=== PATIENT | female | born 1935 | race Caucasian/White ===

== ENCOUNTER → 2016-11-10 | Outpatient (CLI) | payer OTHER ==
[~2016-11-10] MED LIST: ASPEC81 PO; CALC1TAB10 PO; CHOL1TAB4 PO; FSM70 PO; GLUC750T18 PO; LISI-461 PO
[2016-11-10 17:25] LABS: BASO % 0.3 %; BASO ABS # 0.02 K/uL (0-0.2); COMPLETE YES; EOS % 0.8 %; HEMATOCRIT 41.1 % (37-47); IG% 0.3 %; LYMPH % 28.1 %; LYMPH ABS # 1.86 K/uL (1.2-3.4); MEAN CELL VOLUME 97.9 fL (80-100); MEAN CORPUSCULAR HEMOGLOBIN 31.9 pg (25-34); MEAN CORPUSCULAR HGB CONC 32.6 g/dl (32-36); MEAN PLATELET VOLUME 11.1 fL (7.4-10.4); MONO % 7.3 %; NEUT % 63.2 %; PLATELET COUNT 179 K/uL (130-400); WHITE BLOOD COUNT 6.61 K/uL (4.8-10.8)
[2016-11-10 17:37] LABS: ALT/SGPT 18 U/L (12-78); BLOOD UREA NITROGEN 28 mg/dl (7-18); BUN/CREATININE RATIO 25.4 (10-20); CALCIUM 9.2 mg/dl (8.5-10.1); CARBON DIOXIDE 27 mmol/L (21-32); CHLORIDE 101 mmol/L (98-107); GLUCOSE 88 mg/dl (70-99); POTASSIUM 4.3 mmol/L (3.5-5.1); SODIUM 139 mmol/L (136-145)
[2016-11-10 17:47] LABS: ALB/GLOB RATIO 0.8 (0.9-2); ALKALINE PHOSPHATASE 56 U/L (45-117); AST/SGOT 19 U/L (15-37); THYROID STIMULATING HORMONE 0.775 uIu/ml (0.300-4.500)
[2016-11-11 06:11] LABS: ESTIMATED AVERAGE GLUCOSE 108 mg/dl; HA1C FLAG Normal (Normal)
--- NOTE | 2016-11-16 08:53 | CODING QUERY MEDICAL NECESSITY ---
SUPPORTING DIAGNOSIS NEEDED A supporting diagnosis is required for the test/procedure performed on this patient in order for us to be reimbursed by the patient's insurance. Please provide a supporting diagnosis for the following test/procedure listed below next to the test name along with your signature. *If there is no additional diagnosis for this patient that would support the following test/procedure please document that below next to the test/procedure. Test(s)/Procedure(s) that require a supporting diagnosis: * GLYCATED HEMOGLOBIN DIAGNOSIS: * DOS: 11/10/16 Provider Signature: Date: Thank you Eugenia Gleason Health Information Management Once completed, please kindly fax back to [phone] For questions please call [phone]
== END | disposition home or self-care (01) ==
LOC: C.LABBFT 12:11
PROVIDERS: ATTEND Internal Medicine
DX: M17.11 Unilateral primary osteoarthritis, right knee (principal); R73.01 Impaired fasting glucose

== ENCOUNTER → 2017-07-20 | Outpatient (CLI) | payer OTHER ==
[2017-07-20 16:49] LABS: BASO % 0.7 %; BASO ABS # 0.06 K/uL (0-0.2); COMPLETE YES; EOS % 1.2 %; HEMATOCRIT 38.5 % (37-47); IG% 0.4 %; LYMPH % 23.8 %; LYMPH ABS # 2.19 K/uL (1.2-3.4); MEAN CELL VOLUME 97.7 fL (80-100); MEAN CORPUSCULAR HGB CONC 33.8 g/dl (32-36); MONO % 6.6 %; NEUT % 67.3 %; PLATELET COUNT 258 K/uL (130-400); RED BLOOD COUNT 3.94 M/uL (4.2-5.4); WHITE BLOOD COUNT 9.19 K/uL (4.8-10.8)
[2017-07-20 17:09] LABS: ALT/SGPT 18 U/L (12-78); AST/SGOT 15 U/L (15-37); BLOOD UREA NITROGEN 52 mg/dl (7-18); BUN/CREATININE RATIO 26.9 (10-20); CALCIUM 8.6 mg/dl (8.5-10.1); CARBON DIOXIDE 26 mmol/L (21-32); CHLORIDE 102 mmol/L (98-107); CREATININE 1.93 mg/dl (0.60-1.20); GLUCOSE 98 mg/dl (70-99); POTASSIUM 4.3 mmol/L (3.5-5.1); SODIUM 137 mmol/L (136-145)
[2017-07-20 17:19] LABS: ALB/GLOB RATIO 0.9 (0.9-2); ALKALINE PHOSPHATASE 68 U/L (45-117); CHOLESTEROL 200 mg/dl (0-200); CHOLESTEROL/HDL RATIO 2.6; HDL CHOLESTEROL 78 mg/dl; LDL CHOLESTEROL CALCULATED 94 mg/dl; THYROID STIMULATING HORMONE 0.747 uIu/ml (0.300-4.500); TRIGLYCERIDES 140 mg/dl (0-150); VERY LOW DENSITY LIPOPROT CALC 28 mg/dl
== END | disposition home or self-care (01) ==
LOC: C.LABBC 15:32
PROVIDERS: ATTEND Physician Assistant Medical
DX: Z00.00 Encounter for general adult medical examination without abnormal findings (principal); I10 Essential (primary) hypertension; M81.0 Age-related osteoporosis without current pathological fracture; R73.01 Impaired fasting glucose

== ENCOUNTER → 2017-08-10 | Outpatient (CLI) | payer OTHER ==
--- NOTE | 2017-08-10 14:26 | ECHOCARDIOGRAM REPORT ---
*NOTICE TO RECEIVING LIBERTARIAN AGENCY This information is strictly Confidential and protected under [place] law. [place] law prohibits you from making any further disclosure of this information unless further disclosure is expressly permitted by the written consent of the person to whom it pertains or is authorized by law. A general authorization for the release of medical or other information is not sufficient for this purpose. Hospital accepts no responsibility if the information is made available to any other person, INCLUDING THE PATIENT. Interpretation Summary * Name: DMITRY RODRIGUEZ Study Date: 08/10/2017 12:09 PM BP: 176/80 mmHg * Patient Location: [facility], [place] HR: 56 * : 1935 (M/d/yyyy) Gender: Female Height: 62 in * Age: 82 yrs Ethnicity: [place] Weight: 180 lb * Ordering Physician: Pooja Ballard * Referring Physician: Pooja Ballard * Performed By: Gideon Vasquez RCS * * Reason For Study: Chest Pain * BSA: 1.8 m2 * -- Conclusions -- * 1. Normal LV size. Borderline concentric LVH. * 2. Normal LV systolic function. LVEF 60-65%. No regional wall motion abnormalities. * 3. Normal RV size and function. * 4. No significant valvular pathology. * 5. Grade I diastolic dysfunction. * 6. Moderate left atrial dilation. * 7. Normal estimated RA and PA pressures. * 8. No prior studies for comparison. Procedure Details * A complete two-dimensional transthoracic echocardiogram was performed (2D, M-mode, Doppler and color flow Doppler). Left Ventricle * The left ventricle is grossly normal size. * There is borderline concentric left ventricular hypertrophy. * Ejection Fraction = 60-65%. * No regional wall motion abnormalities noted. Right Ventricle * The right ventricle is grossly normal size. * The right ventricular systolic function is normal as assessed by tricuspid annular plane systolic excursion (TAPSE) (normal >1.5 cm). Atria * The left atrium is moderately dilated. * Right atrial size is normal. * No ASD detected; PFO is not assessed. Mitral Valve * The mitral valve is grossly normal. * There is no mitral valve stenosis. * There is trace mitral regurgitation. Tricuspid Valve * The tricuspid valve is not well visualized, but is grossly normal. * There is trace tricuspid regurgitation. Aortic Valve * The aortic valve opens well. * The aortic valve is trileaflet. * No hemodynamically significant valvular aortic stenosis. * There is no significant aortic regurgitation. Pulmonic Valve * The pulmonary valve is inadequately visualized, but the Doppler data is adequate for interpretation. * Pulmonic stenosis is absent. * There is no significant pulmonary regurgitation. Great Vessels * The aortic root and proximal ascending aorta are normal sized. Pericardium/Pleural * There is no pericardial effusion. Great Vessels * Normal inferior vena cava size and collapsability with sniff indicates a normal right atrial pressure of 3 mmHg * There is no evidence of pulmonary hypertension. The PA systolic pressure is less than 36 mmHg. Left Ventricular Diastolic Function * Grade I diastolic dysfunction, (abnormal relaxation pattern). MMode 2D Measurements and Calculations IVSd 1.1 cm IVSs 1.3 cm LVIDd 4.2 cm LVIDs 2.7 cm LVPWd 1.0 cm LVPWs 1.3 cm IVS/LVPW 1.0 FS 35.5 % EDV(Teich) 77.1 ml ESV(Teich) 26.7 ml EF(Teich) 65.3 % EDV(cubed) 72.3 ml ESV(cubed) 19.4 ml EF(cubed) 73.1 % % IVS thick 24.0 % % LVPW thick 24.3 % LV mass(C)d 147.4 grams LV mass(C)dI 80.7 grams/m\S\2 LV mass(C)s 110.0 grams LV mass(C)sI 60.2 grams/m\S\2 SV(Teich) 50.4 ml SI(Teich) 27.6 ml/m\S\2 SV(cubed) 52.9 ml SI(cubed) 28.9 ml/m\S\2 Ao root diam 3.6 cm Ao root area 10.2 cm\S\2 ACS 1.8 cm LA dimension 3.2 cm asc Aorta Diam 3.1 cm LA/Ao 0.88 EDV(MOD-sp4) 79.0 ml ESV(MOD-sp4) 33.0 ml EF(MOD-sp4) 58.2 % EDV(MOD-sp2) 86.0 ml ESV(MOD-sp2) 67.0 ml EF(MOD-sp2) 22.1 % SV(MOD-sp4) 46.0 ml SI(MOD-sp4) 25.2 ml/m\S\2 SV(MOD-sp2) 19.0 ml SI(MOD-sp2) 10.4 ml/m\S\2 Doppler Measurements and Calculations MV E max anastasiia 50.0 cm/sec MV A max anastasiia 85.4 cm/sec MV E/A 0.59 MV P1/2t max anastasiia 56.5 cm/sec MV P1/2t 99.1 msec MVA(P1/2t) 2.2 cm\S\2 MV dec slope 166.9 cm/sec\S\2 MV dec time 0.37 sec Ao V2 max 127.1 cm/sec Ao max PG 6.5 mmHg Ao max PG (full) 4.2 mmHg LV V1 max PG 2.3 mmHg LV V1 max 75.1 cm/sec PA V2 max 94.0 cm/sec PA max PG 3.5 mmHg TR max anastasiia 230.4 cm/sec
== END | disposition home or self-care (01) ==
LOC: C.CPL 12:05
PROVIDERS: ATTEND Physician Assistant Medical
DX: R07.9 Chest pain, unspecified (principal)

== ENCOUNTER → 2018-01-20 | Outpatient (CLI) | payer OTHER ==
[2018-01-20 16:38] LABS: BASO % 0.5 %; BASO ABS # 0.04 K/uL (0-0.2); EOS % 1.4 %; EOS ABS # 0.12 K/uL (0-0.5); HEMATOCRIT 40.1 % (37-47); IG# 0.05 K/uL (0.00-0.02); LYMPH % 24.5 %; LYMPH ABS # 2.06 K/uL (1.2-3.4); MEAN CORPUSCULAR HEMOGLOBIN 32.7 pg (25-34); MEAN CORPUSCULAR HGB CONC 32.4 g/dl (32-36); MEAN PLATELET VOLUME 10.2 fL (7.4-10.4); MONO % 7.6 %; MONO ABS # 0.64 K/uL (0.11-0.59); NEUT % 65.4 %; PLATELET COUNT 229 K/uL (130-400); RED CELL DISTRIBUTION WIDTH CV 12.8 % (11.5-14.5); RED CELL DISTRIBUTION WIDTH SD 46.3 fL (36.4-46.3); WHITE BLOOD COUNT 8.41 K/uL (4.8-10.8)
[2018-01-20 16:48] LABS: ALBUMIN 3.4 gm/dl (3.4-5.0); ALT/SGPT 18 U/L (12-78); AST/SGOT 21 U/L (15-37); BLOOD UREA NITROGEN 41 mg/dl (7-18); CALCIUM 8.7 mg/dl (8.5-10.1); CARBON DIOXIDE 30 mmol/L (21-32); GLUCOSE 97 mg/dl (70-99); POTASSIUM 4.9 mmol/L (3.5-5.1); SODIUM 139 mmol/L (136-145)
[2018-01-20 16:51] LABS: ALKALINE PHOSPHATASE 49 U/L (45-117); TOTAL PROTEIN 7.4 gm/dl (6.4-8.2)
[2018-01-21 07:33] LABS: HEMOGLOBIN A1C 5.5 % (4.5-5.6)
== END | disposition home or self-care (01) ==
LOC: C.LABBFT 11:32
PROVIDERS: ATTEND Internal Medicine
DX: I10 Essential (primary) hypertension (principal); M81.0 Age-related osteoporosis without current pathological fracture; R73.01 Impaired fasting glucose

== ENCOUNTER → 2018-01-25 | Outpatient (CLI) | payer OTHER ==
--- NOTE | 2018-01-25 13:01 | DIAGNOSTIC IMAGING REPORT ---
CHEST 2 VIEWS ROUTINE CLINICAL HISTORY: R06.09 Dyspnea on [id number] Fatigue, unspecified [id number] COMPARISON STUDY: 05/15/2014 FINDINGS: Mild stable cardiomegaly. Mild emphysematous change. Diaphragms smooth. There are no focal infiltrates. IMPRESSION: Mild emphysematous change. No acute process. The above report was generated using voice recognition software. It may contain grammatical, syntax or spelling errors. Electronically signed by: Petar Berry M.D. 01/25/2018 1:00 PM Dictated Date/Time: 01/25/2018 12:59 PM
== END | disposition home or self-care (01) ==
LOC: C.RADBC 12:32
PROVIDERS: ATTEND Internal Medicine
DX: R06.09 Other forms of dyspnea (principal); R53.83 Other fatigue

== ENCOUNTER → 2018-02-15 | Outpatient (CLI) | payer OTHER ==
[~2018-02-15] MED LIST changes: +ATROPINE SULFATE 0.1 MG/ML 10 ML SYR ONE; +DOBUTamine HCL 12.5 MG/ML 20 ML VIAL ONE; +METOPROLOL TARTRATE 1 MG/ML VIAL ONE
--- NOTE | 2018-02-15 13:42 | DOBUTAMINE ECHO ---
*NOTICE TO RECEIVING CONSTITUTION PARTY AGENCY This information is strictly Confidential and protected under [place] law. [place] law prohibits you from making any further disclosure of this information unless further disclosure is expressly permitted by the written consent of the person to whom it pertains or is authorized by law. A general authorization for the release of medical or other information is not sufficient for this purpose. Hospital accepts no responsibility if the information is made available to any other person, INCLUDING THE PATIENT. Interpretation Summary * Name: DMITRY RODRIGUEZ Study Date: 02/15/2018 09:07 AM BP: 147/77 mmHg * Patient Location: [facility] HR: 57 * : 1935 (M/d/yyyy) Gender: Female Height: 62 in * Age: 82 yrs Ethnicity: [place] Weight: 198 lb * Ordering Physician: Best Sow * Referring Physician: Best Sow * Performed By: Coleen Vasquez RCS * * Reason For Study: Dyspnea on Exertion, Fatigue * BSA: 1.9 m2 * -- Conclusions -- * Left ventricular systolic function is normal. * Normal dobutamine echocardiogram without evidence of inducible ischemia. Procedure Details * DOBUTAMINE ECHO, CPT#21039 Left Ventricular Findings with Stress * Normal dobutamine echocardiogram without evidence of inducible ischemia. Left Ventricle * The left ventricle is grossly normal size. * Left ventricular systolic function is normal. * The left ventricular wall motion is normal at rest. Mitral Valve * The mitral valve is grossly normal. Stress Parameters * Normal baseline electrocardiogram. * Stress ECG: No ST changes. No arrhythmias. * The stress portion of this study was personally supervised by the undersigned interpreting physician. * Rest heart rate was '57' BPM. * Rest blood pressure was '147/77' * Maximum heart rate achieved was 121 bpm. * Maximum heart rate was 88 % of maximum age-predicted heart rate. * Maximum blood pressure was '159/61' * Maximum Dobutamine infusion rate was '50' mcg/kg/min. * A total of .5 mg of intravenous Atropine was used to supplement Dobutamine for heart rate response. * Dobutamine infusion was terminated due to achieving target heart rate * A total of 5 mg of IV Metoprolol was administered to reverse Dobutamine-induced tachycardia. * The patient did not exhibit any symptoms during drug infusion. * Normal blood pressure response to exercise. Left Ventricular Findings with Stress * Limited study to evaluate for inducible ischemia Baseline EKG was normal sinus There were no significant ST or T-wave changes with dobutamine infusion Baseline echocardiogram demonstrated preserved LV systolic function with normal wall motion At peak dobutamine infusion there was normal augmentation of all segments without development of wall motion abnormality There were no symptoms reported during the test
== END | disposition home or self-care (01) ==
LOC: C.CPL 09:13
PROVIDERS: ATTEND Internal Medicine
DX: R06.09 Other forms of dyspnea (principal); R53.83 Other fatigue

== ENCOUNTER → 2018-04-18 | Outpatient (CLI) | payer OTHER ==
[~2018-04-18] MED LIST changes: -ATROPINE SULFATE 0.1 MG/ML 10 ML SYR ONE; -DOBUTamine HCL 12.5 MG/ML 20 ML VIAL ONE; -METOPROLOL TARTRATE 1 MG/ML VIAL ONE
--- NOTE | 2018-04-18 11:13 | DIAGNOSTIC IMAGING REPORT ---
SINUSES MIN 3 VIEWS ROUTINE CLINICAL HISTORY: R05 Cough COMPARISON STUDY: None. FINDINGS: The paranasal sinuses and mastoid air cells are clear. No fluid levels within the paranasal sinuses. The nasal septum is essentially midline. The orbital floors are intact. IMPRESSION: The paranasal sinuses and mastoid air cells are clear. Electronically signed by: Elmer Arizmendi M.D. 04/18/2018 11:12 AM Dictated Date/Time: 04/18/2018 11:06 AM
== END | disposition home or self-care (01) ==
LOC: C.RAD1850 10:33
PROVIDERS: ATTEND Physician Assistant
DX: R05 Cough (principal)

== ENCOUNTER 2020-03-20 11:22 | Observation (INO) ==
[2020-03-20 12:31] LABS: Basophils # (auto) 0.03 K/uL (0-0.2); Basophils % (auto) 0.3 %; Eosinophils # (auto) 0.02 K/uL (0-0.5); Eosinophils % (auto) 0.2 %; Hematocrit (blood only) 40.9 % (37-47); Hemoglobin 13.3 g/dL (12.0-16.0); Immature Granulocytes # (auto) 0.07 K/uL (0.00-0.02); Immature Granulocytes % (auto) 0.6 %; Lymphocytes # (auto) 0.89 K/uL (1.2-3.4); Lymphocytes % (auto) 8.2 %; Mean Corpuscular Hemoglobin 31.5 pg (25-34); Mean Corpuscular Hgb Conc 32.5 g/dL (32-36); Mean Corpuscular Volume 96.9 fL (80-100); Mean Platelet Volume 9.7 fL (7.4-10.4); Monocytes # (auto) 0.54 K/uL (0.11-0.59); Neutrophils # (auto) 9.24 K/uL (1.4-6.5); Neutrophils % (auto) 85.7 %; Platelet Count 259 K/uL (130-400); RDW Coefficient of Variation 12.7 % (11.5-14.5); Red Blood Count 4.22 M/uL (4.2-5.4); White Blood Count 10.79 K/uL (4.8-10.8)
[2020-03-20 12:49] LABS: Albumin Level 3.5 gm/dl (3.4-5.0); BUN Creatinine Ratio 23.4 (10-20); Calcium 9.2 mg/dl (8.5-10.1); Creatinine Clr Calc Pharmacy 27.1 ml/min; Est GFR (African American) 29.2; Est GFR (Non-African American) 25.2; Potassium 4.4 mmol/L (3.5-5.1)
[2020-03-20 12:52] LABS: Albumin Globulin Ratio 0.8 (0.9-2); Bilirubin,Total 0.5 mg/dl (0.2-1); Globulin 4.2 gm/dl (2.5-4.0); Total Protein 7.7 gm/dl (6.4-8.2)
[2020-03-20] MEDS ORDERED: ONDANSETRON INJ 2 MG/ML 2 ML VIAL IV STA (12:54)
[2020-03-20] MEDS ORDERED: SODIUM CHLORIDE 0.9% 1000ML 250 ML IV ONE (12:54)
[2020-03-20] MEDS ORDERED: SODIUM CHLORIDE 0.9% 1000ML 1,000 ML IV SCH (13:00)
--- NOTE | 2020-03-20 14:07 | Emergency Department Note ---
History of Present Illness General Chief complaint: GI Assessment Stated complaint: abd pain Source: patient, family and RN notes reviewed Mode of arrival: ambulatory Limitations: no limitations History of Present Illness Provider complaint: Vomiting, diarrhea Maximum Pain Intensity: 4 This patient is an 84-year-old female who presents emergency department with complaints of vomiting and diarrhea that began this morning. Patient states she was in her usual state of health this morning upon awakening. She made breakfast and ate it without difficulty. Shortly thereafter she became dizzy and nauseated. She vomited 4-5 times at the breakfast table and lost control of her bowels. Patient denies any blood in either the emesis or stool. Patient denies any significant fevers, chills, chest pain or shortness of breath. She states she has had several syncopal episodes in the past, but nothing clearly similar to this. She has no known sick contacts and lives at home with her family. Home Medications Home Medications Medication Instructions Recorded Confirmed Type aspirin 81 mg tablet,delayed 81 mg PO DAILY tab 07/10/19 03/20/20 History release albuterol sulfate 90 mcg/actuation 2 puffs INHALATION Q4H PRN #1 gm 10/02/19 03/20/20 History aerosol inhaler antiarthritic combination no.2 900 900 mg PO BID tab 10/02/19 03/20/20 History mg tablet calcium carbonate-vitamin D3 1,000 1 tab PO BID tab 10/02/19 03/20/20 History mg (2,500 mg)-800 unit tablet cholecalciferol (vitamin D3) 125 125 mcg PO DAILY tab 10/02/19 03/20/20 History mcg (5,000 unit) tablet clotrimazole-betamethasone 1 1 appln TOPICAL BID #60 gm 10/02/19 03/20/20 History %-0.05 % topical cream echinacea purpurea aerial 350 mg 350 mg PO DAILY cap 10/02/19 03/20/20 History capsule lactobacillus combination no.4 3 3,000 mmu cells PO DAILY 10/02/19 03/20/20 History billion cell capsule lutein 10 mg tablet 10 mg PO DAILY tab 10/02/19 03/20/20 History sodium chloride 0.65 % nasal spray 2 sprays INTRANASAL BID #1 ml 10/02/19 03/20/20 History aerosol fluticasone propionate 50 1 - 2 sprays INTRANASAL DAILY 01/10/20 03/20/20 Rx mcg/actuation nasal #18.2 ml spray,suspension lisinopril 20 1 tab PO DAILY #90 tab 02/12/20 03/20/20 Rx mg-hydrochlorothiazide 12.5 mg tablet metoprolol tartrate 25 mg tablet 12.5 mg PO BID #90 tab 03/03/20 03/20/20 Rx umeclidinium 62.5 mcg-vilanterol 1 puffs INHALATION DAILY #60 ea 03/17/20 03/20/20 Rx 25 mcg/actuation powdr for inhalation amoxicillin 500 mg PO TID #8 tab 03/21/20 Rx diclofenac sodium [Voltaren] 2 gm TOP QID #300 gm 03/22/20 Rx gabapentin 100 mg PO HS #30 cap 03/22/20 Rx Allergies Allergy/AdvReac Type Severity Reaction Status Date / Time latex Allergy Intermediate SEVERE Verified 03/20/20 12:21 ITCHING cephalexin Allergy Mild RASH Verified 03/20/20 12:21 Past Med/Surg History Medical History Arthritis, multiple joint involvement (Chronic) Balance problems (Chronic) Bradycardia (Chronic) CKD (chronic kidney disease), stage III (Chronic) COPD (chronic obstructive pulmonary disease) (Chronic) Dyspnea on exertion (Chronic) HTN (hypertension) (Chronic) Hypercholesterolemia (Chronic) Impaired fasting glucose (Chronic) Nocturia (Chronic) Osteoporosis (Chronic) Secondary hypothyroidism (Chronic) Syncope (Inactive) Syncope and collapse (Inactive 05/15/14) Surgical History H/O: hysterectomy (Resolved) History of breast biopsy History of bunionectomy History of carpal tunnel surgery History of inguinal hernia repair History of myringotomy History of rotator cuff surgery Jul 2011--Dr. Whitten Hx of adenoidectomy (Resolved) Hx of tonsillectomy (Resolved) S/P appendectomy (Resolved) S/P cholecystectomy (Resolved) Family History Mother Alzheimer disease Family/Other No problems noted. 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 and A total of 10 systems reviewed and were otherwise negative Physical Exam Vital Signs Vital Signs - 24 hr 03/20/20 11:35 03/20/20 12:31 03/20/20 14:00 Temperature 36.9 C Temperature Source Oral Pulse Rate 55 L Pulse Rate [Apical] 57 L 59 L Pulse Rhythm Regular Pulse Rhythm [Apical] Regular Regular Pulse Strength Normal Respiratory Rate 24 20 18 Respiratory Effort / Characteristics Non-Labored Spontaneous Non-Labored Spontaneous Non-Labored Spontaneous Respiratory Depth Normal Normal Respiratory Pattern Regular Regular Regular Blood Pressure 166/71 H Blood Pressure [Right Arm] 175/79 H 176/70 H Blood Pressure Mean 102 Blood Pressure Mean [Right Arm] 111 105 Pulse Oximetry 97 98 97 Oxygen Delivery Method Room Air Room Air Room Air Sepsis Recent Fever Within 48 Hours No Sepsis New/Unexplained Change in Mental Status No Sepsis Action Taken by Nursing No Action Required Vital signs reviewed. General: Elderly, generally well-appearing 84-year-old female, in no significant distress. HEENT: No scleral icterus, PERRLA, neck supple. Atraumatic. Cardiovascular: Regular rate and rhythm, no extra sounds. Pulmonary: Clear to auscultation bilaterally, normal work of breathing. Abdomen: Soft, obese, nontender, nondistended, positive bowel sounds. Musculoskeletal: Atraumatic, no peripheral edema. Neurologic: Patient awake alert and oriented x 3 Skin: Warm, dry, no rash Course Administered Medications Discontinued Medications Amoxicillin (Amoxil) 500 mg PO NOW STA Stop: 03/20/20 15:43 Last Admin: 03/20/20 16:07 Dose: 500 mg Documented by: [id number] Amoxicillin (Amoxil) 500 mg PO TID GARO Stop: 03/25/20 20:59 Last Admin: 03/21/20 09:30 Dose: 500 mg Documented by: [id number] Admin: 03/20/20 21:49 Dose: 500 mg Documented by: [id number] Amoxicillin (Amoxil) 500 mg PO BID [facility]; Protocol Stop: 03/25/20 20:59 Last Admin: 03/22/20 07:56 Dose: 500 mg Documented by: [id number] Admin: 03/21/20 21:31 Dose: 500 mg Documented by: [id number] Aspirin (Ecotrin Ectab) 81 mg PO DAILY [facility] Stop: 04/20/20 08:59 Last Admin: 03/22/20 07:54 Dose: 81 mg Documented by: [id number] Admin: 03/21/20 09:30 Dose: 81 mg Documented by: [id number] Betamethasone/Clotrimazole (Lotrisone 1/0.5%) 1 appln EXT BID [facility] Stop: 04/19/20 20:59 Last Admin: 03/22/20 07:57 Dose: 1 appln Documented by: [id number] Admin: 03/21/20 21:33 Dose: 1 appln Documented by: [id number] Admin: 03/21/20 09:26 Dose: Not Given Documented by: [id number] Admin: 03/20/20 21:51 Dose: 1 appln Documented by: [id number] Diclofenac Sodium (Voltaren 1% Top) 2 gm EXT QID [facility] Stop: 04/19/20 20:59 Last Admin: 03/22/20 07:58 Dose: 2 gm Documented by: [id number] Admin: 03/21/20 21:33 Dose: 2 gm Documented by: [id number] Admin: 03/21/20 17:41 Dose: Not Given Documented by: [id number] Admin: 03/21/20 13:56 Dose: 2 gm Documented by: [id number] Admin: 03/21/20 09:28 Dose: 2 gm Documented by: [id number] Admin: 03/20/20 21:51 Dose: 2 gm Documented by: [id number] Famotidine (Pepcid 20mg Iv Push) 20 mg IV ONE STA Stop: 03/20/20 15:43 Last Admin: 03/20/20 16:07 Dose: 20 mg Documented by: [id number] Fluticasone Propionate (Flonase) 1 sprays NA DAILY [facility] Stop: 04/20/20 08:59 Last Admin: 03/22/20 07:57 Dose: 1 sprays Documented by: [id number] Admin: 03/21/20 09:24 Dose: 1 sprays Documented by: [id number] Lisinopril/HCTZ (Prinzide 20/12.5mg) 1 tab PO DAILY GARO Stop: 04/20/20 08:59 Last Admin: 03/22/20 07:54 Dose: 1 tab Documented by: [id number] Admin: 03/21/20 09:30 Dose: 1 tab Documented by: [id number] Sodium Chloride (Nss 1000ml) 250 mls @ 999 mls/hr IV .Q16M ONE Stop: 03/20/20 13:09 Last Infusion: 03/20/20 13:35 Dose: 0 mls/hr Documented by: [id number] Admin: 03/20/20 13:15 Dose: 999 mls/hr Documented by: [id number] Sodium Chloride (Nss 1000ml) 1,000 mls @ 125 mls/hr IV .Q8H GARO Stop: 04/19/20 12:59 Last Infusion: 03/20/20 21:02 Dose: 0 mls/hr Documented by: [id number] Admin: 03/20/20 13:15 Dose: 125 mls/hr Documented by: [id number] Lorazepam (Ativan) 0.5 mg in 1 mls @ 1 mls/min IV NOW STA Stop: 03/20/20 15:43 Last Admin: 03/20/20 16:07 Dose: 1 mls/min Documented by: [id number] Sodium Chloride (Nss 1000ml) 1,000 mls @ 80 mls/hr IV .[id number] GARO Stop: 04/19/20 20:39 Last Infusion: 03/21/20 13:20 Dose: 0 mls/hr Documented by: [id number] Infusion: 03/21/20 13:20 Dose: 0 mls/hr Documented by: [id number] Admin: 03/21/20 10:41 Dose: 80 mls/hr Documented by: [id number] Infusion: 03/21/20 10:18 Dose: 80 mls/hr Documented by: [id number] Admin: 03/20/20 21:48 Dose: 80 mls/hr Documented by: [id number] Lactobacillus Acidophilus (Floranex) 4 tab PO DAILY GARO Stop: 04/20/20 08:59 Last Admin: 03/22/20 07:54 Dose: 4 tab Documented by: [id number] Admin: 03/21/20 09:30 Dose: 4 tab Documented by: [id number] Lidocaine (Lidoderm 5%) 1 patch TD QAM GARO Stop: 04/21/20 10:14 Last Admin: 03/22/20 11:51 Dose: 1 patch Documented by: [id number] Metoprolol Tartrate (Lopressor) 12.5 mg PO BID GARO Stop: 04/19/20 20:59 Last Admin: 03/22/20 07:56 Dose: Not Given Documented by: [id number] Admin: 03/21/20 21:36 Dose: 12.5 mg Documented by: [id number] Admin: 03/21/20 09:30 Dose: 12.5 mg Documented by: [id number] Admin: 03/20/20 21:52 Dose: 12.5 mg Documented by: [id number] Multivitamins/Minerals (Caltrate Plus) 1 tab PO BID GARO Stop: 04/19/20 20:59 Last Admin: 03/22/20 07:56 Dose: 1 tab Documented by: [id number] Admin: 03/21/20 21:32 Dose: 1 tab Documented by: [id number] Admin: 03/21/20 09:30 Dose: 1 tab Documented by: [id number] Admin: 03/20/20 21:48 Dose: 1 tab Documented by: [id number] Ondansetron HCl (Zofran) 4 mg IV NOW STA Stop: 03/20/20 12:55 Last Admin: 03/20/20 13:15 Dose: Not Given Documented by: [id number] Sodium Chloride (Simpson Nasal) 2 sprays NA BID GARO Stop: 04/19/20 20:59 Last Admin: 03/22/20 07:57 Dose: 2 sprays Documented by: [id number] Admin: 03/21/20 21:32 Dose: 2 sprays Documented by: [id number] Admin: 03/21/20 09:27 Dose: 2 sprays Documented by: [id number] Admin: 03/20/20 21:50 Dose: 2 sprays Documented by: [id number] Umeclidinium/Vilanterol (Anoro Ellipta 62.5/25 Mcg Inh) 1 puffs INH DAILY GARO Stop: 04/20/20 08:59 Last Admin: 03/22/20 07:56 Dose: 1 puffs Documented by: [id number] Admin: 03/21/20 09:23 Dose: 1 puffs Documented by: [id number] Vitamin D (Vitamin D3) 5,000 units PO DAILY GARO Stop: 04/20/20 08:59 Last Admin: 03/22/20 07:54 Dose: 5,000 units Documented by: [id number] Admin: 03/21/20 09:30 Dose: 5,000 units Documented by: [id number] Medical Decision Making Differential Diagnosis Differential diagnosis: Etiologies such as gastroenteritis, food borne illness, infections, appendicitis, diverticulitis, inflammatory bowel disease, obstruction, GI bleed, biliary pathology, cardiac process, intracranial process, as well as others were entertained. Medical Records Attestation: I reviewed the patient's medical records. Home Medications Current Medication List: was personally reviewed by me Laboratory Data Attestation: I reviewed the patient's lab results. Result diagrams: 03/20/20 12:13 03/21/20 10:31 Lab Results 03/20/20 03/20/20 03/20/20 Range/Units 12:13 12:13 12:13 WBC 10.79 (4.8-10.8) K/uL RBC 4.22 (4.2-5.4) M/uL Hgb 13.3 (12.0-16.0) g/dL Hct 40.9 (37-47) % MCV 96.9 (80-100) fL MCH 31.5 (25-34) pg MCHC 32.5 (32-36) g/dL RDW Std Deviation 45.0 (36.4-46.3) fL RDW Coeff of Stiven 12.7 (11.5-14.5) % Plt Count 259 (130-400) K/uL MPV 9.7 (7.4-10.4) fL Immature Gran % (Auto) 0.6 % Neut % (Auto) 85.7 % Lymph % (Auto) 8.2 % [place] % (Auto) 5.0 % Eos % (Auto) 0.2 % Baso % (Auto) 0.3 % Neut # (Auto) 9.24 H (1.4-6.5) K/uL Lymph # (Auto) 0.89 L (1.2-3.4) K/uL [place] # (Auto) 0.54 (0.11-0.59) K/uL Eos # (Auto) 0.02 (0-0.5) K/uL Baso # (Auto) 0.03 (0-0.2) K/uL Immature Gran # (Auto) 0.07 H (0.00-0.02) K/uL Sodium 134 L (136-145) mmol/L Potassium 4.4 (3.5-5.1) mmol/L Chloride 101 (98-107) mmol/L Carbon Dioxide 25 (21-32) mmol/L Anion Gap 8.0 (3-11) BUN 42 H (7-18) mg/dl Creatinine 1.80 H (0.6-1.2) mg/dl Est Cr Clr Drug Dosing 27.1 ml/min Est GFR ( Amer) 29.2 Est GFR (Non-Af Amer) 25.2 BUN/Creatinine Ratio 23.4 H (10-20) Glucose 143 H (70-99) mg/dl Calcium 9.2 (8.5-10.1) mg/dl Total Bilirubin 0.5 (0.2-1) mg/dl AST 18 (15-37) U/L ALT 19 (12-78) U/L Alkaline Phosphatase 63 (45-117) U/L Troponin I < 0.015 (0-0.045) ng/ml Total Protein 7.7 (6.4-8.2) gm/dl Albumin 3.5 (3.4-5.0) gm/dl Globulin 4.2 H (2.5-4.0) gm/dl Albumin/Globulin Ratio 0.8 L (0.9-2) Lipase 203 (73-393) U/L Urine Color Urine Appearance (Clear) Urine pH (4.5-7.5) Ur Specific [place] (1.000-1.030) Urine Protein (Negative) Urine Glucose (UA) (Negative) Urine Ketones (Negative) Urine Blood (Negative) Urine Nitrite (Negative) Urine Bilirubin (Negative) Urine Urobilinogen (Negative) Ur Leukocyte Esterase (Negative) Urine WBC (Auto) (0-5) /hpf Urine RBC (Auto) (0-4) /hpf U Hyaline Cast (Auto) (0-5) /lpf U Epithel Cells (Auto) (0-5) /lpf Urine Bacteria (Auto) (Negative) 03/20/20 Range/Units 14:45 WBC (4.8-10.8) K/uL RBC (4.2-5.4) M/uL Hgb (12.0-16.0) g/dL Hct (37-47) % MCV (80-100) fL MCH (25-34) pg MCHC (32-36) g/dL RDW Std Deviation (36.4-46.3) fL RDW Coeff of Stiven (11.5-14.5) % Plt Count (130-400) K/uL MPV (7.4-10.4) fL Immature Gran % (Auto) % Neut % (Auto) % Lymph % (Auto) % [place] % (Auto) % Eos % (Auto) % Baso % (Auto) % Neut # (Auto) (1.4-6.5) K/uL Lymph # (Auto) (1.2-3.4) K/uL [place] # (Auto) (0.11-0.59) K/uL Eos # (Auto) (0-0.5) K/uL Baso # (Auto) (0-0.2) K/uL Immature Gran # (Auto) (0.00-0.02) K/uL Sodium (136-145) mmol/L Potassium (3.5-5.1) mmol/L Chloride (98-107) mmol/L Carbon Dioxide (21-32) mmol/L Anion Gap (3-11) BUN (7-18) mg/dl Creatinine (0.6-1.2) mg/dl Est Cr Clr Drug Dosing ml/min Est GFR ( Amer) Est GFR (Non-Af Amer) BUN/Creatinine Ratio (10-20) Glucose (70-99) mg/dl Calcium (8.5-10.1) mg/dl Total Bilirubin (0.2-1) mg/dl AST (15-37) U/L ALT (12-78) U/L Alkaline Phosphatase (45-117) U/L Troponin I (0-0.045) ng/ml Total Protein (6.4-8.2) gm/dl Albumin (3.4-5.0) gm/dl Globulin (2.5-4.0) gm/dl Albumin/Globulin Ratio (0.9-2) Lipase (73-393) U/L Urine Color Yellow Urine Appearance Cloudy A (Clear) Urine pH 7.5 (4.5-7.5) Ur Specific [place] 1.013 (1.000-1.030) Urine Protein Negative (Negative) Urine Glucose (UA) Negative (Negative) Urine Ketones Negative (Negative) Urine Blood Negative (Negative) Urine Nitrite Positive A (Negative) Urine Bilirubin Negative (Negative) Urine Urobilinogen Negative (Negative) Ur Leukocyte Esterase 2+ H (Negative) Urine WBC (Auto) >30 H (0-5) /hpf Urine RBC (Auto) 0-4 (0-4) /hpf U Hyaline Cast (Auto) 1-5 (0-5) /lpf U Epithel Cells (Auto) 0-5 (0-5) /lpf Urine Bacteria (Auto) 3+ H (Negative) ECG Data Attestation: I personally reviewed and interpreted this ECG as follows: Indication: + chest pain and + vomiting Rate (beats per minute): 61 Rhythm: + normal sinus ECG Intervals/blocks: + Normal QT-c ECG ST segments: + Normal ST segments ECG Findings: + Q waves (Anterior); no PACs and no PVCs Blood Pressure Blood Pressure Findings: Elevated blood pressure Blood Pressure Disposition: did not require urgent referral MDM Narrative This patient was evaluated and appeared to be in no significant distress. IV ac cess was obtained and laboratory work was drawn. An order for cardiac monitoring was placed and the patient was found to be in a normal sinus rhythm. Patient was hydrated with normal saline solution and given IV Zofran for nausea. Patient's laboratory work is fairly reassuring with the exception of a mild creatinine elevation at 1.8. Troponin is normal. WBC is within normal limits. Urinalysis is concerning for infection. Patient has a documented allergy to Keflex. She was medicated with p.o. amoxicillin as she has grown a pansensitive E. coli from the urine in the past. Patient did express some substernal chest discomfort and was medicated with IV Pepcid as this is likely gastrointestinal from her recent vomiting episode. Patient was also given IV Ativan for her complaints of lower extremity cramping. After discussing the findings with the patient and her family member at the bedside, preparations for discharge were made. A short while later family called me back to the room and expressed their concern for the safety of the patient and how they would like to have her marianna tored.Consultation with case management as well as the hospitalist service was made. Patient seems happy with the plan and agrees. Impression & Plan Vomiting and diarrhea, UTI (urinary tract infection), Muscle cramps at night Discharge Plan Visit Data *Final* Discharge Date/Time: 03/20/20 19:56 Chief Complaint: GI Assessment Stated Complaint: abd pain ED Provider: Luly Elam Discharge Problem: Vomiting and diarrhea, UTI (urinary tract infection), Muscle cramps at night Patient Disposition: Home - Self-Care Condition: Good Discharge Instructions Interventions: ED Discharge Assessment Last Done: 03/20/20 19:56 Discharge Problem: UTI (urinary tract infection) Qualifiers: Urinary tract infection type: acute cystitis Hematuria presence: without hematuria Qualified Code(s): N30.00 - Acute cystitis without hematuria
[2020-03-20 15:04] LABS: Appearance Urine Cloudy (Clear); Bacteria Urine Automated 3+ (Negative); Bilirubin Urine Negative (Negative); Blood Urine Negative (Negative); Color Urine Yellow; Epithelial Cell Urine Auto 0-5 /lpf (0-5); Glucose Urine UA Negative (Negative); Ketones Urine Negative (Negative); Leukocyte Esterase Urine 2+ (Negative); Nitrite Urine Positive (Negative); Protein Urine Negative (Negative); RBC Urine Automated 0-4 /hpf (0-4); Specific Gravity Urine 1.013 (1.000-1.030); Urobilinogen Urine Negative (Negative); WBC Urine Automated >30 /hpf (0-5); pH Urine 7.5 (4.5-7.5)
[2020-03-20] MEDS ORDERED: LORazepam 0.5 MG/1 ML VIAL IV STA (15:42)
[2020-03-20] MEDS ORDERED: FAMOTIDINE 20MG/5ML IV PUSH IV STA (15:42)
[2020-03-20] MEDS ORDERED: AMOXICILLIN 500 MG CAP PO STA (15:42)
--- NOTE | 2020-03-20 19:08 | History & Physical Report ---
Date of Service March 20, 2020 Assessment & Plan (1) ARF (acute renal failure): Baseline cr 1.4-1.5 Cr on admission 1.8 Monitor with IVF (2) UTI (urinary tract infection): Noted on UA Cx pending started on amoxicillin, will continue PO WBC WNL, afebrile (3) Lower extremity pain: Noted for R LE TTP LE US pending TSH pending Mg, Phos pending K WNL Resolved in ED with ativan, hesitant to start this medication without further workup Appt with PCP for this on 03/21 at 10:30a (4) Hypercholesterolemia: Denies medication for this (5) HTN (hypertension): continue home meds Missed AM meds Monitor with HS metoprolol dosing (6) Impaired fasting glucose: Noted, monitor (7) Secondary hypothyroidism: Denies medication for this TSH pending (8) CKD (chronic kidney disease), stage III: Baseline cr 1.4-1.5 (9) COPD (chronic obstructive pulmonary disease): continue home meds (10) Hyperkalemia: States was told this recently K WNL on admission (11) DVT prophylaxis: SCDs History of Present Illness Primary Care Provider: Best Sow MD 84 y/o F c/o n/v/d. Pt state she woke this AM and took a shower. She had no issues with this other than R LE cramping that has been ongoing the last 2 weeks. She made breakfast and while she was eating, she had sudden onset of near syncope. She started having "severe" vomiting 5-6x and an episode of stool incontinence towards the end of this. She felt generally unwell after this and called 911. Pt denies fever, SOB, chest pain. She has had near syncope in the past, but never with v/d like this. No further bowel movements since the incontinence episode. Pt was given abx and IVF in the ED. She states she feels a tightness in her upper abd, more of a cramping, but feels much better at this time. Pt generally lives with her daughter, however she is on vacation to the [place] currently. Pt is not comfortable returning home alone at this time and would like to be monitored overnight. Pt has as an appt with PCP tomorrow for R LE cramping. This has been ongoing for the last 2 weeks. She cannot sleep due to it. No redness or swelling. No new medications, although she was told recently her K was elevated. She was seen by pulm earlier this week and referred to PCP for this issue. Pt was given ativan in the ED and states she felt her LE cramping relax. It was the first relief she has had for this since it started. Allergies Allergy/AdvReac Type Severity Reaction Status Date / Time latex Allergy Intermediate SEVERE Verified 03/20/20 12:21 ITCHING cephalexin Allergy Mild RASH Verified 03/20/20 12:21 Home Medications Home Medications Medication Instructions Recorded Confirmed Type aspirin 81 mg tablet,delayed 81 mg PO DAILY tab 07/10/19 03/20/20 History release albuterol sulfate 90 mcg/actuation 2 puffs INHALATION Q4H PRN #1 gm 10/02/19 03/20/20 History aerosol inhaler antiarthritic combination no.2 900 900 mg PO BID tab 10/02/19 03/20/20 History mg tablet calcium carbonate-vitamin D3 1,000 1 tab PO BID tab 10/02/19 03/20/20 History mg (2,500 mg)-800 unit tablet cholecalciferol (vitamin D3) 125 125 mcg PO DAILY tab 10/02/19 03/20/20 History mcg (5,000 unit) tablet clotrimazole-betamethasone 1 1 appln TOPICAL BID #60 gm 10/02/19 03/20/20 History %-0.05 % topical cream echinacea purpurea aerial 350 mg 350 mg PO DAILY cap 10/02/19 03/20/20 History capsule lactobacillus combination no.4 3 3,000 mmu cells PO DAILY 10/02/19 03/20/20 History billion cell capsule lutein 10 mg tablet 10 mg PO DAILY tab 10/02/19 03/20/20 History sodium chloride 0.65 % nasal spray 2 sprays INTRANASAL BID #1 ml 10/02/19 03/20/20 History aerosol diclofenac sodium 1 % topical gel 2 gm TOP QID #300 gm 12/31/19 03/20/20 Rx fluticasone propionate 50 1 - 2 sprays INTRANASAL DAILY 01/10/20 03/20/20 Rx mcg/actuation nasal #18.2 ml spray,suspension lisinopril 20 1 tab PO DAILY #90 tab 02/12/20 03/20/20 Rx mg-hydrochlorothiazide 12.5 mg tablet metoprolol tartrate 25 mg tablet 12.5 mg PO BID #90 tab 03/03/20 03/20/20 Rx umeclidinium 62.5 mcg-vilanterol 1 puffs INHALATION DAILY #60 ea 03/17/20 03/20/20 Rx 25 mcg/actuation powdr for inhalation amoxicillin 500 mg PO BID 7 Days #14 cap 03/20/20 Rx lorazepam [Ativan] 0.5 mg PO TID PRN #20 tab 03/20/20 Rx ondansetron 4 mg PO Q6H PRN #14 tab 03/20/20 Rx Past Med/Surg History Medical History Arthritis, multiple joint involvement (Chronic) Balance problems (Chronic) Bradycardia (Chronic) CKD (chronic kidney disease), stage III (Chronic) COPD (chronic obstructive pulmonary disease) (Chronic) Dyspnea on exertion (Chronic) HTN (hypertension) (Chronic) Hypercholesterolemia (Chronic) Impaired fasting glucose (Chronic) Nocturia (Chronic) Osteoporosis (Chronic) Secondary hypothyroidism (Chronic) Syncope (Inactive) Syncope and collapse (Inactive 05/15/14) Surgical History H/O: hysterectomy (Resolved) History of breast biopsy History of bunionectomy History of carpal tunnel surgery History of inguinal hernia repair History of myringotomy History of rotator cuff surgery Jul 2011--Dr. Whitten Hx of adenoidectomy (Resolved) Hx of tonsillectomy (Resolved) S/P appendectomy (Resolved) S/P cholecystectomy (Resolved) Family History Mother Alzheimer disease Family/Other No problems noted. 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 Smoking Status: Former smoker Tobacco Type: cigarettes ; Smoking End Date: 1995 ; Hx Alcohol Use: Yes Alcohol Intake Frequency: Rarely Alcohol Intake Frequency Comment: social Hx Substance Use: No Childhood Exposure to Second-Hand Smoke: Yes caffeine: Yes Dental Care, Regularly: No Physical Activity Frequency: 1-2 Times per Week Seatbelt Use: always Sunscreen Use: No Review of Systems Review of Systems: Pertinent positives and negatives reviewed in HPI--all others negative Physical Exam Constitutional: WD/WN, vitals as above Eyes: normal visual fuentes by confrontation and + anicteric sclerae Neck: normal visual inspection and trachea midline Respiratory: normal respiratory effort, lungs clear to auscultation Cardiovascular: Rate/Rhythm: regular rate and regular rhythm Gastrointestinal (Abdomen): Inspection/Auscultation: abdomen not distended Percussion/Palpation: abdomen soft; abdomen nontender Musculoskeletal: Head/Neck/Chest: normocephalic and head atraumatic negative for edema, peripheral pulses intact R LE with pain to palpation of calf. L is WNL. Skin: no rashes, warm and dry Neurologic: awake; not confused Speech / Cognition: normal speech Psychiatric: A+Ox3, euthymic affect Results & Data Results & Data ([facility]) Vital Signs (Past 12 Hours) Vital Signs Temp Pulse Pulse Resp BP BP Pulse Ox 03/20/20 18:32 67 18 174/76 H 95 03/20/20 17:30 70 18 157/80 H 95 03/20/20 16:30 68 18 178/68 H 95 03/20/20 16:00 59 L 18 175/69 H 96 03/20/20 14:00 59 L 18 176/70 H 97 03/20/20 12:31 57 L 20 175/79 H 98 03/20/20 11:35 36.9 C 55 L 24 166/71 H 97 ECG Rhythm: normal sinus Code Status & VTE Plan Code Status Full code VTE Prophylaxis Plan VTE Prophylaxis will be ordered: Yes PG Care Time/CCT Total # of Minutes Spent Total Time Spent with Patient: Total time spent is greater than 50% in coordination of care (as documented) at patient's floor/unit and/or counseling patient: Coding Level of Care Code 45721 OBS Care - Level 3 Diagnoses ARF (acute renal failure) N17.9 UTI (urinary tract infection) N30.00 Hematuria presence: without hematuria Urinary tract infection type: acute cystitis Lower extremity pain M79.606 Hypercholesterolemia E78.00 HTN (hypertension) I10 Impaired fasting glucose R73.01 Secondary hypothyroidism E03.8 CKD (chronic kidney disease), stage III N18.3 COPD (chronic obstructive pulmonary disease) J44.9 Hyperkalemia E87.5 DVT prophylaxis Z29.9 (1) UTI (urinary tract infection) Hematuria presence: without hematuria Urinary tract infection type: acute cystitis Qualified Code(s): N30.00 - Acute cystitis without hematuria
[2020-03-20] MEDS ORDERED: ALBUTEROL HFA 8 GM INHALER INH PRN (20:40)
[2020-03-20] MEDS ORDERED: ACETAMINOPHEN 325 MG TAB PO PRN (20:40)
[2020-03-20] MEDS ORDERED: MAGNESIUM HYDROXIDE SUSP 30 ML UDC PO PRN (20:40)
[2020-03-20] MEDS ORDERED: ONDANSETRON INJ 2 MG/ML 2 ML VIAL IV PRN (20:40)
[2020-03-20] MEDS ORDERED: ANTIARTHRITIC COMBINATION NO 2 900 MG PO SCH (21:00)
[2020-03-20] MEDS: SODIUM CHLORIDE 0.9% 1000ML 1,000 ML IV SCH (21:48)
[2020-03-20] MEDS: CALCIUM 600MG + VIT D 400 IU TAB PO SCH (21:48)
[2020-03-20] MEDS: AMOXICILLIN 500 MG CAP PO SCH (21:49)
[2020-03-20] MEDS: SODIUM CHLORIDE 0.65% NA SOLN 45 ML (OCEAN) SCH (21:50)
[2020-03-20] MEDS: DICLOFENAC SOD 1% GEL 100 GM TUBE EXT SCH (21:51)
[2020-03-20] MEDS: CLOTRIMAZOLE/BETAMETHASONE CR 15 GM TUBE EXT SCH (21:51)
[2020-03-20] MEDS: METOPROLOL TARTRATE 25 MG TAB PO SCH (21:52)
--- NOTE | 2020-03-20 22:26 | Electrocardiogram Report ---
Test Reason : Blood Pressure : / mmHG Vent. Rate : 061 BPM Atrial Rate : 061 BPM P-R Int : 208 ms QRS Dur : 094 ms QT Int : 444 ms P-R-T Axes : 019 -07 117 degrees QTc Int : 446 ms Poor data quality, interpretation may be adversely affected Normal sinus rhythm Cannot rule out Anterior infarct , age undetermined Nonspecific T wave abnormality Abnormal ECG When compared with ECG of 14-MAY-2014 23:39, Minimal criteria for Anterior infarct are now Present Nonspecific T wave abnormality no longer evident in Inferior leads Confirmed by Karthikeyan Long ([id number]) on 03/20/2020 10:26:25 PM Referred By: REFERRED SELF Confirmed By:Karthikeyan Long
--- NOTE | 2020-03-21 07:02 | Ultrasound Report ---
US venous doppler LE RT CLINICAL HISTORY: R LE pain/cramping COMPARISON STUDY: No previous studies for comparison. FINDINGS: Real-time and color flow Doppler imaging were performed. Flow was seen within the femoral, popliteal and calf veins with no intraluminal thrombus demonstrated. The patient has a history of gre ater saphenous vein removal.. There is a popliteal fossa cyst measuring 44 x 12 x 33 mm. IMPRESSION: 1. No evidence of right lower extremity DVT 2. Popliteal cyst ACT 112: Negative or not required by law. Electronically signed by: Ottoniel Villar M.D. 03/21/2020 7:01 AM
[2020-03-21] MEDS ORDERED: NON-FORMULARY MEDICATION (Lutein 10 MG) PO SCH (09:00)
[2020-03-21] MEDS ORDERED: ECHINACEA PURPUREA AERIAL PO SCH (09:00)
[2020-03-21] MEDS: UMECLIDINIUM/VILANTEROL 62.5/25MCG 7 PUFFS/INHALER INH SCH (09:23)
[2020-03-21] MEDS: FLUTICASONE PROPIONATE NA SPR 16 GM BTL SCH (09:24)
[2020-03-21] MEDS: CLOTRIMAZOLE/BETAMETHASONE CR 15 GM TUBE EXT SCH ×2 (09:26→21:33)
[2020-03-21] MEDS: SODIUM CHLORIDE 0.65% NA SOLN 45 ML (OCEAN) SCH ×2 (09:27→21:32)
[2020-03-21] MEDS: DICLOFENAC SOD 1% GEL 100 GM TUBE EXT SCH ×4 (09:28→21:33)
[2020-03-21] MEDS: ASPIRIN 81 MG ECTAB PO SCH (09:30)
[2020-03-21] MEDS: AMOXICILLIN 500 MG CAP PO SCH ×2 (09:30→21:31)
[2020-03-21] MEDS: METOPROLOL TARTRATE 25 MG TAB PO SCH ×2 (09:30→21:36)
[2020-03-21] MEDS: LISINOPRIL/HCTZ 20/12.5MG 1 TAB TAB PO SCH (09:30)
[2020-03-21] MEDS: CALCIUM 600MG + VIT D 400 IU TAB PO SCH ×2 (09:30→21:32)
[2020-03-21] MEDS: LACTOBACILLUS ACIDOPHILUS (FLORANEX) TAB PO SCH (09:30)
[2020-03-21] MEDS: CHOLECALCIFEROL 1,000 UNITS 25 MCG TAB PO SCH (09:30)
[2020-03-21] MEDS: SODIUM CHLORIDE 0.9% 1000ML 1,000 ML IV SCH (10:41)
[2020-03-21 11:34] LABS: BUN Creatinine Ratio 24.8 (10-20); Calcium 8.5 mg/dl (8.5-10.1); Creatinine Clr Calc Pharmacy 27.6 ml/min; Est GFR (African American) 34.2; Est GFR (Non-African American) 29.5; Magnesium 1.9 mg/dl (1.8-2.4); Potassium 4.3 mmol/L (3.5-5.1)
[2020-03-21 11:46] LABS: Phosphorus 2.8 mg/dl (2.5-4.9); Thyroid Stimulating Hormone 0.588 uIu/ml (0.300-4.500)
--- NOTE | 2020-03-21 14:05 | Hospitalist Progress Note ---
Date of Service March 21, 2020 Assessment & Plan (1) UTI (urinary tract infection): UA on admission showed WBCs, bacteria, leuk esterase, and nitrites. - Cx pending - Started on amoxicillin for prior E. coli sensitivity; continue PO (2) Left hand pain: Has left hand swelling and pain after forcing her middle finger back after it cramped. - Discussed with orthopedics today; concern for flexor tendon damage. - Getting hand x-rays initially; they will see her today and determine further work-up after exam. (3) ARF (acute renal failure): Baseline cr 1.4-1.5, eGFR ~30. - Cr. on admission 1.8; possibly mildly pre-renal from vomiting and diarrhea. - On IV fluids initially; Cr now down to 1.6. - Monitor (4) Lower extremity pain: Noted for R LE TTP. The history is unclear because it sometimes is in the legs, but [id number] also notes wandering, cramping pain. - RLE US was negative for DVT. - TSH, Mg, phos all normal. - X-ray of right tib/fib pending (5) HTN (hypertension): BP is 180/75 today. - Continue home lisinopril/HCTZ & beta-stacey - Monitor (6) Impaired fasting glucose: Noted on AM labs. Prior A1c was 5.6%, but that was in 2019. - Get A1c - Monitor (7) CKD (chronic kidney disease), stage III: Baseline cr 1.4-1.5. - As above (8) Secondary hypothyroidism: Denies medication for this. TSH was 0.59. - No needs (9) COPD (chronic obstructive pulmonary disease): No shortness of breath reported today. - Continue home meds (10) DVT prophylaxis: SCDs Admission and Anticipated Discharge Date Admission Date: March 20, 2020 Subjective No further nausea or vomiting today. Some slight diarrhea, but not too bad. Left hand still painful. Reports no fevers/chills, chest pain, shortness of breath, abdominal pain, nausea, or vomiting. Physical Exam Constitutional: WD/WN, vitals as above Eyes: EOM intact bilaterally; no conjunctival abnormality ENMT: external ear and nose normal, oropharynx normal Neck: trachea midline, no thyromegaly normal visual inspection Respiratory: normal respiratory effort, lungs clear to auscultation no respiratory distress Cardiovascular: RRR, no murmur, no edema Gastrointestinal (Abdomen): Inspection/Auscultation: abdomen normal to inspection; abdomen not distended Musculoskeletal: Extremities: + extremities abnormal to inspection (Swelling of left hand. Mildly tender spot in the right mcgrath.) Skin: no rashes, warm and dry Neurologic: moves all extremities and awake Psychiatric: Orientation: alert, oriented to person and cooperative Results & Data Results & Data ([facility]) Vital Signs (Past 12 Hours) Vital Signs Temp Pulse Pulse Resp BP BP Pulse Ox 03/21/20 12:39 36.4 C L 61 20 179/74 H 96 03/21/20 08:19 36.6 C 62 18 149/77 H 94 03/21/20 07:19 59 L 03/21/20 04:00 36.5 C 61 20 154/75 H 94 PG Care Time/CCT Total # of Minutes Spent Total Time Spent with Patient: Total time spent is greater than 50% in coordination of care (as documented) at patient's floor/unit and/or counseling patient: Coding Level of Care Code 66408 Subseq Hosp Care Lvl 3 Diagnoses UTI (urinary tract infection) N30.00 Hematuria presence: without hematuria Urinary tract infection type: acute cystitis Left hand pain M79.642 ARF (acute renal failure) N17.9 Lower extremity pain M79.606 HTN (hypertension) I10 Impaired fasting glucose R73.01 CKD (chronic kidney disease), stage III N18.3 Secondary hypothyroidism E03.8 COPD (chronic obstructive pulmonary disease) J44.9 DVT prophylaxis Z29.9 (1) UTI (urinary tract infection) Hematuria presence: without hematuria Urinary tract infection type: acute cystitis Qualified Code(s): N30.00 - Acute cystitis without hematuria
--- NOTE | 2020-03-21 14:10 | XRay Report ---
XR tibia fibula RT 2V CLINICAL HISTORY: Right leg pain COMPARISON STUDY: None. FINDINGS: No fracture or dislocation. Soft tissues are unremarkable. No radiopaque foreign bodies. Mo derate osteoarthritis within the knee. IMPRESSION: No fractures within the right lower leg. ACT 112: Negative or not required by law. Electronically signed by: Elmer Arizmendi M.D. 03/21/2020 2:09 PM
--- NOTE | 2020-03-21 14:12 | XRay Report ---
XR hand LT min 3V routine CLINICAL HISTORY: Left hand swelling COMPARISON: None. DISCUSSION: No acute fractures are visualized. There is chondrocalcinosis at the level of the wrist. There are erosive osteoarthritic changes involving the proximal distal interphalangeal joints. There is metacarpal phalangeal joint space narrowing with mild subluxations involving the second and third MCPs. Arthritic changes are also present the level the first carpal metacarpal joint. IMPRESSION: 1. No acute fractures 2. Moderately advanced erosive osteoarthritis ACT 112: Negative or not required by law. Electronically signed by: Ottoniel Villar M.D. 03/21/2020 2:10 PM
[2020-03-22] MEDS: CHOLECALCIFEROL 1,000 UNITS 25 MCG TAB PO SCH (07:54)
[2020-03-22] MEDS: LISINOPRIL/HCTZ 20/12.5MG 1 TAB TAB PO SCH (07:54)
[2020-03-22] MEDS: LACTOBACILLUS ACIDOPHILUS (FLORANEX) TAB PO SCH (07:54)
[2020-03-22] MEDS: ASPIRIN 81 MG ECTAB PO SCH (07:54)
[2020-03-22] MEDS: AMOXICILLIN 500 MG CAP PO SCH (07:56)
[2020-03-22] MEDS: UMECLIDINIUM/VILANTEROL 62.5/25MCG 7 PUFFS/INHALER INH SCH (07:56)
[2020-03-22] MEDS: METOPROLOL TARTRATE 25 MG TAB PO SCH (07:56)
[2020-03-22] MEDS: CALCIUM 600MG + VIT D 400 IU TAB PO SCH (07:56)
[2020-03-22] MEDS: FLUTICASONE PROPIONATE NA SPR 16 GM BTL SCH (07:57)
[2020-03-22] MEDS: SODIUM CHLORIDE 0.65% NA SOLN 45 ML (OCEAN) SCH (07:57)
[2020-03-22] MEDS: CLOTRIMAZOLE/BETAMETHASONE CR 15 GM TUBE EXT SCH (07:57)
[2020-03-22] MEDS: DICLOFENAC SOD 1% GEL 100 GM TUBE EXT SCH (07:58)
[2020-03-22 09:48] LABS: Estimated Average Glucose 114 mg/dl; Hemoglobin A1C 5.6 % (4.5-5.6)
[2020-03-22] MEDS ORDERED: LIDOCAINE 5% 1 PATCH TD SCH (10:15)
--- NOTE | 2020-03-22 10:35 | Orthopedic Consultation ---
Date of Consultation March 22, 2020 Assessment & Plan (1) Injury of extensor tendon of left hand: X-rays negative for fracture, extensive arthritis throughout the hand, suspect injury to the extensor tendon, recommend ice and elevation, splint immobilization and follow-up with hand specialist with [facility], [id number]. (2) Muscle cramp: (3) Leg pain, lateral: Atraumatic right lower lateral leg pain. Tenderness palpation over peroneal muscle belly, will order Lidoderm patch, recommend ice and elevation, will obtain lumbar spine x-rays, patient complaining of right-sided sciatica previously and intermittent numbness to her right lower extremity, lumbar radiculopathy on the differential, would consider Medrol Dosepak, PT OT pending x-rays. Thank you for the consultation. History of Present Illness Reason for Consultation: Left middle finger pain/right lower leg pain Attending Physician: Hemant Verde MD History of Present Illness Patient is an 84-year-old female who presents to [facility] secondary to acute onset of renal failure and near syncopal episode and nausea/vomiting. Also complaining of one-week history of left finger pain and several week history of right lower extremity pain. Acute atraumatic. Denies any injury reports possibly extending her finger when she felt sudden pain and swelling and noticed bruising to her left hand which has resolved over the last week. Denies any trauma to the right lower extremity reports worsening pain at night and cramping to her right lower extremity. Ultrasound was performed which was negative for DVT. Denies any numbness or tingling in her extremities. Denies F/C/N/V/SOB/CP. Allergies Allergy/AdvReac Type Severity Reaction Status Date / Time latex Allergy Intermediate SEVERE Verified 03/20/20 12:21 ITCHING cephalexin Allergy Mild RASH Verified 03/20/20 12:21 Home Medications Home Medications Medication Instructions Recorded Confirmed Type aspirin 81 mg tablet,delayed 81 mg PO DAILY tab 07/10/19 03/20/20 History release albuterol sulfate 90 mcg/actuation 2 puffs INHALATION Q4H PRN #1 gm 10/02/19 03/20/20 History aerosol inhaler antiarthritic combination no.2 900 900 mg PO BID tab 10/02/19 03/20/20 History mg tablet calcium carbonate-vitamin D3 1,000 1 tab PO BID tab 10/02/19 03/20/20 History mg (2,500 mg)-800 unit tablet cholecalciferol (vitamin D3) 125 125 mcg PO DAILY tab 10/02/19 03/20/20 History mcg (5,000 unit) tablet clotrimazole-betamethasone 1 1 appln TOPICAL BID #60 gm 10/02/19 03/20/20 History %-0.05 % topical cream echinacea purpurea aerial 350 mg 350 mg PO DAILY cap 10/02/19 03/20/20 History capsule lactobacillus combination no.4 3 3,000 mmu cells PO DAILY 10/02/19 03/20/20 History billion cell capsule lutein 10 mg tablet 10 mg PO DAILY tab 10/02/19 03/20/20 History sodium chloride 0.65 % nasal spray 2 sprays INTRANASAL BID #1 ml 10/02/19 03/20/20 History aerosol diclofenac sodium 1 % topical gel 2 gm TOP QID #300 gm 12/31/19 03/20/20 Rx fluticasone propionate 50 1 - 2 sprays INTRANASAL DAILY 01/10/20 03/20/20 Rx mcg/actuation nasal #18.2 ml spray,suspension lisinopril 20 1 tab PO DAILY #90 tab 02/12/20 03/20/20 Rx mg-hydrochlorothiazide 12.5 mg tablet metoprolol tartrate 25 mg tablet 12.5 mg PO BID #90 tab 03/03/20 03/20/20 Rx umeclidinium 62.5 mcg-vilanterol 1 puffs INHALATION DAILY #60 ea 03/17/20 03/20/20 Rx 25 mcg/actuation powdr for inhalation amoxicillin 500 mg PO TID #8 tab 03/21/20 Rx Patient History Medical History Arthritis, multiple joint involvement (Chronic) Balance problems (Chronic) Bradycardia (Chronic) CKD (chronic kidney disease), stage III (Chronic) COPD (chronic obstructive pulmonary disease) (Chronic) Dyspnea on exertion (Chronic) HTN (hypertension) (Chronic) Hypercholesterolemia (Chronic) Impaired fasting glucose (Chronic) Nocturia (Chronic) Osteoporosis (Chronic) Secondary hypothyroidism (Chronic) Syncope (Inactive) Syncope and collapse (Inactive 05/15/14) Surgical History H/O: hysterectomy (Resolved) History of breast biopsy History of bunionectomy History of carpal tunnel surgery History of inguinal hernia repair History of myringotomy History of rotator cuff surgery Jul 2011--Dr. Whitten Hx of adenoidectomy (Resolved) Hx of tonsillectomy (Resolved) S/P appendectomy (Resolved) S/P cholecystectomy (Resolved) Family History Mother Alzheimer disease Family/Other No problems noted. 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 Smoking Status: Never smoker Tobacco Type: cigarettes ; Smoking End Date: 1995 ; Hx Alcohol Use: No Hx Substance Use: No Childhood Exposure to Second-Hand Smoke: Yes caffeine: Yes Dental Care, Regularly: No Physical Activity Frequency: 1-2 Times per Week Seatbelt Use: always Sunscreen Use: No Review of Systems Review of Systems: All systems reviewed & are unremarkable except as noted in HPI & below Constitutional: as per Subjective / HPI Physical Exam Physical Exam: Left upper extremity is neurovascular sensory intact, +2 radial pulse, ulnar deviation of the MCP joints, tenderness to palpation dorsal aspect of the third MCP joint, loss of active extension of the third digit. No edema, erythema or injury to the skin. Compartments are soft and compressible. Capillary refill less than 2 seconds. RLE NVSI +EHL/FHL/TA/GS SILT grossly, +2 DP pulse, compartments soft and compressible, tenderness to palpation over lateral aspect of her right lower leg, no erythema or edema, skin intact no signs of trauma or visible infectious process. Constitutional: WD/WN, vitals as above Results & Data ([facility]) Vital Signs (Past 12 Hours) Vital Signs Temp Pulse Pulse Resp BP BP Pulse Ox 03/22/20 07:36 36.5 C 67 18 126/69 94 03/22/20 07:21 50 L 06/27/20 03:05 36.6 C 58 L 18 175/82 H 95 03/21/20 23:00 36.5 C 62 18 129/70 94 Diagnostic Findings XR hand LT min 3V routine CLINICAL HISTORY: Left hand swelling COMPARISON: None. DISCUSSION: No acute fractures are visualized. There is chondrocalcinosis at the level of the wrist. There are erosive osteoarthritic changes involving the proximal distal interphalangeal joints. There is metacarpal phalangeal joint space narrowing with mild subluxations involving the second and third MCPs. Ar thritic changes are also present the level the first carpal metacarpal joint. IMPRESSION: 1. No acute fractures 2. Moderately advanced erosive osteoarthritis XR tibia fibula RT 2V CLINICAL HISTORY: Right leg pain COMPARISON STUDY: None. FINDINGS: No fracture or dislocation. Soft tissues are unremarkable. No radiopaque foreign bodies. Moderate osteoarthritis within the knee. IMPRESSION: No fractures within the right lower leg.
--- NOTE | 2020-03-22 11:39 | XRay Report ---
XR lumbar spine min 4V routine HISTORY: Pain lumbar radiculopathy COMPARISON: None. FINDINGS: There is no fracture. Moderate degenerative disc changes throughout the entire lumbar regio n. Mild concavity superior endplate L5 consider old. Osteopenia. No evidence for subluxation. IMPRESSION: 1. Moderate generalized degenerative disc change. 2. Osteopenia. 3. No acute process. ACT 112: Negative or not required by law. The above report was generated using voice recognition software. It may contain grammatical, syntax or spelling errors. Electronically signed by: Petar Berry M.D. 03/22/2020 11:38 AM
--- NOTE | 2020-03-22 17:21 | Discharge Summary ---
Date of Service March 22, 2020 Admission HPI Per Admitting Provider 84 y/o F c/o n/v/d. Pt state she woke this AM and took a shower. She had no issues with this other than R LE cramping that has been ongoing the last 2 weeks. She made breakfast and while she was eating, she had sudden onset of near syncope. She started having "severe" vomiting 5-6x and an episode of stool incontinence towards the end of this. She felt generally unwell after this and called 911. Pt denies fever, SOB, chest pain. She has had near syncope in the past, but never with v/d like this. No further bowel movements since the incontinence episode. Pt was given abx and IVF in the ED. She states she feels a tightness in her upper abd, more of a cramping, but feels much better at this time. Pt generally lives with her daughter, however she is on vacation to the [place] currently. Pt is not comfortable returning home alone at this time and would like to be monitored overnight. Pt has as an appt with PCP tomorrow for R LE cramping. This has been ongoing for the last 2 weeks. She cannot sleep due to it. No redness or swelling. No new medications, although she was told recently her K was elevated. She was seen by pulm earlier this week and referred to PCP for this issue. Pt was given ativan in the ED and states she felt her LE cramping relax. It was the first relief she has had for this since it started. Principal Diagnosis UTI Likely left hand extensor tendon tear Possible lumbar radiculopathy vs. muscle body strain Discharge Exam Constitutional WD/WN, vitals as above Eyes EOM intact bilaterally; no conjunctival abnormality ENMT external ear and nose normal, oropharynx normal Neck trachea midline, no thyromegaly normal visual inspection Respiratory normal respiratory effort, lungs clear to auscultation no respiratory distress Cardiovascular RRR, no murmur, no edema Gastrointestinal (Abdomen) Inspection/Auscultation: abdomen normal to inspection; abdomen not distended Musculoskeletal Extremities: + extremities abnormal to inspection (Swelling of left hand. Mildly tender spot in the right mcgrath.) Skin no rashes, warm and dry Neurologic moves all extremities and awake Psychiatric Orientation: alert, oriented to person and cooperative Discharge Data Allergies Allergy/AdvReac Type Severity Reaction Status Date / Time latex Allergy Intermediate SEVERE Verified 03/20/20 12:21 ITCHING cephalexin Allergy Mild RASH Verified 03/20/20 12:21 Consultations 03/20/20 18:07 ED Decision to Admit Stat 03/21/20 13:04 Consult Orthopedic Surgery Routine Ordered Studies 03/20/20 20:40 US venous doppler LE RT Urgent Hospital Course (1) UTI (urinary tract infection): UA on admission showed WBCs, bacteria, leuk esterase, and nitrites. Presumed her symptoms of nausea and emesis and diarrhea stemmed from this. - Cx showed michele-sensitive E. coli - Discharged on amoxicillin x 3 more days. PCP f/u. (2) Left hand pain: Has left hand swelling and pain after forcing her middle finger back after it cramped. - Discussed with orthopedics today; presumed to be an extensor tendon tear. Splinted. Will see ortho-hand in the office. (3) Lower extremity pain: Noted for R LE TTP. The history is unclear because it sometimes is in the legs, but [id number] also notes wandering, cramping pain. - RLE US was negative for DVT. - TSH, Mg, phos all normal. - X-ray of right tib/fib normal. - Seen by orthopedics. Thought it might be a muscle belly strain vs. radiculopathy from a lumbar nerve impingement. Will try two things: 1) Topical relief with lidocaine patches, diclofenac gel, and icing it. 2) Low-dose gabapentin in the evenings. Can be titrated if this seems to help. 3) If neither help, consider ortho-spine referral, though [id number] (Alycia Williamson) in agreement with me that spinal surgery is a last resort. (4) ARF (acute renal failure): Baseline cr 1.4-1.5, eGFR ~30. - Cr. on admission 1.8; possibly mildly pre-renal from vomiting and diarrhea. - On IV fluids initially; Cr now down to 1.6. (5) HTN (hypertension): BP is 170/80 today. No symptoms of hypertensive urgency. - Continue home lisinopril/HCTZ & beta-stacey - PCP f/u (6) Impaired fasting glucose: Noted on AM labs. Prior A1c was 5.6%, but that was in 2019. - A1c was 5.6%. (7) CKD (chronic kidney disease), stage III: Baseline cr 1.4-1.5. - As above (8) Secondary hypothyroidism: Denies medication for this. TSH was 0.59. - No needs (9) COPD (chronic obstructive pulmonary disease): No shortness of breath reported today. - Continue home meds (10) DVT prophylaxis: SCDs Total Time Total Time Spent Total Time Spent (In Minutes): 35 Discharge Plan Discharge Items Patient Disposition: Home - Self-Care Reason For Visit: UTI Discharge Diagnosis: Urinary tract infection (also called bladder infection) Arthritis, possible lumbar stenosis, possible extensor tendon damage Condition on Discharge: Good Activity: Resume your previous activity Non-emergency contact: Primary Care Provider Call non-emergency contact if: your symptoms worsen and your temperature is above 101 Follow-up/Referrals: Best Sow MD [Primary Care Provider] - Adam Peng M.D. [Physician] - (Please call [facility] for follow up of your left hand issues and with Dr. Damon in regards to your back.) Diet: Heart Healthy Addtl Attending Provider Instructions: You were admitted with a bladder infection after having an episode of weakness, vomiting, and almost passing out. We did routine testing and found that you have evidence of bacteria in your bladder (also called a "UTI"). You were started on antibiotics for this, and we will continue this course for 3 days total which is a typical UTI duration. We did an ultrasound of your right leg as it was painful. There were no blood clots in your leg which is great news! The ultrasound shows a popliteal (Coe's) cyst which is a simple collection of fluid. This can cause some pain, but usually not at the site where you are having your pain. Dr. Dillon from [facility] saw you and felt that the leg pain may be due to a strained muscle or possibly some radicular pain from your back. We are trying a variety of things to help with the pain. 1) We are trying some topical agents to help with the pain if it is from a muscle strain in the right, lateral calf. These include lidocaine patches. You can also put the Voltaran (diclofenac) gel you already have on this area. Try to alternate these. In addition, using an ice pack could also help. Wrap a plastic bag of ice in a towel, and rest it on the area that hurts most. If it does not improve in 1-2 weeks, please follow up with the orthopedic doctors. 2) We are starting you on a low-dose medication called gabapentin. Please only use this at night. This medication helps with radicular pain (nerve pain), and if the pain is coming from your back as Dr. Dillon believes, it will hopefully help. It may also help with your cramping pain which is also thinks could be related to some neuropathy. For now, please only take this medication at night t o make sure it does not affect you adversely. Please see Dr. Sow in the next 1-2 weeks to be sure you are doing well and to coordinate your care. Pending Studies at Discharge: Yes Studies:: Urine culture Stand-Alone Forms: My [facility] [employer], Smoking Cessation Medications and DC Order Prescriptions: New amoxicillin 500 mg tablet 500 mg PO TID Qty: 8 RF: 0 gabapentin 100 mg capsule 100 mg PO HS Qty: 30 RF: 0 diclofenac sodium [Voltaren] 1 % gel 2 gm TOP QID Qty: 300 RF: 1 Continued fluticasone propionate 50 mcg/actuation spray,suspension 1 - 2 sprays intranasal DAILY Qty: 18.2 RF: 5 lisinopril-hydrochlorothiazide 20-12.5 mg tablet 1 tab PO DAILY Qty: 90 RF: 3 metoprolol tartrate 25 mg tablet 12.5 mg PO BID Qty: 90 RF: 3 umeclidinium-vilanterol [Anoro Ellipta] 62.5-25 mcg/actuation blister with device 1 puffs inhalation DAILY Qty: 60 RF: 5 calcium carbonate-vitamin D3 1,000 mg(2,500 mg)-800 unit tablet 1 tab PO BID RF: 0 glucosamine-chondroitin 900 mg tablet 900 mg PO BID RF: 0 Probiotic 3 billion cell capsule 3,000 mmu cells PO DAILY RF: 0 aspirin 81 mg tablet,delayed release (DR/EC) 81 mg PO DAILY RF: 0 clotrimazole-betamethasone 1-0.05 % cream 1 appln topical BID Qty: 60 RF: 0 echinacea purpurea aerial 350 mg capsule 350 mg PO DAILY RF: 0 lutein 10 mg tablet 10 mg PO DAILY RF: 0 sodium chloride 0.65 % aerosol,spray 2 sprays intranasal BID Qty: 1 RF: 0 albuterol sulfate 90 mcg/actuation HFA aerosol inhaler 2 puffs inhalation Q4H PRN (Reason: Shortness Of Breath) Qty: 1 RF: 0 cholecalciferol (vitamin D3) 125 mcg (5,000 unit) tablet 125 mcg PO DAILY RF: 0 Discharge Orders: Discharge Order (Routine); Ordered 03/22/20 Ordered By: Hemant Verde Admission Data Admit Date/Time: 03/20/20 19:26 Attending Provider: Hemant Verde Admit Provider: Moni Lowe Primary Care Provider: Best Sow Other Providers: Hemant Verde ; Husam Dillon Other Interventions: Discharge Summary Assessment (RN) Last Done: 03/22/20 13:57 DC Date/Time DO NOT enter until pt leaves facility: 03/22/20 14:43 Coding Level of Care Code 98787 OBS Care - Discharge Diagnoses UTI (urinary tract infection) N30.00 Hematuria presence: without hematuria Urinary tract infection type: acute cystitis Left hand pain M79.642 Lower extremity pain M79.606 ARF (acute renal failure) N17.9 HTN (hypertension) I10 Impaired fasting glucose R73.01 CKD (chronic kidney disease), stage III N18.3 Secondary hypothyroidism E03.8 COPD (chronic obstructive pulmonary disease) J44.9 DVT prophylaxis Z29.9
== END 2020-03-22 14:43 | disposition home or self-care (01) ==
LOC: ED 11:22 → 2N 11:22 → SUATTDRO 19:26 → 2N 19:56

== ENCOUNTER 2021-05-31 17:38 | Inpatient (IN) ==
[2021-05-31] MEDS ORDERED: CEFEPIME 2,000 MG/20 ML VIAL IV STA (18:44)
--- NOTE | 2021-05-31 18:54 | History & Physical Report ---
Date of Service May 31, 2021 Assessment & Plan (1) Gram-negative bacteremia: Plan: IV Cefepime Follow up blood cultures (2) Right arm cellulitis: Plan: Elevate limb Antibiotics as above Consult orthopedics (3) CKD (chronic kidney disease), stage III: Plan: Cr mildly elevated from baseline. Monitor with BMP from AM labs after IV fluids overnight Continue lisinopril for now but hold if worsening Cr in AM (4) HTN (hypertension): Plan: Continue lisinopril 10mg PO daily (5) Osteoporosis: Plan: Continue cholecalciferol supplementation (6) COPD (chronic obstructive pulmonary disease): Plan: Continue maintenance inhalers Plan: VTE Prophylaxis - low risk, SCDs Diet - regular Disposition - admit to med/surg as non-septic appearing Admission and Anticipated Discharge Date Admission Date: May 31, 2021 History of Present Illness Chief Complaint: Positive blood cultures Primary Care Provider: Best Sow MD Gayle Perkins is an 86 year old female who presents to the ER after her previous blood cultures are positive for Gram negative bacilli. She reports have pain in her right hand at the bottom of her thumb for the past 1.5 weeks. No trauma. Yesterday it suddenly became much more painful, swollen, warm and erythematous. She came to the ER last night and was diagnosed with cellulitis and given a dose of clindamycin and prescribed this to take at home. She reports her pain and swelling are worse than last night but mainly returned today as a call back due to positive blood cultures. She denies any other infective symptoms such as nasal congestion, sinus pain, shortness of breath, cough, chest pain, abdominal pain, diarrhea, flank pain or dysuria. In the ER WBC improved from 11.53 to 10.92. She was prescribed a dose of IV cefepime. She was referred to medicine for admission and ongoing management of bacteremia. Allergies Allergy/AdvReac Type Severity Reaction Status Date / Time latex Allergy Intermediate SEVERE Verified 05/31/21 19:12 ITCHING cephalexin Allergy Mild RASH Verified 05/31/21 19:12 Home Medications Medication Instructions Recorded Confirmed Type cholecalciferol (vitamin D3) 125 125 mcg PO DAILY tab 10/02/19 05/31/21 History mcg (5,000 unit) tablet aspirin 81 mg tablet,delayed 81 mg PO [id number] tab 04/03/20 05/31/21 History release diclofenac sodium 1 % topical gel See Rx Instructions .ROUTE 10/02/20 05/31/21 Rx .COMPLEX #300 g nystatin 100,000 unit/gram topical 1 applic TOPICAL DAILY PRN 12/23/20 05/31/21 History cream fluocinonide 0.05 % topical cream 1 applic TOPICAL DAILY g 01/19/21 05/31/21 History triamcinolone acetonide 0.1 % 1 applic TOPICAL UD 01/19/21 05/31/21 History topical cream glucosamine 500 2 cap PO DAILY cap 02/04/21 05/31/21 History nr-ejeuyhhor-uazbelcz comp 400 mg-D3 667 unit-C-Mn cap gabapentin 100 mg capsule 200 mg PO HS #60 cap 04/02/21 05/31/21 Rx fluticasone propionate 50 1 - 2 spray INTRANASAL DAILY #18.2 04/03/21 05/31/21 Rx mcg/actuation nasal ml spray,suspension lisinopril 20 mg tablet 10 mg PO DAILY #45 tab 04/08/21 05/31/21 Rx albuterol sulfate 90 mcg/actuation 2 puff INHALATION Q4H PRN #1 g 04/10/21 05/31/21 History aerosol inhaler umeclidinium 62.5 mcg-vilanterol 1 ea INHALATION DAILY 04/29/21 05/31/21 History 25 mcg/actuation powdr for inhalation (Anoro Ellipta) vitamins A,C,Y-udqf-fzbokt 14,320 1 cap PO BID 05/12/21 05/31/21 History unit-226 mg-200 unit capsule (PreserVision AREDS) clindamycin HCl 150 mg capsule 150 mg PO Q6H 7 Days #28 cap 05/30/21 05/31/21 Rx Past Med/Surg History Medical History ARF (acute renal failure) Arthritis, multiple joint involvement Balance problems Bradycardia CKD (chronic kidney disease), stage III COPD (chronic obstructive pulmonary disease) Dyspnea on exertion HTN (hypertension) Hypercholesterolemia Impaired fasting glucose Nocturia Osteoporosis Secondary hypothyroidism Syncope Syncope and collapse (05/15/14) Syncope and collapse UTI (urinary tract infection) Surgical History H/O: hysterectomy History of breast biopsy History of bunionectomy History of carpal tunnel surgery History of inguinal hernia repair History of myringotomy History of rotator cuff surgery Jul 2011--Dr. Whitten Hx of adenoidectomy Hx of tonsillectomy S/P appendectomy S/P cholecystectomy Family History Mother Alzheimer disease Family/Other No problems noted. Father Emphysema, unspecified Grandfather (Maternal) Colorectal cancer Uncle Prostate cancer Denies family history of Ovarian cancer Coronary heart disease Heart disease Myocardial infarction Breast cancer Social History Smoking Status: Former smoker Tobacco Type: Cigarettes Age Started Using Tobacco: 23; Age Quit Using Tobacco: 61; Number of Years Since Quit: 30; Second Hand Exposure: No; Do You Dip or Chew Tobacco: No; Tobacco Cessation Education Requested by Patient: No Hx Alcohol Use: Yes Alcohol type: wine Alcohol Intake Frequency Comment: social Hx Substance Use: No Preferred Language: Urdu Communication Ability: Effective Visual Impairment: Limited Hearing Ability: Use of Hearing Aid Fruit Washer Required: No Beliefs That Will Affect Care: None marital status: Current Living Situation: Alone Current Living Situation Comment: independent living current occupational 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[employer] How many Children do You have: 3 Other Information That Helps Us Care for You: No Feels Safe at Home: Yes Safety Concerns: Feels Safe At This Time Childhood Exposure to Second-Hand Smoke: Yes caffeine: Yes Dental Care, Regularly: No Physical Activity Frequency: Does not Exercise Seatbelt Use: always Sunscreen Use: No Assistive Devices: Cane, Glasses and Hearing Aid - Bilateral Review of Systems Review of Systems: All systems reviewed & are unremarkable except as noted in HPI & below Physical Exam Constitutional: WD/WN, vitals as above Eyes: + anicteric sclerae; normal pupil size Neck: normal visual inspection Respiratory: normal respiratory effort, lungs clear to auscultation Cardiovascular: RRR, no murmur, no edema Gastrointestinal (Abdomen): normal bowel sounds, soft, nontender, no hepatosplenomegaly Musculoskeletal: no cyanosis or clubbing, extremities motor strength 5/5 Skin: + erythema (warmth and swelling R mid forearm to 1st IPJ, no open wound) Neurologic: moves all extremities and awake; not confused Psychiatric: A+Ox3, euthymic affect Results & Data Results & Data ([facility]) Vital Signs (Past 12 Hours) Vital Signs Temp Pulse Resp BP Pulse Ox 05/31/21 17:39 36.8 C 80 18 139/64 93 Diagnostic Findings XR hand RT min 3V routine CLINICAL HISTORY: pain/swelling COMPARISON: None. DISCUSSION: No definite acute fracture dislocation seen. Osseous structures are demineralized which limits evaluation. Deformity of the fifth and first metacarpal bones could represent sequela from prior trauma. No blastic or lytic lesions are seen. Extensive degenerative changes within the radiocarpal, first and second carpometacarpal, all distal and mid interphalangeal joints as well as second and third metacarpophalangeal joints with multiple osteophytes and areas of periarticular calcifications are seen representing extensive degenerative process. No erosive lesions are seen. Calcifications within TFCC region are seen. Diffuse soft tissue edema is demonstrated. IMPRESSION: Extensive degenerative changes and possible sequela from prior trauma as detailed above. Medications Administered ER Medications Given: Cefepime IV 2g ECG Indication: other (bacteremia) Rate (beats per minute): 72 Findings: + nonspecific-ST abn (Lateral) Comparison ECG Date: from (May 30, 2021) Change: no significant change Code Status & VTE Plan Code Status Full VTE Prophylaxis Plan VTE Prophylaxis will be ordered: Yes Reason for no VTE drug order: Treatment not indicated PG Care Time/CCT Total # of Minutes Spent Total Time Spent with Patient: Total time spent is greater than 50% in coordination of care (as documented) at patient's floor/unit and/or counseling patient: Coding Level of Care Code 99408 Initial Inpt Care Lvl 2 Diagnoses Right arm cellulitis L03.113 Osteoporosis M81.0 HTN (hypertension) I10 CKD (chronic kidney disease), stage III N18.3 COPD (chronic obstructive pulmonary disease) J44.9 Gram-negative bacteremia R78.81
--- NOTE | 2021-05-31 18:54 | Emergency Department Note ---
Impression & Plan Bacteremia, Cellulitis, Positive blood culture, Leukocytosis ED Provider Note NAME: DMITRY RODRIGUEZ AGE: 86 SEX: F : 1935 ARRIVES VIA: Walk-In INFORMANT: [Patient] ED PROVIDER(S): [Aneudy Ríos MD] CHIEF COMPLAINT: Abnormal labs HISTORY OF PRESENT ILLNESS: The patient is an 86-year-old female who presents to the ED after a phone call from this hospital for a positive blood cultures. Her blood cultures from yesterday grew gram-negative bacilli. She had presented with a right hand and arm cellulitis. She was placed on clindamycin. The patient has had symptoms of erythema to the right hand, wrist and distal forearm for about 1-1/2 weeks. Yesterday, it became quite painful. She is fatigued but she states this is not that uncommon at her age. She has not noticed a fever. There has been no vomiting, no diarrhea. She states that her skin is thin and she oftentimes has open areas on her forearms. She points to a healing area on the right proximal forearm. The patient had been discharged on clindamycin, this will not cover gram- negative bacilli. REVIEW OF SYSTEMS: See HPI for pertinent positives and negatives. A total of ten systems were reviewed and were otherwise negative. PMHx/PSHx: See Below SOCIAL HISTORY: See Below. PHYSICAL EXAM: GENERAL: Patient is in no acute distress. HEENT: No acute trauma, normocephalic atraumatic, mucous membranes moist, no nasal congestion, no scleral icterus. NECK: No stridor, no adenopathy, no meningismus, trachea is midline. LUNGS: Clear to auscultation bilaterally, no wheeze, no rhonchi, breath sounds equal. HEART: Without murmurs gallops or rubs, regular rate and rhythm. ABDOMEN: Soft, nontender, bowel sounds positive, no hernias, no peritonitis. EXTREMITIES: No cyanosis. The patient does have erythema, warmth and tenderness involving the right thumb, right radial hand and wrist and right radial forearm. No drainage. No pain to move the joints of the fingers, thumb or wrist. NEUROLOGIC: Oriented x 3, no acute motor or sensory deficits, no focal weakness. SKIN: No jaundice, no diaphoresis. DIFFERENTIAL DIAGNOSIS: Sepsis, bacteremia, UTI, pneumonia, metabolic abnormality, electrolyte abnormalities, cardiac sources, cellulitis, bacteremia, intracerebral event, toxicologic etiology, neurologic event, as well as other pathologies. EMERGENCY DEPARTMENT COURSE/PROCEDURES: ECG: Indication was possible sepsis. The ECG shows a normal sinus rhythm with a rate of 72. There is some T wave inversion in the lateral leads. There is no ST elevation, no PVCs. The QTc is 444. Compared to an ECG from 30 May 2021, there is no significant change. Continuous Cardiac Monitoring: An order was placed for continuous cardiac monitoring. The monitor shows a rate of 80 with normal sinus rhythm. Critical Care Note: I have personally spent 39 minutes of critical care time in the direct management of this patient. This includes bedside care, interpretation of diagnostic studies, and testing, discussion with consultants, patient, and family members, and other required patient management activities. This 39 minutes is in excess of all separately billable procedures. MEDICAL DECISION MAKING: There is a mild leukocytosis which would be consistent with infection. The patient does have an anemia. The anemia is baseline looking back at previous testing. There is a normal platelet count. Creatinine is somewhat elevated co nsistent with some renal insufficiency/dehydration. Creatinine values are similar to previous values. Lactic acid level is not elevated making severe sepsis less likely. Magnesium somewhat low at 1.7. No concerning liver enzyme elevation. Covid testing returned negative. Looking at the patient's results from yesterday, her blood cultures did grow gram-negative bacilli. She is on clindamycin which will not cover gram-negative organisms. The patient has a right hand cellulitis. This has led to bacteremia. Hospitalization is warranted. She was given IV cefepime, she received oral magnesium. I did speak with the patient about her findings, she understands our concerns. I did speak with the onsite case manager. The on-call hospitalist was consulted. Past Med/Surg History Medical History ARF (acute renal failure) Arthritis, multiple joint involvement Balance problems Bradycardia CKD (chronic kidney disease), stage III COPD (chronic obstructive pulmonary disease) Dyspnea on exertion HTN (hypertension) Hypercholesterolemia Impaired fasting glucose Nocturia Osteoporosis Secondary hypothyroidism Syncope Syncope and collapse (05/15/14) Syncope and collapse UTI (urinary tract infection) Surgical History H/O: hysterectomy History of breast biopsy History of bunionectomy History of carpal tunnel surgery History of inguinal hernia repair History of myringotomy History of rotator cuff surgery Jul 2011--Dr. Whitten Hx of adenoidectomy Hx of tonsillectomy S/P appendectomy S/P cholecystectomy Family History Mother Alzheimer disease Family/Other No problems noted. Father Emphysema, unspecified Grandfather (Maternal) Colorectal cancer Uncle Prostate cancer Denies family history of Ovarian cancer Coronary heart disease Heart disease Myocardial infarction Breast cancer Social History Smoking Status: Never smoker Tobacco Type: Cigarettes Age Started Using Tobacco: 23; Age Quit Using Tobacco: 61; Number of Years Since Quit: 30; Second Hand Exposure: No; Hx Alcohol Use: No Hx Substance Use: No Preferred Language: Citizen Of [place] Communication Ability: Effective Visual Impairment: Limited Hearing Ability: Use of Hearing Aid Bulb Brander Required: No Beliefs That Will Affect Care: None marital status: Current Living Situation: Family Current Living Situation Comment: dtr current occupational 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[employer] How many Children do You have: 3 Feels Safe at Home: Yes Childhood Exposure to Second-Hand Smoke: Yes caffeine: Yes Dental Care, Regularly: No Physical Activity Frequency: Does not Exercise Seatbelt Use: always Sunscreen Use: No Assistive Devices: Glasses and Hearing Aid - Bilateral Allergies Allergies Allergy/AdvReac Type Severity Reaction Status Date / Time latex Allergy Intermediate SEVERE Verified 05/31/21 19:12 ITCHING cephalexin Allergy Mild RASH Verified 05/31/21 19:12 Home Meds Home Medications Medication Instructions Recorded Confirmed cholecalciferol (vitamin D3) 125 125 mcg PO DAILY tab 10/02/19 05/31/21 mcg (5,000 unit) tablet aspirin 81 mg tablet,delayed 81 mg PO 3XWK tab 04/03/20 05/31/21 release nystatin 100,000 unit/gram topical 1 applic TOPICAL DAILY PRN 12/23/20 05/31/21 cream fluocinonide 0.05 % topical cream 1 applic TOPICAL DAILY g 01/19/21 05/31/21 triamcinolone acetonide 0.1 % 1 applic TOPICAL UD 01/19/21 05/31/21 topical cream glucosamine 500 2 cap PO DAILY cap 02/04/21 05/31/21 xz-ksaaqmjjh-tlvdvgup comp 400 mg-D3 667 unit-C-Mn cap albuterol sulfate 90 mcg/actuation 2 puff INHALATION Q4H PRN #1 g 04/10/21 05/31/21 aerosol inhaler umeclidinium 62.5 mcg-vilanterol 1 ea INHALATION DAILY 04/29/21 05/31/21 25 mcg/actuation powdr for inhalation (Anoro Ellipta) vitamins A,C,B-phmt-fwrmvq 14,320 1 cap PO BID 05/12/21 05/31/21 unit-226 mg-200 unit capsule (PreserVision AREDS) Previous Rx's Medication Instructions Recorded diclofenac sodium 1 % topical gel See Rx Instructions .ROUTE 10/02/20 .COMPLEX #300 g gabapentin 100 mg capsule 200 mg PO HS #60 cap 04/02/21 fluticasone propionate 50 1 - 2 spray INTRANASAL DAILY #18.2 04/03/21 mcg/actuation nasal ml spray,suspension lisinopril 20 mg tablet 10 mg PO DAILY #45 tab 04/08/21 clindamycin HCl 150 mg capsule 150 mg PO Q6H 7 Days #28 cap 05/30/21 Results & Data (ED) Vital Signs Vital Signs - 24 hr 05/31/21 17:39 Temperature 36.8 C Temperature Source Temporal Artery Scan Pulse Rate 80 Respiratory Rate 18 Respiratory Effort / Characteristics Non-Labored Respiratory Depth Normal Blood Pressure 139/64 Blood Pressure Mean 89 Pulse Oximetry 93 Oxygen Delivery Method Room Air Sepsis Recent Fever Within 48 Hours No Sepsis New/Unexplained Change in Mental Status No Sepsis Action Taken by Nursing No Action Required Home Medications Current Medication List: was personally reviewed by me Laboratory Data Attestation: I reviewed the patient's lab results. Result diagrams: 05/31/21 19:16 05/31/21 19:16 Lab Results 05/31/21 05/31/21 05/31/21 Range/Units 19:16 19:16 19:16 WBC 10.92 H (4.8-10.8) K/uL RBC 3.44 L (4.2-5.4) M/uL Hgb 10.7 L (12.0-16.0) g/dL Hct 34.4 L (37-47) % MCV 100.0 (80-100) fL MCH 31.1 (25-34) pg MCHC 31.1 L (32-36) g/dL RDW Std Deviation 49.1 H (36.4-46.3) fL RDW Coeff of Stiven 13.5 (11.5-14.5) % Plt Count 240 (130-400) K/uL MPV 9.8 (7.4-10.4) fL Immature Gran % (Auto) 0.6 % Neut % (Auto) 73.3 % Lymph % (Auto) 15.7 % [place] % (Auto) 9.1 % Eos % (Auto) 1.1 % Baso % (Auto) 0.2 % Neut # (Auto) 8.01 H (1.4-6.5) K/uL Lymph # (Auto) 1.71 (1.2-3.4) K/uL [place] # (Auto) 0.99 H (0.11-0.59) K/uL Eos # (Auto) 0.12 (0-0.5) K/uL Baso # (Auto) 0.02 (0-0.2) K/uL Immature Gran # (Auto) 0.07 H (0.00-0.02) K/uL Sodium 138 (136-145) mmol/L Potassium 4.6 (3.5-5.1) mmol/L Chloride 104 (98-107) mmol/L Carbon Dioxide 24 (21-32) mmol/L Anion Gap 10.0 (3-11) BUN 33 H (7-18) mg/dl Creatinine 1.78 H D (0.6-1.2) mg/dl Est Cr Clr Drug Dosing 21.1 ml/min Est GFR ( Amer) 29.2 ml/min Est GFR (Non-Af Amer) 25.2 ml/min BUN/Creatinine Ratio 18.3 (10-20) Glucose 108 H (70-99) mg/dl Lactate (0.4-2.0) mmol/L Calcium 8.6 (8.5-10.1) mg/dl Magnesium 1.7 L (1.8-2.4) mg/dl Total Bilirubin 0.5 (0.2-1) mg/dl AST 20 (15-37) U/L ALT 15 (12-78) U/L Alkaline Phosphatase 81 (45-117) U/L Total Protein 6.8 (6.4-8.2) gm/dl Albumin 2.9 L (3.4-5.0) gm/dl Globulin 3.9 (2.5-4.0) gm/dl Albumin/Globulin Ratio 0.7 L (0.9-2) Procalcitonin 0.10 (0-0.5) ng/ml COVID-19 Eval Order SARS-CoV-2 (PCR) (Negative) 05/31/21 05/31/21 05/31/21 Range/Units 19:22 19:50 19:50 WBC (4.8-10.8) K/uL RBC (4.2-5.4) M/uL Hgb (12.0-16.0) g/dL Hct (37-47) % MCV (80-100) fL MCH (25-34) pg MCHC (32-36) g/dL RDW Std Deviation (36.4-46.3) fL RDW Coeff of Stiven (11.5-14.5) % Plt Count (130-400) K/uL MPV (7.4-10.4) fL Immature Gran % (Auto) % Neut % (Auto) % Lymph % (Auto) % [place] % (Auto) % Eos % (Auto) % Baso % (Auto) % Neut # (Auto) (1.4-6.5) K/uL Lymph # (Auto) (1.2-3.4) K/uL [place] # (Auto) (0.11-0.59) K/uL Eos # (Auto) (0-0.5) K/uL Baso # (Auto) (0-0.2) K/uL Immature Gran # (Auto) (0.00-0.02) K/uL Sodium (136-145) mmol/L Potassium (3.5-5.1) mmol/L Chloride (98-107) mmol/L Carbon Dioxide (21-32) mmol/L Anion Gap (3-11) BUN (7-18) mg/dl Creatinine (0.6-1.2) mg/dl Est Cr Clr Drug Dosing ml/min Est GFR ( Amer) ml/min Est GFR (Non-Af Amer) ml/min BUN/Creatinine Ratio (10-20) Glucose (70-99) mg/dl Lactate 1.8 (0.4-2.0) mmol/L Calcium (8.5-10.1) mg/dl Magnesium (1.8-2.4) mg/dl Total Bilirubin (0.2-1) mg/dl AST (15-37) U/L ALT (12-78) U/L Alkaline Phosphatase (45-117) U/L Total Protein (6.4-8.2) gm/dl Albumin (3.4-5.0) gm/dl Globulin (2.5-4.0) gm/dl Albumin/Globulin Ratio (0.9-2) Procalcitonin (0-0.5) ng/ml COVID-19 Eval Order Covid19 at [facility] SARS-CoV-2 (PCR) NEGATIVE (Negative) Administered Medications Discontinued Medications Cefepime HCl (Maxipime) 2,000 mg in 20 mls @ 5 mls/min IV NOW STA; Protocol Stop: 05/31/21 18:47 Last Admin: 05/31/21 19:38 Dose: 5 mls/min Documented by: [id number] Magnesium Oxide (Magnesium Oxide 400 Mg Tab) 400 mg PO ONE STA Stop: 05/31/21 20:01 Last Admin: 05/31/21 20:34 Dose: 400 mg Documented by: [id number] Discharge Plan Visit Data Chief Complaint: Referred by Doctor Stated Complaint: IV ANTIBIOTIC - TOLD TO COME IN FOR ADMIT ED Provider: Aneudy Ríos Discharge Problem: Bacteremia, Cellulitis, Positive blood culture, Leukocytosis Patient Disposition: Admitted As Inpatient Condition: Fair Forms Stand Alone Forms: My [facility] Prescriptions Prescriptions: No Action diclofenac sodium 1 % gel See Rx Instructions .ROUTE .COMPLEX Qty: 300 RF: 1 fluocinonide 0.05 % cream 1 applic topical DAILY RF: 0 triamcinolone acetonide 0.1 % cream 1 applic topical UD RF: 0 gabapentin 100 mg capsule 200 mg PO HS Qty: 60 RF: 5 fluticasone propionate 50 mcg/actuation spray,suspension 1 - 2 spray intranasal DAILY Qty: 18.2 RF: 5 lisinopril 20 mg tablet 10 mg PO DAILY Qty: 45 RF: 3 cholecalciferol (vitamin D3) 125 mcg (5,000 unit) tablet 125 mcg PO DAILY RF: 0 aspirin 81 mg tablet,delayed release (DR/EC) 81 mg PO 3XWK RF: 0 albuterol sulfate 90 mcg/actuation HFA aerosol inhaler 2 puff inhalation Q4H PRN (Reason: Shortness Of Breath) Qty: 1 RF: 0 vooy-cuxhov-bnpiprwc-D3-C-Mn 500-400-667 mg-mg-unit capsule 2 cap PO DAILY RF: 0 nystatin 100,000 unit/gram cream 1 applic topical DAILY PRN (Reason: fungal) RF: 0 PreserVision AREDS 14,[id number] ncqw-gp-[id number] capsule 1 cap PO BID RF: 0 Anoro Ellipta 62.5-25 mcg/actuation blister with device 1 ea inhalation DAILY RF: 0 clindamycin HCl 150 mg capsule 150 mg PO Q6H 7 Days Qty: 28 RF: 0 Referrals Referrals: Best Sow MD [Primary Care Provider] -
[2021-05-31 19:33] LABS: Basophils # (auto) 0.02 K/uL (0-0.2); Basophils % (auto) 0.2 %; Eosinophils # (auto) 0.12 K/uL (0-0.5); Eosinophils % (auto) 1.1 %; Hematocrit (blood only) 34.4 % (37-47); Hemoglobin 10.7 g/dL (12.0-16.0); Immature Granulocytes # (auto) 0.07 K/uL (0.00-0.02); Immature Granulocytes % (auto) 0.6 %; Lymphocytes # (auto) 1.71 K/uL (1.2-3.4); Lymphocytes % (auto) 15.7 %; Mean Corpuscular Hemoglobin 31.1 pg (25-34); Mean Corpuscular Hgb Conc 31.1 g/dL (32-36); Mean Platelet Volume 9.8 fL (7.4-10.4); Monocytes # (auto) 0.99 K/uL (0.11-0.59); Monocytes % (auto) 9.1 %; Neutrophils # (auto) 8.01 K/uL (1.4-6.5); Neutrophils % (auto) 73.3 %; Platelet Count 240 K/uL (130-400); RDW Coefficient of Variation 13.5 % (11.5-14.5); RDW Standard Deviation 49.1 fL (36.4-46.3); Red Blood Count 3.44 M/uL (4.2-5.4); White Blood Count 10.92 K/uL (4.8-10.8)
[2021-05-31 19:50] LABS: Albumin Level 2.9 gm/dl (3.4-5.0); BUN Creatinine Ratio 18.3 (10-20); Calcium 8.6 mg/dl (8.5-10.1); Creatinine Clr Calc Pharmacy 21.1 ml/min; Est GFR (African American) 29.2 ml/min; Est GFR (Non-African American) 25.2 ml/min; Magnesium 1.7 mg/dl (1.8-2.4); Potassium 4.6 mmol/L (3.5-5.1)
[2021-05-31 19:53] LABS: Albumin Globulin Ratio 0.7 (0.9-2); Bilirubin,Total 0.5 mg/dl (0.2-1); Globulin 3.9 gm/dl (2.5-4.0); Total Protein 6.8 gm/dl (6.4-8.2)
[2021-05-31] MEDS ORDERED: MAGNESIUM OXIDE 400 MG TAB PO STA ×2 (20:00→20:03)
[2021-05-31] MEDS ORDERED: CEFEPIME CONSULT ACTIVE PRN (22:14)
[2021-05-31] MEDS ORDERED: DICLOFENAC SOD 1% GEL 100 GM TUBE EXT PRN (22:14)
[2021-05-31] MEDS: ACETAMINOPHEN 325 MG TAB PO PRN (23:00)
[2021-05-31] MEDS: GABAPENTIN 100 MG CAP PO SCH (23:00)
[2021-05-31] MEDS: LACTATED RINGER'S 1,000 ML IV SCH (23:10)
[2021-06-01 06:51] LABS: Appearance Urine Clear (Clear); Bacteria Urine Automated Negative (Negative); Bilirubin Urine Negative (Negative); Blood Urine Negative (Negative); Color Urine Yellow; Epithelial Cell Urine Auto >30 /lpf (0-5); Glucose Urine UA Negative (Negative); Ketones Urine Trace (Negative); Leukocyte Esterase Urine 1+ (Negative); Nitrite Urine Negative (Negative); Protein Urine Negative (Negative); RBC Urine Automated 0-4 /hpf (0-4); Specific Gravity Urine 1.016 (1.000-1.030); Urobilinogen Urine Negative (Negative)
[2021-06-01 07:11] LABS: Basophils # (auto) 0.03 K/uL (0-0.2); Basophils % (auto) 0.4 %; Eosinophils # (auto) 0.25 K/uL (0-0.5); Hematocrit (blood only) 31.7 % (37-47); Hemoglobin 9.8 g/dL (12.0-16.0); Immature Granulocytes # (auto) 0.04 K/uL (0.00-0.02); Immature Granulocytes % (auto) 0.5 %; Lymphocytes # (auto) 1.62 K/uL (1.2-3.4); Lymphocytes % (auto) 19.5 %; Mean Corpuscular Hemoglobin 31.2 pg (25-34); Mean Corpuscular Hgb Conc 30.9 g/dL (32-36); Mean Platelet Volume 9.8 fL (7.4-10.4); Monocytes % (auto) 10.8 %; Neutrophils # (auto) 5.46 K/uL (1.4-6.5); Neutrophils % (auto) 65.8 %; Platelet Count 211 K/uL (130-400); RDW Coefficient of Variation 13.6 % (11.5-14.5); RDW Standard Deviation 50.1 fL (36.4-46.3); Red Blood Count 3.14 M/uL (4.2-5.4)
[2021-06-01 07:26] LABS: BUN Creatinine Ratio 20.4 (10-20); Calcium 8.1 mg/dl (8.5-10.1); Est GFR (African American) 33.7 ml/min; Est GFR (Non-African American) 29.1 ml/min; Potassium 4.6 mmol/L (3.5-5.1)
[2021-06-01] MEDS: lisinopril 10 MG TAB PO SCH (08:12)
[2021-06-01] MEDS: CEROVITE ADV FORMULA TAB PO SCH (08:12)
[2021-06-01] MEDS: ASPIRIN 81 MG ECTAB PO SCH (08:12)
[2021-06-01] MEDS: FLUTICASONE PROPIONATE NA SPR 16 GM BTL NAE SCH (08:12)
[2021-06-01] MEDS: UMECLIDINIUM/VILANTEROL 62.5/25MCG 7 PUFFS/INHALER INH SCH (08:12)
[2021-06-01] MEDS: CHOLECALCIFEROL 1,000 UNITS 25 MCG TAB PO SCH (08:12)
[2021-06-01] MEDS ORDERED: GLUC CHONDR COLLAGEN D3 C MN PO SCH (09:00)
--- NOTE | 2021-06-01 10:07 | Electrocardiogram Report ---
Test Reason : Blood Pressure : / mmHG Vent. Rate : 072 BPM Atrial Rate : 072 BPM P-R Int : 184 ms QRS Dur : 096 ms QT Int : 406 ms P-R-T Axes : 033 -13 109 degrees QTc Int : 444 ms Normal sinus rhythm Nonspecific ST and T wave abnormality Lateral leads Abnormal ECG When compared with ECG of 30-MAY-2021 21:47, No significant change was found Confirmed by Yusef Rhodes ([id number]) on 06/01/2021 10:06:45 AM Referred By: REFERRED SELF Confirmed By:Yusef Rhodes
[2021-06-01] MEDS ORDERED: LIDOCAINE 1% LOCAL 20 ML VIAL INFIL ONE (10:43)
[2021-06-01] MEDS ORDERED: MAGNESIUM SULFATE / D5W 1 GM/100 ML BAG IV ONE (11:00)
--- NOTE | 2021-06-01 11:46 | Orthopedic Consultation ---
Date of Consultation June 01, 2021 Assessment & Plan (1) Right arm cellulitis: Continue IV antibiotics N.p.o. Pain control with IV medication Keep splint in place that was placed on the patient's right thumb Appreciate medicine service following patient See Dr. Burnett procedure note for specifics of aspiration Fluid cultures pending Conservative management versus irrigation debridement will be pending the results of the fluid culture. History of Present Illness Reason for Consultation: Right hand/thumb cellulitis Requesting Physician: Dr. Best Burnett Attending Physician: Lyle Singleton History of Present Illness This 86-year-old female seen today in consultation for right hand/thumb cellulitis. Patient states that the swelling and redness has been ongoing for the past week and a half, however on Tuesday evening it became severe so she went to the emergency department. She was discharged, but on Tuesday morning she received a call from the emergency department stating that she had "bacteria in her blood." They asked her to come back in and she was admitted for the cellulitis and placed on IV cefepime. Patient states that she has severe pain near the base of the right thumb with significant swelling. She denies fever, chills, sweats, lethargy, numbness or tingling, chest pain or shortness of breath. She also denies nausea, vomiting or diarrhea. She is not sure if she bumped the thumb on something. But she denies any known specific injury, insect bite or history of gout. Allergies Allergy/AdvReac Type Severity Reaction Status Date / Time latex Allergy Intermediate SEVERE Verified 05/31/21 19:12 ITCHING cephalexin Allergy Mild RASH Verified 05/31/21 19:12 Home Medications Medication Instructions Recorded Confirmed Type cholecalciferol (vitamin D3) 125 125 mcg PO DAILY tab 10/02/19 05/31/21 History mcg (5,000 unit) tablet aspirin 81 mg tablet,delayed 81 mg PO 3XWK tab 04/03/20 05/31/21 History release diclofenac sodium 1 % topical gel See Rx Instructions .ROUTE 10/02/20 05/31/21 Rx .COMPLEX #300 g nystatin 100,000 unit/gram topical 1 applic TOPICAL DAILY PRN 12/23/20 05/31/21 History cream fluocinonide 0.05 % topical cream 1 applic TOPICAL DAILY g 01/19/21 05/31/21 History triamcinolone acetonide 0.1 % 1 applic TOPICAL UD 01/19/21 05/31/21 History topical cream glucosamine 500 2 cap PO DAILY cap 02/04/21 05/31/[address]-ixynizisw-jowzsxlb comp 400 mg-D3 667 unit-C-Mn cap gabapentin 100 mg capsule 200 mg PO HS #60 cap 04/02/21 05/31/21 Rx fluticasone propionate 50 1 - 2 spray INTRANASAL DAILY #18.2 04/03/21 05/31/21 Rx mcg/actuation nasal ml spray,suspension lisinopril 20 mg tablet 10 mg PO DAILY #45 tab 04/08/21 05/31/21 Rx albuterol sulfate 90 mcg/actuation 2 puff INHALATION Q4H PRN #1 g 04/10/21 05/31/21 History aerosol inhaler umeclidinium 62.5 mcg-vilanterol 1 ea INHALATION DAILY 04/29/21 05/31/21 History 25 mcg/actuation powdr for inhalation (Anoro Ellipta) vitamins A,C,M-qdef-hazgus 14,320 1 cap PO BID 05/12/21 05/31/21 History unit-226 mg-200 unit capsule (PreserVision AREDS) clindamycin HCl 150 mg capsule 150 mg PO Q6H 7 Days #28 cap 05/30/21 05/31/21 Rx Patient History Medical History ARF (acute renal failure) Arthritis, multiple joint involvement Balance problems Bradycardia CKD (chronic kidney disease), stage III COPD (chronic obstructive pulmonary disease) Dyspnea on exertion HTN (hypertension) Hypercholesterolemia Impaired fasting glucose Nocturia Osteoporosis Secondary hypothyroidism Syncope Syncope and collapse (05/15/14) Syncope and collapse UTI (urinary tract infection) Surgical History H/O: hysterectomy History of breast biopsy History of bunionectomy History of carpal tunnel surgery History of inguinal hernia repair History of myringotomy History of rotator cuff surgery Jul 2011--Dr. Whitten Hx of adenoidectomy Hx of tonsillectomy S/P appendectomy S/P cholecystectomy Family History Mother Alzheimer disease Family/Other No problems noted. Father Emphysema, unspecified Grandfather (Maternal) Colorectal cancer Uncle Prostate cancer Denies family history of Ovarian cancer Coronary heart disease Heart disease Myocardial infarction Breast cancer Social History Smoking Status: Former smoker Tobacco Type: Cigarettes Age Started Using Tobacco: 23; Age Quit Using Tobacco: 61; Number of Years Since Quit: 30; Second Hand Exposure: No; Do You Dip or Chew Tobacco: No; Tobacco Cessation Education Requested by Patient: No Hx Alcohol Use: Yes Alcohol type: wine Alcohol Intake Frequency Comment: social Hx Substance Use: No Preferred Language: Georgian Communication Ability: Effective Visual Impairment: Limited Hearing Ability: Use of Hearing Aid Addiction Counselor Required: No Beliefs That Will Affect Care: None marital status: Current Living Situation: Alone Current Living Situation Comment: independent living current occupational 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[employer] How many Children do You have: 3 Other Information That Helps Us Care for You: No Feels Safe at Home: Yes Safety Concerns: Feels Safe At This Time Childhood Exposure to Second-Hand Smoke: Yes caffeine: Yes Dental Care, Regularly: No Physical Activity Frequency: Does not Exercise Seatbelt Use: always Sunscreen Use: No Assistive Devices: Denture - Upper, Denture - Lower and Glasses Review of Systems Review of Systems: All systems reviewed & are unremarkable except as noted in HPI & below Physical Exam Physical Exam: Right hand: Patient has significant edema over the thenar eminence and dorsal surface of the first metacarpal. There is erythema, warmth and exquisite tenderness to palpation. There are no open skin areas or drainage appreciated there is some slight fluctuance however. Patient experiences referred pain needed CMC joint with resisted extension at the IP or MCP joint of the thumb. She also experiences pain with resisted flexion. She has difficulty resisting distraction or pincer grasp. She is unable to make a fist. There is notable edema tracking to the MCP joints of digits 2 through 5. She also experiences tenderness to palpation over the second and third metacarpal. Otherwise she is neurovascularly intact. Peripheral pulses 2+. Capillary fill is less than 2 seconds. Results & Data ([facility]) Vital Signs (Past 12 Hours) Vital Signs Temp Pulse Resp BP Pulse Ox 06/01/21 06:58 36.5 C 67 14 133/67 92 Laboratory Results 06/01/21 06/01/21 06/01/21 Range/Units Unknown Unknown 06:45 WBC (4.8-10.8) K/uL RBC (4.2-5.4) M/uL Hgb (12.0-16.0) g/dL Hct (37-47) % MCV (80-100) fL MCH (25-34) pg MCHC (32-36) g/dL RDW Std Deviation (36.4-46.3) fL RDW Coeff of Stiven (11.5-14.5) % Plt Count (130-400) K/uL MPV (7.4-10.4) fL Immature Gran % (Auto) % Neut % (Auto) % Lymph % (Auto) % [place] % (Auto) % Eos % (Auto) % Baso % (Auto) % Neut # (Auto) (1.4-6.5) K/uL Lymph # (Auto) (1.2-3.4) K/uL [place] # (Auto) (0.11-0.59) K/uL Eos # (Auto) (0-0.5) K/uL Baso # (Auto) (0-0.2) K/uL Immature Gran # (Auto) (0.00-0.02) K/uL ESR Sodium (136-145) mmol/L Potassium (3.5-5.1) mmol/L Chloride (98-107) mmol/L Carbon Dioxide (21-32) mmol/L Anion Gap (3-11) BUN (7-18) mg/dl Creatinine (0.6-1.2) mg/dl Est Cr Clr Drug Dosing ml/min Est GFR ( Amer) ml/min Est GFR (Non-Af Amer) ml/min BUN/Creatinine Ratio (10-20) Glucose (70-99) mg/dl Lactate (0.4-2.0) mmol/L Calcium (8.5-10.1) mg/dl Magnesium (1.8-2.4) mg/dl Total Bilirubin (0.2-1) mg/dl AST (15-37) U/L ALT (12-78) U/L Alkaline Phosphatase (45-117) U/L C-Reactive Protein Pending Total Protein (6.4-8.2) gm/dl Albumin (3.4-5.0) gm/dl Globulin (2.5-4.0) gm/dl Albumin/Globulin Ratio (0.9-2) Procalcitonin (0-0.5) ng/ml Urine Color Urine Appearance (Clear) Urine pH (4.5-7.5) Ur Specific [place] (1.000-1.030) Urine Protein (Negative) Urine Glucose (UA) (Negative) Urine Ketones (Negative) Urine Blood (Negative) Urine Nitrite (Negative) Urine Bilirubin (Negative) Urine Urobilinogen (Negative) Ur Leukocyte Esterase (Negative) Urine WBC (Auto) (0-5) /hpf Urine RBC (Auto) (0-4) /hpf U Hyaline Cast (Auto) (0-5) /lpf U Epithel Cells (Auto) (0-5) /lpf Urine Bacteria (Auto) (Negative) Fluid Comment Synovial Source Pending Synovial Color Pending Synovial Appearance Pending Synovial WBC Pending Synovial RBC Pending Synovial Crystals Pending COVID-19 Eval Order SARS-CoV-2 (PCR) (Negative) 06/01/21 06/01/21 06/01/21 Range/Units 06:45 06:45 06:45 WBC 8.30 (4.8-10.8) K/uL RBC 3.14 L (4.2-5.4) M/uL Hgb 9.8 L (12.0-16.0) g/dL Hct 31.7 L (37-47) % MCV 101.0 H (80-100) fL MCH 31.2 (25-34) pg MCHC 30.9 L (32-36) g/dL RDW Std Deviation 50.1 H (36.4-46.3) fL RDW Coeff of Stiven 13.6 (11.5-14.5) % Plt Count 211 (130-400) K/uL MPV 9.8 (7.4-10.4) fL Immature Gran % (Auto) 0.5 % Neut % (Auto) 65.8 % Lymph % (Auto) 19.5 % [place] % (Auto) 10.8 % Eos % (Auto) 3.0 % Baso % (Auto) 0.4 % Neut # (Auto) 5.46 (1.4-6.5) K/uL Lymph # (Auto) 1.62 (1.2-3.4) K/uL [place] # (Auto) 0.90 H (0.11-0.59) K/uL Eos # (Auto) 0.25 (0-0.5) K/uL Baso # (Auto) 0.03 (0-0.2) K/uL Immature Gran # (Auto) 0.04 H (0.00-0.02) K/uL ESR Pending Sodium 139 (136-145) mmol/L Potassium 4.6 (3.5-5.1) mmol/L Chloride 107 (98-107) mmol/L Carbon Dioxide 24 (21-32) mmol/L Anion Gap 8.0 (3-11) BUN 32 H (7-18) mg/dl Creatinine 1.58 H (0.6-1.2) mg/dl Est Cr Clr Drug Dosing 24.0 ml/min Est GFR ( Amer) 33.7 ml/min Est GFR (Non-Af Amer) 29.1 ml/min BUN/Creatinine Ratio 20.4 H (10-20) Glucose 91 (70-99) mg/dl Lactate (0.4-2.0) mmol/L Calcium 8.1 L (8.5-10.1) mg/dl Magnesium (1.8-2.4) mg/dl Total Bilirubin (0.2-1) mg/dl AST (15-37) U/L ALT (12-78) U/L Alkaline Phosphatase (45-117) U/L C-Reactive Protein Total Protein (6.4-8.2) gm/dl Albumin (3.4-5.0) gm/dl Globulin (2.5-4.0) gm/dl Albumin/Globulin Ratio (0.9-2) Procalcitonin (0-0.5) ng/ml Urine Color Urine Appearance (Clear) Urine pH (4.5-7.5) Ur Specific [place] (1.000-1.030) Urine Protein (Negative) Urine Glucose (UA) (Negative) Urine Ketones (Negative) Urine Blood (Negative) Urine Nitrite (Negative) Urine Bilirubin (Negative) Urine Urobilinogen (Negative) Ur Leukocyte Esterase (Negative) Urine WBC (Auto) (0-5) /hpf Urine RBC (Auto) (0-4) /hpf U Hyaline Cast (Auto) (0-5) /lpf U Epithel Cells (Auto) (0-5) /lpf Urine Bacteria (Auto) (Negative) Fluid Comment Synovial Source Synovial Color Synovial Appearance Synovial WBC Synovial RBC Synovial Crystals COVID-19 Eval Order SARS-CoV-2 (PCR) (Negative) 06/01/21 05/31/21 05/31/21 Range/Units 05:35 19:50 19:50 WBC (4.8-10.8) K/uL RBC (4.2-5.4) M/uL Hgb (12.0-16.0) g/dL Hct (37-47) % MCV (80-100) fL MCH (25-34) pg MCHC (32-36) g/dL RDW Std Deviation (36.4-46.3) fL RDW Coeff of Stiven (11.5-14.5) % Plt Count (130-400) K/uL MPV (7.4-10.4) fL Immature Gran % (Auto) % Neut % (Auto) % Lymph % (Auto) % [place] % (Auto) % Eos % (Auto) % Baso % (Auto) % Neut # (Auto) (1.4-6.5) K/uL Lymph # (Auto) (1.2-3.4) K/uL [place] # (Auto) (0.11-0.59) K/uL Eos # (Auto) (0-0.5) K/uL Baso # (Auto) (0-0.2) K/uL Immature Gran # (Auto) (0.00-0.02) K/uL ESR Sodium (136-145) mmol/L Potassium (3.5-5.1) mmol/L Chloride (98-107) mmol/L Carbon Dioxide (21-32) mmol/L Anion Gap (3-11) BUN (7-18) mg/dl Creatinine (0.6-1.2) mg/dl Est Cr Clr Drug Dosing ml/min Est GFR ( Amer) ml/min Est GFR (Non-Af Amer) ml/min BUN/Creatinine Ratio (10-20) Glucose (70-99) mg/dl Lactate (0.4-2.0) mmol/L Calcium (8.5-10.1) mg/dl Magnesium (1.8-2.4) mg/dl Total Bilirubin (0.2-1) mg/dl AST (15-37) U/L ALT (12-78) U/L Alkaline Phosphatase (45-117) U/L C-Reactive Protein Total Protein (6.4-8.2) gm/dl Albumin (3.4-5.0) gm/dl Globulin (2.5-4.0) gm/dl Albumin/Globulin Ratio (0.9-2) Procalcitonin (0-0.5) ng/ml Urine Color Yellow Urine Appearance Clear (Clear) Urine pH 5.0 (4.5-7.5) Ur Specific [place] 1.016 (1.000-1.030) Urine Protein Negative (Negative) Urine Glucose (UA) Negative (Negative) Urine Ketones Trace H (Negative) Urine Blood Negative (Negative) Urine Nitrite Negative (Negative) Urine Bilirubin Negative (Negative) Urine Urobilinogen Negative (Negative) Ur Leukocyte Esterase 1+ H (Negative) Urine WBC (Auto) 10-30 H (0-5) /hpf Urine RBC (Auto) 0-4 (0-4) /hpf U Hyaline Cast (Auto) 1-5 (0-5) /lpf U Epithel Cells (Auto) >30 H (0-5) /lpf Urine Bacteria (Auto) Negative (Negative) Fluid Comment Synovial Source Synovial Color Synovial Appearance Synovial WBC Synovial RBC Synovial Crystals COVID-19 Eval Order Covid19 at [facility] SARS-CoV-2 (PCR) NEGATIVE (Negative) 05/31/21 05/31/21 05/31/21 Range/Units 19:22 19:16 19:16 WBC (4.8-10.8) K/uL RBC (4.2-5.4) M/uL Hgb (12.0-16.0) g/dL Hct (37-47) % MCV (80-100) fL MCH (25-34) pg MCHC (32-36) g/dL RDW Std Deviation (36.4-46.3) fL RDW Coeff of Stiven (11.5-14.5) % Plt Count (130-400) K/uL MPV (7.4-10.4) fL Immature Gran % (Auto) % Neut % (Auto) % Lymph % (Auto) % [place] % (Auto) % Eos % (Auto) % Baso % (Auto) % Neut # (Auto) (1.4-6.5) K/uL Lymph # (Auto) (1.2-3.4) K/uL [place] # (Auto) (0.11-0.59) K/uL Eos # (Auto) (0-0.5) K/uL Baso # (Auto) (0-0.2) K/uL Immature Gran # (Auto) (0.00-0.02) K/uL ESR Sodium 138 (136-145) mmol/L Potassium 4.6 (3.5-5.1) mmol/L Chloride 104 (98-107) mmol/L Carbon Dioxide 24 (21-32) mmol/L Anion Gap 10.0 (3-11) BUN 33 H (7-18) mg/dl Creatinine 1.78 H D (0.6-1.2) mg/dl Est Cr Clr Drug Dosing 21.1 ml/min Est GFR ( Amer) 29.2 ml/min Est GFR (Non-Af Amer) 25.2 ml/min BUN/Creatinine Ratio 18.3 (10-20) Glucose 108 H (70-99) mg/dl Lactate 1.8 (0.4-2.0) mmol/L Calcium 8.6 (8.5-10.1) mg/dl Magnesium 1.7 L (1.8-2.4) mg/dl Total Bilirubin 0.5 (0.2-1) mg/dl AST 20 (15-37) U/L ALT 15 (12-78) U/L Alkaline Phosphatase 81 (45-117) U/L C-Reactive Protein Total Protein 6.8 (6.4-8.2) gm/dl Albumin 2.9 L (3.4-5.0) gm/dl Globulin 3.9 (2.5-4.0) gm/dl Albumin/Globulin Ratio 0.7 L (0.9-2) Procalcitonin 0.10 (0-0.5) ng/ml Urine Color Urine Appearance (Clear) Urine pH (4.5-7.5) Ur Specific [place] (1.000-1.030) Urine Protein (Negative) Urine Glucose (UA) (Negative) Urine Ketones (Negative) Urine Blood (Negative) Urine Nitrite (Negative) Urine Bilirubin (Negative) Urine Urobilinogen (Negative) Ur Leukocyte Esterase (Negative) Urine WBC (Auto) (0-5) /hpf Urine RBC (Auto) (0-4) /hpf U Hyaline Cast (Auto) (0-5) /lpf U Epithel Cells (Auto) (0-5) /lpf Urine Bacteria (Auto) (Negative) Fluid Comment Synovial Source Synovial Color Synovial Appearance Synovial WBC Synovial RBC Synovial Crystals COVID-19 Eval Order SARS-CoV-2 (PCR) (Negative) 05/31/21 Range/Units 19:16 WBC 10.92 H (4.8-10.8) K/uL RBC 3.44 L (4.2-5.4) M/uL Hgb 10.7 L (12.0-16.0) g/dL Hct 34.4 L (37-47) % MCV 100.0 (80-100) fL MCH 31.1 (25-34) pg MCHC 31.1 L (32-36) g/dL RDW Std Deviation 49.1 H (36.4-46.3) fL RDW Coeff of Stiven 13.5 (11.5-14.5) % Plt Count 240 (130-400) K/uL MPV 9.8 (7.4-10.4) fL Immature Gran % (Auto) 0.6 % Neut % (Auto) 73.3 % Lymph % (Auto) 15.7 % [place] % (Auto) 9.1 % Eos % (Auto) 1.1 % Baso % (Auto) 0.2 % Neut # (Auto) 8.01 H (1.4-6.5) K/uL Lymph # (Auto) 1.71 (1.2-3.4) K/uL [place] # (Auto) 0.99 H (0.11-0.59) K/uL Eos # (Auto) 0.12 (0-0.5) K/uL Baso # (Auto) 0.02 (0-0.2) K/uL Immature Gran # (Auto) 0.07 H (0.00-0.02) K/uL ESR Sodium (136-145) mmol/L Potassium (3.5-5.1) mmol/L Chloride (98-107) mmol/L Carbon Dioxide (21-32) mmol/L Anion Gap (3-11) BUN (7-18) mg/dl Creatinine (0.6-1.2) mg/dl Est Cr Clr Drug Dosing ml/min Est GFR ( Amer) ml/min Est GFR (Non-Af Amer) ml/min BUN/Creatinine Ratio (10-20) Glucose (70-99) mg/dl Lactate (0.4-2.0) mmol/L Calcium (8.5-10.1) mg/dl Magnesium (1.8-2.4) mg/dl Total Bilirubin (0.2-1) mg/dl AST (15-37) U/L ALT (12-78) U/L Alkaline Phosphatase (45-117) U/L C-Reactive Protein Total Protein (6.4-8.2) gm/dl Albumin (3.4-5.0) gm/dl Globulin (2.5-4.0) gm/dl Albumin/Globulin Ratio (0.9-2) Procalcitonin (0-0.5) ng/ml Urine Color Urine Appearance (Clear) Urine pH (4.5-7.5) Ur Specific [place] (1.000-1.030) Urine Protein (Negative) Urine Glucose (UA) (Negative) Urine Ketones (Negative) Urine Blood (Negative) Urine Nitrite (Negative) Urine Bilirubin (Negative) Urine Urobilinogen (Negative) Ur Leukocyte Esterase (Negative) Urine WBC (Auto) (0-5) /hpf Urine RBC (Auto) (0-4) /hpf U Hyaline Cast (Auto) (0-5) /lpf U Epithel Cells (Auto) (0-5) /lpf Urine Bacteria (Auto) (Negative) Fluid Comment Synovial Source Synovial Color Synovial Appearance Synovial WBC Synovial RBC Synovial Crystals COVID-19 Eval Order SARS-CoV-2 (PCR) (Negative)
--- NOTE | 2021-06-01 11:55 | Consultation Report ---
DATE OF SERVICE: 06/01/2021 The patient is seen in conjunction with Laura Benoit. For further details, refer to his dictation. He and I saw and evaluated together. I am in agreement with the plan. Gayle is 86. Since 05/30, she has had pain in her right thumb. She came to the ER and was diagnosed with cellulitis on that day. She was given IV antibiotics followed by oral antibiotics and was sent home. Blood cultures were obtained and because of the positive blood cultures, she was contacted to come back to the Emergency Room and was admitted. Her thumb is getting worse. She does have a histo ry of urinary tract infections and a urinalysis is pending. Her UAs previously had grown out E. coli and her blood cultures are growing gram-negative rods. She denies any significant urinary symptoms at this time. There is no injury to the right thumb and she has no history of gout. She is afebrile. Her vital signs are stable. Her white count was 11.5 on the and then 10.9 yest erday. Today, it is 8.3. Hemoglobin 10, hematocrit 32, platelets 211. Her PRP is noted. She has m ild chronic renal insufficiency. Sed rate and C-reactive protein are pending. On examination, there is swelling and redness centered over the base of the right thumb. She can fle x and extend the interphalangeal joint and abduct the thumb against resistance. She has a mild loss of composite finger extension and has about 50% of composite digital flexion. The thumb IP and MCP j oints are nontender. The wrist joint is not tender. She does have some tenderness over the base of the second and third carpometacarpal joint. The metacarpophalangeal joints and interphalangeal joint s of the right hand are nontender. She has good wrist range of motion and finger movement without si gnificant pain. There is significant tenderness to palpation over the basilar thumb joint. I do not detect any fluid accumulation or abscess within the webspace or thenar eminence. Any movement of th e right thumb carpometacarpal joint elicits severe pain. Her sensation is intact and her radial puls e is 1+ with capillary refill less than 2 seconds. Verbal informed consent was obtained along with a preprocedural timeout. Laura Benoit under my direc tion performed a superficial radial nerve block and a carpal tunnel block with 5 mL of 1% plain lidoc patt. Subsequent to that, I aspirated approximately half to three-quarters of a milliliter of yellow suellen material from the right thumb carpometacarpal joint. A dressing was applied followed by a thumb spica splint for comfort. The specimen will be sent for a stat Gram stain, culture, crystal analysis, cell count with different ial if possible. We will make her n.p.o. There is a possibility that she could have a septic arthritis of the CMC kenia nt. Other possibilities would include Lyme disease, which is not very likely and gout. We will make her n.p.o. We will await results such as the Gram stain. If she does have infection, then surgical irrigation and debridement was discussed and recommended. In the meantime, we will ask her medical service to initiate some treatment for gout just in case this is present. She is on intravenous anti biotics, cefepime, which should be adequate for now until we get further information back. She does have some further blood cultures and urinalysis pending. Job ID: [id number]
[2021-06-01 13:14] LABS: Appearance Synovial Fluid CLOUDY; Color Synovial Fluid AMBER; Mononuclear WBC Synovial 9.5 %; Polynuclear WBC Synovial 90.5 %; RBC Synovial Fluid (A) 57000 /uL; Source Synovial Fluid FINGER; WBC Synovial Fluid (A) 80557 /ul (0-200)
--- NOTE | 2021-06-01 14:14 | Anesthesiology Consultation ---
Date of Service June 01, 2021 Assessment & Plan Chart Review Chart Review: Acceptable Risk for Surgery and Patient NOT seen in Pre Admission Testing Consults Requested none ASA ASA4 Proposed Anesthesia Anesthesia Type: General History Height/Weight Height: 5 ft Weight: 83.1 kg Allergies Allergy/AdvReac Type Severity Reaction Status Date / Time latex Allergy Intermediate SEVERE Verified 05/31/21 19:12 ITCHING cephalexin Allergy Mild RASH Verified 05/31/21 19:12 Medications Home Medications Medication Instructions Recorded Confirmed Last Taken cholecalciferol (vitamin D3) 125 125 mcg PO DAILY tab 10/02/19 05/31/21 05/31/21 mcg (5,000 unit) tablet aspirin 81 mg tablet,delayed 81 mg PO 3XWK tab 04/03/20 05/31/21 05/29/21 release diclofenac sodium 1 % topical gel See Rx Instructions .ROUTE 10/02/20 05/31/21 Unknown .COMPLEX #300 g nystatin 100,000 unit/gram topical 1 applic TOPICAL DAILY PRN 12/23/20 05/31/21 Unknown cream fluocinonide 0.05 % topical cream 1 applic TOPICAL DAILY g 01/19/21 05/31/21 05/31/21 triamcinolone acetonide 0.1 % 1 applic TOPICAL UD 01/19/21 05/31/21 Unknown topical cream glucosamine 500 2 cap PO DAILY cap 02/04/21 05/31/21 05/31/21 [id number] comp 400 mg-D3 667 unit-C-Mn cap gabapentin 100 mg capsule 200 mg PO HS #60 cap 04/02/21 05/31/21 05/30/21 fluticasone propionate 50 1 - 2 spray INTRANASAL DAILY #18.2 04/03/21 05/31/21 05/31/21 mcg/actuation nasal ml spray,suspension lisinopril 20 mg tablet 10 mg PO DAILY #45 tab 04/08/21 05/31/21 05/31/21 albuterol sulfate 90 mcg/actuation 2 puff INHALATION Q4H PRN #1 g 04/10/21 0 05/31/21 Unknown aerosol inhaler umeclidinium 62.5 mcg-vilanterol 1 ea INHALATION DAILY 04/29/21 05/31/21 05/31/21 25 mcg/actuation powdr for inhalation (Anoro Ellipta) vitamins A,C,S-qjgi-mwcqgd 14,320 1 cap PO BID 05/12/21 05/31/21 05/31/21 08:00 unit-226 mg-200 unit capsule (PreserVision AREDS) clindamycin HCl 150 mg capsule 150 mg PO Q6H 7 Days #28 cap 05/30/21 05/31/21 05/31/21 08:00 Active Medications Generic Name Dose Route Start Last Admin Trade Name Freq PRN Reason Stop Dose Admin Acetaminophen 650 mg 05/31/21 22:14 05/31/21 23:00 Acetaminophen 325 Mg Tab PO 06/30/21 22:13 650 mg Q4H PRN Administration pain/fever Aspirin 81 mg 06/01/21 09:00 06/01/21 08:12 Aspirin 81 Mg Ectab PO 07/01/21 08:59 81 mg [id number] GARO Administration Fluticasone Propionate 2 sprays 06/01/21 09:00 06/01/21 08:12 Fluticasone Propionate Na Spr 16 Gm Btl OSIRIS 07/01/21 08:59 2 sprays DAILY GARO Administration Gabapentin 200 mg 05/31/21 22:30 05/31/21 23:00 Gabapentin 100 Mg Cap PO 06/30/21 22:29 200 mg HS GARO Administration Lactated Ringer's 1,000 mls @ 80 mls/hr 05/31/21 22:14 05/31/21 23:10 Lr IV 06/01/21 23:13 80 mls/hr .[id number] GARO Administration Lisinopril 10 mg 06/01/21 09:00 06/01/21 08:12 Lisinopril 10 Mg Tab PO 07/01/21 08:59 10 mg DAILY GARO Administration Multivitamins/Minerals 1 tab 06/01/21 09:00 06/01/21 08:12 Cerovite Adv Formula Tab PO 07/01/21 08:59 1 tab DAILY GARO Administration Umeclidinium/Vilanterol 1 puffs 06/01/21 09:00 06/01/21 08:12 Umeclidinium/Vilanterol 62.5/25mcg 7 Puffs/Inhaler INH 07/01/21 08:59 1 puffs DAILY GARO Administration Vitamin D 5,000 units 06/01/21 09:00 06/01/21 08:12 Cholecalciferol 1,000 Units 25 Mcg Tab PO 07/01/21 08:59 5,000 units DAILY GARO Administration Past Medical History Medical History ARF (acute renal failure) Arthritis, multiple joint involvement Balance problems Bradycardia CKD (chronic kidney disease), stage III COPD (chronic obstructive pulmonary disease) Dyspnea on exertion HTN (hypertension) Hypercholesterolemia Impaired fasting glucose Nocturia Osteoporosis Secondary hypothyroidism Syncope Syncope and collapse (05/15/14) Syncope and collapse UTI (urinary tract infection) Exercise / Class Metabolic Activity III < 4 Walking/Shop/Light housework Past Family History Family History Mother Alzheimer disease Family/Other No problems noted. Father Emphysema, unspecified Grandfather (Maternal) Colorectal cancer Uncle Prostate cancer Denies family history of Ovarian cancer Coronary heart disease Heart disease Myocardial infarction Breast cancer Past Surgical History Surgical History H/O: hysterectomy History of breast biopsy History of bunionectomy History of carpal tunnel surgery History of inguinal hernia repair History of myringotomy History of rotator cuff surgery Jul 2011--Dr. Whitten Hx of adenoidectomy Hx of tonsillectomy S/P appendectomy S/P cholecystectomy Past Anesthesia History No Hx of Anesthesia Complications and No Family Hx of Anesthesia Complications History of PONV No Hx of PONV and No Hx of Motion Sickness Social History Smoking Status: Former smoker tobacco type: cigarettes Do You Dip or Chew Tobacco: No Hx Alcohol Use: Yes Alcohol type: wine alcohol intake frequency: holidays/special occasions only Hx Substance Use: No substance use type: prescription drug Physical Exam Vital Signs Last Vital Signs Temp 36.5 C 06/01/21 06:58 Pulse 67 06/01/21 06:58 Resp 14 06/01/21 06:58 BP 133/67 06/01/21 06:58 Pulse Ox 92 06/01/21 06:58 Testing Laboratory Results 06/01/21 06:45 06/01/21 06:45 Urine Color Yellow 06/01/21 05:35 Urine Appearance Clear (Clear) 06/01/21 05:35 Urine pH 5.0 (4.5-7.5) 06/01/21 05:35 Ur Specific [place] 1.016 (1.000-1.030) 06/01/21 05:35 Urine Protein Negative (Negative) 06/01/21 05:35 Urine Glucose (UA) Negative (Negative) 06/01/21 05:35 Urine Ketones Trace (Negative) H 06/01/21 05:35 Urine Nitrite Negative (Negative) 06/01/21 05:35 Ur Leukocyte Esterase 1+ (Negative) H 06/01/21 05:35 Urine WBC (Auto) 10-30 /hpf (0-5) H 06/01/21 05:35 Urine RBC (Auto) 0-4 /hpf (0-4) 06/01/21 05:35 U Hyaline Cast (Auto) 1-5 /lpf (0-5) 06/01/21 05:35 U Epithel Cells (Auto) >30 /lpf (0-5) H 06/01/21 05:35 Urine Bacteria (Auto) Negative (Negative) 06/01/21 05:35 06/01/21 Unknown Gram Stain - Final Thumb,Right Electrocardiogram Date: 05/31/21 Findings: + NSR @ (at 71) and + NSST changes Chest X-Ray Date: 04/08/21 Findings: + NAD and + cardiomegaly Echocardiogram Date: 05/19/21 EF: 45% LV Function: global HK RWMA: + hypokinetic (mild) Other Findings: + atrial enlargement Valvular Disease: + no significant valvular disease Stress Test Date: 02/21/18 Type: DSE Findings: + WNL Pulmonary Function Test Date: 02/10/18 Findings: + other (mild-mod COPD) Other Testing 05/15/2014-Carotid U/S-no H/D sig stenosis
[2021-06-01] MEDS ORDERED: PROPOFOL IV EMULSION 10 MG/ML 20 ML VIAL IV ONE (15:02)
[2021-06-01] MEDS ORDERED: LIDOCAINE 2% 2 ML VIAL/AMP(20MG/ML) INFIL ONE (15:02)
[2021-06-01] MEDS ORDERED: ONDANSETRON INJ 2 MG/ML 2 ML VIAL ONE (15:02)
[2021-06-01] MEDS ORDERED: SUCCINYLCHOLINE 100MG/5ML SYR IV ONE (15:02)
[2021-06-01] MEDS ORDERED: fentaNYL citrate 100 MCG/2 ML VIAL ONE (15:03)
[2021-06-01] MEDS ORDERED: ROPIVACAINE 0.5% 5 MG/ML 30 ML VIAL ONE (15:14)
[2021-06-01] MEDS ORDERED: ceFAZolin 2000MG 2,000 MG/15 ML SYR IV ONE (15:24)
--- NOTE | 2021-06-01 16:20 | History & Physical Bridge Note ---
Date of Service June 01, 2021 History & Physical Bridge Note I have examined the patient, reviewed the History & Physical and in the interval since the performance of the History & Physical I have noted the following changes of clinical significant changes.
--- NOTE | 2021-06-01 16:21 | History & Physical Bridge Note ---
Date of Service June 01, 2021 History & Physical Bridge Note I have examined the patient, reviewed the History & Physical and in the interval since the performance of the History & Physical I have noted the following changes of clinical significance: no changes noted. White blood cell count on the aspirated fluid of 80,000. Given the constellation of signs and symptoms I think that this is underwriting account representative of acute pyogenic arthritis of the CMC joint of the right thumb. I have recommended operative intervention. I discussed with the patient and informed consent was signed. This is a surgical emergency. Positive blood cultures. Gram- negative's. We would have to wait till 5 PM. It is currently 420.
[2021-06-01] MEDS ORDERED: LIDOCAINE 1% LOCAL 20 ML VIAL ONE (16:25)
--- NOTE | 2021-06-01 17:14 | Operative Report ---
Post Operative Report Pre & Post Diagnosis Operation Date: 06/01/21 15:30 Pre-Op Diagnosis: Septic arthritis of right thumb carpalmetacarpal joint Post-Op Diagnosis: Septic arthritis of right thumb carpalmetacarpal joint I identified the patient and participated in the time-out.: Yes Procedure Operation Date: 06/01/21 15:30 Actual Procedures p Incision and drainage right thumb, carpalmetacarpal joint, scafotrapezial joint(Right) - Best Burnett MD Surgeon Best Burnett MD Hydro Generation Supervisor TONY Benoit, no resident or fellow available. Estimated Blood Loss 2 Findings Consistent with Post-Op Diagnosis Specimens Culture of the trapeziometacarpal joint i.e. the CMC joint of the right thumb. Drains [place] drain Anesthesia Type MAC Regional Complications none Disposition Accompanied Patient To Recovery: No Disposition: Recovery Room Indications Gayle is 86. She has a 2 to 3-day history of right thumb pain. She was into the ER and diagnosed with cellulitis. Blood cultures were obtained at that point which came back with gram-negative rods. She was asked to come back to the hospital. In the meantime her thumb worsened. She was evaluated today and fou nd to have signs and symptoms of potential infection versus gout involving the CMC joint of her right thumb. The wrist joint finger joints metacarpophalangeal joint of the hand otherwise unremarkable. An aspiration was done which yielded jeanna pus with a white blood cell count of 80,000. Cultures and crystals pending. I recommended urgent I&D and she agreed to proceed. Description of Procedure Informed consent obtained. Patient identified. She identified the operative site as the right thumb. I marked with my initials. A preoperative surgical timeout was performed. A preop dose of IV antibiotics was given. She was taken to the operating room positioned supine on the operating room table. She had a skin tear on her right upper forearm from an IV. This was excluded from the operative field. A tourniquet applied to the right arm. The limb was exsanguinated with gravity and the tourniquet inflated to 225 mmHg. DVT prophylaxis not necessary. I made a 5 cm incision centered over the CMC joint of the thumb. The skin was incised. The first dorsal compartment tendons were identified and retracted palmarly. The radial artery was identified in the snuffbox dissected free and retracted dorsally. I then went ahead and incised longitudinally the trapezio metacarpal and scaphoid trapezial joint capsules. Due to the contracture and deformity these were very close approximation to 1 another. Subperiosteal elevation was performed off of the base of the first metacarpal enough to open up the joint. There was cloudy and purulent fluid noted within the CMC joint but not much of it. The scaphoid trapezial joint look normal. There was no abscess noted. Synovitis was appreciated in the CMC joint. Both areas but predominantly the CMC joint were irrigated with 1 L of sterile saline. Tourniquet was let down let down and meticulous hemostasis. The radial artery remained intact. I then went ahead and closed the skin with 4-0 nylon and inserted a Dave drain. Xeroform 4 x 4's cast padding and a thumb spica splint were applied. Patient awakened from anesthesia without difficulty taken to recovery in stable condition. I took a culture of the CMC joint was sent for specimen. There were no complications counts were correct blood loss was 2 or 3 cc. At the conclusion of the operation I notified the patient's son informed him my findings and postop instructions were given. The plan is to admit her back to the hospital and do intravenous antibiotics. Follow-up on the cultures. Consult infectious diseases as is necessary. We will plan on pulling the drain in 24 to 48 hours. Preliminary read on the blood cultures is possible Pasteurella. She does have a cat but does not report any bites or scratches. I attest to the content of the Intraoperative Record and any orders documented therein. Any exceptions are noted below.
--- NOTE | 2021-06-01 17:25 | Operative Report ---
Post Operative Report Pre & Post Diagnosis Operation Date: 06/01/21 15:30 Pre-Op Diagnosis: Septic arthritis of right thumb carpalmetacarpal joint Post-Op Diagnosis: Septic arthritis of right thumb carpalmetacarpal joint I identified the patient and participated in the time-out.: Yes Procedure Operation Date: 06/01/21 15:30 Actual Procedures p Incision and drainage right thumb, carpalmetacarpal joint, scafotrapezial joint(Right) - Bset Burnett MD Surgeon Best Burnett MD Resistance Welding Machine Operator TONY Benoit, no resident or fellow available. Estimated Blood Loss 2 Findings Consistent with Post-Op Diagnosis Specimens none Drains suzanne Description of Procedure I was present during the entire case assisting with positioning, prepping, draping, wound retraction, wound closure, splint and dressing application. No fellow present. Please see Dr. Burnett procedure note for specifics. I attest to the content of the Intraoperative Record and any orders documented therein. Any exceptions are noted below.
[2021-06-01] MEDS ORDERED: NYSTATIN CR 15 GM TUBE EXT PRN (17:27)
[2021-06-01] MEDS ORDERED: ATROPINE SULFATE 0.1 MG/ML 10ML SYR IV PRN (17:27)
[2021-06-01] MEDS ORDERED: ePHEDrine sulfate 50 MG/ML AMP IV PRN (17:27)
[2021-06-01] MEDS ORDERED: ALBUTEROL HFA 8 GM INHALER INH PRN (17:27)
--- NOTE | 2021-06-01 18:23 | Anesthesiology Progress Note ---
Date of Service June 01, 2021 Anesthesia Post Procedure Vital Signs Vital Signs: Temp Pulse Pulse Pulse Resp BP BP 06/01/21 17:55 36.4 C L 66 15 143/73 H 06/01/21 17:45 67 17 159/67 H 06/01/21 17:35 69 14 140/66 06/01/21 17:25 36.7 C 66 15 145/62 H 06/01/21 14:32 36.7 C 66 16 06/01/21 06:58 36.5 C 67 14 05/31/21 22:00 36.8 C 79 16 05/31/21 21:44 75 16 169/70 H BP Pulse Ox 06/01/21 17:55 94 06/01/21 17:45 95 06/01/21 17:35 95 06/01/21 17:25 94 06/01/21 14:32 171/66 H 95 06/01/21 06:58 133/67 92 05/31/21 22:00 117/71 94 05/31/21 21:44 93 Pain Intensity Right Hand: Pain Intensity: 4 Transfer of Care Handoff Completed per policy Notes Mental Status: alert / awake / arousable Patient Amnestic to Procedure: Yes Nausea / Vomiting: adequately controlled Pain: adequately controlled Airway Patency, RR, SpO2: stable & adequate BP & HR: stable & adequate Hydration State: stable & adequate Anesthetic Complications: no major complications apparent
[2021-06-01] MEDS ORDERED: CEFEPIME 2,000 MG in SYRINGE 0 ML IV SCH (19:00)
[2021-06-01] MEDS: CLINDAMYCIN HCL 150 MG CAP PO SCH (19:21)
[2021-06-01] MEDS: GABAPENTIN 100 MG CAP PO SCH (21:37)
[2021-06-01] MEDS: TRIAMCINOLONE ACET 0.1% CR 15 GM TUBE TOP SCH (21:37)
--- NOTE | 2021-06-01 22:09 | Hospitalist Progress Note ---
Date of Service June 01, 2021 Assessment & Plan (1) Septic arthritis of hand, right: Plan: right thumb CMC joint. s/p I/D by Dr Burnett this afternoon. cell counts from arthrocentesis this am certainly concerning for infection (WBC 80,000). crystal analysis pending but gout unlikely. GNR has not been identified - await final ID. cont cefepime in meantime. appreciate orthopedic consultation and assistance. (2) Gram-negative bacteremia: Plan: IV Cefepime Follow blood cultures Source #1, #3 (3) Right arm cellulitis: Plan: Cont cefepime as above (4) CKD (chronic kidney disease), stage III: Plan: bmp in am for stability (5) HTN (hypertension): Plan: Continue lisinopril 10mg PO daily (6) Osteoporosis: Plan: Continue cholecalciferol supplementation (7) COPD (chronic obstructive pulmonary disease): Plan: Continue maintenance inhalers no exacerbation at this time Plan: DVT proph - hold on chemical means; uncertain if additional I/D will be needed family updated by phone this evening Admission and Anticipated Discharge Date Admission Date: May 31, 2021 Subjective saw patient just before she went to OR for wash-out of CMC joint of right thumb/wrist she was quite anxious she c/o pain in the right thumb/wrist she does have a cat at home named "kylee" doesn't recall any cat bites or scratch nursing staff report her IV blew just before my arrival and removing the dressing on the blown IV caused a skin tear (right arm) Review of Systems Review of Systems: gen - no fevers; no chills CV - no chest pain pulm - no dyspnea Physical Exam Physical Exam: gen - sitting in chair, anxious; but a/o x 3 mouth - MMM neck - no JVD heart - RRR s1 s2 lungs - CTA b/l abd - soft NT ND BS+ ext - no edema of legs; pulses 2+ b/l musculo - right arm wrapped in LEBRON wrap with thumb-spica splint present; did not remove these dressings; right hand fingers exposed, however, with mild edema present Results & Data Results & Data ([facility]) Vital Signs (Past 12 Hours) Vital Signs Temp Pulse Pulse Pulse Resp BP BP 06/01/21 20:28 36.9 C 70 18 136/66 06/01/21 19:25 36.8 C 72 18 152/70 H 06/01/21 18:51 36.4 C L 64 16 149/68 H 06/01/21 18:20 36.6 C 64 18 145/58 H 06/01/21 17:55 36.4 C L 66 15 143/73 H 06/01/21 17:45 67 17 159/67 H 06/01/21 17:35 69 14 140/66 06/01/21 17:25 36.7 C 66 15 145/62 H 06/01/21 14:32 36.7 C 66 16 171/66 H Pulse Ox 06/01/21 20:28 97 06/01/21 19:25 95 06/01/21 18:51 91 06/01/21 18:20 06/01/21 17:55 94 06/01/21 17:45 95 06/01/21 17:35 95 06/01/21 17:25 94 06/01/21 14:32 95 Laboratory Results Laboratory Results - last 24 hr 06/01/21 06/01/21 06/01/21 05:35 06:45 06:45 WBC 8.30 RBC 3.14 L Hgb 9.8 L Hct 31.7 L MCV 101.0 H MCH 31.2 MCHC 30.9 L RDW Std Deviation 50.1 H RDW Coeff of Stiven 13.6 Plt Count 211 MPV 9.8 Immature Gran % (Auto) 0.5 Neut % (Auto) 65.8 Lymph % (Auto) 19.5 [place] % (Auto) 10.8 Eos % (Auto) 3.0 Baso % (Auto) 0.4 Neut # (Auto) 5.46 Lymph # (Auto) 1.62 Anderson # (Auto) 0.90 H Eos # (Auto) 0.25 Baso # (Auto) 0.03 Immature Gran # (Auto) 0.04 H ESR Sodium 139 Potassium 4.6 Chloride 107 Carbon Dioxide 24 Anion Gap 8.0 BUN 32 H Creatinine 1.58 H Est Cr Clr Drug Dosing 24.0 Est GFR ( Amer) 33.7 Est GFR (Non-Af Amer) 29.1 BUN/Creatinine Ratio 20.4 H Glucose 91 Calcium 8.1 L C-Reactive Protein Urine Color Yellow Urine Appearance Clear Urine pH 5.0 Ur Specific [place] 1.016 Urine Protein Negative Urine Glucose (UA) Negative Urine Ketones Trace H Urine Blood Negative Urine Nitrite Negative Urine Bilirubin Negative Urine Urobilinogen Negative Ur Leukocyte Esterase 1+ H Urine WBC (Auto) 10-30 H Urine RBC (Auto) 0-4 U Hyaline Cast (Auto) 1-5 U Epithel Cells (Auto) >30 H Urine Bacteria (Auto) Negative Fluid Comment Synovial Source Synovial Color Synovial Appearance Synovial WBC Synovial RBC Synovial Polynuclear % Synovial Mononuclear % Synovial Crystals 06/01/21 06/01/21 06/01/21 06:45 06:45 Unknown WBC RBC Hgb Hct MCV MCH MCHC RDW Std Deviation RDW Coeff of Stiven Plt Count MPV Immature Gran % (Auto) Neut % (Auto) Lymph % (Auto) Anderson % (Auto) Eos % (Auto) Baso % (Auto) Neut # (Auto) Lymph # (Auto) Anderson # (Auto) Eos # (Auto) Baso # (Auto) Immature Gran # (Auto) ESR 34 H Sodium Potassium Chloride Carbon Dioxide Anion Gap BUN Creatinine Est Cr Clr Drug Dosing Est GFR ( Amer) Est GFR (Non-Af Amer) BUN/Creatinine Ratio Glucose Calcium C-Reactive Protein 9.41 H Urine Color Urine Appearance Urine pH Ur Specific [place] Urine Protein Urine Glucose (UA) Urine Ketones Urine Blood Urine Nitrite Urine Bilirubin Urine Urobilinogen Ur Leukocyte Esterase Urine WBC (Auto) Urine RBC (Auto) U Hyaline Cast (Auto) U Epithel Cells (Auto) Urine Bacteria (Auto) Fluid Comment Synovial Source FINGER Synovial Color STEPHY Synovial Appearance CLOUDY Synovial WBC 48048 H Synovial RBC 57172 Synovial Polynuclear % 90.5 Synovial Mononuclear % 9.5 Synovial Crystals 06/01/21 Unknown WBC RBC Hgb Hct MCV MCH MCHC RDW Std Deviation RDW Coeff of Stiven Plt Count MPV Immature Gran % (Auto) Neut % (Auto) Lymph % (Auto) [place] % (Auto) Eos % (Auto) Baso % (Auto) Neut # (Auto) Lymph # (Auto) Anderson # (Auto) Eos # (Auto) Baso # (Auto) Immature Gran # (Auto) ESR Sodium Potassium Chloride Carbon Dioxide Anion Gap BUN Creatinine Est Cr Clr Drug Dosing Est GFR ( Amer) Est GFR (Non-Af Amer) BUN/Creatinine Ratio Glucose Calcium C-Reactive Protein Urine Color Urine Appearance Urine pH Ur Specific [place] Urine Protein Urine Glucose (UA) Urine Ketones Urine Blood Urine Nitrite Urine Bilirubin Urine Urobilinogen Ur Leukocyte Esterase Urine WBC (Auto) Urine RBC (Auto) U Hyaline Cast (Auto) U Epithel Cells (Auto) Urine Bacteria (Auto) Fluid Comment Synovial Source Synovial Color Synovial Appearance Synovial WBC Synovial RBC Synovial Polynuclear % Synovial Mononuclear % Synovial Crystals Pending Diagnostic Findings 05/30 blood cx's: 1 out of 4 bottles + for GNR; blood cx's from 05/31 thus far negative PG Care Time/CCT Total # of Minutes Spent Total Time Spent with Patient: Total time spent is greater than 50% in coordination of care (as documented) at patient's floor/unit and/or counseling patient: Coding Level of Care Code 92086 Subseq Hosp Care Lvl 2 Diagnoses Gram-negative bacteremia R78.81 Right arm cellulitis L03.113 CKD (chronic kidney disease), stage III N18.3 HTN (hypertension) I10 Osteoporosis M81.0 COPD (chronic obstructive pulmonary disease) J44.9 Septic arthritis of hand, right M00.9
[2021-06-02] MEDS: CLINDAMYCIN HCL 150 MG CAP PO SCH ×3 (00:16→12:12)
[2021-06-02] MEDS: LACTATED RINGER'S 1,000 ML IV SCH (03:40)
[2021-06-02] MEDS: ACETAMINOPHEN 325 MG TAB PO PRN ×2 (03:43→08:36)
[2021-06-02] MEDS ORDERED: HYDROmorphone INJ 0.5 MG/0.5 ML SYR IV STA (03:57)
[2021-06-02 07:27] LABS: BUN Creatinine Ratio 21.6 (10-20); Calcium 8.2 mg/dl (8.5-10.1); Creatinine Clr Calc Pharmacy 26.1 ml/min; Est GFR (African American) 37.4 ml/min; Est GFR (Non-African American) 32.3 ml/min; Potassium 5.1 mmol/L (3.5-5.1)
[2021-06-02] MEDS: lisinopril 10 MG TAB PO SCH (08:36)
[2021-06-02] MEDS: FLUOCINONIDE 0.05% CR 15 GM TUBE EXT SCH (08:37)
[2021-06-02] MEDS: UMECLIDINIUM/VILANTEROL 62.5/25MCG 7 PUFFS/INHALER INH SCH (08:37)
[2021-06-02] MEDS: CHOLECALCIFEROL 1,000 UNITS 25 MCG TAB PO SCH (08:37)
[2021-06-02] MEDS: CEROVITE ADV FORMULA TAB PO SCH (08:37)
[2021-06-02] MEDS: FLUTICASONE PROPIONATE NA SPR 16 GM BTL NAE SCH (08:38)
[2021-06-02] MEDS: TRIAMCINOLONE ACET 0.1% CR 15 GM TUBE TOP SCH ×2 (08:39→20:15)
[2021-06-02] MEDS: ADVANCED PROBIOTIC 1250 MG CAPSULE PO SCH (10:56)
[2021-06-02] MEDS: AMPICILLIN/SULBACTAM SOD 3,000 MG in 0.9 % SODIUM CHLORIDE 100 ML IV SCH ×2 (11:30→20:12)
[2021-06-02] MEDS ORDERED: COLCHICINE 0.6 MG TAB PO ONE ×2 (12:27→17:00)
--- NOTE | 2021-06-02 12:30 | Hospitalist Progress Note ---
Date of Service June 02, 2021 Assessment & Plan (1) Septic arthritis of hand, right: Plan: right thumb CMC joint. POD#1 -- s/p I/D by Dr Burnett 06/01/21. cell counts from arthrocentesis pre-op with WBC 80,000 which prompted the I/D. crystal analysis with pseudogout crystals (see #2). thus, right CMC issues perhaps combo of infection and inflammatory arthritis. blood culture from several days ago with pasteurella thus her cat was the likely culprit for her right arm cellulitis. stop cefepime and clindamycin. change to IV unasyn. ID consult is pending. appreciate orthopedic consultation and assistance along with management/recs. (2) Pseudogout of hand: Plan: right CMC joint arthrocentesis -- fluid crystal analysis with pseudogout crystals. this may be the reason for why she has such severe pain. colchicine x 1 now. then repeat in 4 hours. norco q6h prn. consider course of colchicine or other NSAID. (3) Gram-negative bacteremia: Plan: 2nd pasteurella. see above. repeat blood cultures from time of admission negative. (4) Right arm cellulitis: Plan: likely 2nd pasteurella. d/c clinda and cefepime; change to unasyn IV. await intra-op culture and athrocentesis culture. (5) CKD (chronic kidney disease), stage III: Plan: bmp stable (6) HTN (hypertension): Plan: Continue lisinopril 10mg PO daily BPs labile likely due to pain; treat the pain (7) Osteoporosis: Plan: Continue cholecalciferol supplementation (8) COPD (chronic obstructive pulmonary disease): Plan: Continue maintenance inhalers no exacerbation at this time Plan: DVT proph - hold on chemical means; uncertain if additional I/D will be needed family updated by phone yesterday evening ID consult pending PT, OT consults requested Admission and Anticipated Discharge Date Admission Date: May 31, 2021 Subjective pt states she slept poorly last pm because of pain in right thumb region she is very tired today appetite is poor because of pain and simply feeling unwell very emotional during the visit - borderline tearful she asks for something for the pain got a 1-time dilaudid IV last pm -- nursing staff report it helped the pain but it made her confused Review of Systems Review of Systems: gen - no fevers or chills; c/o fatigue pulm - denies dyspnea cv - denies chest pain GI - denies abd pain or diarrhea Physical Exam Physical Exam: gen - looks tired today; tearful/emotional mouth - MMM neck - no JVD heart - RRR s1 s2 lungs - heavy breathing, but cta b/l; minimal dry rales bases abd - soft NT ND BS+ ext - no edema of legs; pulses 2+ b/l musculo - right arm wrapped in LEBRON wrap with thumb-spica splint present; did not remove these dressings; right hand fingers exposed, cap refill < 2 sec Results & Data Results & Data ([facility]) Vital Signs (Past 12 Hours) Vital Signs Temp Pulse Resp BP Pulse Ox 06/02/21 07:35 36.8 C 68 14 118/62 92 06/02/21 05:28 67 122/56 L 93 06/02/21 04:55 100/51 L 06/02/21 04:50 83/43 L 06/02/21 03:46 36.7 C 70 18 131/65 91 Laboratory Results Laboratory Results - last 24 hr 06/01/21 06/01/21 06/01/21 06:45 Unknown Unknown ESR 34 H Sodium Potassium Chloride Carbon Dioxide Anion Gap BUN Creatinine Est Cr Clr Drug Dosing Est GFR ( Amer) Est GFR (Non-Af Amer) BUN/Creatinine Ratio Glucose Calcium Magnesium Fluid Comment Synovial Source FINGER Synovial Color STEPHY Synovial Appearance CLOUDY Synovial WBC 71357 H Synovial RBC 07395 Synovial Polynuclear % 90.5 Synovial Mononuclear % 9.5 Synovial Crystals 06/02/21 06:06 ESR Sodium 136 Potassium 5.1 Chloride 105 Carbon Dioxide 23 Anion Gap 7.0 BUN 31 H Creatinine 1.45 H Est Cr Clr Drug Dosing 26.1 Est GFR ( Amer) 37.4 Est GFR (Non-Af Amer) 32.3 BUN/Creatinine Ratio 21.6 H Glucose 109 H Calcium 8.2 L Magnesium 2.0 Fluid Comment Synovial Source Synovial Color Synovial Appearance Synovial WBC Synovial RBC Synovial Polynuclear % Synovial Mononuclear % Synovial Crystals PG Care Time/CCT Total # of Minutes Spent Total Time Spent with Patient: Total time spent is greater than 50% in coordination of care (as documented) at patient's floor/unit and/or counseling patient: Coding Level of Care Code 54851 Subseq Hosp Care Lvl 2 Diagnoses Septic arthritis of hand, right M00.9 Gram-negative bacteremia R78.81 Right arm cellulitis L03.113 CKD (chronic kidney disease), stage III N18.3 HTN (hypertension) I10 Osteoporosis M81.0 COPD (chronic obstructive pulmonary disease) J44.9 Pseudogout of hand M11.249
--- NOTE | 2021-06-02 12:44 | Orthopedic Progress Note ---
Date of Service June 02, 2021 Assessment & Plan (1) Right arm cellulitis: Plan: POD 1 - s/p I&D right CMC joint of thumb Continue IV antibiotics Splint loosen and cotton padding loosen, pain from splint improved. Pain medication as prescribed. Keep splint in place that was placed on the patient's right thumb. Keep it clean and dry. Appreciate medicine service following patient. Cultures pending. Positive pseudogout. Will continue to follow, plan for dressing change tomorrow. Dr. Burnett made aware of today's findings. Admission and Anticipated Discharge Date Admission Date: May 31, 2021 Subjective Doing well, complaining of some pain in the wrist. Feels throbbing and splint is uncomfortable. Results & Data ([facility]) Vital Signs (Past 12 Hours) Vital Signs Temp Pulse Resp BP Pulse Ox 06/02/21 07:35 36.8 C 68 14 118/62 92 06/02/21 05:28 67 122/56 L 93 06/02/21 04:55 100/51 L 06/02/21 04:50 83/43 L 06/02/21 03:46 36.7 C 70 18 131/65 91 Laboratory Results 06/02/21 06/01/21 06/01/21 Range/Units 06:06 Unknown Unknown Sodium 136 (136-145) mmol/L Potassium 5.1 (3.5-5.1) mmol/L Chloride 105 (98-107) mmol/L Carbon Dioxide 23 (21-32) mmol/L Anion Gap 7.0 (3-11) BUN 31 H (7-18) mg/dl Creatinine 1.45 H (0.6-1.2) mg/dl Est Cr Clr Drug Dosing 26.1 ml/min Est GFR ( Amer) 37.4 ml/min Est GFR (Non-Af Amer) 32.3 ml/min BUN/Creatinine Ratio 21.6 H (10-20) Glucose 109 H (70-99) mg/dl Calcium 8.2 L (8.5-10.1) mg/dl Magnesium 2.0 (1.8-2.4) mg/dl Fluid Comment Synovial Source FINGER Synovial Color STEPHY Synovial Appearance CLOUDY Synovial WBC 92078 H (0-200) /ul Synovial RBC 08146 /uL Synovial Polynuclear % 90.5 % Synovial Mononuclear % 9.5 % Synovial Crystals Microbiology 06/01/21 17:00 Gram Stain - Final Thumb,Right Aerobic and Anaerobic Culture - Preliminary No growth to date. 06/01/21 Unknown Gram Stain - Final Thumb,Right Aerobic and Anaerobic Culture - Preliminary Pin-point growth present, reincubating. 05/31/21 19:22 Aerobic Blood Culture - Preliminary Blood No growth in Aerobic bottle after 24 hours. Anaerobic Blood Culture - Final 05/31/21 19:35 Aerobic Blood Culture - Preliminary Blood No growth in Aerobic bottle after 24 hours. Anaerobic Blood Culture - Preliminary No growth in Anaerobic bottle after 24 hours.
[2021-06-02] MEDS: HYDROCODONE/ACETAMOPHEN 5/325MG TAB PO PRN ×2 (12:47→20:18)
[2021-06-02] MEDS: GABAPENTIN 100 MG CAP PO SCH (20:12)
[2021-06-03] MEDS: ONDANSETRON INJ 2 MG/ML 2 ML VIAL IV PRN ×2 (01:29→09:36)
[2021-06-03 08:14] LABS: BUN Creatinine Ratio 19.9 (10-20); Calcium 8.3 mg/dl (8.5-10.1); Creatinine Clr Calc Pharmacy 28.3 ml/min; Est GFR (African American) 41.2 ml/min; Est GFR (Non-African American) 35.5 ml/min
[2021-06-03] MEDS ORDERED: COLCHICINE 0.6 MG TAB PO SCH (09:00)
[2021-06-03] MEDS: AMPICILLIN/SULBACTAM SOD 3,000 MG in 0.9 % SODIUM CHLORIDE 100 ML IV SCH ×2 (09:36→20:55)
[2021-06-03] MEDS: CHOLECALCIFEROL 1,000 UNITS 25 MCG TAB PO SCH (10:21)
[2021-06-03] MEDS: lisinopril 10 MG TAB PO SCH (10:22)
[2021-06-03] MEDS: ASPIRIN 81 MG ECTAB PO SCH (10:22)
[2021-06-03] MEDS: ADVANCED PROBIOTIC 1250 MG CAPSULE PO SCH (10:22)
[2021-06-03] MEDS: FLUTICASONE PROPIONATE NA SPR 16 GM BTL NAE SCH (10:23)
[2021-06-03] MEDS: CEROVITE ADV FORMULA TAB PO SCH (10:23)
[2021-06-03] MEDS: UMECLIDINIUM/VILANTEROL 62.5/25MCG 7 PUFFS/INHALER INH SCH (10:24)
[2021-06-03] MEDS: TRIAMCINOLONE ACET 0.1% CR 15 GM TUBE TOP SCH ×3 (10:25→20:51)
[2021-06-03] MEDS: FLUOCINONIDE 0.05% CR 15 GM TUBE EXT SCH ×2 (10:25→10:31)
--- NOTE | 2021-06-03 10:55 | Progress Notes ---
DATE OF SERVICE: 06/03/2021 She reports that she is feeling better. She has been up and about. There is less pain in her right thumb area. She is able to move it better. She is afebrile and her vital signs are stable. Her white count has returned to normal. Her culture s from her blood on 05/30 grew out Pasteurella multocida and she currently is growing out a gram-nega tive bacillus from her operative culture of the right thumb. Additionally, she has a positive pseudo gout. On examination today, the dressing is taken down and the [place] drain is removed. The stitch that w as in place there is tied. There is minimal erythema. No drainage. Swelling is improved. She does have swelling into her fingers. There is tenderness of the thumb CMC joint area, but nothing really of the wrist or fingers. She can move her fingers and move her wrist and move her thumb. Thumb mov ement is uncomfortable for her, but less painful than previous. IMPRESSION: Pseudogout of the right thumb along with bacterial joint sepsis secondary to gram-negativ e bacilli. PLAN: She can use her hand for ADLs. Wiggle the finger, elevate, apply ice. Continue IV antibiotic s per sensitivities. Consider ID consult as necessary. We will continue to monitor. We will add an anti-inflammatory such as Celebrex for any pseudogout symptoms that may be present. She is educated about what is going on and we talked about the plan, which would consist of continuing her antibioti cs. Job ID: [id number]
[2021-06-03] MEDS: CELECOXIB 100 MG CAP PO SCH ×2 (12:15→20:55)
[2021-06-03] MEDS: POLYETHYLENE (MIRALAX) 17 GM PACK PO PRN (15:25)
[2021-06-03] MEDS ORDERED: bisacodyL 10 MG SUPP PR STA (18:21)
[2021-06-03] MEDS: GABAPENTIN 100 MG CAP PO SCH (20:55)
--- NOTE | 2021-06-03 23:05 | Hospitalist Progress Note ---
Date of Service June 03, 2021 Assessment & Plan (1) Septic arthritis of hand, right: Plan: right thumb CMC joint. POD#2 -- s/p I/D by Dr Burnett 06/01/21. cell counts from arthrocentesis pre-op with WBC 80,000 which prompted the I/D. crystal analysis with pseudogout crystals (see #2). thus, right CMC issues is combo of infection and inflammatory arthritis. blood culture from several days ago with pasteurella thus her cat was the likely culprit for her right arm cellulitis. joint fluid culture now also growing GNR - suspect it will be pasteurella cont IV unasyn. [facility] ID consult is pending. appreciate orthopedic consultation and assistance along with management/recs. (2) Pseudogout of hand: Plan: right CMC joint arthrocentesis -- fluid crystal analysis with pseudogout crystals. likely another the reason for why she has such severe pain. colchicine x 3 doses over last 24 hours. celebrex added by ortho - d/c any further colchicine. norco q6h prn. (3) Gram-negative bacteremia: Plan: 2nd pasteurella. see above. repeat blood cultures from time of admission negative. IV unasyn. await ID recs. (4) Right arm cellulitis: Plan: likely 2nd pasteurella. cont unasyn IV. improving. (5) CKD (chronic kidney disease), stage III: Plan: bmp stable again today (6) HTN (hypertension): Plan: Continue lisinopril 10mg PO daily BPs labile likely due to pain +/- anxiety (7) Osteoporosis: Plan: Continue cholecalciferol supplementation (8) COPD (chronic obstructive pulmonary disease): Plan: Continue maintenance inhalers no exacerbation at this time (9) Constipation: Plan: dulcolax suppos x 1 now then bowel maintenance tomorrow no evidence of ileus Plan: DVT proph - can start chemical means tomorrow family updated by phone earlier this week left message for son on his voicemail this evening ID consult pending PT, OT consults requested Admission and Anticipated Discharge Date Admission Date: May 31, 2021 Subjective right wrist/thumb pain is improved today she is overall feeling much better she remains anxious - any discussion about the causative organism (pasteurella) and her cat causes anxiety and tearfulness I have reassured her she can keep her cat ! main complaint today is that of constipation she is passing flatus some nausea today no emesis last BM was at home prior to admission ambulating to bathroom w/o difficulty Review of Systems Review of Systems: gen - no fevers or chills CV - no chest pain Pulm - no cough or dyspnea GI - no abdominal pain but nausea/constipation are present musculo - right thumb pain - but improving Physical Exam Physical Exam: gen - looks overall better today mouth - MMM neck - no JVD heart - RRR s1 s2 lungs - cta b/l; minimal dry rales bases abd - soft NT; mild distension; BS+ ext - no edema of legs; pulses 2+ b/l musculo - cap refill right hand fingers <2sec; LEBRON wrap partially removed from right arm - mild erythema noted of distal arm approaching the right wrist; mild edema of right hand; I did NOT examine the CMC of thumb skin - resolving erythema right distal arm Results & Data Results & Data ([facility]) Vital Signs (Past 12 Hours) Vital Signs Temp Pulse Pulse Resp BP Pulse Ox 06/03/21 22:04 36.6 C 68 15 147/71 H 93 06/03/21 16:40 36.6 C 66 18 158/70 H 93 Laboratory Results Laboratory Results - last 24 hr 06/03/21 06:41 Sodium 137 Potassium 5.0 Chloride 106 Carbon Dioxide 25 Anion Gap 6.0 BUN 27 H Creatinine 1.34 H Est Cr Clr Drug Dosing 28.3 Est GFR ( Amer) 41.2 Est GFR (Non-Af Amer) 35.5 BUN/Creatinine Ratio 19.9 Glucose 87 Calcium 8.3 L PG Care Time/CCT Total # of Minutes Spent Total Time Spent with Patient: Total time spent is greater than 50% in coordination of care (as documented) at patient's floor/unit and/or counseling patient: Coding Level of Care Code 00420 Subseq Hosp Care Lvl 2 Diagnoses Septic arthritis of hand, right M00.9 Pseudogout of hand M11.249 Gram-negative bacteremia R78.81 Right arm cellulitis L03.113 CKD (chronic kidney disease), stage III N18.3 HTN (hypertension) I10 Osteoporosis M81.0 COPD (chronic obstructive pulmonary disease) J44.9 Constipation K59.00
[2021-06-04 07:33] LABS: BUN Creatinine Ratio 19.7 (10-20); Creatinine Clr Calc Pharmacy 27.1 ml/min; Est GFR (African American) 39.1 ml/min; Est GFR (Non-African American) 33.7 ml/min; Potassium 4.6 mmol/L (3.5-5.1)
[2021-06-04] MEDS: UMECLIDINIUM/VILANTEROL 62.5/25MCG 7 PUFFS/INHALER INH SCH (08:32)
[2021-06-04] MEDS: FLUTICASONE PROPIONATE NA SPR 16 GM BTL NAE SCH (08:32)
[2021-06-04] MEDS: TRIAMCINOLONE ACET 0.1% CR 15 GM TUBE TOP SCH ×2 (08:33→20:39)
[2021-06-04] MEDS: CEROVITE ADV FORMULA TAB PO SCH (08:34)
[2021-06-04] MEDS: ADVANCED PROBIOTIC 1250 MG CAPSULE PO SCH (08:34)
[2021-06-04] MEDS: CELECOXIB 100 MG CAP PO SCH ×2 (08:34→20:40)
[2021-06-04] MEDS: lisinopril 10 MG TAB PO SCH (08:34)
[2021-06-04] MEDS: CHOLECALCIFEROL 1,000 UNITS 25 MCG TAB PO SCH (08:34)
[2021-06-04] MEDS: FLUOCINONIDE 0.05% CR 15 GM TUBE EXT SCH (08:34)
[2021-06-04] MEDS: POLYETHYLENE (MIRALAX) 17 GM PACK PO PRN (08:36)
[2021-06-04] MEDS: AMPICILLIN/SULBACTAM SOD 3,000 MG in 0.9 % SODIUM CHLORIDE 100 ML IV SCH ×2 (08:46→20:43)
[2021-06-04] MEDS: SENNA 8.6 MG TAB PO SCH (11:08)
--- NOTE | 2021-06-04 13:16 | Hospitalist Progress Note ---
Date of Service June 04, 2021 Assessment & Plan (1) Septic arthritis of hand, right: Plan: right thumb CMC joint. POD#3 -- s/p I/D by Dr Burnett 06/01/21. cell counts from arthrocentesis pre-op with WBC 80,000 which prompted the I/D. crystal analysis with pseudogout crystals (see #2). thus, right CMC issues is combo of infection and inflammatory arthritis. overall clinically improved. blood culture from several days ago with pasteurella thus her cat was the likely culprit for her right arm cellulitis. joint fluid culture also with pasteurella cont IV unasyn. [facility] ID consult completed this am. they have recommended 4 weeks of IV ertapenem if possible. if IV is not possible then 4 weeks of augmentin. will involve SW to assist with antibiotics post-d/c. appreciate orthopedic consultation and assistance along with management/recs. (2) Pseudogout of hand: Plan: right CMC joint arthrocentesis -- fluid crystal analysis with pseudogout crystals. cont celebrex. norco q6h prn. (3) Gram-negative bacteremia: Plan: 2nd pasteurella. see above. repeat blood cultures from time of admission negative. IV unasyn. ID recs noted - 4 weeks of IV ertapenem vs 4 weeks of PO augmentin. (4) Right arm cellulitis: Plan: 2nd pasteurella. cont unasyn IV. improving/nearly resolved. (5) CKD (chronic kidney disease), stage III: Plan: bmp stable bmp am (6) HTN (hypertension): Plan: Continue lisinopril 10mg PO daily BPs labile likely due to pain +/- anxiety (7) Osteoporosis: Plan: Continue cholecalciferol supplementation (8) COPD (chronic obstructive pulmonary disease): Plan: Continue maintenance inhalers no exacerbation at this time (9) Constipation: Plan: resolved now with copious diarrhea given the broad-spectrum IV abx - checked c.diff -- negative cont lactinex Plan: pt's son, Wisam (lives in [place]) -- updated extensively by phone this evening PT, OT consults done - cleared for return home at the [place] [facility] (independent living) Admission and Anticipated Discharge Date Admission Date: May 31, 2021 Subjective patient began to experience diarrhea this am after 5+ days of no bowel movement she had received only 1 dose of miralax this am stool was dark per staff patient is very anxious about her right arm/hand infection, her cat, the diarrhea, etc. she does report that her right thumb is feeling much better - still "sore" but much better ROM of right thumb also improving Review of Systems Review of Systems: gen - no fevers, no chills CV - no chest pain pulm - mild LEBLANC x 1 episode only, no cough, no dyspnea at rest abd - mild bloating, no pain; diarrhea x 2-3 episodes this am Physical Exam Physical Exam: gen - NAD, sitting in chair mouth - MMM neck - no JVD heart - RRR s1 s2 lungs - minimal dry rales bases abd - soft, NT, distension improved today, BS+ ext - no edema of legs; pulses 2+ b/l skin - minimal erythema right distal arm just proximal to wrist; right CMC joint of thumb with mild swelling, sutures intact; no drainage musculo - good ROM of right thumb; mildly tender right thumb CMC joint to palpation psych - tearful, anxious Results & Data Results & Data ([facility]) Vital Signs (Past 12 Hours) Vital Signs Temp Pulse Resp BP Pulse Ox 06/04/21 08:29 69 157/77 H 06/04/21 07:11 36.6 C 72 19 175/79 H 91 Laboratory Results Laboratory Results - last 24 hr 06/04/21 06:26 Sodium 136 Potassium 4.6 Chloride 105 Carbon Dioxide 26 Anion Gap 5.0 BUN 28 H Creatinine 1.40 H Est Cr Clr Drug Dosing 27.1 Est GFR ( Amer) 39.1 Est GFR (Non-Af Amer) 33.7 BUN/Creatinine Ratio 19.7 Glucose 89 Calcium 8.0 L Diagnostic Findings Microbiology 06/01/21 Unknown Thumb,Right Gram Stain - Final 06/01/21 Unknown Thumb,Right Aerobic and Anaerobic Culture - Preliminary Pasteurella multocida 06/01/21 05:35 Urine,Clean Catch Urine Culture - Final More than three types of organisms present, all low counts mixed probable skin cam. No further identifications or sensitivities to follow. 05/31/21 19:35 Blood Aerobic Blood Culture - Preliminary No growth in Aerobic bottle after 48 hours. 05/31/21 19:35 Blood Anaerobic Blood Culture - Preliminary No growth in Anaerobic bottle after 48 hours. 09/05/21 19:22 Blood Aerobic Blood Culture - Preliminary No growth in Aerobic bottle after 48 hours. 05/31/21 19:22 Blood Anaerobic Blood Culture - Final 06/01/21 17:00 Thumb,Right Gram Stain - Final 06/01/21 17:00 Thumb,Right Aerobic and Anaerobic Culture - Preliminary No growth to date. PG Care Time/CCT Total # of Minutes Spent Total Time Spent with Patient: Total time spent is greater than 50% in coordination of care (as documented) at patient's floor/unit and/or counseling patient: Coding Level of Care Code 00715 Subseq Hosp Care Lvl 3 Diagnoses Septic arthritis of hand, right M00.9 Pseudogout of hand M11.249 Gram-negative bacteremia R78.81 Right arm cellulitis L03.113 CKD (chronic kidney disease), stage III N18.3 HTN (hypertension) I10 Osteoporosis M81.0 COPD (chronic obstructive pulmonary disease) J44.9 Constipation K59.00
--- NOTE | 2021-06-04 17:45 | Progress Note ---
Date of Service June 04, 2021 Assessment & Plan (1) Pseudogout of hand: Plan: Doing well. Continue the anti-inflammatory and IV antibiotics. We will will follow up with her in the office on Tuesday if she is discharged. Present on Admission?: Yes (2) Septic arthritis of hand, right: Present on Admission?: Yes Admission and Anticipated Discharge Date Admission Date: May 31, 2021 Subjective Feels well except for itching. The pain is largely dissipated. Physical Exam Physical Exam: There is no fluctuance. Erythema is minimal. It is sore to touch but not severe pain like it had been. She has good movement of her thumb and wrist. Neurovascular grossly normal. Swelling minimal. Results & Data ([facility]) Vital Signs (Past 12 Hours) Vital Signs Temp Pulse Resp BP Pulse Ox 06/04/21 15:46 36.5 C 100 H 18 169/62 H 97 06/04/21 08:29 69 157/77 H 06/04/21 07:11 36.6 C 72 19 175/79 H 91
[2021-06-04] MEDS: GABAPENTIN 100 MG CAP PO SCH (20:40)
[2021-06-05 07:20] LABS: BUN Creatinine Ratio 18.3 (10-20); C Reactive Protein 7.23 mg/dl (0-0.29); Calcium 8.3 mg/dl (8.5-10.1); Creatinine Clr Calc Pharmacy 28.3 ml/min; Est GFR (African American) 41.2 ml/min; Est GFR (Non-African American) 35.5 ml/min; Potassium 4.6 mmol/L (3.5-5.1)
[2021-06-05] MEDS: ASPIRIN 81 MG ECTAB PO SCH (08:36)
[2021-06-05] MEDS: CELECOXIB 100 MG CAP PO SCH ×2 (08:36→20:51)
[2021-06-05] MEDS: POLYETHYLENE (MIRALAX) 17 GM PACK PO SCH (08:37)
[2021-06-05] MEDS: SENNA 8.6 MG TAB PO SCH (08:37)
[2021-06-05] MEDS: ADVANCED PROBIOTIC 1250 MG CAPSULE PO SCH (08:37)
[2021-06-05] MEDS: FLUTICASONE PROPIONATE NA SPR 16 GM BTL NAE SCH (08:37)
[2021-06-05] MEDS: lisinopril 10 MG TAB PO SCH (08:37)
[2021-06-05] MEDS: CEROVITE ADV FORMULA TAB PO SCH (08:38)
[2021-06-05] MEDS: TRIAMCINOLONE ACET 0.1% CR 15 GM TUBE TOP SCH ×2 (08:38→20:52)
[2021-06-05] MEDS: CHOLECALCIFEROL 1,000 UNITS 25 MCG TAB PO SCH (08:38)
[2021-06-05] MEDS: FLUOCINONIDE 0.05% CR 15 GM TUBE EXT SCH (08:39)
[2021-06-05] MEDS: UMECLIDINIUM/VILANTEROL 62.5/25MCG 7 PUFFS/INHALER INH SCH (08:39)
[2021-06-05] MEDS: AMPICILLIN/SULBACTAM SOD 3,000 MG in 0.9 % SODIUM CHLORIDE 100 ML IV SCH ×2 (08:51→20:49)
--- NOTE | 2021-06-05 10:17 | XRay Report ---
XR chest 2V PA/lateral CLINICAL HISTORY: dyspnea, ?pulm edema? COMPARISON STUDY: Chest radiograph April 08, 2021. FINDINGS: There are small bilateral pleural effusions. These have developed since prior examination. Cardiomegaly is unchanged. There are mild bibasilar opacities. There is mild interstitial thickening. There may be several healing right lower rib fractures. IMPRESSION: 1. Interval development of interstitial thickening suggestive of pulmonary edema. 2. Small bilateral pleural effusions with bibasilar opacities that favor atelectasis. ACT 112: Negative or not required by law. Electronically signed by: Oleksandr Napier M.D. 06/05/2021 10:16 AM
[2021-06-05] MEDS: NITROGLYCERIN 2% OINTMENT 30GM TUBE EXT SCH ×3 (12:20→21:42)
[2021-06-05] MEDS ORDERED: FUROSEMIDE 20 MG in SYRINGE 0 ML IV ONE (14:00)
[2021-06-05] MEDS: ONDANSETRON INJ 2 MG/ML 2 ML VIAL IV PRN (18:26)
[2021-06-05] MEDS: GABAPENTIN 100 MG CAP PO SCH (20:51)
[2021-06-05] MEDS: ACETAMINOPHEN 325 MG TAB PO PRN (21:02)
--- NOTE | 2021-06-05 23:26 | Hospitalist Progress Note ---
Date of Service June 05, 2021 Assessment & Plan (1) Acute diastolic HF (heart failure): Plan: likely 2nd to prior IVF, IV antibiotics (volume from those abx), etc. lasix 20mg IV x 1 cxr confirms pulmonary edema exam c/w CHF re-eval in am (2) Septic arthritis of hand, right: Plan: right thumb CMC joint. IMPROVING nicely. POD#4 -- s/p I/D by Dr Burnett 06/01/21. cell counts from arthrocentesis pre-op with WBC 80,000 which prompted the I/D. crystal analysis with pseudogout crystals (see #2). thus, right CMC issues is combo of infection and inflammatory arthritis. overall clinically improved. blood culture from several days ago with pasteurella thus her cat was the likely culprit for her right arm cellulitis. joint fluid culture also with pasteurella cont IV unasyn. [facility] ID consult completed. they have recommended 4 weeks of IV ertapenem if possible. this would be most ideal. if IV is not possible then 4 weeks of augmentin. will involve SW to assist with antibiotics post-d/c. appreciate orthopedic consultation and assistance along with management/recs. (3) Pseudogout of hand: Plan: right CMC joint arthrocentesis -- fluid crystal analysis with pseudogout crystals. cont celebrex. norco q6h prn. IMPROVING pain/swelling. (4) Gram-negative bacteremia: Plan: 2nd pasteurella. see above. repeat blood cultures from time of admission negative. IV unasyn. ID recs noted - 4 weeks of IV ertapenem vs 4 weeks of PO augmentin. Former would be preference if possible. (5) Right arm cellulitis: Plan: 2nd pasteurella. cont unasyn IV. resolved. (6) HTN (hypertension): Plan: Continue lisinopril 10mg PO daily BPs labile likely due to pain +/- anxiety adding topical nitrates to help with afterload reduction & diuresis. (7) Osteoporosis: Plan: Continue cholecalciferol supplementation (8) COPD (chronic obstructive pulmonary disease): Plan: Continue maintenance inhalers no exacerbation at this time dyspnea is due to #1 not this (9) Constipation: Plan: resolved then developed severe diarrhea - c diff neg (10) Chronic kidney disease, stage IV (severe): Plan: baseline CrCL upper 20s bmp am due to lasix use (11) DVT prophylaxis: Plan: add heparin 5000 BID Plan: pt's son, Wisam (lives in [place]) -- updated extensively by phone yesterday evening PT, OT consults done - cleared for return home at the [facility] (independent living) IV vs PO abx along with #1 above will hold up discharge will d/w social work her dispo Admission and Anticipated Discharge Date Admission Date: May 31, 2021 Subjective pt again quite tearful today during the visit main complaint was that of dyspnea with exertion - worse than yesterday she was tearful because of her disposition she wants to return home but needs IV antibiotics and this complicates her discharge she doesn't think she can stay with her son who is local although patient did live with son prior to going into Independent Living at the [facility] she asks "can I just do the antibiotics myself?" diarrhea is resolved eating fair right thumb pain is there - calls it "sore" but MUCH better than when she was first admitted Review of Systems Review of Systems: gen - no fevers or chills pulm - dyspnea, but no cough CV - mild orthopnea GI - bloating improved; diarrhea improved Physical Exam Physical Exam: gen - NAD, sitting in chair, tearful mouth - MMM neck - JVD present even upright in chair heart - RRR s1 s2 lungs - b/l rales - worse today abd - soft, NT, ND, BS+ ext - trace edema of legs; pulses 2+ b/l skin - minimal erythema right distal arm just proximal to wrist; right CMC joint of thumb with mild swelling, sutures intact; no drainage musculo - good ROM of right thumb Results & Data Results & Data ([facility]) Vital Signs (Past 12 Hours) Vital Signs Temp Pulse Resp BP Pulse Ox 06/05/21 22:54 36.7 C 70 22 157/71 H 91 06/05/21 21:40 73 169/80 H 91 06/05/21 18:26 77 165/74 H 06/05/21 16:35 181/72 H 06/05/21 16:12 36.7 C 69 18 163/90 H 93 06/05/21 11:49 151/70 H Laboratory Results Laboratory Results - last 24 hr 06/05/21 06:29 Sodium 136 Potassium 4.6 Chloride 105 Carbon Dioxide 26 Anion Gap 5.0 BUN 25 H Creatinine 1.34 H Est Cr Clr Drug Dosing 28.3 Est GFR ( Amer) 41.2 Est GFR (Non-Af Amer) 35.5 BUN/Creatinine Ratio 18.3 Glucose 95 Calcium 8.3 L C-Reactive Protein 7.23 H PG Care Time/CCT Total # of Minutes Spent Total Time Spent with Patient: Total time spent is greater than 50% in coord ination of care (as documented) at patient's floor/unit and/or counseling patient: Coding Level of Care Code 08947 Subseq Hosp Care Lvl 3 Diagnoses Septic arthritis of hand, right M00.9 Pseudogout of hand M11.249 Gram-negative bacteremia R78.81 Right arm cellulitis L03.113 HTN (hypertension) I10 Osteoporosis M81.0 COPD (chronic obstructive pulmonary disease) J44.9 Constipation K59.00 Acute diastolic HF (heart failure) I50.31 Chronic kidney disease, stage IV (severe) N18.4 DVT prophylaxis Z29.9
[2021-06-06] MEDS: NITROGLYCERIN 2% OINTMENT 30GM TUBE EXT SCH ×3 (03:24→15:33)
[2021-06-06 08:24] LABS: Hematocrit (blood only) 32.1 % (37-47); Mean Corpuscular Hemoglobin 31.3 pg (25-34); Mean Corpuscular Hgb Conc 31.2 g/dL (32-36); Mean Corpuscular Volume 100.6 fL (80-100); Mean Platelet Volume 9.4 fL (7.4-10.4); Platelet Count 300 K/uL (130-400); RDW Standard Deviation 47.9 fL (36.4-46.3); Red Blood Count 3.19 M/uL (4.2-5.4); White Blood Count 8.26 K/uL (4.8-10.8)
[2021-06-06 08:53] LABS: BUN Creatinine Ratio 17.7 (10-20); Calcium 8.4 mg/dl (8.5-10.1); Creatinine Clr Calc Pharmacy 26.1 ml/min; Est GFR (African American) 37.4 ml/min; Est GFR (Non-African American) 32.3 ml/min; Potassium 4.3 mmol/L (3.5-5.1)
[2021-06-06] MEDS: AMPICILLIN/SULBACTAM SOD 3,000 MG in 0.9 % SODIUM CHLORIDE 100 ML IV SCH ×2 (09:28→20:31)
[2021-06-06] MEDS: HEPARIN SOD 5,000 UNIT/0.5 ML VIAL SQ SCH ×2 (09:29→20:42)
[2021-06-06] MEDS: SENNA 8.6 MG TAB PO SCH (09:29)
[2021-06-06] MEDS: POLYETHYLENE (MIRALAX) 17 GM PACK PO SCH (09:29)
[2021-06-06] MEDS: UMECLIDINIUM/VILANTEROL 62.5/25MCG 7 PUFFS/INHALER INH SCH (09:30)
[2021-06-06] MEDS: CELECOXIB 100 MG CAP PO SCH ×2 (09:30→20:41)
[2021-06-06] MEDS: FLUTICASONE PROPIONATE NA SPR 16 GM BTL NAE SCH (09:30)
[2021-06-06] MEDS: lisinopril 10 MG TAB PO SCH ×2 (09:30→21:14)
[2021-06-06] MEDS: CEROVITE ADV FORMULA TAB PO SCH (09:31)
[2021-06-06] MEDS: ADVANCED PROBIOTIC 1250 MG CAPSULE PO SCH (09:31)
[2021-06-06] MEDS: CHOLECALCIFEROL 1,000 UNITS 25 MCG TAB PO SCH (09:32)
[2021-06-06] MEDS: FLUOCINONIDE 0.05% CR 15 GM TUBE EXT SCH (09:33)
[2021-06-06] MEDS: TRIAMCINOLONE ACET 0.1% CR 15 GM TUBE TOP SCH ×2 (09:33→21:18)
[2021-06-06] MEDS: ACETAMINOPHEN 325 MG TAB PO PRN ×2 (10:28→20:40)
[2021-06-06] MEDS ORDERED: FUROSEMIDE 20 MG in SYRINGE 0 ML IV ONE (11:00)
[2021-06-06] MEDS: GABAPENTIN 100 MG CAP PO SCH (20:41)
--- NOTE | 2021-06-06 21:19 | Hospitalist Progress Note ---
Date of Service June 06, 2021 Assessment & Plan (1) Acute diastolic HF (heart failure): Plan: improved. lasix 20mg IV x 1 again today then maybe PO lasix tomorrow suspect IV antibiotics (volume from those abx), IVF, elevated BPs, etc. led to decompensation (2) Septic arthritis of hand, right: Plan: right thumb CMC joint. IMPROVING nicely. POD#5 -- s/p I/D by Dr Burnett 06/01/21. cell counts from arthrocentesis pre-op with WBC 80,000 which prompted the I/D. crystal analysis with pseudogout crystals (see #2). thus, right CMC issues is combo of infection and inflammatory arthritis. overall clinically improved. blood culture from several days ago with pasteurella thus her cat was the likely culprit for her right arm cellulitis. joint fluid culture also with pasteurella [facility] ID consult completed. they have recommended 4 weeks of IV ertapenem if possible. this would be most ideal. if IV is not possible then 4 weeks of augmentin. we spent the day today exhausting all avenues for trying to get IV abx outside of hospital - this is simply not possible thus, change IV unasyn to PO augmentin tomorrow and plan 4 weeks of such cont lactinex (3) Pseudogout of hand: Plan: right CMC joint arthrocentesis -- fluid crystal analysis with pseudogout crystals. cont celebrex. norco q6h prn. IMPROVING pain/swelling. (4) Gram-negative bacteremia: Plan: 2nd pasteurella. see above. repeat blood cultures from time of admission negative. IV unasyn. Over to augmentin tomorrow. See above. (5) Right arm cellulitis: Plan: 2nd pasteurella. cont unasyn IV. resolved. (6) HTN (hypertension): Plan: Continue lisinopril 10mg but increase to BID dosing due to high BPs BPs labile likely due to pain +/- anxiety stop nitropaste (7) Osteoporosis: Plan: Continue cholecalciferol supplementation (8) COPD (chronic obstructive pulmonary disease): Plan: Continue maintenance inhalers no exacerbation at this time dyspnea is due to #1 not this (9) Constipation: Plan: resolved then developed severe diarrhea - c diff neg (10) Chronic kidney disease, stage IV (severe): Plan: baseline CrCL upper 20s bmp am due to lasix use (11) DVT prophylaxis: Plan: heparin 5000 BID Plan: pt's son, Wisam (lives in [place]) -- updated extensively by phone and today PT, OT consults done - cleared for return home at the [facility] living[facility] d/w social work today - plan - home with PO augmentin d/c home on Tuesday has f/u with Dr Burnett on TUESDAY Admission and Anticipated Discharge Date Admission Date: May 31, 2021 Subjective we spent the visit talking about dispo she stated she cannot stay (and doesn't want to either) with her son who is local she has not spoken with her daughter despite the daughter being local we discussed the abx - IV vs PO - and she became very anxious talking about IV abx outside of the hospital she was relieved after we decided simply to do a course of PO augmentin breathing is nearly back to normal scant amount of LEBLANC - but she has this at home, too eating well diarrhea stopped moving the right thumb well Review of Systems Review of Systems: gen - no fever cv - no chest pain abd - no pain Pulm - no cough, minimal LEBLANC only Physical Exam Physical Exam: gen - NAD, sitting in chair, best she has looked all week mouth - MMM neck - JVD resolved heart - RRR s1 s2 1/6 DAT LSB lungs - b/l rales nearly resolved abd - soft, NT, ND, BS+ ext - trace edema of legs; pulses 2+ b/l skin - minimal erythema right distal arm just proximal to thumb and over the CMC; right CMC joint of thumb with mild swelling, sutures intact; no drainage musculo - excellent/improved active ROM of R thumb Results & Data Results & Data ([facility]) Vital Signs (Past 12 Hours) Vital Signs Temp Pulse Resp BP Pulse Ox 06/06/21 15:57 36.6 C 72 16 161/76 H 91 Laboratory Results Laboratory Results - last 24 hr 06/06/21 06/06/21 08:05 08:05 WBC 8.26 RBC 3.19 L Hgb 10.0 L Hct 32.1 L MCV 100.6 H MCH 31.3 MCHC 31.2 L RDW Std Deviation 47.9 H RDW Coeff of Stiven 13.0 Plt Count 300 MPV 9.4 Sodium 138 Potassium 4.3 Chloride 105 Carbon Dioxide 27 Anion Gap 6.0 BUN 26 H Creatinine 1.45 H Est Cr Clr Drug Dosing 26.1 Est GFR ( Amer) 37.4 Est GFR (Non-Af Amer) 32.3 BUN/Creatinine Ratio 17.7 Glucose 92 Calcium 8.4 L Magnesium 2.0 PG Care Time/CCT Total # of Minutes Spent Total Time Spent with Patient: Total time spent is greater than 50% in coordi nation of care (as documented) at patient's floor/unit and/or counseling patient: Coding Level of Care Code 51722 Subseq Hosp Care Lvl 3 Diagnoses Acute diastolic HF (heart failure) I50.31 Septic arthritis of hand, right M00.9 Pseudogout of hand M11.249 Gram-negative bacteremia R78.81 Right arm cellulitis L03.113 HTN (hypertension) I10 Osteoporosis M81.0 COPD (chronic obstructive pulmonary disease) J44.9 Constipation K59.00 Chronic kidney disease, stage IV (severe) N18.4 DVT prophylaxis Z29.9
[2021-06-07] MEDS: ACETAMINOPHEN 325 MG TAB PO PRN (04:41)
[2021-06-07 07:00] LABS: BUN Creatinine Ratio 23.5 (10-20); Calcium 8.1 mg/dl (8.5-10.1); Creatinine Clr Calc Pharmacy 28.5 ml/min; Est GFR (African American) 41.6 ml/min; Est GFR (Non-African American) 35.9 ml/min; Potassium 4.1 mmol/L (3.5-5.1)
[2021-06-07] MEDS: UMECLIDINIUM/VILANTEROL 62.5/25MCG 7 PUFFS/INHALER INH SCH (09:03)
[2021-06-07] MEDS: CELECOXIB 100 MG CAP PO SCH ×2 (09:04→21:45)
[2021-06-07] MEDS: FLUTICASONE PROPIONATE NA SPR 16 GM BTL NAE SCH (09:04)
[2021-06-07] MEDS: CEROVITE ADV FORMULA TAB PO SCH (09:05)
[2021-06-07] MEDS: SENNA 8.6 MG TAB PO SCH (09:05)
[2021-06-07] MEDS: ADVANCED PROBIOTIC 1250 MG CAPSULE PO SCH (09:05)
[2021-06-07] MEDS: CHOLECALCIFEROL 1,000 UNITS 25 MCG TAB PO SCH (09:05)
[2021-06-07] MEDS: lisinopril 10 MG TAB PO SCH ×2 (09:06→21:46)
[2021-06-07] MEDS: HEPARIN SOD 5,000 UNIT/0.5 ML VIAL SQ SCH ×2 (09:06→21:45)
[2021-06-07] MEDS: POLYETHYLENE (MIRALAX) 17 GM PACK PO SCH (09:06)
[2021-06-07] MEDS: TRIAMCINOLONE ACET 0.1% CR 15 GM TUBE TOP SCH ×2 (09:07→21:47)
[2021-06-07] MEDS: FLUOCINONIDE 0.05% CR 15 GM TUBE EXT SCH (09:08)
[2021-06-07] MEDS: AMPICILLIN/SULBACTAM SOD 3,000 MG in 0.9 % SODIUM CHLORIDE 100 ML IV SCH (09:08)
[2021-06-07] MEDS ORDERED: POTASSIUM CHLORIDE 10 MEQ TABCR PO STA (10:33)
[2021-06-07] MEDS ORDERED: FUROSEMIDE 20 MG TAB PO ONE (10:33)
[2021-06-07] MEDS: AMOXICILLIN/CLAVULANATE 500 MG TAB PO SCH (16:26)
[2021-06-07] MEDS ORDERED: FUROSEMIDE 20 MG in SYRINGE 0 ML IV ONE (16:30)
[2021-06-07] MEDS ORDERED: LOPERAMIDE HCL 2 MG CAP PO PRN (17:56)
[2021-06-07] MEDS ORDERED: MELATONIN 3 MG TAB PO SCH (21:00)
[2021-06-07] MEDS: ONDANSETRON INJ 2 MG/ML 2 ML VIAL IV PRN (21:40)
[2021-06-07] MEDS: GABAPENTIN 100 MG CAP PO SCH (21:46)
--- NOTE | 2021-06-07 22:29 | Hospitalist Progress Note ---
Date of Service June 07, 2021 Assessment & Plan (1) Septic arthritis of hand, right: Plan: right thumb CMC joint. IMPROVING/Resolving nicely. POD#6 -- s/p I/D by Dr Burnett 06/01/21. cell counts from arthrocentesis pre-op with WBC 80,000 which prompted the I/D. crystal analysis with pseudogout crystals (see below). thus, right CMC issues is combo of infection and inflammatory arthritis. blood culture from several days ago with pasteurella thus her cat was the likely culprit for her right arm cellulitis. joint fluid culture also with pasteurella [facility] ID consult completed. they have recommended 4 weeks of IV ertapenem if possible. this would be most ideal. if IV is not possible then 4 weeks of augmentin. we spent the weekend - in conjunction with social work assistance - to determine a care plan that would allow IV antibiotics outside the hospital unfortunately we have exhausted all avenues for trying to get IV abx outside of hospital - this is simply not possible thus, changed IV unasyn to PO augmentin today again 4 weeks of augmentin cont lactinex c diff testing not performed this am as stool was formed (despite patient stating she was having diarrhea) c diff testing a few days was negative pt has f/u with Dr Burnett on Tuesday in [facility] (2) Acute on chronic systolic heart failure: Plan: echo 04/2021 - EF 45-50%; global hypokinesis continue diuresis today suspect we are approaching euvolemia, however at discharge may need PO lasix 20mg for 2-3 more days, then would use lasix on prn basis thereafter (recommend daily weights at home) start coreg 3.125mg BID which will also help with HTN cont lisinopril 10mg BID (3) Pseudogout of hand: Plan: right CMC joint arthrocentesis -- fluid crystal analysis with pseudogout crystals. cont celebrex. norco q6h prn. IMPROVING pain/swelling. if possible, because of #2, would d/c celebrex given that the NSAIDs may cause fluid retention (4) Gram-negative bacteremia: Plan: 2nd pasteurella. see above. repeat blood cultures from time of admission negative. IV unasyn stopped today; transition to PO augmentin today. see #1 above. (5) Right arm cellulitis: Plan: 2nd pasteurella. resolved. (6) HTN (hypertension): Plan: Continue lisinopril 10mg BID (this was increased from daily to BID dosing this admission). Despite increasing the LEBRON her BPs remain high. Pain +/- anxiety may be causing BP lability. Add coreg 3.125mg BID for HTN + chronic systolic CHF. (7) Osteoporosis: Plan: Continue cholecalciferol supplementation (8) COPD (chronic obstructive pulmonary disease): Plan: Continue maintenance inhalers no exacerbation at this time dyspnea is due to #2, not COPD (9) Constipation: Plan: resolved had had no stools for 5+ days then developed severe diarrhea - c diff neg "diarrhea" again today but we attempted another c diff test today but stool was actually formed (10) Chronic kidney disease, stage IV (severe): Plan: baseline CrCL upper 20s recheck BMP in am for stability (11) DVT prophylaxis: Plan: heparin 5000 BID Plan: pt's son, Wisam (lives in [place]) -- updated extensively by phone and Tuesday PT, OT consults done - cleared for return home at the [facility] (independent living) care d/w social work this -- plan is for home with augmentin, NOT IV antibiotics hopefully can d/c home on Tuesday support given to patient today because of her anxiety and tearfulness needs better sleep - start melatonin 3mg hs Admission and Anticipated Discharge Date Admission Date: May 31, 2021 Subjective patient sitting in chair during the visit like previous visits she was tearful, very anxious, very emotional she said "I'm exhausted" -- she did not fall asleep until after 4am last night she simply can't sleep - anxious, thinking about her family she wishes that she could do the IV antibiotics and is disappointed it can't be done (by staying with her son or daughter locally) she had multiple episodes of loose stool this am some occasional nausea no abd pain dyspnea on exertion is improved, but not resolved no orthopnea overnight of note - echo done as outpatient in April 2021 showed EF 45-50% Review of Systems Review of Systems: gen - severe fatigue, eating fair (25% of meals) CV - no chest pain; no orthopnea pulm - no cough, no wheezing, no dyspnea at rest; LEBLANC - minimal, similar to at home GI - no pain Physical Exam Physical Exam: gen - tearful, very anxious and emotional, NAD neck - mild JVD present mouth - MMM; no thrush heart - RRR, s1 s2 lungs - mild bibasilar rales abd - soft, NT, ND, BS+, no HSM ext - trace edema b/l skin - resolution of right distal arm cellulitis; sutures intact right thumb; mild swelling on right thumb, no tenderness with active ROM of right thumb psych - a/o x 3, tearful Results & Data Results & Data ([facility]) Vital Signs (Past 12 Hours) Vital Signs Temp Pulse Resp BP Pulse Ox 06/07/21 21:39 67 182/82 H 97 06/07/21 15:48 36.6 C 69 18 176/74 H 95 Laboratory Results Laboratory Results - last 24 hr 06/07/21 06/07/21 06:04 15:15 Sodium 138 Potassium 4.1 Chloride 104 Carbon Dioxide 27 Anion Gap 7.0 BUN 31 H Creatinine 1.33 H Est Cr Clr Drug Dosing 28.5 Est GFR ( Amer) 41.6 Est GFR (Non-Af Amer) 35.9 BUN/Creatinine Ratio 23.5 H Glucose 94 Calcium 8.1 L Stl C. diff Tox B Gene TNP PG Care Time/CCT Total # of Minutes Spent Total Time Spent with Patient: Total time spent is greater than 50% in coordination of care (as documented) at patient's floor/unit and/or counseling patient: Coding Level of Care Code 55424 Subseq Hosp Care Lvl 3 Diagnoses Septic arthritis of hand, right M00.9 Pseudogout of hand M11.249 Gram-negative bacteremia R78.81 Right arm cellulitis L03.113 HTN (hypertension) I10 Osteoporosis M81.0 COPD (chronic obstructive pulmonary disease) J44.9 Constipation K59.00 Chronic kidney disease, stage IV (severe) N18.4 DVT prophylaxis Z29.9 Acute on chronic systolic heart failure I50.23
[2021-06-07] MEDS ORDERED: carvediloL 3.125 MG TAB PO ONE (22:30)
[2021-06-08 06:00] LABS: Hematocrit (blood only) 29.8 % (37-47); Hemoglobin 9.3 g/dL (12.0-16.0); Mean Corpuscular Hemoglobin 31.2 pg (25-34); Mean Corpuscular Hgb Conc 31.2 g/dL (32-36); Mean Platelet Volume 9.2 fL (7.4-10.4); Platelet Count 300 K/uL (130-400); RDW Coefficient of Variation 12.9 % (11.5-14.5); RDW Standard Deviation 47.1 fL (36.4-46.3); Red Blood Count 2.98 M/uL (4.2-5.4)
[2021-06-08] MEDS: AMOXICILLIN/CLAVULANATE 500 MG TAB PO SCH (08:46)
[2021-06-08] MEDS: ASPIRIN 81 MG ECTAB PO SCH (08:47)
[2021-06-08] MEDS: CELECOXIB 100 MG CAP PO SCH (08:50)
[2021-06-08] MEDS: CHOLECALCIFEROL 1,000 UNITS 25 MCG TAB PO SCH (08:51)
[2021-06-08] MEDS: HEPARIN SOD 5,000 UNIT/0.5 ML VIAL SQ SCH (08:52)
[2021-06-08] MEDS: FLUOCINONIDE 0.05% CR 15 GM TUBE EXT SCH (08:52)
[2021-06-08] MEDS: FLUTICASONE PROPIONATE NA SPR 16 GM BTL NAE SCH (08:52)
[2021-06-08] MEDS: CEROVITE ADV FORMULA TAB PO SCH (08:54)
[2021-06-08] MEDS: POLYETHYLENE (MIRALAX) 17 GM PACK PO SCH (08:54)
[2021-06-08] MEDS: lisinopril 10 MG TAB PO SCH (08:54)
[2021-06-08] MEDS: SENNA 8.6 MG TAB PO SCH (08:54)
[2021-06-08] MEDS: TRIAMCINOLONE ACET 0.1% CR 15 GM TUBE TOP SCH (08:55)
[2021-06-08] MEDS ORDERED: carvediloL 3.125 MG TAB PO SCH (09:00)
--- NOTE | 2021-06-08 09:19 | Orthopedic Progress Note ---
Date of Service June 08, 2021 Assessment & Plan (1) Septic arthritis of hand, right: Plan: Continue antibiotics and anti-inflammatories as ordered. Ice and elevate right hand as needed for pain and swelling. May leave incision open to air or cover with a light dressing or Band-Aid as necessary. Allowed for full range of motion of her right thumb as tolerated. Limit weightbearing through your right hand. No heavy pushing, pulling or lifting or gripping with right hand. Follow-up next week as scheduled for suture removal. Will cancel outpatient appointment scheduled tomorrow for a wound check. Patient is aware. Admission and Anticipated Discharge Date Admission Date: May 31, 2021 Subjective Patient sitting in chair at bedside. No complaints of pain in right thumb, but states that she does have some "soreness", but improves each day. No redness or warmth. No increased pain. Physical Exam Musculoskeletal: Right thumb incision clean, dry and intact. Sutures retained. No erythema right thumb. No effusion right thumb CMC joint, minimal tenderness, positive skin wrinkles right hand. No active drainage from right thumb incision. Tolerates full passive and active ROM right thumb without increased discomfort. Results & Data ([facility]) Vital Signs (Past 12 Hours) Vital Signs Temp Pulse Resp BP Pulse Ox 06/08/21 08:24 36.5 C 68 16 120/67 98 06/07/21 22:48 36.7 C 75 16 166/77 H 93 06/07/21 21:39 67 182/82 H 97 Laboratory Results 06/08/21 06/07/21 Range/Units 05:38 15:15 WBC 7.60 (4.8-10.8) K/uL RBC 2.98 L (4.2-5.4) M/uL Hgb 9.3 L (12.0-16.0) g/dL Hct 29.8 L (37-47) % MCV 100.0 (80-100) fL MCH 31.2 (25-34) pg MCHC 31.2 L (32-36) g/dL RDW Std Deviation 47.1 H (36.4-46.3) fL RDW Coeff of Stiven 12.9 (11.5-14.5) % Plt Count 300 (130-400) K/uL MPV 9.2 (7.4-10.4) fL Stl C. diff Tox B Gene TNP
[2021-06-08] MEDS: ADVANCED PROBIOTIC 1250 MG CAPSULE PO SCH (09:54)
[2021-06-08] MEDS: UMECLIDINIUM/VILANTEROL 62.5/25MCG 7 PUFFS/INHALER INH SCH (09:55)
--- NOTE | 2021-06-08 16:23 | Discharge Summary ---
Date of Service June 08, 2021 Admission HPI Per Admitting Provider Gayle Perkins is an 86 year old female who presents to the ER after her previous blood cultures are positive for Gram negative bacilli. She reports have pain in her right hand at the bottom of her thumb for the past 1.5 weeks. No trauma. Yesterday it suddenly became much more painful, swollen, warm and erythematous. She came to the ER last night and was diagnosed with cellulitis and given a dose of clindamycin and prescribed this to take at home. She reports her pain and swelling are worse than last night but mainly returned today as a call back due to positive blood cultures. She denies any other infective symptoms such as nasal congestion, sinus pain, shortness of breath, cough, chest pain, abdominal pain, diarrhea, flank pain or dysuria. In the ER WBC improved from 11.53 to 10.92. She was prescribed a dose of IV cefepime. She was referred to medicine for admission and ongoing management of bacteremia. Principal Diagnosis Pasteurella Bacteremia; Pseudogout; RUE Cellulitis Discharge Exam PHYSICAL EXAM General Appearance: WDWN in NAD who is A&O x 3 HEENT: Head is normocephalic/atraumatic; Hearing grossly intact; Mucous membranes moist Neck: Supple; Trachea midline; Neg JVD Heart: RRR with no M/G/R Lungs: CTA in all lung fuentes bilaterally; Respirations unlabored; Neg accessory muscle use Abdomen: Soft, non-tender, non-distended; Positive BS x 4 quadrants Extremities: Neg cyanosis or edema; incision to R thumb well approximated with suture intact; covered skin tear from previous IV site in R forearm Neurological: Speech clear; Gross motor/sensory function intact; Neg focal neurologic deficits Psychiatric: Appropriate mood/affect Skin: Normal Color; Warm/Dry Discharge Data Allergies Allergy/AdvReac Type Severity Reaction Status Date / Time latex Allergy Intermediate SEVERE Verified 05/31/21 19:12 ITCHING cephalexin Allergy Mild RASH Verified 05/31/21 19:12 Consultations 05/31/21 19:04 Consult Orthopedic Surgery Routine 05/31/21 19:59 ED Decision to Admit Stat 06/01/21 17:25 Consult Infectious Diseases Routine Procedures Performed Operation Date: 06/01/21 15:30 Actual Procedures p Incision and drainage right thumb, carpometacarpal joint, scaphotrapezial joint(Right) - Best Burnett MD Ordered Studies 06/01/21 16:00 US - OR guided needle placemen Stat Hospital Course (1) Septic arthritis of hand, right: - R thumb CMC joint. IMPROVING/RESOLVING - S/P I/D by Dr Burnett 06/01/21 -- Evidence of pseudogout -- Treatment for pseudogout and infectious etiology - BCx from several days ago with pasteurella thus her cat was the likely culprit for her right arm cellulitis. - Joint fluid culture also with pasteurella - [facility] ID consult completed - recommend IV Ertapenem x 4 weeks ([place]) vs Augmentin x 4 weeks - given limited support opted for oral regimen which was renally adjusted -- Multiple avenues discussed to try and coordinate IV but not possible - Continue probiotics - F/U with Dr. Burnett next week - appointment arranged (2) Pseudogout of hand: - Right CMC joint arthrocentesis -- fluid crystal analysis with pseudogout crystals. - cont Celebrex PRN x 7 more days (3) Gram-negative bacteremia: - Due to pasteurella - Repeat BCx after initiation of Abx negative (4) Right arm cellulitis: - Due to pasteurella - RESOLVED (5) Acute on chronic systolic heart failure: - Echo 04/2021 - EF 45-50%; global hypokinesis - Given a dose of Lasix in house but accurate I&Os not obtained to assess true efficacy - Could consider Lasix as needed based on daily weights and this can be disc ussed with PCP as patient reports episodes of Syncope - Coreg 3.125 mg BID was started which seems to have helped with BP control and can assist with mild EF reduction - discussed with patient to continue BP checks at home and to show logs to PCP (6) HTN (hypertension): - Continue Lisinopril at home dosing - she states her BPs are around 140 systolic at home and add addition Coreg to be monitored for continuation vs titration - Was originally on Metoprolol but was D/Cd in the setting of syncope (7) Osteoporosis: - Continue cholecalciferol supplementation (8) COPD (chronic obstructive pulmonary disease): - Stable; no exacerbation at this time - Continue maintenance inhalers (9) Constipation: - RESOLVED - Loose stool while on Abx - c diff negative; having formed stool again (10) Chronic kidney disease, stage IV (severe): - baseline CrCL upper 20s (11) DVT prophylaxis: heparin 5000 BID - Lives in independent living at [facility] - Needs PCP F/U and Orthopedic F/U Total Time Total Time Spent Total Time Spent (In Minutes): Greater than 30 minutes Discharge Plan Discharge Items Patient Disposition: Home - Self-Care Reason For Visit: BACTEREMIA, CELLULITIS Discharge Diagnosis: Skin Infection with Bacteremia Activity: Resume your previous activity Weightbearing: Right partial Non-emergency contact: Surgeon Call non-emergency contact if: you have any medication questions, your pain is not controlled and your temperature is above 101 Follow-up/Referrals: Best Sow MD [Primary Care Provider] - 06/16/21 3:15 pm (Please arrange follow-up in 7-[address] Sow no PAs/CRNPs) Best Burnett MD [Surgeon] - 06/16/21 10:30 am Diet: Regular Addtl Attending Provider Instructions: Right Hand/Arm Infection/Positive Blood Culture: - You had this incised and drained by Dr. Burnett on 01 June -- This revealed you had pseudogout and the organism pasteurella multocida which was also in a blood culture - You had repeat blood cultures completed which were negative for further infection but will need to continue antibiotics - You initially had IV antibiotics but were switched to Augmentin twice a day. This was started on 07 June. The infectious disease doctors would like to continue the antibiotics for 4 weeks from that date. You will be on Augmentin until 05 July. - It may be worth buying an over the counter probiotic to help keep good bacteria in your GI tract while taking antibiotics. Any brand of probiotics would be sufficient. And can also eat yogurt to help keep good gut cam - Can continue Celebrex (anti-inflammatory) to help with the pain. You can use these as needed and will follow-up with orthopedics next week - Plan for follow-up with Dr. Burnett on 16 June at 1030. They do not need to see you tomorrow as they saw you in the hospital today. High Blood Pressure: - While in the hospital your blood pressure was running high. - It has improved here in the hospital. With your history of Syncope we would not want to overcorrect your blood pressure - Recommend to continue tracking your blood pressure at home to show to Dr. Sow. - You were started on Coreg (Carvedilol) twice a day at a low dose. Depending on how your blood pressure goes, your family doctor may want to continue this or get rid of it if your blood pressures are better Addtl Quality Control Checker Provider Instructions: Able to use hand for light daily activities and to use a walker as needed Ice to right hand as needed for pain/swelling. Elevate right hand above your heart to relieve pain/swelling. Do frequent movements of your fingers, wrist and forearm to prevent stiffness. Call Dr. Burnett's office at [phone] with any increased pain, swelling, or drainage from your incision. Follow up with Dr. Burnett's office early next week as scheduled. Pending Studies at Discharge: No Stand-Alone Forms: [facility], Smoking Cessation Medications and DC Order Prescriptions: New amoxicillin-pot clavulanate 500-125 mg Tablet 1 tab PO BIDM 28 Days Qty: 56 RF: 0 carvedilol 3.125 mg Tablet 3.125 mg PO BID 30 Days Qty: 60 RF: 0 celecoxib [Celebrex] 100 mg Capsule 100 mg PO BID PRN (Reason: pain) 7 Days Qty: 14 RF: 0 Continued diclofenac sodium 1 % gel See Rx Instructions .ROUTE .COMPLEX Qty: 300 RF: 1 fluocinonide 0.05 % cream 1 applic topical DAILY RF: 0 triamcinolone acetonide 0.1 % cream 1 applic topical UD RF: 0 gabapentin 100 mg capsule 200 mg PO HS Qty: 60 RF: 5 fluticasone propionate 50 mcg/actuation spray,suspension 1 - 2 spray intranasal DAILY Qty: 18.2 RF: 5 lisinopril 20 mg tablet 10 mg PO DAILY Qty: 45 RF: 3 cholecalciferol (vitamin D3) 125 mcg (5,000 unit) tablet 125 mcg PO DAILY RF: 0 aspirin 81 mg tablet,delayed release (DR/EC) 81 mg PO 3XWK RF: 0 albuterol sulfate 90 mcg/actuation HFA aerosol inhaler 2 puff inhalation Q4H PRN (Reason: Shortness Of Breath) Qty: 1 RF: 0 vklk-gdudja-axjmzvuz-D3-C-Mn 500-400-667 mg-mg-unit capsule 2 cap PO DAILY RF: 0 nystatin 100,000 unit/gram cream 1 applic topical DAILY PRN (Reason: fungal) RF: 0 PreserVision AREDS 14,[id number] fcpa-id-lshn capsule 1 cap PO BID RF: 0 Anoro Ellipta 62.5-25 mcg/actuation blister with device 1 ea inhalation DAILY RF: 0 Discontinued clindamycin HCl 150 mg capsule 150 mg PO Q6H 7 Days Qty: 28 RF: 0 Discharge Orders: Discharge Order (Routine); Ordered 06/08/21 Ordered By: Estela Purdy/Other Patient Handouts: ED Skin Avulsion Admission Data Admit Date/Time: 05/31/21 20:05 Attending Provider: Jeff White Admit Provider: Lyle Palmer Primary Care Provider: Best Sow Other Providers: Robson Whitten ; Lyle Palmer ; Anupam Johnson ; Gerard Cruz ; Franck Moore I. ; Antonino Penaloza II ; Juanita Allen ; Petar Arcos Other Interventions: Discharge Summary Assessment (RN) Last Done: 06/08/21 14:03 Supervising Physician Co-Signing Physician Notes Attending note: patient seen and examined with Estela Burns PA-C. I agree with her discharge summary. I personally reviewed the labs and imaging findings. patient doing well, minimal pain in hand, no redness, no fevers appreciate ID recommendation, cannot arrange for Ertapenem, will use Augmentin, will need 4 weeks will also treat pseudogout with anti-inflammatories - Septic arthritis in setting of cat bite, treated with Ertapenem, change to Augmentin on discharge follow up with Dr. Burnett Coding Level of Care Code D/C DAY MANAGEMENT >30 MINS Diagnoses Septic arthritis of hand, right M00.9 Acute on chronic systolic heart failure I50.23 Pseudogout of hand M11.249 Gram-negative bacteremia R78.81 Right arm cellulitis L03.113 HTN (hypertension) I10 Osteoporosis M81.0 COPD (chronic obstructive pulmonary disease) J44.9 Constipation K59.00 Chronic kidney disease, stage IV (severe) N18.4 DVT prophylaxis Z29.9
== END 2021-06-08 15:26 | disposition home or self-care (01) | DRG 506 ==
LOC: ED 17:38 → SUATTDRO 20:05 → 3W 20:05

== ENCOUNTER 2021-10-06 14:39 | Inpatient (IN) ==
--- NOTE | 2021-10-06 15:11 | Emergency Department Note ---
Impression & Plan Hypoxia, COVID-19, Dehydration, Syncope ED Provider Note NAME: DMITRY RODRIGUEZ AGE: 86 SEX: F : 1935 ARRIVES VIA: Ambulance INFORMANT: Patient, ED PROVIDER(S): Candelario Krishnamurthy MD Chief Complaint: Syncope HPI: Patient does present from home due to concern for syncope. The patient states that she got very lightheaded lowered her self to the floor. The patient was seen by EMS and subsequently was going to refuse EMS transport when the patient had a second syncopal event lasting approximately 1 minute in duration. No reported seizure activity or trauma. Patient states that she did eat breakfast this morning. The patient states that she feels better compared to before. Patient denies any current pain. Patient had some nausea at the time of the incident but states that this has resolved. The patient reportedly was satting 90% on room air and was placed on supplemental nasal cannula oxygen. P atient denies any chest pains or shortness of breath. Patient does have a history of COPD and prior tobacco use but not many years. Patient did have a heart monitor report back in March of last year. Patient reportedly had no significant pauses complex arrhythmias or AV block noted patient did have an echocardiogram completed in April of last year which showed borderline LV ejection fraction with mild concentric LVH. Patient is vaccinated for COVID. ROS: See HPI for pertinent positives and negatives. A total of 10 systems were reviewed and otherwise negative. Past medical history: See below Surgical history: See below Social history: See below Physical Exam: GENERAL: NAD, wearing glasses, wearing a mask, non-toxic. EYE EXAM: Normal conjunctiva. PERRL, no anisocoria and EOM's grossly intact w/o pain. NECK: Supple, no nuchal rigidity, no adenopathy, non-tender. No signs of mening ismus. LUNGS: Clear to auscultation. Normal chest wall mechanics. HEART: NSR, no MRG. ABDOMEN: Abdomen soft, non-tender, normo-active bowel sounds, no masses, no rebound or guarding. BACK: No CVA TTP. SKIN: No rashes and no bruising. UPPER EXTREMITIES: Upper extremities are grossly normal. LOWER EXTREMITIES: Grossly normal, no edema. NEURO EXAM: A&O x3, cranial nerves II-XII grossly intact, normal speech, moves all 4 extremities on command w/o issue. Differential diagnoses: Vasovagal event, dehydration, infection, hypoglycemia, electrolyte abnormalities, cardiac sources, intracerebral event, pulmonary embolism, seizure, toxicologic, neurologic, as well as other pathologies. Course: Patient was seen and evaluated the bedside. Full history physical exam was performed. EKG interpreted by me Sinus bradycardia, rate of 59, normal intervals, normal axis, T wave flattening in the lateral and high lateral leads. No significant change from comparison EKG May 31, 2021 for Imaging Studies: See Below Cardiac monitoring: An order was placed for continuous cardiac monitoring. The monitor shows a rate of 62 with sinus rhythm. MDM: Patient was seen due to concern for syncope. Patient has a normal white count. The patient's hemoglobin is slightly low at 11.3. Platelet count is unremarkable. Kidney function with a creatinine 1.3. Patient may have some dehydration. Troponin is not detectable. Patient did desat while sleeping into the low 80s. The patient was tested for COVID as the patient did have a viral appearing and pneumonia on her chest x-ray. Patient is COVID-positive. Dexamethasone ordered. Given the patient's 2 episodes of syncope, dehydration and COVID illness I did speak with the on-call hospitalist MONIQUE Thompson and the patient was admitted by Dr. Kevin. Patient is vaccinated for COVID- 19 Past Med/Surg History Medical History ARF (acute renal failure) Arthritis, multiple joint involvement Bacteremia Balance problems Bradycardia Cellulitis COPD (chronic obstructive pulmonary disease) Dyspnea on exertion HTN (hypertension) Hypercholesterolemia Impaired fasting glucose Nocturia Osteoporosis Right arm cellulitis Secondary hypothyroidism Syncope Syncope and collapse (05/15/14) Syncope and collapse UTI (urinary tract infection) Surgical History H/O: hysterectomy History of breast biopsy History of bunionectomy History of carpal tunnel surgery History of inguinal hernia repair History of myringotomy History of rotator cuff surgery Jul 2011--Dr. Whitten Hx of adenoidectomy Hx of tonsillectomy S/P appendectomy S/P cholecystectomy Family History Mother Alzheimer disease Family/Other No problems noted. Father Emphysema, unspecified Grandfather (Maternal) Colorectal cancer Uncle Prostate cancer Denies family history of Ovarian cancer Coronary heart disease Heart disease Myocardial infarction Breast cancer Social History Smoking Status: Never smoker Tobacco Type: Cigarettes Age Started Using Tobacco: 23; Age Quit Using Tobacco: 61; Number of Years Since Quit: 30; Second Hand Exposure: No; Hx Alcohol Use: Yes Alcohol type: wine Alcohol Intake Frequency Comment: social Hx Substance Use: No Preferred Language: French Communication Ability: Effective Visual Impairment: Limited Hearing Ability: Use of Hearing Aid Armature Inspector Required: No Beliefs That Will Affect Care: None marital status: Current Living Situation: Alone Current Living Situation Comment: independent living current occupational 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[employer] How many Children do You have: 3 Feels Safe at Home: Yes Childhood Exposure to Second-Hand Smoke: Yes caffeine: Yes Dental Care, Regularly: No Physical Activity Frequency: Does not Exercise Seatbelt Use: always Sunscreen Use: No Assistive Devices: Cane, Denture - Upper, Denture - Lower, Glasses and Hearing Aid - Bilateral Allergies Allergies Allergy/AdvReac Type Severity Reaction Status Date / Time latex Allergy Intermediate SEVERE Verified 10/06/21 16:03 ITCHING cephalexin Allergy Mild RASH Verified 10/06/21 16:03 Home Meds Home Medications Medication Instructions Recorded Confirmed cholecalciferol (vitamin D3) 125 125 mcg PO DAILY tab 10/02/19 10/06/21 mcg (5,000 unit) tablet aspirin 81 mg tablet,delayed 81 mg PO 3XWK tab 04/03/20 10/06/21 release nystatin 100,000 unit/gram topical 1 applic TOPICAL DAILY PRN 12/23/20 10/06/21 cream fluocinonide 0.05 % topical cream 1 applic TOPICAL DAILY g 01/19/21 10/06/21 triamcinolone acetonide 0.1 % 1 applic TOPICAL DIRECTED PRN 01/19/21 10/06/21 topical cream albuterol sulfate 90 mcg/actuation 2 puff INHALATION Q4H PRN #1 g 04/10/21 10/06/21 aerosol inhaler vitamins A,C,L-cefq-wqmxam 14,320 1 cap PO BID 05/12/21 10/06/21 unit-226 mg-200 unit capsule (PreserVision AREDS) calcium carbonate 600 mg calcium 1,200 mg PO DAILY tab 06/16/21 10/06/21 (1,500 mg) tablet (Calcium) lactobacillus combination no.4 3 6,000 mmu cells PO DAILY cap 06/16/21 10/06/21 billion cell capsule (Probiotic) lisinopril 20 mg tablet 20 mg PO DAILY tab 08/04/21 10/06/21 diclofenac sodium 1 % topical gel 2 g TOPICAL QID PRN 10/06/21 10/06/21 Previous Rx's Medication Instructions Recorded fluticasone propionate 50 1 - 2 spray INTRANASAL DAILY #18.2 04/03/21 mcg/actuation nasal ml spray,suspension carvedilol 3.125 mg tablet 3.125 mg PO BID 90 Days #180 tab 07/27/21 umeclidinium 62.5 mcg-vilanterol 1 ea INHALATION DAILY #60 ea 09/24/21 25 mcg/actuation powdr for inhalation (Anoro Ellipta) gabapentin 100 mg capsule 200 mg PO HS #60 cap 10/06/21 Results & Data (ED) Vital Signs Vital Signs - 24 hr 10/06/21 14:58 10/06/21 15:09 10/06/21 15:10 Temperature 36.5 C Temperature Source Oral Pulse Rate 56 L 57 L 58 L Pulse Rate from SpO2 Sensor Pulse Rhythm Regular Pulse Strength Normal Respiratory Rate 12 22 18 Respiratory Effort / Characteristics Non-Labored Spontaneous Respiratory Depth Normal Respiratory Pattern Regular Blood Pressure 119/71 Blood Pressure Mean 87 Blood Pressure Position Lying Pulse Oximetry 100 96 96 Oxygen Delivery Method Nasal Cannula Nasal Cannula Nasal Cannula Oxygen Flow Rate 2 2 2 Sepsis Recent Fever Within 48 Hours No Sepsis New/Unexplained Change in Mental Status N/A Sepsis Action Taken by Nursing No Action Required 10/06/21 15:20 10/06/21 15:30 10/06/21 15:40 Temperature Temperature Source Pulse Rate 61 63 65 Pulse Rate from SpO2 Sensor Pulse Rhythm Pulse Strength Respiratory Rate 24 23 22 Respiratory Effort / Characteristics Respiratory Depth Respiratory Pattern Blood Pressure 132/56 L Blood Pressure Mean 81 Blood Pressure Position Pulse Oximetry 94 94 Oxygen Delivery Method Room Air Room Air Oxygen Flow Rate Sepsis Recent Fever Within 48 Hours Sepsis New/Unexplained Change in Mental Status Sepsis Action Taken by Nursing 10/06/21 15:50 10/06/21 15:55 10/06/21 16:00 Temperature Temperature Source Pulse Rate 67 64 72 Pulse Rate from SpO2 Sensor Pulse Rhythm Pulse Strength Respiratory Rate 22 21 20 Respiratory Effort / Characteristics Respiratory Depth Respiratory Pattern Blood Pressure Blood Pressure Mean Blood Pressure Position Pulse Oximetry 92 94 94 Oxygen Delivery Method Room Air Room Air Room Air Oxygen Flow Rate Sepsis Recent Fever Within 48 Hours Sepsis New/Unexplained Change in Mental Status Sepsis Action Taken by Nursing 10/06/21 16:10 10/06/21 16:20 10/06/21 16:30 Temperature Temperature Source Pulse Rate 63 63 64 Pulse Rate from SpO2 Sensor Pulse Rhythm Pulse Strength Respiratory Rate 26 H 20 22 Respiratory Effort / Characteristics Respiratory Depth Respiratory Pattern Blood Pressure Blood Pressure Mean Blood Pressure Position Pulse Oximetry 92 92 93 Oxygen Delivery Method Room Air Room Air Room Air Oxygen Flow Rate Sepsis Recent Fever Within 48 Hours Sepsis New/Unexplained Change in Mental Status Sepsis Action Taken by Nursing 10/06/21 16:40 10/06/21 16:50 10/06/21 17:00 Temperature Temperature Source Pulse Rate 66 64 64 Pulse Rate from SpO2 Sensor Pulse Rhythm Pulse Strength Respiratory Rate 26 H 16 23 Respiratory Effort / Characteristics Respiratory Depth Respiratory Pattern Blood Pressure Blood Pressure Mean Blood Pressure Position Pulse Oximetry 92 92 93 Oxygen Delivery Method Room Air Room Air Room Air Oxygen Flow Rate Sepsis Recent Fever Within 48 Hours Sepsis New/Unexplained Change in Mental Status Sepsis Action Taken by Nursing 10/06/21 17:10 10/06/21 17:15 10/06/21 17:20 Temperature Temperature Source Pulse Rate 64 67 65 Pulse Rate from SpO2 Sensor 66 65 Pulse Rhythm Pulse Strength Respiratory Rate 17 23 23 Respiratory Effort / Characteristics Respiratory Depth Respiratory Pattern Blood Pressure 174/71 H 174/71 H Blood Pressure Mean 105 105 Blood Pressure Position Pulse Oximetry 92 86 L 93 Oxygen Delivery Method Room Air Nasal Cannula Oxygen Flow Rate 2 Sepsis Recent Fever Within 48 Hours Sepsis New/Unexplained Change in Mental Status Sepsis Action Taken by Nursing 10/06/21 17:30 10/06/21 17:40 10/06/21 17:50 Temperature Temperature Source Pulse Rate 65 65 65 Pulse Rate from SpO2 Sensor 66 65 65 Pulse Rhythm Pulse Strength Respiratory Rate 24 21 22 Respiratory Effort / Characteristics Respiratory Depth Respiratory Pattern Blood Pressure Blood Pressure Mean Blood Pressure Position Pulse Oximetry 96 95 98 Oxygen Delivery Method Nasal Cannula Nasal Cannula Nasal Cannula Oxygen Flow Rate 2 2 2 Sepsis Recent Fever Within 48 Hours Sepsis New/Unexplained Change in Mental Status Sepsis Action Taken by Nursing 10/06/21 18:01 10/06/21 18:10 10/06/21 18:20 Temperature Temperature Source Pulse Rate 88 72 73 Pulse Rate from SpO2 Sensor 71 74 Pulse Rhythm Pulse Strength Respiratory Rate 18 22 21 Respiratory Effort / Characteristics Respiratory Depth Respiratory Pattern Blood Pressure Blood Pressure Mean Blood Pressure Position Pulse Oximetry 97 98 Oxygen Delivery Method Nasal Cannula Nasal Cannula Oxygen Flow Rate 2 2 Sepsis Recent Fever Within 48 Hours Sepsis New/Unexplained Change in Mental Status Sepsis Action Taken by Nursing 10/06/21 18:30 Temperature Temperature Source Pulse Rate 72 Pulse Rate from SpO2 Sensor 69 Pulse Rhythm Pulse Strength Respiratory Rate 27 H Respiratory Effort / Characteristics Respiratory Depth Respiratory Pattern Blood Pressure 190/88 H Blood Pressure Mean 122 Blood Pressure Position Pulse Oximetry 92 Oxygen Delivery Method Room Air Oxygen Flow Rate Sepsis Recent Fever Within 48 Hours Sepsis New/Unexplained Change in Mental Status Sepsis Action Taken by Care Home Medications Current Medication List: was personally reviewed by me Laboratory Data Attestation: I reviewed the patient's lab results. Result diagrams: 10/06/21 15:44 10/06/21 15:44 Lab Results 10/06/21 10/06/21 10/06/21 Range/Units 15:44 15:44 15:44 WBC 8.78 (4.8-10.8) K/uL RBC 3.70 L (4.2-5.4) M/uL Hgb 11.3 L (12.0-16.0) g/dL Hct 36.1 L (37-47) % MCV 97.6 (80-100) fL MCH 30.5 (25-34) pg MCHC 31.3 L (32-36) g/dL RDW Std Deviation 48.8 H (36.4-46.3) fL RDW Coeff of Stiven 13.7 (11.5-14.5) % Plt Count 255 (130-400) K/uL MPV 9.3 (7.4-10.4) fL Immature Gran % (Auto) 1.8 % Neut % (Auto) 79.0 % Lymph % (Auto) 11.3 % [place] % (Auto) 4.9 % Eos % (Auto) 2.8 % Baso % (Auto) 0.2 % Neut # (Auto) 6.93 H (1.4-6.5) K/uL Lymph # (Auto) 0.99 L (1.2-3.4) K/uL [place] # (Auto) 0.43 (0.11-0.59) K/uL Eos # (Auto) 0.25 (0-0.5) K/uL Baso # (Auto) 0.02 (0-0.2) K/uL Immature Gran # (Auto) 0.16 H (0.00-0.02) K/uL Sodium 136 (136-145) mmol/L Potassium 4.8 (3.5-5.1) mmol/L Chloride 103 (98-107) mmol/L Carbon Dioxide 26 (21-32) mmol/L Anion Gap 7 (3-11) BUN 36 H (6-23) mg/dl Creatinine 1.36 H (0.6-1.2) mg/dl Est Cr Clr Drug Dosing 27.2 ml/min Est GFR ( Amer) 40.5 ml/min Est GFR (Non-Af Amer) 34.9 ml/min BUN/Creatinine Ratio 26.5 H (10-20) Glucose 128 H (70-99) mg/dl POC Glucose 123 H (70-99) mg/dl Calcium 8.9 (8.5-10.1) mg/dl Total Bilirubin 0.4 (0.2-1.0) mg/dl AST 23 (13-39) U/L ALT 11 (7-52) U/L Alkaline Phosphatase 64 (34-104) U/L Troponin I 0.03 (0-0.04) ng/ml Total Protein 6.9 (6.0-8.3) gm/dl Albumin 3.4 (3.4-5.0) gm/dl Globulin 3.5 (2.5-4.0) gm/dl Albumin/Globulin Ratio 1.0 (0.9-2) TSH 5.499 H (0.300-4.500) uIu/ml Free T4 (0.61-1.60) ng/dl SARS-CoV-2, RNA, NAAT (NEGATIVE) 10/06/21 10/06/21 Range/Units 15:44 17:22 WBC (4.8-10.8) K/uL RBC (4.2-5.4) M/uL Hgb (12.0-16.0) g/dL Hct (37-47) % MCV (80-100) fL MCH (25-34) pg MCHC (32-36) g/dL RDW Std Deviation (36.4-46.3) fL RDW Coeff of Stiven (11.5-14.5) % Plt Count (130-400) K/uL MPV (7.4-10.4) fL Immature Gran % (Auto) % Neut % (Auto) % Lymph % (Auto) % [place] % (Auto) % Eos % (Auto) % Baso % (Auto) % Neut # (Auto) (1.4-6.5) K/uL Lymph # (Auto) (1.2-3.4) K/uL [place] # (Auto) (0.11-0.59) K/uL Eos # (Auto) (0-0.5) K/uL Baso # (Auto) (0-0.2) K/uL Immature Gran # (Auto) (0.00-0.02) K/uL Sodium (136-145) mmol/L Potassium (3.5-5.1) mmol/L Chloride (98-107) mmol/L Carbon Dioxide (21-32) mmol/L Anion Gap (3-11) BUN (6-23) mg/dl Creatinine (0.6-1.2) mg/dl Est Cr Clr Drug Dosing ml/min Est GFR ( Amer) ml/min Est GFR (Non-Af Amer) ml/min BUN/Creatinine Ratio (10-20) Glucose (70-99) mg/dl POC Glucose (70-99) mg/dl Calcium (8.5-10.1) mg/dl Total Bilirubin (0.2-1.0) mg/dl AST (13-39) U/L ALT (7-52) U/L Alkaline Phosphatase (34-104) U/L Troponin I (0-0.04) ng/ml Total Protein (6.0-8.3) gm/dl Albumin (3.4-5.0) gm/dl Globulin (2.5-4.0) gm/dl Albumin/Globulin Ratio (0.9-2) TSH (0.300-4.500) uIu/ml Free T4 0.94 (0.61-1.60) ng/dl SARS-CoV-2, RNA, NAAT POSITIVE A* (NEGATIVE) Imaging Data Radiologist's Impression: Chest X-Ray 10/06/21 15:38 XR chest 1V portable CLINICAL HISTORY: weakness. Evaluate cardiopulmonary status COMPARISON STUDY: 06/05/2021 TECHNIQUE: 1 view of the chest FINDINGS: Single frontal view of the chest demonstrates the heart size to be mildly enlarged. There is evidence for underlying COPD. Patchy interstitial and alveo lar opacities are present bilaterally. The findings are most characteristic of a viral type pneumonitis. Covid 19 pneumonia should be excluded. There is no evidence for pleural effusion. There is no evidence for vascular congestion. There is no acute osseous pathology. IMPRESSION: Patchy interstitial and alveolar opacities bilaterally characteristic of a viral type pneumonitis and probable early Covid 19 pneumonia. Underlying COPD. ACT 112: Negative or not required by law. Electronically signed by: Josep Limon M.D. 10/06/2021 4:09 PM Discharge Plan Visit Data Chief Complaint: Syncope ED Provider: Candelario Krishnamurthy Discharge Problem: Hypoxia, COVID-19, Dehydration, Syncope Patient Disposition: Admitted As Inpatient Forms Stand Alone Forms: [facility] Prescriptions Prescriptions: No Action fluocinonide 0.05 % cream 1 applic topical DAILY RF: 0 triamcinolone acetonide 0.1 % cream 1 applic topical DIRECTED PRN (Reason: Skin Irritation) RF: 0 fluticasone propionate 50 mcg/actuation spray,suspension 1 - 2 spray intranasal DAILY Qty: 18.2 RF: 5 carvedilol 3.125 mg tablet 3.125 mg PO BID 90 Days Qty: 180 RF: 1 Anoro Ellipta 62.5-25 mcg/actuation blister with device 1 ea inhalation DAILY Qty: 60 RF: 5 gabapentin 100 mg capsule 200 mg PO HS Qty: 60 RF: 5 cholecalciferol (vitamin D3) 125 mcg (5,000 unit) tablet 125 mcg PO DAILY RF: 0 aspirin 81 mg tablet,delayed release (DR/EC) 81 mg PO 3XWK RF: 0 albuterol sulfate 90 mcg/actuation HFA aerosol inhaler 2 puff inhalation Q4H PRN (Reason: Shortness Of Breath) Qty: 1 RF: 0 calcium carbonate [Calcium 600] 600 mg calcium (1,500 mg) tablet 1,200 mg PO DAILY RF: 0 Probiotic 3 billion cell capsule 6,000 mmu cells PO DAILY RF: 0 lisinopril 20 mg tablet 20 mg PO DAILY RF: 0 nystatin 100,000 unit/gram cream 1 applic topical DAILY PRN (Reason: fungal) RF: 0 PreserVision AREDS [id number],[id number] capsule 1 cap PO BID RF: 0 diclofenac sodium 1 % gel 2 g topical QID PRN (Reason: Pain) RF: 0 Referrals Referrals: Best Sow MD [Primary Care Provider] -
[2021-10-06 16:01] LABS: Basophils # (auto) 0.02 K/uL (0-0.2); Basophils % (auto) 0.2 %; Eosinophils # (auto) 0.25 K/uL (0-0.5); Eosinophils % (auto) 2.8 %; Hematocrit (blood only) 36.1 % (37-47); Hemoglobin 11.3 g/dL (12.0-16.0); Immature Granulocytes # (auto) 0.16 K/uL (0.00-0.02); Immature Granulocytes % (auto) 1.8 %; Lymphocytes # (auto) 0.99 K/uL (1.2-3.4); Lymphocytes % (auto) 11.3 %; Mean Corpuscular Hemoglobin 30.5 pg (25-34); Mean Corpuscular Hgb Conc 31.3 g/dL (32-36); Mean Corpuscular Volume 97.6 fL (80-100); Mean Platelet Volume 9.3 fL (7.4-10.4); Monocytes # (auto) 0.43 K/uL (0.11-0.59); Monocytes % (auto) 4.9 %; Neutrophils # (auto) 6.93 K/uL (1.4-6.5); Platelet Count 255 K/uL (130-400); RDW Coefficient of Variation 13.7 % (11.5-14.5); RDW Standard Deviation 48.8 fL (36.4-46.3); White Blood Count 8.78 K/uL (4.8-10.8)
--- NOTE | 2021-10-06 16:10 | XRay Report ---
XR chest 1V portable CLINICAL HISTORY: weakness. Evaluate cardiopulmonary status COMPARISON STUDY: 06/05/2021 TECHNIQUE: 1 view of the chest FINDINGS: Single frontal view of the chest demonstrates the heart size to be mildly enlarged. There is evidence for underlying COPD. Patchy interstitial and alveolar opacities are present bilaterally. The finding s are most characteristic of a viral type pneumonitis. Covid 19 pneumonia should be excluded. There i s no evidence for pleural effusion. There is no evidence for vascular congestion. There is no acute o sseous pathology. IMPRESSION: Patchy interstitial and alveolar opacities bilaterally characteristic of a viral type pne umonitis and probable early Covid 19 pneumonia. Underlying COPD. ACT 112: Negative or not required by law. Electronically signed by: Josep Limon M.D. 10/06/2021 4:09 PM
[2021-10-06 16:33] LABS: Troponin I 0.03 ng/ml (0-0.04)
[2021-10-06 16:47] LABS: Thyroid Stimulating Hormone 5.499 uIu/ml (0.300-4.500)
[2021-10-06 16:51] LABS: Albumin Level 3.4 gm/dl (3.4-5.0); BUN Creatinine Ratio 26.5 (10-20); Bilirubin,Total 0.4 mg/dl (0.2-1.0); Calcium 8.9 mg/dl (8.5-10.1); Creatinine Clr Calc Pharmacy 27.2 ml/min; Est GFR (African American) 40.5 ml/min; Est GFR (Non-African American) 34.9 ml/min; Globulin 3.5 gm/dl (2.5-4.0); Potassium 4.8 mmol/L (3.5-5.1); Total Protein 6.9 gm/dl (6.0-8.3)
[2021-10-06] MEDS ORDERED: dexAMETHasone**PF** 10 MG/ML VIAL IV ONE (18:07)
--- NOTE | 2021-10-06 18:53 | History & Physical Report ---
Date of Service October 06, 2021 Assessment & Plan (1) Syncope: Plan: Patient with multiple episodes of syncope in the past- she has no structural heart disease and no continuous or frequent dysrythmias noted on her holter - Today's eppisode is possibly related to her UTI - She reports maintaining adequate hydration secondary to her feeling like she had a UTI - Glucose normal and she did eat this morning - Is on LEBRON inhibitor but is Hypertensive in her EMD stay - NO presyncopal symptoms noted (2) COVID-19: Plan: Incidental finding upon admission- patient is asymptomatic - she is vaccinated w ithout booster - Remdesivir- Follow renal function - Continue Decadron - CRP/LDH/Ferritin/BNP pending - Supportive care at this time - Oxygenation 88=92%- NC/HFNC/CPAP/BIPAP/INTUBATION - Self rotation and proning (3) COPD (chronic obstructive pulmonary disease): Plan: She has mild COPD with infrequent hospitalizations and/or exacerbations - PFTs not available - Continue her Anoro and her Albuterol - Not likely an exacerbation at this time - Treat underlying COVID as above (4) CKD (chronic kidney disease), stage III: Plan: CKD III- Baseline RESIDENT CARE PROVIDER 1.34-1.4 -Likely secondary to hypertension - Hold LEBRON at this time (5) Arthritis, multiple joint involvement: Plan: Continue her Gabapentin (6) Abnormal TSH: Plan: Some smattering through the chart of a secondary hypothyroidism TSH at 5.4 Free T4 0.94 - no acute intervention needed History of Present Illness Primary Care Provider: Best Sow MD 86 YOF with past medical history of: CKD II, COPD, HTN, HLD, Impaired fasting glucose, arthritis, syncope, osteopenia, HFrEF. Patient comes to the hospital today for 2 syncope episodes that occurred this morning. Patient lives by herself in an independent living facility. She was standing by her laundry room this morning and woke up on the floor EMS came and she originally did not want to come and then had another syncopal episode to where she was reportedly unresponsive with delayed awakening. The patient states that she has been feeling generally well except for painful and frequent urination, which she was started on antibiotic by her PCP- she was originally started on therapy on Tuesday but was unable to provide urine sample. She did urinate yesterday and provided her sample at that time, her culture from yesterday is showing GNB she will be started on Rocephin. Patient was also given a COVID test for admission and was noted to be positive. She reports no symptoms. She does have a history of COPD, was noted to have decreased SPo2 in the EMD to 88 so was placed on 2LNC and started on Decadron. Patient is unsure of where she may have came in contact with the virus so she is unsure of possible day of illness. Will send CRP, LDH, Ferritin for inflammatory markers, we did discuss therapy to include Remdesivir, steroids, and self rotation therapy. Will have to watch her renal function with remdesivir. Patient will be admitted to medical telemetry, follow her inflammatory markers, schedule her albuterol for 24 hours, started on Rocephin for UTI. For her syncopal episode the patient has had this before over the summer- she did have a Holter monitor in March that was unrevealing- mostly NSR with PAC and occasional PVC with NSR; and an ECHO done. Her ECHO is borderline EF 45-50% wtih mild LVH and left atrial dilation. Normal valve function. She did not report hitting anything and she has no tenderness to any of her joints. She has no cervical pain and is with full range of motion, stable pelvis and full rom. She also has no tenderness to her head with palpation. She was also treated for septic arthritis of her thumb in June 16 that was positive for pasteurella. She did have and I&D completed at that time. Allergies Allergy/AdvReac Type Severity Reaction Status Date / Time latex Allergy Intermediate SEVERE Verified 10/06/21 16:03 ITCHING cephalexin Allergy Mild RASH Verified 10/06/21 16:03 Home Medications Medication Instructions Recorded Confirmed Type cholecalciferol (vitamin D3) 125 125 mcg PO DAILY tab 10/02/19 10/06/21 History mcg (5,000 unit) tablet aspirin 81 mg tablet,delayed 81 mg PO 3XWK tab 04/03/20 10/06/21 History release nystatin 100,000 unit/gram topical 1 applic TOPICAL DAILY PRN 12/23/20 10/06/21 History cream fluocinonide 0.05 % topical cream 1 applic TOPICAL DAILY g 01/19/21 10/06/21 History triamcinolone acetonide 0.1 % 1 applic TOPICAL DIRECTED PRN 01/19/21 10/06/21 History topical cream fluticasone propionate 50 1 - 2 spray INTRANASAL DAILY #18.2 04/03/21 10/06/21 Rx mcg/actuation nasal ml spray,suspension albuterol sulfate 90 mcg/actuation 2 puff INHALATION Q4H PRN #1 g 04/10/21 10/06/21 History aerosol inhaler vitamins A,C,V-chpz-bzjnoc 14,320 1 cap PO BID 05/12/21 10/06/21 History unit-226 mg-200 unit capsule (PreserVision AREDS) calcium carbonate 600 mg calcium 1,200 mg PO DAILY tab 06/16/21 10/06/21 History (1,500 mg) tablet (Calcium) lactobacillus combination no.4 3 6,000 mmu cells PO DAILY cap 06/16/21 10/06/21 History billion cell capsule (Probiotic) carvedilol 3.125 mg tablet 3.125 mg PO BID 90 Days #180 tab 07/27/21 10/06/21 Rx lisinopril 20 mg tablet 20 mg PO DAILY tab 08/04/21 10/06/21 History umeclidinium 62.5 mcg-vilanterol 1 ea INHALATION DAILY #60 ea 09/24/21 10/06/21 Rx 25 mcg/actuation powdr for inhalation (Anoro Ellipta) diclofenac sodium 1 % topical gel 2 g TOPICAL QID PRN 10/06/21 10/06/21 History gabapentin 100 mg capsule 200 mg PO HS #60 cap 10/06/21 10/06/21 Rx Past Med/Surg History Medical History ARF (acute renal failure) Arthritis, multiple joint involvement Bacteremia Balance problems Bradycardia Cellulitis COPD (chronic obstructive pulmonary disease) Dyspnea on exertion HTN (hypertension) Hypercholesterolemia Impaired fasting glucose Nocturia Osteoporosis Right arm cellulitis Secondary hypothyroidism Syncope Syncope and collapse (05/15/14) Syncope and collapse UTI (urinary tract infection) Surgical History H/O: hysterectomy History of breast biopsy History of bunionectomy History of carpal tunnel surgery History of inguinal hernia repair History of myringotomy History of rotator cuff surgery Jul 2011--Dr. Fish Hx of adenoidectomy Hx of tonsillectomy S/P appendectomy S/P cholecystectomy Family History Mother Alzheimer disease Family/Other No problems noted. Father Emphysema, unspecified Grandfather (Maternal) Colorectal cancer Uncle Prostate cancer Denies family history of Ovarian cancer Coronary heart disease Heart disease Myocardial infarction Breast cancer Social History (Updated 10/06/21 @ 19:21 by MONIQUE Toney) Smoking Status: Former smoker Tobacco Type: Cigarettes Age Started Using Tobacco: 23; Age Quit Using Tobacco: 61; Number of Years Since Quit: 30; Second Hand Exposure: No; Hx Alcohol Use: Yes Alcohol type: wine Alcohol Intake Frequency Comment: social Hx Substance Use: No Preferred Language: Tuvaluan Communication Ability: Effective Visual Impairment: Limited Hearing Ability: Use of Hearing Aid Plate Maker Zinc Required: No Beliefs That Will Affect Care: None marital status: Current Living Situation: Alone Current Living Situation Comment: independent living current occupational 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[employer] How many Children do You have: 3 Feels Safe at Home: Yes Childhood Exposure to Second-Hand Smoke: Yes caffeine: Yes Dental Care, Regularly: No Physical Activity Frequency: Does not Exercise Seatbelt Use: always Sunscreen Use: No Assistive Devices: Cane, Denture - Upper, Denture - Lower, Glasses and Hearing Aid - Bilateral Review of Systems Review of Systems: REVIEW OF SYSTEMS: Constitutional: No fever, sweats or chills Eyes: No diplopia, no worsening or blurred vision ENT: normal hearing, no trouble swallowing Respiratory: (+) COPD, No cough, sputum, dyspnea at rest or on exertion Cardiovascular: (+) syncope No chest pain, tightness or palpitations Abdomen: No pain, nausea, vomiting, diarrhea or constipation : (+) frequency and urgency Musculoskeletal: (+) knee and back joint pain, calf pain, swelling Neurologic: No weakness, numbness/tingling, or balance problems Psychiatric: No anxiety or depression Skin: No rash or itch Physical Exam Physical Exam: PHYSICAL EXAM: General: awake, alert, no apparent distress Head: Normocephalic, atraumatic ENT: PERRL, EOMI, no pharyngeal exudate, mucous membranes moist Neuro: AAO x 3, speech clear and appropriate, strength intact bilaterally 5/5, sensation intact and equal all extremities and dermatomes, no pronator drift Chest: equal rise and fall of the chest, no accessory muscle use, no heaves or thrills, scattered crackles, on room 2 [facility], Cardiac: Regular rate and rhythm, telemetry reviewed, skin warm dry, cap refill <3 seconds, peripheral pulses +2 no JVD, no murmur, no edema GI: NABS x 4 quadrants, soft, nontender to palpation, no rebound, guarding or tenderness : Spontaneously voiding, no pain, no CVA tenderness, Extremities: Normal inspection, no peripheral edema or erythema, calfs nontender to palpation Psych: Normal mood and affect Skin: no rash or erythema Results & Data Results & Data ([facility]) Vital Signs (Past 12 Hours) Vital Signs Temp Pulse Resp BP Pulse Ox 10/06/21 18:30 72 27 H 190/88 H 92 10/06/21 18:20 73 21 98 10/06/21 18:10 72 22 97 10/06/21 18:01 88 18 10/06/21 17:50 65 22 98 10/06/21 17:40 65 21 95 10/06/21 17:30 65 24 96 10/06/21 17:20 65 23 93 10/06/21 17:15 67 23 174/71 H 86 L 10/06/21 17:10 64 17 174/71 H 92 10/06/21 17:00 64 23 93 10/06/21 16:50 64 16 92 10/06/21 16:40 66 26 H 92 10/06/21 16:30 64 22 93 10/06/21 16:20 63 20 92 10/06/21 16:10 63 26 H 92 10/06/21 16:00 72 20 94 10/06/21 15:55 64 21 94 10/06/21 15:50 67 22 92 10/06/21 15:40 65 22 94 10/06/21 15:30 63 23 132/56 L 94 10/06/21 15:20 61 24 10/06/21 15:10 58 L 18 96 10/06/21 15:09 57 L 22 96 10/06/21 14:58 36.5 C 56 L 12 119/71 100 Laboratory Results Abnormal lab results 10/06/21 10/06/21 10/06/21 Range/Units 15:44 15:44 15:44 RBC 3.70 L (4.2-5.4) M/uL Hgb 11.3 L (12.0-16.0) g/dL Hct 36.1 L (37-47) % MCHC 31.3 L (32-36) g/dL RDW Std Deviation 48.8 H (36.4-46.3) fL Neut # (Auto) 6.93 H (1.4-6.5) K/uL Lymph # (Auto) 0.99 L (1.2-3.4) K/uL Immature Gran # (Auto) 0.16 H (0.00-0.02) K/uL BUN 36 H (6-23) mg/dl Creatinine 1.36 H (0.6-1.2) mg/dl BUN/Creatinine Ratio 26.5 H (10-20) Glucose 128 H (70-99) mg/dl POC Glucose 123 H (70-99) mg/dl TSH 5.499 H (0.300-4.500) uIu/ml SARS-CoV-2, RNA, NAAT (NEGATIVE) 10/06/21 Range/Units 17:22 RBC (4.2-5.4) M/uL Hgb (12.0-16.0) g/dL Hct (37-47) % MCHC (32-36) g/dL RDW Std Deviation (36.4-46.3) fL Neut # (Auto) (1.4-6.5) K/uL Lymph # (Auto) (1.2-3.4) K/uL Immature Gran # (Auto) (0.00-0.02) K/uL BUN (6-23) mg/dl Creatinine (0.6-1.2) mg/dl BUN/Creatinine Ratio (10-20) Glucose (70-99) mg/dl POC Glucose (70-99) mg/dl TSH (0.300-4.500) uIu/ml SARS-CoV-2, RNA, NAAT POSITIVE A* (NEGATIVE) Diagnostic Findings Chest X-Ray 10/06/21 15:38 XR chest 1V portable CLINICAL HISTORY: weakness. Evaluate cardiopulmonary status COMPARISON STUDY: 06/05/2021 TECHNIQUE: 1 view of the chest FINDINGS: Single frontal view of the chest demonstrates the heart size to be mildly enlarged. There is evidence for underlying COPD. Patchy interstitial and alveolar opacities are present bilaterally. The findings are most characteristic of a viral type pneumonitis. Covid 19 pneumonia should be excluded. There is no evidence for pleural effusion. There is no evidence for vascular congestion. There is no acute osseous pathology. IMPRESSION: Patchy interstitial and alveolar opacities bilaterally characteristic of a viral type pneumonitis and probable early Covid 19 pneumonia. Underlying COPD. ACT 112: Negative or not required by law. Electronically signed by: Josep Limon M.D. 10/06/2021 4:09 PM Medications Administered Home Medications cholecalciferol (vitamin D3) 125 mcg (5,000 unit) tablet 125 mcg PO DAILY tab 10/02/19 [History Confirmed 10/06/21] aspirin 81 mg tablet,delayed release 81 mg PO 3XWK tab 04/03/20 [History Confirmed 10/06/21] nystatin 100,000 unit/gram topical cream 1 applic TOPICAL DAILY PRN 12/23/20 [History Confirmed 10/06/21] fluocinonide 0.05 % topical cream 1 applic TOPICAL DAILY g 01/19/21 [History Confirmed 10/06/21] triamcinolone acetonide 0.1 % topical cream 1 applic TOPICAL DIRECTED PRN 01/19/21 [History Confirmed 10/06/21] fluticasone propionate 50 mcg/actuation nasal spray,suspension 1 - 2 spray INTRANASAL DAILY #18.2 ml 04/03/21 [Rx Confirmed 10/06/21] albuterol sulfate 90 mcg/actuation aerosol inhaler 2 puff INHALATION Q4H PRN #1 g 04/10/21 [History Confirmed 10/06/21] vitamins A,C,O-zdti-ocweyp 14,320 unit-226 mg-200 unit capsule (PreserVision AREDS) 1 cap PO BID 05/12/21 [History Confirmed 10/06/21] calcium carbonate 600 mg calcium (1,500 mg) tablet (Calcium) 1,200 mg PO DAILY tab 06/16/21 [History Confirmed 10/06/21] lactobacillus combination no.4 3 billion cell capsule (Probiotic) 6,000 mmu cells PO DAILY cap 06/16/21 [History Confirmed 10/06/21] carvedilol 3.125 mg tablet 3.125 mg PO BID 90 Days #180 tab 07/27/21 [Rx Confirmed 10/06/21] lisinopril 20 mg tablet 20 mg PO DAILY tab 08/04/21 [History Confirmed 10/06/21] umeclidinium 62.5 mcg-vilanterol 25 mcg/actuation powdr for inhalation (Anoro Ellipta) 1 ea INHALATION DAILY #60 ea 09/24/21 [Rx Confirmed 10/06/21] diclofenac sodium 1 % topical gel 2 g TOPICAL QID PRN 10/06/21 [History Confirmed 10/06/21] gabapentin 100 mg capsule 200 mg PO HS #60 cap 10/06/21 [Rx Confirmed 10/06/21] Active Medications Remdesivir 200 mg/ Sodium (Chloride) 250 mls @ 125 mls/hr IV ONE STA; Protocol Stop: 10/06/21 20:59 Ceftriaxone Sodium (Rocephin) 1,000 mg in 50 mls @ 100 mls/hr IV NOW STA Stop: 10/06/21 19:30 ECG Additional Comments: Sinus bradycardia Nonspecific ST and T wave abnormality Abnormal ECG When compared with ECG of 31-MAY-2021 19:55, No significant change was found Code Status & VTE Plan Code Status CODE: FULL VTE: SCDs, Heparin 5000 sq BID Supervising Physician Co-Signing Physician Notes Patient was seen and examined independently I discussed the case with Jordy AMAYA I reviewed pertinent past medical social family history and also the plan of care and agree with the plan of care. Presented with syncope, found to have Covid without pulmonary issues and a gram negative uti poa on exam she is unremarkable, will follow for Covid progression and have Rocephin for uti Any exceptions will be noted below PG Care Time/CCT Total # of Minutes Spent Total Time Spent with Patient: Total time spent is greater than 50% in coordination of care (as documented) at patient's floor/unit and/or counseling patient: Coding Level of Care Code 43161 Initial Inpt Care Lvl 3 Diagnoses Syncope R55 Syncope type: unspecified COVID-19 U07.1 CKD (chronic kidney disease), stage III N18.30 Arthritis, multiple joint involvement M12.9 COPD (chronic obstructive pulmonary disease) J44.9 Abnormal TSH R79.89 (1) Syncope Syncope type: unspecified Qualified Code(s): R55 - Syncope and collapse
[2021-10-06] MEDS ORDERED: REMDESIVIR 200 MG in SODIUM CHLORIDE 0.9% 210 ML IV STA (19:00)
[2021-10-06] MEDS ORDERED: cefTRIAXone SODIUM 1,000 MG/50 ML BAG IV STA (19:01)
[2021-10-06 20:37] LABS: Appearance Urine Turbid (Clear); Bacteria Urine Automated 1+ (Negative); Bilirubin Urine Negative (Negative); Blood Urine 1+ (Negative); Color Urine Yellow; Epithelial Cell Urine Auto >30 /lpf (0-5); Glucose Urine UA Negative (Negative); Ketones Urine Negative (Negative); Leukocyte Esterase Urine 3+ (Negative); Nitrite Urine Positive (Negative); Specific Gravity Urine 1.018 (1.000-1.030); Urobilinogen Urine Negative (Negative); WBC Urine Automated >30 /hpf (0-5); pH Urine 8.5 (4.5-7.5)
[2021-10-06 21:04] LABS: Protein Urine 1+ (Negative)
[2021-10-06 21:53] LABS: Ferritin 242.4 ng/ml (8-388)
[2021-10-06] MEDS ORDERED: ONDANSETRON INJ 2 MG/ML 2 ML VIAL IV PRN (22:51)
[2021-10-06] MEDS ORDERED: POLYETHYLENE (MIRALAX) 17 GM PACK PO PRN (22:51)
[2021-10-06] MEDS ORDERED: ACETAMINOPHEN 325 MG TAB PO PRN (22:51)
[2021-10-07] MEDS: carvediloL 3.125 MG TAB PO SCH ×3 (01:37→20:41)
[2021-10-07] MEDS: HEPARIN SOD 5,000 UNIT/0.5 ML VIAL SQ SCH ×3 (01:37→20:40)
[2021-10-07] MEDS: GABAPENTIN 100 MG CAP PO SCH ×2 (01:37→20:40)
[2021-10-07] MEDS: ALBUTEROL HFA 8 GM INHALER INH SCH ×2 (05:21→07:13)
[2021-10-07 06:21] LABS: Hematocrit (blood only) 32.4 % (37-47); Immature Granulocytes # (auto) 0.04 K/uL (0.00-0.02); Immature Granulocytes % (auto) 0.8 %; Lymphocytes # (auto) 0.88 K/uL (1.2-3.4); Lymphocytes % (auto) 16.8 %; Mean Corpuscular Hemoglobin 29.9 pg (25-34); Mean Corpuscular Hgb Conc 30.9 g/dL (32-36); Mean Corpuscular Volume 96.7 fL (80-100); Mean Platelet Volume 9.2 fL (7.4-10.4); Monocytes % (auto) 1.9 %; Neutrophils # (auto) 4.22 K/uL (1.4-6.5); Neutrophils % (auto) 80.5 %; Platelet Count 231 K/uL (130-400); RDW Coefficient of Variation 13.7 % (11.5-14.5); RDW Standard Deviation 48.6 fL (36.4-46.3); Red Blood Count 3.35 M/uL (4.2-5.4); White Blood Count 5.24 K/uL (4.8-10.8)
[2021-10-07 06:40] LABS: Calcium 8.3 mg/dl (8.5-10.1); Creatinine Clr Calc Pharmacy 30.4 ml/min; Est GFR (African American) 46.1 ml/min; Est GFR (Non-African American) 39.8 ml/min; Magnesium 1.5 mg/dl (1.7-2.4); Potassium 5.3 mmol/L (3.5-5.1)
--- NOTE | 2021-10-07 08:01 | Electrocardiogram Report ---
Test Reason : Blood Pressure : / mmHG Vent. Rate : 059 BPM Atrial Rate : 059 BPM P-R Int : 182 ms QRS Dur : 104 ms QT Int : 466 ms P-R-T Axes : 068 -09 120 degrees QTc Int : 461 ms Sinus bradycardia Nonspecific ST and T wave abnormality Lateral leads Abnormal ECG When compared with ECG of 31-MAY-2021 19:55, No significant change was found Confirmed by Yusef Rhodes ([id number]) on 10/07/2021 8:00:53 AM Referred By: REFERRED SELF Confirmed By:Yusef Rhodes
[2021-10-07] MEDS: CALCIUM CARBONATE 1250MG TAB PO SCH (08:39)
[2021-10-07] MEDS: dexAMETHasone 6 MG in SYRINGE 0 ML IV SCH (08:39)
[2021-10-07] MEDS: ASPIRIN 81 MG ECTAB PO SCH (08:40)
[2021-10-07] MEDS: CHOLECALCIFEROL 5,000 UNITS 125 MCG TAB PO SCH (08:40)
[2021-10-07] MEDS: FLUTICASONE PROPIONATE NA SPR 16 GM BTL NAE SCH (08:40)
[2021-10-07] MEDS: UMECLIDINIUM/VILANTEROL 62.5/25MCG 7 PUFFS/INHALER INH SCH (08:41)
[2021-10-07] MEDS: MAGNESIUM SULFATE / D5W 1 GM/100 ML BAG IV SCH ×2 (10:27→12:50)
[2021-10-07] MEDS ORDERED: DEXTROSE 50% 50 ML SYRINGE IV PRN (12:21)
[2021-10-07] MEDS ORDERED: GLUCOSE 40% GEL 15 GM TUBE PO PRN (12:21)
[2021-10-07] MEDS ORDERED: GLUCAGON FOR INJ 1 MG VIAL SQ PRN (12:21)
[2021-10-07] MEDS ORDERED: GLUCOSE 10 TABS/TUBE PO PRN (12:21)
[2021-10-07] MEDS ORDERED: CARBOHYDRATES FOR HYPOGLYCEMIA PO PRN (12:21)
[2021-10-07] MEDS ORDERED: ALBUTEROL HFA 8 GM INHALER INH PRN (12:53)
[2021-10-07] MEDS ORDERED: NSS + 20MEQ KCL 20 MEQ/1,000 ML BAG IV SCH (13:15)
--- NOTE | 2021-10-07 16:04 | Hospitalist Progress Note ---
Date of Service October 07, 2021 Assessment & Plan (1) Syncope: Plan: Patient with multiple episodes of syncope in the past- she has no structural heart disease on ECHO 04/2021 and no continuous or frequent dysrhythmias noted on her holter - this episode is possibly related to her UTI, probably micturition syncope -no events on tele except sinus ruth-Coreg held this AM for bradycardia -home lisinopril held on admission but will restart tomorrow -dc IVFs (2) COVID-19: Plan: COVID19 pneumonitis Incidental finding upon admission- patient is asymptomatic except slightly hypoxic - she is vaccinated without booster - continue Remdesivir- Follow renal function - Continue Decadron -CRP only 2.1 - Supportive care at this time -continue O2 to keep POx>88% given COPD-titrated down to 1LNC when I saw her -follow -cbc,bmp in AM (3) COPD (chronic obstructive pulmonary disease): Plan: She has mild COPD with infrequent hospitalizations and/or exacerbations - PFTs not available - Continue her Anoro and her Albuterol - possibly with mild exacerbation given need for O2 but lungs sound clear now after on decadron - Treat underlying COVID as above (4) CKD (chronic kidney disease), stage III: Plan: CKD III- Baseline MACHINE 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 1.34-1.4 -Likely secondary to hypertension - restart lisinopril in AM (5) Arthritis, multiple joint involvement: Plan: Continue her Gabapentin (6) Abnormal TSH: Plan: Some smattering through the chart of a secondary hypothyroidism TSH at 5.4 Free T4 0.94 - no acute intervention needed (7) Pneumonia due to COVID-19 virus: Plan: as above (8) UTI (urinary tract infection): Plan: Ur cx with Proteus, pansensitive continue ceftriaxone (9) HTN (hypertension): Plan: BPs ok continue Coreg wih hold parameters (10) Hypoxia: Plan: as above acute respiratory failure with hypoxia secondary to COVID-19 Pneumonitis (11) Impaired fasting glucose: Plan: check glucose ACHS add Novolog check A1C (12) Hyperkalemia: Plan: K+ 5.3 today holding lisinopril follow BMP in OR low K diet (13) Hypomagnesemia: Plan: replace with IV mag check Mag level in AM (14) Anemia: Plan: mild, 10.0, normocytic some drop from yest is hemodilutional (15) HFrEF (heart failure with reduced ejection fraction): Plan: EF 45% giving fluids no evidence of heart failure Plan: DVT proph-heparin SQ Dispo-continued stay Discussed care with daughter on phone Admission and Anticipated Discharge Date Admission Date: October 06, 2021 Subjective Pt feeling better. Not SOB. Remains on 2L NC but POx 96%--> titrated her down to 1L while with her. Feels her UTI sxs are improving, less frequency and dysuria. No abd pain, is eating and drinking. Tele with SB, rates 50-70s Review of Systems Review of Systems: All systems reviewed & are unremarkable except as noted in HPI & below Physical Exam Constitutional: WD/WN, vitals as above Eyes: + anicteric sclerae ENMT: external ear and nose normal, oropharynx normal Neck: trachea midline, no thyromegaly Respiratory: normal respiratory effort, lungs clear to auscultation Cardiovascular: RRR, no murmur, no edema Chest (Breasts): Chest: normal inspection of chest Gastrointestinal (Abdomen): normal bowel sounds, soft, nontender, no hepatosplenomegaly Musculoskeletal: Extremities: extremities normal to inspection; no cyanosis and no clubbing Skin: no rashes, warm and dry Neurologic: moves all extremities and awake; no focal motor deficits Psychiatric: A+Ox3, euthymic affect Lymphatic: no lymphedema Results & Data Results & Data ([facility]) Vital Signs (Past 12 Hours) Vital Signs Temp Pulse Pulse Resp BP Pulse Ox 10/07/21 15:30 37.0 C 64 18 149/81 H 93 10/07/21 14:19 73 10/07/21 12:00 36.8 C 65 18 130/73 95 10/07/21 07:14 58 L 18 97 10/07/21 06:26 36.5 C 49 L 18 94/55 L 98 10/07/21 06:16 51 L Laboratory Results 10/07/21 10/07/21 10/07/21 Range/Units 20:20 16:26 11:54 WBC (4.8-10.8) K/uL RBC (4.2-5.4) M/uL Hgb (12.0-16.0) g/dL Hct (37-47) % MCV (80-100) fL MCH (25-34) pg MCHC (32-36) g/dL RDW Std Deviation (36.4-46.3) fL RDW Coeff of Stiven (11.5-14.5) % Plt Count (130-400) K/uL MPV (7.4-10.4) fL Immature Gran % (Auto) % Neut % (Auto) % Lymph % (Auto) % Lake % (Auto) % Eos % (Auto) % Baso % (Auto) % Neut # (Auto) (1.4-6.5) K/uL Lymph # (Auto) (1.2-3.4) K/uL Lake # (Auto) (0.11-0.59) K/uL Eos # (Auto) (0-0.5) K/uL Baso # (Auto) (0-0.2) K/uL Immature Gran # (Auto) (0.00-0.02) K/uL Sodium (136-145) mmol/L Potassium (3.5-5.1) mmol/L Chloride (98-107) mmol/L Carbon Dioxide (21-32) mmol/L Anion Gap (3-11) BUN (6-23) mg/dl Creatinine (0.6-1.2) mg/dl Est Cr Clr Drug Dosing ml/min Est GFR ( Amer) ml/min Est GFR (Non-Af Amer) ml/min BUN/Creatinine Ratio (10-20) Glucose (70-99) mg/dl POC Glucose 127 H 145 H 149 H (70-99) mg/dl Calcium (8.5-10.1) mg/dl Magnesium (1.7-2.4) mg/dl 10/07/21 10/07/21 10/07/21 Range/Units 07:21 05:44 05:44 WBC 5.24 (4.8-10.8) K/uL RBC 3.35 L (4.2-5.4) M/uL Hgb 10.0 L (12.0-16.0) g/dL Hct 32.4 L (37-47) % MCV 96.7 (80-100) fL MCH 29.9 (25-34) pg MCHC 30.9 L (32-36) g/dL RDW Std Deviation 48.6 H (36.4-46.3) fL RDW Coeff of Stiven 13.7 (11.5-14.5) % Plt Count 231 (130-400) K/uL MPV 9.2 (7.4-10.4) fL Immature Gran % (Auto) 0.8 % Neut % (Auto) 80.5 % Lymph % (Auto) 16.8 % Lake % (Auto) 1.9 % Eos % (Auto) 0.0 % Baso % (Auto) 0.0 % Neut # (Auto) 4.22 (1.4-6.5) K/uL Lymph # (Auto) 0.88 L (1.2-3.4) K/uL Lake # (Auto) 0.10 L (0.11-0.59) K/uL Eos # (Auto) 0.00 (0-0.5) K/uL Baso # (Auto) 0.00 (0-0.2) K/uL Immature Gran # (Auto) 0.04 H (0.00-0.02) K/uL Sodium 135 L (136-145) mmol/L Potassium 5.3 H (3.5-5.1) mmol/L Chloride 104 (98-107) mmol/L Carbon Dioxide 25 (21-32) mmol/L Anion Gap 6 (3-11) BUN 39 H (6-23) mg/dl Creatinine 1.22 H (0.6-1.2) mg/dl Est Cr Clr Drug Dosing 30.4 ml/min Est GFR ( Amer) 46.1 ml/min Est GFR (Non-Af Amer) 39.8 ml/min BUN/Creatinine Ratio 32.0 H (10-20) Glucose 151 H (70-99) mg/dl POC Glucose 145 H (70-99) mg/dl Calcium 8.3 L (8.5-10.1) mg/dl Magnesium 1.5 L (1.7-2.4) mg/dl PG Care Time/CCT Total # of Minutes Spent Total Time Spent with Patient: Total time spent is greater than 50% in coordination of care (as documented) at patient's floor/unit and/or counseling patient: Coding Level of Care Code 93586 Subseq Hosp Care Lvl 3 Diagnoses Syncope R55 Syncope type: unspecified COVID-19 U07.1 COPD (chronic obstructive pulmonary disease) J44.9 CKD (chronic kidney disease), stage III N18.30 Arthritis, multiple joint involvement M12.9 Abnormal TSH R79.89 Pneumonia due to COVID-19 virus U07.1; J12.82 UTI (urinary tract infection) N39.0 HTN (hypertension) I10 Hypoxia R09.02 Impaired fasting glucose R73.01 Hyperkalemia E87.5 Hypomagnesemia E83.42 Anemia D64.9 HFrEF (heart failure with reduced ejection fraction) I50.20 (1) Syncope Syncope type: unspecified Qualified Code(s): R55 - Syncope and collapse
[2021-10-07] MEDS: INSULIN ASPART PER UNIT SC SCH ×2 (17:24→20:44)
[2021-10-07] MEDS ORDERED: cefTRIAXone SODIUM 1,000 MG in DEXTROSE 5% 50 ML IV SCH (19:00)
[2021-10-07] MEDS: SODIUM CHLORIDE 0.9% 10ML FLUSH IV SCH (20:39)
[2021-10-07] MEDS: REMDESIVIR 100 MG in SODIUM CHLORIDE 0.9% 230 ML IV SCH (20:39)
[2021-10-08 07:33] LABS: Basophils # (auto) 0.01 K/uL (0-0.2); Basophils % (auto) 0.1 %; Hematocrit (blood only) 32.1 % (37-47); Hemoglobin 10.1 g/dL (12.0-16.0); Immature Granulocytes # (auto) 0.05 K/uL (0.00-0.02); Immature Granulocytes % (auto) 0.5 %; Lymphocytes # (auto) 1.68 K/uL (1.2-3.4); Lymphocytes % (auto) 15.6 %; Mean Corpuscular Hemoglobin 30.1 pg (25-34); Mean Corpuscular Hgb Conc 31.5 g/dL (32-36); Mean Corpuscular Volume 95.8 fL (80-100); Mean Platelet Volume 9.7 fL (7.4-10.4); Monocytes # (auto) 0.68 K/uL (0.11-0.59); Monocytes % (auto) 6.3 %; Neutrophils # (auto) 8.34 K/uL (1.4-6.5); Neutrophils % (auto) 77.5 %; Platelet Count 274 K/uL (130-400); RDW Coefficient of Variation 13.7 % (11.5-14.5); Red Blood Count 3.35 M/uL (4.2-5.4); White Blood Count 10.76 K/uL (4.8-10.8)
[2021-10-08 08:06] LABS: BUN Creatinine Ratio 35.9 (10-20); Calcium 8.2 mg/dl (8.5-10.1); Est GFR (African American) 48.5 ml/min; Est GFR (Non-African American) 41.9 ml/min; Magnesium 1.8 mg/dl (1.7-2.4); Potassium 4.7 mmol/L (3.5-5.1)
[2021-10-08] MEDS: CALCIUM CARBONATE 1250MG TAB PO SCH (08:19)
[2021-10-08] MEDS: carvediloL 3.125 MG TAB PO SCH ×2 (08:19→19:46)
[2021-10-08] MEDS: dexAMETHasone 6 MG in SYRINGE 0 ML IV SCH (08:19)
[2021-10-08] MEDS: CHOLECALCIFEROL 5,000 UNITS 125 MCG TAB PO SCH (08:20)
[2021-10-08] MEDS: FLUTICASONE PROPIONATE NA SPR 16 GM BTL NAE SCH (08:21)
[2021-10-08] MEDS: HEPARIN SOD 5,000 UNIT/0.5 ML VIAL SQ SCH ×2 (08:21→19:46)
[2021-10-08] MEDS: UMECLIDINIUM/VILANTEROL 62.5/25MCG 7 PUFFS/INHALER INH SCH (08:23)
[2021-10-08] MEDS: INSULIN ASPART PER UNIT SC SCH ×4 (08:28→19:50)
[2021-10-08] MEDS: lisinopril 20 MG TAB PO SCH (09:14)
[2021-10-08 09:27] LABS: Estimated Average Glucose 134 mg/dl; Hemoglobin A1C 6.3 % (4.5-5.6)
--- NOTE | 2021-10-08 18:19 | Hospitalist Progress Note ---
Date of Service October 08, 2021 Assessment & Plan (1) Syncope: Plan: Patient with multiple episodes of syncope in the past- she has no structural heart disease on ECHO 04/2021 and no continuous or frequent dysrhythmias noted on her holter - this episode is possibly related to her UTI, probably micturition syncope -no events on tele except sinus ruth and NSR -home lisinopril held on admission but restarted today -received IVFs and stopped after one day -check orthostatics (2) COVID-19: Plan: COVID19 pneumonitis Incidental finding upon admission- patient is asymptomatic except slightly hypoxic - she is vaccinated without booster Hypoxia now resolved, on room air and POx 95% - continue Remdesivir- Follow renal function - Continue Decadron and convert to 6mg po once daily to finish out 10 day course after discharge -CRP only 2.1 - Supportive care at this time -continue O2 to keep POx>88% given COPD mild case, likely to home tomorrow is ambulating halls without dyspnea (3) COPD (chronic obstructive pulmonary disease): Plan: She has mild COPD with infrequent hospitalizations and/or exacerbations - PFTs not available - Continue her Anoro and her Albuterol - possibly with mild exacerbation given need for O2 but lungs sound clear now after on decadron - Treat underlying COVID as above (4) CKD (chronic kidney disease), stage III: Plan: CKD III- Baseline [employer] 1.34-1.4 -Likely secondary to hypertension continue lisinopril (5) Arthritis, multiple joint involvement: Plan: Continue her Gabapentin (6) Abnormal TSH: Plan: TSH at 5.4 Free T4 0.94 - no acute intervention needed f/u with PC,not on LT4 (7) Pneumonia due to COVID-19 virus: Plan: as above (8) UTI (urinary tract infection): Plan: Ur cx with Proteus, pansensitive received ceftriaxone x 2 days and now convert to po cefdinir to complete 7 days (9) HTN (hypertension): Plan: BPs mildly elevated lisinopril was on hold and restarted today continue Coreg with hold parameters, continue lisinopril (10) Hypoxia: Plan: as above, now resolved acute respiratory failure with hypoxia secondary to COVID-19 Pneumonitis (11) Impaired fasting glucose: Plan: glucose ACHS, gluose in 120s Novolog prn as may have hyperglycemia with steroids Hgb A1C 6.3% in prediabetes range (12) Hyperkalemia: Plan: K+ 5.3 and now improved back to normal with IVF hydration and low K+ diet restarted lisinopril follow BMP in AM low K diet (13) Hypomagnesemia: Plan: replaced and now normal (14) Anemia: Plan: mild, 10.0, normocytic some drop from is hemodilutional f/u outpt with PCP (15) HFrEF (heart failure with reduced ejection fraction): Plan: EF 45% no evidence of decompensated heart failure Plan: DVT proph-heparin SQ Dispo-continued stay, but likely dc to home tomorrow. She declines home health will update daughter by phone Admission and Anticipated Discharge Date Admission Date: October 06, 2021 Anticipated date of discharge: 10/09/21 Subjective Feeling better, no UTI symptoms, weaned off O2. Was ambulating halls, no cough or SOB.Moving bowels, eating and drinking Tele with NSR rates 70s Review of Systems Review of Systems: All systems reviewed & are unremarkable except as noted in HPI & below Physical Exam Constitutional: WD/WN, vitals as above Eyes: + anicteric sclerae Neck: trachea midline, no thyromegaly Respiratory: normal respiratory effort, lungs clear to auscultation Cardiovascular: RRR, no murmur, no edema Chest (Breasts): Chest: normal inspection of chest Gastrointestinal (Abdomen): normal bowel sounds, soft, nontender, no he patosplenomegaly Musculoskeletal: Extremities: extremities normal to inspection; no cyanosis and no clubbing Skin: no rashes, warm and dry Neurologic: moves all extremities and awake; no focal motor deficits Psychiatric: A+Ox3, euthymic affect Lymphatic: no lymphedema Results & Data Results & Data ([facility]) Vital Signs (Past 12 Hours) Vital Signs Temp Pulse Resp BP Pulse Ox 10/08/21 15:05 36.7 C 64 20 160/69 H 93 10/08/21 11:08 36.8 C 62 20 152/68 H 94 10/08/21 07:42 36.6 C 60 20 150/72 H 94 Laboratory Results 10/08/21 10/08/21 10/08/21 Range/Units 16:13 11:14 07:29 WBC (4.8-10.8) K/uL RBC (4.2-5.4) M/uL Hgb (12.0-16.0) g/dL Hct (37-47) % MCV (80-100) fL MCH (25-34) pg MCHC (32-36) g/dL RDW Std Deviation (36.4-46.3) fL RDW Coeff of Stiven (11.5-14.5) % Plt Count (130-400) K/uL MPV (7.4-10.4) fL Immature Gran % (Auto) % Neut % (Auto) % Lymph % (Auto) % [place] % (Auto) % Eos % (Auto) % Baso % (Auto) % Neut # (Auto) (1.4-6.5) K/uL Lymph # (Auto) (1.2-3.4) K/uL [place] # (Auto) (0.11-0.59) K/uL Eos # (Auto) (0-0.5) K/uL Baso # (Auto) (0-0.2) K/uL Immature Gran # (Auto) (0.00-0.02) K/uL Sodium (136-145) mmol/L Potassium (3.5-5.1) mmol/L Chloride (98-107) mmol/L Carbon Dioxide (21-32) mmol/L Anion Gap (3-11) BUN (6-23) mg/dl Creatinine (0.6-1.2) mg/dl Est Cr Clr Drug Dosing ml/min Est GFR ( Amer) ml/min Est GFR (Non-Af Amer) ml/min BUN/Creatinine Ratio (10-20) Glucose (70-99) mg/dl POC Glucose 122 H 100 H 97 (70-99) mg/dl Estimat Average Glucose mg/dl Hemoglobin A1c (4.5-5.6) % Calcium (8.5-10.1) mg/dl Magnesium (1.7-2.4) mg/dl AST (13-39) U/L ALT (7-52) U/L 10/08/21 10/08/21 10/08/21 Range/Units 06:11 06:11 06:11 WBC 10.76 (4.8-10.8) K/uL RBC 3.35 L (4.2-5.4) M/uL Hgb 10.1 L (12.0-16.0) g/dL Hct 32.1 L (37-47) % MCV 95.8 (80-100) fL MCH 30.1 (25-34) pg MCHC 31.5 L (32-36) g/dL RDW Std Deviation 48.0 H (36.4-46.3) fL RDW Coeff of Stiven 13.7 (11.5-14.5) % Plt Count 274 (130-400) K/uL MPV 9.7 (7.4-10.4) fL Immature Gran % (Auto) 0.5 % Neut % (Auto) 77.5 % Lymph % (Auto) 15.6 % [place] % (Auto) 6.3 % Eos % (Auto) 0.0 % Baso % (Auto) 0.1 % Neut # (Auto) 8.34 H (1.4-6.5) K/uL Lymph # (Auto) 1.68 (1.2-3.4) K/uL [place] # (Auto) 0.68 H (0.11-0.59) K/uL Eos # (Auto) 0.00 (0-0.5) K/uL Baso # (Auto) 0.01 (0-0.2) K/uL Immature Gran # (Auto) 0.05 H (0.00-0.02) K/uL Sodium 137 (136-145) mmol/L Potassium 4.7 (3.5-5.1) mmol/L Chloride 104 (98-107) mmol/L Carbon Dioxide 25 (21-32) mmol/L Anion Gap 8 (3-11) BUN 42 H (6-23) mg/dl Creatinine 1.17 (0.6-1.2) mg/dl Est Cr Clr Drug Dosing 31.0 ml/min Est GFR ( Amer) 48.5 ml/min Est GFR (Non-Af Amer) 41.9 ml/min BUN/Creatinine Ratio 35.9 H (10-20) Glucose 92 (70-99) mg/dl POC Glucose (70-99) mg/dl Estimat Average Glucose 134 mg/dl Hemoglobin A1c 6.3 H (4.5-5.6) % Calcium 8.2 L (8.5-10.1) mg/dl Magnesium 1.8 (1.7-2.4) mg/dl AST 22 (13-39) U/L ALT 12 (7-52) U/L 10/07/21 Range/Units 20:20 WBC (4.8-10.8) K/uL RBC (4.2-5.4) M/uL Hgb (12.0-16.0) g/dL Hct (37-47) % MCV (80-100) fL MCH (25-34) pg MCHC (32-36) g/dL RDW Std Deviation (36.4-46.3) fL RDW Coeff of Stiven (11.5-14.5) % Plt Count (130-400) K/uL MPV (7.4-10.4) fL Immature Gran % (Auto) % Neut % (Auto) % Lymph % (Auto) % [place] % (Auto) % Eos % (Auto) % Baso % (Auto) % Neut # (Auto) (1.4-6.5) K/uL Lymph # (Auto) (1.2-3.4) K/uL [place] # (Auto) (0.11-0.59) K/uL Eos # (Auto) (0-0.5) K/uL Baso # (Auto) (0-0.2) K/uL Immature Gran # (Auto) (0.00-0.02) K/uL Sodium (136-145) mmol/L Potassium (3.5-5.1) mmol/L Chloride (98-107) mmol/L Carbon Dioxide (21-32) mmol/L Anion Gap (3-11) BUN (6-23) mg/dl Creatinine (0.6-1.2) mg/dl Est Cr Clr Drug Dosing ml/min Est GFR ( Amer) ml/min Est GFR (Non-Af Amer) ml/min BUN/Creatinine Ratio (10-20) Glucose (70-99) mg/dl POC Glucose 127 H (70-99) mg/dl Estimat Average Glucose mg/dl Hemoglobin A1c (4.5-5.6) % Calcium (8.5-10.1) mg/dl Magnesium (1.7-2.4) mg/dl AST (13-39) U/L ALT (7-52) U/L PG Care Time/CCT Total # of Minutes Spent Total Time Spent with Patient: Total time spent is greater than 50% in coordination of care (as documented) at patient's floor/unit and/or counseling patient: Coding Level of Care Code 15707 Subseq Hosp Care Lvl 2 Diagnoses Syncope R55 Syncope type: unspecified COVID-19 U07.1 COPD (chronic obstructive pulmonary disease) J44.9 CKD (chronic kidney disease), stage III N18.30 Arthritis, multiple joint involvement M12.9 Abnormal TSH R79.89 Pneumonia due to COVID-19 virus U07.1; J12.82 UTI (urinary tract infection) N39.0 HTN (hypertension) I10 Hypoxia R09.02 Impaired fasting glucose R73.01 Hyperkalemia E87.5 Hypomagnesemia E83.42 Anemia D64.9 HFrEF (heart failure with reduced ejection fraction) I50.20 (1) Syncope Syncope type: unspecified Qualified Code(s): R55 - Syncope and collapse
[2021-10-08] MEDS: REMDESIVIR 100 MG in SODIUM CHLORIDE 0.9% 230 ML IV SCH (19:45)
[2021-10-08] MEDS: GABAPENTIN 100 MG CAP PO SCH (19:45)
[2021-10-08] MEDS: SODIUM CHLORIDE 0.9% 10ML FLUSH IV SCH (19:45)
[2021-10-08] MEDS: CEFDINIR 300 MG CAP PO SCH (19:47)
[2021-10-09 06:24] LABS: Basophils # (auto) 0.01 K/uL (0-0.2); Basophils % (auto) 0.1 %; Hematocrit (blood only) 31.8 % (37-47); Immature Granulocytes # (auto) 0.07 K/uL (0.00-0.02); Immature Granulocytes % (auto) 0.8 %; Lymphocytes # (auto) 1.81 K/uL (1.2-3.4); Lymphocytes % (auto) 19.5 %; Mean Corpuscular Hemoglobin 29.9 pg (25-34); Mean Corpuscular Hgb Conc 31.4 g/dL (32-36); Mean Corpuscular Volume 94.9 fL (80-100); Mean Platelet Volume 9.5 fL (7.4-10.4); Monocytes # (auto) 0.63 K/uL (0.11-0.59); Monocytes % (auto) 6.8 %; Neutrophils # (auto) 6.76 K/uL (1.4-6.5); Neutrophils % (auto) 72.8 %; Platelet Count 257 K/uL (130-400); RDW Coefficient of Variation 13.6 % (11.5-14.5); RDW Standard Deviation 47.3 fL (36.4-46.3); Red Blood Count 3.35 M/uL (4.2-5.4); White Blood Count 9.28 K/uL (4.8-10.8)
[2021-10-09 06:48] LABS: BUN Creatinine Ratio 39.1 (10-20); Creatinine Clr Calc Pharmacy 31.3 ml/min; Est GFR (African American) 49.5 ml/min; Est GFR (Non-African American) 42.7 ml/min; Magnesium 1.6 mg/dl (1.7-2.4); Potassium 4.4 mmol/L (3.5-5.1)
[2021-10-09] MEDS: CALCIUM CARBONATE 1250MG TAB PO SCH (08:13)
[2021-10-09] MEDS: CHOLECALCIFEROL 5,000 UNITS 125 MCG TAB PO SCH (08:13)
[2021-10-09] MEDS: carvediloL 3.125 MG TAB PO SCH (08:13)
[2021-10-09] MEDS: ASPIRIN 81 MG ECTAB PO SCH (08:13)
[2021-10-09] MEDS: lisinopril 20 MG TAB PO SCH (08:13)
[2021-10-09] MEDS: dexAMETHasone 6 MG in SYRINGE 0 ML IV SCH (08:14)
[2021-10-09] MEDS: UMECLIDINIUM/VILANTEROL 62.5/25MCG 7 PUFFS/INHALER INH SCH (08:14)
[2021-10-09] MEDS: CEFDINIR 300 MG CAP PO SCH (08:14)
[2021-10-09] MEDS: HEPARIN SOD 5,000 UNIT/0.5 ML VIAL SQ SCH (08:14)
[2021-10-09] MEDS: FLUTICASONE PROPIONATE NA SPR 16 GM BTL NAE SCH (08:14)
[2021-10-09] MEDS: INSULIN ASPART PER UNIT SC SCH ×2 (09:07→11:36)
[2021-10-09] MEDS: MAGNESIUM SULFATE / D5W 1 GM/100 ML BAG IV SCH ×2 (11:35→13:15)
--- NOTE | 2021-10-09 15:18 | Discharge Summary ---
Date of Service October 09, 2021 Admission HPI Per Admitting Provider [id number] YOF with past medical history of: CKD II, COPD, HTN, HLD, Impaired fasting glucose, arthritis, syncope, osteopenia, HFrEF. Patient comes to the hospital today for 2 syncope episodes that occurred this morning. Patient lives by herself in an independent living facility. She was standing by her laundry room this morning and woke up on the floor EMS came and she originally did not want to come and then had another syncopal episode to where she was reportedly unresponsive with delayed awakening. The patient states that she has been feeling generally well except for painful and frequent urination, which she was started on antibiotic by her PCP- she was originally started on therapy on Tuesday but was unable to provide urine sample. She did urinate yesterday and provided her sample at that time, her culture from yesterday is showing GNB she will be started on Rocephin. Patient was also given a COVID test for admission and was noted to be positive. She reports no symptoms. She does have a history of COPD, was noted to have decreased SPo2 in the EMD to 88 so was placed on 2LNC and started on Decadron. Patient is unsure of where she may have came in contact with the virus so she is unsure of possible day of illness. Will send CRP, LDH, Ferritin for inflammatory markers, we did discuss therapy to include Remdesivir, steroids, and self rotation therapy. Will have to watch her renal function with remdesivir. Patient will be admitted to medical telemetry, follow her inflammatory markers, schedule her albuterol for 24 hours, started on Rocephin for UTI. For her syncopal episode the patient has had this before over the summer- she did have a Holter monitor in March that was unrevealing- mostly NSR with PAC and occasional PVC with NSR; and an ECHO done. Her ECHO is borderline EF 45-50% wtih mild LVH and left atrial dilation. Normal valve function. She did not report hitting anything and she has no tenderness to any of her joints. She has no cervical pain and is with full range of motion, stable pelvis and full rom. She also has no tenderness to her head with palpation. She was also treated for septic arthritis of her thumb in June 16 that was positive for pasteurella. She did have and I&D completed at that time. Principal Diagnosis COVID-19 pneumonitis, UTI, micturition syncope, acute respiratory failure with hypoxia Discharge Exam Constitutional WD/WN, vitals as above Eyes + anicteric sclerae ENMT external ear and nose normal, oropharynx normal Neck trachea midline, no thyromegaly Respiratory normal respiratory effort, lungs clear to auscultation Cardiovascular RRR, no murmur, no edema Chest (Breasts) Chest: normal inspection of chest Gastrointestinal (Abdomen) normal bowel sounds, soft, nontender, no hepatosplenomegaly Musculoskeletal Extremities: extremities normal to inspection; no cyanosis and no clubbing Skin no rashes, warm and dry Neurologic moves all extremities and awake; no focal motor deficits Psychiatric A+Ox3, euthymic affect Lymphatic no lymphedema Discharge Data Allergies Allergy/AdvReac Type Severity Reaction Status Date / Time latex Allergy Intermediate SEVERE Verified 10/06/21 16:03 ITCHING cephalexin Allergy Mild RASH Verified 10/06/21 16:03 Consultations 10/06/21 18:08 ED Decision to Admit Stat Hospital Course (1) Syncope: Patient with multiple episodes of syncope in the past- she has no structural heart disease on ECHO 04/2021 and no continuous or frequent dysrhythmias noted on her holter - this episode is possibly related to her UTI, probably micturition syncope -no events on tele except sinus ruth and NSR -received IVFs and stopped after one day -checked orthostatics-negative (2) COVID-19: COVID19 pneumonitis Incidental finding upon admission- patient is asymptomatic except slightly hypoxic - she is vaccinated without booster Hypoxia now resolved, on room air and POx 96% - received 3 doses of Remdesivir-stop on dc - Continue Decadron and convert to 6mg po once daily to finish out 10 day course after discharge -CRP only 2.1 - Supportive care at this time is ambulating halls without dyspnea continue monitoring at home for worsening symptoms (3) COPD (chronic obstructive pulmonary disease): She has mild COPD with infrequent hospitalizations and/or exacerbations - PFTs not available - Continue her Anoro and her Albuterol - possibly with mild exacerbation given need for O2 but lungs sound clear now after on decadron - Treat underlying COVID as above (4) CKD (chronic kidney disease), stage III: CKD III- Baseline [employer] 1.34-1.4 -Likely secondary to hypertension continue lisinopril (5) Arthritis, multiple joint involvement: Continue her Gabapentin (6) Abnormal TSH: TSH at 5.4 Free T4 0.94 - no acute intervention needed f/u with PCP, not on LT4 (7) Pneumonia due to COVID-19 virus: as above (8) UTI (urinary tract infection): Ur cx with Proteus, pansensitive received ceftriaxone x 2 days and then converted to po cefdinir to complete 7 days (9) HTN (hypertension): BPs mildly elevated, was anxious to leave on day of discharge steroids contributing also to higher BPs continue Coreg, lisinopril monitor as outpt (10) Hypoxia: as above, now resolved acute respiratory failure with hypoxia secondary to COVID-19 Pneumonitis (11) Impaired fasting glucose: glucose ACHS, gluose in 120s Novolog prn as may have hyperglycemia with steroids Hgb A1C 6.3% in prediabetes range (12) Hyperkalemia: K+ 5.3 and now improved back to normal with IVF hydration and low K+ diet restarted lisinopril (13) Hypomagnesemia: replaced on several occasions start mag oxide 250mg po once dialy on discharge follow as outpt (14) Anemia: mild, 10.0, normocytic some drop from is hemodilutional f/u outpt with PCP (15) HFrEF (heart failure with reduced ejection fraction): EF 45% no evidence of decompensated heart failure DVT proph-heparin SQ Dispo-dc to home. She adamantly declines home health Total Time Total Time Spent Total Time Spent (In Minutes): 35min Discharge Plan Discharge Items Patient Disposition: Home - Self-Care Reason For Visit: SYNCOPE, COVID, UTI Discharge Diagnosis: Vasovagal (micturition) Syncope, COVID-19, Acute respiratory failure with hypoxia-resolved, and UTI Condition on Discharge: Good Activity: Resume your previous activity Non-emergency contact: Primary Care Provider Call non-emergency contact if: you have any medication questions, your symptoms worsen and you have a fever Follow-up/Referrals: Best Sow MD [Primary Care Provider] - (Follow up within 1-2 weeks) Diet: Heart Healthy Addtl Attending Provider Instructions: Please finish out the antibiotics for your UTI and the dexamethasone (steroid) for your COVID pneumonitis (inflammation of the lungs from COVID causing you to have mildly low oxygen levels). You are no longer requiring any oxygen. Your magnesium levels were a bit low and were replaced. You should take a magnesium supplement over the counter once daily. Your thyroid function was tested here and was slightly low but could be falsely low in the setting of infection. Please continue to follow up with your PCP on this issue. Follow up with your PCP within 1-2 weeks. Pending Studies at Discharge: No Stand-Alone Forms: [facility] Medications and DC Order Prescriptions: New cefdinir 300 mg Capsule 300 mg PO BID 4 Days Qty: 8 RF: 0 dexamethasone 6 mg tablet 6 mg PO DAILY Qty: 7 RF: 0 magnesium 250 mg tablet 250 mg PO DAILY Qty: 30 RF: 0 Continued fluocinonide 0.05 % cream 1 applic topical DAILY RF: 0 triamcinolone acetonide 0.1 % cream 1 applic topical DIRECTED PRN (Reason: Skin Irritation) RF: 0 fluticasone propionate 50 mcg/actuation spray,suspension 1 - 2 spray intranasal DAILY Qty: 18.2 RF: 5 carvedilol 3.125 mg tablet 3.125 mg PO BID 90 Days Qty: 180 RF: 1 Anoro Ellipta 62.5-25 mcg/actuation blister with device 1 ea inhalation DAILY Qty: 60 RF: 5 gabapentin 100 mg capsule 200 mg PO HS Qty: 60 RF: 5 cholecalciferol (vitamin D3) 125 mcg (5,000 unit) tablet 125 mcg PO DAILY RF: 0 aspirin 81 mg tablet,delayed release (DR/EC) 81 mg PO 3XWK RF: 0 albuterol sulfate 90 mcg/actuation HFA aerosol inhaler 2 puff inhalation Q4H PRN (Reason: Shortness Of Breath) Qty: 1 RF: 0 calcium carbonate [Calcium 600] 600 mg calcium (1,500 mg) tablet 1,200 mg PO DAILY RF: 0 Probiotic 3 billion cell capsule 6,000 mmu cells PO DAILY RF: 0 lisinopril 20 mg tablet 20 mg PO DAILY RF: 0 nystatin 100,000 unit/gram cream 1 applic topical DAILY PRN (Reason: fungal) RF: 0 PreserVision AREDS [id number] capsule 1 cap PO BID RF: 0 diclofenac sodium 1 % gel 2 g topical QID PRN (Reason: Pain) RF: 0 Discharge Orders: Discharge Order (Routine); Ordered 10/09/21 Ordered By: Camila Purdy/Other Patient Handouts: Prediabetes Admission Data Admit Date/Time: 10/06/21 19:00 Attending Provider: Camila Lovett Admit Provider: Christopher Kevin Primary Care Provider: Best Sow Providers: Christopher Kevin Coding Level of Care Code D/C DAY MANAGEMENT >30 MINS Diagnoses Syncope R55 Syncope type: unspecified COVID-19 U07.1 COPD (chronic obstructive pulmonary disease) J44.9 CKD (chronic kidney disease), stage III N18.30 Arthritis, multiple joint involvement M12.9 Abnormal TSH R79.89 Pneumonia due to COVID-19 virus U07.1; J12.82 UTI (urinary tract infection) N39.0 HTN (hypertension) I10 Hypoxia R09.02 Impaired fasting glucose R73.01 Hyperkalemia E87.5 Hypomagnesemia E83.42 Anemia D64.9 HFrEF (heart failure with reduced ejection fraction) I50.20
[2021-10-09 15:24] VITALS: PULSE 83; TEMP 98.2
[2021-10-09 15:35] VITALS: BP 145/68
[2021-10-09 16:19] VITALS: O2SAT 93
[2021-10-12 11:07] LABS: C Reactive Protein 2.14 mg/dl (0-0.5)
== END 2021-10-09 16:16 | disposition home or self-care (01) | DRG 689 ==
LOC: ED 14:39 → 2W 19:00 → SUATTDRO 19:00 → 2W 22:35

== ENCOUNTER 2022-04-29 06:55 | Inpatient (IN) ==
[2022-04-29] MEDS ORDERED: SODIUM CHLORIDE 0.9% 1000ML 1,000 ML IV SCH ×2 (07:30→12:17)
--- NOTE | 2022-04-29 07:33 | Emergency Department Note ---
History of Present Illness General Chief complaint: Illness Stated complaint: Dizziness, Weakness, Vomiting Time Seen by Provider: 04/29/22 07:10 History of Present Illness Maximum Pain Intensity: 0 86-year-old female presents to the ED with a chief complaint of falling lightheaded when she got up this morning associate with some nausea and vomiting x1 as well as some generalized weakness. She has been eating and drinking okay recently. She states that she is feeling a little bit better now. No fevers or recent illness. No chest pains or shortness of breath. No headaches or focal weakness. No other complaints at this time. Lives alone with her cat. The patient reports that she fell last week and hit a dresser with her right posterior lateral rib causing some discomfort that is worse with movement. She has been using Voltaren for that. Home Medications Medication Instructions Recorded Confirmed Type cholecalciferol (vitamin D3) 125 125 mcg PO DAILY 10/02/19 12/29/21 History mcg (5,000 unit) tablet aspirin 81 mg tablet,delayed 81 mg PO 3XWK 04/03/20 12/29/21 History release nystatin 100,000 unit/gram topical 1 applic topical DAILY PRN fungal 12/23/20 12/29/21 History cream fluocinonide 0.05 % topical cream 1 applic topical DAILY 01/19/21 12/29/21 History triamcinolone acetonide 0.1 % 1 applic topical DIRECTED PRN 01/19/21 12/29/21 History topical cream Skin Irritation albuterol sulfate 90 mcg/actuation 2 puff inhalation Q4H PRN 04/10/21 12/29/21 History aerosol inhaler Shortness Of Breath #1 g vitamins A,C,H-udke-ikoxfw 14,320 1 cap PO BID 05/12/21 12/29/21 History unit-226 mg-200 unit capsule (PreserVision AREDS) calcium carbonate 600 mg calcium 1,200 mg PO DAILY 06/16/21 12/29/21 History (1,500 mg) tablet (Calcium) lactobacillus combination no.4 3 6,000 mmu cells PO DAILY 06/16/21 12/29/21 History billion cell capsule (Probiotic) magnesium 250 mg tablet 250 mg PO DAILY #30 tabs 10/09/21 12/29/21 Rx carvedilol 3.125 mg tablet 3.125 mg PO BID 90 days #180 tabs 11/06/21 12/29/21 Rx lisinopril 20 mg tablet 20 mg PO DAILY #90 tabs 11/06/21 12/29/21 Rx ciprofloxacin HCl 250 mg tablet 250 mg PO BID #10 tabs 02/05/22 Rx (Cipro) fluticasone propionate 50 1 - 2 spray intranasal DAILY #18.2 02/05/22 Rx mcg/actuation nasal mL spray,suspension umeclidinium 62.5 mcg-vilanterol 1 ea inhalation DAILY #60 ea 03/22/22 Rx 25 mcg/actuation powdr for inhalation (Anoro Ellipta) diclofenac sodium 1 % topical gel See Rx Instructions .Route 03/30/22 Rx .COMPLEX #300 grams gabapentin 100 mg capsule See Rx Instructions .Route 03/30/22 Rx .COMPLEX #60 caps Allergies Allergy/AdvReac Type Severity Reaction Status Date / Time latex Allergy Intermediate SEVERE Verified 12/29/21 14:22 ITCHING cephalexin Allergy Mild RASH Verified 12/29/21 14:22 Past Med/Surg History Medical History ARF (acute renal failure) Arthritis, multiple joint involvement Balance problems Bradycardia Cellulitis COPD (chronic obstructive pulmonary disease) Dyspnea on exertion HFrEF (heart failure with reduced ejection fraction) HTN (hypertension) Hypercholesterolemia Impaired fasting glucose Nocturia Osteoporosis Right arm cellulitis Secondary hypothyroidism Syncope Syncope and collapse (05/15/14) Syncope and collapse UTI (urinary tract infection) Surgical History H/O: hysterectomy History of breast biopsy History of bunionectomy History of carpal tunnel surgery History of inguinal hernia repair History of myringotomy History of rotator cuff surgery Jul 2011--Dr. Whitten Hx of adenoidectomy Hx of tonsillectomy S/P appendectomy S/P cholecystectomy Family History Mother Alzheimer disease Family/Other No problems noted. Father Emphysema, unspecified Grandfather (Maternal) Colorectal cancer Uncle Prostate cancer Denies family history of Ovarian cancer Coronary heart disease Heart disease Myocardial infarction Breast cancer Social History Smoking Status: Former smoker Tobacco Type: Cigarettes Age Started Using Tobacco: 23; Age Quit Using Tobacco: 61; Cigarettes Per Day: 1 ppd; Number of Years Since Quit: 30; Second Hand Exposure: No; Hx Alcohol Use: Yes Alcohol type: wine Alcohol Intake Frequency Comment: social Hx Substance Use: No Preferred Language: Tajik Communication Ability: Effective Visual Impairment: Limited Hearing Ability: Use of Hearing Aid Data Programmer Required: No Beliefs That Will Affect Care: None marital status: / Current Living Situation: Alone and Personal Care Facility Current Living Situation Comment: Independent living facility current occupational 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[employer] How many Children do You have: 2 Feels Safe at Home: Yes Childhood Exposure to Second-Hand Smoke: Yes caffeine: Yes Dental Care, Regularly: No Physical Activity Frequency: Does not Exercise Seatbelt Use: always Sunscreen Use: No Assistive Devices: Cane, Denture - Upper, Denture - Lower, Glasses and Hearing Aid - Bilateral Review of Systems A total of 10 systems reviewed and were otherwise negative Physical Exam Vital Signs Vital Signs - 24 hr 04/29/22 07:00 04/29/22 07:35 Temperature 36.5 C Temperature Source Oral Pulse Rate 62 Respiratory Rate 14 Respiratory Effort / Characteristics Non-Labored Respiratory Depth Normal Respiratory Pattern Regular Blood Pressure 152/75 H Blood Pressure Mean 100 Blood Pressure Position Lying Pulse Oximetry 95 99 Oxygen Delivery Method Room Air Room Air Sepsis Recent Fever Within 48 Hours No Sepsis New/Unexplained Change in Mental Status N/A Sepsis Action Taken by Nursing No Action Required CONSTITUTIONAL/VITAL SIGNS: Reviewed / noted above. GENERAL: Non-toxic in appearance. INTEGUMENTARY: Warm, dry, and [place]. HEAD: Normocephalic. EYES: without scleral icterus or trauma. ENT/OROPHARYNX: clear and moist. LYMPHADENOPATHY/NECK: Is supple without lymphadenopathy or meningismus. RESPIRATORY: Clear to auscultation bilaterally. No increased work of breathing. CARDIOVASCULAR: Regular rate and rhythm. GI/ABDOMEN: Soft and nontender. No organomegaly or pulsatile mass. EXTREMITIES: Warm and well perfused. BACK: No CVA tenderness. Some tenderness is noted in the right posterior lateral rib region. There is also a bruise there. The patient states that she lost her balance and fell against a dresser last week causing the injury. NEUROLOGICAL: Intact without focal deficits. PSYCHIATRIC: normal affect. MUSCULOSKELETAL: Normally developed with good muscle tone. TRIAGE NURSING DOCUMENTATION REVIEWED. Course Administered Medications Discontinued Medications Acetaminophen (Acetaminophen 500 Mg Tab) 500 mg PO NOW STA Stop: 04/29/22 07:50 Last Admin: 04/29/22 08:01 Dose: 500 mg Documented By: CODIE Sodium Chloride (Nss 1000ml) 1,000 mls @ 999 mls/hr IV .Q1H1M GARO Stop: 04/29/22 08:30 Last Admin: 04/29/22 07:38 Dose: 999 mls/hr Documented By: CODIE Medical Decision Making Differential Diagnosis Differential includes acute coronary syndrome, myocardial infarction, CVA, TIA, anemia, infection, pneumonia, UTI, pyelonephritis, poor nutrition, dehydration, electrolyte disturbance,hypoglycemia. Medical Records Attestation: I reviewed the patient's medical records. Home Medications Current Medication List: was personally reviewed by me Laboratory Data Attestation: I reviewed the patient's lab results. Result diagrams: 04/29/22 07:40 04/29/22 07:40 Lab Results 04/29/22 04/29/22 04/29/22 Range/Units 07:40 07:40 07:40 WBC 7.73 (4.8-10.8) K/ul RBC 3.86 L (3.93-5.22) M/uL Hgb 12.1 (12.0-16.0) g/dl Hct 37.8 (34.1-44.9) % MCV 97.9 (80.0-100.0) fL MCH 31.3 (25.0-34.0) pg MCHC 32.0 (32.0-36.0) g/dL RDW Std Deviation 47.6 H (36.4-46.3) fL RDW Coeff of Stiven 13.2 (11.5-14.5) % Plt Count 230 (130-400) K/uL MPV 9.3 L (9.4-12.3) fL Immature Gran % (Auto) 0.6 % Neut % (Auto) 71.8 % Lymph % (Auto) 14.2 % [place] % (Auto) 8.9 % Eos % (Auto) 3.6 % Baso % (Auto) 0.9 % Neut # (Auto) 5.54 (1.4-6.5) K/uL Lymph # (Auto) 1.10 L (1.2-3.4) K/uL Frederick # (Auto) 0.69 (0.24-0.82) K/uL Eos # (Auto) 0.28 (0-0.50) K/uL Baso # (Auto) 0.07 (0-0.2) K/uL Immature Gran # (Auto) 0.05 H (0.00-0.02) K/uL Sodium 139 (136-145) mmol/L Potassium 4.6 (3.5-5.1) mmol/L Chloride 106 (98-107) mmol/L Carbon Dioxide 27 (21-32) mmol/L Anion Gap 6 (3-11) BUN 41 H (6-23) mg/dl Creatinine 1.33 H (0.6-1.2) mg/dl Est Cr Clr Drug Dosing 27.5 ml/min Est GFR ( Amer) 41.6 ml/min Est GFR (Non-Af Amer) 35.9 ml/min BUN/Creatinine Ratio 30.8 H (10-20) Glucose 113 H (70-99(Fasting)) mg/dl Calcium 9.2 (8.5-10.1) mg/dl Total Bilirubin 0.6 (0.2-1.0) mg/dl AST 15 (13-39) U/L ALT 9 (7-52) U/L Alkaline Phosphatase 50 (34-104) U/L Troponin I High Sens 99.0 H* (0-14) pg/ml Total Protein 7.1 (6.0-8.3) gm/dl Albumin 3.6 (3.4-5.0) gm/dl Globulin 3.5 (2.5-4.0) gm/dl Albumin/Globulin Ratio 1.0 (0.9-2) TSH 7.617 H (0.300-4.500) uIu/ml Imaging Data Radiologist's Impression: Chest X-Ray 04/29/22 07:20 XR chest 1V portable HISTORY: 86 years-old Female weakness acute nausea and vomiting with weakness COMPARISON: Chest radiograph 10/06/2021 TECHNIQUE: Portable AP view of the chest FINDINGS: Cardiac silhouette is enlarged. Atherosclerosis of the thoracic aorta. No pneumothorax or large pleural effusion. Unchanged blunting of the costophrenic angles. Chronic interstitial coarsening. Degenerative changes of the shoulders and spine. IMPRESSION: No acute process. ACT 112: Negative or not required by law. The above report was generated using voice recognition software. It may contain grammatical, syntax or spelling errors. Electronically signed by: Chema Salcedo M.D. 04/29/2022 7:58 AM ECG Data Attestation: I personally reviewed and interpreted this ECG as follows: Additional Comments: 12 Lead EKG: Per my interpretation shows a sinus rhythm at a rate of 68. No ST elevation. No PVCs. Normal QTC. No significant change from September 2021. MDM Narrative 86-year-old female presents with a chief complaint of some lightheadedness, weakness, nausea and vomiting x1 this morning. Currently stating she is feeling better than she did at home. Symptoms started when she awoke to go to the bathroom. Patient also reports a fall last week with some right lateral rib pain. Chest x-ray did not show acute pulmonary process but there is likely some subacute rib fractures of 7 and 8 on the right. Vital signs reveal mild hypertension. Otherwise stable. Exam did not reveal any obvious abnormalities. No abnormal neurologic findings. The patient CBC was normal. Chemistry panel shows an elevated BUN of 41 and creatinine 1.33. The patient's glucose was 113. Troponin is elevated at 99. Chemistry panel was otherwise unremarkable. TSH is elevated. Twelve-lead EKG shows a sinus rhythm without any acute ischemic changes. The patient was told the results of the test. She was treated with some IV fluids as well as some p.o. Tylenol. Aspirin p.o. was also administered. Impression & Plan Episodic lightheadedness, Nausea & vomiting, Elevated troponin, Rib fracture Discharge Plan Visit Data Chief Complaint: Illness Stated Complaint: Dizziness, Weakness, Vomiting ED Provider: Norberto Melchor Discharge Problem: Episodic lightheadedness, Nausea & vomiting, Elevated troponin, Rib fracture Patient Disposition: Being Evaluated by Hospitalist Forms Stand Alone Forms: My [facility] [employer] Prescriptions Prescriptions: No Action fluocinonide 0.05 % cream 1 applic topical DAILY Label Comments: Apply on the head for Psoriasis triamcinolone acetonide 0.1 % cream 1 applic topical DIRECTED PRN (Reason: Skin Irritation) Label Comments: Applied on the back for Psoriasis Rx Instructions: apply to dermatitis on trunk and extremities twice a day until till healed then as needed carvedilol 3.125 mg tablet 3.125 mg PO BID 90 Days Qty: 180 1RF lisinopril 20 mg tablet 20 mg PO DAILY Qty: 90 3RF ciprofloxacin HCl [Cipro] 250 mg tablet 250 mg PO BID Qty: 10 0RF fluticasone propionate 50 mcg/actuation spray,suspension 1 - 2 spray intranasal DAILY Qty: 18.2 5RF Anoro Ellipta 62.5-25 mcg/actuation blister with device 1 ea inhalation DAILY Qty: 60 5RF diclofenac sodium 1 % gel See Rx Instructions .ROUTE .COMPLEX Qty: 300 1RF Dose Instruction: APPLY TOPICALLY 2G 4 TIMES A DAY NEEDED FOR PAIN Rx Instructions: APPLY TOPICALLY 2G 4 TIMES A DAY NEEDED FOR PAIN gabapentin 100 mg capsule See Rx Instructions .ROUTE .COMPLEX Qty: 60 5RF Dose Instruction: TAKE 2 CAPSULES BY MOUTH AT BEDTIME Rx Instructions: TAKE 2 CAPSULES BY MOUTH AT BEDTIME cholecalciferol (vitamin D3) 125 mcg (5,000 unit) tablet 125 mcg PO DAILY aspirin 81 mg tablet,delayed release (DR/EC) 81 mg PO 3XWK Label Comments: 81 mg PO 3 times weekly; Rx Instructions: TAKES TUESDAY, TUESDAY, & FRIDAYS. albuterol sulfate 90 mcg/actuation HFA aerosol inhaler 2 puff inhalation Q4H PRN (Reason: Shortness Of Breath) Qty: 1 calcium carbonate [Calcium 600] 600 mg calcium (1,500 mg) tablet 1,200 mg PO DAILY Probiotic 3 billion cell capsule 6,000 mmu cells PO DAILY Rx Instructions: administer with a meal nystatin 100,000 unit/gram cream 1 applic topical DAILY PRN (Reason: fungal) PreserVision AREDS [id number] capsule 1 cap PO BID magnesium 250 mg tablet 250 mg PO DAILY Qty: 30 0RF Rx Instructions: OTC Referrals Referrals: Best Sow MD [Primary Care Provider] -
[2022-04-29] MEDS ORDERED: ACETAMINOPHEN 500 MG TAB PO STA (07:49)
[2022-04-29 07:51] LABS: Basophils # (auto) 0.07 K/uL (0-0.2); Basophils % (auto) 0.9 %; Eosinophils # (auto) 0.28 K/uL (0-0.50); Eosinophils % (auto) 3.6 %; Hematocrit (blood only) 37.8 % (34.1-44.9); Hemoglobin 12.1 g/dl (12.0-16.0); Immature Granulocytes # (auto) 0.05 K/uL (0.00-0.02); Immature Granulocytes % (auto) 0.6 %; Lymphocytes % (auto) 14.2 %; Mean Corpuscular Hemoglobin 31.3 pg (25.0-34.0); Mean Corpuscular Volume 97.9 fL (80.0-100.0); Mean Platelet Volume 9.3 fL (9.4-12.3); Monocytes # (auto) 0.69 K/uL (0.24-0.82); Monocytes % (auto) 8.9 %; Neutrophils # (auto) 5.54 K/uL (1.4-6.5); Neutrophils % (auto) 71.8 %; Platelet Count 230 K/uL (130-400); RDW Coefficient of Variation 13.2 % (11.5-14.5); RDW Standard Deviation 47.6 fL (36.4-46.3); Red Blood Count 3.86 M/uL (3.93-5.22); White Blood Count 7.73 K/ul (4.8-10.8)
--- NOTE | 2022-04-29 08:00 | XRay Report ---
XR chest 1V portable HISTORY: 86 years-old Female weakness acute nausea and vomiting with weakness COMPARISON: Chest radiograph 10/06/2021 TECHNIQUE: Portable AP view of the chest FINDINGS: Cardiac silhouette is enlarged. Atherosclerosis of the thoracic aorta. No pneumothorax or large pleur al effusion. Unchanged blunting of the costophrenic angles. Chronic interstitial coarsening. Degenera tive changes of the shoulders and spine. IMPRESSION: No acute process. ACT 112: Negative or not required by law. The above report was generated using voice recognition software. It may contain grammatical, syntax o r spelling errors. Electronically signed by: Chema Salcedo M.D. 04/29/2022 7:58 AM
[2022-04-29 08:29] LABS: Thyroid Stimulating Hormone 7.617 uIu/ml (0.300-4.500)
[2022-04-29 08:47] LABS: Albumin Level 3.6 gm/dl (3.4-5.0); BUN Creatinine Ratio 30.8 (10-20); Bilirubin,Total 0.6 mg/dl (0.2-1.0); Calcium 9.2 mg/dl (8.5-10.1); Creatinine Clr Calc Pharmacy 27.5 ml/min; Est GFR (African American) 41.6 ml/min; Est GFR (Non-African American) 35.9 ml/min; Globulin 3.5 gm/dl (2.5-4.0); Potassium 4.6 mmol/L (3.5-5.1); Total Protein 7.1 gm/dl (6.0-8.3)
[2022-04-29] MEDS ORDERED: ASPIRIN CHEW 324 MG PO STA (09:02)
[2022-04-29 09:54] LABS: Appearance Urine Clear (Clear); Bacteria Urine Automated Negative (Negative); Bilirubin Urine Negative (Negative); Blood Urine Negative (Negative); Cast Urine Automated 0 /lpf (0-5); Color Urine Yellow; Epithelial Cell Urine Auto 20-30 /lpf (0-5); Glucose Urine UA Negative (Negative); Ketones Urine Negative (Negative); Leukocyte Esterase Urine Trace (Negative); Nitrite Urine Negative (Negative); Protein Urine Negative (Negative); RBC Urine Automated 0-4 /hpf (0-4); Specific Gravity Urine 1.011 (1.000-1.030); Urobilinogen Urine Negative (Negative)
[2022-04-29] MEDS ORDERED: MECLIZINE HCL 25 MG TAB PO STA (09:58)
[2022-04-29] MEDS ORDERED: ONDANSETRON INJ 2 MG/ML 2 ML VIAL IV STA (09:58)
--- NOTE | 2022-04-29 10:48 | History & Physical Report ---
Date of Service April 29, 2022 Assessment & Plan (1) Acute severe vertigo: Plan: Patient had an episode of severe dizziness that likely was vertiginous (rather than orthostatic/lightheadedness), visual change, and significant ataxia this am. 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 Symptoms localize to the posterior circulation territory. Thus - need to rule out a posterior circulation CVA. Plan - * meclizine 25mg po x 1 now, followed by meclizine 12.5mg BID * CT head, CTA head/neck - r/o ICH, r/o acute occlusion, r/o dissection, etc. * MRI brain - r/o acute CVA * echo - r/o thrombus * telemetry * HbA1C, lipids in am * likely to need formal neurology consultation * check orthostatic BPs to be complete * although patient has h/o mild systolic LV dysfunction she appears volume contracted - hydrate with isotonic fluid x 1 liter * continue coreg; hold LEBRON * continue asa 81mg daily Although she has a new LBBB I do not think this was a primary cardiac event leading to her symptoms. See below. (2) Elevated troponin: Plan: Mild elevation. No prior h/o CAD. No ischemic symptoms (cp, dyspnea, etc). Trend the troponins. Echo - check LV wall motion, etc. Telemetry. (3) LBBB (left bundle branch block): Plan: New since her prior EKG in 09/2021. In light of today's events and the mildly elevated troponin certainly need to make sure she does not have CAD. Start with the above plan including echo. (4) HFrEF (heart failure with reduced ejection fraction): Plan: Previous echo in 2020 showed EF of 45-50%. Repeat echo ordered as part of w/u for #1 above. Appears volume contracted on exam today. Gentle fluids tonight, then saline lock. (5) Hypomagnesemia: Plan: Level checked and was wnl. (6) CKD (chronic kidney disease), stage III: Plan: stage 3b baseline CrCL is about 30 baseline creatinine is about 1.1 / 1.2 gentle hydration repeat BMP am (7) Hypercholesterolemia: Plan: last lipid profile was in 2017. repeat lipids in am. (8) HTN (hypertension): Plan: hold LEBRON. continue coreg. (9) Impaired fasting glucose: Plan: HbA1C 6.3% in 09/2021. repeat level in am. (10) COPD (chronic obstructive pulmonary disease): Plan: no exacerbation at this time. continue home inhalers. o2 sats stable. (11) Acute chest wall pain: Plan: right. patient "bumped" into a table at home about 1 week ago. has had pain over the right chest wall since then. check rib films on right - r/o fracture. lidoderm patches in meantime. Plan DVT proph - defer on chemical means until results of CT head have returned (ensure no ICH) I updated the pt's son by phone today History of Present Illness Chief Complaint: severe dizziness, unsteadiness on feet, nausea Primary Care Provider: Best Sow MD 86yo female with h/o CKD stage 3, chronic systolic CHF EF 45-50%, HTN, hyperlipidemia, prior episodes of syncope, and COPD who presents from her home at [facility] via EMS due to an acute episode of severe ataxia, weakness, dizziness/vertigo, and severe nausea. Patient states she felt well yesterday and was in her usual state of health. This am about 0500 she awoke to go to the bathroom. Immediately upon sitting up in bed she had severe dizziness. It was not a lightheadedness but a form of rotation. She attempted to get out of bed but this was extremely difficult. She felt very unsteady and had to hold on to things to ambulate to the bathroom. She finally did arrive in her bathroom and sat down on the toilet. The dizziness was still severe, and she then developed severe nausea. She did not vomit. Her vision was "off" or "distorted" but she did not have obvious visual field cuts or loss of vision. She never had double vision, sensory loss, or focal motor weakness. She voided and had a BM. The nausea continued so she pulled the emergency cord in her bathroom. Nursing arrived, and EMS was then called. She was brought to [facility] ER. The dizziness stayed with her until some time after her arrival here. She denies any prior h/o stroke, TIA, or acute vertigo. She reports seeing the ENT office yesterday for a hearing evaluation and was told everything was "ok" although she does have chronic hearing loss. Denies tinnitus. Denies any recent URI or illness. In addition, she reports 2 other episodes in the last week - 1. she was traveling on the van to a doctor's appointment about 1 week ago and when attempting to get off the van she had an episode of emesis. She thinks she may have had dizziness then but can't confirm such. 2. about 5-6 days ago while in her apartment she lost her footing and fell into a round table, striking the right chest. She has had rib pain since that time. Did not seek medical attention for either episode. Denies LOC or syncope with either event. Records also indicate past episodes of syncope without obvious etiology. Allergies Allergy/AdvReac Type Severity Reaction Status Date / Time latex Allergy Intermediate SEVERE Verified 12/29/21 14:22 ITCHING cephalexin Allergy Mild RASH Verified 12/29/21 14:22 Home Medications Medication Instructions Recorded Confirmed Type cholecalciferol (vitamin D3) 125 125 mcg PO DAILY 10/02/19 04/29/22 History mcg (5,000 unit) tablet aspirin 81 mg tablet,delayed 81 mg PO 3XWK 04/03/20 04/29/22 History release nystatin 100,000 unit/gram topical 1 applic topical DAILY PRN fungal 12/23/20 04/29/22 History cream fluocinonide 0.05 % topical cream 1 applic topical DAILY 01/19/21 04/29/22 History triamcinolone acetonide 0.1 % 1 applic topical DIRECTED PRN 01/19/21 04/29/22 History topical cream Skin Irritation albuterol sulfate 90 mcg/actuation 2 puff inhalation Q4H PRN 04/10/21 04/29/22 History aerosol inhaler Shortness Of Breath #1 g vitamins A,C,Q-mpga-rhupiq 14,320 1 cap PO BID 05/12/21 04/29/22 History unit-226 mg-200 unit capsule (PreserVision AREDS) calcium carbonate 600 mg calcium 1,200 mg PO DAILY 06/16/21 04/29/22 History (1,500 mg) tablet (Calcium) lactobacillus combination no.4 3 6,000 mmu cells PO DAILY 06/16/21 04/29/22 History billion cell capsule (Probiotic) magnesium 250 mg tablet 250 mg PO DAILY #30 tabs 10/09/21 04/29/22 Rx carvedilol 3.125 mg tablet 3.125 mg PO BID 90 days #180 tabs 11/06/21 04/29/22 Rx lisinopril 20 mg tablet 20 mg PO DAILY #90 tabs 11/06/21 04/29/22 Rx fluticasone propionate 50 1 - 2 spray intranasal DAILY #18.2 02/05/22 04/29/22 Rx mcg/actuation nasal mL spray,suspension umeclidinium 62.5 mcg-vilanterol 1 ea inhalation DAILY #60 ea 03/22/22 04/29/22 Rx 25 mcg/actuation powdr for inhalation (Anoro Ellipta) gabapentin 100 mg capsule See Rx Instructions .Route 03/30/22 04/29/22 Rx .COMPLEX #60 caps diclofenac sodium 1 % topical gel See Rx Instructions .Route .COMPLEX 04/29/22 04/29/22 History (Voltaren Arthritis Pain) Past Med/Surg History Medical History (Updated 04/29/22 @ 20:47 by Lyle Singleton) ARF (acute renal failure) Arthritis, multiple joint involvement Balance problems Bradycardia COPD (chronic obstructive pulmonary disease) COVID-19 09/2021 - required hospitalization HFrEF (heart failure with reduced ejection fraction) EF 45-50% - 2020 echo HTN (hypertension) Hypercholesterolemia Impaired fasting glucose Nocturia Osteoporosis Pasteurella infection with bacteremia, 2nd to cat scratch and RUE cellulitis - 06/16 Right arm cellulitis Secondary hypothyroidism Syncope and collapse (05/15/14) UTI (urinary tract infection) recurrent Surgical History H/O: hysterectomy History of breast biopsy History of bunionectomy History of carpal tunnel surgery History of inguinal hernia repair History of myringotomy History of rotator cuff surgery Jul 2011--Dr. Whitten Hx of adenoidectomy Hx of tonsillectomy S/P appendectomy S/P cholecystectomy Family History Mother , multiple CVAs Alzheimer disease Stroke Father Emphysema, unspecified Grandfather (Maternal) Colorectal cancer Uncle Prostate cancer Denies family history of Ovarian cancer Coronary heart disease Heart disease Myocardial infarction Breast cancer Social History (Updated 04/29/22 @ 10:43 by Lyle Singleton) Smoking Status: Former smoker Tobacco Type: Cigarettes Age Started Using Tobacco: 23; Age Quit Using Tobacco: 61; Cigarettes Per Day: 1 ppd; Number of Years Since Quit: 30; Second Hand Exposure: No; Hx Alcohol Use: Yes Alcohol type: wine Alcohol Intake Frequency Comment: social Hx Substance Use: No Preferred Language: Montserratian Communication Ability: Effective Visual Impairment: Limited Hearing Ability: Use of Hearing Aid Marine 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 Required: No Beliefs That Will Affect Care: None marital status: / Current Living Situation: Alone and Personal Care Facility Current Living Situation Comment: Independent living facility ([facility]) current occupational 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[facility] How many Children do You have: 2 Other Information That Helps Us Care for You: No Feels Safe at Home: Yes Safety Concerns: Feels Safe At This Time Childhood Exposure to Second-Hand Smoke: Yes caffeine: Yes Dental Care, Regularly: No Physical Activity Frequency: Does not Exercise Seatbelt Use: always Sunscreen Use: No Assistive Devices: Cane, Denture - Upper, Denture - Lower, Glasses and Hearing Aid - Bilateral Review of Systems Review of Systems: gen - good appetite recently, no fevers/chills eyes - visual disturbance this am but otherwise vision had been ok recently HENT - chronic hearing loss; no dysphagia; no tinnitus neck - no pain CV - no chest pain this am during the episode pulm - no cough or dyspnea GI - nausea but no emesis; no abd pain; no diarrhea - no dysuria musculo - right chest wall pain since her fall into the table at home recently skin - no rash today endo - pre-DM neuro - see HPI; no headache psych - good spirits Physical Exam Physical Exam: gen - NAD, pleasant, good historian eyes - PERRL; EOMI; horizontal nystagmus with leftward gaze; no visual field cuts with direct confrontation HENT - TMs clear b/l; MM dry; no lesions neck - no JVD; no bruits CV - RRR, PACs, s1 s2, no murmur lungs - CTA b/l chest - very tender to palpation over right lateral chest abd - soft, mildly distended, BS+, NT ext - trace edema, pulses 2+ b/l neuro - strength 5/5 x 4 exts; CN 3-12 intact; finger/nose/finger maneuver w/o ataxia; sensory intact light touch x 4 exts; gait not tested skin - no signs of trauma or rash lymph - no cervical lymph nodes psych - a/o x 3 Results & Data Results & Data ([facility]) Vital Signs (Past 12 Hours) Vital Signs Temp Pulse Resp BP Pulse Ox O2 Del Method 04/29/22 09:01 67 17 94 Room Air 04/29/22 09:01 164/71 H 04/29/22 09:00 64 16 95 Room Air 04/29/22 08:30 61 16 94 Room Air 04/29/22 08:30 171/69 H 04/29/22 08:01 181/77 H 04/29/22 08:01 62 23 95 Room Air 04/29/22 07:35 99 Room Air 04/29/22 07:00 36.5 C 62 14 152/75 H 95 Room Air Laboratory Results Laboratory Results - last 24 hr 04/29/22 04/29/22 04/29/22 07:40 07:40 07:40 WBC 7.73 RBC 3.86 L Hgb 12.1 Hct 37.8 MCV 97.9 MCH 31.3 MCHC 32.0 RDW Std Deviation 47.6 H RDW Coeff of Stiven 13.2 Plt Count 230 MPV 9.3 L Immature Gran % (Auto) 0.6 Neut % (Auto) 71.8 Lymph % (Auto) 14.2 Parke % (Auto) 8.9 Eos % (Auto) 3.6 Baso % (Auto) 0.9 Neut # (Auto) 5.54 Lymph # (Auto) 1.10 L Parke # (Auto) 0.69 Eos # (Auto) 0.28 Baso # (Auto) 0.07 Immature Gran # (Auto) 0.05 H Sodium 139 Potassium 4.6 Chloride 106 Carbon Dioxide 27 Anion Gap 6 BUN 41 H Creatinine 1.33 H Est Cr Clr Drug Dosing 27.5 Est GFR ( Amer) 41.6 Est GFR (Non-Af Amer) 35.9 BUN/Creatinine Ratio 30.8 H Glucose 113 H Calcium 9.2 Total Bilirubin 0.6 AST 15 ALT 9 Alkaline Phosphatase 50 Troponin I High Sens 99.0 H* Total Protein 7.1 Albumin 3.6 Globulin 3.5 Albumin/Globulin Ratio 1.0 TSH 7.617 H Free T4 1.00 Urine Color Urine Appearance Urine pH Ur Specific [place] Urine Protein Urine Glucose (UA) Urine Ketones Urine Blood Urine Nitrite Urine Bilirubin Urine Urobilinogen Ur Leukocyte Esterase Urine WBC (Auto) Urine RBC (Auto) U Hyaline Cast (Auto) U Epithel Cells (Auto) Urine Bacteria (Auto) SARS-CoV-2, RNA, NAAT 04/29/22 04/29/22 09:15 09:15 WBC RBC Hgb Hct MCV MCH MCHC RDW Std Deviation RDW Coeff of Stiven Plt Count MPV Immature Gran % (Auto) Neut % (Auto) Lymph % (Auto) Parke % (Auto) Eos % (Auto) Baso % (Auto) Neut # (Auto) Lymph # (Auto) Parke # (Auto) Eos # (Auto) Baso # (Auto) Immature Gran # (Auto) Sodium Potassium Chloride Carbon Dioxide Anion Gap BUN Creatinine Est Cr Clr Drug Dosing Est GFR ( Amer) Est GFR (Non-Af Amer) BUN/Creatinine Ratio Glucose Calcium Total Bilirubin AST ALT Alkaline Phosphatase Troponin I High Sens Total Protein Albumin Globulin Albumin/Globulin Ratio TSH Free T4 Urine Color Yellow Urine Appearance Clear Urine pH 7.0 Ur Specific [place] 1.011 Urine Protein Negative Urine Glucose (UA) Negative Urine Ketones Negative Urine Blood Negative Urine Nitrite Negative Urine Bilirubin Negative Urine Urobilinogen Negative Ur Leukocyte Esterase Trace H Urine WBC (Auto) 5-10 H Urine RBC (Auto) 0-4 U Hyaline Cast (Auto) 0 U Epithel Cells (Auto) 20-30 H Urine Bacteria (Auto) Negative SARS-CoV-2, RNA, NAAT NEGATIVE Diagnostic Findings Chest X-Ray 04/29/22 07:20 XR chest 1V portable HISTORY: 86 years-old Female weakness acute nausea and vomiting with weakness COMPARISON: Chest radiograph 10/06/2021 TECHNIQUE: Portable AP view of the chest FINDINGS: Cardiac silhouette is enlarged. Atherosclerosis of the thoracic aorta. No p neumothorax or large pleural effusion. Unchanged blunting of the costophrenic angles. Chronic interstitial coarsening. Degenerative changes of the shoulders and spine. IMPRESSION: No acute process. ACT 112: Negative or not required by law. The above report was generated using voice recognition software. It may contain grammatical, syntax or spelling errors. Electronically signed by: Chema Salcedo M.D. 04/29/2022 7:58 AM EKG - my reading - NSR, LBBB, lateral T wave changes; LBBB is new Code Status & VTE Plan Code Status full code PG Care Time/CCT Total # of Minutes Spent Total Time Spent with Patient: Total time spent is greater than 50% in coordination of care (as documented) at patient's floor/unit and/or counseling patient: Coding Level of Care Code 65875 Initial Inpt Care Lvl 3 Diagnoses Acute severe vertigo R42 Elevated troponin R77.8 LBBB (left bundle branch block) I44.7 HFrEF (heart failure with reduced ejection fraction) I50.20 Hypomagnesemia E83.42 CKD (chronic kidney disease), stage III N18.30 Hypercholesterolemia E78.00 HTN (hypertension) I10 Impaired fasting glucose R73.01 COPD (chronic obstructive pulmonary disease) J44.9 Acute chest wall pain R07.89
[2022-04-29] MEDS ORDERED: ALBUTEROL HFA 8 GM INHALER INH PRN (12:17)
[2022-04-29] MEDS ORDERED: DICLOFENAC SOD 1% GEL 100 GM TUBE EXT PRN (12:17)
[2022-04-29] MEDS ORDERED: ONDANSETRON INJ 2 MG/ML 2 ML VIAL IV PRN (12:17)
[2022-04-29] MEDS ORDERED: PHARMACIST DISCHARGE MED REC CONSULT PRN (12:17)
[2022-04-29] MEDS ORDERED: ACETAMINOPHEN 325 MG TAB PO PRN (12:17)
[2022-04-29] MEDS ORDERED: NITROGLYCERIN SL 0.4 MG/TAB TAB SL PRN (12:17)
[2022-04-29] MEDS ORDERED: OPTIRAY 320 125ml IV ONE (13:17)
--- NOTE | 2022-04-29 13:51 | CT Scan Report ---
CT head/brain wo con, CT angio neck with con, CT angio head w con CLINICAL HISTORY: 86 years-old Female with acute vertigo/ataxia. Acute vertigo with ataxia and dizzi ness TECHNIQUE: Multiple axial CT images of the head were obtained without contrast. CTA head and neck was also obtained following the intravenous administration of 120 mL Optiray 320. 3-D coronal and sagitt al MIPS were obtained from the axial data set and were submitted for review. All measurements were ob tained according to NASCET criteria. A dose lowering technique was utilized adhering to the principle s of ALARA. COMPARISON: None. FINDINGS: CTA HEAD: No acute intracranial hemorrhage, midline shift, intracranial mass, hydrocephalus, territorial ischem ia or abnormal extra-axial collection. Age-related involutional changes. White matter hypodensities s uggest chronic microvascular ischemic disease. Study is motion degraded. A portion of the exam was th en repeated. Senescent calcifications of the basal ganglia. Vascular calcifications. Nonspecific heterogeneity of the skull. No acute calvarial fracture. The paranasal sinuses, mastoid air cells, and middle ear cavities are clear. CTA HEAD AND NECK: There is prominent atherosclerotic plaque of the thoracic aortic arch and proximal great vessels. The re is 50% luminal narrowing of the proximal left subclavian artery. There is high-grade (at least 70% ) stenosis at the origin of the right subclavian artery. The innominate artery is patent. Atherosclerotic plaque of the common carotid arteries without high-grade stenosis. Atherosclerotic pl aque of the left carotid bulb results in less than 50% narrowing. Atherosclerotic plaque of the right carotid bulb results in 70% stenosis of the proximal cervical segment right ICA on image 210. The re mainder of the internal carotid arteries are patent. Atherosclerosis of the cavernous, clinoid and miller praclinoid segments without high-grade stenosis. The middle and anterior cerebral arteries are patent . Mild stenosis at the origin of the left vertebral artery. The remainder of the left vertebral arter y is widely patent. There is approximately 50% luminal narrowing at the origin of the right vertebral artery. There is occlusion of the the one segment of the right vertebral artery as seen on image 137 with reconstitution of flow within the distal V2 segment at the level of C1-C2. There is diminished flow within the distal right vertebral artery compared to the left. The basilar and posterior cerebra l arteries are patent. Cerebral venous sinuses are patent. There is no abnormal intracranial enhancem ent. IMPRESSION: 1. Motion degraded exam without acute intracranial abnormality. 2. 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 3. 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 4. 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 ACT 112: Negative or not required by law. The above report was generated using voice recognition software. It may contain grammatical, syntax o r spelling errors. Electronically signed by: Chema Salcedo M.D. 04/29/2022 1:49 PM
[2022-04-29] MEDS: UMECLIDINIUM/VILANTEROL 62.5/25MCG 7 PUFFS/INHALER INH SCH (15:11)
[2022-04-29] MEDS: LIDOCAINE 5% 1 PATCH TD SCH (15:12)
[2022-04-29] MEDS ORDERED: LORazepam 0.5 MG TAB PO STA (16:23)
--- NOTE | 2022-04-29 17:31 | XCELERA ---
[id number]
--- NOTE | 2022-04-29 17:39 | XRay Report ---
XR ribs RT min 2V CLINICAL HISTORY: recent fall, right rib pain COMPARISON: Chest radiograph October 06, 2021 and April 29, 2022. FINDINGS: Contrast within the right collecting system is from recent contrast-enhanced CT. There are old, healed fractures of the right seventh and eighth ribs. No acute right rib fractures are identif ied. No right pneumothorax is identified on this exam. IMPRESSION: No acute right rib fractures identified. No right pneumothorax. Old, healed right seventh and eighth rib fractures. ACT 112: Negative or not required by law. Electronically signed by: Oleksandr Napier M.D. 04/29/2022 5:38 PM
--- NOTE | 2022-04-29 18:03 | Magnetic Resonance Report ---
Brain MRI WITHOUT CONTRAST HISTORY: acute vertigo/ataxia/visual change; eval CVA TECHNIQUE: Multiplanar multisequence MRI of the brain was performed without the use of contrast. COMPARISON STUDY: Head CT 04/29/2022. Brain MRI 03/05/2019. FINDINGS: Motion artifact. There is no mass, hematoma, midline shift, or acute infarct. The paranasal sinuses are clear. The mastoid air cells are clear. The ventricles and sulci demonstrate mild age-re lated involutional changes. Patchy and scattered foci of T2 hyperintensity seen within the periventri cular and subcortical white matter are nonspecific but suggestive of advanced microvascular ischemic changes. This has slightly progressed in the interval. The major vascular flow voids at the skull bas e are well-maintained. IMPRESSION: 1. Motion artifact. No definite acute intracranial abnormality. 2. Advanced microvascular ischemic changes are again noted. This has slightly progressed in the inter melisa. ACT 112: Negative or not required by law. Electronically signed by: Elmer Arizmendi M.D. 04/29/2022 6:00 PM
--- NOTE | 2022-04-29 18:46 | Electrocardiogram Report ---
Test Reason : Blood Pressure : / mmHG Vent. Rate : 068 BPM Atrial Rate : 068 BPM P-R Int : 204 ms QRS Dur : 132 ms QT Int : 458 ms P-R-T Axes : 088 -16 152 degrees QTc Int : 487 ms Poor data quality, interpretation may be adversely affected Sinus rhythm with Premature atrial complexes Left bundle branch block Abnormal ECG When compared with ECG of 06-OCT-2021 15:13, Premature atrial complexes are now Present Left bundle branch block is now Present Confirmed by Adam Aguilar ([id number]) on 04/29/2022 6:46:20 PM Referred By: REFERRED SELF Confirmed By:Rob Aguilar
[2022-04-29] MEDS: carvediloL 3.125 MG TAB PO SCH (20:40)
[2022-04-29] MEDS: CEROVITE ADV FORMULA TAB PO SCH (20:40)
[2022-04-29] MEDS: MECLIZINE 12.5 MG TAB PO SCH (20:41)
[2022-04-29] MEDS: GABAPENTIN 100 MG CAP PO SCH (20:41)
[2022-04-30 07:04] LABS: Basophils # (auto) 0.08 K/uL (0-0.2); Basophils % (auto) 1.1 %; Eosinophils # (auto) 0.35 K/uL (0-0.50); Eosinophils % (auto) 4.9 %; Hematocrit (blood only) 34.2 % (34.1-44.9); Hemoglobin 10.7 g/dl (12.0-16.0); Immature Granulocytes # (auto) 0.04 K/uL (0.00-0.02); Immature Granulocytes % (auto) 0.6 %; Lymphocytes # (auto) 1.37 K/uL (1.2-3.4); Lymphocytes % (auto) 19.2 %; Mean Corpuscular Hemoglobin 30.9 pg (25.0-34.0); Mean Corpuscular Hgb Conc 31.3 g/dL (32.0-36.0); Mean Corpuscular Volume 98.8 fL (80.0-100.0); Mean Platelet Volume 9.4 fL (9.4-12.3); Monocytes % (auto) 8.4 %; Neutrophils # (auto) 4.71 K/uL (1.4-6.5); Neutrophils % (auto) 65.8 %; Platelet Count 217 K/uL (130-400); RDW Coefficient of Variation 13.3 % (11.5-14.5); RDW Standard Deviation 47.6 fL (36.4-46.3); Red Blood Count 3.46 M/uL (3.93-5.22); White Blood Count 7.15 K/ul (4.8-10.8)
[2022-04-30 07:39] LABS: BUN Creatinine Ratio 27.5 (10-20); Chol HDL Ratio 2.7 (0-5); Creatinine Clr Calc Pharmacy 28.7 ml/min; Est GFR (African American) 42.3 ml/min; Est GFR (Non-African American) 36.5 ml/min; Potassium 4.8 mmol/L (3.5-5.1)
[2022-04-30 08:13] LABS: Estimated Average Glucose 117 mg/dl; Hemoglobin A1C 5.7 % (4.5-5.6)
--- NOTE | 2022-04-30 08:48 | Neurology Consultation ---
Date of Consultation April 30, 2022 Assessment & Plan (1) Acute severe vertigo: (2) Balance problems: (3) Vertebrobasilar insufficiency: (4) Carotid stenosis, right: (5) Vertebral artery stenosis: (6) Chronic cerebral ischemia: Plan this patient has intermittent episodes of syncope in the past as well as dizziness consistent with a vertiginous quality. Currently she has no focal neurologic findings, meningeal signs, or encephalopathy. She is very hard of hearing and wears hearing aids. She has tinnitus. I believe she has an inner ear issue giving her the symptoms. Compound and this is a likely vertebral basilar insufficiency and she has significant stenoses in the right vertebral and right internal carotid arteries. This is despite aspirin. She has no stroke on MRI brain but does have extensive small vessel ischemic disease. Her risk factors include former cigarette smoking, advanced age, history of hypertension, and pre diabetes. TSH is elevated as well. Recommendations: 1. Given her age and condition I would not elect for vascular surgery at this time. 2. consider switching aspirin to clopidogrel 75 mg daily. This may help stabilize (or even open up) stenotic vessels 3. Meclizine as needed for the vertiginous issues. Unfortunately, there is probably very little we can do for her intermittent vertigo otherwise. 4. Cardiology to address elevated troponin 5. increase activity as able and obtain speech, occupational, and physical science professor apy consultations. Overall, I spent a total of 100 minutes with this case including review of records, review of MRI films, direct evaluation of the patient at bedside, and discussion of the case with the patient and RN at bedside, and Dr. Singleton, including differential diagnosis and treatment options. History of Present Illness Reason for Consultation: Patient is an 86-year-old, who was asked to see the request of Dr. Singleton, for neurologic consultation regarding dizziness and other issues. Requesting Physician: Dr. Singleton Attending Physician: Lyle Singleton History of Present Illness patient has a longstanding history of hypertension, COPD, and pre diabetes. She has been on 81 mg aspirin tablet for many years. She has chronic hearing loss and some tinnitus in the left ear. Patient had her 1st syncopal episode in 2013. Second episode was in 2019. these episodes consisted of a warning of some "dizziness" ( which consisted of some sensation of movement side to side, but no specific whirling or lightheadedness like she was going to faint ), accompanied by some nausea and vomiting. She would then pass out have a loss of consciousness for a minute or so ( timing really not known ). When she woke up she was incontinent of bowel and bladder but did not bite her tongue. No one witnessed convulsive activity. Apparently her valuation was unremarkable for cardiac issues. The carotid ultrasound at that time showed plaque without significant stenoses. Over the last year or so she has had 2 episodes of syncope, most recently in January of 2022. Apparently she recalls no warning this time she woke up on the floor in the laundry room. There was incontinence of urine but no tongue biting. around 0, April 29 she woke to go to the bathroom. As she sat up in bed she had a woozy feeling that made her sway side to side. He was not lightheadedness like she was going to faint and it was not a true vertigo. She did get some nausea and vomiting. She did not feel particularly pulled in any direction. After she said a while and realize the sensation was not going away she did have to go to the bathroom show she got up and managed to stagger into the bathroom. She felt weak in general but did not have any syncope. She arrived to the emergency room April for that 07 with a temperature 36.5, pulse 62 and regular, respiratory rate 14 and comfortable, blood pressure 152/75, and O2 saturation 95%. Neurologic examination revealed no focal deficits or abnormal findings. The patient herself felt that she still had a little bit of wooziness in the ER. She denied pain, headache, numbness, or any focal weakness. Her speech was not affected. CBC was unremarkable. Chem profile was largely unremarkable as well. Glucose was 113 and TSH was elevated at 7.6. Troponin was elevated at 99. Echocardiogram showed some mild mitral regurgitation left atrial enlargement slightly worse in general compared to the previous echocardiogram of April 2021. chest x-ray was unremarkable. CT scan of the head showed no acute changes. CT angiography of the head and neck revealed occlusion in the right V1 segment with flow again up distally at C1 to. There was a 70% stenosis in the proximal right internal carotid artery and high-grade stenosis at the origin of the right subclavian Artery. MRI of the brain revealed no acute stroke. There was extensive old small vessel ischemic disease and mild to moderate generalized atrophy consistent with age. I reviewed these films This morning she is largely asymptomatic although may have a little bit of residual wooziness. She feels like she has to be cautious when she sits up or stands to pivot to the bathroom. She has no other new symptoms. Allergies Allergy/AdvReac Type Severity Reaction Status Date / Time latex Allergy Intermediate SEVERE Verified 12/29/21 14:22 ITCHING cephalexin Allergy Mild RASH Verified 12/29/21 14:22 Home Medications Medication Instructions Recorded Confirmed Type cholecalciferol (vitamin D3) 125 125 mcg PO DAILY 10/02/19 04/29/22 History mcg (5,000 unit) tablet aspirin 81 mg tablet,delayed 81 mg PO 3XWK 04/03/20 04/29/22 History release nystatin 100,000 unit/gram topical 1 applic topical DAILY PRN fungal 12/23/20 04/29/22 History cream fluocinonide 0.05 % topical cream 1 applic topical DAILY 01/19/21 04/29/22 History triamcinolone acetonide 0.1 % 1 applic topical DIRECTED PRN 01/19/21 04/29/22 History topical cream Skin Irritation albuterol sulfate 90 mcg/actuation 2 puff inhalation Q4H PRN 04/10/21 04/29/22 History aerosol inhaler Shortness Of Breath #1 g vitamins A,C,P-[id number] 14,320 1 cap PO BID 05/12/21 04/29/22 History unit-226 mg-200 unit capsule (PreserVision AREDS) calcium carbonate 600 mg calcium 1,200 mg PO DAILY 06/16/21 04/29/22 History (1,500 mg) tablet (Calcium) lactobacillus combination no.4 3 6,000 mmu cells PO DAILY 06/16/21 04/29/22 History billion cell capsule (Probiotic) magnesium 250 mg tablet 250 mg PO DAILY #30 tabs 10/09/21 04/29/22 Rx carvedilol 3.125 mg tablet 3.125 mg PO BID 90 days #180 tabs 11/06/21 04/29/22 Rx lisinopril 20 mg tablet 20 mg PO DAILY #90 tabs 11/06/21 04/29/22 Rx fluticasone propionate 50 1 - 2 spray intranasal DAILY #18.2 02/05/22 04/29/22 Rx mcg/actuation nasal mL spray,suspension umeclidinium 62.5 mcg-vilanterol 1 ea inhalation DAILY #60 ea 03/22/22 04/29/22 Rx 25 mcg/actuation powdr for inhalation (Anoro Ellipta) gabapentin 100 mg capsule See Rx Instructions .Route 03/30/22 04/29/22 Rx .COMPLEX #60 caps diclofenac sodium 1 % topical gel See Rx Instructions .Route .COMPLEX 04/29/22 04/29/22 History (Voltaren Arthritis Pain) Patient History Medical History ARF (acute renal failure) Arthritis, multiple joint involvement Balance problems Bradycardia COPD (chronic obstructive pulmonary disease) COVID-19 09/2021 - required hospitalization HFrEF (heart failure with reduced ejection fraction) EF 45-50% - 2020 echo HTN (hypertension) Hypercholesterolemia Impaired fasting glucose Nocturia Osteoporosis Pasteurella infection with bacteremia, 2nd to cat scratch and RUE cellulitis - 06/16 Right arm cellulitis Secondary hypothyroidism Syncope and collapse (05/15/14) UTI (urinary tract infection) recurrent Surgical History H/O: hysterectomy History of breast biopsy History of bunionectomy History of carpal tunnel surgery History of inguinal hernia repair History of myringotomy History of rotator cuff surgery Jul 2011--Dr. Whitten Hx of adenoidectomy Hx of tonsillectomy S/P appendectomy S/P cholecystectomy Family History Mother , in her 80s of multiple CVAs Alzheimer disease Stroke Father , age 78 of COPD complications Emphysema, unspecified COPD (chronic obstructive pulmonary disease) Grandfather (Maternal) Colorectal cancer Uncle Prostate cancer Denies family history of Ovarian cancer Coronary heart disease Heart disease Myocardial infarction Breast cancer Social History Smoking Status: Former smoker Tobacco Type: Cigarettes Age Started Using Tobacco: 23; Age Quit Using Tobacco: 61; Cigarettes Per Day: 1 ppd; Number of Years Since Quit: 30; Second Hand Exposure: No; Hx Alcohol Use: Yes Alcohol type: wine Alcohol Intake Frequency: Monthly or Less Alcohol Intake Frequency Comment: social Hx Substance Use: No Preferred Language: [place] Communication Ability: Effective Visual Impairment: Limited Hearing Ability: Use of Hearing Aid Crisis Worker Required: No Beliefs That Will Affect Care: None marital status: / Current Living Situation: Alone and Personal Care Facility Current Living Situation Comment: Independent living facility ([facility]) current occupational 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[employer], 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 How many Children do You have: 2 Other Information That Helps Us Care for You: No Feels Safe at Home: Yes Safety Concerns: Feels Safe At This Time Childhood Exposure to Second-Hand Smoke: Yes caffeine: Yes Dental Care, Regularly: No Physical Activity Frequency: Does not Exercise Seatbelt Use: always Sunscreen Use: No Assistive Devices: Cane, Denture - Upper, Denture - Lower, Glasses and Hearing Aid - Bilateral Review of Systems Constitutional: + fatigue and + weakness; no fever Eyes: no diplopia, no eye pain and no worsening vision Ear, Nose, Mouth, Throat: + tinnitus, + hearing loss ( wears hearing aids bilaterally) and + dizziness; no ear pain, no snoring, no hoarseness and no dy sphagia Respiratory: no cough and no dyspnea Cardiovascular: no chest pain, no palpitations and no lightheadedness Gastrointestinal: no abdominal pain, no nausea and no vomiting Genitourinary: no dysuria, no urinary frequency and no urinary incontinence Musculoskeletal: + back pain; no neck pain, no radicular pain, no joint pain and no myalgia Integumentary: no rash and no lesions Neurologic: + gait abnormality and + generalized weakness; no localized weakness, no tingling, no numbness, no tremor(s), no abnormal movements, no headache(s), no abnormal speech, no confusion and no memory loss Psychiatric: no depression, no irritability, no anxiety, no difficulty concentrating, no confusion and no hallucinations Endocrine: no fatigue and no flushing Hematologic / Lymphatic: no easy bleeding and no easy bruising Allergy / Immunological: no urticaria and no problem reported Exam (Neuro) Physical Exam: The patient is leftt-handed. The patient is awake, alert, and attentive. Speech is normal without any aphasia or dysarthria. The patient can name objects, repeat phrases, and has normal spontaneous speech. Mentation and thought processes are intact, with orientation to person, place and time, and normal fund of knowledge. Attention and concentration are normal. Mood and affect are normal and appropriate. General appearance and grooming are normal. Short and long-term memory are intact to conversation. Pupils are 3 mm bilaterally and reactive to light. Extraocular eye muscles are intact with some nystagmus in both eyes with right gaze. Fast component is in the direction of the gaze.. Visual acuity and visual fuentes seem normal grossly to confrontation. There are no deficits to sensation in the face in all 3 distributions of the fifth cranial nerve bilaterally. Corneal reflexes are positive bilaterally. Facial strength and symmetry was normal bilaterally. Hearing seems normal bilaterally. Palate moves well without asymmetry. There is normal sternocleidoma stoid and trapezius (shoulder shrug) strength bilaterally. Tongue is midline with good strength bilaterally. Neck has a full range of motion without discomfort. There are no cervical bruits bilaterally. There are no cranial or ocular bruits. Heart is without murmur. There is a regular rhythm and rate. Cervical, thoracic, and lumbar spine are nontender to palpation. Gait is narrow based But very cautious. She needs assistance of 1 for support today. Stance is reasonable eyes open and sways with eyes closed. Stance sitting is reasonable eyes open or closed. With outstretched arms there is no drift. There are no resting, postural, or action tremors. There is no ataxia with finger to nose testing. There is good facility in the hands. No other abnormal involuntary movements are noted. Motor strength is 5/5 diffusely in the arms bilaterally including deltoids, biceps, triceps, brachioradialis, wrist flexors and extensors, audiovisual technician, and intrinsic hand muscles. Motor strength is 5/5 diffusely in the legs bilaterally including hip flexors, quadriceps, hamstrings, gastrocnemius, tibialis anterior, tibialis posterior, and Peroneii muscles. Toe extensors are normal and there is good bulk in the extensor digitorum brevis muscles bilaterally. The limbs have good tone without rigidity or spasticity. There is no atrophy noted in the muscles. Muscle bulk is normal, there is no tenderness to palpation, no myotonia to percussion, and no fasciculations seen. Sensory examination is intact to touch and pin throughout all 4 limbs diffusely. Reflexes are 1/4 in the biceps, triceps, brachioradialis, quadriceps, and Achilles tendons bilaterally. There is no clonus bilaterally. Toes are downgoing with plantar stimulation bilaterally. Peripheral pulses are present and of normal quality distally in all 4 limbs. There is no peripheral edema noted in the limbs. Results & Data ([facility]) Vital Signs (Past 12 Hours) Vital Signs Temp Pulse Pulse Resp BP Pulse Ox Pulse Ox 04/30/22 07:36 36.5 C 63 17 131/62 89 L 04/30/22 07:37 63 04/30/22 07:29 90 04/30/22 03:00 36.5 C 63 20 106/58 L 90 04/29/22 23:00 36.8 C 67 18 103/64 90 O2 Del Method O2 Del Method 04/30/22 07:36 Room Air 04/30/22 07:37 04/30/22 07:29 Room Air 04/30/22 03:00 04/29/22 23:00 PG Care Time/CCT Total # of Minutes Spent Total Time Spent with Patient: Total time spent is greater than 50% in coordination of care (as documented) at patient's floor/unit and/or counseling patient: Coding Level of Care Code 75490 Initial Inpt Care Lvl 3 Diagnoses Acute severe vertigo R42 Balance problems R26.89 Vertebrobasilar insufficiency G45.0 Carotid stenosis, right I65.21 Vertebral artery stenosis I65.09 Chronic cerebral ischemia I67.82 Time Spent (min) 100 Comment Add modifiers as able
[2022-04-30] MEDS ORDERED: ASPIRIN 81 MG ECTAB PO SCH (09:00)
[2022-04-30] MEDS: MAGNESIUM OXIDE 400 MG TAB PO SCH (09:23)
[2022-04-30] MEDS: MECLIZINE 12.5 MG TAB PO SCH ×2 (09:23→20:26)
[2022-04-30] MEDS: CALCIUM 600MG + VIT D 400 IU TAB PO SCH (09:23)
[2022-04-30] MEDS: CEROVITE ADV FORMULA TAB PO SCH ×2 (09:24→20:26)
[2022-04-30] MEDS: CHOLECALCIFEROL 5,000 UNITS 125 MCG TAB PO SCH (09:24)
[2022-04-30] MEDS: carvediloL 3.125 MG TAB PO SCH ×2 (09:24→20:27)
[2022-04-30] MEDS: FLUTICASONE PROPIONATE NA SPR 16 GM BTL SCH (09:25)
[2022-04-30] MEDS: LIDOCAINE 5% 1 PATCH TD SCH (09:26)
[2022-04-30] MEDS: UMECLIDINIUM/VILANTEROL 62.5/25MCG 7 PUFFS/INHALER INH SCH (09:27)
--- NOTE | 2022-04-30 10:05 | Consultation ---
Date of Consultation April 30, 2022 Assessment & Plan (1) Vertebrobasilar insufficiency: On CT angiogram the right vertebral V1 segment is occluded. The V2 segment reconstitutes. It is patent up through the intracranial basilar artery. The left vertebral is extremely large and dominant. This occlusion of the vertebral in the right may be a chronic finding due to the finding of a large left vertebral artery. With the large size left vertebral artery I doubt that her vertebral circulation is contributing to her syncopal episodes unless she gets profoundly hypotensive like she is claimed that she has in the past during her episodes. (2) Carotid stenosis, right: On CT angio there is approximately 70% narrowing of the right common carotid artery and its bifurcation. Being that she has no focal findings no intervention is needed for this stenosis. (3) Subclavian artery stenosis, right: She is still asymptomatic from her right subclavian artery stenosis. No intervention or treatments are needed at this time. I would recommend that we continue the 81 mg of aspirin daily for all above diagnoses. Thank you very much for letting us participate in the care of this patient. Please call for any questions or if needed again. History of Present Illness Reason for Consultation: Right carotid and right subclavian artery stenosis as well as right vertebral occlusion Attending Physician: Lyle Singleton History of Present Illness Patient is an 86-year-old female with a long history of COPD hypertension and prediabetes. She also has chronic hearing loss. She presented with a episode of severe dizziness which felt like a movement from side to side. She has experienced syncopal episodes in the past. The first 1 being in 2013. She was good until 2019 at which time she had a syncopal episode preceded with dizziness. She claims that she would pass out for a minute or 2. She did notice that when she woke up she was incontinent of bowel and bladder. She was not found to have any cardiac disease. In the last year she has had 2 more episodes of syncope. These times she had no dizziness as a warning sign. She does claim that she thinks she was hypotensive with blood pressure down in the 40s during her previous syncopal episodes. Prior to this admission she awoke around 5:00 in the morning. She felt woozy when she got up and was sitting at the side of the bed. She went to the bathroom. She did not have a syncopal episode but felt extremely weak and called for help. She was taken by EMS to the emergency room. At that time she was normotensive. She had a regular heart rate. Her neurologic exam in the ER showed no deficits. She is left-handed but uses her right hand a fair amount. She does not complain of any claudication of her upper or lower extremities. She denies any focal neurological deficits. Allergies Allergy/AdvReac Type Severity Reaction Status Date / Time latex Allergy Intermediate SEVERE Verified 12/29/21 14:22 ITCHING cephalexin Allergy Mild RASH Verified 12/29/21 14:22 Home Medications Medication Instructions Recorded Confirmed Type cholecalciferol (vitamin D3) 125 125 mcg PO DAILY 10/02/19 04/29/22 History mcg (5,000 unit) tablet aspirin 81 mg tablet,delayed 81 mg PO 3XWK 04/03/20 04/29/22 History release nystatin 100,000 unit/gram topical 1 applic topical DAILY PRN fungal 12/23/20 04/29/22 History cream fluocinonide 0.05 % topical cream 1 applic topical DAILY 01/19/21 04/29/22 History triamcinolone acetonide 0.1 % 1 applic topical DIRECTED PRN 01/19/21 04/29/22 History topical cream Skin Irritation albuterol sulfate 90 mcg/actuation 2 puff inhalation Q4H PRN 04/10/21 04/29/22 History aerosol inhaler Shortness Of Breath #1 g vitamins A,C,X-bjcf-hpcsll 14,320 1 cap PO BID 05/12/21 04/29/22 History unit-226 mg-200 unit capsule (PreserVision AREDS) calcium carbonate 600 mg calcium 1,200 mg PO DAILY 06/16/21 04/29/22 History (1,500 mg) tablet (Calcium) lactobacillus combination no.4 3 6,000 mmu cells PO DAILY 06/16/21 04/29/22 History billion cell capsule (Probiotic) magnesium 250 mg tablet 250 mg PO DAILY #30 tabs 10/09/21 04/29/22 Rx carvedilol 3.125 mg tablet 3.125 mg PO BID 90 days #180 tabs 11/06/21 04/29/22 Rx lisinopril 20 mg tablet 20 mg PO DAILY #90 tabs 11/06/21 04/29/22 Rx fluticasone propionate 50 1 - 2 spray intranasal DAILY #18.2 02/05/22 04/29/22 Rx mcg/actuation nasal mL spray,suspension umeclidinium 62.5 mcg-vilanterol 1 ea inhalation DAILY #60 ea 03/22/22 04/29/22 Rx 25 mcg/actuation powdr for inhalation (Anoro Ellipta) gabapentin 100 mg capsule See Rx Instructions .Route 03/30/22 04/29/22 Rx .COMPLEX #60 caps diclofenac sodium 1 % topical gel See Rx Instructions .Route .COMPLEX 04/29/22 04/29/22 History (Voltaren Arthritis Pain) Patient History Medical History ARF (acute renal failure) Arthritis, multiple joint involvement Balance problems Bradycardia COPD (chronic obstructive pulmonary disease) COVID-19 09/2021 - required hospitalization HFrEF (heart failure with reduced ejection fraction) EF 45-50% - 2020 echo HTN (hypertension) Hypercholesterolemia Impaired fasting glucose Nocturia Osteoporosis Pasteurella infection with bacteremia, 2nd to cat scratch and RUE cellulitis - 06/16 Right arm cellulitis Secondary hypothyroidism Syncope and collapse (05/15/14) UTI (urinary tract infection) recurrent Surgical History H/O: hysterectomy History of breast biopsy History of bunionectomy History of carpal tunnel surgery History of inguinal hernia repair History of myringotomy History of rotator cuff surgery Jul 2011--Dr. Whitten Hx of adenoidectomy Hx of tonsillectomy S/P appendectomy S/P cholecystectomy Family History Mother , in her 80s of multiple CVAs Alzheimer disease Stroke Father , age 78 of COPD complications Emphysema, unspecified COPD (chronic obstructive pulmonary disease) Grandfather (Maternal) Colorectal cancer Uncle Prostate cancer Denies family history of Ovarian cancer Coronary heart disease Heart disease Myocardial infarction Breast cancer Social History Smoking Status: Former smoker Tobacco Type: Cigarettes Age Started Using Tobacco: 23; Age Quit Using Tobacco: 61; Cigarettes Per Day: 1 ppd; Number of Years Since Quit: 30; Second Hand Exposure: No; Hx Alcohol Use: Yes Alcohol type: wine Alcohol Intake Frequency: Monthly or Less Alcohol Intake Frequency Comment: social Hx Substance Use: No Preferred Language: Korean Communication Ability: Effective Visual Impairment: Limited Hearing Ability: Use of Hearing Aid [employer] Ax Developer Required: No Beliefs That Will Affect Care: None marital status: / Current Living Situation: Alone and Personal Care Facility Current Living Situation Comment: Independent living facility (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 How many Children do You have: 2 Other Information That Helps Us Care for You: No Feels Safe at Home: Yes Safety Concerns: Feels Safe At This Time Childhood Exposure to Second-Hand Smoke: Yes caffeine: Yes Dental Care, Regularly: No Physical Activity Frequency: Does not Exercise Seatbelt Use: always Sunscreen Use: No Assistive Devices: Cane, Denture - Upper, Denture - Lower, Glasses and Hearing Aid - Bilateral Review of Systems Review of Systems: All systems reviewed & are unremarkable except as noted in HPI & below Musculoskeletal: Chest wall pain from a bruise Neurologic: + loss of sensation (Hearing) Physical Exam Constitutional: well developed and well nourished Eyes: PERRL ENMT: Ears: + hearing impairment Neck: trachea midline Respiratory: normal respiratory effort and + respiratory distress Auscultation: lungs clear to auscultation bilaterally Cardiovascular: Rate/Rhythm: regular rate and regular rhythm Vessels: femoral pulses present and radial pulses present (Decreased on right) Extremities: normal capillary refill Gastrointestinal (Abdomen): Inspection/Auscultation: abdomen normal to inspection Percussion/Palpation: abdomen soft; abdomen nontender Musculoskeletal: no cyanosis or clubbing, extremities motor strength 5/5 Neurologic: CN's II-XI intact bilaterally and moves all extremities She is left-handed but uses her right hand a fair amount. Psychiatric: Orientation: alert and oriented x 3 Results & Data ([facility]) Vital Signs (Past 12 Hours) Vital Signs Temp Pulse Pulse Resp BP Pulse Ox Pulse Ox 04/30/22 07:36 36.5 C 63 17 131/62 89 L 04/30/22 07:37 63 04/30/22 07:29 90 04/30/22 03:00 36.5 C 63 20 106/58 L 90 04/29/22 23:00 36.8 C 67 18 103/64 90 O2 Del Method O2 Del Method 04/30/22 07:36 Room Air 04/30/22 07:37 04/30/22 07:29 Room Air 04/30/22 03:00 04/29/22 23:00
[2022-04-30] MEDS ORDERED: CLOPIDOGREL BISULFATE 75 MG TAB PO ONE (10:15)
[2022-04-30] MEDS: GABAPENTIN 100 MG CAP PO SCH (20:26)
--- NOTE | 2022-04-30 20:35 | Hospitalist Progress Note ---
Date of Service April 30, 2022 Assessment & Plan (1) Acute severe vertigo: Plan: Likely an episode of VBI (vertebrobasilar insufficiency). Can't fully r/o peripheral vertigo/inner ear issue but less likely. Either way symptoms are much better and no recurrent events. Past events of "syncope" may have been from VBI as well. Appreciate neurology & vascular surgery consultations. Cont meclizine 12.5mg BID for another day or two then use prn. For her severe PAD and cerebrovascular disease neurology advises use of plavix in thelma of aspirin. Await PT eval. Did well with OT eval. (2) Elevated troponin: Plan: Mild elevation. Likely myocardial demand ischemia in setting of #1. No prior h/o CAD. No ischemic symptoms at the time of her event in #1. HOWEVER - has new LBBB, and echo with depressed EF/wall motion issues. Further, her history - episodes of chest "constriction" with activity - are very worrisome for CAD. Add imdur 30mg daily. Cont coreg. Add back LEBRON if BP will allow. Cont tele. Will likely consult cardiology tomorrow. (3) LBBB (left bundle branch block): Plan: New since her prior EKG in 09/2021. Symptoms over the last 12+ months, echo findings, and now the LBBB (along with known risk equivalent of severe PAD) are all concerning for underlying CAD. Plavix. BB. Statin. Add imdur. (4) HFrEF (heart failure with reduced ejection fraction): Plan: Previous echo in 2020 showed EF of 45-50%. Repeat echo now 40-45%. See above. Compensated today. (5) Hypomagnesemia: Plan: Level checked and was wnl. (6) CKD (chronic kidney disease), stage III: Plan: stage 3b baseline CrCL is about 30 baseline creatinine is about 1.1 / 1.2 Cr today 1.3 and stable BMP in am (7) Hypercholesterolemia: Plan: LDL = 67 HDL = 50 [id number], given the ICA stenosis, subclavian stenosis, etc -- start statin (8) HTN (hypertension): Plan: hold LEBRON. continue coreg. add imdur as above. (9) Impaired fasting glucose: Plan: HbA1C 6.3% in 09/2021. repeat level today 5.7%. (10) COPD (chronic obstructive pulmonary disease): Plan: no exacerbation at this time. continue home inhalers. o2 sats stable. (11) Acute chest wall pain: Plan: right. patient "bumped" into a table at home about 1 week ago. has had pain over the right chest wall since then. checked rib films on right - OLD fracture seen, but nothing acute. lidoderm patches in meantime. probably contusion. (12) Subclavian artery stenosis, right: Plan: severe, but equal pulses on exam, and no arm symptoms at this time vascular surgery consult appreciated - no Rx plavix, statin, etc (13) Vertebrobasilar insufficiency: Plan: see above (14) Vertebral artery stenosis: Plan: right see above (15) Carotid stenosis, right: Plan: 70% see above Plan updated pt's son, Jonnathan, once again today by phone Admission and Anticipated Discharge Date Admission Date: April 29, 2022 Subjective tele stable overnight she overall feels ok - just tired/sleepy no further episodes of ataxia/visual change/vertigo able to eat/drink no nausea incidentally she mentions the following - * at least 1 year, perhaps longer, of a "constriction" pain in her lower chest - she initially points to the central low chest, but states it is usually under the left breast * gets this pain with activity; rest improves it * she does have dyspnea on exertion with long walks, running her sweeper at home, etc; again rest makes the dyspnea better she has never been dx with CAD or [place] Review of Systems Review of Systems: gen - no fever, appetite ok cv - no orthopnea pulm - no cough GI - no nausea/ emesis neuro - no headache, no motor symptoms, no vertigo today, balance is better Physical Exam Physical Exam: gen - lying flat in bed comfortably, NAD neck - no JVD heart - RRR, s1 s2 lungs - CTA b/l abd - soft NT ND BS+ ext - no edema, pulses 2+ b/l neuro - speech clear, no facial droop; strength 5/5 x 4 exts vascular - radial pulse b/l 2+ Results & Data Results & Data ([facility]) Vital Signs (Past 12 Hours) Vital Signs Temp Pulse Resp BP Pulse Ox O2 Del Method 04/30/22 19:00 36.6 C 74 16 161/77 H 95 Room Air 04/30/22 15:52 36.5 C 62 16 165/72 H 94 Room Air 04/30/22 11:31 36.5 C 62 17 161/69 H 95 Room Air Laboratory Results Cr 1.3 Diagnostic Findings MRI brain neg for acute CVA echo - LV function slightly worse than prior echo in 2020; EF now 40-45% global hypokinesis with ?slightly worse wall motion distal anterior wall PG Care Time/CCT Total # of Minutes Spent Total Time Spent with Patient: Total time spent is greater than 50% in coordination of care (as documented) at patient's floor/unit and/or counseling patient: Coding Level of Care Code 16684 Subseq Hosp Care Lvl 3 Diagnoses Acute severe vertigo R42 Elevated troponin R77.8 LBBB (left bundle branch block) I44.7 HFrEF (heart failure with reduced ejection fraction) I50.20 Hypomagnesemia E83.42 CKD (chronic kidney disease), stage III N18.30 Hypercholesterolemia E78.00 HTN (hypertension) I10 Impaired fasting glucose R73.01 COPD (chronic obstructive pulmonary disease) J44.9 Acute chest wall pain R07.89 Subclavian artery stenosis, right I77.1 Vertebrobasilar insufficiency G45.0 Vertebral artery stenosis I65.09 Carotid stenosis, right I65.21
[2022-04-30] MEDS ORDERED: POLYETHYLENE (MIRALAX) 17 GM PACK PO PRN (22:02)
[2022-05-01 07:58] LABS: BUN Creatinine Ratio 29.5 (10-20); Calcium 8.4 mg/dl (8.5-10.1); Creatinine Clr Calc Pharmacy 27.1 ml/min; Est GFR (African American) 39.4 ml/min; Potassium 4.9 mmol/L (3.5-5.1)
[2022-05-01] MEDS: UMECLIDINIUM/VILANTEROL 62.5/25MCG 7 PUFFS/INHALER INH SCH (08:21)
[2022-05-01] MEDS: FLUTICASONE PROPIONATE NA SPR 16 GM BTL SCH (08:21)
[2022-05-01] MEDS: LIDOCAINE 5% 1 PATCH TD SCH (08:21)
[2022-05-01] MEDS: MAGNESIUM OXIDE 400 MG TAB PO SCH (08:22)
[2022-05-01] MEDS: CEROVITE ADV FORMULA TAB PO SCH ×2 (08:22→20:22)
[2022-05-01] MEDS: CALCIUM 600MG + VIT D 400 IU TAB PO SCH (08:22)
[2022-05-01] MEDS: MECLIZINE 12.5 MG TAB PO SCH (08:22)
[2022-05-01] MEDS: carvediloL 3.125 MG TAB PO SCH ×2 (08:22→20:22)
[2022-05-01] MEDS: CHOLECALCIFEROL 5,000 UNITS 125 MCG TAB PO SCH (08:22)
[2022-05-01] MEDS ORDERED: CLOPIDOGREL BISULFATE 75 MG TAB PO SCH (09:00)
[2022-05-01] MEDS ORDERED: ISOSORBIDE MONO EXTENDED REL 30 MG TABCR PO SCH (09:00)
[2022-05-01] MEDS: ATORVASTATIN 20 MG TAB PO SCH (09:47)
--- NOTE | 2022-05-01 12:03 | Cardiology Consultation ---
Date of Consultation May 01, 2022 Assessment & Plan (1) Episodic lightheadedness: Elderly woman with known cerebrovascular disease who has had recurrent episodes of near syncope/disequilibrium over an extended period of time, but which now seem to be occurring more frequently. Etiology of these episodes remains elusive, given their sporadic nature and the patient's personal description the she is not having true vertigo, it is far from certain that these are vertebrobasilar episodes. Suggestions to increase her antiplatelet agents are based on the assumption she is at risk for acute cerebrovascular thrombotic event. Would agree with intensifying her antiplatelet regimen, but since she had difficulties with ecchymoses from daily aspirin suspect that she would have even greater tendency to easy bleeding on clopidogrel. Perhaps a short period of clopidogrel followed by changing to as pirin 81 mg daily would be a reasonable compromise between potential thrombotic risk and tendency to bruising/ecchymoses. It is also uncertain what role her variable hemodynamics might play in her symptoms, at least some episodes occur while seated at rest. Would hope to balance her management by treating her hypertension while minimizing its variability. She had been on lisinopril as an outpatient, would favor restarting lisinopril 20 mg daily and discontinuing her low-dose carvedilol (which causes significantly more blood pressure variability than lisinopril). Finally, rhythm disturbances such as transient heart block would be a significant consideration. Since she already had an uneventful ambulatory radiation monitor last year, would consider placement of a loop recorder to more definitively include/exclude a rhythm component to her episodes. This can be arranged as an outpatient. Telemetry during this stay has been benign, so the yield of repeating an ambulatory radiation monitor is probably low. (2) Chest pain at rest: As noted, she has periodic epigastric/lower thoracic bandlike discomfort which occurs at rest and is not related to exertion. This could potentially be due to myocardial ischemia (e.g., if her BP spikes from time to time) or it could be esophageal spasm. Almost certainly, given her extensive vascular disease, she has underlying coronary disease, but is not having routine exertional type symptoms to suggest the type of angina that would benefit from revascularizat ion. Would recommend trial of PRN sublingual nitroglycerin whenever she notes that this discomfort, with the caveat that she should sit or lie on a couch with her legs elevated after she takes the nitroglycerin to avoid any hypotension related symptoms. This could be helpful from both a diagnostic and therapeutic standpoint. Would not necessarily discharge her automatically on long-acting nitrates, but could initiate these if the PRN nitroglycerin proves effective. I did discuss with her various options, she felt that conservative/medical management of any underlying coronary disease was appropriate at this time. (3) Elevated troponin: Suspect mild supply/demand ischemia due to her significant discomfort during symptoms and elevated BP. No evidence of acute coronary syndrome (no dynamic ECG changes or peak and decay troponin curve). (4) Abnormal ECG: As noted, this is more consistent with LVH with QRS widening than true bundle branch block. It appears to have been a gradual progression of QRS widening (QRS morphology is unchanged) rather than an abrupt change in conduction. No specific treatment. (5) Carotid stenosis, right: As above, intensifying antiplatelet regimen planned. (6) CKD (chronic kidney disease), stage III: Increased risk for any dye related interventions. She would benefit from restarting lisinopril since her kidney disease is not extremely advanced. (7) HTN (hypertension): As noted, would recommend restarting lisinopril and discontinuing carvedilol to reduce hemodynamic lability. Plan I would be glad to see her in the office in 1 to 4 weeks to reevaluate her symptoms and potentially arrange for loop recorder. Thank you for this interesting consultation on a most pleasant individual. History of Present Illness Reason for Consultation: suspected CAD; new LBBB; depressed LV function Requesting Physician: Lyle Singleton Attending Physician: Lyle Singleton History of Present Illness 86-year-old woman with history of significant vascular disease (carotid, vertebral, subclavian stenoses) but no known coronary artery disease who was admitted 04/29/2022 after an episode of acute onset disequilibrium/near syncope/n ausea with some epigastric region "bandlike" discomfort, mildly elevated troponin, and ECG showing apparent new left bundle branch block. Evaluation has been inconclusive, with no further symptoms in hospital and with benign telemetry (sinus rhythm in the 50 to 70 bpm range). Troponin showed a steady decline (99, 88, 80) and echocardiogram showed ejection fraction of 40 to 45% with mild global hypokinesis slightly worse in the distal anterior wall (mild decline in LV systolic function from April 2021 echo). Patient has been on long-term aspirin 81 mg 3 times a week, she was reduced to this dose due to frequent ecchymoses in the past. Dr. Dixon from neurology recommended changing to clopidogrel. Dr. Live from vascular surgery recommended conservative management (no surgery) with daily aspirin. She does have a longstanding history of "episodes" which she actually takes pains to say are not vertigo but are extreme unsteadiness on her feet, sometimes apparently with loss of consciousness transiently. Such episodes date back about 8 years, work-up has been unrevealing, including an event monitor on for 1 month March 2021 (sinus rhythm at unremarkable heart rates with occasional PACs and PVCs). When I spoke with her son, he noted that these episodes can occur while she is sitting and are not necessarily related to position change. She also has separate episodes of "bandlike" epigastric/lower sternal discomfort radiating laterally, these can occur at rest or with activity and last for 15 to 20 minutes before resolving. They're fairly infrequent, but she did note an episode of this discomfort at the time of her admission several days ago. She apparently had 2 other episodes of acute disequilibrium in the past week, these were not accompanied by any chest or abdominal discomfort. At the time of my evaluation today, she was quite comfortable and had no chest or epigastric discomfort and noted no sense of disequilibrium or vertigo when sitting quietly. Allergies Allergy/AdvReac Type Severity Reaction Status Date / Time latex Allergy Intermediate SEVERE Verified 12/29/21 14:22 ITCHING cephalexin Allergy Mild RASH Verified 12/29/21 14:22 Home Medications Medication Instructions Recorded Confirmed Type cholecalciferol (vitamin D3) 125 125 mcg PO DAILY 10/02/19 04/29/22 History mcg (5,000 unit) tablet aspirin 81 mg tablet,delayed 81 mg PO 3XWK 04/03/20 04/29/22 History release nystatin 100,000 unit/gram topical 1 applic topical DAILY PRN fungal 12/23/20 04/29/22 History cream fluocinonide 0.05 % topical cream 1 applic topical DAILY 01/19/21 04/29/22 History triamcinolone acetonide 0.1 % 1 applic topical DIRECTED PRN 01/19/21 04/29/22 History topical cream Skin Irritation albuterol sulfate 90 mcg/actuation 2 puff inhalation Q4H PRN 04/10/21 04/29/22 History aerosol inhaler Shortness Of Breath #1 g vitamins A,C,[id number]-upat-qivcdv 14,320 1 cap PO BID 05/12/21 04/29/22 History unit-226 mg-200 unit capsule (PreserVision AREDS) calcium carbonate 600 mg calcium 1,200 mg PO DAILY 06/16/21 04/29/22 History (1,500 mg) tablet (Calcium) lactobacillus combination no.4 3 6,000 mmu cells PO DAILY 06/16/21 04/29/22 History billion cell capsule (Probiotic) magnesium 250 mg tablet 250 mg PO DAILY #30 tabs 10/09/21 04/29/22 Rx carvedilol 3.125 mg tablet 3.125 mg PO BID 90 days #180 tabs 11/06/21 04/29/22 Rx lisinopril 20 mg tablet 20 mg PO DAILY #90 tabs 11/06/21 04/29/22 Rx fluticasone propionate 50 1 - 2 spray intranasal DAILY #18.2 02/05/22 04/29/22 Rx mcg/actuation nasal mL spray,suspension umeclidinium 62.5 mcg-vilanterol 1 ea inhalation DAILY #60 ea 03/22/22 04/29/22 Rx 25 mcg/actuation powdr for inhalation (Anoro Ellipta) gabapentin 100 mg capsule See Rx Instructions .Route 03/30/22 04/29/22 Rx .COMPLEX #60 caps diclofenac sodium 1 % topical gel See Rx Instructions .Route .COMPLEX 04/29/22 04/29/22 History (Voltaren Arthritis Pain) Patient History Medical History ARF (acute renal failure) Arthritis, multiple joint involvement Balance problems Bradycardia COPD (chronic obstructive pulmonary disease) COVID-19 09/2021 - required hospitalization HFrEF (heart failure with reduced ejection fraction) EF 45-50% - 2020 echo HTN (hypertension) Hypercholesterolemia Impaired fasting glucose Nocturia Osteoporosis Pasteurella infection with bacteremia, 2nd to cat scratch and RUE cellulitis - 06/16 Right arm cellulitis Secondary hypothyroidism Syncope and collapse (05/15/14) UTI (urinary tract infection) recurrent Surgical History H/O: hysterectomy History of breast biopsy History of bunionectomy History of carpal tunnel surgery History of inguinal hernia repair History of myringotomy History of rotator cuff surgery Jul 2011--Dr. Whitten Hx of adenoidectomy Hx of tonsillectomy S/P appendectomy S/P cholecystectomy Family History Mother , in her 80s of multiple CVAs Alzheimer disease Stroke Father , age 78 of COPD complications Emphysema, unspecified COPD (chronic obstructive pulmonary disease) Grandfather (Maternal) Colorectal cancer Uncle Prostate cancer Denies family history of Ovarian cancer Coronary heart disease Heart disease Myocardial infarction Breast cancer Social History Smoking Status: Former smoker Tobacco Type: Cigarettes Age Started Using Tobacco: 23; Age Quit Using Tobacco: 61; Cigarettes Per Day: 1 ppd; Number of Years Since Quit: 30; Second Hand Exposure: No; Hx Alcohol Use: Yes Alcohol type: wine Alcohol Intake Frequency: Monthly or Less Alcohol Intake Frequency Comment: social Hx Substance Use: No Preferred Language: American Communication Ability: Effective Visual Impairment: Limited Hearing Ability: Use of Hearing Aid Children'S Service Worker Required: No Beliefs That Will Affect Care: None marital status: / Current Living Situation: Alone and Personal Care Facility Current Living Situation Comment: Independent living facility ([facility]) current occupational 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 With rare exceptions, systolic blood pressure has been elevated in hospital. BP range 974479/60-80 mmHg. Heart rate range 57-74 bpm Skin: no obvious ecchymoses or generalized lesions. HEENT: unremarkable. Neck: Jugular venous pulse of appears normal, no carotid bruits. Lungs: clear. Cardiac: regular rhythm, normal aortic closure sound, 2/6 systolic ejection murmur right upper sternal border which is nonradiating, no diastolic murmur. Abdomen: benign. Extremities: no edema, pulses intact. Neurologic: normal affect, grossly nonfocal. Results & Data ([facility]) Vital Signs (Past 12 Hours) Vital Signs Temp Pulse Pulse Resp BP Pulse Ox Pulse Ox 05/01/22 08:00 57 L 05/01/22 07:00 95 05/01/22 07:34 98.1 F 61 16 170/61 H 94 05/01/22 02:27 97.9 F 65 18 166/78 H 94 O2 Del Method O2 Del Method 05/01/22 08:00 05/01/22 07:00 Room Air 05/01/22 07:34 Room Air 05/01/22 02:27 Room Air Laboratory Results Hemoglobin 10.7 with normal white count and platelet count. Normal electrolytes, BUN 41, creatinine 1.39. Declining troponin values (99, 88, 80) Diagnostic Findings ECG shows sinus rhythm with PACs, to my eye the QRS complex is more consistent with left ventricular hypertrophy with QRS widening and repolarization abnorma lities than left bundle branch block (it lacks the wide/bizarre R wave in V5 and V6 and is similar in morphology to prior ECGs with the exception of the QRS duration now being slightly longer). Echocardiogram as noted in HPI. Imaging studies show 70% right internal carotid stenosis, occluded V1 vertebral, subclavian artery stenosis. PG Care Time/CCT Total # of Minutes Spent Total Time Spent with Patient: Total time spent is greater than 50% in coordination of care (as documented) at patient's floor/unit and/or counseling patient: Coding Level of Care Code 36103 Inpt Consult Level 5 Diagnoses Episodic lightheadedness R42 Chest pain at rest R07.9 Elevated troponin R77.8 Abnormal ECG R94.31 Carotid stenosis, right I65.21 CKD (chronic kidney disease), stage III N18.30 HTN (hypertension) I10 Time Spent (min) 90
[2022-05-01] MEDS ORDERED: MECLIZINE 12.5 MG TAB PO PRN (14:03)
--- NOTE | 2022-05-01 20:02 | Hospitalist Progress Note ---
Date of Service May 01, 2022 Assessment & Plan (1) Acute severe vertigo: Plan: Likely an episode of VBI (vertebrobasilar insufficiency). Can't fully r/o peripheral vertigo/inner ear issue but less likely. Either way symptoms are much better and no recurrent events. Past events of "syncope" may have been from VBI as well. Appreciate neurology & vascular surgery consultations. Fatigue may be from scheduled meclizine 12.5mg BID -- thus, stop and make PRN on ly. For her severe PAD and cerebrovascular disease prevention - reasonable to increase asa 81mg to EVERY DAY usage at her request. Thus, d/c plavix. Cleared by PT/OT for home at [facility]. (2) Elevated troponin: Plan: Mild elevation. Likely myocardial demand ischemia in setting of #1. No prior h/o CAD. No ischemic symptoms at the time of her event in #1. (3) LBBB (left bundle branch block): Plan: New since her prior EKG in 09/2021. Patient reports episodes of chest pain ("constriction") - this could be angina. Dr Rhodes saw patient in consult today - advised prn nitro usage for such to see if the pain does indeed resolve. He will follow her in cardiology clinic. Defer on invasive testing at this time. Asa. lipitor 20mg daily. coreg low-dose. Dr Rhodes recommends stopping daily imdur for now. (4) HFrEF (heart failure with reduced ejection fraction): Plan: Previous echo in 2020 showed EF of 45-50%. Repeat echo now 40-45%. See above. Compensated by exam today. (5) Hypomagnesemia: Plan: Level checked and was wnl. (6) CKD (chronic kidney disease), stage III: Plan: stage 3b borderline stage 4 baseline CrCL is about 30 baseline creatinine is about 1.1 / 1.2 Cr today 1.3 and stable BMP in am (7) Hypercholesterolemia: Plan: LDL = 67 HDL = 50 [id number], given the ICA stenosis, subclavian stenosis, etc -- start statin - lipitor 20mg daily (8) HTN (hypertension): Plan: resume LEBRON. continue coreg. stop imdur. (9) Impaired fasting glucose: Plan: HbA1C 6.3% in 09/2021. repeat level this admission 5.7%. (10) COPD (chronic obstructive pulmonary disease): Plan: no exacerbation at this time. continue home inhalers. o2 sats stable. (11) Acute chest wall pain: Plan: right. patient "bumped" into a table at home about 1 week ago. has had pain over the right chest wall since then. checked rib films on right - OLD fracture seen, but nothing acute. lidoderm patches in meantime. probably contusion. (12) Subclavian artery stenosis, right: Plan: severe, but equal pulses on exam, and no arm symptoms at this time vascular surgery consult appreciated - no Rx plavix, statin, etc (13) Vertebrobasilar insufficiency: Plan: see above (14) Vertebral artery stenosis: Plan: right see above (15) Carotid stenosis, right: Plan: 70% see above (16) Syncope and collapse: Plan: multiple episodes over the last few years without specific cause vertebrobasilar insufficiency? arrhythmia? Dr Rhodes saw in consult today - could consider a loop recorder in future he will f/u patient in clinic to follow this cont tele while hospitalized Plan updated pt's son, Jonnathan, once again today by phone this evening hopefully back to [facility] tomorrow Admission and Anticipated Discharge Date Admission Date: April 29, 2022 Subjective patient c/o fatigue and feeling sleepy today slept "ok" last night no further episodes of ataxia/dizziness/vertigo/visual disturbance no chest pain no dyspnea no orthopnea eating ok worked with PT today - did well, cleared for return to [facility] did not have any imbalance with walking tele overnight wnl patient states she wants to take aspirin every day rather than switching to plavix was only taking asa 3 days/week before this admission (due to h/o bruising with asa) Review of Systems Review of Systems: gen - no fevers or chills cv - no chest pain pulm - no cough GI - no nausea or emesis Physical Exam Physical Exam: gen - NAD, looks good today neck - no JVD heart - RRR, s1 s2 lungs - CTA b/l, slight crackle R base only abd - soft NT ND BS+ ext - no edema, pulses 2+ b/l neuro - speech clear, no facial droop; strength 5/5 x 4 exts psych - a/o x 3 Results & Data Results & Data ([facility]) Vital Signs (Past 12 Hours) Vital Signs Temp Pulse Pulse Resp BP Pulse Ox O2 Del Method 05/01/22 19:49 36.7 C 62 18 117/62 93 05/01/22 15:46 57 L 05/01/22 15:26 36.4 C L 57 L 16 166/57 H 94 Room Air 05/01/22 12:13 36.9 C 73 18 142/72 H 90 Room Air Laboratory Results Laboratory Results - last 24 hr 05/01/22 06:33 Sodium 138 Potassium 4.9 Chloride 106 Carbon Dioxide 27 Anion Gap 5 BUN 41 H Creatinine 1.39 H Est Cr Clr Drug Dosing 27.1 Est GFR ( Amer) 39.4 Est GFR (Non-Af Amer) 34.0 BUN/Creatinine Ratio 29.5 H Glucose 77 Calcium 8.4 L PG Care Time/CCT Total # of Minutes Spent Total Time Spent with Patient: Total time spent is greater than 50% in coordination of care (as documented) at patient's floor/unit and/or counseling patient: Coding Level of Care Code 28374 Subseq Hosp Care Lvl 3 Diagnoses Acute severe vertigo R42 Elevated troponin R77.8 LBBB (left bundle branch block) I44.7 HFrEF (heart failure with reduced ejection fraction) I50.20 Hypomagnesemia E83.42 CKD (chronic kidney disease), stage III N18.30 Hypercholesterolemia E78.00 HTN (hypertension) I10 Impaired fasting glucose R73.01 COPD (chronic obstructive pulmonary disease) J44.9 Acute chest wall pain R07.89 Subclavian artery stenosis, right I77.1 Vertebrobasilar insufficiency G45.0 Vertebral artery stenosis I65.09 Carotid stenosis, right I65.21 Syncope and collapse R55
[2022-05-01] MEDS: GABAPENTIN 100 MG CAP PO SCH (20:22)
[2022-05-02 07:47] LABS: BUN Creatinine Ratio 32.8 (10-20); Calcium 8.8 mg/dl (8.5-10.1); Creatinine Clr Calc Pharmacy 30.1 ml/min; Est GFR (African American) 44.8 ml/min; Est GFR (Non-African American) 38.6 ml/min; Potassium 4.3 mmol/L (3.5-5.1)
[2022-05-02] MEDS: UMECLIDINIUM/VILANTEROL 62.5/25MCG 7 PUFFS/INHALER INH SCH (08:18)
[2022-05-02] MEDS: FLUTICASONE PROPIONATE NA SPR 16 GM BTL SCH (08:18)
[2022-05-02] MEDS: CALCIUM 600MG + VIT D 400 IU TAB PO SCH (08:19)
[2022-05-02] MEDS: CEROVITE ADV FORMULA TAB PO SCH (08:19)
[2022-05-02] MEDS: carvediloL 3.125 MG TAB PO SCH (08:19)
[2022-05-02] MEDS: CHOLECALCIFEROL 5,000 UNITS 125 MCG TAB PO SCH (08:19)
[2022-05-02] MEDS: LIDOCAINE 5% 1 PATCH TD SCH (08:20)
[2022-05-02] MEDS: ATORVASTATIN 20 MG TAB PO SCH (08:20)
[2022-05-02] MEDS: MAGNESIUM OXIDE 400 MG TAB PO SCH (09:00)
[2022-05-02] MEDS ORDERED: lisinopril 10 MG TAB PO SCH (09:00)
[2022-05-02] MEDS ORDERED: ASPIRIN 81 MG ECTAB PO SCH (09:00)
--- NOTE | 2022-05-02 10:12 | Cardiology Progress Note ---
Date of Service May 02, 2022 Assessment & Plan (1) Episodic lightheadedness: Plan: Aspirin increased from home dosing of 3 times weekly to 81 mg daily for cerebrovascular disease. Will arrange for loop recorder as outpatient to further evaluate possible syncopal episodes. Lisinopril restarted, can reevaluate role of carvedilol as outpatient. (2) Chest pain at rest: Plan: Trial of PRN sublingual nitroglycerin as outpatient for any chest pain recurrence. If this demonstrates benefit, would likely start long-acting nitrates at that time. Conservative management of presumed underlying CAD (given her vascular disease). (3) Elevated troponin: Plan: Suspect mild supply/demand ischemia due to her significant discomfort during symptoms and elevated BP. No evidence of acute coronary syndrome (no dynamic ECG changes or peak and decay troponin curve). (4) Abnormal ECG: Plan: More likely LVH with QRS widening than true bundle branch block. It appears to have been a gradual progression of QRS widening (QRS morphology is unchanged) rather than an abrupt change in conduction. No specific treatment. (5) Carotid stenosis, right: (6) CKD (chronic kidney disease), stage III: (7) HTN (hypertension): Plan Please arrange for cardiology follow-up in 1 to 4 weeks in my office. Thank you. Admission and Anticipated Discharge Date Admission Date: April 29, 2022 Subjective She felt fine today, was able to walk the hallways at a brisk pace without any symptoms. No chest pain, vertigo, palpitations, or other symptoms. Telemetry shows sinus rhythm with occasional PVCs, appropriate heart rate. Physical Exam Physical Exam: Elderly white female appears comfortable. BP 145/67 mmHg. Pulse 88 bpm and regular. Skin: no obvious ecchymoses or generalized lesions. HEENT: unremarkable. Neck: Jugular venous pulse of appears normal, no carotid bruits. Lungs: clear. Cardiac: regular rhythm, normal aortic closure sound, 2/6 systolic ejection murmur right upper sternal border which is nonradiating, no diastolic murmur. Abdomen: benign. Extremities: no edema, pulses intact. Neurologic: normal affect, grossly nonfocal. Results & Data ([facility]) Laboratory Results Normal electrolytes, BUN 41, creatinine 1.25. PG Care Time/CCT Total # of Minutes Spent Total Time Spent with Patient: Total time spent is greater than 50% in coordination of care (as documented) at patient's floor/unit and/or counseling patient: Coding Level of Care Code 34295 Subseq Hosp Care Lvl 3 Diagnoses Episodic lightheadedness R42 Chest pain at rest R07.9 Elevated troponin R77.8 Abnormal ECG R94.31 Carotid stenosis, right I65.21 CKD (chronic kidney disease), stage III N18.30 HTN (hypertension) I10
[2022-05-02] MEDS ORDERED: STROKE PATIENT DISCHARGE STA (11:50)
--- NOTE | 2022-05-02 12:03 | Discharge Summary ---
Date of Service date of admission - April 29, 2022 date of discharge - May 02, 2022 Admission HPI Per Admitting Provider 86yo female with h/o CKD stage 3, chronic systolic CHF EF 45-50%, HTN, hyperlipidemia, prior episodes of syncope, and COPD who presents from her home at [facility] via EMS due to an acute episode of severe ataxia, weakness, dizziness/vertigo, and severe nausea. Patient states she felt well yesterday and was in her usual state of health. This am about 0500 she awoke to go to the bathroom. Immediately upon sitting up in bed she had severe dizziness. It was not a lightheadedness but a form of rotation. She attempted to get out of bed but this was extremely difficult. She felt very unsteady and had to hold on to things to ambulate to the bathroom. She finally did arrive in her bathroom and sat down on the toilet. The dizziness was still severe, and she then developed severe nausea. She did not vomit. Her vision was "off" or "distorted" but she did not have obvious visual field cuts or loss of vision. She never had double vision, sensory loss, or focal motor weakness. She voided and had a BM. The nausea continued so she pulled the emergency cord in her bathroom. Nursing arrived, and EMS was then called. She was brought to [facility]. The dizziness stayed with her until some time after her arrival here. She denies any prior h/o stroke, TIA, or acute vertigo. She reports seeing the ENT office yesterday for a hearing evaluation and was told everything was "ok" although she does have chronic hearing loss. Denies tinnitus. Denies any recent URI or illness. In addition, she reports 2 other episodes in the last week - 1. she was traveling on the van to a doctor's appointment about 1 week ago and when attempting to get off the van she had an episode of emesis. She thinks she may have had dizziness then but can't confirm such. 2. about 5-6 days ago while in her apartment she lost her footing and fell into a round table, striking the right chest. She has had rib pain since that time. Did not seek medical attention for either episode. Denies LOC or syncope with either event. Records also indicate past episodes of syncope without obvious etiology. Principal Diagnosis 1. acute vertigo - possibly due to vertebrobasilar insufficiency 2. severe PAD - right subclavian artery stenosis, right ICA stenosis, right vertebral artery stenosis 3. episodes of chest pain - possible angina 4. prior h/o syncope Discharge Exam gen - NAD eyes - no nystagmus neck - no JVD heart - RRR, s1 s2 lungs - CTA b/l, slight crackle R base only abd - soft NT ND BS+ ext - no edema, pulses 2+ b/l neuro - speech clear, no facial droop; strength 5/5 x 4 exts; finger/nose/finger maneuver wnl psych - a/o x 3 vascular - 2+ radial pulses b/l Discharge Data Allergies Allergy/AdvReac Type Severity Reaction Status Date / Time latex Allergy Intermediate SEVERE Verified 05/05/22 14:16 ITCHING cephalexin Allergy Mild RASH Verified 05/05/22 14:16 Consultations [facility] Neurology [facility] Vascular Surgery [facility] Cardiology PT, OT Procedures Performed Echocardiogram: * EF 40-45% * mild global hypokinesis; perhaps some slightly worse wall motion in the distal anterior wall * proximal septal thickening is noted * moderate mitral regurgitation Ordered Studies Chest X-Ray 04/29/22 07:20 XR chest 1V portable HISTORY: 86 years-old Female weakness acute nausea and vomiting with weakness COMPARISON: Chest radiograph 10/06/2021 TECHNIQUE: Portable AP view of the chest FINDINGS: Cardiac silhouette is enlarged. Atherosclerosis of the thoracic aorta. No pneumothorax or large pleural effusion. Unchanged blunting of the costophrenic angles. Chronic interstitial coarsening. Degenerative changes of the shoulders and spine. IMPRESSION: No acute process. ACT 112: Negative or not required by law. The above report was generated using voice recognition software. It may contain grammatical, syntax or spelling errors. Electronically signed by: Chema Salcedo M.D. 04/29/2022 7:58 AM Ribs X-Ray 04/29/22 10:31 XR ribs RT min 2V CLINICAL HISTORY: recent fall, right rib pain COMPARISON: Chest radiograph October 06, 2021 and April 29, 2022. FINDINGS: Contrast within the right collecting system is from recent contrast- enhanced CT. There are old, healed fractures of the right seventh and eighth ribs. No acute right rib fractures are identified. No right pneumothorax is identified on this exam. IMPRESSION: No acute right rib fractures identified. No right pneumothorax. Old, healed right seventh and eighth rib fractures. ACT 112: Negative or not required by law. Electronically signed by: Oleksandr Napier M.D. 04/29/2022 5:[address] 04/29/22 12:17 CT head/brain wo con, CT angio neck with con, CT angio head w con CLINICAL HISTORY: 86 years-old Female with acute vertigo/ataxia. Acute vertigo with ataxia and dizziness TECHNIQUE: Multiple axial CT images of the head were obtained without contrast. CTA head and neck was also obtained following the intravenous administration of 120 mL Optiray 320. 3-D coronal and sagittal MIPS were obtained from the axial data set and were submitted for review. All measurements were obtained according to NASCET criteria. A dose lowering technique was utilized adhering to the principles of ALARA. COMPARISON: None. FINDINGS: CTA HEAD: No acute intracranial hemorrhage, midline shift, intracranial mass, hydrocephalus, territorial ischemia or abnormal extra-axial collection. Age- related involutional changes. White matter hypodensities suggest chronic microvascular ischemic disease. Study is motion degraded. A portion of the exam was then repeated. Senescent calcifications of the basal ganglia. Vascular calcifications. Nonspecific heterogeneity of the skull. No acute calvarial fracture. The paranasal sinuses, mastoid air cells, and middle ear cavities are clear. CTA HEAD AND NECK: There is prominent atherosclerotic plaque of the thoracic aortic arch and proximal great vessels. There is 50% luminal narrowing of the proximal left subclavian artery. There is high-grade (at least 70%) stenosis at the origin of the right subclavian artery. The innominate artery is patent. Atherosclerotic plaque of the common carotid arteries without high-grade stenosis. Atherosclerotic plaque of the left carotid bulb results in less than 50% narrowing. Atherosclerotic plaque of the right carotid bulb results in 70% stenosis of the proximal cervical segment right ICA on image 210. The remainder of the internal carotid arteries are patent. Atherosclerosis of the cavernous, clinoid and supraclinoid segments without high-grade stenosis. The middle and anterior cerebral arteries are patent. Mild stenosis at the origin of the left vertebral artery. The remainder of the left vertebral artery is widely patent. There is approximately 50% luminal narrowing at the origin of the right vertebral artery. There is occlusion of the the one segment of the right vertebral artery as seen on image 137 with reconstitution of flow within the distal V2 segment at the level of C1-C2. There is diminished flow within the distal right vertebral artery compared to the left. The basilar and posterior cerebral arteries are patent. Cerebral venous sinuses are patent. There is no abnormal intracranial enhancement. IMPRESSION: 1. Motion degraded exam without acute intracranial abnormality. 2. Occlusion of the V1 segment right vertebral artery with reconstitution of flow at the distal V2 segment at the level of C1-C2. 3. 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 4. 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 ACT 112: Negative or not required by law. The above report was generated using voice recognition software. It may contain grammatical, syntax or spelling errors. Electronically signed by: Chema Salcedo M.D. 04/29/2022 1:49 PM Head CTA 04/29/22 12:17 CT head/brain wo con, CT angio neck with con, CT angio head w con CLINICAL HISTORY: 86 years-old Female with acute vertigo/ataxia. Acute vertigo with ataxia and dizziness TECHNIQUE: Multiple axial CT images of the head were obtained without contrast. CTA head and neck was also obtained following the intravenous administration of 120 mL Optiray 320. 3-D coronal and sagittal MIPS were obtained from the axial data set and were submitted for review. All measurements were obtained according to NASCET criteria. A dose lowering technique was utilized adhering to the principles of ALARA. COMPARISON: None. FINDINGS: CTA HEAD: No acute intracranial hemorrhage, midline shift, intracranial mass, hydrocephalus, territorial ischemia or abnormal extra-axial collection. Age- related involutional changes. White matter hypodensities suggest chronic micr ovascular ischemic disease. Study is motion degraded. A portion of the exam was then repeated. Senescent calcifications of the basal ganglia. Vascular calcifications. Nonspecific heterogeneity of the skull. No acute calvarial fracture. The paranasal sinuses, mastoid air cells, and middle ear cavities are clear. CTA HEAD AND NECK: There is prominent atherosclerotic plaque of the thoracic aortic arch and proximal great vessels. There is 50% luminal narrowing of the proximal left subclavian artery. There is high-grade (at least 70%) stenosis at the origin of the right subclavian artery. The innominate artery is patent. Atherosclerotic plaque of the common carotid arteries without high-grade stenosis. Atherosclerotic plaque of the left carotid bulb results in less than 50% narrowing. Atherosclerotic plaque of the right carotid bulb results in 70% stenosis of the proximal cervical segment right ICA on image 210. The remainder of the internal carotid arteries are patent. Atherosclerosis of the cavernous, clinoid and supraclinoid segments without high-grade stenosis. The middle and anterior cerebral arteries are patent. Mild stenosis at the origin of the left vertebral artery. The remainder of the left vertebral artery is widely patent. There is approximately 50% luminal narrowing at the origin of the right vertebral artery. There is occlusion of the the one segment of the right vertebral artery as seen on image 137 with reconstitution of flow within the distal V2 segment at the level of C1-C2. There is diminished flow within the distal right vertebral artery compared to the left. The basilar and posterior cerebral arteries are patent. Cerebral venous sinuses are patent. There is no abnormal intracranial enhancement. IMPRESSION: 1. Motion degraded exam without acute intracranial abnormality. 2. Occlusion of the V1 segment right vertebral artery with reconstitution of flow at the distal V2 segment at the level of C1-C2. 3. 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 4. 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 ACT 112: Negative or not required by law. The above report was generated using voice recognition software. It may contain grammatical, syntax or spelling errors. Electronically signed by: Chema Salcedo M.D. 04/29/2022 1:49 PM Neck CTA 04/29/22 12:17 CT head/brain wo con, CT angio neck with con, CT angio head w con CLINICAL HISTORY: 86 years-old Female with acute vertigo/ataxia. Acute vertigo with ataxia and dizziness TECHNIQUE: Multiple axial CT images of the head were obtained without contrast. CTA head and neck was also obtained following the intravenous administration of 120 mL Optiray 320. 3-D coronal and sagittal MIPS were obtained from the axial data set and were submitted for review. All measurements were obtained according to NASCET criteria. A dose lowering technique was utilized adhering to the principles of ALARA. COMPARISON: None. FINDINGS: CTA HEAD: No acute intracranial hemorrhage, midline shift, intracranial mass, hydrocephalus, territorial ischemia or abnormal extra-axial collection. Age- related involutional changes. White matter hypodensities suggest chronic microvascular ischemic disease. Study is motion degraded. A portion of the exam was then repeated. Senescent calcifications of the basal ganglia. Vascular calcifications. Nonspecific heterogeneity of the skull. No acute calvarial fracture. The paranasal sinuses, mastoid air cells, and middle ear cavities are clear. CTA HEAD AND NECK: There is prominent atherosclerotic plaque of the thoracic aortic arch and proximal great vessels. There is 50% luminal narrowing of the proximal left subclavian artery. There is high-grade (at least 70%) stenosis at the origin of the right subclavian artery. The innominate artery is patent. Atherosclerotic plaque of the common carotid arteries without high-grade stenosis. Atherosclerotic plaque of the left carotid bulb results in less than 50% narrowing. Atherosclerotic plaque of the right carotid bulb results in 70% stenosis of the proximal cervical segment right ICA on image 210. The remainder of the internal carotid arteries are patent. Atherosclerosis of the cavernous, clinoid and supraclinoid segments without high-grade stenosis. The middle and anterior cerebral arteries are patent. Mild stenosis at the origin of the left vertebral artery. The remainder of the left vertebral artery is widely patent. There is approximately 50% luminal narrowing at the origin of the right vertebral artery. There is occlusion of the the one segment of the right vertebral artery as seen on image 137 with reconstitution of flow within the distal V2 segment at the level of C1-C2. There is diminished flow within the di stal right vertebral artery compared to the left. The basilar and posterior cerebral arteries are patent. Cerebral venous sinuses are patent. There is no abnormal intracranial enhancement. IMPRESSION: 1. Motion degraded exam without acute intracranial abnormality. 2. Occlusion of the V1 segment right vertebral artery with reconstitution of flow at the distal V2 segment at the level of C1-C2. 3. 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 4. 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 ACT 112: Negative or not required by law. The above report was generated using voice recognition software. It may contain grammatical, syntax or spelling errors. Electronically signed by: Chema Salcedo M.D. 04/29/2022 1:49 PM Brain MRI 04/29/22 14:00 Brain MRI WITHOUT CONTRAST HISTORY: acute vertigo/ataxia/visual change; eval CVA TECHNIQUE: Multiplanar multisequence MRI of the brain was performed without the use of contrast. COMPARISON STUDY: Head CT 04/29/2022. Brain MRI 03/05/2019. FINDINGS: Motion artifact. There is no mass, hematoma, midline shift, or acute infarct. The paranasal sinuses are clear. The mastoid air cells are clear. The ventricles and sulci demonstrate mild age-related involutional changes. Patchy and scattered foci of T2 hyperintensity seen within the periventricular and subcortical white matter are nonspecific but suggestive of advanced microvascular ischemic changes. This has slightly progressed in the interval. The major vascular flow voids at the skull base are well-maintained. IMPRESSION: 1. Motion artifact. No definite acute intracranial abnormality. 2. Advanced microvascular ischemic changes are again noted. This has slightly progressed in the interval. ACT 112: Negative or not required by law. Electronically signed by: Elmer Arizmendi M.D. 04/29/2022 6:00 PM Hospital Course (1) Acute severe vertigo: Likely an episode of VBI (vertebrobasilar insufficiency). Can't fully rule out peripheral vertigo/inner ear issues but less likely. Either way symptoms improved/resolved and she had no recurrent events. Past events of "syncope" may have been from VBI as well. Seen by [facility] Neurology & [facility] Vascular Surgery. Neurology felt that her acute vertigo/ataxia/visual disturbance indeed may have been from VBI. Vascular surgery advised against any surgical intervention of her right ICA stenosis or her right subclavian artery stenosis. For her severe PAD and cerebrovascular disease prevention there was discussion about changing her aspirin to plavix for secondary prevention. However, patient wished to stay on aspirin. She had been only taking it 3 times/week prior to this hospitalization. She was agreeable to increasing the aspirin to DAILY use. At discharge she will use meclizine on a prn basis along with aspirin 81mg once daily for her ICA stenosis/vertebral artery stenosis/subclavian stenosis. (2) Elevated troponin: Mild elevation. Likely myocardial demand ischemia in setting of #1. Peak troponin was 99. (3) LBBB (left bundle branch block): New since her prior EKG in 09/2021. Patient reports episodes of chest pain ("constriction") at home - this could be angina. Dr Yusef Rhodes from [facility] Cardiology saw patient in consult and advised prn nitro usage for her symptoms. He will follow her in cardiology clinic and additional testing could be pursued at that time. Invasive testing was deferred during this hospitalization. Continue aspirin 81mg daily. Lipitor 20mg daily was instituted. Coreg low-dose will be continued. (4) HFrEF (heart failure with reduced ejection fraction): Previous echo in 2020 showed EF of 45-50%. Repeat echo now 40-45%. See above. Compensated by exam during the hospital stay. (5) Hypomagnesemia: Past h/o low magnesium. Level checked and was wnl. (6) CKD (chronic kidney disease), stage III: stage 3b borderline stage 4 baseline CrCL is about 30 baseline creatinine is about 1.1 / 1.2 Cr stable during the hospitalization (7) Hypercholesterolemia: LDL = 67 HDL = 50 [id number], given the ICA stenosis, subclavian stenosis, concern for angina, etc -- started statin - lipitor 20mg daily (8) HTN (hypertension): continue low-dose LEBRON - dose reduced from 20mg/day to 10mg/day. continue coreg. (9) Impaired fasting glucose: HbA1C 6.3% in 09/2021. repeat level this admission 5.7%. (10) COPD (chronic obstructive pulmonary disease): no exacerbation while hospitalized. continue home inhalers. o2 sats stable. formal 2-step O2 test during the hospital stay was normal - thus, she does not need home O2. (11) Acute chest wall pain: right. patient "bumped" into a table at home about 1 week prior to admission. has had pain over the right chest wall since then. rib films on right - OLD fracture seen, but nothing acute. lidoderm patches prn. chest wall contusion likely. (12) Subclavian artery stenosis, right: severe, but equal pulses on exam, and no arm symptoms at this time vascular surgery consult completed - no surgical intervention recommended or needed continue aspirin & statin. 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 arrhythmia? Dr Yusef Rhodes from [facility] Cardiology saw in consult - could consider a loop recorder in future he will see her in clinic and determine whether to pursue such of note - telemetry did not show any arrhythmia while hospitalized Plan cleared by PT/OT to return to [facility] Total Time Total Time Spent Total Time Spent (In Minutes): 50 Discharge Plan Discharge Items Patient Disposition: Home - Self-Care Reason For Visit: Severe dizziness Discharge Diagnosis: Episode of severe dizziness, visual change, balance difficulty - resolved. Suspected to be due to blocked arteries in the back of the brain. Activity: Resume your previous activity Non-emergency contact: Primary Care Provider, Production Stage Manager and Neurologist Call non-emergency contact if: you have any medication questions and your symptoms worsen Follow-up/Referrals: Best Sow MD [Primary Care Provider] - (within 5 days ) Yusef Rhodes MD [Physician] - (2-4 weeks - for episodes of chest pain, passing out spells, etc) Chuckie Dixon MD [Physician] - (3-4 weeks for follow-up of dizzy spells) Diet: Heart Healthy Addtl Attending Provider Instructions: Ralph Mccollum were hospitalized after suffering an episode of severe dizziness, difficulty walking/imbalance, and distorted vision along with nausea. After doing several tests we found that you have blocked arteries on the back of the head/neck (vertebral artery), side of the neck (carotid artery), and in the right arm (subclavian artery). This series of blocked arteries may have led to a lack of blood flow to the back of the brain causing your dizziness episode. We call this "vertebrobasilar insufficiency." It is also possible that the dizziness came from your inner ear but this is much less likely. We had the vascular surgeon see you for the blocked arteries and he recommended medications rather than surgery. We also had the neurologist see you and he recommended either daily aspirin or daily plavix to help prevent another attack. You desired to stay on your aspirin and thus we are recommending you take a baby aspirin every day. Fortunately your MRI of the brain did NOT show a stroke. In addition, [facility] saw you for the episodes of chest pain you have been having for some time. Your chest pain symptoms are concerning that the pain is coming from the heart. He recommended that you have a bottle of nitroglycerin with you at home for these episodes of chest pain. [facility] will monitor the blocked arteries that I mentioned above. Recommendations - 1. take aspirin 81mg once daily EVERY DAY for prevention of dizziness attacks, stroke, and heart attack. 2. to help prevent further plaque build-up in your arteries please take atorvastatin 20mg once daily every day. This is for your cholesterol. 3. reduce your lisinopril dose from 20mg to 10mg once daily (simply break your 20mg tablet in half and take a half tablet daily). 4. if you experience an episode of chest pain please take the nitroglycerin tablets. Place 1 tablet under the tongue and let is dissolve. Sit down or lie down when you take the nitroglycerin tablet. Dr Rhodes from cardiology will monitor this problem and decide if you need additional testing for the chest pains. If you have to take 2 or more nitroglycerin tablets for chest pain please seek medical attention right away. The nitroglycerin can be taken every 5 minutes for a maximum of 3 tablets in 15 minutes. 5. if you have severe dizziness or vertigo (spinning) you can take meclizine 12.5mg every 8 hours as needed. Follow-up - 1. see Dr Sow within [address] Rhodes - [facility] Cardiology - within 2-[address] Dixon - [facility] Neurology - within the next few weeks Return to [facility] if - * you have fevers over 100 degrees * you have to take 2 or more tablets of nitroglycerin for chest pain * you have severe shortness of breath * you have an episode of severe dizziness/vertigo/balance troubles similar to the one that brought you to the hospital * you have any symptoms of stroke (see section below) * any other concerns It was my pleasure caring for you at [facility]! Please stay well, Dr Singleton Pending Studies at Discharge: No Stand-Alone Forms: My [facility], Smoking Cessation Medications and DC Order Prescriptions: New atorvastatin 20 mg Tablet 20 mg PO QAM Qty: 30 5RF Rx Instructions: for cholesterol meclizine 12.5 mg Tablet 12.5 mg PO Q8H PRN (Reason: severe dizziness/vertigo) Qty: 10 0RF nitroglycerin [Nitrostat] 0.4 mg Tablet, Sublingual 0.4 mg sublingual UD PRN (Reason: chest pain) Qty: 1 0RF Rx Instructions: max 3 tabs in 15 minutes Continued fluocinonide 0.05 % cream 1 applic topical DAILY Label Comments: Apply on the head for Psoriasis triamcinolone acetonide 0.1 % cream 1 applic topical DIRECTED PRN (Reason: Skin Irritation) Label Comments: Applied on the back for Psoriasis Rx Instructions: apply to dermatitis on trunk and extremities twice a day until till healed then as needed carvedilol 3.125 mg tablet 3.125 mg PO BID 90 Days Qty: 180 1RF fluticasone propionate 50 mcg/actuation spray,suspension 1 - 2 spray intranasal DAILY Qty: 18.2 5RF Anoro Ellipta 62.5-25 mcg/actuation blister with device 1 ea inhalation DAILY Qty: 60 5RF gabapentin 100 mg capsule See Rx Instructions .ROUTE .COMPLEX Qty: 60 5RF Dose Instruction: TAKE 2 CAPSULES BY MOUTH AT BEDTIME Rx Instructions: TAKE 2 CAPSULES BY MOUTH AT BEDTIME cholecalciferol (vitamin D3) 125 mcg (5,000 unit) tablet 125 mcg PO DAILY albuterol sulfate 90 mcg/actuation HFA aerosol inhaler 2 puff inhalation Q4H PRN (Reason: Shortness Of Breath) Qty: 1 calcium carbonate [Calcium 600] 600 mg calcium (1,500 mg) tablet 1,200 mg PO DAILY Probiotic 3 billion cell capsule 6,000 mmu cells PO DAILY Rx Instructions: administer with a meal nystatin 100,000 unit/gram cream 1 applic topical DAILY PRN (Reason: fungal) PreserVision AREDS [id number] osbl-vv-rymo capsule 1 cap PO BID magnesium 250 mg tablet 250 mg PO DAILY Qty: 30 0RF Rx Instructions: OTC diclofenac sodium [Voltaren Arthritis Pain] 1 % gel See Rx Instructions .ROUTE .COMPLEX Rx Instructions: APPLY TOPICALLY 2G 4 TIMES A DAY NEEDED FOR PAIN Changed lisinopril 20 mg tablet 10 mg PO DAILY Qty: 90 3RF aspirin 81 mg tablet,delayed release (DR/EC) 81 mg PO DAILY Qty: 90 0RF Label Comments: 81 mg PO 3 times weekly; Rx Instructions: TAKES TUESDAY, TUESDAY, & FRIDAYS. Discharge Orders: Discharge Order (Routine); Ordered 05/02/22 Ordered By: Lyle Purdy/Other Patient Handouts: Carotid Artery Disease Admission Data Admit Date/Time: 04/29/22 09:43 Attending Provider: Siuta,Lyle R Admit Provider: Lyle Singleton Primary Care Provider: Best Sow Other Providers: Lyle Singleton ; Chuckie Dixon ; Miquel Live ; Yusef Rhodes Other Interventions: Discharge Summary Assessment (RN) Last Done: 05/02/22 11:58 Coding Level of Care Code D/C DAY MANAGEMENT >30 MINS Diagnoses Acute severe vertigo R42 Elevated troponin R77.8 LBBB (left bundle branch block) I44.7 HFrEF (heart failure with reduced ejection fraction) I50.20 Hypomagnesemia E83.42 CKD (chronic kidney disease), stage III N18.30 Hypercholesterolemia E78.00 HTN (hypertension) I10 Impaired fasting glucose R73.01 COPD (chronic obstructive pulmonary disease) J44.9 Acute chest wall pain R07.89 Subclavian artery stenosis, right I77.1 Vertebrobasilar insufficiency G45.0 Vertebral artery stenosis I65.09 Carotid stenosis, right I65.21 Syncope and collapse R55
== END 2022-05-02 13:40 | disposition home or self-care (01) | DRG 69 ==
LOC: ED 06:55 → EDINP 09:43 → 2S 13:28
DX: I65.21 Occlusion and stenosis of right carotid artery; S22.41XA Multiple fractures of ribs, right side, initial encounter for closed fracture; I50.22 Chronic systolic (congestive) heart failure; Z91.040 Latex allergy status; I13.0 Hypertensive heart and chronic kidney disease with heart failure and stage 1 through stage 4 chronic kidney disease, or unspecified chronic kidney disease; Z88.1 Allergy status to other antibiotic agents; I67.82 Cerebral ischemia; E83.42 Hypomagnesemia; Y92.019 Unspecified place in single-family (private) house as the place of occurrence of the external cause; I44.7 Left bundle-branch block, unspecified; I67.89 Other cerebrovascular disease; R79.89 Other specified abnormal findings of blood chemistry; Z87.891 Personal history of nicotine dependence; R42 Dizziness and giddiness; E78.00 Pure hypercholesterolemia, unspecified; R73.03 Prediabetes; J44.9 Chronic obstructive pulmonary disease, unspecified; G45.0 Vertebro-basilar artery syndrome; R73.02 Impaired glucose tolerance (oral); W22.8XXA Striking against or struck by other objects, initial encounter; Z79.82 Long term (current) use of aspirin; I77.1 Stricture of artery; Z86.16 Personal history of COVID-19; N18.30 Chronic kidney disease, stage 3 unspecified

== ENCOUNTER 2022-08-30 11:20 | Inpatient (IN) ==
--- NOTE | 2022-08-30 12:51 | XRay Report ---
XR chest 1V portable CLINICAL HISTORY: weakness TECHNIQUE: Single frontal radiograph of the chest was obtained. Comparison: Comparison is made to rib series 04/29/2022 FINDINGS: No lines and tubes are seen. Cardiomegaly is noted. The aortic arch is calcified. Faint bibasilar air space opacities are seen. No evidence of pleural effusion or pneumothorax. HEALED rib fractures are s een. IMPRESSION: Faint bibasilar airspace opacities which may represent atelectasis, pneumonia, and/or aspiration. Sta ble cardiomegaly. ACT 112: Negative or not required by law. Electronically signed by: Jeff Mccollum M.D. 08/30/2022 12:50 PM
[2022-08-30 13:05] LABS: Basophils # (auto) 0.07 K/uL (0-0.2); Basophils % (auto) 0.8 %; Eosinophils # (auto) 0.19 K/uL (0-0.50); Eosinophils % (auto) 2.1 %; Hematocrit (blood only) 38.1 % (34.1-44.9); Hemoglobin 12.2 g/dl (12.0-16.0); Immature Granulocytes # (auto) 0.07 K/uL (0.00-0.02); Immature Granulocytes % (auto) 0.8 %; Lymphocytes # (auto) 1.38 K/uL (1.2-3.4); Lymphocytes % (auto) 15.3 %; Mean Corpuscular Hemoglobin 32.7 pg (25.0-34.0); Mean Corpuscular Volume 102.1 fL (80.0-100.0); Mean Platelet Volume 10.3 fL (9.4-12.3); Monocytes # (auto) 0.66 K/uL (0.24-0.82); Monocytes % (auto) 7.3 %; Neutrophils # (auto) 6.66 K/uL (1.4-6.5); Neutrophils % (auto) 73.7 %; Platelet Count 206 K/uL (130-400); RDW Coefficient of Variation 12.7 % (11.5-14.5); RDW Standard Deviation 47.6 fL (36.4-46.3); Red Blood Count 3.73 M/uL (3.93-5.22); White Blood Count 9.03 K/ul (4.8-10.8)
[2022-08-30 13:34] LABS: Troponin I High Sensitivity 69.3 pg/ml (0-14)
[2022-08-30 13:40] LABS: Thyroid Stimulating Hormone 6.935 uIu/ml (0.300-4.500)
--- NOTE | 2022-08-30 13:41 | History & Physical Report ---
Date of Service August 30, 2022 Assessment & Plan (1) Syncope: Plan: - Occurred this morning while sitting, unknown known down time, reported by initial responders that patient was w/o radial pulse at one point however ACLS report states she had been AAO x3 for them with stable VS, NSR on monitor with PACs. - Has longstanding history of such, has been seen by both neurology and cardiology--no definite diagnosis but feel it is most likely stenoses vs arrhythmia. She has a loop recorder, is on aspirin 81 daily + statin. - Patient did not have any warning s/s and is currently without any complaints. - EKG: sinus ruth with HR 58, sinus arrhythmia, LBBB which is not new. - Trop 69, previously elevated to this degree on admissions likely due to supply/demand mismatch, CKD and not indicative of ACS. - History of HFrEF w/ EF 40-45%, mild global hypokinesis, proximal septal wall thickening, moderate MR. - Patient does not appear volume depleted or hypervolemic. - Will interrogate her loop recorder, trend troponin, repeat echo, obtain orthostatic VS, and monitor on a telemetry bed overnight. - PT/OT to eval and treat. - Gentle IVF. (2) Carotid stenosis, right: Plan: - 70% narrowing of the right common carotid artery and its bifurcation. - Evaluated by vascular surgery for her stenoses on last admission and was not recommended for surgical intervention given she seems asymptomatic in that her syncope is likely unrelated to these. - Continue aspirin, statin. Patient recommended to switch to Plavix at one point by cardiology, however has been hesitant due to easy bruising. (3) Vertebral artery stenosis: Plan: - Per vascular surgery consult on 04/30/22: "CT angiogram the right vertebral V1 segment is occluded. The V2 segment reconstitutes. It is patent up through the intracranial basilar artery. The left vertebral is extremely large and dominant. This occlusion of the vertebral in the right may be a chronic finding due to the finding of a large left vertebral artery. With the large size left vertebral artery I doubt that her vertebral circulation is contributing to her syncopal episodes unless she gets profoundly hypotensive like she is claimed that she has in the past during her episodes." (4) Subclavian artery stenosis, right: Plan: - Recommend BP readings from left arm. - Per vascular surgery in April, no intervention or treatments required. (5) Elevated troponin: Plan: - Elevated to 69, suspect demand/supply mismacth with underlying CKD as cause, will trend overnight. (6) HFrEF (heart failure with reduced ejection fraction): Plan: - EF 40-45%, mild global hypokinesis, proximal septal wall thickening, moderate MR. - Repeat echo as above. - Strict I/Os, monitor daily weights. (7) CKD (chronic kidney disease), stage III: Plan: - BUN 34, Cr 1.40, at /near baseline. - Continue to monitor, renally dose meds as able, avoid nephrotoxins. (8) COPD (chronic obstructive pulmonary disease): Plan: - Continue home inhalers. Plan - Obs on med/tele overnight. - SCDs, Lovenox for VTE ppx. - Full Code. History of Present Illness Chief Complaint: syncope event this morning Primary Care Provider: Best Sow MD Gayle Perkins is an 87-year-old female with past medical history significant for cerebrovascular disease, vertebrobasilar insufficiency, recurrent syncopal events, hypertension, CKD3, hypothyroidism, COPD, and chronic anemia who is presenting today after syncopal episode earlier today. She lives at the [facility] in [place] and was on her way to an court messenger appointment when she suddenly passed out. Patient was seated in the transport van, the last thing she remembers is sitting in front of the event talking with the refrigerated national truck driver somewhere near [place], then woke up in front of her audiologists building, with an unknown amount of time loss. She been in her normal state of health over the past few days and had absolutely no warning signs prior to this happening to her today. She has been having these syncopal/"blackout "episodes for years now, and has been followed by cardiology without any established diagnosis. They often happen when she is in the seated position. In the past she had warning signs of nausea, vomiting, lightheadedness prior to the events but most recently they have been occurring without any prodrome. Her last episode was in May. He has been evaluated by cardiology and neurology, who feel it may be related to vertebrobasilar insufficiency, as she does have significant stenosis in the right vertebral, right ICA, and right subclavian artery. She remains on aspirin 81 mg daily and has been resistant to adding on Plavix as she bruises easily on aspirin already. In route, EMS initially reported no radial pulse, however per ACLS EMS report, she had been AOx3, 95% on 2 LNC and in normal sinus rhythm with PACs on the monitor during transport. Upon presentation she is mildly hypertensive, otherwise vital signs are within normal limits, stable. She is without any lightheadedness, dizziness, headache, vision change, weakness, numbness, or tingling. She has been able to ambulate to and from the bathroom without difficulty. Labs significant for BUN 34 creatinine 1.40, both at/near baseline. Troponin 69.3. TSH 6.9, free T4 pending. CXR: Faint bibasilar airspace opacities which may represent atelectasis, pneumonia, and/or aspiration. Stable cardiomegaly. Allergies Allergy/AdvReac Type Severity Reaction Status Date / Time latex Allergy Intermediate SEVERE Verified 07/27/22 13:24 ITCHING cephalexin Allergy Mild RASH Verified 07/27/22 13:24 Home Medications Medication Instructions Recorded Confirmed Type cholecalciferol (vitamin D3) 125 125 mcg PO DAILY 10/02/19 07/27/22 History mcg (5,000 unit) tablet nystatin 100,000 unit/gram topical 1 applic topical DAILY PRN fungal 12/23/20 07/27/22 History cream fluocinonide 0.05 % topical cream 1 applic topical DAILY 01/19/21 07/27/22 History triamcinolone acetonide 0.1 % 1 applic topical DIRECTED PRN 01/19/21 07/27/22 History topical cream Skin Irritation albuterol sulfate 90 mcg/actuation 2 puff inhalation Q4H PRN 04/10/21 07/27/22 History aerosol inhaler Shortness Of Breath #1 g vitamins A,C,I-pxxn-sbkape 14,320 1 cap PO BID 05/12/21 07/27/22 History unit-226 mg-200 unit capsule (PreserVision AREDS) calcium carbonate 600 mg calcium 1,200 mg PO DAILY 06/16/21 07/27/22 History (1,500 mg) tablet (Calcium) lactobacillus combination no.4 3 6,000 mmu cells PO DAILY 06/16/21 07/27/22 History billion cell capsule (Probiotic) magnesium 250 mg tablet 250 mg PO DAILY #30 tabs 10/09/21 07/27/22 Rx fluticasone propionate 50 1 - 2 spray intranasal DAILY #18.2 02/05/22 07/27/22 Rx mcg/actuation nasal mL spray,suspension umeclidinium 62.5 mcg-vilanterol 1 ea inhalation DAILY #60 ea 03/22/22 07/27/22 Rx 25 mcg/actuation powdr for inhalation (Anoro Ellipta) meclizine 12.5 mg tablet 12.5 mg PO Q8H PRN severe 05/02/22 07/27/22 Rx dizziness/vertigo #10 tabs nitroglycerin 0.4 mg sublingual 0.4 mg sublingual UD PRN chest 05/02/22 07/27/22 Rx tablet (Nitrostat) pain #1 btl carvedilol 3.125 mg tablet 3.125 mg PO BID 06/14/22 07/27/22 History gabapentin 100 mg capsule 200 mg PO HS 06/14/22 07/27/22 History levothyroxine 25 mcg tablet 25 mcg PO DAILY #90 tabs 06/17/22 07/27/22 Rx aspirin 81 mg tablet,delayed 81 mg PO DAILY 07/06/22 07/27/22 History release lisinopril 10 mg tablet 10 mg PO DAILY #90 tabs 07/27/22 07/27/22 Rx diclofenac sodium 1 % topical gel See Rx Instructions .Route 07/28/22 Rx .COMPLEX #300 grams Past Med/Surg History Medical History (Updated 08/30/22 @ 14:56 by Lina Deleon PA-C) Abnormal ECG Acute chest wall pain Acute severe vertigo ARF (acute renal failure) Arthritis, multiple joint involvement Balance problems Bradycardia Carotid stenosis, right Chest pain at rest Chronic cerebral ischemia CKD (chronic kidney disease), stage III COPD (chronic obstructive pulmonary disease) COVID-19 09/2021 - required hospitalization Elevated troponin Episodic lightheadedness HFrEF (heart failure with reduced ejection fraction) EF 45-50% - 2020 echo HTN (hypertension) Hypercholesterolemia Hypomagnesemia Impaired fasting glucose LBBB (left bundle branch block) Nocturia Osteoporosis Pasteurella infection with bacteremia, 2nd to cat scratch and RUE cellulitis - 06/16 Right arm cellulitis Secondary hypothyroidism Subclavian artery stenosis, right Syncope and collapse (05/15/14) UTI (urinary tract infection) recurrent Vertebral artery stenosis Vertebrobasilar insufficiency Surgical History H/O: hysterectomy History of breast biopsy History of bunionectomy History of carpal tunnel surgery History of inguinal hernia repair History of myringotomy History of rotator cuff surgery Jul 2011--Dr. Whitten Hx of adenoidectomy Hx of tonsillectomy S/P appendectomy S/P cholecystectomy Family History Mother , in her 80s of multiple CVAs Alzheimer disease Stroke Father , age 78 of COPD complications Emphysema, unspecified COPD (chronic obstructive pulmonary disease) Grandfather (Maternal) Colorectal cancer Uncle Prostate cancer Denies family history of Ovarian cancer Diabetes Coronary heart disease Heart disease Myocardial infarction Breast cancer Lung cancer Social History Smoking Status: Former smoker Tobacco Type: Cigarettes Age Started Using Tobacco: 23; Age Quit Using Tobacco: 61; Cigarettes Per Day: 1 ppd; Second Hand Exposure: No; Hx Alcohol Use: Yes Alcohol type: wine Alcohol Intake Frequency: Monthly or Less Alcohol Intake Frequency Comment: social Hx Substance Use: No Preferred Language: Kazakh Communication Ability: Effective Visual Impairment: Limited Hearing Ability: Use of Hearing Aid Audit Reviewer Required: No Beliefs That Will Affect Care: None marital status: / Current Living Situation: Alone Current Living Situation Comment: Independent living facility ([facility]) current occupational 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[employer], 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 How many Children do You have: 2 Feels Safe at Home: Yes Childhood Exposure to Second-Hand Smoke: Yes caffeine: Yes Dental Care, Regularly: No Physical Activity Frequency: Does not Exercise Seatbelt Use: always Sunscreen Use: No Assistive Devices: Cane, Glasses and Hearing Aid - Bilateral Review of Systems Review of Systems: Review of systems: Constitutional: No fever/chills, weakness, fatigue, myalgias, anorexia, night sweats Eyes: No diplopia, no worsening or blurred vision ENT: normal hearing, no trouble swallowing Respiratory: No cough, sputum, dyspnea at rest or on exertion Cardiovascular: No chest pain, tightness or palpitations Abdomen: No pain, nausea, vomiting, diarrhea or constipation : Denies dysuria, hematuria, increased urgency/frequency, urinary retention Musculoskeletal: No joint pain, calf pain, swelling Neurologic: No weakness, numbness/tingling, or balance problems Psychiatric: No anxiety or depression Skin: No rash or itch Physical Exam Physical Exam: General: awake, alert, no apparent distress Head: Normocephalic, atraumatic ENT: PERRL, EOMI, no pharyngeal exudate, mucous membranes moist Chest: Clear to auscultation, on room air, no adventitious breath sounds Cardiac: Regular rate and rhythm, no murmur, no JVD, normal peripheral pulses, good capillary refill Abdominal: NABS x 4 quadrants, soft, nontender to palpation, no rebound, guarding or tenderness Extremities: Normal inspection, no peripheral edema or erythema, calfs nontender to palpation Psych: Normal mood and affect Neuro: AAO x 3, strength intact bilaterally and rated 5/5, no motor deficits, speech is clear, no peripheral sensory deficits Skin: no rash or erythema Results & Data Results & Data ([facility]) Vital Signs (Past 12 Hours) Vital Signs Temp Pulse Resp BP Pulse Ox O2 Del Method 08/30/22 12:30 62 22 95 08/30/22 12:00 20 94 08/30/22 12:00 150/54 H 08/30/22 11:59 20 93 08/30/22 12:07 61 20 94 Room Air 08/30/22 11:46 36.5 C 58 L 20 158/49 H 95 Room Air Laboratory Results Abnormal lab results 08/30/22 08/30/22 08/30/22 Range/Units 11:39 11:39 11:39 RBC 3.73 L (3.93-5.22) M/uL MCV 102.1 H (80.0-100.0) fL RDW Std Deviation 47.6 H (36.4-46.3) fL Neut # (Auto) 6.66 H (1.4-6.5) K/uL Immature Gran # (Auto) 0.07 H (0.00-0.02) K/uL BUN 34 H (6-23) mg/dl Creatinine 1.40 H (0.6-1.2) mg/dl BUN/Creatinine Ratio 24.3 H (10-20) Glucose 114 H (70-99(Fasting)) mg/dl POC Glucose (70-99) mg/dl Troponin I High Sens 69.3 H* (0-14) pg/ml TSH 6.935 H (0.300-4.500) uIu/ml 08/30/22 Range/Units 11:46 RBC (3.93-5.22) M/uL MCV (80.0-100.0) fL RDW Std Deviation (36.4-46.3) fL Neut # (Auto) (1.4-6.5) K/uL Immature Gran # (Auto) (0.00-0.02) K/uL BUN (6-23) mg/dl Creatinine (0.6-1.2) mg/dl BUN/Creatinine Ratio (10-20) Glucose (70-99(Fasting)) mg/dl POC Glucose 114 H (70-99) mg/dl Troponin I High Sens (0-14) pg/ml TSH (0.300-4.500) uIu/ml Diagnostic Findings Chest X-Ray 08/30/22 12:07 XR chest 1V portable CLINICAL HISTORY: weakness TECHNIQUE: Single frontal radiograph of the chest was obtained. Comparison: Comparison is made to rib series 04/29/2022 FINDINGS: No lines and tubes are seen. Cardiomegaly is noted. The aortic arch is calcified. Faint bibasilar airspace opacities are seen. No evidence of pleural effusion or pneumothorax. HEALED rib fractures are seen. IMPRESSION: Faint bibasilar airspace opacities which may represent atelectasis, pneumonia, and/or aspiration. Stable cardiomegaly. ACT 112: Negative or not required by law. Electronically signed by: Jeff Mccollum M.D. 08/30/2022 12:50 PM Code Status & VTE Plan Code Status Full Code. Supervising Physician Co-Signing Physician Notes Patient was seen and examined independently I discussed the case with Lina RENE I reviewed pertinent past medical social family history and also the plan of care and agree with the plan of care. Patient had an episode of syncope while sitting this is been a persistent problem for her. She is a loop recorder in. Otherwise she feels frustrated but otherwise has no medical complaints or problems at this time. Patient suffers with chronic kidney disease otherwise follows with Dr. Rhodes who is coordinating her loop recorder. She does have carotid stenosis on the right Examination awake alert and appropriate I cannot hear any carotid bruits on the right heart regular without systolic murmurs lungs are clear her abdomen is NABS soft extremity without edema Will the patient in for monitoring interrogation of her loop recorder. Likely will have orthostatics and evaluation for ambulation before she is discharged Any exceptions will be noted below PG Care Time/CCT Total # of Minutes Spent Total Time Spent with Patient: Total time spent is greater than 50% in coordination of care (as documented) at patient's floor/unit and/or counseling patient: Coding Level of Care Code INT OBSERVATION CARE 70M LVL 3 Diagnoses Syncope R55 Carotid stenosis, right I65.21 Vertebral artery stenosis I65.09 Subclavian artery stenosis, right I77.1 Elevated troponin R77.8 HFrEF (heart failure with reduced ejection fraction) I50.20 CKD (chronic kidney disease), stage III N18.30 COPD (chronic obstructive pulmonary disease) J44.9
[2022-08-30 13:44] LABS: Albumin Globulin Ratio 1.2 (0.9-2); Albumin Level 3.6 gm/dl (3.4-5.0); BUN Creatinine Ratio 24.3 (10-20); Bilirubin,Total 0.6 mg/dl (0.2-1.0); Creatinine Clr Calc Pharmacy 27.1 ml/min; Est GFR (African American) 38.8 ml/min; Est GFR (Non-African American) 33.5 ml/min; Globulin 3.1 gm/dl (2.5-4.0); Potassium 4.4 mmol/L (3.5-5.1); Total Protein 6.7 gm/dl (6.0-8.3)
[2022-08-30] MEDS ORDERED: TRIAMCINOLONE ACET 0.1% CR 15 GM TUBE TOP PRN (15:12)
[2022-08-30] MEDS ORDERED: ALBUTEROL HFA 8 GM INHALER INH PRN (15:12)
[2022-08-30] MEDS ORDERED: NYSTATIN CR 15 GM TUBE EXT PRN (15:12)
[2022-08-30] MEDS ORDERED: POLYETHYLENE (MIRALAX) 17 GM PACK PO PRN (15:12)
[2022-08-30] MEDS ORDERED: ONDANSETRON INJ 2 MG/ML 2 ML VIAL IV PRN (15:12)
[2022-08-30] MEDS ORDERED: MECLIZINE 12.5 MG TAB PO PRN (15:12)
[2022-08-30] MEDS ORDERED: ALUMINUM/MAGNESIUM SUSP 30 ML UDC PO PRN (15:12)
[2022-08-30] MEDS ORDERED: NITROGLYCERIN SL 0.4 MG/TAB TAB SL PRN (15:12)
[2022-08-30] MEDS ORDERED: LACTATED RINGER'S 1,000 ML IV SCH (15:15)
[2022-08-30 15:42] LABS: T4 Free Thyroxine 0.92 ng/dl (0.61-1.60)
--- NOTE | 2022-08-30 17:10 | Electrocardiogram Report ---
Test Reason : Blood Pressure : / mmHG Vent. Rate : 058 BPM Atrial Rate : 058 BPM P-R Int : 202 ms QRS Dur : 126 ms QT Int : 470 ms P-R-T Axes : 046 -14 165 degrees QTc Int : 461 ms Poor data quality, interpretation may be adversely affected Sinus bradycardia with sinus arrhythmia Left bundle branch block Abnormal ECG When compared with ECG of 14-JUN-2022 20:50, No significant change was found Confirmed by Irineo Jacobsen ([id number]) on 08/30/2022 5:10:16 PM Referred By: Confirmed By:Irineo Jacobsen
[2022-08-30 17:51] LABS: Appearance Urine Clear (Clear); Bacteria Urine Automated Negative (Negative); Bilirubin Urine Negative (Negative); Blood Urine Negative (Negative); Color Urine Yellow; Glucose Urine UA Negative (Negative); Ketones Urine Negative (Negative); Leukocyte Esterase Urine 2+ (Negative); Nitrite Urine Negative (Negative); Protein Urine Trace (Negative); RBC Urine Automated 0-4 /hpf (0-4); Specific Gravity Urine 1.012 (1.000-1.030); Urobilinogen Urine Negative (Negative); WBC Urine Automated >30 /hpf (0-5)
--- NOTE | 2022-08-30 18:30 | Emergency Department Note ---
Impression & Plan Elevated troponin, Syncope, Situational anxiety ED Provider Note CHIEF COMPLAINT: Syncopal episode HISTORY OF PRESENT ILLNESS: This 87-year-old patient presents to the emergency department with complaints of a syncopal episode. Patient was on her way to audiology and had several consecutive episodes of unresponsiveness. The patient was taken to the nearest EMS station where a lack of radial pulses was reported. Heart rate of 50 was acknowledged but the patient did return to baseline mental status without intervention. The patient states that she has a history of similar episodes and has a "chip" implanted in her left chest. She states she supposed to had a button when these episodes occur, but she states she was not aware of the episode at the time. She denies any recent illnesses but states she does not quite remember what happened today. She denies any injury during the events. She did not have any chest pain or palpitations. She is quite anxious about the events preceding the visit today. Patient states she follows with Dr. Rhodes of cardiology. REVIEW OF SYSTEMS: A review of systems was performed with positives and pertinent negatives listed in the history of present illness. 10 systems were reviewed and are otherwise negative. ALLERGIES: see below MEDICATIONS: see below PMH: see below SOCIAL HISTORY: see below DDx: Vasovagal event, dehydration, infection, hypoglycemia, electrolyte abnormalities, cardiac sources, intracerebral event, pulmonary embolism, seizure, toxicologic, neurologic, as well as other pathologies. PHYSICAL EXAM: Vital signs reviewed. General: Well-appearing but anxious 87-year-old female, in no significant distress. HEENT: No scleral icterus, PERRLA, neck supple. Moist mucous membranes Cardiovascular: Normal sinus rhythm, systolic ejection murmur Pulmonary: Clear to auscultation bilaterally, normal work of breathing. Abdomen: Soft, nontender, nondistended, positive bowel sounds. Musculoskeletal: Atraumatic, no peripheral edema. Neurologic: Patient awake alert and oriented x 3, speech is clear Skin: Warm, dry, no rash EMERGENCY DEPARTMENT COURSE/MDM: This patient was evaluated and appeared to be in no significant distress. IV access was obtained and laboratory work was drawn. The patient was placed on the cardiac tech and noted to be in a normal sinus rhythm. The patient had no ectopy on the cardiac tech. Laboratory work reveals an elevated troponin however this is her baseline. The patient did not have any recurrent episodes. Evaluation seems to be largely reassuring. Patient's chest x-ray reveals bibasilar opacities. UA is negative for infection. The patient will be evaluated by the hospitalist service for further evaluation and management. MONITORING: An order for cardiac monitoring was placed and the patient is noted to be in a normal sinus rhythm at 65 beats per minute. RADIOLOGY: See below EKG: Sinus bradycardia with sinus arrhythmia at 58 bpm. Left bundle branch block, QTC of 461. No significant change when compared to June 14, 2022. DISPOSITION: Admission Past Med/Surg History Medical History (Updated 08/30/22 @ 18:38 by Luly Elam MD) Abnormal ECG Acute chest wall pain Acute severe vertigo ARF (acute renal failure) Arthritis, multiple joint involvement Balance problems Bradycardia Carotid stenosis, right Chest pain at rest Chronic cerebral ischemia CKD (chronic kidney disease), stage III COPD (chronic obstructive pulmonary disease) COVID-19 09/2021 - required hospitalization Elevated troponin Episodic lightheadedness HFrEF (heart failure with reduced ejection fraction) EF 45-50% - 2020 echo HTN (hypertension) Hypercholesterolemia Hypomagnesemia Impaired fasting glucose LBBB (left bundle branch block) Nocturia Osteoporosis Pasteurella infection with bacteremia, 2nd to cat scratch and RUE cellulitis - 06/16 Right arm cellulitis Secondary hypothyroidism Subclavian artery stenosis, right Syncope and collapse (05/15/14) UTI (urinary tract infection) recurrent Vertebral artery stenosis Vertebrobasilar insufficiency Surgical History H/O: hysterectomy History of breast biopsy History of bunionectomy History of carpal tunnel surgery History of inguinal hernia repair History of myringotomy History of rotator cuff surgery Jul 2011--Dr. Whitten Hx of adenoidectomy Hx of tonsillectomy S/P appendectomy S/P cholecystectomy Family History Mother , in her 80s of multiple CVAs Alzheimer disease Stroke Father , age 78 of COPD complications Emphysema, unspecified COPD (chronic obstructive pulmonary disease) Grandfather (Maternal) Colorectal cancer Uncle Prostate cancer Denies family history of Ovarian cancer Diabetes Coronary heart disease Heart disease Myocardial infarction Breast cancer Lung cancer Social History Smoking Status: Former smoker Tobacco Type: Cigarettes Age Started Using Tobacco: 23; Age Quit Using Tobacco: 61; Cigarettes Per Day: 1 ppd; Second Hand Exposure: No; Hx Alcohol Use: No Hx Substance Use: No Preferred Language: Palauan Communication Ability: Effective Visual Impairment: Limited Hearing Ability: Use of Hearing Aid Director Operations Required: No Beliefs That Will Affect Care: None marital status: / Current Living Situation: Personal Care Facility Current Living Situation Comment: [facility] current occupational 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[employer], 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 How many Children do You have: 2 Feels Safe at Home: Yes Childhood Exposure to Second-Hand Smoke: Yes caffeine: Yes Dental Care, Regularly: No Physical Activity Frequency: Does not Exercise Seatbelt Use: always Sunscreen Use: No Assistive Devices: Cane, Denture - Upper, Denture - Lower, Glasses and Hearing Aid - Bilateral Allergies Allergies Allergy/AdvReac Type Severity Reaction Status Date / Time latex Allergy Intermediate SEVERE Verified 07/27/22 13:24 ITCHING cephalexin Allergy Mild RASH Verified 07/27/22 13:24 Home Meds Home Medications Medication Instructions Recorded Confirmed cholecalciferol (vitamin D3) 125 125 mcg PO DAILY 10/02/19 08/30/22 mcg (5,000 unit) tablet nystatin 100,000 unit/gram topical 1 applic topical DAILY PRN fungal 12/23/20 08/30/22 cream fluocinonide 0.05 % topical cream 1 applic topical DAILY 01/19/21 08/30/22 triamcinolone acetonide 0.1 % 1 applic topical DIRECTED PRN 01/19/21 08/30/22 topical cream Skin Irritation albuterol sulfate 90 mcg/actuation 2 puff inhalation Q4H PRN 04/10/21 08/30/22 aerosol inhaler Shortness Of Breath #1 g vitamins A,C,Q-mmzt-vrmmvz 14,320 1 cap PO BID 05/12/21 08/30/22 unit-226 mg-200 unit capsule (PreserVision AREDS) calcium carbonate 600 mg calcium 1,200 mg PO DAILY 06/16/21 08/30/22 (1,500 mg) tablet (Calcium) lactobacillus combination no.4 3 6,000 mmu cells PO DAILY 06/16/21 08/30/22 billion cell capsule (Probiotic) carvedilol 3.125 mg tablet 3.125 mg PO BID 06/14/22 08/30/22 gabapentin 100 mg capsule 200 mg PO HS 06/14/22 08/30/22 aspirin 81 mg tablet,delayed 81 mg PO DAILY 07/06/22 08/30/22 release atorvastatin 20 mg tablet 20 mg PO DAILY 08/30/22 08/30/22 Previous Rx's Medication Instructions Recorded magnesium 250 mg tablet 250 mg PO DAILY #30 tabs 10/09/21 fluticasone propionate 50 1 - 2 spray intranasal DAILY #18.2 02/05/22 mcg/actuation nasal mL spray,suspension umeclidinium 62.5 mcg-vilanterol 1 ea inhalation DAILY #60 ea 03/22/22 25 mcg/actuation powdr for inhalation (Anoro Ellipta) meclizine 12.5 mg tablet 12.5 mg PO Q8H PRN severe 05/02/22 dizziness/vertigo #10 tabs nitroglycerin 0.4 mg sublingual 0.4 mg sublingual UD PRN chest 05/02/22 tablet (Nitrostat) pain #1 btl levothyroxine 25 mcg tablet 25 mcg PO DAILY #90 tabs 06/17/22 lisinopril 10 mg tablet 10 mg PO DAILY #90 tabs 07/27/22 diclofenac sodium 1 % topical gel See Rx Instructions .Route 07/28/22 .COMPLEX #300 grams Results & Data (ED) Vital Signs Vital Signs - 24 hr 08/30/22 11:46 08/30/22 12:07 08/30/22 11:59 Temperature 36.5 C Temperature Source Oral Pulse Rate 58 L 61 Pulse Rate from SpO2 Sensor 58 L Pulse Rhythm Regular Regular Pulse Strength Normal Respiratory Rate 20 20 20 Respiratory Effort / Characteristics Non-Labored Spontaneous Respiratory Depth Normal Respiratory Pattern Regular Blood Pressure 158/49 H Blood Pressure Mean 85 Pulse Oximetry 95 94 93 Oxygen Delivery Method Room Air Room Air Sepsis Recent Fever Within 48 Hours No Sepsis New/Unexplained Change in Mental Status N/A Sepsis Action Taken by Nursing No Action Required 08/30/22 12:00 08/30/22 12:00 08/30/22 12:30 Temperature Temperature Source Pulse Rate 62 Pulse Rate from SpO2 Sensor 71 62 Pulse Rhythm Pulse Strength Respiratory Rate 20 22 Respiratory Effort / Characteristics Respiratory Depth Respiratory Pattern Blood Pressure 150/54 H Blood Pressure Mean 86 Pulse Oximetry 94 95 Oxygen Delivery Method Sepsis Recent Fever Within 48 Hours Sepsis New/Unexplained Change in Mental Status Sepsis Action Taken by Nursing 08/30/22 13:00 08/30/22 13:00 08/30/22 13:30 Temperature Temperature Source Pulse Rate 63 72 Pulse Rate from SpO2 Sensor 62 Pulse Rhythm Pulse Strength Respiratory Rate 16 23 Respiratory Effort / Characteristics Respiratory Depth Respiratory Pattern Blood Pressure 171/68 H Blood Pressure Mean 102 Pulse Oximetry 96 Oxygen Delivery Method Sepsis Recent Fever Within 48 Hours Sepsis New/Unexplained Change in Mental Status Sepsis Action Taken by Nursing 08/30/22 13:31 08/30/22 13:31 Temperature Temperature Source Pulse Rate 70 Pulse Rate from SpO2 Sensor Pulse Rhythm Pulse Strength Respiratory Rate 18 Respiratory Effort / Characteristics Respiratory Depth Respiratory Pattern Blood Pressure 177/63 H Blood Pressure Mean 101 Pulse Oximetry Oxygen Delivery Method Sepsis Recent Fever Within 48 Hours Sepsis New/Unexplained Change in Mental Status Sepsis Action Taken by [facility] Medications Current Medication List: was personally reviewed by me Laboratory Data Attestation: I reviewed the patient's lab results. Result diagrams: 08/30/22 11:39 08/30/22 11:39 Lab Results 08/30/22 08/30/22 08/30/22 Range/Units 11:39 11:39 11:39 WBC 9.03 (4.8-10.8) K/ul RBC 3.73 L (3.93-5.22) M/uL Hgb 12.2 (12.0-16.0) g/dl Hct 38.1 (34.1-44.9) % MCV 102.1 H (80.0-100.0) fL MCH 32.7 (25.0-34.0) pg MCHC 32.0 (32.0-36.0) g/dL RDW Std Deviation 47.6 H (36.4-46.3) fL RDW Coeff of Stiven 12.7 (11.5-14.5) % Plt Count 206 (130-400) K/uL MPV 10.3 (9.4-12.3) fL Immature Gran % (Auto) 0.8 % Neut % (Auto) 73.7 % Lymph % (Auto) 15.3 % Bureau % (Auto) 7.3 % Eos % (Auto) 2.1 % Baso % (Auto) 0.8 % Neut # (Auto) 6.66 H (1.4-6.5) K/uL Lymph # (Auto) 1.38 (1.2-3.4) K/uL Bureau # (Auto) 0.66 (0.24-0.82) K/uL Eos # (Auto) 0.19 (0-0.50) K/uL Baso # (Auto) 0.07 (0-0.2) K/uL Immature Gran # (Auto) 0.07 H (0.00-0.02) K/uL Sodium 140 (136-145) mmol/L Potassium 4.4 (3.5-5.1) mmol/L Chloride 106 (98-107) mmol/L Carbon Dioxide 27 (21-32) mmol/L Anion Gap 7 (3-11) BUN 34 H (6-23) mg/dl Creatinine 1.40 H (0.6-1.2) mg/dl Est Cr Clr Drug Dosing 27.1 ml/min Est GFR ( Amer) 38.8 ml/min Est GFR (Non-Af Amer) 33.5 ml/min BUN/Creatinine Ratio 24.3 H (10-20) Glucose 114 H (70-99(Fasting)) mg/dl POC Glucose (70-99) mg/dl Calcium 9.0 (8.5-10.1) mg/dl Magnesium (1.7-2.4) mg/dl Total Bilirubin 0.6 (0.2-1.0) mg/dl AST 18 (13-39) U/L ALT 12 (7-52) U/L Alkaline Phosphatase 49 (34-104) U/L Troponin I High Sens 69.3 H* (0-14) pg/ml Total Protein 6.7 (6.0-8.3) gm/dl Albumin 3.6 (3.4-5.0) gm/dl Globulin 3.1 (2.5-4.0) gm/dl Albumin/Globulin Ratio 1.2 (0.9-2) TSH 6.935 H (0.300-4.500) uIu/ml Free T4 0.92 (0.61-1.60) ng/dl SARS-CoV-2 (PCR) (Negative) 12/05/22 12/05/22 12/05/22 Range/Units 11:39 11:45 11:46 WBC (4.8-10.8) K/ul RBC (3.93-5.22) M/uL Hgb (12.0-16.0) g/dl Hct (34.1-44.9) % MCV (80.0-100.0) fL MCH (25.0-34.0) pg MCHC (32.0-36.0) g/dL RDW Std Deviation (36.4-46.3) fL RDW Coeff of Stiven (11.5-14.5) % Plt Count (130-400) K/uL MPV (9.4-12.3) fL Immature Gran % (Auto) % Neut % (Auto) % Lymph % (Auto) % Bureau % (Auto) % Eos % (Auto) % Baso % (Auto) % Neut # (Auto) (1.4-6.5) K/uL Lymph # (Auto) (1.2-3.4) K/uL Bureau # (Auto) (0.24-0.82) K/uL Eos # (Auto) (0-0.50) K/uL Baso # (Auto) (0-0.2) K/uL Immature Gran # (Auto) (0.00-0.02) K/uL Sodium (136-145) mmol/L Potassium (3.5-5.1) mmol/L Chloride (98-107) mmol/L Carbon Dioxide (21-32) mmol/L Anion Gap (3-11) BUN (6-23) mg/dl Creatinine (0.6-1.2) mg/dl Est Cr Clr Drug Dosing ml/min Est GFR ( Amer) ml/min Est GFR (Non-Af Amer) ml/min BUN/Creatinine Ratio (10-20) Glucose (70-99(Fasting)) mg/dl POC Glucose 114 H (70-99) mg/dl Calcium (8.5-10.1) mg/dl Magnesium 1.8 (1.7-2.4) mg/dl Total Bilirubin (0.2-1.0) mg/dl AST (13-39) U/L ALT (7-52) U/L Alkaline Phosphatase (34-104) U/L Troponin I High Sens (0-14) pg/ml Total Protein (6.0-8.3) gm/dl Albumin (3.4-5.0) gm/dl Globulin (2.5-4.0) gm/dl Albumin/Globulin Ratio (0.9-2) TSH (0.300-4.500) uIu/ml Free T4 (0.61-1.60) ng/dl SARS-CoV-2 (PCR) NEGATIVE (Negative) Administered Medications Lactated Ringer's (Lr) 1,000 mls @ 80 mls/hr IV .[id number] GARO Stop: 08/31/22 03:44 Last Admin: 08/30/22 16:38 Dose: 80 mls/hr Documented By: [id number] Imaging Data Radiologist's Impression: Chest X-Ray 08/30/22 12:07 XR chest 1V portable CLINICAL HISTORY: weakness TECHNIQUE: Single frontal radiograph of the chest was obtained. Comparison: Comparison is made to rib series 04/29/2022 FINDINGS: No lines and tubes are seen. Cardiomegaly is noted. The aortic arch is calcified. Faint bibasilar airspace opacities are seen. No evidence of pleural effusion or pneumothorax. HEALED rib fractures are seen. IMPRESSION: Faint bibasilar airspace opacities which may represent atelectasis, pneumonia, and/or aspiration. Stable cardiomegaly. ACT 112: Negative or not required by law. Electronically signed by: Jeff Mccollum M.D. 08/30/2022 12:50 PM Blood Pressure Blood Pressure Findings: Elevated blood pressure Blood Pressure Disposition: further management by hospitalist Discharge Plan Visit Data Chief Complaint: Syncope Stated Complaint: SYNCOPE ED Provider: Luly Elam Discharge Problem: Elevated troponin, Syncope, Situational anxiety Patient Disposition: Admitted As Inpatient Discharge Instructions Interventions: ED Discharge Assessment Last Done: 08/30/22 15:36
[2022-08-30] MEDS: GABAPENTIN 100 MG CAP PO SCH (21:48)
[2022-08-30] MEDS: carvediloL 3.125 MG TAB PO SCH (21:49)
[2022-08-30] MEDS: MULTIVITAMIN TAB PO SCH (21:50)
[2022-08-30] MEDS: DICLOFENAC SOD 1% GEL 100 GM TUBE EXT PRN (22:32)
[2022-08-31] MEDS: LEVOTHYROXINE SODIUM 25 MCG TABLET PO SCH (06:26)
[2022-08-31] MEDS: ADVANCED PROBIOTIC 1250 MG CAPSULE PO SCH (09:02)
[2022-08-31] MEDS: ATORVASTATIN 20 MG TAB PO SCH (09:02)
[2022-08-31] MEDS: ASPIRIN 81 MG ECTAB PO SCH (09:02)
[2022-08-31] MEDS: lisinopril 10 MG TAB PO SCH (09:02)
[2022-08-31] MEDS: CHOLECALCIFEROL 5,000 UNITS 125 MCG TAB PO SCH (09:03)
[2022-08-31] MEDS: MAGNESIUM OXIDE 400 MG TAB PO SCH (09:03)
[2022-08-31] MEDS: CALCIUM CARBONATE 1250MG TAB PO SCH (09:03)
[2022-08-31] MEDS: carvediloL 3.125 MG TAB PO SCH ×3 (09:03→22:17)
[2022-08-31] MEDS: MULTIVITAMIN TAB PO SCH ×2 (09:03→22:16)
[2022-08-31] MEDS: FLUTICASONE PROPIONATE NA SPR 16 GM BTL SCH (09:03)
[2022-08-31] MEDS: FLUOCINONIDE 0.05% CR 15 GM TUBE EXT SCH (09:04)
[2022-08-31] MEDS: UMECLIDINIUM/VILANTEROL 62.5/25MCG 7 PUFFS/INHALER INH SCH (09:05)
[2022-08-31] MEDS: DICLOFENAC SOD 1% GEL 100 GM TUBE EXT PRN ×2 (09:05→22:23)
--- NOTE | 2022-08-31 13:29 | XCELERA ---
[id number]
--- NOTE | 2022-08-31 20:05 | Hospitalist Progress Note ---
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 no prodromal symptoms or warning. loss of urine during the event. loop recorder interrogation - numerous pauses & bradycardia seen on interrogation but interestingly NO pauses/block/bradycardia during the event yesterday. VBI has been suspected in the past given her severe PAD as below. for completeness sake will obtain EEG - r/o seizures as cause of her events. keep on tele. monitor overnight. (2) Carotid stenosis, right: Plan: 70% narrowing of the right common carotid artery and its bifurcation. Evaluated by vascular surgery for her stenoses on last admission and was not recommended for surgical intervention Continue aspirin, statin. Patient recommended to switch to Plavix at one point by cardiology, however has been hesitant due to easy bruising. (3) Vertebral artery stenosis: Plan: Seen by neurology and vascular surgery for this in the past. VBI as the cause of her syncope was entertained. Avoidance of hypotension advised. Can't rule out that VBI continues to be culprit for her events. See above. (4) Subclavian artery stenosis, right: Plan: Per vascular surgery in April no intervention or treatments required. Cont asa. Cont statin. (5) Elevated troponin: Plan: Likely myocardial demand ischemia in setting of #1. No evidence of ACS. (6) HFrEF (heart failure with reduced ejection fraction): Plan: EF 40-45%, mild global hypokinesis, proximal septal wall thickening, moderate MR on prior echo earlier in 2021. Repeat echo today -- EF now mildly better - 45-50%. Appears compensated today. Until seen by cardiology - and given her pauses & bradycardia on loop recorder interrogation - hold coreg. (7) COPD (chronic obstructive pulmonary disease): Plan: Continue home inhalers. No flare at this time (8) Chronic kidney disease, stage IV (severe): Plan: baseline CrCl upper 20s bmp am for stability (9) UTI (urinary tract infection): Plan: GPC on urine cx start amox renally dosed follow cx to completion (10) Anemia: Plan: repeat b12/folate in am (11) Hypothyroidism: Plan: TSH minimally elevated this admission was started on synthroid earlier this year reasonable to increase synthroid dose will need repeat TSH in 6 weeks as outpatient Plan obtain PT eval to ensure safe to d/c back to [facility] once medically stable Admission and Anticipated Discharge Date Admission Date: August 30, 2022 Subjective patient without complaints during the visit was sitting in chair has had no syncope since admission no near-syncope no dizziness no vertigo upset she can't go home today interrogation of loop recorder completed today - numerous minor pauses up to 5 sec seen along with episodes of bradycardia no AV block no rapid arrhythmias seen patient states that during yesterday's syncopal event, much like previous events, she had urinary incontinence she typically has prodromal symptoms prior to her syncope but yesterday's event came on w/o warning tele stable overnight except for bradycardia Review of Systems Review of Systems: gen - eating ok cv - no cp pulm - no dyspnea GI - no nausea or emesis Physical Exam Physical Exam: gen - NAD, sitting in chair neck - no JVD heart - RRR, s1 s2, 1-2/6 systolic murmur LLSB lungs - CTA b/l abd - soft NT ND BS+ ext - trace edema b/l, pulses 2+ b/l Results & Data Results & Data ([facility]) Vital Signs (Past 12 Hours) Vital Signs Temp Pulse Resp BP Pulse Ox O2 Del Method 08/31/22 19:53 36.6 C 69 16 159/59 H 97 Room Air 08/31/22 18:18 68 145/62 H 08/31/22 15:31 36.5 C 66 20 192/71 H 97 Room Air 08/31/22 13:35 95 08/31/22 12:00 37.1 C 71 16 168/70 H 96 Room Air Laboratory Results Laboratory Results - last 24 hr 08/30/22 08/31/22 08/31/22 22:38 04:25 10:15 Troponin I High Sens 76.4 H* 80.4 H* 70.5 H* PG Care Time/CCT Total # of Minutes Spent Total Time Spent with Patient: Total time spent is greater than 50% in coordination of care (as documented) at patient's floor/unit and/or counseling patient: Coding Level of Care Code 59957 Subseq Obs Care Lvl 3 Diagnoses Syncope R55 Carotid stenosis, right I65.21 Vertebral artery stenosis I65.09 Subclavian artery stenosis, right I77.1 Elevated troponin R77.8 HFrEF (heart failure with reduced ejection fraction) I50.20 COPD (chronic obstructive pulmonary disease) J44.9 Chronic kidney disease, stage IV (severe) N18.4 UTI (urinary tract infection) N39.0 Anemia D64.9 Hypothyroidism E03.9
[2022-08-31] MEDS: GABAPENTIN 100 MG CAP PO SCH (22:16)
[2022-08-31] MEDS: AMOXICILLIN 250 MG CAP PO SCH (22:22)
[2022-09-01] MEDS: LEVOTHYROXINE SODIUM 25 MCG TABLET PO SCH ×2 (04:34→07:19)
[2022-09-01 06:31] LABS: Creatinine Clr Calc Pharmacy 31.6 ml/min; Est GFR (African American) 47.7 ml/min; Est GFR (Non-African American) 41.1 ml/min
[2022-09-01 06:34] LABS: BUN Creatinine Ratio 28.4 (10-20); Calcium 8.7 mg/dl (8.5-10.1); Creatinine Clr Calc Pharmacy 32.1 ml/min; Est GFR (African American) 48.7 ml/min; Potassium 4.2 mmol/L (3.5-5.1)
[2022-09-01] MEDS: ATORVASTATIN 20 MG TAB PO SCH (09:00)
[2022-09-01] MEDS: ASPIRIN 81 MG ECTAB PO SCH (09:00)
[2022-09-01] MEDS: AMOXICILLIN 250 MG CAP PO SCH ×2 (09:00→20:35)
[2022-09-01] MEDS: lisinopril 10 MG TAB PO SCH (09:00)
[2022-09-01] MEDS: MULTIVITAMIN TAB PO SCH ×2 (09:00→20:35)
[2022-09-01] MEDS: ADVANCED PROBIOTIC 1250 MG CAPSULE PO SCH (09:00)
[2022-09-01] MEDS: CHOLECALCIFEROL 5,000 UNITS 125 MCG TAB PO SCH (09:00)
[2022-09-01] MEDS: CALCIUM CARBONATE 1250MG TAB PO SCH (09:00)
[2022-09-01] MEDS: MAGNESIUM OXIDE 400 MG TAB PO SCH (09:00)
[2022-09-01] MEDS: DICLOFENAC SOD 1% GEL 100 GM TUBE EXT PRN ×2 (09:01→20:34)
[2022-09-01] MEDS: UMECLIDINIUM/VILANTEROL 62.5/25MCG 7 PUFFS/INHALER INH SCH (09:01)
[2022-09-01] MEDS: FLUOCINONIDE 0.05% CR 15 GM TUBE EXT SCH (09:01)
[2022-09-01] MEDS: FLUTICASONE PROPIONATE NA SPR 16 GM BTL SCH (09:01)
--- NOTE | 2022-09-01 09:16 | Electroencephalogram ---
EEG Procedure Note Date of Service September 01, 2022 Start / End Times Start Time: 830 End Time: [address] Singleton History 87-year-old with history of syncope versus seizures Home Medication List Medication Instructions Recorded Confirmed Type cholecalciferol (vitamin D3) 125 125 mcg PO DAILY 10/02/19 08/30/22 History mcg (5,000 unit) tablet nystatin 100,000 unit/gram topical 1 applic topical DAILY PRN fungal 12/23/20 08/30/22 History cream fluocinonide 0.05 % topical cream 1 applic topical DAILY 01/19/21 08/30/22 History triamcinolone acetonide 0.1 % 1 applic topical DIRECTED PRN 01/19/21 08/30/22 History topical cream Skin Irritation albuterol sulfate 90 mcg/actuation 2 puff inhalation Q4H PRN 04/10/21 08/30/22 History aerosol inhaler Shortness Of Breath #1 g vitamins A,C,Q-iond-emkgog 14,320 1 cap PO BID 05/12/21 08/30/22 History unit-226 mg-200 unit capsule (PreserVision AREDS) calcium carbonate 600 mg calcium 1,200 mg PO DAILY 06/16/21 08/30/22 History (1,500 mg) tablet (Calcium) lactobacillus combination no.4 3 6,000 mmu cells PO DAILY 06/16/21 08/30/22 History billion cell capsule (Probiotic) magnesium 250 mg tablet 250 mg PO DAILY #30 tabs 10/09/21 08/30/22 Rx fluticasone propionate 50 1 - 2 spray intranasal DAILY #18.2 02/05/22 08/30/22 Rx mcg/actuation nasal mL spray,suspension umeclidinium 62.5 mcg-vilanterol 1 ea inhalation DAILY #60 ea 03/22/22 08/30/22 Rx 25 mcg/actuation powdr for inhalation (Anoro Ellipta) meclizine 12.5 mg tablet 12.5 mg PO Q8H PRN severe 05/02/22 08/30/22 Rx dizziness/vertigo #10 tabs nitroglycerin 0.4 mg sublingual 0.4 mg sublingual UD PRN chest 05/02/22 08/30/22 Rx tablet (Nitrostat) pain #1 btl carvedilol 3.125 mg tablet 3.125 mg PO BID 06/14/22 08/30/22 History gabapentin 100 mg capsule 200 mg PO HS 06/14/22 08/30/22 History levothyroxine 25 mcg tablet 25 mcg PO DAILY #90 tabs 06/17/22 08/30/22 Rx aspirin 81 mg tablet,delayed 81 mg PO DAILY 07/06/22 08/30/22 History release lisinopril 10 mg tablet 10 mg PO DAILY #90 tabs 07/27/22 08/30/22 Rx diclofenac sodium 1 % topical gel See Rx Instructions .Route 07/28/22 08/30/22 Rx .COMPLEX #300 grams atorvastatin 20 mg tablet 20 mg PO DAILY 08/30/22 08/30/22 History Inpatient Medication List Amoxicillin (Amoxicillin 250 Mg Cap) 250 mg PO BID [facility]; Protocol Stop: 09/05/22 20:59 Last Admin: 09/01/22 09:00 Dose: 250 mg Documented By: Admin: 08/31/22 22:22 Dose: 250 mg Documented By: HIMANSHU Aspirin (Aspirin 81 Mg Ectab) 81 mg PO DAILY [facility] Stop: 09/30/22 08:59 Last Admin: 09/01/22 09:00 Dose: 81 mg Documented By: Admin: 08/31/22 09:02 Dose: 81 mg Documented By: ELIJAH Atorvastatin Calcium (Atorvastatin 20 Mg Tab) 20 mg PO DAILY [facility] Stop: 09/30/22 08:59 Last Admin: 09/01/22 09:00 Dose: 20 mg Documented By: Admin: 08/31/22 09:02 Dose: 20 mg Documented By: ELIJAH Calcium Carbonate (Calcium Carbonate 1250mg Tab) 1,250 mg PO DAILY [facility] Stop: 09/30/22 08:59 Last Admin: 09/01/22 09:00 Dose: 1,250 mg Documented By: Admin: 08/31/22 09:03 Dose: 1,250 mg Documented By: ELIJAH Carvedilol (Carvedilol 3.125 Mg Tab) 3.125 mg PO BID [facility] Stop: 09/29/22 20:59 Last Admin: 08/31/22 22:17 Dose: 3.125 mg Documented By: Admin: 08/31/22 09:40 Dose: Not Given Documented By: Admin: 08/30/22 21:49 Dose: 3.125 mg Documented By: THELMA Diclofenac Sodium (Diclofenac Sod 1% Gel 100 Gm Tube) 2 gm EXT QID PRN; Protocol PRN Reason: LEFT KNEE PAIN Stop: 09/29/22 16:59 Last Admin: 09/01/22 09:01 Dose: 2 gm Documented By: Admin: 08/31/22 22:23 Dose: 2 gm Documented By: Admin: 08/31/22 09:05 Dose: 2 gm Documented By: Admin: 08/30/22 22:32 Dose: 2 gm Documented By: THELMA Fluocinonide (Fluocinonide 0.05% Cr 15 Gm Tube) 1 appln EXT DAILY GARO Stop: 09/30/22 08:59 Last Admin: 09/01/22 09:01 Dose: Not Given Documented By: Admin: 08/31/22 09:04 Dose: 1 appln Documented By: ELIJAH Fluticasone Propionate (Fluticasone Propionate Na Spr 16 Gm Btl) 2 sprays NA DAILY GARO Stop: 09/30/22 08:59 Last Admin: 09/01/22 09:01 Dose: 2 sprays Documented By: Admin: 08/31/22 09:03 Dose: 2 sprays Documented By: ELIJAH Gabapentin (Gabapentin 100 Mg Cap) 200 mg PO HS [facility] Stop: 09/29/22 20:59 Last Admin: 08/31/22 22:16 Dose: 200 mg Documented By: Admin: 08/30/22 21:48 Dose: 200 mg Documented By: THELMA Lactobacillus Acidophilus (Advanced Probiotic 1250 Mg Capsule) 2 cap PO DAILY GARO Stop: 09/30/22 08:59 Last Admin: 09/01/22 09:00 Dose: 2 cap Documented By: Admin: 08/31/22 09:02 Dose: 2 cap Documented By: ELIJAH Levothyroxine Sodium (Levothyroxine Sodium 25 Mcg Tablet) 37.5 mcg PO DAILYBB [facility] Stop: 10/01/22 06:29 Last Admin: 09/01/22 07:19 Dose: Not Given Documented By: SUNNI Lisinopril (Lisinopril 10 Mg Tab) 10 mg PO DAILY GARO Stop: 09/30/22 08:59 Last Admin: 09/01/22 09:00 Dose: 10 mg Documented By: Admin: 08/31/22 09:02 Dose: 10 mg Documented By: ELIJAH Magnesium Oxide (Magnesium Oxide 400 Mg Tab) 400 mg PO DAILY GARO Stop: 09/30/22 08:59 Last Admin: 09/01/22 09:00 Dose: 400 mg Documented By: Admin: 08/31/22 09:03 Dose: 400 mg Documented By: ELIJAH Multivitamins (Multivitamin Tab) 1 tab PO BID GARO Stop: 09/29/22 20:59 Last Admin: 09/01/22 09:00 Dose: 1 tab Documented By: Admin: 08/31/22 22:16 Dose: Not Given Documented By: Admin: 08/31/22 09:03 Dose: 1 tab Documented By: Admin: 08/30/22 21:50 Dose: 1 tab Documented By: THELMA Umeclidinium/Vilanterol (Umeclidinium/Vilanterol 62.5/25mcg 7 Puffs/Inhaler) 1 puffs INH DAILY GARO Stop: 09/30/22 08:59 Last Admin: 09/01/22 09:01 Dose: 1 puffs Documented By: Admin: 08/31/22 09:05 Dose: 1 puffs Documented By: ELIJAH Vitamin D (Cholecalciferol 5,000 Units 125 Mcg Tab) 5,000 units PO DAILY GARO Stop: 09/30/22 08:59 Last Admin: 09/01/22 09:00 Dose: 5,000 units Documented By: Admin: 08/31/22 09:03 Dose: 5,000 units Documented By: ELIJAH Discontinued Medications Lactated Ringer's (Lr) 1,000 mls @ 80 mls/hr IV .[id number] GARO Stop: 08/31/22 03:44 Last Infusion: 08/31/22 05:37 Dose: 0 mls/hr Documented By: Admin: 08/30/22 16:38 Dose: 80 mls/hr Documented By: [id number] Levothyroxine Sodium (Levothyroxine Sodium 25 Mcg Tablet) 25 mcg PO DAILYBB GARO Stop: 09/30/22 06:29 Last Admin: 09/01/22 04:34 Dose: 25 mcg Documented By: Admin: 08/31/22 06:26 Dose: 25 mcg Documented By: THELMA Description This is a 21 electrode EEG with a single channel dedicated to limited EKG. The electrodes were placed in accordance with the International 10-20 system. Interpretation The predominant background activity consists of a somewhat irregular 10 Hz activity, of up to 30 mV in amplitude,seen symmetrically distributed over the posterior head regions bilaterally. This activity attenuates nicely with eye- opening and other alerting procedures. Photic stimulation was performed and elicited some driving responses at a few mid flash frequencies, but abnormal responses were seen. Hyperventilation was not performed. A mild amount of muscle tension ( particularly in the frontal head regions bilaterally) and eye blink movement artifact activity contaminated the recording, but did not hinder interpretation to any significant degree. Throughout the waking portion of the recording, no focal abnormalities, abnormal slow activity, or potentially epileptogenic discharges were seen. The patient entered the drowsy state on several occasions with no further activation. In summary, this EEG was normal during wakefulness and drowsiness. No focal abnormalities, potentially epileptogenic discharges, or abnormal slow activity was seen. Clinical Correlation The abscence of potentially epileptogenic activity does not exclude a seizure disorder, since interictally, EEGs can be normal. Clinical correlation is required. [facility] EEG Procedure Codes Indication for Procedure (1) Syncope: Neurology Neurology: 75970 EEG include record awake & drowsy
[2022-09-01] MEDS: GABAPENTIN 100 MG CAP PO SCH (20:35)
--- NOTE | 2022-09-01 20:40 | Hospitalist Progress Note ---
Date of Service September 01, 2022 Assessment & Plan (1) Syncope: Plan: multiple episodes of such in the past and then another episode on day of admission while riding on the van from her [facility] ([employer] to the [employer]. no prodromal symptoms or warning. had loss of urine during the event. loop recorder interrogation - numerous pauses & bradycardia seen on interrogation in July, but interestingly NO pauses/block/bradycardia during the event on 08.30.22. VBI has been suspected in the past given her severe PAD as below (discovered on last admission in April 2022). for completeness sake obtained EEG - no seizure focus seen; doubt seizure as cause of her recurrent syncope. although she did not have anything on loop interrogation during her day of admission syncopal event, it is hard to ignore the previous pauses identified. certainly PAST episodes of syncope could have been triggered by sinus pauses. I spoke with Dr Aguilar from cardiology/EP who will see in consult tomorrow. COREG is on hold at this time due to pauses & bradycardia. (2) Sinus pause: Plan: as seen on loop recorder interrogation this admission numerous pauses - some up to 5 sec in duration; many occur at night (sleep apnea?) but many are present during the day as well I have consulted Dr Aguilar for his opinion - need for pacemaker? defer any Rx to Dr Aguilar cont to hold coreg cont telemetry (3) Carotid stenosis, right: Plan: 70% narrowing of the right common carotid artery and its bifurcation. Evaluated by vascular surgery for her stenoses on last admission and was not recommended for surgical intervention Continue aspirin, statin. Patient recommended to switch to Plavix at one point by cardiology, however has been hesitant due to easy bruising. (4) Vertebral artery stenosis: Plan: Seen by neurology and vascular surgery for this in the past. VBI as the cause of her syncope was entertained. Avoidance of hypotension advised. Can't rule out that VBI continues to be culprit for her events. See above. (5) Subclavian artery stenosis, right: Plan: Per vascular surgery in April no intervention or treatments required. Cont asa. Cont statin. (6) Elevated troponin: Plan: Likely myocardial demand ischemia in setting of #1. No evidence of ACS. (7) HFrEF (heart failure with reduced ejection fraction): Plan: EF 40-45%, mild global hypokinesis, proximal septal wall thickening, moderate MR on prior echo earlier in 2021. Repeat echo this admission -- EF now mildly better - 45-50%. Appears compensated again today. Until seen by cardiology - and given her pauses & bradycardia on loop recorder interrogation - hold coreg. (8) COPD (chronic obstructive pulmonary disease): Plan: Continue home inhalers. No flare at this time (9) Chronic kidney disease, stage IV (severe): Plan: baseline CrCl upper 20s bmp am for stability (10) UTI (urinary tract infection): Plan: GPC on urine cx started amox renally dosed follow cx to completion (11) Anemia: Plan: repeat b12/folate this admission wnl (12) Hypothyroidism: Plan: TSH minimally elevated this admission was started on synthroid earlier this year reasonable to increase synthroid dose to 37.5mcg daily will need repeat TSH in 6 weeks as outpatient Plan obtain PT eval to ensure safe to d/c back to [place] once medically stable left message for pt's son 08/31/22 change observation status to full admission status Admission and Anticipated Discharge Date Admission Date: September 01, 2022 Subjective patient anxious to leave hospital tele overnight - no pauses or AV block or other dysrhythmia mild bradycardia to the 50s at times denies any recurrent syncope or near-syncope feels steady on her feet we discussed her loop recorder interrogation and that it showed numerous pauses (although did not have such during recent syncopal event) Review of Systems Review of Systems: gen - eating fair, good energy today cv - no cp pulm - no dyspnea on exertion GI - no abd pain, nausea or emesis Physical Exam Physical Exam: gen - NAD, sitting in chair, looks good neck - no JVD heart - RRR, s1 s2, 1-2/6 systolic murmur LLSB lungs - CTA b/l abd - soft NT ND BS+ ext - trace edema b/l, pulses 2+ b/l skin - varicose veins on shins psych - a/o x 3 Results & Data Results & Data ([facility]) Vital Signs (Past 12 Hours) Vital Signs Temp Pulse Pulse Resp BP Pulse Ox O2 Del Method 09/01/22 19:20 36.5 C 57 L 18 169/72 H 97 Room Air 09/01/22 19:26 Room Air 09/01/22 15:19 68 09/01/22 15:09 36.7 C 64 19 145/68 H 94 Room Air 09/01/22 11:44 36.6 C 54 L 19 147/65 H 94 Room Air 09/01/22 11:00 57 L 09/01/22 11:00 Room Air Laboratory Results Laboratory Results - last 24 hr 09/01/22 09/01/22 09/01/22 05:42 05:42 05:42 Sodium 141 Potassium 4.2 Chloride 107 Carbon Dioxide 28 Anion Gap 6 BUN 33 H Creatinine 1.18 1.16 Est Cr Clr Drug Dosing 31.6 32.1 Est GFR ( Amer) 47.7 48.7 Est GFR (Non-Af Amer) 41.1 42.0 BUN/Creatinine Ratio 28.4 H Glucose 81 Calcium 8.7 Vitamin B12 Folate > 22.30 09/01/22 05:42 Sodium Potassium Chloride Carbon Dioxide Anion Gap BUN Creatinine Est Cr Clr Drug Dosing Est GFR ( Amer) Est GFR (Non-Af Amer) BUN/Creatinine Ratio Glucose Calcium Vitamin B12 566 Folate PG Care Time/CCT Total # of Minutes Spent Total Time Spent with Patient: Total time spent is greater than 50% in coordination of care (as documented) at patient's floor/unit and/or counseling patient: Coding Level of Care Code 83092 Subseq Hosp Care Lvl 2 Diagnoses Syncope R55 Sinus pause I45.5 Carotid stenosis, right I65.21 Vertebral artery stenosis I65.09 Subclavian artery stenosis, right I77.1 Elevated troponin R77.8 HFrEF (heart failure with reduced ejection fraction) I50.20 COPD (chronic obstructive pulmonary disease) J44.9 Chronic kidney disease, stage IV (severe) N18.4 UTI (urinary tract infection) N39.0 Anemia D64.9 Hypothyroidism E03.9
[2022-09-02] MEDS: DICLOFENAC SOD 1% GEL 100 GM TUBE EXT PRN (06:09)
[2022-09-02] MEDS: LEVOTHYROXINE SODIUM 25 MCG TABLET PO SCH (06:09)
[2022-09-02 08:43] LABS: Creatinine Clr Calc Pharmacy 29.9 ml/min; Est GFR (African American) 45.4 ml/min; Est GFR (Non-African American) 39.1 ml/min
[2022-09-02] MEDS: MULTIVITAMIN TAB PO SCH (08:47)
[2022-09-02] MEDS: lisinopril 10 MG TAB PO SCH (08:48)
[2022-09-02] MEDS: AMOXICILLIN 250 MG CAP PO SCH (08:48)
[2022-09-02] MEDS: ASPIRIN 81 MG ECTAB PO SCH (08:49)
[2022-09-02] MEDS: MAGNESIUM OXIDE 400 MG TAB PO SCH (08:49)
[2022-09-02] MEDS: ADVANCED PROBIOTIC 1250 MG CAPSULE PO SCH (08:49)
[2022-09-02] MEDS: CALCIUM CARBONATE 1250MG TAB PO SCH (08:49)
[2022-09-02] MEDS: ATORVASTATIN 20 MG TAB PO SCH (08:50)
[2022-09-02] MEDS: FLUOCINONIDE 0.05% CR 15 GM TUBE EXT SCH (08:50)
[2022-09-02] MEDS: CHOLECALCIFEROL 5,000 UNITS 125 MCG TAB PO SCH (08:50)
[2022-09-02] MEDS: FLUTICASONE PROPIONATE NA SPR 16 GM BTL SCH (08:51)
[2022-09-02] MEDS: UMECLIDINIUM/VILANTEROL 62.5/25MCG 7 PUFFS/INHALER INH SCH (08:51)
--- NOTE | 2022-09-02 12:05 | Cardiology Consultation ---
Date of Consultation September 02, 2022 Assessment & Plan (1) Syncope: (2) Elevated troponin: (3) Cardiomyopathy: (4) Mitral regurgitation: Plan 1. Syncope: Unclear etiology. Very frustrating for the patient as she has had symptoms of this nature for several years without a definitive diagnosis or improvement in her symptoms. The episodes themselves are quite random in nature. More recently they always seem to occur while she is sitting. The did not appear to involve any change in position. While she is known to have vertebral basilar disease, she was not active or using her upper extremities when this occurred. Not likely to be a steal phenomenon. Curiously, she was felt to have no pulse when she was initially evaluated by EMS. There were no episodes of significant bradycardia recorded through her implanted device. There were no pauses either. If she truly had no pulse and no known bradycardia, this would represent a form of PE a. neurologic workup to date has also been unremarkable. 1 plausible explanation would simply be a transient drop in blood pressure I see a vasodepressor effect. Previously she had more classic symptoms of high vagal tone, more recently she has had no prodrome or other symptoms associated with the episodes. She does monitor her blood pressure at home and reports normal numbers. She has not reported any hypotension at home. She has stopped driving as a result of these episodes. No recent injuries associated with these episodes. In general, events her fairly infrequent. I think 1 thing that is clear is that the episodes themselves do not involve significant pauses or bradycardia. No current indication for perma nent pacemaker. 2. Elevated troponin: In line with other elevations during prior admissions. She did not report symptoms of ischemia leading up to the event or afterwards. Possibly due to transient hypotension which may precipitate her loss of consciousness. I do not believe this represents an acute coronary syndrome. 3. Cardiomyopathy: She has a long history of mildly reduced LV systolic function without associated symptoms. Currently on lisinopril and low-dose carvedilol. Well compensated. Unlikely to be ischemic given the absence is significant wall motion abnormalities or symptoms of angina and coronary insufficiency. 4. Mitral regurgitation: Mild. This can be followed over time 5. hypertension: Her antihypertensive regimen has been changed fairly frequently over the past year. This was due to concerns of bradycardia and her recurrent syncopal episodes. She tends to have slightly elevated blood pressures. I don't think she requires a specific change to her antihypertensive regimen currently. History of Present Illness Reason for Consultation: syncope Requesting Physician: Areli Attending Physician: Lyle Singleton History of Present Illness the patient is an 79-year-old woman with a long history intermittent syncope. 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 Due to recurrent episodes of syncope of unknown etiology she had previously undergone implantation a patient activated loop recorder in April of this year. Yesterda y the patient reportedly had another episode of unresponsiveness. She states she was in her usual state of health when she was riding to an appointment. Apparently she lost consciousness, because she does not remember a portion of the trip but did regain consciousness when she was being evaluated by EMS and transported to the hospital and ambulance. When she was awake she appeared to be somewhat disoriented by report, but quickly understood the circumstances and by the time she presented to the emergency room was apparently feeling well. She states that this episode was very similar to other episodes she has had in the past. Several years ago when she began to have syncope she had a prodrome that consisted significant nausea, occasional vomiting and diaphoresis. More recently however she has not had any prodrome associated with her episodes. She believes the last episode of this character occurred in May of this year subsequent to her loop recorder implant. She did not report any symptoms of gastrointestinal disturbance or diaphoresis with this episode yesterday. She was seated at the time. She denies dizziness or lightheadedness. No sense of palpitation. Generally speaking she is quite active. She lives independently in a [facility]. She is ambulatory with a cane. She states she does have some disequilibrium when she bends over or gets up quickly. She has sustained a fall recently due to turning quite quickly. Minor injury to her right knee was experienced. No loss of consciousness with that episode. Currently feeling well. She has been ambulatory to the bathroom back today. No dizziness or lightheadedness. Allergies Allergy/AdvReac Type Severity Reaction Status Date / Time latex Allergy Intermediate SEVERE Verified 07/27/22 13:24 ITCHING cephalexin Allergy Mild RASH Verified 07/27/22 13:24 Home Medications Medication Instructions Recorded Confirmed Type cholecalciferol (vitamin D3) 125 125 mcg PO DAILY 10/02/19 08/30/22 History mcg (5,000 unit) tablet nystatin 100,000 unit/gram topical 1 applic topical DAILY PRN fungal 12/23/20 08/30/22 History cream fluocinonide 0.05 % topical cream 1 applic topical DAILY 01/19/21 08/30/22 History triamcinolone acetonide 0.1 % 1 applic topical DIRECTED PRN 01/19/21 08/30/22 History topical cream Skin Irritation albuterol sulfate 90 mcg/actuation 2 puff inhalation Q4H PRN 04/10/21 08/30/22 History aerosol inhaler Shortness Of Breath #1 g vitamins A,C,L-epbn-jdkyar 14,320 1 cap PO BID 05/12/21 08/30/22 History unit-226 mg-200 unit capsule (PreserVision AREDS) calcium carbonate 600 mg calcium 1,200 mg PO DAILY 06/16/21 08/30/22 History (1,500 mg) tablet (Calcium) lactobacillus combination no.4 3 6,000 mmu cells PO DAILY 06/16/21 08/30/22 History billion cell capsule (Probiotic) magnesium 250 mg tablet 250 mg PO DAILY #30 tabs 10/09/21 08/30/22 Rx fluticasone propionate 50 1 - 2 spray intranasal DAILY #18.2 02/05/22 08/30/22 Rx mcg/actuation nasal mL spray,suspension umeclidinium 62.5 mcg-vilanterol 1 ea inhalation DAILY #60 ea 03/22/22 08/30/22 Rx 25 mcg/actuation powdr for inhalation (Anoro Ellipta) meclizine 12.5 mg tablet 12.5 mg PO Q8H PRN severe 05/02/22 08/30/22 Rx dizziness/vertigo #10 tabs nitroglycerin 0.4 mg sublingual 0.4 mg sublingual UD PRN chest 05/02/22 08/30/22 Rx tablet (Nitrostat) pain #1 btl carvedilol 3.125 mg tablet 3.125 mg PO BID 06/14/22 08/30/22 History gabapentin 100 mg capsule 200 mg PO HS 06/14/22 08/30/22 History levothyroxine 25 mcg tablet 25 mcg PO DAILY #90 tabs 06/17/22 08/30/22 Rx aspirin 81 mg tablet,delayed 81 mg PO DAILY 07/06/22 08/30/22 History release lisinopril 10 mg tablet 10 mg PO DAILY #90 tabs 07/27/22 08/30/22 Rx diclofenac sodium 1 % topical gel See Rx Instructions .Route 07/28/22 08/30/22 Rx .COMPLEX #300 grams atorvastatin 20 mg tablet 20 mg PO DAILY 08/30/22 08/30/22 History Patient History Medical History (Updated 09/02/22 @ 11:58 by Adam Aguilar MD) Abnormal ECG Acute chest wall pain Acute severe vertigo ARF (acute renal failure) Arthritis, multiple joint involvement Balance problems Bradycardia Carotid stenosis, right Chest pain at rest Chronic cerebral ischemia CKD (chronic kidney disease), stage III COPD (chronic obstructive pulmonary disease) COVID-19 09/2021 - required hospitalization Elevated troponin Episodic lightheadedness HFrEF (heart failure with reduced ejection fraction) EF 45-50% - 2020 echo HTN (hypertension) Hypercholesterolemia Hypomagnesemia Impaired fasting glucose LBBB (left bundle branch block) Nocturia Osteoporosis Pasteurella infection with bacteremia, 2nd to cat scratch and RUE cellulitis - 06/16 Right arm cellulitis Secondary hypothyroidism Subclavian artery stenosis, right Syncope and collapse (05/15/14) UTI (urinary tract infection) recurrent Vertebral artery stenosis Vertebrobasilar insufficiency Surgical History H/O: hysterectomy History of breast biopsy History of bunionectomy History of carpal tunnel surgery History of inguinal hernia repair History of myringotomy History of rotator cuff surgery Jul 2011--Dr. Whitten Hx of adenoidectomy Hx of tonsillectomy S/P appendectomy S/P cholecystectomy Family History Mother , in her 80s of multiple CVAs Alzheimer disease Stroke Father , age 78 of COPD complications Emphysema, unspecified COPD (chronic obstructive pulmonary disease) Grandfather (Maternal) Colorectal cancer Uncle Prostate cancer Denies family history of Ovarian cancer Diabetes Coronary heart disease Heart disease Myocardial infarction Breast cancer Lung cancer Social History Smoking Status: Former smoker Tobacco Type: Cigarettes Age Started Using Tobacco: 23; Age Quit Using Tobacco: 61; Cigarettes Per Day: 1 ppd; Second Hand Exposure: No; Hx Alcohol Use: No Hx Substance Use: No Preferred Language: Swedish Communication Ability: Effective Visual Impairment: Limited Hearing Ability: Use of Hearing Aid Accounts Adjustable Clerk Required: No Beliefs That Will Affect Care: None marital status: Current Living Situation: Personal Care Facility Current Living Situation Comment: [facility] current occupational 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 No gastrointestinal symptoms. Eating and drinking normally. No recent constitutional symptoms such as fevers or chills or upper respiratory illness. Physical Exam Physical Exam: She is alert and oriented x3. Mood affect appear normal. She answered all questions appropriately. HEENT: Sclerae are anicteric. Pupils are equal and reactive to light and accommodation. Extraocular movements were intact. Neuro: Cranial nerves intact Neck: Examination of the submandibular region did not reveal any significant lymphadenopathy. Carotids are palpable bilaterally. Left carotid bruit. There was no evidence of jugular venous distention. The thyroid was not enlarged. Lungs: Lungs are clear to auscultation bilaterally. There are no rales wheezes or rhonchi. She has normal respiratory effort without use of accessory muscles. There is normal pulmonary excursion. Cardiac: The rhythm was regular. S1 and S2 were normal. There are no murmurs on examination. The PMI was not markedly displaced on palpation. Abdomen: The abdomen was soft and nontender. Extremities: Patient has bilateral radial pulses that are equal in intensity. There is no evidence cyanosis or clubbing. Mild bilateral ankle edema Skin: There are no rashes noted on examination today. some ecchymosis Results & Data ([facility]) Vital Signs (Past 12 Hours) Vital Signs Temp Pulse Pulse Resp BP Pulse Ox O2 Del Method 09/02/22 11:41 36.7 C 66 18 158/62 H 92 Room Air 09/02/22 08:00 Room Air 09/02/22 07:37 68 09/02/22 07:33 36.5 C 61 18 145/72 H 92 Room Air 09/02/22 03:26 36.7 C 59 L 18 147/54 H 93 Room Air Laboratory Results Abnormal Lab Results 09/02/22 06:41 Creatinine 1.23 H Est Cr Clr Drug Dosing 29.9 Est GFR ( Amer) 45.4 Est GFR (Non-Af Amer) 39.1 Diagnostic Findings echocardiogram performed 08/30/2022: mildly reduced LV systolic function with ejection fraction 45-50%. mild to moderate mitral regurgitation. Mild LVH. No regional wall motion abnormalities. I performed a complete device interrogation of her patient implanted loop recorder. The device did log many episodes as "pauses". All of the episodes with available EGMs demonstrated undersensing of the device without true pauses. 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 No discrete episodes associated with her syncope. ECG Additional Comments: EKG demonstrates normal sinus rhythm with sinus arrhythmia and nonspecific interventricular conduction delay. Unchanged from prior PG Care Time/CCT Total # of Minutes Spent Total Time Spent with Patient: Total time spent is greater than 50% in coordination of care (as documented) at patient's floor/unit and/or counseling patient: Coding Level of Care Code 50368 Initial Inpt Care Lvl 3 Diagnoses Syncope R55 Elevated troponin R77.8 Cardiomyopathy I42.9 Mitral regurgitation I34.0
--- NOTE | 2022-09-02 13:32 | Discharge Summary ---
Date of Service date of admission - August 30, 2022 date of discharge - September 02, 2022 Admission HPI Per Admitting Provider Gayle Perkins is an 87-year-old female with past medical history significant for cerebrovascular disease, vertebrobasilar insufficiency, recurrent syncopal even ts, hypertension, CKD3, hypothyroidism, COPD, and chronic anemia who is presenting today after syncopal episode earlier today. 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 Patient was seated in the transport van, the last thing she remembers is sitting in front of the event talking with the school bus driver/custodian somewhere near [place], then woke up in front of her audiologists building, with an unknown amount of time loss. She been in her normal state of health over the past few days and had absolutely no warning signs prior to this happening to her today. She has been having these syncopal/"blackout "episodes for years now, and has been followed by cardiology without any established diagnosis. They often happen when she is in the seated position. In the past she had warning signs of nausea, vomiting, lightheadedness prior to the events but most recently they have been occurring without any prodrome. Her last episode was in May. He has been evaluated by cardiology and neurology, who feel it may be related to vertebrobasilar insufficiency, as she does have significant stenosis in the right vertebral, right ICA, and right subclavian artery. She remains on aspirin 81 mg daily and has been resistant to adding on Plavix as she bruises easily on aspirin already. In route, EMS initially reported no radial pulse, however per [facility] report, she had been AOx3, 95% on 2 LNC and in normal sinus rhythm with PACs on the monitor during transport. Upon presentation she is mildly hypertensive, otherwi se vital signs are within normal limits, stable. She is without any lightheadedness, dizziness, headache, vision change, weakness, numbness, or tingling. She has been able to ambulate to and from the bathroom without difficulty. Labs significant for BUN 34 creatinine 1.40, both at/near baseline. Troponin 69.3. TSH 6.9, free T4 pending. CXR: Faint bibasilar airspace opacities which may represent atelectasis, pneumonia, and/or aspiration. Stable cardiomegaly. Principal Diagnosis Syncope, likely due to vertobasilar artery insufficiency Discharge Exam gen - NAD, sitting in chair, looks good, pleasant neck - no JVD heart - RRR, s1 s2, 1-2/6 systolic murmur LLSB lungs - CTA b/l abd - soft NT ND BS+ ext - trace edema b/l, pulses 2+ b/l skin - varicose veins on shins psych - a/o x 3 Discharge Data Allergies Allergy/AdvReac Type Severity Reaction Status Date / Time latex Allergy Intermediate SEVERE Verified 07/27/22 13:24 ITCHING cephalexin Allergy Mild RASH Verified 07/27/22 13:24 Consultations Cardiology - Adam Aguilar MD PT OT Procedures Performed 1. echocardiogram - EF 45-50%; mild LVH; no regional wall motion abnormalities; moderate tricuspid regurgitation; mild-moderate mitral regurgitation; compared with 04/2022 echo LV function mildly improved 2. EEF - no seizure activity 3. loop recorder interrogation - no arrhythmia, AV block, or pause at time of syncopal event that led to this hospitalization. Loop recorder reported multiple episodes of "pauses" over the last 2 months; however, according to cardiology, these episodes are not true pauses. She does have mild bradycardia episodes typically during hours of sleep. Hospital Course (1) Syncope: multiple episodes of such in the past and then another episode on day of admission while riding on the van from her [facility]) to the finishing and shipping supervisor. no prodromal symptoms or warning. had loss of urine during the event. loop recorder interrogation - NO pauses/block/bradycardia during the event on 08.30.22. for completeness sake obtained EEG - no seizure focus seen; thus doubt seizure as cause of her recurrent syncope. Vertebrobasilar artery insufficiency has been suspected in the past as the potential cause of her syncopal events given her severe PAD as noted below (discovered on last admission in April 2022). She was seen by Dr Adam Aguilar, [facility], who stated that to date no dysrhythmia has been detected at the time of her recurrent events. The patient is understandably frustrated by these events given the chronicity and recurrent nature of them. At this time the best way to avoid such events - if vertebrobasilar insufficiency is the cause - is to avoid hypotension and dehydration. She could potentially try wearing compression stockings to help with venous return and preload. (2) Vertebrobasilar insufficiency: CTA head and neck in April 2022 showed the following -- "Occlusion of the V1 segment right vertebral artery with reconstitution of flow at the distal V2 segment at the level of C1-C2. 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 High-grade stenosis at the origin of the right subclavian artery." She has previously seen both vascular surgery and neurology for the above. At this time there are no specific recommendations other than daily aspirin use and statin therapy. See #1 above. (3) Sinus pause: Initially her loop recorder interrogation appeared to report multiple episodes of sinus pauses. She was seen by Dr Adam Aguilar, [facility]iology, who interpreted the loop interrogation and found that these were in fact NOT pauses. No AV block seen at any time either. Thus, it is safe to continue coreg at low-dose as previous. (4) Carotid stenosis, right: 70% narrowing of the right common carotid artery and its bifurcation. Evaluated by vascular surgery for her stenoses on last admission (04/2022) and surgical intervention was not advised. Continue aspirin, statin. Patient recommended to switch to Plavix at one point by cardiology, however has been hesitant to do so due to easy bruising. (5) Vertebral artery stenosis: Seen by neurology and vascular surgery for this in the past. See #2 above. (6) Subclavian artery stenosis, right: Per vascular surgery in April 2022 no intervention or treatments required. Cont aspirin. Cont statin. (7) Elevated troponin: Likely myocardial demand ischemia in setting of #1. No evidence of ACS. Peak HS troponin was 80. (8) HFrEF (heart failure with reduced ejection fraction): EF 40-45%, mild global hypokinesis, proximal septal wall thickening, moderate MR on prior echo earlier in 2021. Repeat echo this admission -- EF now mildly better - 45-50%. Was compensated throughout her stay. Cont coreg 3.125mg BID. Cont lisinopril 10mg daily. (9) COPD (chronic obstructive pulmonary disease): Continue home inhalers. No flare at this time (10) Chronic kidney disease, stage IV (severe): baseline CrCl upper 20s baseline creatinine about 1.2/1.3 discharge creatinine was 1.2 (11) UTI (urinary tract infection): initially gram positive cocci were reported on urine cx amoxicillin was initiated final culture report reversed the initial report -- there was no pathogen isolated [id number], since the u/a was suspicious for UTI, a short course of amoxicillin was completed (12) Anemia: hemoglobin was 12 while here B12/folate were wnl during this stay previous iron studies earlier in 2021 were wnl (13) Hypothyroidism: TSH minimally elevated this admission was started on synthroid earlier this year reasonable to increase synthroid dose to 37.5mcg daily will need repeat TSH in 6 weeks as outpatient Plan PT/OT cleared patient to return to [facility] Total Time Total Time Spent Total Time Spent (In Minutes): 45 Discharge Plan Discharge Items Patient Disposition: Personal Halfway Reason For Visit: SYNCOPE Discharge Diagnosis: Syncope (passing out spell) Urinary tract infection Activity: Resume your previous activity Non-emergency contact: Primary Care Provider and Agronomy Technician Call non-emergency contact if: you have any medication questions and your symptoms worsen Follow-up/Referrals: Best Sow MD [Primary Care Provider] - 09/13/22 11:00 am Adam Aguilar MD [Physician] - (please see Dr Aguilar for follow-up of recurrent episodes of passing out; his office will be arranging a follow-up appointment for you in the near-future) Diet: Heart Healthy Addtl Attending Provider Instructions: Mrs Perkins, Ralph were admitted to the hospital due to having another episode of passing out, also known as "syncope." You have had numerous episodes of passing out over the last few years. Extensive testing has been performed during prior hospital stays and this hospital stay. Earlier this fall you had a "loop recorder" device placed in the chest to monitor your heart rhythm and to try & determine if an abnormal rhythm was causing your spells. We downloaded your loop recorder and initially there was concern that you were having episodes of "pauses" and slow heart rates. Dr Tien Aguilar from [facility] saw you in consult and looked at the reports from the loop device. Fortunately there have been NO pauses, slow heart rates, or abnormal heart rhythms recently or in the past few months. Thus, a heart problem/electrical problem has not been identified to date that would explain your passing out spells. In April during your stay here we found multiple blocked arteries in the neck (back of the neck and front of the neck) along with the right arm. There has been concern that you have a condition called "vertebrobasilar insufficiency." Please see the handout I printed from the [facility]. Vertebrobasilar insufficiency - VBI for short - leads to poor blood flow to the back of the brain which can cause a number of things including passing out. Previously you saw the neurologist during the April hospital stay and they, too, felt that VBI could be contributing to your passing out spells. There is not a good treatment for VBI if this is the culprit problem. Avoiding dehydration, low blood pressure, etc can sometimes help. You could try wearing compression stockings/support hose this winter. You can purchase these [id number] at [facility]. They may or may not help the situation, however, but certainly worth trying. We did perform an EEG to rule out seizures. There is a rare form of seizures that leads to passing out spells. The EEG was normal; we have low suspicion of seizures. Your echocardiogram / heart ultrasound actually showed the heart function was modestly better than the last time it was checked this past summer. Finally, we saw 2 additional issues - 1. probable urinary infection - take amoxicillin 250mg twice daily x 3 more days starting tonight; script sent to [facility] for you. 2. underactive thyroid gland (hypothyroidism) - your lab work suggests you need a modest increase in your thyroid medication. Please INCREASE to 37.5mg (1.5 tablets) of levothyroxine once daily. I sent a new script to [facility] for you. You will need your thyroid level repeated in about [address] Sow. Follow-up - see separate section Return to [facility] if - * you have additional passing out spells * you have chest pain * you have shortness of breath * you have any concerns for a stroke (difficulty speaking, swallowing, moving the arms/legs, etc) * any other concerns It was our pleasure to care for you! Dr Singleton Pending Studies at Discharge: No Stand-Alone Forms: My [facility] [employer], Smoking Cessation Skilled Items Patient informed of condition?: Yes DNR: No Discharge Level of Care: Other Communicable Disease: No Discharge Prognosis: Stable Lines: None Urinary Catheter: No Medications and DC Order Prescriptions: Continued fluocinonide 0.05 % cream 1 applic topical DAILY Label Comments: Apply on the head for Psoriasis triamcinolone acetonide 0.1 % cream 1 applic topical DIRECTED PRN (Reason: Skin Irritation) Label Comments: Applied on the back for Psoriasis Rx Instructions: apply to dermatitis on trunk and extremities twice a day until till healed then as needed fluticasone propionate 50 mcg/actuation spray,suspension 1 - 2 spray intranasal DAILY Qty: 18.2 5RF Anoro Ellipta 62.5-25 mcg/actuation blister with device 1 ea inhalation DAILY Qty: 60 5RF diclofenac sodium 1 % gel See Rx Instructions .ROUTE .COMPLEX Qty: 300 1RF Dose Instruction: APPLY TOPICALLY 2G 4 TIMES A DAY NEEDED FOR PAIN Rx Instructions: APPLY TOPICALLY 2G 4 TIMES A DAY NEEDED FOR PAIN cholecalciferol (vitamin D3) 125 mcg (5,000 unit) tablet 125 mcg PO DAILY albuterol sulfate 90 mcg/actuation HFA aerosol inhaler 2 puff inhalation Q4H PRN (Reason: Shortness Of Breath) Qty: 1 calcium carbonate [Calcium 600] 600 mg calcium (1,500 mg) tablet 1,200 mg PO DAILY Probiotic 3 billion cell capsule 6,000 mmu cells PO DAILY Rx Instructions: administer with a meal lisinopril 10 mg tablet 10 mg PO DAILY Qty: 90 3RF nystatin 100,000 unit/gram cream 1 applic topical DAILY PRN (Reason: fungal) PreserVision AREDS [id number] capsule 1 cap PO BID aspirin 81 mg tablet,delayed release (DR/EC) 81 mg PO DAILY Label Comments: magnesium 250 mg tablet 250 mg PO DAILY Qty: 30 0RF Rx Instructions: OTC nitroglycerin [Nitrostat] 0.4 mg Tablet, Sublingual 0.4 mg sublingual UD PRN (Reason: chest pain) Qty: 1 0RF Rx Instructions: max 3 tabs in 15 minutes gabapentin 100 mg capsule 200 mg PO HS Rx Instructions: TAKE 2 CAPSULES BY MOUTH AT BEDTIME carvedilol 3.125 mg tablet 3.125 mg PO BID Rx Instructions: TAKE 1 TABLET BY MOUTH TWICE A DAY atorvastatin 20 mg tablet 20 mg PO DAILY Changed levothyroxine 25 mcg tablet 37.5 mcg PO DAILY Qty: 45 3RF Discharge Orders: Discharge Order (Routine); Ordered 12/08/22 Ordered By: Lyle Singleton Admission Data Admit Date/Time: 09/01/22 19:36 Attending Provider: Lyle Singleton Admit Provider: Christopher Kevin Primary Care Provider: Best Swo Other Providers: Christopher Kevin ; [facility] ; Adam Aguilar Other Interventions: Discharge Summary Assessment (RN) Last Done: 09/02/22 14:13 Coding Level of Care Code D/C DAY MANAGEMENT >30 MINS Diagnoses Syncope R55 Vertebrobasilar insufficiency G45.0 Sinus pause I45.5 Carotid stenosis, right I65.21 Vertebral artery stenosis I65.09 Subclavian artery stenosis, right I77.1 Elevated troponin R77.8 HFrEF (heart failure with reduced ejection fraction) I50.20 COPD (chronic obstructive pulmonary disease) J44.9 Chronic kidney disease, stage IV (severe) N18.4 UTI (urinary tract infection) N39.0 Anemia D64.9 Hypothyroidism E03.9
== END 2022-09-02 15:24 | disposition home or self-care (01) | DRG 69 ==
LOC: EDSEX → ED 11:20 → EDINP 11:20 → SUATTDRO 14:07 → 2N 15:36

== ENCOUNTER 2023-02-15 12:45 | Observation (INO) ==
[2023-02-15] MEDS ORDERED: SODIUM CHLORIDE 0.9% 500 ML IV SCH (13:15)
--- NOTE | 2023-02-15 13:22 | Emergency Department Note ---
Impression & Plan Syncope, DIA (acute kidney injury), Urinary incontinence, Acute dehydration, Elevated troponin ED Provider Note NAME: DMITRY RODRIGUEZ AGE: 87 SEX: F : 1935 ARRIVES VIA: Walk-In INFORMANT: [Patient][family] ED PROVIDER(S): [Aneudy Ríos MD] CHIEF COMPLAINT: Syncope HISTORY OF PRESENT ILLNESS: The patient is an 87-year-old female who presents to the ER with complaints of syncope. The patient had a syncopal spell last week but it was very short- lived. She carries a history of syncope which her doctors think is related to a drop in blood pressure and heart rate. The patient states that this morning, she had a mild headache which resolved spontaneously. She otherwise felt well. She was sitting in the car with family when she began to feel warm and her vision seemed off. She felt like she may pass out. As per her family member, the patient lost consciousness. Her eyes were open, her arms were stiff. She lost urinary continence. She did vomit. The episode lasted quite a bit longer than her typical episodes. When she came back around, she was amnestic of what had happened, she had some slight slurring of her speech. She was brought for evaluation. The patient did notice some urinary frequency last evening. She has taken some Azo. There was no chest pain with this event, no shortness of breath. No heart racing. No arm or leg weakness. PMHx/PSHx: See Below SOCIAL HISTORY: See Below. PHYSICAL EXAM: GENERAL: Patient is in no acute distress. HEENT: No acute trauma, normocephalic atraumatic, mucous membranes moist, no nasal congestion. NECK: No stridor, no adenopathy, no meningismus, trachea is midline. LUNGS: Clear to auscultation bilaterally, no wheeze, no rhonchi, breath sounds equal. HEART: Without murmurs gallops or rubs, regular rate and rhythm. ABDOMEN: Soft, nontender, bowel sounds positive, no peritonitis. EXTREMITIES: No cyanosis or edema, full range of motion of all the joints without pain or difficulty, no signs for acute trauma. NEUROLOGIC: Oriented x 3, no acute motor or sensory deficits, no focal weakness. SKIN: No rash, no jaundice, no diaphoresis. DIFFERENTIAL DIAGNOSIS: Syncope, dysrhythmia, seizure, UTI, dehydration, orthostasis, electrolyte imbalance, CO, among others. EMERGENCY DEPARTMENT COURSE/PROCEDURES: Prior/Outside records reviewed: Previous cardiology note. ECG per my interpretation: Indication was syncope. The ECG shows a normal sinus rhythm with some subtle sinus arrhythmia. The rate was 66. There was a left bundle branch block. There was no ST elevation, no PVCs. The QTc was 463. Compared to an ECG from 30 August 2022, I see no significant change. Continuous Cardiac Monitoring per my interpretation: An order was placed for continuous cardiac monitoring. The monitor shows a rate of 62 with normal sinus rhythm. MEDICAL DECISION MAKING: There is no leukocytosis or concerning anemia. There is a normal platelet count. Creatinine is elevated consistent with some acute kidney injury and potentially dehydration. No electrolyte abnormality in need of emergent correction. ECG showed a normal sinus rhythm, no obvious acute ischemia. Cardiac enzyme testing x2 was slightly elevated but stable, a troponin `elevation has been documented in the past and today's values were less than previous values. Patient appeared to be in a euthyroid state. Prolactin level was not elevated making true seizure less likely. Urinalysis showed potential infection versus contamination. COVID test returned negative. Chest film did not show mediastinal widening, pneumonia or pneumothorax per my review. Brain CT showed no acute bleed or mass effect. On exam, the patient was without any focal neurologic findings, she was not toxic or febrile. The patient received a total of 1 L of IV saline during her stay. I did speak with cardiology, Dr. Long. Given the extended event today, given the spasm of her upper extremities, given her urinary incontinence, given this event occurred while sitting, hospitalization for monitoring was felt warranted. At this point, the cause for the event today is unclear, dysrhythmia is a concern. I spoke with the patient and case management, the on-call hospitalist was consulted. DISPOSITION: Patient's presentation and findings warrant a hospital stay. Past Med/Surg History Medical History Abnormal ECG Acute chest wall pain Acute on chronic systolic heart failure Acute severe vertigo Anemia ARF (acute renal failure) Arthritis, multiple joint involvement Balance problems Bradycardia Cardiomyopathy Carotid stenosis, right Chest pain at rest Chronic cerebral ischemia Chronic kidney disease, stage IV (severe) Chronic kidney disease, stage IV (severe) CKD (chronic kidney disease), stage III COPD (chronic obstructive pulmonary disease) COVID-19 09/2021 - required hospitalization Episodic lightheadedness Gram-negative bacteremia HFrEF (heart failure with reduced ejection fraction) EF 45-50% - 2020 echo HTN (hypertension) Hypercholesterolemia Hypomagnesemia Hypothyroidism Impaired fasting glucose Infection, Pasteurella LBBB (left bundle branch block) Mitral regurgitation Nocturia Osteoporosis Pasteurella infection with bacteremia, 2nd to cat scratch and RUE cellulitis - 06/16 Pseudogout of hand Right arm cellulitis Secondary hypothyroidism Septic arthritis of hand, right Situational anxiety Subclavian artery stenosis, right Syncope (08/2022) Syncope and collapse (05/15/14) UTI (urinary tract infection) recurrent UTI (urinary tract infection) Vertebral artery stenosis Vertebrobasilar insufficiency Surgical History H/O: hysterectomy History of breast biopsy History of bunionectomy History of carpal tunnel surgery History of inguinal hernia repair History of myringotomy History of rotator cuff surgery Hx of adenoidectomy Hx of tonsillectomy S/P appendectomy S/P cholecystectomy Family History Mother Alzheimer disease Stroke Father Emphysema, unspecified COPD (chronic obstructive pulmonary disease) Grandfather (Maternal) Colorectal cancer Uncle Prostate cancer Denies family history of Ovarian cancer Diabetes Coronary heart disease Heart disease Myocardial infarction Breast cancer Lung cancer Social History Smoking Status: Former smoker Tobacco Type: Cigarettes Age Started Using Tobacco: 23; Age Quit Using Tobacco: 61; Cigarettes Per Day: 1 ppd; Second Hand Exposure: No; Do You Dip or Chew Tobacco: No; Hx Alcohol Use: No Hx Substance Use: No Preferred Language: Bengali Communication Ability: Effective Visual Impairment: Limited Hearing Ability: Use of Hearing Aid Watch Inspector Final Movement Required: No Beliefs That Will Affect Care: None marital status: Current Living Situation: Personal Care Facility Current Living Situation Comment: [facility] current occupational 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[employer], 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 How many Children do You have: 2 Feels Safe at Home: Yes Childhood Exposure to Second-Hand Smoke: Yes caffeine: Yes Dental Care, Regularly: No Physical Activity Frequency: Does not Exercise Seatbelt Use: always Sunscreen Use: No Assistive Devices: Cane Allergies Allergies Allergy/AdvReac Type Severity Reaction Status Date / Time latex Allergy Intermediate SEVERE Verified 12/14/22 11:11 ITCHING cephalexin Allergy Mild RASH Verified 12/14/22 11:11 Home Meds Home Medications Medication Instructions Recorded Confirmed cholecalciferol (vitamin D3) 125 125 mcg PO DAILY 10/02/19 12/14/22 mcg (5,000 unit) tablet nystatin 100,000 unit/gram topical 1 applic topical DAILY PRN fungal 12/23/20 12/14/22 cream fluocinonide 0.05 % topical cream 1 applic topical DAILY 01/19/21 12/14/22 triamcinolone acetonide 0.1 % 1 applic topical DIRECTED PRN 01/19/21 12/14/22 topical cream Skin Irritation albuterol sulfate 90 mcg/actuation 2 puff inhalation Q4H PRN 04/10/21 12/14/22 aerosol inhaler Shortness Of Breath #1 g calcium carbonate 600 mg calcium 1,200 mg PO DAILY 06/16/21 12/14/22 (1,500 mg) tablet (Calcium) lactobacillus combination no.4 3 6,000 mmu cells PO DAILY 06/16/21 12/14/22 billion cell capsule (Probiotic) aspirin 81 mg tablet,delayed 81 mg PO DAILY 07/06/22 12/14/22 release atorvastatin 20 mg tablet 20 mg PO DAILY 08/30/22 12/14/22 cranberry fruit concentrate [Azo PO BID 10/14/22 12/14/22 Cranberry] vitamins A,C,L-vivs-hrgnku 4,296 1 cap PO DAILY 12/14/22 12/14/22 mcg-226 mg-90 mg capsule (PreserVision AREDS) Previous Rx's Medication Instructions Recorded magnesium 250 mg tablet 250 mg PO DAILY #30 tabs 10/09/21 fluticasone propionate 50 1 - 2 spray intranasal DAILY #18.2 02/05/22 mcg/actuation nasal mL spray,suspension nitroglycerin 0.4 mg sublingual 0.4 mg sublingual UD PRN chest 05/02/22 tablet (Nitrostat) pain #1 btl diclofenac sodium 1 % topical gel See Rx Instructions .Route 07/28/22 .COMPLEX #300 grams umeclidinium 62.5 mcg-vilanterol 1 ea inhalation DAILY #60 ea 09/28/22 25 mcg/actuation powdr for inhalation (Anoro Ellipta) gabapentin 100 mg capsule 200 mg PO HS #60 caps 10/25/22 levothyroxine 75 mcg capsule 75 mcg PO DAILY #60 caps 01/03/23 lisinopril 10 mg tablet 10 mg PO BID #180 tabs 01/19/23 Results & Data (ED) Vital Signs Vital Signs - 24 hr 02/15/23 12:55 02/15/23 13:11 02/15/23 13:11 Temperature 36.4 C L Temperature Source Oral Pulse Rate - Lying Pulse Rate - Sitting Pulse Rate - Standing Pulse Rate 64 Pulse Rate [Apical] 66 Pulse Rate from SpO2 Sensor Respiratory Rate 20 18 Respiratory Effort / Characteristics Non-Labored Non-Labored Spontaneous Respiratory Depth Normal Normal Blood Pressure - Lying Blood Pressure - Sitting Blood Pressure- Standing Blood Pressure 104/55 L Blood Pressure [Left Arm] 139/61 Blood Pressure Mean 71 Blood Pressure Mean [Left Arm] 87 Pulse Oximetry 93 96 96 Oxygen Delivery Method Room Air Room Air Room Air Sepsis Recent Fever Within 48 Hours No Sepsis New/Unexplained Change in Mental Status N/A Sepsis Action Taken by Nursing No Action Required 02/15/23 13:16 02/15/23 14:11 02/15/23 15:00 Temperature Temperature Source Pulse Rate - Lying Pulse Rate - Sitting Pulse Rate - Standing Pulse Rate 62 75 Pulse Rate [Apical] 62 Pulse Rate from SpO2 Sensor 76 Respiratory Rate 18 15 Respiratory Effort / Characteristics Non-Labored Spontaneous Respiratory Depth Normal Blood Pressure - Lying Blood Pressure - Sitting Blood Pressure- Standing Blood Pressure 187/76 H Blood Pressure [Left Arm] 169/62 H Blood Pressure Mean 113 Blood Pressure Mean [Left Arm] 97 Pulse Oximetry 94 93 Oxygen Delivery Method Room Air Room Air Sepsis Recent Fever Within 48 Hours Sepsis New/Unexplained Change in Mental Status Sepsis Action Taken by Nursing 02/15/23 16:00 02/15/23 17:13 02/15/23 17:30 Temperature Temperature Source Pulse Rate - Lying 68 Pulse Rate - Sitting 70 Pulse Rate - Standing 84 Pulse Rate 79 70 Pulse Rate [Apical] Pulse Rate from SpO2 Sensor 81 69 Respiratory Rate 17 17 Respiratory Effort / Characteristics Respiratory Depth Blood Pressure - Lying 176/74 H Blood Pressure - Sitting 164/85 H Blood Pressure- Standing 180/70 H Blood Pressure 189/79 H 181/80 H Blood Pressure [Left Arm] Blood Pressure Mean 115 113 Blood Pressure Mean [Left Arm] Pulse Oximetry 97 95 Oxygen Delivery Method Room Air Room Air Sepsis Recent Fever Within 48 Hours Sepsis New/Unexplained Change in Mental Status Sepsis Action Taken by [facility] Medications Current Medication List: was personally reviewed by me Laboratory Data Attestation: I reviewed the patient's lab results. 02/15/23 13:02/15/23 13: Lab Results 02/15/23 02/15/23 02/15/23 Range/Units 13:22 13:22 13: WBC 8.35 (4.8-10.8) K/ul RBC 3.72 L (4.20-5.40) M/uL Hgb 12.0 (12.0-16.0) g/dl Hct 37.2 (37.0-47.0) % MCV 100.0 (80.0-100.0) fL MCH 32.3 (25.0-34.0) pg MCHC 32.3 (32.0-36.0) g/dL RDW Std Deviation 47.4 H (36.4-46.3) fL RDW Coeff of Stiven 12.9 (11.5-14.5) % Plt Count 218 (130-400) K/uL MPV 10.1 (9.4-12.4) fL Immature Gran % (Auto) 1.0 % Neut % (Auto) 75.0 % Lymph % (Auto) 13.9 % [place] % (Auto) 7.1 % Eos % (Auto) 2.2 % Baso % (Auto) 0.8 % Neut # (Auto) 6.27 (1.40-6.50) K/uL Lymph # (Auto) 1.16 L (1.2-3.4) K/uL [place] # (Auto) 0.59 (0.11-0.59) K/uL Eos # (Auto) 0.18 (0-0.50) K/uL Baso # (Auto) 0.07 (0-0.2) K/uL Immature Gran # (Auto) 0.08 (0.01-0.20) K/uL Sodium 141 (136-145) mmol/L Potassium 4.6 (3.5-5.1) mmol/L Chloride 104 (98-107) mmol/L Carbon Dioxide 29 (21-32) mmol/L Anion Gap 8 (3-11) BUN 37 H (6-23) mg/dl Creatinine 1.82 H (0.6-1.2) mg/dl Est Cr Clr Drug Dosing Not Reportable Est GFR ( Amer) 28.2 ml/min Est GFR (Non-Af Amer) 24.4 ml/min BUN/Creatinine Ratio 20.3 H (10-20) Glucose 107 H (70-99(Fasting)) mg/dl Calcium 9.5 (8.6-10.3) mg/dl Magnesium 1.9 (1.7-2.4) mg/dl Total Bilirubin 0.4 (0.2-1.0) mg/dl AST 16 (13-39) U/L ALT 10 (7-52) U/L Alkaline Phosphatase 53 (34-104) U/L Troponin I High Sens 36.7 H (0-14) pg/ml Total Protein 6.8 (6.0-8.3) gm/dl Albumin 3.7 (3.4-5.0) gm/dl Globulin 3.1 (2.5-4.0) gm/dl Albumin/Globulin Ratio 1.2 (0.9-2) TSH 2.913 (0.300-4.500) uIu/ml Prolactin ng/ml Urine Color Urine Appearance (Clear) Urine pH (4.5-7.5) Ur Specific [place] (1.000-1.030) Urine Protein (Negative) Urine Glucose (UA) (Negative) Urine Ketones (Negative) Urine Blood (Negative) Urine Nitrite (Negative) Urine Bilirubin (Negative) Urine Urobilinogen (Negative) Ur Leukocyte Esterase (Negative) Urine WBC (Auto) (0-5) /hpf Urine RBC (Auto) (0-4) /hpf U Hyaline Cast (Auto) (0-5) /lpf U Epithel Cells (Auto) (0-5) /lpf Urine Bacteria (Auto) (Negative) SARS-CoV-2, RNA, NAAT (NEGATIVE) 02/15/23 02/15/23 02/15/23 Range/Units 13:22 13:22 15:23 WBC (4.8-10.8) K/ul RBC (4.20-5.40) M/uL Hgb (12.0-16.0) g/dl Hct (37.0-47.0) % MCV (80.0-100.0) fL MCH (25.0-34.0) pg MCHC (32.0-36.0) g/dL RDW Std Deviation (36.4-46.3) fL RDW Coeff of Stiven (11.5-14.5) % Plt Count (130-400) K/uL MPV (9.4-12.4) fL Immature Gran % (Auto) % Neut % (Auto) % Lymph % (Auto) % [place] % (Auto) % Eos % (Auto) % Baso % (Auto) % Neut # (Auto) (1.40-6.50) K/uL Lymph # (Auto) (1.2-3.4) K/uL [place] # (Auto) (0.11-0.59) K/uL Eos # (Auto) (0-0.50) K/uL Baso # (Auto) (0-0.2) K/uL Immature Gran # (Auto) (0.01-0.20) K/uL Sodium (136-145) mmol/L Potassium (3.5-5.1) mmol/L Chloride (98-107) mmol/L Carbon Dioxide (21-32) mmol/L Anion Gap (3-11) BUN (6-23) mg/dl Creatinine (0.6-1.2) mg/dl Est Cr Clr Drug Dosing Est GFR ( Amer) ml/min Est GFR (Non-Af Amer) ml/min BUN/Creatinine Ratio (10-20) Glucose (70-99(Fasting)) mg/dl Calcium (8.6-10.3) mg/dl Magnesium (1.7-2.4) mg/dl Total Bilirubin (0.2-1.0) mg/dl AST (13-39) U/L ALT (7-52) U/L Alkaline Phosphatase (34-104) U/L Troponin I High Sens 32.7 H (0-14) pg/ml Total Protein (6.0-8.3) gm/dl Albumin (3.4-5.0) gm/dl Globulin (2.5-4.0) gm/dl Albumin/Globulin Ratio (0.9-2) TSH (0.300-4.500) uIu/ml Prolactin 18.22 ng/ml Urine Color Urine Appearance (Clear) Urine pH (4.5-7.5) Ur Specific [place] (1.000-1.030) Urine Protein (Negative) Urine Glucose (UA) (Negative) Urine Ketones (Negative) Urine Blood (Negative) Urine Nitrite (Negative) Urine Bilirubin (Negative) Urine Urobilinogen (Negative) Ur Leukocyte Esterase (Negative) Urine WBC (Auto) (0-5) /hpf Urine RBC (Auto) (0-4) /hpf U Hyaline Cast (Auto) (0-5) /lpf U Epithel Cells (Auto) (0-5) /lpf Urine Bacteria (Auto) (Negative) SARS-CoV-2, RNA, NAAT NEGATIVE (NEGATIVE) 02/15/23 Range/Units 16:47 WBC (4.8-10.8) K/ul RBC (4.20-5.40) M/uL Hgb (12.0-16.0) g/dl Hct (37.0-47.0) % MCV (80.0-100.0) fL MCH (25.0-34.0) pg MCHC (32.0-36.0) g/dL RDW Std Deviation (36.4-46.3) fL RDW Coeff of Stiven (11.5-14.5) % Plt Count (130-400) K/uL MPV (9.4-12.4) fL Immature Gran % (Auto) % Neut % (Auto) % Lymph % (Auto) % [place] % (Auto) % Eos % (Auto) % Baso % (Auto) % Neut # (Auto) (1.40-6.50) K/uL Lymph # (Auto) (1.2-3.4) K/uL [place] # (Auto) (0.11-0.59) K/uL Eos # (Auto) (0-0.50) K/uL Baso # (Auto) (0-0.2) K/uL Immature Gran # (Auto) (0.01-0.20) K/uL Sodium (136-145) mmol/L Potassium (3.5-5.1) mmol/L Chloride (98-107) mmol/L Carbon Dioxide (21-32) mmol/L Anion Gap (3-11) BUN (6-23) mg/dl Creatinine (0.6-1.2) mg/dl Est Cr Clr Drug Dosing Est GFR ( Amer) ml/min Est GFR (Non-Af Amer) ml/min BUN/Creatinine Ratio (10-20) Glucose (70-99(Fasting)) mg/dl Calcium (8.6-10.3) mg/dl Magnesium (1.7-2.4) mg/dl Total Bilirubin (0.2-1.0) mg/dl AST (13-39) U/L ALT (7-52) U/L Alkaline Phosphatase (34-104) U/L Troponin I High Sens (0-14) pg/ml Total Protein (6.0-8.3) gm/dl Albumin (3.4-5.0) gm/dl Globulin (2.5-4.0) gm/dl Albumin/Globulin Ratio (0.9-2) TSH (0.300-4.500) uIu/ml Prolactin ng/ml Urine Color Dark Yellow Urine Appearance Cloudy A (Clear) Urine pH 8.5 H (4.5-7.5) Ur Specific [place] 1.009 (1.000-1.030) Urine Protein Negative (Negative) Urine Glucose (UA) Negative (Negative) Urine Ketones Negative (Negative) Urine Blood Negative (Negative) Urine Nitrite Positive A (Negative) Urine Bilirubin Negative (Negative) Urine Urobilinogen Negative (Negative) Ur Leukocyte Esterase 1+ H (Negative) Urine WBC (Auto) 10-30 H (0-5) /hpf Urine RBC (Auto) 0-4 (0-4) /hpf U Hyaline Cast (Auto) 1-5 (0-5) /lpf U Epithel Cells (Auto) >30 H (0-5) /lpf Urine Bacteria (Auto) Negative (Negative) SARS-CoV-2, RNA, NAAT (NEGATIVE) Administered Medications Discontinued Medications Sodium Chloride (Nss) 500 mls @ 999 mls/hr IV .Q31M GARO Stop: 02/15/23 13:45 Last Infusion: 02/15/23 14:10 Dose: 0 mls/hr Documented By: Admin: 02/15/23 13:21 Dose: 999 mls/hr Documented By: CODIE Sodium Chloride (Nss 1000ml) 500 mls @ 999 mls/hr IV .Q31M ONE Stop: 02/15/23 15:11 Last Infusion: 02/15/23 15:20 Dose: 0 mls/hr Documented By: Admin: 02/15/23 14:45 Dose: 999 mls/hr Documented By: CODIE Imaging Data Radiologist's Impression: Chest X-Ray 02/15/23 13:04 XR chest 1V portable CLINICAL HISTORY: weakness COMPARISON STUDY: Chest radiograph August 30, 2022. FINDINGS: There is no pneumothorax or pleural effusion. Cardiomegaly is un changed. No evidence for pulmonary edema. Mild bibasilar opacities are noted. Atelectasis is favored. IMPRESSION: 1. No acute cardiopulmonary findings. 2. Cardiomegaly without evidence for pulmonary edema. 2. Bibasilar opacities. Atelectasis is favored. ACT 112: Negative or not required by law. Electronically signed by: Oleksandr Napier M.D. 02/15/2023 1:[address] 02/15/23 13:15 CT OF THE HEAD WITHOUT CONTRAST CLINICAL HISTORY: Syncope. COMPARISON STUDY: Head CT June 14, 2022. MRI of the brain April 29, 2022. CT DOSE: 547.75 mGy.cm TECHNIQUE: Helical axial images of the head were obtained without IV contrast. Automated exposure control was utilized for the study. A dose lowering technique was utilized adhering to the principles of ALARA. FINDINGS: No acute intracranial hemorrhage, midline shift or mass effect is present. White matter hypodensities are unchanged and favor small vessel disease. The ventricular system is unremarkable. The basal cisterns are patent. No extra-axial collections are present. There are no findings to suggest acute dural sinus thrombosis or acute territorial infarct. No significant calvarial abnormalities are present. Visualized portions of the sinuses and mastoid air cells are clear. IMPRESSION: No acute intracranial findings. No change in appearance of the brain. ACT 112: Negative or not required by law. Electronically signed by: Oleksandr Napier M.D. 02/15/2023 2:35 PM Discharge Plan Visit Data Chief Complaint: Syncope Stated Complaint: CONSTANTLY PASSING OUT ED Provider: Aneudy Ríos Discharge Problem: Syncope, DIA (acute kidney injury), Urinary incontinence, Acute dehydration, Elevated troponin Patient Disposition: Admitted As Inpatient Condition: Fair Forms Stand Alone Forms: My [facility] Prescriptions Prescriptions: No Action fluocinonide 0.05 % cream 1 applic topical DAILY Patient Comments: Apply on the head for Psoriasis triamcinolone acetonide 0.1 % cream 1 applic topical DIRECTED PRN (Reason: Skin Irritation) Patient Comments: Applied on the back for Psoriasis Rx Instructions: apply to dermatitis on trunk and extremities twice a day until till healed then as needed fluticasone propionate 50 mcg/actuation spray,suspension 1 - 2 spray intranasal DAILY Qty: 18.2 5RF diclofenac sodium 1 % gel See Rx Instructions .ROUTE .COMPLEX Qty: 300 1RF Dose Instruction: APPLY TOPICALLY 2G 4 TIMES A DAY NEEDED FOR PAIN Rx Instructions: APPLY TOPICALLY 2G 4 TIMES A DAY NEEDED FOR PAIN Anoro Ellipta 62.5-25 mcg/actuation blister with device 1 ea inhalation DAILY Qty: 60 5RF gabapentin 100 mg capsule 200 mg PO HS Qty: 60 5RF Rx Instructions: TAKE 2 CAPSULES BY MOUTH AT BEDTIME levothyroxine 75 mcg capsule 75 mcg PO DAILY Qty: 60 0RF lisinopril 10 mg tablet 10 mg PO BID Qty: 180 3RF cholecalciferol (vitamin D3) 125 mcg (5,000 unit) tablet 125 mcg PO DAILY albuterol sulfate 90 mcg/actuation HFA aerosol inhaler 2 puff inhalation Q4H PRN (Reason: Shortness Of Breath) Qty: 1 calcium carbonate [Calcium 600] 600 mg calcium (1,500 mg) tablet 1,200 mg PO DAILY Probiotic 3 billion cell capsule 6,000 mmu cells PO DAILY Rx Instructions: administer with a meal cranberry fruit concentrate [Azo Cranberry] PO BID nystatin 100,000 unit/gram cream 1 applic topical DAILY PRN (Reason: fungal) PreserVision AREDS 4,296 mcg-226 mg-90 mg capsule 1 cap PO DAILY aspirin 81 mg tablet,delayed release (DR/EC) 81 mg PO DAILY Patient Comments: magnesium 250 mg tablet 250 mg PO DAILY Qty: 30 0RF Rx Instructions: OTC nitroglycerin [Nitrostat] 0.4 mg Tablet, Sublingual 0.4 mg sublingual UD PRN (Reason: chest pain) Qty: 1 0RF Rx Instructions: max 3 tabs in 15 minutes atorvastatin 20 mg tablet 20 mg PO DAILY Referrals Referrals: Best Sow MD [Physician] -
--- NOTE | 2023-02-15 13:48 | XRay Report ---
XR chest 1V portable CLINICAL HISTORY: weakness COMPARISON STUDY: Chest radiograph August 30, 2022. FINDINGS: There is no pneumothorax or pleural effusion. Cardiomegaly is unchanged. No evidence for pu lmonary edema. Mild bibasilar opacities are noted. Atelectasis is favored. IMPRESSION: 1. No acute cardiopulmonary findings. 2. Cardiomegaly without evidence for pulmonary edema. 2. Bibasilar opacities. Atelectasis is favored. ACT 112: Negative or not required by law. Electronically signed by: Oleksandr Napier M.D. 02/15/2023 1:45 PM
[2023-02-15 14:00] LABS: Basophils # (auto) 0.07 K/uL (0-0.2); Basophils % (auto) 0.8 %; Eosinophils # (auto) 0.18 K/uL (0-0.50); Eosinophils % (auto) 2.2 %; Hematocrit (blood only) 37.2 % (37.0-47.0); Immature Granulocytes # (auto) 0.08 K/uL (0.01-0.20); Lymphocytes # (auto) 1.16 K/uL (1.2-3.4); Lymphocytes % (auto) 13.9 %; Mean Corpuscular Hemoglobin 32.3 pg (25.0-34.0); Mean Corpuscular Hgb Conc 32.3 g/dL (32.0-36.0); Mean Platelet Volume 10.1 fL (9.4-12.4); Monocytes # (auto) 0.59 K/uL (0.11-0.59); Monocytes % (auto) 7.1 %; Neutrophils # (auto) 6.27 K/uL (1.40-6.50); Platelet Count 218 K/uL (130-400); RDW Coefficient of Variation 12.9 % (11.5-14.5); RDW Standard Deviation 47.4 fL (36.4-46.3); Red Blood Count 3.72 M/uL (4.20-5.40); White Blood Count 8.35 K/ul (4.8-10.8)
[2023-02-15 14:15] LABS: Alanine Aminotransferase 10 U/L (7-52); Albumin Globulin Ratio 1.2 (0.9-2); Albumin Level 3.7 gm/dl (3.4-5.0); Alkaline Phosphatase 53 U/L (34-104); Anion Gap 8 (3-11); Aspartate Aminotransferase 16 U/L (13-39); BUN Creatinine Ratio 20.3 (10-20); Bilirubin,Total 0.4 mg/dl (0.2-1.0); Blood Urea Nitrogen 37 mg/dl (6-23); Calcium 9.5 mg/dl (8.6-10.3); Carbon Dioxide 29 mmol/L (21-32); Chloride 104 mmol/L (98-107); Est GFR (African American) 28.2 ml/min; Est GFR (Non-African American) 24.4 ml/min; Globulin 3.1 gm/dl (2.5-4.0); Glucose 107 mg/dl (70-99(Fasting)); Magnesium 1.9 mg/dl (1.7-2.4); Potassium 4.6 mmol/L (3.5-5.1); Sodium 141 mmol/L (136-145); Total Protein 6.8 gm/dl (6.0-8.3)
[2023-02-15 14:21] LABS: Troponin I High Sensitivity 36.7 pg/ml (0-14)
--- NOTE | 2023-02-15 14:37 | CT Scan Report ---
CT OF THE HEAD WITHOUT CONTRAST CLINICAL HISTORY: Syncope. COMPARISON STUDY: Head CT June 14, 2022. MRI of the brain April 29, 2022. CT DOSE: 547.75 mGy.cm TECHNIQUE: Helical axial images of the head were obtained without IV contrast. Automated exposure con trol was utilized for the study. A dose lowering technique was utilized adhering to the principles o f ALARA. FINDINGS: No acute intracranial hemorrhage, midline shift or mass effect is present. White matter hyp odensities are unchanged and favor small vessel disease. The ventricular system is unremarkable. The basal cisterns are patent. No extra-axial collections are present. There are no findings to suggest a cute dural sinus thrombosis or acute territorial infarct. No significant calvarial abnormalities are present. Visualized portions of the sinuses and mastoid air cells are clear. IMPRESSION: No acute intracranial findings. No change in appearance of the brain. ACT 112: Negative or not required by law. Electronically signed by: Oleksandr Napier M.D. 02/15/2023 2:35 PM
[2023-02-15] MEDS ORDERED: SODIUM CHLORIDE 0.9% 1000ML 500 ML IV ONE (14:41)
--- NOTE | 2023-02-15 15:14 | Electrocardiogram Report ---
Test Reason : Blood Pressure : / mmHG Vent. Rate : 066 BPM Atrial Rate : 066 BPM P-R Int : 178 ms QRS Dur : 122 ms QT Int : 442 ms P-R-T Axes : 075 -19 140 degrees QTc Int : 463 ms Normal sinus rhythm with sinus arrhythmia Left bundle branch block Abnormal ECG When compared with ECG of 30-AUG-2022 11:29, No significant change was found Confirmed by Irineo Jacobsen ([id number]) on 02/15/2023 3:14:26 PM Referred By: REFERRED SELF Confirmed By:Irineo Jacobsen
[2023-02-15 17:09] LABS: Appearance Urine Cloudy (Clear); Bacteria Urine Automated Negative (Negative); Bilirubin Urine Negative (Negative); Blood Urine Negative (Negative); Color Urine Dark Yellow; Epithelial Cell Urine Auto >30 /lpf (0-5); Glucose Urine UA Negative (Negative); Ketones Urine Negative (Negative); Leukocyte Esterase Urine 1+ (Negative); Nitrite Urine Positive (Negative); Protein Urine Negative (Negative); RBC Urine Automated 0-4 /hpf (0-4); Specific Gravity Urine 1.009 (1.000-1.030); Urobilinogen Urine Negative (Negative); pH Urine 8.5 (4.5-7.5)
--- NOTE | 2023-02-15 17:48 | History & Physical Report ---
Date of Service February 15, 2023 Assessment & Plan (1) Syncope: Plan: Syncope,? Seizure, history of vertebrobasilar insufficiency Admitting EKG: Normal sinus rhythm with sinus arrhythmia. Left bundle branch block. Rate 66, QTc 463. No significant change from prior compared to 02/15/2023 TTE 08/2022: EF 45-50%, moderate tricuspid regurg, moderate MR, mild concentric LVH, no regional wall motion abnormalities, LV SF borderline reduced, interval improvement in LV SF compared to 04/29/2022 Known disease at V1 origin consistent with vertebral insufficiency. Patient has additional subclavian disease previously noted. Patient was evaluated by neurology 04/2022, given age and condition vascular surgery intervention was not recommended. Aspirin switched to Plavix was discussed, and patient was discharged with conservative medical management and follow-up to cardiology. MRIbrain 04/29/2022: No definite acute intracranial abnormality, advanced microvascular ischemic changes were noted and progressed compared to prior imaging. Head/neck CTA 04/29/2022: V1 right vertebral artery occlusion with reconstitution at distal V2 C1-C2 level, 70% stenosis of right ICA, high-grade stenosis of right subclavian CThead on admission no acute findings Episode prior to admission was increased in severity, length, and different in quality compared to prior episode of syncope. Her past episodes were also not associated with confusion/speech change. Prolactin is normal suggesting against seizure, although prolonged episode and confusion after sounds consistent with postictal state. DDx includes cardiogenic, patient is currently on monitoring; seizure induced and will have on seizure precautions with Ativan on-call with MRI seizure protocol pending; and possibly atypical TIA/CVA at time of assessment she has no ongoing deficits and has returned to her normal baseline Aspirin, atorvastatin continued. Seizure precautions, Ativan on-call Secondary hypothyroidism Continue Synthroid Hypertension Patient previously with carvedilol discontinued, lisinopril continued. Patient is mildly hypertensive at rest on admission, has had orthostatic symptoms with aggressive control in the past. Caution aggressive blood pressure control in the setting of vertebrobasilar insufficiency and known orthostasis Lisinopril held for DIA Amlodipine x1 given for hypertension greater than 180 in ER Carotid artery disease Continue aspirin daily, has declined conversion to Plavix due to easy bruising. She has recently increased aspirin to every day previous was taking 3 times a week due to easy bruising. No GI bleeds Continue atorvastatin 20 mg, patient reports she is not able to tolerate higher doses of this due to feeling achy all over. 70% right common carotid at bifurcation disease was noted, patient is previously been evaluated by vascular surgery and surgical intervention not advised. History of bradycardia On past evaluation no AV block/pauses were noted on telemetry review. Continue on telemetry while admitted Heart failure with reduced ejection fraction EF 40-45% on last echo Patient has no chest pain, chest pressure, shortness of breath, difficulty breathing with episode Troponin on admission with mild elevation of 36 which down trended on recheck consistent with demand Do not suspect ACS CKD Baseline creatinine around 1.3, admitting creatinine 1.82 suggestive of volume depletion Gentle fluids given history of CHF Trend BMP daily Renally dose medications Chronic anemia Improved, hemoglobin 12 on admission Iron studies 2021 within normal limits Trend daily Hypothyroidism Continue Synthroid COPD No signs of acute exacerbation, lungs are clear Continue home inhaler DVT prophylaxis: SCDs, heparin Diet: Heart healthy Disposition: PCU for arrhythmia monitoring, possible need for IV cardiac medications CODE STATUS: DNR/DNI discussed with patient (2) Dysequilibrium: (3) Secondary hypothyroidism: (4) Neuropathy: History of Present Illness Primary Care Provider: Kory Wan DO Gayle is an 87yo F who presents with syncope. Pt had one episode of suspected orthostatic syncope last week, had a second episode of syncope today after she had a headache which resolved on its own earlier in the morning. She reports she was riding in the car with her family, when she felt flushed and lightheaded. Patient then went stiff and was with urinary incontinence and vomiting, and had several episodes of unresponsiveness as noted by family members. She was sitting during this episode. She was amnesic to the episode, and had mild speech slurring following. Per ER: EKG on admission shows normal sinus rhythm, rate 66, left bundle branch block, no ST segment changes, QTc 463. No change from prior, left bundle branch block was not known Past episodes syncope/near syncope followed with cardiology Dr. Rhodes as an outpatient. She had a loop recorder in the past without significant bradycardia, and pacemaker was not recommended. 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 Due to elevated resting blood pressure, her lisinopril was also resumed as it was previously held but a dose reduced to 10 mg Case was reviewed with Dr. Cole & ER. Due to hx of symptoms with event monitor and some atypical symptoms recommended for admission and monitoring. Per Pt & Daughter: Reports that they were out shopping, and Gayle was waiting in the car. When Gayle's daughter returned to the car Gayle was found in car, very stuff but no shaking. She was very stiff and unresponsive with an open mouth, did not respond to commands or off her speech. She did have an episode of urinary incontinence, and then vomited. After vomiting she slowly began to improve, but was significantly confused and weak following the initial episode which lasted about 15 minutes.. Pt reprots she was sitting in the car and rem embers feeling a little off and lightheaded then woke up after. Pt and family reprot that this episode was much longer than her prior syncopal episodes. This episode is also very different in length and quality compared to her prior syncopal episodes Normally she passes out then comes around very quickly. This episode her mouth was open, body was stiff, and took much longer to come out. +urine incontinence but that is normal with episodes. Afterwards her daughter reports that Gayle seemed weak all over, and speech was slurred for at least 15 minutes before gradually improving memory is not normally affected after, this time it was. Denies chest pressure, chest pain, shortness of breath, or diffculty breathing Does always feels some tightness around her abdomen when she passes out, no re cent change. Denies recent illnesses including cough, congestion, fever, chills, sweats, diarrhea, constipation, nausea. She reports that even though she found with this episode she is not currently nauseous. Denies melena/hematochezia/hematemesis Medical History: Reviewed Medications: Reviewed. Aspirin MWF --> Every day 'but I bruise so easy and my skin is so thin.' Surgical History: Reviewed Family history: Reviewed Allergies: Reviewed Social History: No tobacco/alcohol use Code Status: DNR/DNI, confirmed with patient and daughter at bedside Allergies Allergy/AdvReac Type Severity Reaction Status Date / Time latex Allergy Intermediate SEVERE Verified 12/14/22 11:11 ITCHING cephalexin Allergy Mild RASH Verified 12/14/22 11:11 Home Medications Medication Instructions Recorded Confirmed Type cholecalciferol (vitamin D3) 125 125 mcg PO DAILY 10/02/19 12/14/22 History mcg (5,000 unit) tablet nystatin 100,000 unit/gram topical 1 applic topical DAILY PRN fungal 12/23/20 12/14/22 History cream fluocinonide 0.05 % topical cream 1 applic topical DAILY 01/19/21 12/14/22 History triamcinolone acetonide 0.1 % 1 applic topical DIRECTED PRN 01/19/21 12/14/22 History topical cream Skin Irritation albuterol sulfate 90 mcg/actuation 2 puff inhalation Q4H PRN 04/10/21 12/14/22 History aerosol inhaler Shortness Of Breath #1 g calcium carbonate 600 mg calcium 1,200 mg PO DAILY 06/16/21 12/14/22 History (1,500 mg) tablet (Calcium) lactobacillus combination no.4 3 6,000 mmu cells PO DAILY 06/16/21 12/14/22 History billion cell capsule (Probiotic) magnesium 250 mg tablet 250 mg PO DAILY #30 tabs 10/09/21 12/14/22 Rx fluticasone propionate 50 1 - 2 spray intranasal DAILY #18.2 02/05/22 12/14/22 Rx mcg/actuation nasal mL spray,suspension nitroglycerin 0.4 mg sublingual 0.4 mg sublingual UD PRN chest 05/02/22 12/14/22 Rx tablet (Nitrostat) pain #1 btl aspirin 81 mg tablet,delayed 81 mg PO DAILY 07/06/22 12/14/22 History release diclofenac sodium 1 % topical gel See Rx Instructions .Route 07/28/22 12/14/22 Rx .COMPLEX #300 grams atorvastatin 20 mg tablet 20 mg PO DAILY 08/30/22 12/14/22 History umeclidinium 62.5 mcg-vilanterol 1 ea inhalation DAILY #60 ea 09/28/22 12/14/22 Rx 25 mcg/actuation powdr for inhalation (Anoro Ellipta) cranberry fruit concentrate [Azo PO BID 10/14/22 12/14/22 History Cranberry] gabapentin 100 mg capsule 200 mg PO HS #60 caps 10/25/22 12/14/22 Rx vitamins A,C,N-uxdk-vnfcus 4,296 1 cap PO DAILY 12/14/22 12/14/22 History mcg-226 mg-90 mg capsule (PreserVision AREDS) levothyroxine 75 mcg capsule 75 mcg PO DAILY #60 caps 01/03/23 Rx lisinopril 10 mg tablet 10 mg PO BID #180 tabs 01/19/23 Rx Past Med/Surg History Medical History Abnormal ECG Acute chest wall pain Acute on chronic systolic heart failure Acute severe vertigo Anemia ARF (acute renal failure) Arthritis, multiple joint involvement Balance problems Bradycardia Cardiomyopathy Carotid stenosis, right Chest pain at rest Chronic cerebral ischemia Chronic kidney disease, stage IV (severe) Chronic kidney disease, stage IV (severe) CKD (chronic kidney disease), stage III COPD (chronic obstructive pulmonary disease) COVID-19 Episodic lightheadedness Gram-negative bacteremia HFrEF (heart failure with reduced ejection fraction) HTN (hypertension) Hypercholesterolemia Hypomagnesemia Hypothyroidism Impaired fasting glucose Infection, Pasteurella LBBB (left bundle branch block) Mitral regurgitation Nocturia Osteoporosis Pasteurella infection Pseudogout of hand Right arm cellulitis Secondary hypothyroidism Septic arthritis of hand, right Situational anxiety Subclavian artery stenosis, right Syncope (08/2022) Syncope and collapse (05/15/14) UTI (urinary tract infection) UTI (urinary tract infection) Vertebral artery stenosis Vertebrobasilar insufficiency Surgical History H/O: hysterectomy History of breast biopsy History of bunionectomy History of carpal tunnel surgery History of inguinal hernia repair History of myringotomy History of rotator cuff surgery Hx of adenoidectomy Hx of tonsillectomy S/P appendectomy S/P cholecystectomy Family History Mother Alzheimer disease Stroke Father Emphysema, unspecified COPD (chronic obstructive pulmonary disease) Grandfather (Maternal) Colorectal cancer Uncle Prostate cancer Denies family history of Ovarian cancer Diabetes Coronary heart disease Heart disease Myocardial infarction Breast cancer Lung cancer Social History Smoking Status: Former smoker Tobacco Type: Cigarettes Age Started Using Tobacco: 23; Age Quit Using Tobacco: 61; Cigarettes Per Day: 1 ppd; Second Hand Exposure: No; Do You Dip or Chew Tobacco: No; Hx Alcohol Use: No Hx Substance Use: No Preferred Language: British Communication Ability: Effective Visual Impairment: Limited Hearing Ability: Use of Hearing Aid Child Care Assistant Required: No Beliefs That Will Affect Care: None marital status: Current Living Situation: Personal Care Facility Current Living Situation Comment: [facility] current occupational 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 NAD. Cooperative. HEENT: Atraumatic, normocephalic. Vision and hearing grossly intact, slightly hard of hearing Pulm: CTAB A&P. -wheezes, -rales, -rhonchi. Symmetrical chest rise. No increased work of breathing. No respiratory distress. Cardiac: RRR, -mrg. Radial pulses intact and symmetrical. Abdominal: Nontender, nondistended, soft. BS present. CRANIAL NERVES: II: Pupils equal and reactive, no relative afferent pupillary defect, no VF cuts III, IV, : EOM intact, no gaze preference or deviation, no nystagmus. V: normal sensation in V1, V2, and V3 segments bilaterally VII: no asymmetry, no nasolabial fold flattening VIII: normal hearing to speech IX, X: normal palatal elevation, no uvular deviation XI: 5/5 head turn and 5/5 shoulder shrug bilaterally XII: midline tongue protrusion MOTOR: RUE: 5/5 assembler sandal parts strength, finger flexion/extension, interosseus; elbow flexion/extension LUE: 5/5 assembler sandal parts strength, finger flexion/extension, interosseus; elbow flexion/extension RLE: 5/5 to hip flexion/extension, ankle dorsiflexion/plantarflexion LLE: 5/5 to hip flexion/extension, ankle dorsiflexion/plantarflexion REFLEXES: 2/4 patellar, no clonus SENSORY: Normal to touch in upper and lower extremities without deficit or asymmetry COORD: Normal finger to nose , no dysmetria S Results & Data Results & Data Vital Signs (Past 12 Hours) Vital Signs Temp Pulse Pulse Resp BP BP Pulse Ox 02/15/23 17:30 70 17 181/80 H 95 02/15/23 16:00 79 17 189/79 H 97 02/15/23 15:00 75 15 187/76 H 93 02/15/23 14:11 62 18 169/62 H 94 02/15/23 13:16 62 02/15/23 13:11 96 02/15/23 13:11 66 18 139/61 96 02/15/23 12:55 36.4 C L 64 20 104/55 L 93 O2 Del Method 02/15/23 17:30 Room Air 02/15/23 16:00 Room Air 02/15/23 15:00 Room Air 02/15/23 14:11 Room Air 02/15/23 13:16 02/15/23 13:11 Room Air 02/15/23 13:11 Room Air 02/15/23 12:55 Room Air PG Care Time/CCT Total # of Minutes Spent Total Time Spent with Patient: Total time spent is greater than 50% in coordination of care (as documented) at patient's floor/unit and/or counseling patient: Coding Level of Care Code 58360 INT INP/OBS CARE 3/75MIN Diagnoses Syncope R55 Dysequilibrium R42 Secondary hypothyroidism E03.8 Neuropathy G62.9
[2023-02-15] MEDS ORDERED: ALBUTEROL HFA 8 GM INHALER INH PRN (21:35)
[2023-02-15] MEDS ORDERED: LORazepam 2 MG/1 ML VIAL IV PRN (21:35)
[2023-02-15] MEDS ORDERED: Patient's HEIGHT &/or WEIGHT Needed SCH (22:00)
[2023-02-16] MEDS: GABAPENTIN 100 MG CAP PO SCH ×2 (00:47→20:42)
[2023-02-16] MEDS: HEPARIN SOD 5,000 UNIT/0.5 ML VIAL SQ SCH ×3 (00:48→20:43)
[2023-02-16] MEDS: LEVOTHYROXINE SODIUM 75 MCG TABLET PO SCH (05:07)
[2023-02-16 06:22] LABS: Basophils # (auto) 0.06 K/uL (0-0.2); Basophils % (auto) 0.7 %; Eosinophils # (auto) 0.31 K/uL (0-0.50); Eosinophils % (auto) 3.8 %; Hematocrit (blood only) 32.7 % (37.0-47.0); Hemoglobin 10.4 g/dl (12.0-16.0); Immature Granulocytes # (auto) 0.06 K/uL (0.01-0.20); Immature Granulocytes % (auto) 0.7 %; Lymphocytes # (auto) 1.61 K/uL (1.2-3.4); Lymphocytes % (auto) 19.6 %; Mean Corpuscular Hemoglobin 31.5 pg (25.0-34.0); Mean Corpuscular Hgb Conc 31.8 g/dL (32.0-36.0); Mean Corpuscular Volume 99.1 fL (80.0-100.0); Mean Platelet Volume 9.6 fL (9.4-12.4); Monocytes # (auto) 0.65 K/uL (0.11-0.59); Monocytes % (auto) 7.9 %; Neutrophils # (auto) 5.51 K/uL (1.40-6.50); Neutrophils % (auto) 67.3 %; Platelet Count 202 K/uL (130-400); RDW Coefficient of Variation 12.8 % (11.5-14.5); RDW Standard Deviation 45.9 fL (36.4-46.3)
[2023-02-16 06:37] LABS: BUN Creatinine Ratio 21.6 (10-20); Creatinine Clr Calc Pharmacy 23.9 ml/min; Est GFR (African American) 34.8 ml/min; Est GFR (Non-African American) 30.1 ml/min; Potassium 4.1 mmol/L (3.5-5.1)
[2023-02-16] MEDS: ATORVASTATIN 20 MG TAB PO SCH (09:13)
[2023-02-16] MEDS: ASPIRIN 81 MG ECTAB PO SCH (09:13)
[2023-02-16] MEDS: UMECLIDINIUM/VILANTEROL 62.5/25MCG 7 PUFFS/INHALER INH SCH (09:13)
--- NOTE | 2023-02-16 15:42 | Magnetic Resonance Report ---
MR brain seizure wo con CLINICAL HISTORY: ?seizure TECHNIQUE: Multiplanar and multisequence MR images of the brain were obtained prior to and following administration of gadolinium contrast. Comparison: Comparison is made to MRI brain 04/29/2022 FINDINGS: No abnormal restricted diffusion is identified. Foci of T2 and FLAIR hyperintensity are noted in the paraventricular areas consistent with chronic small vessel ischemic disease. Ex vacuo ventriculomegal y and sulcal enlargement is noted compatible with diffuse volume loss.No mass or abnormal enhancement is seen. There is no mass effect or midline shift. There is no evidence of acute intraparenchymal he morrhage. No extra axial fluid collections are seen. The corpus callosum, pituitary gland, and cerebe llar tonsils appear grossly unremarkable. High-resolution images of the temporal lobes do not demonst rate any signal abnormality. Flow voids of the major intracranial arterial vessels are identified. The imaged portions of the para nasal sinuses, mastoid air cells, and orbits are unremarkable. IMPRESSION: No acute abnormality. In particular, no edema in the temporal lobes bilaterally in this postictal pat ient. ACT 112: Negative or not required by law. Electronically signed by: Jeff Mccollum M.D. 02/16/2023 3:41 PM
--- NOTE | 2023-02-16 19:12 | Neurology Consultation ---
Date of Consultation February 16, 2023 Assessment & Plan (1) Syncope: The etiology of these spells is unclear. Agree with medicine that seizure remains on the differential. However, despite BP med adjustments she continues to have orthostatic hypotension on testing. MRI is again reassuring and noted from my colleagues prior evaluations that she does have scattered posterior circulation atherosclerotic disease. Configuration is not consistent with subclavian steal. Cardiac eval including loop recorder has also been unremarkable as has a negative EEG in the past. Pragmatically, regardless of etiology, she has had so many over the past 7 years without negative effects that there is no evidence to support these are somehow harmful or dangerous to her. In my opinion, we could try empiric Keppra 500mg BID to see if the episodes stop, regardless of prior EEG results. There may be room to further augment her BP as well. There is low likelihood of causing harm with this strategy. Alternatively, we could do nothing given her history of these events and negative testing both during this visit and historically. I would otherwise leave it to her family/PCP to decide. We will sign off, please contact us with any further questions. Telehealth Consultation Telehealth Information Telehealth Information: I performed this visit using a real-time telehealth connection between my location and the patients location ([facility]). After connecting through interactive tele-video, patient was identified by name and date of and/or wristband check.Patient (or authorized healthcare repres entative) was informed that this was a telemedicine visit and it was being conducted confidentially over secure lines. My office door was closed and no one else was present in the room with me.Patient (or authorized healthcare employee representative) provided consent to proceed with the visit, expressed an understanding of privacy and security of the telemedicine visit, and gave permission to have a hospital employee representative in the room in order to assist with the visit and to conduct portions of the visit, as needed. I informed the patient (or authorized healthcare employee representative) that I reviewed their record and presented the opportunity for them to ask any questions regarding the visit today. The patient agreed to participate. History of Present Illness Reason for Consultation: Syncope Requesting Physician: Dr. Key Attending Physician: Ismael Key History of Present Illness Gayle Perkins is an 87 yo F with an extensive history of loss of consciousness e pisodes over the past 7+ years. She has been evaluated by neurology and cardiology numerous times in the past without answers. She is frustrated that the same tests are consistently performed and that she has to be admitted to the hospital every time this occurs. She reports having no warning before an episode and in most occasions she is sitting and does not lose postural tone/fall to the floor. Years ago she used to become flushed prior to an event which was a warning for her. Importantly, she has never been injured in an event before despite innumerable occurrences. Recently she has had adjustments to her BP meds due to hypotension but per the event yesterday in her daughters car, it does not seem to have helped. Allergies Allergy/AdvReac Type Severity Reaction Status Date / Time latex Allergy Intermediate SEVERE Verified 12/14/22 11:11 ITCHING cephalexin Allergy Mild RASH Verified 12/14/22 11:11 Home Medications Medication Instructions Recorded Confirmed Type cholecalciferol (vitamin D3) 125 125 mcg PO DAILY 10/02/19 02/15/23 History mcg (5,000 unit) tablet nystatin 100,000 unit/gram topical 1 applic topical DAILY PRN fungal 12/23/20 02/15/23 History cream fluocinonide 0.05 % topical cream 1 applic topical DAILY 01/19/21 02/15/23 History albuterol sulfate 90 mcg/actuation 2 puff inhalation Q4H PRN 04/10/21 02/15/23 History aerosol inhaler Shortness Of Breath #1 g calcium carbonate 600 mg calcium 1,200 mg PO DAILY 06/16/21 02/15/23 History (1,500 mg) tablet (Calcium) lactobacillus combination no.4 3 6,000 mmu cells PO DAILY 06/16/21 02/15/23 History billion cell capsule (Probiotic) magnesium 250 mg tablet 250 mg PO DAILY #30 tabs 10/09/21 02/15/23 Rx fluticasone propionate 50 1 - 2 spray intranasal DAILY #18.2 02/05/22 02/15/23 Rx mcg/actuation nasal mL spray,suspension nitroglycerin 0.4 mg sublingual 0.4 mg sublingual UD PRN chest 05/02/22 02/15/23 Rx tablet (Nitrostat) pain #1 btl aspirin 81 mg tablet,delayed 81 mg PO DAILY 07/06/22 02/15/23 History release diclofenac sodium 1 % topical gel See Rx Instructions .Route 07/28/22 02/15/23 Rx .COMPLEX #300 grams atorvastatin 20 mg tablet 20 mg PO 3XWK 08/30/22 02/15/23 History umeclidinium 62.5 mcg-vilanterol 1 ea inhalation DAILY #60 ea 09/28/22 02/15/23 Rx 25 mcg/actuation powdr for inhalation (Anoro Ellipta) gabapentin 100 mg capsule 200 mg PO HS #60 caps 10/25/22 02/15/23 Rx vitamins A,C,E-sbca-tqcxkq 4,296 1 cap PO DAILY 12/14/22 02/15/23 History mcg-226 mg-90 mg capsule (PreserVision AREDS) levothyroxine 75 mcg capsule 75 mcg PO DAILY #60 caps 01/03/23 02/15/23 Rx lisinopril 10 mg tablet 10 mg PO BID #180 tabs 01/19/23 02/15/23 Rx cranberry fruit concentrate 250 mg 250 mg PO BID 02/15/23 02/15/23 History chewable tablet (Azo Cranberry) Patient History Medical History Abnormal ECG Acute chest wall pain Acute on chronic systolic heart failure Acute severe vertigo Anemia ARF (acute renal failure) Arthritis, multiple joint involvement Balance problems Bradycardia Cardiomyopathy Carotid stenosis, right Chest pain at rest Chronic cerebral ischemia Chronic kidney disease, stage IV (severe) Chronic kidney disease, stage IV (severe) CKD (chronic kidney disease), stage III COPD (chronic obstructive pulmonary disease) COVID-19 09/2021 - required hospitalization Episodic lightheadedness Gram-negative bacteremia HFrEF (heart failure with reduced ejection fraction) EF 45-50% - 2020 echo HTN (hypertension) Hypercholesterolemia Hypomagnesemia Hypothyroidism Impaired fasting glucose Infection, Pasteurella LBBB (left bundle branch block) Mitral regurgitation Nocturia Osteoporosis Pasteurella infection with bacteremia, 2nd to cat scratch and RUE cellulitis - 06/16 Pseudogout of hand Right arm cellulitis Secondary hypothyroidism Septic arthritis of hand, right Situational anxiety Subclavian artery stenosis, right Syncope (08/2022) Syncope and collapse (05/15/14) UTI (urinary tract infection) recurrent UTI (urinary tract infection) Vertebral artery stenosis Vertebrobasilar insufficiency Surgical History H/O: hysterectomy History of breast biopsy History of bunionectomy History of carpal tunnel surgery History of inguinal hernia repair History of myringotomy History of rotator cuff surgery Hx of adenoidectomy Hx of tonsillectomy S/P appendectomy S/P cholecystectomy Family History Mother Alzheimer disease Stroke Father Emphysema, unspecified COPD (chronic obstructive pulmonary disease) Grandfather (Maternal) Colorectal cancer Uncle Prostate cancer Denies family history of Ovarian cancer Diabetes Coronary heart disease Heart disease Myocardial infarction Breast cancer Lung cancer Social History Smoking Status: Former smoker Tobacco Type: Cigarettes Age Started Using Tobacco: 23; Age Quit Using Tobacco: 61; Cigarettes Per Day: 1 ppd; Second Hand Exposure: No; Do You Dip or Chew Tobacco: No; Hx Alcohol Use: No Hx Substance Use: No Preferred Language: Colombian Communication Ability: Effective Visual Impairment: Limited Hearing Ability: Use of Hearing Aid Supply Teacher Required: No Beliefs That Will Affect Care: None marital status: Current Living Situation: Alone and Personal Care Facility Current Living Situation Comment: Patient lives in "independent living" apartment at [facility] current occupational 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 Oriented to person, place, and time. Fluent. Comprehension intact. Affect appropriate. Cranial Nerves: III/IV/: Versions intact without nystagmus, no gaze preference. VII: Facial expression symmetric VIII: [place] Motor: Strength was symmetric in the upper extremities without drift. No fatigue with sustained arm raise. Results & Data Vital Signs (Past 12 Hours) Vital Signs Temp Pulse Pulse Resp BP Pulse Ox O2 Del Method 02/16/23 16:25 36.7 C 70 18 133/76 96 Room Air 02/16/23 07:50 66 02/16/23 10:34 36.7 C 70 18 139/57 L 93 Room Air 02/16/23 09:00 36.6 C 70 20 127/50 L 91 Room Air Laboratory Results Abnormal lab results 02/16/23 02/16/23 Range/Units 05:35 05:35 RBC 3.30 L (4.20-5.40) M/uL Hgb 10.4 L (12.0-16.0) g/dl Hct 32.7 L (37.0-47.0) % MCHC 31.8 L (32.0-36.0) g/dL [place] # (Auto) 0.65 H (0.11-0.59) K/uL Chloride 108 H (98-107) mmol/L BUN 33 H (6-23) mg/dl Creatinine 1.53 H (0.6-1.2) mg/dl BUN/Creatinine Ratio 21.6 H (10-20) Diagnostic Findings MRI brain unremarkable (1) Syncope Syncope type: unspecified Qualified Code(s): R55 - Syncope and collapse
[2023-02-16] MEDS ORDERED: lisinopril 20 MG TAB PO SCH (21:00)
--- NOTE | 2023-02-16 22:44 | Hospitalist Progress Note ---
Date of Service February 16, 2023 Assessment & Plan (1) Syncope: Plan: Syncope,? Seizure, history of vertebrobasilar insufficiency Admitting EKG: Normal sinus rhythm with sinus arrhythmia. Left bundle branch block. Rate 66, QTc 463. No significant change from prior compared to 02/15/2023 TTE 08/2022: EF 45-50%, moderate tricuspid regurg, moderate MR, mild concentric LVH, no regional wall motion abnormalities, LV SF borderline reduced, interval improvement in LV SF compared to 04/29/2022 Known disease at V1 origin consistent with vertebral insufficiency. Patient has additional subclavian disease previously noted. Patient was evaluated by neurology 04/2022, given age and condition vascular surgery intervention was not recommended. Aspirin switched to Plavix was discussed, and patient was discharged with conservative medical management and follow-up to cardiology. MRIbrain 04/29/2022: No definite acute intracranial abnormality, advanced microvascular ischemic changes were noted and progressed compared to prior imaging. Head/neck CTA 04/29/2022: V1 right vertebral artery occlusion with reconstitution at distal V2 C1-C2 level, 70% stenosis of right ICA, high-grade stenosis of right subclavian CThead on admission no acute findings Episode prior to admission was increased in severity, length, and different in quality compared to prior episode of syncope. Her past episodes were also not associated with confusion/speech change. Prolactin is normal suggesting against seizure, although prolonged episode and confusion after sounds consistent with postictal state. DDx includes cardiogenic, patient is currently on monitoring; seizure induced and will have on seizure precautions with Ativan on-call with MRI seizure protocol pending; and possibly atypical TIA/CVA at time of assessment she has no ongoing deficits and has returned to her normal baseline Aspirin, atorvastatin continued. Seizure precautions, Ativan on-call -Appreciate input from Neuro: will hold add keppra and will defer to PCP. If patient continues to be asymptomatic in AM, will discharge on 02/17 Secondary hypothyroidism Continue Synthroid Hypertension Patient previously with carvedilol discontinued, lisinopril continued. Patient is mildly hypertensive at rest on admission, has had orthostatic symptoms with aggressive control in the past. Caution aggressive blood pressure control in the setting of vertebrobasilar insufficiency and known orthostasis Lisinopril held for DIA Amlodipine x1 given for hypertension greater than 180 in ER Carotid artery disease Continue aspirin daily, has declined conversion to Plavix due to easy bruising. She has recently increased aspirin to every day previous was taking 3 times a week due to easy bruising. No GI bleeds Continue atorvastatin 20 mg, patient reports she is not able to tolerate higher doses of this due to feeling achy all over. 70% right common carotid at bifurcation disease was noted, patient is previously been evaluated by vascular surgery and surgical intervention not advised. History of bradycardia On past evaluation no AV block/pauses were noted on telemetry review. Continue on telemetry while admitted Heart failure with reduced ejection fraction EF 40-45% on last echo Patient has no chest pain, chest pressure, shortness of breath, difficulty breathing with episode Troponin on admission with mild elevation of 36 which down trended on recheck consistent with demand Do not suspect ACS CKD Baseline creatinine around 1.3, admitting creatinine 1.82 suggestive of volume depletion Gentle fluids given history of CHF Trend BMP daily Renally dose medications Chronic anemia Improved, hemoglobin 12 on admission Iron studies 2021 within normal limits Trend daily Hypothyroidism Continue Synthroid COPD No signs of acute exacerbation, lungs are clear Continue home inhaler DVT prophylaxis: SCDs, heparin Diet: Heart healthy Disposition: PCU for arrhythmia monitoring, possible need for IV cardiac medications CODE STATUS: DNR/DNI discussed with patient (2) Dysequilibrium: (3) Secondary hypothyroidism: (4) Neuropathy: Admission and Anticipated Discharge Date Admission Date: February 15, 2023 Subjective Patient reports feeling well. She does not want to add any additional medications. Review of Systems Review of Systems: All systems reviewed & are unremarkable except as noted in HPI & below Physical Exam Physical Exam: General: Oriented to name, month, and place. NAD. Cooperative. HEENT: Atraumatic, normocephalic. Vision and hearing grossly intact, slightly hard of hearing Pulm: CTAB A&P. -wheezes, -rales, -rhonchi. Symmetrical chest rise. No increased work of breathing. No respiratory distress. Cardiac: RRR, -mrg. Radial pulses intact and symmetrical. Abdominal: Nontender, nondistended, soft. BS present. neuro: moves all extremities Results & Data Results & Data Vital Signs (Past 12 Hours) Vital Signs Temp Pulse Resp BP Pulse Ox O2 Del Method 02/16/23 20:40 72 162/81 H 02/16/23 19:29 36.7 C 65 18 170/75 H 93 Room Air 02/16/23 16:25 36.7 C 70 18 133/76 96 Room Air PG Care Time/CCT Total # of Minutes Spent Total Time Spent with Patient: Total time spent is greater than 50% in coordination of care (as documented) at patient's floor/unit and/or counseling patient: Coding Level of Care Code 09259 SUB INP/OBS CARE 2/35MIN Diagnoses Syncope R55 Dysequilibrium R42 Secondary hypothyroidism E03.8 Neuropathy G62.9
[2023-02-17] MEDS: LEVOTHYROXINE SODIUM 75 MCG TABLET PO SCH (06:10)
[2023-02-17 06:51] LABS: Basophils # (auto) 0.06 K/uL (0-0.2); Basophils % (auto) 0.7 %; Eosinophils # (auto) 0.37 K/uL (0-0.50); Eosinophils % (auto) 4.4 %; Hemoglobin 10.8 g/dl (12.0-16.0); Immature Granulocytes # (auto) 0.06 K/uL (0.01-0.20); Immature Granulocytes % (auto) 0.7 %; Lymphocytes # (auto) 1.25 K/uL (1.2-3.4); Lymphocytes % (auto) 14.7 %; Mean Corpuscular Hemoglobin 31.6 pg (25.0-34.0); Mean Corpuscular Hgb Conc 31.8 g/dL (32.0-36.0); Mean Corpuscular Volume 99.4 fL (80.0-100.0); Mean Platelet Volume 10.2 fL (9.4-12.4); Monocytes # (auto) 0.72 K/uL (0.11-0.59); Monocytes % (auto) 8.5 %; Neutrophils # (auto) 6.03 K/uL (1.40-6.50); Platelet Count 204 K/uL (130-400); RDW Coefficient of Variation 12.8 % (11.5-14.5); RDW Standard Deviation 45.9 fL (36.4-46.3); Red Blood Count 3.42 M/uL (4.20-5.40); White Blood Count 8.49 K/ul (4.8-10.8)
[2023-02-17 07:08] LABS: BUN Creatinine Ratio 24.2 (10-20); Calcium 8.9 mg/dl (8.6-10.3); Creatinine Clr Calc Pharmacy 23.4 ml/min; Est GFR (African American) 32.8 ml/min; Est GFR (Non-African American) 28.3 ml/min; Potassium 4.4 mmol/L (3.5-5.1)
--- NOTE | 2023-02-17 07:47 | Hospitalist Progress Note ---
Date of Service February 17, 2023 Assessment & Plan (1) Syncope: Plan: Syncope, Episode while sitting in car, LOC but regained easily, CT head negative for acute changes No admitting ECG changes from baseline. 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 Secondary hypothyroidism, chronic and stable Continue Synthroid Hypertension, chronic unclear if stable mildly hypertensive at rest on admission, has had orthostatic symptoms with aggressive control in the past. Lisinopril held for DIA History of bradycardia On past evaluation no AV block/pauses were noted on telemetry review. Continue on telemetry Elevated troponion, no ACS symptoms, suspect demand ischemia in face of lower blood pressure suspected CKD 3, with DIA on presentation Hypothyroidism chronic and stable Continue Synthroid DVT prophylaxis: SCDs, heparin CODE STATUS: DNR/DNI discussed with patient (2) Dysequilibrium: (3) Secondary hypothyroidism: (4) Neuropathy: Admission and Anticipated Discharge Date Admission Date: February 15, 2023 Results & Data Results & Data Vital Signs (Past 12 Hours) Vital Signs Temp Pulse Pulse Resp BP Pulse Ox O2 Del Method 02/17/23 07:39 97.9 F 62 17 139/62 92 Room Air 02/17/23 07:21 65 02/17/23 02:46 98.1 F 65 18 147/58 H 92 Room Air 02/16/23 22:31 71 02/16/23 22:58 98.2 F 67 18 165/85 H 92 Room Air 02/16/23 20:40 72 162/81 H PG Care Time/CCT Total # of Minutes Spent Total Time Spent with Patient: Total time spent is greater than 50% in coordination of care (as documented) at patient's floor/unit and/or counseling patient: Coding Diagnoses Syncope R55 Dysequilibrium R42 Secondary hypothyroidism E03.8 Neuropathy G62.9
[2023-02-17] MEDS: UMECLIDINIUM/VILANTEROL 62.5/25MCG 7 PUFFS/INHALER INH SCH (09:22)
[2023-02-17] MEDS: ASPIRIN 81 MG ECTAB PO SCH (09:22)
[2023-02-17] MEDS: ATORVASTATIN 20 MG TAB PO SCH (09:23)
[2023-02-17] MEDS: HEPARIN SOD 5,000 UNIT/0.5 ML VIAL SQ SCH (09:23)
--- NOTE | 2023-02-17 16:17 | Discharge Summary ---
Date of Service February 17, 2023 Admission HPI Per Admitting Provider Gayle is an 87yo F who presents with syncope. Pt had one episode of suspected orthostatic syncope last week, had a second episode of syncope today after she had a headache which resolved on its own earlier in the morning. She reports she was riding in the car with her family, when she felt flushed and lightheaded. Patient then went stiff and was with urinary incontinence and vomiting, and had several episodes of unresponsiveness as noted by family members. She was sitting during this episode. She was amnesic to the episode, and had mild speech slurring following. Per ER: EKG on admission shows normal sinus rhythm, rate 66, left bundle branch block, no ST segment changes, QTc 463. No change from prior, left bundle branch block was not known Past episodes syncope/near syncope followed with cardiology Dr. Rhodes as an outpatient. She had a loop recorder in the past without significant bradycardia, and pacemaker was not recommended. 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 Due to elevated resting blood pressure, her lisinopril was also resumed as it was previously held but a dose reduced to 10 mg Case was reviewed with Dr. Cole & ER. Due to hx of symptoms with event monitor and some atypical symptoms recommended for admission and monitoring. Per Pt & Daughter: Reports that they were out shopping, and Gayle was waiting in the car. When Gayle's daughter returned to the car Gayle was found in car, very stuff but no shaking. She was very stiff and unresponsive with an open mouth, did not respond to commands or off her speech. She did have an episode of urinary incontinence, and then vomited. After vomiting she slowly began to improve, but was significantly confused and weak following the initial episode which lasted about 15 minutes.. Pt reprots she was sitting in the car and remembers feeling a little off and lightheaded then woke up after. Pt and family reprot that this episode was much longer than her prior syncopal episodes. This episode is also very different in length and quality compared to her prior syncopal episodes Normally she passes out then comes around very quickly. This episode her mouth was open, body was stiff, and took much longer to come out. +urine incontinence but that is normal with episodes. Afterwards her daughter reports that Gayle seemed weak all over, and speech was slurred for at least 15 minutes before gradually improving memory is not normally affected after, this time it was. Denies chest pressure, chest pain, shortness of breath, or diffculty breathing Does always feels some tightness around her abdomen when she passes out, no recent change. Denies recent illnesses including cough, congestion, fever, chills, sweats, diarrhea, constipation, nausea. She reports that even though she found with this episode she is not currently nauseous. Denies melena/hematochezia/hematemesis Medical History: Reviewed Medications: Reviewed. Aspirin MWF --> Every day 'but I bruise so easy and my skin is so thin.' Surgical History: Reviewed Family history: Reviewed Allergies: Reviewed Social History: No tobacco/alcohol use Code Status: DNR/DNI, confirmed with patient and daughter at bedside Principal Diagnosis syncope possible seizure Discharge Exam Pt is somewhat hard of hearing no focal deficits, except for hearing Discharge Data Allergies Allergy/AdvReac Type Severity Reaction Status Date / Time latex Allergy Intermediate SEVERE Verified 12/14/22 11:11 ITCHING cephalexin Allergy Mild RASH Verified 12/14/22 11:11 Consultations 02/16/23 16:54 Consult Neurology, Dr Nicole- In my opinion, we could try empiric Keppra 500mg BID to see if the episodes stop, regardless of prior EEG results. There may be room to further augment her BP as well. There is low likelihood of causing harm with this strategy. Alternatively, we could do nothing given her history of these events and negative testing both during this visit and historically. I would otherwise leave it to her family/PCP to decide. Ordered Studies Chest X-Ray 02/15/23 13:04 XR chest 1V portable CLINICAL HISTORY: weakness COMPARISON STUDY: Chest radiograph August 30, 2022. FINDINGS: There is no pneumothorax or pleural effusion. Cardiomegaly is unchanged. No evidence for pulmonary edema. Mild bibasilar opacities are noted. Atelectasis is favored. IMPRESSION: 1. No acute cardiopulmonary findings. 2. Cardiomegaly without evidence for pulmonary edema. 2. Bibasilar opacities. Atelectasis is favored. ACT 112: Negative or not required by law. Electronically signed by: Oleksandr Napier M.D. 02/15/2023 1:[address] 02/15/23 13:15 CT OF THE HEAD WITHOUT CONTRAST CLINICAL HISTORY: Syncope. COMPARISON STUDY: Head CT June 14, 2022. MRI of the brain April 29, 2022. CT DOSE: 547.75 mGy.cm TECHNIQUE: Helical axial images of the head were obtained without IV contrast. Automated exposure control was utilized for the study. A dose lowering technique was utilized adhering to the principles of ALARA. FINDINGS: No acute intracranial hemorrhage, midline shift or mass effect is present. White matter hypodensities are unchanged and favor small vessel disease. The ventricular system is unremarkable. The basal cisterns are patent. No extra-axial collections are present. There are no findings to suggest acute dural sinus thrombosis or acute territorial infarct. No significant calvarial abnormalities are present. Visualized portions of the sinuses and mastoid air cells are clear. IMPRESSION: No acute intracranial findings. No change in appearance of the brain. Electronically signed by: Oleksandr Napier M.D. 02/15/2023 2:35 PM Brain MRI 02/16/23 09:00 MR brain seizure wo con CLINICAL HISTORY: ?seizure TECHNIQUE: Multiplanar and multisequence MR images of the brain were obtained prior to and following administration of gadolinium contrast. Comparison: Comparison is made to MRI brain 04/29/2022 FINDINGS: No abnormal restricted diffusion is identified. Foci of T2 and FLAIR hyperintensity are noted in the paraventricular areas consistent with chronic small vessel ischemic disease. Ex vacuo ventriculomegaly and sulcal enlargement is noted compatible with diffuse volume loss.No mass or abnormal enhancement is seen. There is no mass effect or midline shift. There is no evidence of acute intraparenchymal hemorrhage. No extra axial fluid collections are seen. The corpus callosum, pituitary gland, and cerebellar tonsils appear grossly unremarkable. High-resolution images of the temporal lobes do not demonstrate any signal abnormality. Flow voids of the major intracranial arterial vessels are identified. The imaged portions of the paranasal sinuses, mastoid air cells, and orbits are unremarkable. IMPRESSION: No acute abnormality. In particular, no edema in the temporal lobes bilaterally in this postictal patient. Electronically signed by: Jeff Mccollum M.D. 02/16/2023 3:41 PM Hospital Course (1) Syncope: Syncope, Episode while sitting in car, LOC but regained easily, CT head negative for acute changes, previous work up including cardiology etiologies ruled out No admitting ECG changes from baseline. 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 Secondary hypothyroidism, chronic and stable Continue Synthroid Hypertension, chronic unclear if stable mildly hypertensive at rest on admission, has had orthostatic symptoms with aggressive control in the past. Lisinopril reduced, encouraged po intake History of bradycardia On past evaluation no AV block/pauses were noted on telemetry review. Elevated troponion, no ACS symptoms, suspect demand ischemia in face of lower blood pressure suspected CKD 3, with DIA on presentation, improved Hypothyroidism chronic and stable Continue Synthroid CODE STATUS: DNR/DNI discussed with patient Total Time Total Time Spent Total Time Spent (In Minutes): It required greater than 30 minutes to prepare this patient for discharge, son notified at discharge Discharge Plan Discharge Items Patient Disposition: Home - Self-Care Reason For Visit: SYNCOPE ?SEIZURE. HX VBI Discharge Diagnosis: loss of consciousness possible seizure Condition on Discharge: Fair Activity: Resume your previous activity Non-emergency contact: Primary Care Provider Call non-emergency contact if: your symptoms worsen Follow-up/Referrals: Kory Wan, [Primary Care Provider] - Diet: Regular Addtl Attending Provider Instructions: Please be sure to keep yourself well hydrated especially as the weather warms up Please follow up with your family doctor in a week or less you are started on a new medicine to reduce the chances that these spells are seizures, please take twice a day and consider having your family doctor refer you to neurologist You have seen Dr Dixon in the past Pending Studies at Discharge: No Stand-Alone Forms: My [employer], Smoking Cessation Medications and DC Order Prescriptions: New levetiracetam [Keppra] 500 mg tablet 500 mg PO BID Qty: 60 5RF Continued fluocinonide 0.05 % cream 1 applic topical DAILY Patient Comments: Apply on the head for Psoriasis fluticasone propionate 50 mcg/actuation spray,suspension 1 - 2 spray intranasal DAILY Qty: 18.2 5RF diclofenac sodium 1 % gel See Rx Instructions .ROUTE .COMPLEX Qty: 300 1RF Dose Instruction: APPLY TOPICALLY 2G 4 TIMES A DAY NEEDED FOR PAIN Rx Instructions: APPLY TOPICALLY 2G 4 TIMES A DAY NEEDED FOR PAIN Anoro Ellipta 62.5-25 mcg/actuation blister with device 1 ea inhalation DAILY Qty: 60 5RF gabapentin 100 mg capsule 200 mg PO HS Qty: 60 5RF Rx Instructions: TAKE 2 CAPSULES BY MOUTH AT BEDTIME levothyroxine 75 mcg capsule 75 mcg PO DAILY Qty: 60 0RF cholecalciferol (vitamin D3) 125 mcg (5,000 unit) tablet 125 mcg PO DAILY albuterol sulfate 90 mcg/actuation HFA aerosol inhaler 2 puff inhalation Q4H PRN (Reason: Shortness Of Breath) Qty: 1 calcium carbonate [Calcium 600] 600 mg calcium (1,500 mg) tablet 1,200 mg PO DAILY Probiotic 3 billion cell capsule 6,000 mmu cells PO DAILY Rx Instructions: administer with a meal nystatin 100,000 unit/gram cream 1 applic topical DAILY PRN (Reason: fungal) PreserVision AREDS 4,296 mcg-226 mg-90 mg capsule 1 cap PO DAILY aspirin 81 mg tablet,delayed release (DR/EC) 81 mg PO DAILY Patient Comments: magnesium 250 mg tablet 250 mg PO DAILY Qty: 30 0RF Rx Instructions: OTC nitroglycerin [Nitrostat] 0.4 mg Tablet, Sublingual 0.4 mg sublingual UD PRN (Reason: chest pain) Qty: 1 0RF Rx Instructions: max 3 tabs in 15 minutes atorvastatin 20 mg tablet 20 mg PO 3XWK Rx Instructions: /Tuesday/Tuesday Azo Cranberry 250 mg Tablet,Chewable 250 mg PO BID Changed lisinopril 10 mg tablet 10 mg PO DAILY Qty: 180 3RF Discharge Orders: Discharge Order (Routine); Ordered 02/17/23 Ordered By: Christopher Kevin Admission Data Admit Date/Time: 02/15/23 19:28 Attending Provider: Christopher Kevin Admit Provider: Best Dutta Primary Care Provider: Kory Wan Other Providers: Best Dutta Coding Level of Care Code 34877 INP/OBS DISCH >30 MIN Diagnoses Syncope R55
== END 2023-02-17 16:43 | disposition home or self-care (01) ==
LOC: ED 12:45 → EDINP 12:45 → SUATTDRO 19:28 → 2E 21:35

== ENCOUNTER 2023-11-30 06:01 | Inpatient (IN) ==
--- NOTE | 2023-11-30 06:59 | Emergency Department Note ---
Impression & Plan CHF (congestive heart failure), Hypoxia ED Provider Note Diagnosis: Hypoxia, CHF Disposition: Admission CHIEF COMPLAINT: Dizziness HPI: Patient is a 88-year-old female presenting with complaint of dizziness. Patient describes the dizziness as a room spinning off-balance feeling. Patient states that she has gotten these episodes previously but has not had it occur since April of last year. Patient denies any syncope or near syncope. Patient denies any chest pain or shortness of breath. Patient states that the dizziness sensation occurs when she changes position or stands up. Patient states it has been ongoing for approximately 1 week's time but worse over the past 24 hours. Patient denies any other focal neurologic deficits. Patient is on 1 to 2 L nasal cannula currently upon arrival. Patient states she is felt a little more short of breath with walking but denies any infectious symptoms. PAST MEDICAL HISTORY: See Below PAST SURGICAL HISTORY: See Below SOCIAL HISTORY: See Below HOME MEDICATIONS: See Below ALLERGIES: See Below VITALS: See Below PHYSICAL EXAMINATION: GENERAL: Well appearing, well nourished, NAD, non-toxic. EYE EXAM: Normal conjunctiva. OROPHARYNX: Moist mucus membranes. Grossly normal dentition. NECK: Supple, LUNGS: Clear to auscultation. Normal chest wall mechanics. HEART: NSR ABDOMEN: Abdomen soft, non-tender, normo-active bowel sounds, no masses, no rebound or guarding BACK: No CVA TTP. SKIN: No rashes and no bruising. UPPER EXTREMITIES: Upper extremities are grossly normal LOWER EXTREMITIES: Grossly normal, no edema. NEURO EXAM: A&O x3,, normal speech, moves all 4 extremities, 5 out of 5 muscle strength upper and lower extremities bilaterally, Intact sensation upper and lower extremities bilaterally PSYCH: Cooperative MEDICAL DECISION MAKING: Reviewed external documents: History obtained from: Patient ER Course: Patient is a 88-year-old female presenting with feeling lightheaded which she describes as episodes of dizziness that are present with change of position and exerting herself. Patient states she has not had episodes similar to this in over 6 to 8 months time. Patient has been feeling more short of breath than usual. Patient requiring 2 L nasal cannula oxygen support which is not her baseline. Patient has a history upon reviewing patient's records of COPD and CHF. Patient is not on any diuretics per her medication list. Patient does not have any inflammatory marker elevations. Patient's viral panel is negative. Patient's chest x-ray does not show pneumonia. Patient's BNP is elevated at 700. Patient be given dose of Lasix and admitted to hospital service further treatment and evaluation Labs (independently interpreted) are significant for: Slightly elevated troponin x 2, BNP elevated Imaging results (independently interpreted): Chest x-ray without pneumonia present EKG interpretation (independently interpreted): Sinus rhythm no ST segment elevation or depression left bundle branch block Medications given: DuoNeb, Solu-Medrol, Lasix Consultants: Hospitalist service Triage Nursing notes reviewed and agree them. Vital Signs: reviewed and remarkable for: Hypoxia Past Med/Surg History Medical History (Updated 11/30/23 @ 12:06 by Norberto Felix DO) Chronic kidney disease, stage IV (severe) Hypothyroidism Hypomagnesemia UTI (urinary tract infection) Impaired fasting glucose Falls frequently Mitral regurgitation Cardiomyopathy Anemia UTI (urinary tract infection) Syncope (08/2022) Chest pain at rest Abnormal ECG Subclavian artery stenosis, right Chronic cerebral ischemia Vertebrobasilar insufficiency Vertebral artery stenosis Carotid stenosis, right Acute chest wall pain LBBB (left bundle branch block) Acute severe vertigo Pasteurella infection with bacteremia, 2nd to cat scratch and RUE cellulitis - 06/16 Episodic lightheadedness HFrEF (heart failure with reduced ejection fraction) EF 45-50% - 2020 echo CKD (chronic kidney disease), stage III COVID-19 09/2021 - required hospitalization Infection, Pasteurella Acute on chronic systolic heart failure Chronic kidney disease, stage IV (severe) Pseudogout of hand Septic arthritis of hand, right Gram-negative bacteremia Right arm cellulitis Situational anxiety ARF (acute renal failure) UTI (urinary tract infection) recurrent Balance problems Bradycardia Secondary hypothyroidism Nocturia Arthritis, multiple joint involvement COPD (chronic obstructive pulmonary disease) Syncope and collapse (05/15/14) Osteoporosis Hypercholesterolemia HTN (hypertension) Surgical History History of rotator cuff surgery Jul 2011--Dr. Whitten History of carpal tunnel surgery History of myringotomy History of inguinal hernia repair History of bunionectomy History of breast biopsy Hx of adenoidectomy Hx of tonsillectomy H/O: hysterectomy S/P appendectomy S/P cholecystectomy Family History Mother Alzheimer disease Stroke Father Emphysema, unspecified COPD (chronic obstructive pulmonary disease) Grandfather (Maternal) Colorectal cancer Uncle Prostate cancer Denies family history of Ovarian cancer Diabetes Coronary heart disease Heart disease Myocardial infarction Breast cancer Lung cancer Social History Smoking Status: Former smoker Tobacco Type: Cigarettes Age Started Using Tobacco: 23; Age Quit Using Tobacco: 61; Cigarettes Per Day: 1 ppd; Second Hand Exposure: No; Do You Dip or Chew Tobacco: No; Hx Alcohol Use: No Hx Substance Use: No Preferred Language: Chinese Communication Ability: Effective Visual Impairment: Limited Hearing Ability: Use of Hearing Aid Drier Belt Conveyor Required: No Beliefs That Will Affect Care: None marital status: Current Living Situation: Alone and Personal Care Facility Current Living Situation Comment: Patient lives in "independent living" apartment at [facility] current occupational 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[employer], 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 How many Children do You have: 2 Feels Safe at Home: Yes Childhood Exposure to Second-Hand Smoke: Yes Diet: regular caffeine: Yes Dental Care, Regularly: No Physical Activity Frequency: Does not Exercise Seatbelt Use: always Sunscreen Use: No Assistive Devices: Cane Allergies Allergies Allergy/AdvReac Type Severity Reaction Status Date / Time latex Allergy Intermediate SEVERE Verified 09/28/23 12:21 ITCHING cephalexin Allergy Mild RASH Verified 09/28/23 12:21 Home Meds Home Medications Medication Instructions Recorded Confirmed cholecalciferol (vitamin D3) 125 125 mcg PO DAILY 10/02/19 11/30/23 mcg (5,000 unit) tablet albuterol sulfate 90 mcg/actuation 2 puff inhalation Q4H PRN 04/10/21 11/30/23 aerosol inhaler Shortness Of Breath #1 g calcium carbonate 600 mg calcium 1,200 mg PO DAILY 06/16/21 11/30/23 (1,500 mg) tablet (Calcium) lactobacillus combination no.4 3 6,000 mmu cells PO DAILY 06/16/21 11/30/23 billion cell capsule (Probiotic) aspirin 81 mg tablet,delayed 81 mg PO DAILY 07/06/22 11/30/23 release vitamins A,C,L-sqhp-flfayu 4,296 1 cap PO DAILY 12/14/22 11/30/23 mcg-226 mg-90 mg capsule (PreserVision AREDS) cranberry fruit concentrate 250 mg 250 mg PO BID 02/15/23 11/30/23 chewable tablet (Azo Cranberry) carboxymethylcellulose sodium 1 % 1 drp ophthalmic (eye) BID 08/09/23 11/30/23 eye liquid gel drops (Refresh Liquigel) atorvastatin 20 mg tablet 20 mg PO 2XWK 11/30/23 11/30/23 diclofenac sodium 1 % topical gel 1 ea topical DIRECTED PRN Pain 11/30/23 11/30/23 umeclidinium 62.5 mcg-vilanterol 1 inh inhalation DAILY 11/30/23 11/30/23 25 mcg/actuation powdr for inhalation (Anoro Ellipta) Previous Rx's Medication Instructions Recorded magnesium 250 mg tablet 250 mg PO DAILY #30 tabs 10/09/21 fluticasone propionate 50 1 - 2 spray intranasal DAILY #18.2 02/05/22 mcg/actuation nasal mL spray,suspension nitroglycerin 0.4 mg sublingual 0.4 mg sublingual UD PRN chest 05/02/22 tablet (Nitrostat) pain #1 btl levothyroxine 75 mcg capsule 75 mcg PO DAILY #90 caps 04/13/23 lisinopril 10 mg tablet 10 mg PO DAILY #90 tabs 04/26/23 Results & Data (ED) Vital Signs Vital Signs - 24 hr 11/30/23 06:08 11/30/23 06:11 11/30/23 06:18 Temperature 36.5 C Temperature Source Oral Pulse Rate 78 85 Pulse Rate [Left Finger] Respiratory Rate 27 H Blood Pressure 140/96 Blood Pressure [Left Arm] Blood Pressure Mean 110 Blood Pressure Mean [Left Arm] Blood Pressure Position Lying Pulse Oximetry 97 97 Oxygen Delivery Method Nasal Cannula Nasal Cannula Oxygen Flow Rate 2 2 Sepsis Recent Fever Within 48 Hours No Sepsis New/Unexplained Change in Mental Status No Sepsis Action Taken by Nursing No Action Required 11/30/23 07:50 11/30/23 10:46 11/30/23 11:00 Temperature Temperature Source Pulse Rate 67 Pulse Rate [Left Finger] 88 77 Respiratory Rate 20 22 Blood Pressure Blood Pressure [Left Arm] 158/85 H 122/72 Blood Pressure Mean Blood Pressure Mean [Left Arm] 109 88 Blood Pressure Position Pulse Oximetry 98 96 Oxygen Delivery Method Nasal Cannula Nasal Cannula Oxygen Flow Rate 2 2 Sepsis Recent Fever Within 48 Hours Sepsis New/Unexplained Change in Mental Status Sepsis Action Taken by Nursing Laboratory Data 11/30/23 07:16 11/30/23 07:16 Lab Results 11/30/23 11/30/23 11/30/23 Range/Units 06:10 06:15 07:16 WBC Cancelled 8.47 RBC Cancelled 3.49 L Hgb Cancelled 10.8 L Hct Cancelled 34.0 L MCV Cancelled 97.4 MCH Cancelled 30.9 MCHC Cancelled 31.8 L RDW Std Deviation Cancelled 47.8 H RDW Coeff of Stiven Cancelled 13.3 Plt Count Cancelled 208 MPV Cancelled 10.2 Immature Gran % (Auto) Cancelled 0.4 Neut % (Auto) Cancelled 85.5 Lymph % (Auto) Cancelled 6.4 Pine % (Auto) Cancelled 5.5 Eos % (Auto) Cancelled 1.4 Baso % (Auto) Cancelled 0.8 Neut # (Auto) Cancelled 7.24 H Lymph # (Auto) Cancelled 0.54 L Pine # (Auto) Cancelled 0.47 Eos # (Auto) Cancelled 0.12 Baso # (Auto) Cancelled 0.07 Immature Gran # (Auto) Cancelled 0.03 Absolute Nucleated RBC Cancelled Nucleated RBC % (auto) Cancelled Neutrophils % (Manual) Cancelled Band Neutrophils % Cancelled Lymphocytes % (Manual) Cancelled Prolymphocyte % Cancelled Reactive Lymphs % (Man) Cancelled Monocytes % (Manual) Cancelled Eosinophils % (Manual) Cancelled Basophils % (Manual) Cancelled Metamyelocytes % (Man) Cancelled Myelocytes % (Man) Cancelled Promyelocytes % (Man) Cancelled Blast Cells % (Manual) Cancelled Plasma Cell % (Manual) Cancelled Other Cells % Cancelled Nucleated RBC % Cancelled Neutrophils # (Manual) Cancelled Band Neutrophils # Cancelled Total Absolute Neuts Cancelled Lymphocytes # (Manual) Cancelled Prolymphocyte # Cancelled Reactive Lymphs # Cancelled Total Abs Lymphocytes Cancelled Monocytes # (Manual) Cancelled Eosinophils # (Manual) Cancelled Basophils # (Manual) Cancelled Metamyelocytes # (Man) Cancelled Myelocytes # (Manual) Cancelled Promyelocytes # (Man) Cancelled Blast Cells # (Man) Cancelled Plasma Cell # (Manual) Cancelled Other Cells # Cancelled Nucleated RBCs # (Man) Cancelled Hypersegmented Neuts Cancelled Hyposegmented Neuts Cancelled Hypogranular Neuts Cancelled Large Granular Lymphs Cancelled # Lrg Granular Lymphs Cancelled Hairy Cells Cancelled Smudge Cells Cancelled Toxic Granulation Cancelled Toxic Vacuolation Cancelled Dohle Bodies Cancelled Carleen Rods Cancelled Platelet Estimate Cancelled Normal Hypogranular Platelets Cancelled Giant Platelets Cancelled Platelet Satelliting Cancelled RBC Morphology Cancelled Polychromasia Cancelled Hypochromasia Cancelled Poikilocytosis Cancelled Basophilic Stippling Cancelled Anisocytosis Cancelled Microcytosis Cancelled Macrocytosis Cancelled Spherocytes Cancelled Pappenheimer Bodies Cancelled Sickle Cells Cancelled Target Cells Cancelled Tear Drop Cells Cancelled Ovalocytes Cancelled Stomatocytes Cancelled [place] Bodies Cancelled Echinocytes Cancelled Acanthocytes (Spur) Cancelled Rouleaux Cancelled RBC Agglutinates Cancelled Schistocytes Cancelled Sezary Cell Cancelled Sodium Cancelled 138 Potassium Cancelled 4.2 Chloride Cancelled 104 Carbon Dioxide Cancelled 26 Anion Gap Cancelled 8 BUN Cancelled 25 H Creatinine Cancelled 1.27 H Est Cr Clr Drug Dosing Cancelled 27.9 Est GFR ( Amer) Cancelled 43.3 Est GFR (Non-Af Amer) Cancelled 37.4 BUN/Creatinine Ratio Cancelled 19.7 Glucose Cancelled 107 H Calcium Cancelled 8.8 Total Bilirubin Cancelled 0.9 AST Cancelled 16 ALT Cancelled 12 Alkaline Phosphatase Cancelled 56 Troponin I High Sens 44.3 H (0-14) pg/ml B-Natriuretic Peptide (0-100) pg/ml Total Protein Cancelled 6.9 Albumin Cancelled 3.6 Globulin Cancelled 3.3 Albumin/Globulin Ratio Cancelled 1.1 Urine Color Urine Appearance (Clear) Urine pH (4.5-7.5) Ur Specific [place] (1.000-1.030) Urine Protein (Negative) Urine Glucose (UA) (Negative) Urine Ketones (Negative) Urine Blood (Negative) Urine Nitrite (Negative) Urine Bilirubin (Negative) Urine Urobilinogen (Negative) Ur Leukocyte Esterase (Negative) Urine WBC (Auto) (0-5) /hpf Urine RBC (Auto) (0-4) /hpf U Hyaline Cast (Auto) (0-5) /lpf U Epithel Cells (Auto) (0-5) /lpf Urine Bacteria (Auto) (Negative) Adenovirus (PCR) Not Detected (NotDetected) B. pertussis DNA (PCR) Not Detected (NotDetected) B.parapertussis DNA PCR Not Detected (NotDetected) C. pneumoniae DNA (PCR) Not Detected (NotDetected) Coronavirus OC43 (PCR) Not Detected (NotDetected) Coronavirus HKU1 (PCR) Not Detected (NotDetected) Coronavirus 229E (PCR) Not Detected (NotDetected) SARS-CoV-2 (PCR) Not Detected (NotDetected) Coronavirus NL63 (PCR) Not Detected (NotDetected) Human Metapneumovir PCR Not Detected (NotDetected) Influenza Type A (PCR) Not Detected (NotDetected) Influenza Type B (PCR) Not Detected (NotDetected) M. pneumoniae (PCR) Not Detected (NotDetected) Parainfluenza 1 (PCR) Not Detected (NotDetected) Parainfluenza 2 (PCR) Not Detected (NotDetected) Parainfluenza 3 (PCR) Not Detected (NotDetected) Parainfluenza 4 (PCR) Not Detected (NotDetected) RSV (PCR) Not Detected (NotDetected) Entero/Rhino (PCR) Not Detected (NotDetected) Blood Parasites ID Cancelled 11/30/23 11/30/23 11/30/23 Range/Units 08:15 09:22 11:07 WBC RBC Hgb Hct MCV MCH MCHC RDW Std Deviation RDW Coeff of Stiven Plt Count MPV Immature Gran % (Auto) Neut % (Auto) Lymph % (Auto) Pine % (Auto) Eos % (Auto) Baso % (Auto) Neut # (Auto) Lymph # (Auto) Pine # (Auto) Eos # (Auto) Baso # (Auto) Immature Gran # (Auto) Absolute Nucleated RBC Nucleated RBC % (auto) Neutrophils % (Manual) Band Neutrophils % Lymphocytes % (Manual) Prolymphocyte % Reactive Lymphs % (Man) Monocytes % (Manual) Eosinophils % (Manual) Basophils % (Manual) Metamyelocytes % (Man) Myelocytes % (Man) Promyelocytes % (Man) Blast Cells % (Manual) Plasma Cell % (Manual) Other Cells % Nucleated RBC % Neutrophils # (Manual) Band Neutrophils # Total Absolute Neuts Lymphocytes # (Manual) Prolymphocyte # Reactive Lymphs # Total Abs Lymphocytes Monocytes # (Manual) Eosinophils # (Manual) Basophils # (Manual) Metamyelocytes # (Man) Myelocytes # (Manual) Promyelocytes # (Man) Blast Cells # (Man) Plasma Cell # (Manual) Other Cells # Nucleated RBCs # (Man) Hypersegmented Neuts Hyposegmented Neuts Hypogranular Neuts Large Granular Lymphs # Lrg Granular Lymphs Hairy Cells Smudge Cells Toxic Granulation Toxic Vacuolation Dohle Bodies Carleen Rods Platelet Estimate Hypogranular Platelets Giant Platelets Platelet Satelliting RBC Morphology Polychromasia Hypochromasia Poikilocytosis Basophilic Stippling Anisocytosis Microcytosis Macrocytosis Spherocytes Pappenheimer Bodies Sickle Cells Target Cells Tear Drop Cells Ovalocytes Stomatocytes [place] Bodies Echinocytes Acanthocytes (Spur) Rouleaux RBC Agglutinates Schistocytes Sezary Cell Sodium Potassium Chloride Carbon Dioxide Anion Gap BUN Creatinine Est Cr Clr Drug Dosing Est GFR ( Amer) Est GFR (Non-Af Amer) BUN/Creatinine Ratio Glucose Calcium Total Bilirubin AST ALT Alkaline Phosphatase Troponin I High Sens 39.0 H (0-14) pg/ml B-Natriuretic Peptide 746 H (0-100) pg/ml Total Protein Albumin Globulin Albumin/Globulin Ratio Urine Color Yellow Urine Appearance Clear (Clear) Urine pH 6.5 (4.5-7.5) Ur Specific [place] 1.012 (1.000-1.030) Urine Protein Negative (Negative) Urine Glucose (UA) Negative (Negative) Urine Ketones Negative (Negative) Urine Blood Negative (Negative) Urine Nitrite Negative (Negative) Urine Bilirubin Negative (Negative) Urine Urobilinogen Negative (Negative) Ur Leukocyte Esterase Trace H (Negative) Urine WBC (Auto) 1-5 (0-5) /hpf Urine RBC (Auto) 0-4 (0-4) /hpf U Hyaline Cast (Auto) 0 (0-5) /lpf U Epithel Cells (Auto) >30 H (0-5) /lpf Urine Bacteria (Auto) Negative (Negative) Adenovirus (PCR) (NotDetected) B. pertussis DNA (PCR) (NotDetected) B.parapertussis DNA PCR (NotDetected) C. pneumoniae DNA (PCR) (NotDetected) Coronavirus OC43 (PCR) (NotDetected) Coronavirus HKU1 (PCR) (NotDetected) Coronavirus 229E (PCR) (NotDetected) SARS-CoV-2 (PCR) (NotDetected) Coronavirus NL63 (PCR) (NotDetected) Human Metapneumovir PCR (NotDetected) Influenza Type A (PCR) (NotDetected) Influenza Type B (PCR) (NotDetected) M. pneumoniae (PCR) (NotDetected) Parainfluenza 1 (PCR) (NotDetected) Parainfluenza 2 (PCR) (NotDetected) Parainfluenza 3 (PCR) (NotDetected) Parainfluenza 4 (PCR) (NotDetected) RSV (PCR) (NotDetected) Entero/Rhino (PCR) (NotDetected) Blood Parasites ID Administered Medications Discontinued Medications Albuterol (Albut/Ipratrop 3mg/0.5mg Neb 3 Ml Vial) 3 ml NEB NOW STA; Protocol Stop: 11/30/23 11:22 Last Admin: 11/30/23 11:33 Dose: 3 ml Documented By: GALINA Sodium Chloride (Nss) 1,000 mls @ 999 mls/hr IV .Q1H1M ONE Stop: 11/30/23 07:53 Last Admin: 11/30/23 07:16 Dose: 999 mls/hr Documented By: GALINA Meclizine HCl (Meclizine Hcl 25 Mg Tab) 25 mg PO NOW STA Stop: 11/30/23 06:55 Last Admin: 11/30/23 07:38 Dose: 25 mg Documented By: GALINA Methylprednisolone (Methylprednisolone 125 Mg/2 Ml Vial) 125 mg IV NOW STA Stop: 11/30/23 11:22 Last Admin: 11/30/23 11:33 Dose: 125 mg Documented By: GALINA Imaging Data Radiologist's Impression: Head CT 11/30/23 06:53 CT SCAN OF THE BRAIN WITHOUT IV CONTRAST CLINICAL HISTORY: Dizziness. COMPARISON STUDY: CT of the brain dated 02/24/2023. TECHNIQUE: Unenhanced axial CT scan of the brain is performed from the vertex to the skull base. A dose lowering technique was utilized adhering to the principles of ALARA. CT DOSE: 625.8 mGy.cm FINDINGS: Brain parenchyma: There is age-related involutional change noting moderate to advanced subcortical and periventricular microangiopathic disease. There is no hemorrhage, mass effect, or evidence of acute territorial ischemia by CT criteria. Clarke-white matter differentiation is preserved. No extra-axial fluid collection is seen. Mineralization is noted in the basal ganglia. Ventricles, sulci, cisterns: Prominent secondary to involutional change. Intracranial vasculature: There is atherosclerotic calcification of the cavernous carotid and vertebral arteries. Calvarium: Unremarkable. Sinuses and mastoids: The paranasal sinuses are clear. The mastoid air cells are well pneumatized. Orbits: The bony orbits are grossly intact. There are bilateral ocular lens implants. IMPRESSION: There is no hemorrhage, mass effect, or evidence of acute territorial ischemia by CT criteria. ACT 112: Negative or not required by law. Electronically signed by: Aneudy Schneider M.D. 11/30/2023 7:14 AM Chest X-Ray 11/30/23 09:28 SINGLE VIEW CHEST CLINICAL HISTORY: Dyspnea FINDINGS: An AP, portable, upright chest radiograph is compared to study dated 02/24/2023. The examination is degraded by portable technique and patient rotation. The heart is enlarged and noting atherosclerotic calcification of the thoracic aorta. There is mild pulmonary vascular congestion. Emphysema and chronic interstitial thickening is similar to previous. There is bibasilar scarring/atelectasis. No large pleural effusion or no pneumothorax is seen. The skeletal structures are osteopenic. The bony thorax is grossly intact. Degenerative change is noted in the shoulders and spine. IMPRESSION: 1. Cardiomegaly and emphysema with mild pulmonary vascular congestion. 2. No airspace consolidation or large pleural effusion is identified ACT 112: Negative or not required by law. Electronically signed by: Aneudy Schneider M.D. 11/30/2023 10:12 AM Discharge Plan Visit Data Chief Complaint: Dizziness Stated Complaint: DIZZY, NAUSEA, SOB ED Provider: Norberto Felix Discharge Problem: CHF (congestive heart failure), Hypoxia Forms Stand Alone Forms: [facility] ([facility]) Prescriptions Prescriptions: No Action fluticasone propionate 50 mcg/actuation spray,suspension 1 - 2 spray intranasal DAILY Qty: 18.2 5RF levothyroxine 75 mcg capsule 75 mcg PO DAILY Qty: 90 2RF cholecalciferol (vitamin D3) 125 mcg (5,000 unit) tablet 125 mcg PO DAILY albuterol sulfate 90 mcg/actuation HFA aerosol inhaler 2 puff inhalation Q4H PRN (Reason: Shortness Of Breath) Qty: 1 calcium carbonate [Calcium 600] 600 mg calcium (1,500 mg) tablet 1,200 mg PO DAILY Probiotic 3 billion cell capsule 6,000 mmu cells PO DAILY Rx Instructions: administer with a meal lisinopril 10 mg tablet 10 mg PO DAILY Qty: 90 3RF carboxymethylcellulose sodium [Refresh Liquigel] 1 % drops, liquid gel 1 drp ophthalmic (eye) BID PreserVision AREDS 4,296 mcg-226 mg-90 mg capsule 1 cap PO DAILY aspirin 81 mg tablet,delayed release (DR/EC) 81 mg PO DAILY Patient Comments: magnesium 250 mg tablet 250 mg PO DAILY Qty: 30 0RF Rx Instructions: OTC nitroglycerin [Nitrostat] 0.4 mg Tablet, Sublingual 0.4 mg sublingual UD PRN (Reason: chest pain) Qty: 1 0RF Rx Instructions: max 3 tabs in 15 minutes Azo Cranberry 250 mg Tablet,Chewable 250 mg PO BID atorvastatin 20 mg tablet 20 mg PO 2XWK Rx Instructions: Mon/Fri diclofenac sodium 1 % gel 1 ea topical DIRECTED PRN (Reason: Pain) Rx Instructions: APPLY TOPICALLY 2G 4 TIMES A DAY NEEDED FOR PAIN Anoro Ellipta 62.5-25 mcg/actuation blister with device 1 inh inhalation DAILY Rx Instructions: INHALE ONCE DAILY Referrals Referrals: Kory Wan, [Primary Care Provider] -
[2023-11-30] MEDS: SODIUM CHLORIDE 0.9% 1,000 ML IV ONE (07:16)
--- NOTE | 2023-11-30 07:16 | CT Scan Report ---
CT SCAN OF THE BRAIN WITHOUT IV CONTRAST CLINICAL HISTORY: Dizziness. COMPARISON STUDY: CT of the brain dated 02/24/2023. TECHNIQUE: Unenhanced axial CT scan of the brain is performed from the vertex to the skull base. A do se lowering technique was utilized adhering to the principles of ALARA. CT DOSE: 625.8 mGy.cm FINDINGS: Brain parenchyma: There is age-related involutional change noting moderate to advanced subcortical an d periventricular microangiopathic disease. There is no hemorrhage, mass effect, or evidence of acute territorial ischemia by CT criteria. Clarke-white matter differentiation is preserved. No extra-axial fluid collection is seen. Mineralization is noted in the basal ganglia. Ventricles, sulci, cisterns: Prominent secondary to involutional change. Intracranial vasculature: There is atherosclerotic calcification of the cavernous carotid and vertebr al arteries. Calvarium: Unremarkable. Sinuses and mastoids: The paranasal sinuses are clear. The mastoid air cells are well pneumatized. Orbits: The bony orbits are grossly intact. There are bilateral ocular lens implants. IMPRESSION: There is no hemorrhage, mass effect, or evidence of acute territorial ischemia by CT jenae tyson. ACT 112: Negative or not required by law. Electronically signed by: Aneudy Schneider M.D. 11/30/2023 7:14 AM
[2023-11-30 07:28] LABS: Adenovirus PCR Not Detected (NotDetected); Bordetella parapertussis PCR Not Detected (NotDetected); Bordetella pertussis PCR Not Detected (NotDetected); Chlamydia pneumoniae PCR Not Detected (NotDetected); Coronavirus 229E PCR Not Detected (NotDetected); Coronavirus CoV-2 (COVID19)PCR Not Detected (NotDetected); Coronavirus HKU1 PCR Not Detected (NotDetected); Coronavirus NL63 PCR Not Detected (NotDetected); Coronavirus OC43PCR Not Detected (NotDetected); Human Metapneumovirus PCR Not Detected (NotDetected); Influenza A PCR Not Detected (NotDetected); Influenza B PCR Not Detected (NotDetected); Mycoplasma pneumoniae PCR Not Detected (NotDetected); Parainfluenza Virus 1 PCR Not Detected (NotDetected); Parainfluenza Virus 2 PCR Not Detected (NotDetected); Parainfluenza Virus 3 PCR Not Detected (NotDetected); Parainfluenza Virus 4 PCR Not Detected (NotDetected); Respiratory Syncytial VirusPCR Not Detected (NotDetected); Rhinovirus/Enterovirus PCR Not Detected (NotDetected)
[2023-11-30] MEDS: MECLIZINE HCL 25 MG TAB PO STA (07:38)
[2023-11-30 07:56] LABS: Albumin Globulin Ratio 1.1 (0.9-2); Albumin Level 3.6 gm/dl (3.4-5.0); BUN Creatinine Ratio 19.7 (10-20); Bilirubin,Total 0.9 mg/dl (0.2-1.0); Calcium 8.8 mg/dl (8.6-10.3); Creatinine Clr Calc Pharmacy 27.9 ml/min; Est GFR (African American) 43.3 ml/min; Est GFR (Non-African American) 37.4 ml/min; Globulin 3.3 gm/dl (2.5-4.0); Potassium 4.2 mmol/L (3.5-5.1); Total Protein 6.9 gm/dl (6.0-8.3)
[2023-11-30 08:01] LABS: Basophils # (auto) 0.07 K/uL (0.00-0.20); Basophils % (auto) 0.8 %; Eosinophils # (auto) 0.12 K/uL (0.00-0.50); Eosinophils % (auto) 1.4 %; Hemoglobin 10.8 g/dl (12.0-16.0); Immature Granulocytes # (auto) 0.03 K/uL (0.01-0.20); Immature Granulocytes % (auto) 0.4 %; Lymphocytes # (auto) 0.54 K/uL (1.20-3.40); Lymphocytes % (auto) 6.4 %; Mean Corpuscular Hemoglobin 30.9 pg (25.0-34.0); Mean Corpuscular Hgb Conc 31.8 g/dL (32.0-36.0); Mean Corpuscular Volume 97.4 fL (80.0-100.0); Mean Platelet Volume 10.2 fL (9.4-12.4); Monocytes # (auto) 0.47 K/uL (0.11-0.59); Monocytes % (auto) 5.5 %; Neutrophils # (auto) 7.24 K/uL (1.40-6.50); Neutrophils % (auto) 85.5 %; Platelet Count 208 K/uL (130-400); Platelet Estimate Normal (Normal); RDW Coefficient of Variation 13.3 % (11.5-14.5); RDW Standard Deviation 47.8 fL (36.4-46.3); Red Blood Count 3.49 M/uL (4.20-5.40); White Blood Count 8.47 K/ul (4.8-10.8)
--- NOTE | 2023-11-30 08:15 | Electrocardiogram Report ---
Test Reason : Blood Pressure : / mmHG Vent. Rate : 083 BPM Atrial Rate : 083 BPM P-R Int : 160 ms QRS Dur : 134 ms QT Int : 426 ms P-R-T Axes : 085 -36 105 degrees QTc Int : 500 ms Sinus rhythm with Premature supraventricular complexes Left axis deviation Left bundle branch block Abnormal ECG When compared with ECG of 24-FEB-2023 11:19, Premature supraventricular complexes are now Present Confirmed by Yusef Rhodes ([id number]) on 11/30/2023 8:15:30 AM Referred By: Confirmed By:Yusef Rhodes
[2023-11-30 09:43] LABS: Appearance Urine Clear (Clear); Bacteria Urine Automated Negative (Negative); Bilirubin Urine Negative (Negative); Blood Urine Negative (Negative); Cast Urine Automated 0 /lpf (0-5); Color Urine Yellow; Epithelial Cell Urine Auto >30 /lpf (0-5); Glucose Urine UA Negative (Negative); Ketones Urine Negative (Negative); Leukocyte Esterase Urine Trace (Negative); Nitrite Urine Negative (Negative); Protein Urine Negative (Negative); RBC Urine Automated 0-4 /hpf (0-4); Specific Gravity Urine 1.012 (1.000-1.030); Urobilinogen Urine Negative (Negative); pH Urine 6.5 (4.5-7.5)
--- NOTE | 2023-11-30 10:13 | XRay Report ---
SINGLE VIEW CHEST CLINICAL HISTORY: Dyspnea FINDINGS: An AP, portable, upright chest radiograph is compared to study dated 02/24/2023. The examinat ion is degraded by portable technique and patient rotation. The heart is enlarged and noting atheros clerotic calcification of the thoracic aorta. There is mild pulmonary vascular congestion. Emphysema and chronic interstitial thickening is similar to previous. There is bibasilar scarring/atelectasis. No large pleural effusion or no pneumothorax is seen. The skeletal structures are osteopenic. The bon y thorax is grossly intact. Degenerative change is noted in the shoulders and spine. IMPRESSION: 1. Cardiomegaly and emphysema with mild pulmonary vascular congestion. 2. No airspace consolidation or large pleural effusion is identified ACT 112: Negative or not required by law. Electronically signed by: Aneudy Schneider M.D. 11/30/2023 10:12 AM
[2023-11-30] MEDS: methylPREDNISolone 125 MG/2 ML VIAL IV STA (11:33)
[2023-11-30] MEDS: ALBUT/IPRATROP 3MG/0.5MG NEB 3 ML VIAL NEB STA (11:33)
[2023-11-30] MEDS ORDERED: ACETAMINOPHEN 325 MG TAB PO PRN (12:14)
--- NOTE | 2023-11-30 12:39 | History & Physical Report ---
Date of Service November 30, 2023 Assessment & Plan (1) CHF (congestive heart failure): Plan: Assessment: 1. Acute decompensated congestive heart failure last echo was last summer EF was 45 to 50%. She received 1 dose of IV Lasix. Will see how she responds to that she has no peripheral edema and no JVD. She does have pulmonary vascular congestion on chest x-ray. Will obtain an echocardiogram we have consulted cardiology. 2. Near syncope. She has been having near syncope and syncope for the last many months. She has a cardiac loop recorder implanted. We have consulted cardiology for interrogation and further input. 3. Possible left thyroid nodule on exam. Thyroid ultrasound ordered. This is in the setting of hypothyroidism she is on replacement therapy continue. 4. CKD stage III-IV. Creatinine stable at 1.2. 5. Anemia of chronic disease monitor carefully. Hemoglobin 10.8 g/dL 6. Elevated troponin with a history of chronic troponinemia. Nonacute EKG we will check a repeat troponin. 7. History of subclavian artery stenosis right-sided. 8. History of vertebral artery stenosis with vertebrobasilar insufficiency. 9. History of vertigo. 10. History of UTIs recurrent. Urinalysis negative for infection today 11. History of COPD without acute exacerbation. 12. History of hypertension continue home meds. 13. Dyslipidemia continue home meds. Plan: As described above. Please refer to orders for further planning. History of Present Illness Chief Complaint: Near syncope shortness of breath with exertion Primary Care Provider: Kory Wan, DO This is a pleasant 88-year-old female who had a history of near syncope earlier today as well as increasing shortness of breath with exertion over the last few days. She has had multiple syncopal episodes over the last many months. She has a cardiac loop recorder implanted has been following with cardiology. The patient follows with [facility] cardiology group Today she presents with the above complaints. Chest x-ray showed pulmonary vascular congestion, BNP was elevated greater than 700. Troponin was chron ically elevated in the 30s. The patient received IV Lasix and some nebulizer treatments. We were called to admit the patient for decompensated heart failure. Allergies Allergy/AdvReac Type Severity Reaction Status Date / Time latex Allergy Intermediate SEVERE Verified 09/28/23 12:21 ITCHING cephalexin Allergy Mild RASH Verified 09/28/23 12:21 Home Medications Medication Instructions Recorded Confirmed Type cholecalciferol (vitamin D3) 125 125 mcg PO DAILY 10/02/19 11/30/23 History mcg (5,000 unit) tablet albuterol sulfate 90 mcg/actuation 2 puff inhalation Q4H PRN 04/10/21 11/30/23 History aerosol inhaler Shortness Of Breath #1 g calcium carbonate 600 mg calcium 1,200 mg PO DAILY 06/16/21 11/30/23 History (1,500 mg) tablet (Calcium) lactobacillus combination no.4 3 6,000 mmu cells PO DAILY 06/16/21 11/30/23 History billion cell capsule (Probiotic) magnesium 250 mg tablet 250 mg PO DAILY #30 tabs 10/09/21 11/30/23 Rx fluticasone propionate 50 1 - 2 spray intranasal DAILY #18.2 02/05/22 11/30/23 Rx mcg/actuation nasal mL spray,suspension nitroglycerin 0.4 mg sublingual 0.4 mg sublingual UD PRN chest 05/02/22 11/30/23 Rx tablet (Nitrostat) pain #1 btl aspirin 81 mg tablet,delayed 81 mg PO DAILY 07/06/22 11/30/23 History release vitamins A,C,T-zstx-wifzio 4,296 1 cap PO DAILY 12/14/22 11/30/23 History mcg-226 mg-90 mg capsule (PreserVision AREDS) cranberry fruit concentrate 250 mg 250 mg PO BID 02/15/23 11/30/23 History chewable tablet (Azo Cranberry) levothyroxine 75 mcg capsule 75 mcg PO DAILY #90 caps 04/13/23 11/30/23 Rx lisinopril 10 mg tablet 10 mg PO DAILY #90 tabs 04/26/23 11/30/23 Rx carboxymethylcellulose sodium 1 % 1 drp ophthalmic (eye) BID 08/09/23 11/30/23 History eye liquid gel drops (Refresh Liquigel) atorvastatin 20 mg tablet 20 mg PO 2XWK 11/30/23 11/30/23 History diclofenac sodium 1 % topical gel 1 ea topical DIRECTED PRN Pain 11/30/23 11/30/23 History umeclidinium 62.5 mcg-vilanterol 1 inh inhalation DAILY 11/30/23 11/30/23 History 25 mcg/actuation powdr for inhalation (Anoro Ellipta) Past Med/Surg History Medical History (Updated 11/30/23 @ 12:06 by Norberto Felix DO) Chronic kidney disease, stage IV (severe) Hypothyroidism Hypomagnesemia UTI (urinary tract infection) Impaired fasting glucose Falls frequently Mitral regurgitation Cardiomyopathy Anemia UTI (urinary tract infection) Syncope (08/2022) Chest pain at rest Abnormal ECG Subclavian artery stenosis, right Chronic cerebral ischemia Vertebrobasilar insufficiency Vertebral artery stenosis Carotid stenosis, right Acute chest wall pain LBBB (left bundle branch block) Acute severe vertigo Pasteurella infection with bacteremia, 2nd to cat scratch and RUE cellulitis - 06/16 Episodic lightheadedness HFrEF (heart failure with reduced ejection fraction) EF 45-50% - 2020 echo CKD (chronic kidney disease), stage III COVID-19 09/2021 - required hospitalization Infection, Pasteurella Acute on chronic systolic heart failure Chronic kidney disease, stage IV (severe) Pseudogout of hand Septic arthritis of hand, right Gram-negative bacteremia Right arm cellulitis Situational anxiety ARF (acute renal failure) UTI (urinary tract infection) recurrent Balance problems Bradycardia Secondary hypothyroidism Nocturia Arthritis, multiple joint involvement COPD (chronic obstructive pulmonary disease) Syncope and collapse (05/15/14) Osteoporosis Hypercholesterolemia HTN (hypertension) Surgical History History of rotator cuff surgery Jul 2011--Dr. Whitten History of carpal tunnel surgery History of myringotomy History of inguinal hernia repair History of bunionectomy History of breast biopsy Hx of adenoidectomy Hx of tonsillectomy H/O: hysterectomy S/P appendectomy S/P cholecystectomy Family History Mother Alzheimer disease Stroke Father Emphysema, unspecified COPD (chronic obstructive pulmonary disease) Grandfather (Maternal) Colorectal cancer Uncle Prostate cancer Denies family history of Ovarian cancer Diabetes Coronary heart disease Heart disease Myocardial infarction Breast cancer Lung cancer Social History Smoking Status: Former smoker Tobacco Type: Cigarettes Age Started Using Tobacco: 23; Age Quit Using Tobacco: 61; Cigarettes Per Day: 1 ppd; Second Hand Exposure: No; Do You Dip or Chew Tobacco: No; Hx Alcohol Use: No Hx Substance Use: No Preferred Language: Georgian Communication Ability: Effective Visual Impairment: Limited Hearing Ability: Use of Hearing Aid Switch Technician Required: No Beliefs That Will Affect Care: None marital status: Current Living Situation: Alone and Personal Care Facility Current Living Situation Comment: Patient lives in "independent living" apartment at [facility] current occupational 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 Physical Exam Physical Exam: In General: In general 88-year-old female who is hard of hearing but otherwise is alert and oriented x 3 and interacts appropriately. She denies symptomatology at rest at this time. HEENT: Normocephalic atraumatic pupils are equal round and reactive to light bilaterally. No scleral icterus no conjunctival injection external auditory canals are patent septum is in the midline nose is without discharge oral mucosa is pink and moist without lesion. NECK: Supple no rigidity no lymphadenopathy no thyromegaly no carotid bruits no JVD. Possible thyroid nodule palpable in the left thyroid gland. The patient denies any dysphagia or globus sensation. HEART: Regular rate and rhythm I do not appreciate any ectopy or rub. There is a faint 2 out of 6 systolic ejection murmur at the right sternal border LUNGS: Clear but diminished to auscultation bilaterally and anteriorly with no evidence of adventitious sounds/wheezes rales or rhonchi. ABDOMEN: Soft nontender, no rebound, no peritoneal signs, positive bowel sounds, no appreciable organomegaly. EXTREMITIES: Intact, no peripheral cyanosis, clubbing or edema. Strength is 5 out of 5 in extremities x4, no pathological reflexes. Mild varicose veins bilaterally no venous cord palpable NEUROLOGICAL: Cranial nerves II through XII are grossly intact with no focal deficit elicited upon examination. No tremor. Results & Data Results & Data Vital Signs (Past 12 Hours) Vital Signs Temp Pulse Pulse Resp BP BP Pulse Ox 11/30/23 11:00 77 22 122/72 96 11/30/23 10:46 67 11/30/23 07:50 88 20 158/85 H 98 11/30/23 06:18 97 11/30/23 06:11 85 11/30/23 06:08 36.5 C 78 27 H 140/96 97 O2 Del Method O2 Flow Rate 11/30/23 11:00 Nasal Cannula 2 11/30/23 10:46 11/30/23 07:50 Nasal Cannula 2 11/30/23 06:18 Nasal Cannula 2 11/30/23 06:11 11/30/23 06:08 Nasal Cannula 2 Code Status & VTE Plan Code Status Full code-I personally discussed with the patient today VTE Prophylaxis Plan VTE Prophylaxis will be ordered: Yes PG Care Time/CCT Total # of Minutes Spent Total Time Spent with Patient: Total time spent is greater than 50% in coordination of care (as documented) at patient's floor/unit and/or counseling patient: Coding Level of Care Code 62347 INT INP/OBS CARE 3/75MIN Diagnoses CHF (congestive heart failure) I50.9
[2023-11-30] MEDS: FUROSEMIDE 40 MG/4 ML VIAL IV ONE (13:05)
--- NOTE | 2023-11-30 14:03 | Ultrasound Report ---
US thyroid CLINICAL HISTORY: 88 years-old Female with ? nodule. Screening study in a patient with possible thyr oid disease COMPARISON: CT cervical spine 02/24/2023 TECHNIQUE: Multiple real time sonographic images of the thyroid were obtained accessing faria scale ap pearance and color doppler flow. FINDINGS: MEASUREMENTS: Right lobe: 3.3 x 1.5 x 1.2 cm Left lobe: 2.8 x 1.1 x 0.8 cm Isthmus: 0.1 cm PARENCHYMA: The thyroid parenchymal echotexture is homogeneous. NODULES: No discrete nodules are appreciated. IMPRESSION: Unremarkable thyroid ultrasound. ACT 112: Negative or not required by law. The above report was generated using voice recognition software. It may contain grammatical, syntax o r spelling errors. Electronically signed by: Chema Salcedo M.D. 11/30/2023 2:02 PM
[2023-11-30] MEDS ORDERED: ALBUTEROL HFA 8 GM INHALER INH PRN (15:29)
[2023-11-30] MEDS ORDERED: NITROGLYCERIN SL 0.4 MG/TAB TAB SL PRN (15:29)
--- NOTE | 2023-11-30 16:31 | XCELERA ---
[id number]
--- NOTE | 2023-11-30 18:08 | Cardiology Consultation ---
Date of Consultation November 30, 2023 Assessment & Plan (1) Near syncope: (2) Cardiomyopathy: (3) Moderate mitral regurgitation: Plan As in the past, the etiology of her current near syncopal episode remains unclear. She has chronic disequilibrium with vertebrobasilar insufficiency, which may play a prominent role. Although orthostasis was a consideration in the past, this has never been demonstrated to be a factor. She has had a loop recorder in since April 2022, there have been no pauses or dysrhythmias noted since that time on routine monitoring. She has had further syncopal episodes during this time without evidence of pauses or dysrhythmia. Will interrogate her device tomorrow, but as in the past, yield likely to be low. There was a question of seizure disorder as a cause for her recurrent syncope and consideration of anticonvulsant therapy, but she has chosen not to pursue this avenue. She does not appear obviously volume overloaded, her weight has been stable, neck veins suggest only mild hypervolemia, chest x-ray is fairly unimpressive, and BNP is nonspecific (may represent her progressive LV systolic decline and valvular disease). She did receive a dose of IV Lasix in the ER, will be useful to monitor the effects to see if she feels better (suggesting a component of heart failure) or worse (suggesting orthostasis/volume depletion) or no different (suggesting alternative explanation for her symptoms). She had a pre-existing cardiomyopathy, current echocardiogram suggests that over the past 2 years this has progressed, but to my knowledge she has never been hospitalized for heart failure and she has not noted symptoms of heart failure during any of her outpatient visits with me over the years. She is not routinely on any diuretic. Have been reluctant to utilize guideline directed medical therapy in the past since her ejection fraction was only mildly reduced and there was great concern over potential orthostasis. Will reevaluate the role of vasoactive medications beyond her 10 mg of lisinopril once her current status becomes more clear. No immediate recommendations, observe overnight on telemetry and interrogate implantable loop recorder in the morning. Further recommendations based upon her clinical course overnight in response to IV diuretic. History of Present Illness Reason for Consultation: ?CHF, Near Syncope - has loop recorder Requesting Physician: Kris Lowe, PhD, DO Attending Physician: Kris Lowe, PhD, DO History of Present Illness 88-year-old woman with history of significant vascular disease (carotid, vertebral, subclavian stenosis), chronic disequilibrium secondary to vertebrobasilar insufficiency, chronic kidney disease stage III, and history of bradycardia, but no known coronary artery disease, who has had near syncope of uncertain etiology recurring over the past several years, presents to the ER today with another episode of near syncope. Patient known to me from our outpatient cardiology encounters. She felt well until yesterday morning when she was fatigued upon awakening, during the day she noted some dyspnea with exertion and she slept poorly last night. However, she denies any orthopnea, PND, weight change (varying by no more than a pound either way), or leg edema. She did not note the "bandlike" upper abdominal discomfort she had noted at times in the past. No chest pain, subjective palpitations, diaphoresis, or loss of consciousness. ER evaluation shows normal hemodynamics and oxygenation. ECG showed sinus rhythm with PACs, rate 83 bpm, chronic left bundle branch block. Compared with prior, PACs are new, otherwise no change. Chest x-ray read as emphysema with mild pulmonary vascular congestion, to my eye compared with the February 2023 study the vasculature is somewhat more pronounced but there is no obvious pulmonary edema. Hemoglobin 10.8 with normal white count and platelet count. Normal electrolytes with creatinine of 1.27 (recent baseline 1.531.82) Troponin values 42, 39, 44. BNP 746 (prior 365). Echocardiogram showed EF 30 to 35% with moderate mitral regurgitation and moderate pulmonary hypertension, moderately dilated IVC. Compared with 2021 study, LV systolic function has modestly declined, mild increase in mitral regurgitation, dilated IVC now seen. At the time of my evaluation this evening, she was anxious about her prior episode of near syncope, but she felt well at rest in the ER. No chest pain, dyspnea, or lightheadedness currently. Allergies Allergy/AdvReac Type Severity Reaction Status Date / Time latex Allergy Intermediate SEVERE Verified 09/28/23 12:21 ITCHING cephalexin Allergy Mild RASH Verified 09/28/23 12:21 Home Medications Medication Instructions Recorded Confirmed Type cholecalciferol (vitamin D3) 125 125 mcg PO DAILY 10/02/19 11/30/23 History mcg (5,000 unit) tablet albuterol sulfate 90 mcg/actuation 2 puff inhalation Q4H PRN 04/10/21 11/30/23 History aerosol inhaler Shortness Of Breath #1 g calcium carbonate 600 mg calcium 1,200 mg PO DAILY 06/16/21 11/30/23 History (1,500 mg) tablet (Calcium) lactobacillus combination no.4 3 6,000 mmu cells PO DAILY 06/16/21 11/30/23 History billion cell capsule (Probiotic) magnesium 250 mg tablet 250 mg PO DAILY #30 tabs 10/09/21 11/30/23 Rx fluticasone propionate 50 1 - 2 spray intranasal DAILY #18.2 02/05/22 11/30/23 Rx mcg/actuation nasal mL spray,suspension nitroglycerin 0.4 mg sublingual 0.4 mg sublingual UD PRN chest 05/02/22 11/30/23 Rx tablet (Nitrostat) pain #1 btl aspirin 81 mg tablet,delayed 81 mg PO DAILY 07/06/22 11/30/23 History release vitamins A,C,F-ceql-examir 4,296 1 cap PO DAILY 12/14/22 11/30/23 History mcg-226 mg-90 mg capsule (PreserVision AREDS) cranberry fruit concentrate 250 mg 250 mg PO BID 02/15/23 11/30/23 History chewable tablet (Azo Cranberry) levothyroxine 75 mcg capsule 75 mcg PO DAILY #90 caps 04/13/23 11/30/23 Rx lisinopril 10 mg tablet 10 mg PO DAILY #90 tabs 04/26/23 11/30/23 Rx carboxymethylcellulose sodium 1 % 1 drp ophthalmic (eye) BID 08/09/23 11/30/23 History eye liquid gel drops (Refresh Liquigel) atorvastatin 20 mg tablet 20 mg PO 2XWK 11/30/23 11/30/23 History diclofenac sodium 1 % topical gel 1 ea topical DIRECTED PRN Pain 11/30/23 11/30/23 History umeclidinium 62.5 mcg-vilanterol 1 inh inhalation DAILY 11/30/23 11/30/23 History 25 mcg/actuation powdr for inhalation (Anoro Ellipta) Patient History Medical History (Updated 11/30/23 @ 18:22 by Yusef Rhodes MD) Cardiomyopathy Chronic kidney disease, stage IV (severe) Hypothyroidism Hypomagnesemia UTI (urinary tract infection) Impaired fasting glucose Falls frequently Mitral regurgitation Anemia UTI (urinary tract infection) Syncope (08/2022) Chest pain at rest Abnormal ECG Subclavian artery stenosis, right Chronic cerebral ischemia Vertebrobasilar insufficiency Vertebral artery stenosis Carotid stenosis, right Acute chest wall pain LBBB (left bundle branch block) Acute severe vertigo Pasteurella infection with bacteremia, 2nd to cat scratch and RUE cellulitis - 06/16 Episodic lightheadedness HFrEF (heart failure with reduced ejection fraction) EF 45-50% - 2020 echo CKD (chronic kidney disease), stage III COVID-19 09/2021 - required hospitalization Infection, Pasteurella Acute on chronic systolic heart failure Chronic kidney disease, stage IV (severe) Pseudogout of hand Septic arthritis of hand, right Gram-negative bacteremia Right arm cellulitis Situational anxiety ARF (acute renal failure) UTI (urinary tract infection) recurrent Balance problems Bradycardia Secondary hypothyroidism Nocturia Arthritis, multiple joint involvement COPD (chronic obstructive pulmonary disease) Syncope and collapse (05/15/14) Osteoporosis Hypercholesterolemia HTN (hypertension) Surgical History History of rotator cuff surgery Jul 2011--Dr. Whitten History of carpal tunnel surgery History of myringotomy History of inguinal hernia repair History of bunionectomy History of breast biopsy Hx of adenoidectomy Hx of tonsillectomy H/O: hysterectomy S/P appendectomy S/P cholecystectomy Family History Mother , in her 80s of multiple CVAs Alzheimer disease Stroke Father , age 78 of COPD complications Emphysema, unspecified COPD (chronic obstructive pulmonary disease) Grandfather (Maternal) Colorectal cancer Uncle Prostate cancer Denies family history of Ovarian cancer Diabetes Coronary heart disease Heart disease Myocardial infarction Breast cancer Lung cancer Social History Smoking Status: Former smoker Tobacco Type: Cigarettes Age Started Using Tobacco: 23; Age Quit Using Tobacco: 61; Cigarettes Per Day: 1 ppd; Second Hand Exposure: No; Do You Dip or Chew Tobacco: No; Hx Alcohol Use: No Hx Substance Use: No Preferred Language: Citizen Of [place] Communication Ability: Effective Visual Impairment: Limited Hearing Ability: Use of Hearing Aid Salvage Machine Operator Required: No Beliefs That Will Affect Care: None marital status: Current Living Situation: Other Current Living Situation Comment: Elderly Apartments current occupational 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 BP 146/80 mmHg. Pulse 68 bpm and regular with sporadic ectopy. Skin: no obvious ecchymoses or generalized lesions. HEENT: unremarkable. Neck: Jugular venous pulse one third of the way to the angle of the jaw, no carotid bruits. Lungs: Mildly decreased breath sounds but generally clear. No crackles, wheezing, or accessory muscle use. Cardiac: regular rhythm, normal aortic closure sound, 2/6 systolic ejection murmur right upper sternal border which is nonradiating, no diastolic murmur. Abdomen: benign. Extremities: no edema, pulses intact. Neurologic: normal affect and conversation, grossly nonfocal. Results & Data Laboratory Results As per HPI Diagnostic Findings As per HPI. PG Care Time/CCT Total # of Minutes Spent Total Time Spent with Patient: Total time spent is greater than 50% in coordination of care (as documented) at patient's floor/unit and/or counseling patient: Coding Level of Care Code 24224 IN/OBS CONSULT LVL 4,60M Diagnoses Near syncope R55 Cardiomyopathy I42.9 Moderate mitral regurgitation I34.0
[2023-11-30] MEDS: HEPARIN SOD 5,000 UNIT/0.5 ML VIAL SQ SCH (21:21)
[2023-11-30] MEDS: ARTIFICIAL TEARS OP SCH (21:21)
[2023-12-01 04:08] LABS: Basophils # (auto) 0.01 K/uL (0.00-0.20); Basophils % (auto) 0.2 %; Hematocrit (blood only) 33.2 % (37.0-47.0); Hemoglobin 10.3 g/dl (12.0-16.0); Immature Granulocytes # (auto) 0.03 K/uL (0.01-0.20); Immature Granulocytes % (auto) 0.5 %; Lymphocytes # (auto) 0.62 K/uL (1.20-3.40); Lymphocytes % (auto) 10.6 %; Mean Corpuscular Hemoglobin 30.7 pg (25.0-34.0); Mean Corpuscular Volume 99.1 fL (80.0-100.0); Mean Platelet Volume 10.3 fL (9.4-12.4); Monocytes # (auto) 0.09 K/uL (0.11-0.59); Monocytes % (auto) 1.5 %; Neutrophils % (auto) 87.2 %; Platelet Count 217 K/uL (130-400); RDW Coefficient of Variation 12.9 % (11.5-14.5); RDW Standard Deviation 46.2 fL (36.4-46.3); Red Blood Count 3.35 M/uL (4.20-5.40); White Blood Count 5.85 K/ul (4.8-10.8)
[2023-12-01 04:14] LABS: Albumin Globulin Ratio 1.1 (0.9-2); Albumin Level 3.5 gm/dl (3.4-5.0); BUN Creatinine Ratio 24.1 (10-20); Bilirubin,Total 0.7 mg/dl (0.2-1.0); Calcium 8.7 mg/dl (8.6-10.3); Chol HDL Ratio 1.9 (0-5); Creatinine Clr Calc Pharmacy 24.4 ml/min; Est GFR (African American) 36.9 ml/min; Est GFR (Non-African American) 31.8 ml/min; Globulin 3.3 gm/dl (2.5-4.0); Magnesium 1.7 mg/dl (1.7-2.4); Potassium 4.3 mmol/L (3.5-5.1); Total Protein 6.8 gm/dl (6.0-8.3)
[2023-12-01 04:27] LABS: Thyroid Stimulating Hormone 1.912 uIu/ml (0.300-4.500)
[2023-12-01] MEDS: LEVOTHYROXINE SODIUM 75 MCG TABLET PO SCH (06:23)
[2023-12-01] MEDS: FUROSEMIDE 40 MG/4 ML VIAL IV SCH (08:42)
[2023-12-01] MEDS: CALCIUM CARBONATE 1250MG TAB PO SCH (08:43)
[2023-12-01] MEDS: ASPIRIN 81 MG ECTAB PO SCH (08:43)
[2023-12-01] MEDS: CEROVITE ADV FORMULA TAB PO SCH (08:43)
[2023-12-01] MEDS: lisinopril 10 MG TAB PO SCH (08:44)
[2023-12-01] MEDS: ADVANCED PROBIOTIC 625 MG CAPSULE PO SCH (08:44)
[2023-12-01] MEDS: MAGNESIUM OXIDE 400 MG TAB PO SCH (08:45)
[2023-12-01] MEDS: CHOLECALCIFEROL 125 MCG (5,000 UNITS) TAB PO SCH (08:45)
[2023-12-01] MEDS: UMECLIDINIUM/VILANTEROL 62.5/25MCG 7 PUFFS/INHALER INH SCH (08:46)
[2023-12-01] MEDS: FLUTICASONE PROPIONATE NA SPR 16 GM BTL SCH (08:46)
--- OUTSIDE RECORDS SUMMARY | 2023-12-01 09:53 | External Medical Summary | Summary of Care ---
Author Name Unknown Organization [facility] Address [address] [facility] [place] [address] Phone [phone] Care Team Providers Care Service Desk Technician Name Role Phone Kory Wan Primary Care Provider + Reason for Visit * Reason Comments Follow Up Encounter Details Date Type Department Care Team (Late st Contact Info) Description 10/26/2023 1:00 PM EST Office Visit Otolaryngology [facility] [address] [place] [address] Dawn Hughes PA-C [address] [place] [address] Bilateral impacted cerumen* Allergies Active Allergy Reactions Criticality Noted Date Comments Sulfamethoxazole-Trimethoprim Diarrhea 2017 Cephalexin Rash 11/01/2012 Latex Itching 11/01/2012 documented as of this encounter (statuses as of 10/26/2023) Medications Medication Sig Dispensed Refills Start Date End Date Status GLUCOSAMINE CHONDROITIN COMPLX PO TABS two tablets daily 0 Active VITAMIN D3 36594 UNITS PO CAPS one tablet daily 0 Activ e FOSAMAX 70 MG PO TABS one weekly 0 Active DAILY COMBO MULTIVITS/CALCIUM PO TABS two tablets daily 0 Active ASPIRIN 81 MG PO TABS one tablet 3 times a week 0 Active Probiotic Product (PROBIOTIC & ACIDOPHILUS EX ST) Capsule Take 1 Cap by mouth three times a day with meals. 0 Active saline (OCEAN NASAL SPRAY) 0.65 % nasal sprayIndications:Acu te frontal sinusitis, recurrence not specified Administer 2 Sprays into each nostril as needed for Congestion. for nasal dryness or congestion 1 Bottle 0 11/12/2017 Active Additional Information Patient not taking.Reported on 08/25/2023 betamethasone valerate (VALISONE) 0.1 % cream Apply to outer ears nightly for 2 weeks then 3 times a week as needed for itching of ears 30 g 3 10/19/2018 Active fluticasone (FLONASE) 50 MCG/ACT nasal spray SPRAY 2 SPRAYS INTO EACH NOSTRIL EVERY DAY 16 mL 4 01/31/2019 Active Lisinopril 20 MG Oral Tablet (Prinivil) Take 1 Tablet by mouth in the morning. 0 Active Atorvastatin Calcium 20 MG Oral Tablet (Lipitor) Take 1 Tablet by mouth. Take only Mon and Fri 0 Active Arnuity Ellipta 50 MCG/ACT Inhalation Aerosol Powder Breath Activated (Fluticasone Furoate) Inhale 1 Puff by mouth every morning. 0 Active PreserVision AREDS Oral Capsule Take 1 Capsule by mouth in the morning. 0 Active Refresh 1.4-0.6 % Ophthalmic Solution (polyvinyl alcohol-povidone PF) 1 Drop as needed. 0 Active Carboxymethylcellulo se Sod PF 1 % Ophthalmic Gel (Refresh Celluvisc) Instill into eye at bedtime. 0 Active Levothyroxine Sodium 75 MCG Oral Tablet (Levoxyl) Take 1 Tablet by mouth daily first thing in the morning. (at least 30 min prior to breakfast or other meds) 0 Active Ipratropium [place] 0.06 % Nasal Solution (Atrovent) Administer 2 Sprays into each nostril in the morning and 2 Sprays in the evening. 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 S/P tympanic tube insertion 12/06/2012 documented as of this encounter (statuses as of 10/26/2023) Social History Tobacco Use Types Packs/Day Years Used Date Smoking Tobacco: Former Cigarettes Q uit: 09/26/1995 Smokeless Tobacco: Never Alcohol Use Standard Drinks/Week Comments Yes 0 (1 standard drink = 0.6 oz pur e alcohol) occasional wine Sex and Gender Information Value Date Recorded Sex Assigned at Not on file Gender Identity Not on file Sexual Orientation Not on file Job Start Date Occupation Industry Not on file Not on file Not on file documented as of this encounter Last Filed Vital Signs Vital Sign Reading Time Taken Comments Blood Pressure - - Pulse - - Temperature 36.4 C (97.5 F) 10/26/2023 12:[address] Respiratory Rate - - Oxygen Saturation - - Inhaled Oxygen Concentration - - Weight 79.7 kg (175 lb 9.6 oz) 10/26/2023 12:47 PM EST Height 152 cm (4' 11.84") 10/26/2023 12:47 PM ES T Body Mass Index 34.47 10/26/2023 12:47 PM EST documented in this encounter Progress Notes * Dawn Hughes PA-C - 10/26/2023 1:16 PM EST SUBJECTIVE: Gayle Perkins is a 88 year old female. Chief Complaint Patient presents with Follow Up Nursing Notes: Zeinab Manzano LPN 10/26/23 1248 Signed Pt presents today for cerumen removal. Pt denies having any further concerns at this time. HPI: Patient presents for return appointment for cerumen removal. She denies concerns. Denies otalgia or otorrhea or acute changes in hearing. 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 saline (OCEAN NASAL SPRAY) 0.65 % nasal spray Administer 2 Sprays into each nostril as needed for Congestion. for nasal dryness or congestion (Patient not taking: Reported on 08/25/2023) 1 Bottle 0 betamethasone valerate (VALISONE) 0.1 % cream Apply to outer ears nightly for 2 weeks then 3 timesa week as needed for itching of ears 30 g 3 fluticasone (FLONASE) 50 MCG/ACT nasal spray SPRAY 2 SPRAYS INTO EACH NOSTRIL EVERY DAY 16 mL 4 Lisinopril 20 MG Oral Tablet (Prinivil) Take 1 Tablet by mouth in the morning. Atorvastatin Calcium 20 MG Oral Tablet (Lipitor) Take 1 Tablet by mouth. Take only Mon and Fri Arnuity Ellipta 50 MCG/ACT Inhalation Aerosol Powder Breath Activated (Fluticasone Furoate) Inhale 1 Puff by mouth every morning. PreserVision AREDS Oral Capsule Take 1 Capsule by mouth in the morning. Refresh 1.4-0.6 % Ophthalmic Solution (polyvinyl alcohol-povidone PF) 1 Drop as needed. Carboxymethylcellulose Sod PF 1 % Ophthalmic Gel (Refresh Celluvisc) Instill into eye at bedtime. Levothyroxine Sodium 75 MCG Oral Tablet (Levoxyl) Take 1 Tablet by mouth daily first thing in the morning. (at least 30 min prior to breakfast or other meds) Ipratropium [place] 0.06 % Nasal Solution (Atrovent) Administer 2 Sprays into each nostril in the morning and 2 Sprays in the evening. 45 mL 3 No current facility-administered medications for this visit. Review of patient's allergies indicates: Allergen Reactions Bactrim [Sulfamethoxazole-Trimethoprim] Diarrhea Keflex [Cephalexin] Rash Latex Itching REVIEW OF SYSTEMS Negative for constitutional, heart, lung, liver, kidney, digestive, hematologic, neurologic, rheumatologic, or endocrine complaints except as per history of present illness and past medical history. OBJECTIVE: Temp 36.4 C (97.5 F) (Tympanic) | Ht 1.52 m (4' 11.84") | Wt 79.7 kg (175 lb 9.6 oz) | BMI 34.47 kg/m | BSA 1.83 m PHYSICAL EXAM: General: alert, healthy and no distress Ears: Examination of the ears revealed that the auricles were normally formed with no lesions. External canals with canals healthy- with cerumen suctioned from both canals under microscopic guidance.The tympanic membranes were intact and freely mobile to pneumatoscopy without perforation or significant retraction pockets, cerumen removed from left canal with suction atraumatically Procedure performed by myself- In order to better examine the ears the patient was brought to the microscope room where her ears were examined under the operating microscope with impacted cerumen removed from both canals with suction and forceps atraumatically. She tolerated procedure well. ASSESSMENT/PLAN: Encounter Diagnoses Name Primary? Bilateral impacted cerumen Yes Plan:Findings and problems reviewed with patient. Canals cleaned and are healthy She will return in1 month. Dawn Hughes PA-C 10/26/2023 1:16 PM documented in this encounter Nursing Notes * Zeinab Manzano LPN - 10/26/2023 12:46 PM EST Pt presents today for cerumen removal. Pt denies having any further concerns at this time. documented in this encounter Plan of Treatment Upcoming Encounters Date Type Department Care Team (Late st Contact Info) Description 12/06/2023 1:40 PM EDT Office Visit Otolaryngology [facility] [address] [place] [address] Dawn Hughes PA-C [address] [place] [address] Health Maintenance Due Date Last Done Comments DXA Scan 1934 Depression Screening 1947 TSH 1952 DTaP,Tdap,and Td Vaccines (1 - Tdap) 1954 Zoster Vaccines (2 of 3) 07/22/2010 05/27/2010 COVID-19 Vaccine (3 - 2022-2 4 season) 2023 03/02/2021, 01/21/2021 Influenza Vaccine (FLU shot) (#1) 2023 Pneumococcal Vaccine: 65+ Years Completed 08/13/2014, 06/26/2010 GARDASIL-HPV IMMUNIZATION SERIES Aged Out No longer eligible b ased on patient's age to complete this topic Hepatitis B Aged Out No longer eligi ble based on patient's age to complete this topic MENINGOCOCCAL (MENACTRA/MENVEO) Aged Out No longer eligible b ased on patient's age to complete this topic documented as of this encounter Medical Devices Implanted Type Area Bobbin Presser Device Identifier Shelf Expiration Date Model / Serial / Lot Lens Li61ao 13.00mm 18.00 - [id number] - [id number] Implanted:Qty: 1 on 08/30/2023 by Chano Hayes MD at OR [facility] Left: Eye [employer] 04/25/2028 [id number] / [id number] / [id number] Lens Li61ao 13.00mm 19.50 - [id number] - [id number] Implanted:Qty: 1 on 09/08/2023 by Chano Hayes MD at OR [facility] Right: Eye [employer] 06/25/2028 [id number] / [id number] / [id number] documented as of this encounter Visit Diagnoses Diagnosis Bilateral impacted cerumen- Primary Impacted cerumen documented in this encounter Advance Directives Latest Code Status on File Code Status Date Activated Date Inactivated Comments Full Code 09/08/2023 2:24 PM 09/08/2023 8:30 PM Thi s order reflects the patients wishes and were consensually agreed upon. Question Answer Comments Discussion of Advance Directives occurred with: Patient Does the patient have a Living Will? No Does the patient have Health Care Power of Camp [place]? No Code Status History Code Status Date Activated Date Inactivated Comments Full Code 08/30/2023 1:11 PM 08/30/2023 7:26 PM This order reflects the patients wishes and were consensually agreed upon. Question Answer Comments Discussion of Advance Directives occurred with: Patient Does the patient have a Living Will? No Does the patient have Health Care Power of Camp Boss? No Care Teams Service Desk Technician Relationship Specialty Start Date End Date Kory Wan DO [address] [place], [place] [address] [address] PCP - General Family Medicine 08/30/23 documented as of this encounter
--- OUTSIDE RECORDS SUMMARY | 2023-12-01 09:53 | External Medical Summary | Summary of Care ---
Author Name Unknown Organization [facility] Address [address] [facility] [place] [address] Phone [phone] Care Team Providers Care Warehouse Manager Name Role Phone Kory Wan Primary Care Provider + Encounter Details Date Type Department Care Team (Late st Contact Info) Description 10/12/2023 Refill Otolaryngology [facility] [address] [place] [address] Dawn Houston PA-C [address] [place] [phone] Allergies Active Allergy Reactions Criticality Noted Date Comments Sulfamethoxazole-Trimethoprim Diarrhea 2017 Cephalexin Rash 11/01/2012 Latex Itching 11/01/2012 documented as of this encounter (statuses as of 10/12/2023) Medications Medication Sig Dispensed Refills Start Date End Date Status GLUCOSAMINE CHONDROITIN COMPLX PO TABS two tablets daily 0 Act dawn VITAMIN D3 46327 UNITS PO CAPS one tablet daily 0 [...] saline (OCEAN NASAL SPRAY) 0.65 % nasal sprayIndications: Acute frontal sinusitis, recurrence not specified Administer 2 [...] PF) 1 Drop as needed. 0 Active Carboxymethylcell ulose Sod PF 1 % Ophthalmic Gel (Refresh Celluvisc) Instill into eye at bedtime. 0 Active Levothyroxine Sodium 75 MCG Oral Tablet (Levoxyl) Take 1 Tablet by mouth daily first thing in the morning. (at least 30 min prior to breakfast or other meds) 0 Active Ipratropium [place] 0.06 % Nasal Solution (Atrovent) Administer 2 Sprays into each nostril in the morning and 2 Sprays in the evening. 45 mL 3 10/12/2023 Active Ipratropium [place] 0.06 % Nasal Solution (Atrovent) Administer 2 Sprays into each nostril in the morning and 2 Sprays in the evening. 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 S/P tympanic tube insertion 12/06/2012 documented as of this encounter (statuses as of 10/12/2023) Social History Tobacco Use Types Packs/Day Years [...] on file documented as of this encounter Miscellaneous Notes * Telephone Encounter - Dawn Houston PA-C - 10/12/2023 12:02 PM EST Signed Prescriptions: Disp Refills Ipratropium [place] 0.06 % Nasal Solution *45 mL 3 Sig: Administer 2 Sprays into each nostril in the morning and 2 Sprays in the evening.Authorizing Provider: DAWN HOUSTON * Telephone Encounter - Zeinab Manzano LPN - 10/12/2023 11:38 AM EST Received a refill request for Ipratropium spray. documented in this encounter Plan of Treatment Upcoming Encounters Date Type Department Care Team (Late st Contact Info) Description 10/26/2023 1:00 PM EST Office Visit Otolaryngology [facility] [address] [place] [address] Dawn Houston PA-C [address] [place] [address] Health Maintenance Due Date Last Done Comments [...] this encounter Medical Devices Implanted Type Area Emergency Vehicle Driver Device Identifier Shelf Expiration Date Model / Serial / Lot Lens Li61ao 13.00mm 18.00 - [id number] - [id number] Implanted:Qty: 1 on 08/30/2023 by Chano Hayes MD at OR [facility] Left: Eye [employer] 04/25/2028 [id number] / [id number] / [id number] Lens Li61ao 13.00mm 19.50 - [id number] - [id number] Implanted:Qty: 1 on 09/08/2023 by Chano Hayes MD at OR [facility] Right: Eye [employer] 06/25/2028 [id number] / [id number] / [id number] documented as of this encounter Advance Directives Latest Code Status on File Code Status Date Activated Date Inactivated Comments Full Code 09/08/2023 2:24 PM 09/08/2023 8:30 PM Thi s order reflects the patients wishes and were consensually agreed upon. Question Answer Comments Discussion of Advance Directives occurred with: Patient Does the patient have a Living Will? No Does the patient have Health Care Power of Hydraulic Plumber? No Code Status History Code Status Date Activated Date Inactivated Comments Full Code 08/30/2023 1:11 PM 08/30/2023 7:26 PM This order reflects the patients wishes and were consensually agreed upon. Question Answer Comments Discussion of Advance Directives occurred with: Patient Does the patient have a Living Will? No Does the patient have Health Care Power of Hydraulic Plumber? No Care Teams Warehouse Manager Relationship Specialty Start Date End Date Kory Wan DO [address] [place] [address] [place] [address] PCP - General Family Medicine 08/30/23 documented as of this encounter
--- NOTE | 2023-12-01 13:30 | Hospitalist Progress Note ---
Date of Service December 01, 2023 Assessment & Plan (1) CHF (congestive heart failure): Plan: Appears to be acute on chronic combined systolic and diastolic CHF. Most recent cardiac echo reveals ejection fraction of 45%. Parenteral Lasix administered today, November 30. Will reevaluate her response tomorrow. Cardiology thinks she probably will go home on Dyazide every other day. Monitor intake and output. Serial chest x-ray (2) Near syncope: Plan: Recurrent. Supportive care. Telemetry (3) Chronic kidney disease, stage IV (severe): Plan: Monitor intake and output. Serial labs (4) Left thyroid nodule: Plan: Thyroid ultrasound obtained and is negative for presence of thyroid nodule. Ruled out (5) Acute respiratory failure with hypoxia: Plan: Supplemental oxygen per nasal cannula to maintain saturation greater than 90%. Wean off as tolerated. Treat underlying CHF (6) Vertebrobasilar insufficiency: Plan: Chronic dizziness with recurrent episodes of near syncope. Continue current medical management (7) Elevated troponin: Plan: Chronic. No evidence of acute coronary syndrome Plan Hopeful discharge to home within the next day or 2 Admission and Anticipated Discharge Date Admission Date: November 30, 2023 Subjective Alert and oriented. Pleasant. Case discussed with cardiology. Will diurese with Lasix today then reevaluate tomorrow, December 01. Probable discharge on Dyazide every other day. Her loop recorder is negative for any significant cardiac dysrhythmia. Thyroid ultrasound is unremarkable. Review of Systems 2 Review of Systems: Constitutional-no fever or chills ENT-no blurred vision, no double vision, no epistaxis, no sore throat Respiratory-no cough, no wheezing, no shortness of breath Cardiac-no palpitations, no chest pain, no syncope GI-no nausea, vomiting, diarrhea, melena, hematochezia -no urinary retention, no urinary incontinence, no dysuria, no hematuria Musculoskeletal-no joint pain, no muscle tenderness Skin-no bruising, no rashes, no pruritus Neuro-no isolated weakness, no paresthesia, no weakness Psych-no depression, no anxiety Physical Exam 2 Physical Exam: General-alert and oriented x3, no fever, no chills HEENT-head atraumatic and normocephalic, pupils equal and reactive to light, extraocular muscles intact Neck-no lymphadenopathy or thyromegaly, trachea midline Chest-diminished breath sounds bilaterally with faint bibasilar inspiratory rales. No wheezing. No rhonchi. Cardiac-regular rate and rhythm, normal S1 and S2 Abdomen-normal bowel sounds, nontender, no hepatosplenomegaly Extremities-no cyanosis, clubbing, or edema Neuro-cranial nerves II through XII intact, motor and sensory function within normal limits, strength symmetrical , no focal deficits Psych-normal affect, normal mood Results & Data Results & Data Vital Signs (Past 12 Hours) Vital Signs Pulse Pulse Resp BP Pulse Ox Pulse Ox O2 Del Method 12/01/23 12:00 71 16 102/61 97 Nasal Cannula 12/01/23 07:59 Nasal Cannula 12/01/23 07:25 72 24 98 Nasal Cannula 12/01/23 06:54 74 12/01/23 01:46 75 22 149/70 H 97 Nasal Cannula 12/01/23 01:45 74 22 149/70 H 97 Nasal Cannula 12/01/23 01:43 97 12/01/23 01:42 73 22 149/70 H 96 Nasal Cannula O2 Del Method O2 Flow Rate O2 Flow Rate 12/01/23 12:00 3.5 12/01/23 07:59 3.5 12/01/23 07:25 3.5 12/01/23 06:54 12/01/23 01:46 3.5 12/01/23 01:45 3.5 12/01/23 01:43 Nasal Cannula 3.5 12/01/23 01:42 3.5 Laboratory Results 12/01/23 03:11 12/01/23 03:11 PG Care Time/CCT Total # of Minutes Spent Total Time Spent with Patient: Total time spent is greater than 50% in coordination of care (as documented) at patient's floor/unit and/or counseling patient: Coding Level of Care Code 84181 SUB INP/OBS CARE 3/50MIN Diagnoses CHF (congestive heart failure) I50.9 Near syncope R55 Chronic kidney disease, stage IV (severe) N18.4 Left thyroid nodule E04.1 Acute respiratory failure with hypoxia J96.01 Vertebrobasilar insufficiency G45.0 Elevated troponin R77.8
--- NOTE | 2023-12-01 16:06 | Cardiology Progress Note ---
Date of Service December 01, 2023 Assessment & Plan (1) Near syncope: (2) Cardiomyopathy: (3) Moderate mitral regurgitation: (4) Heart failure with mid-range ejection fraction (HFmEF): Plan Suspect her near syncope was related to her substantial vertebrobasilar syndrome, no evidence of dysrhythmia on interrogation of loop recorder and transient ventricular ectopy on telemetry is unlikely to have been sustained (would have shown up on the loop recorder). Doubt orthostasis given that she did appear mildly volume overloaded on admission. Extensive evaluations in the past have not been able to determine the cause of her presyncope/syncope, would not plan additional workup currently if she is able to ambulate without symptoms. Moderate cardiomyopathy is now noted and although she had no major symptoms of heart failure, she did respond well to a diuretic dose yesterday and her fatigue and dyspnea on exertion may well be due to mild congestive heart failure. As such, she received another dose of IV furosemide today, would reevaluate her volume status tomorrow before giving additional IV diuretic, since her degree of hypervolemia appears to be only modest. Although her moderate degree of LV systolic dysfunction could warrant further afterload reduction, I have been reluctant to titrate her vasoactive regimen up in the context of recurring syncope with uncertainty regarding the risk of orthostasis. If BP allows this hospitalization, could increase lisinopril from 10 mg daily to 10 mg twice daily. I suspect she could be discharged on a low-dose diuretic, such as triamterene/hydrochlorothiazide daily or even every other day, since she was not diuretic dependent prior to admission and since her degree of volume overload appears to be modest. Further recommendations after reevaluation in the morning. Admission and Anticipated Discharge Date Admission Date: November 30, 2023 Subjective She felt significantly better today, noting that she is breathing easier and that she slept well. No lightheadedness, presyncope, or syncope. Interrogation of loop recorder showed no pauses, bradycardia, or dysrhythmias. Telemetry showed sinus rhythm with frequent PACs and PVCs and 2 short runs of ventricular tachycardia (5 and 7 beats). Physical Exam Physical Exam: No distress. BP normotensive. Pulse 70 bpm. Respirations 16 and unlabored. Elder Skin: no obvious ecchymoses or generalized lesions. HEENT: unremarkable. Neck: Jugular venous pulse two thirds of the way to the angle of the jaw at 90 degrees, no carotid bruits. Lungs: Mildly decreased breath sounds but generally clear. No crackles, wheezing, or accessory muscle use. Cardiac: regular rhythm with sporadic ectopy, normal aortic closure sound, 2/6 systolic ejection murmur right upper sternal border which is nonradiating, no diastolic murmur. Abdomen: benign. Extremities: no edema, pulses intact. Neurologic: normal affect and conversation, grossly nonfocal. Results & Data Vital Signs (Past 12 Hours) Vital Signs Pulse Pulse Resp BP Pulse Ox O2 Del Method O2 Flow Rate 12/01/23 12:00 71 16 102/61 97 Nasal Cannula 3.5 12/01/23 07:59 Nasal Cannula 3.5 12/01/23 07:25 72 24 98 Nasal Cannula 3.5 12/01/23 06:54 74 Laboratory Results Normal electrolytes, BUN 35, creatinine 1.45 (up from 1.27). PG Care Time/CCT Total # of Minutes Spent Total Time Spent with Patient: Total time spent is greater than 50% in coordination of care (as documented) at patient's floor/unit and/or counseling patient: Coding Level of Care Code 03306 SUB INP/OBS CARE 3/50MIN Diagnoses Near syncope R55 Cardiomyopathy I42.9 Moderate mitral regurgitation I34.0 Heart failure with mid-range ejection fraction (HFmEF) I50.22
[2023-12-02 04:50] LABS: Basophils # (auto) 0.09 K/uL (0.00-0.20); Basophils % (auto) 0.9 %; Eosinophils # (auto) 0.31 K/uL (0.00-0.50); Eosinophils % (auto) 3.2 %; Hematocrit (blood only) 30.5 % (37.0-47.0); Hemoglobin 9.8 g/dl (12.0-16.0); Immature Granulocytes # (auto) 0.05 K/uL (0.01-0.20); Immature Granulocytes % (auto) 0.5 %; Lymphocytes # (auto) 1.55 K/uL (1.20-3.40); Lymphocytes % (auto) 15.9 %; Mean Corpuscular Hemoglobin 31.1 pg (25.0-34.0); Mean Corpuscular Hgb Conc 32.1 g/dL (32.0-36.0); Mean Corpuscular Volume 96.8 fL (80.0-100.0); Mean Platelet Volume 9.8 fL (9.4-12.4); Monocytes # (auto) 0.71 K/uL (0.11-0.59); Monocytes % (auto) 7.3 %; Neutrophils # (auto) 7.01 K/uL (1.40-6.50); Neutrophils % (auto) 72.2 %; Platelet Count 249 K/uL (130-400); RDW Coefficient of Variation 13.3 % (11.5-14.5); Red Blood Count 3.15 M/uL (4.20-5.40); White Blood Count 9.72 K/ul (4.8-10.8)
[2023-12-02 05:03] LABS: BUN Creatinine Ratio 28.5 (10-20); Calcium 8.2 mg/dl (8.6-10.3); Creatinine Clr Calc Pharmacy 20.6 ml/min; Est GFR (Non-African American) 25.9 ml/min
--- NOTE | 2023-12-02 07:40 | XRay Report ---
XR chest 1V portable HISTORY: 88 years-old Female CHF acute shortness of breath COMPARISON: 11/30/2023 TECHNIQUE: AP view of the chest FINDINGS: Cardiac silhouette is enlarged. Mildly progressed pulmonary edema. Emphysema. Small pleural effusions with bibasilar consolidation again noted. Degenerative changes of the shoulders and spine. IMPRESSION: 1. Cardiomegaly with interval development of mild pulmonary edema. 2. Small pleural effusions with mildly progressed bibasilar consolidation. ACT 112: Negative or not required by law. The above report was generated using voice recognition software. It may contain grammatical, syntax o r spelling errors. Electronically signed by: Chema Salcedo M.D. 12/02/2023 7:38 AM
[2023-12-02] MEDS ORDERED: FUROSEMIDE 40 MG/4 ML VIAL IV SCH (09:00)
[2023-12-02] MEDS: ATORVASTATIN 20 MG TAB PO SCH (10:45)
--- NOTE | 2023-12-02 13:49 | Cardiology Progress Note ---
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 She was not on a diuretic prior to hospitalization and was easily volume unloaded, mild azotemia after last furosemide dose, therefore recommend discharge on triamterene/HCTZ 37.5/25 once daily. Reviewed with patient importance of salt/sodium restriction. 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 Follow-up with Monica Poole PA-C in heart failure clinic in 1 week and with me in 2 to 4 weeks. I will arrange for the follow-up visits. Admission and Anticipated Discharge Date Admission Date: November 30, 2023 Subjective She feels well today. No dyspnea, lightheadedness, near-syncope, or syncope. Input/output -1450 mL. Nursing ambulated her and oxygen saturation remained in the 92-94% range and she was comfortable without dyspnea. Telemetry showed sinus rhythm with PVCs, no dysrhythmias. Physical Exam Physical Exam: No distress. BP predominantly normotensive. Pulse 75 bpm. Respirations 20 but unlabored Skin: no obvious ecchymoses or generalized lesions. HEENT: unremarkable. Neck: Jugular venous pulse just above the clavicle 90 degrees, no carotid bruits. Lungs: Mildly decreased breath sounds but generally clear. No crackles, wheezing, or accessory muscle use. Cardiac: regular rhythm with sporadic ectopy, normal aortic closure sound, 2/6 systolic ejection murmur right upper sternal border which is nonradiating, no diastolic murmur. Abdomen: benign. Extremities: no edema, pulses intact. Neurologic: normal affect and conversation, grossly nonfocal. Results & Data Vital Signs (Past 12 Hours) Vital Signs Pulse Pulse Resp BP Pulse Ox O2 Del Method O2 Flow Rate 12/02/23 11:28 75 20 145/98 H 97 Nasal Cannula 2 12/02/23 07:31 73 12/02/23 06:00 67 18 96 Nasal Cannula 2 Laboratory Results Normal electrolytes, BUN 49, creatinine 1.72 PG Care Time/CCT Total # of Minutes Spent Total Time Spent with Patient: Total time spent is greater than 50% in coordination of care (as documented) at patient's floor/unit and/or counseling patient: Coding Level of Care Code 03225 SUB INP/OBS CARE 2MIN Diagnoses Near syncope R55 Cardiomyopathy I42.9 Moderate mitral regurgitation I34.0 Heart failure with mid-range ejection fraction (HFmEF) I50.22
--- NOTE | 2023-12-02 14:06 | Discharge Summary ---
Date of Service December 02, 2023 Admission HPI Per Admitting Provider This is a pleasant 88-year-old female who had a history of near syncope earlier today as well as increasing shortness of breath with exertion over the last few days. She has had multiple syncopal episodes over the last many months. She has a cardiac loop recorder implanted has been following with cardiology. The patient follows with [facility] cardiology group Today she presents with the above complaints. Chest x-ray showed pulmonary vascular congestion, BNP was elevated greater than 700. Troponin was chronically elevated in the 30s. The patient received IV Lasix and some nebulizer treatments. We were called to admit the patient for decompensated heart failure. Principal Diagnosis Near syncope, acute on chronic systolic CHF Discharge Exam General-alert and oriented x3, no fever, no chills HEENT-head atraumatic and normocephalic, pupils equal and reactive to light, extraocular muscles intact Neck-no lymphadenopathy or thyromegaly, trachea midline Chest-diminished breath sounds bilaterally with faint bibasilar inspiratory rales. No wheezing. No rhonchi. Cardiac-regular rate and rhythm, normal S1 and S2 Abdomen-normal bowel sounds, nontender, no hepatosplenomegaly Extremities-no cyanosis, clubbing, or edema Neuro-cranial nerves II through XII intact, motor and sensory function within no rmal limits, strength symmetrical , no focal deficits Psych-normal affect, normal mood Discharge Data Allergies Allergy/AdvReac Type Severity Reaction Status Date / Time latex Allergy Intermediate SEVERE Verified 09/28/23 12:21 ITCHING cephalexin Allergy Mild RASH Verified 09/28/23 12:21 Consultations 11/30/23 11:55 ED Decision to Admit Stat 11/30/23 12:13 Consult Cardiology Routine Ordered Studies 11/30/23 06:53 CT head/brain wo con Stat 11/30/23 12:18 US thyroid Routine Hospital Course (1) CHF (congestive heart failure): Appears to be acute on chronic combined systolic and diastolic CHF. Most recent cardiac echo reveals ejection fraction of 45%. Parenteral Lasix administered on November 30. She had a good diuretic response and states she is feeling much better today, December 01. Oxygen will be discontinued. She has been seen by cardiology. She will be discharged on Dyazide once daily. (2) Near syncope: Recurrent. Supportive care. Telemetry (3) Chronic kidney disease, stage IV (severe): Monitor intake and output. Serial labs (4) Left thyroid nodule: Thyroid ultrasound obtained and is negative for presence of thyroid nodule. Ruled out (5) Acute respiratory failure with hypoxia: Resolved. Oxygen will be weaned off. (6) Vertebrobasilar insufficiency: Chronic dizziness with recurrent episodes of near syncope. Continue current medical management (7) Elevated troponin: Chronic. No evidence of acute coronary syndrome Plan Home today, December 01, on Dyazide once daily Total Time Total Time Spent Total Time Spent (In Minutes): 50 minutes Discharge Plan Discharge Items Patient Disposition: Home - Self-Care Reason For Visit: CHF/NEAR SYNCOPE Discharge Diagnosis: Acute on chronic systolic congestive heart failure, near syncope Activity: Resume your previous activity Non-emergency contact: Primary Care Provider and Senior [employer] Call non-emergency contact if: you have any medication questions and your symptoms worsen Follow-up/Referrals: Kory Wan DO [Primary Care Provider] - Diet: Regular and Heart Healthy Addtl Attending Provider Instructions: Take hydrochlorothiazide/triamterene (Dyazide) once daily after lunch for water pill. All other medications remain the same Pending Studies at Discharge: No Stand-Alone Forms: My [facility], Smoking Cessation Medications and DC Order Prescriptions: New triamterene-hydrochlorothiazid 37.5-25 mg capsule 1 cap PO DAILY Qty: 30 0RF Continued fluticasone propionate 50 mcg/actuation spray,suspension 1 - 2 spray intranasal DAILY Qty: 18.2 5RF levothyroxine 75 mcg capsule 75 mcg PO DAILY Qty: 90 2RF cholecalciferol (vitamin D3) 125 mcg (5,000 unit) tablet 125 mcg PO DAILY albuterol sulfate 90 mcg/actuation HFA aerosol inhaler 2 puff inhalation Q4H PRN (Reason: Shortness Of Breath) Qty: 1 calcium carbonate [Calcium 600] 600 mg calcium (1,500 mg) tablet 1,200 mg PO DAILY Probiotic 3 billion cell capsule 6,000 mmu cells PO DAILY Rx Instructions: administer with a meal lisinopril 10 mg tablet 10 mg PO DAILY Qty: 90 3RF carboxymethylcellulose sodium [Refresh Liquigel] 1 % drops, liquid gel 1 drp ophthalmic (eye) BID PreserVision AREDS 4,296 mcg-226 mg-90 mg capsule 1 cap PO DAILY aspirin 81 mg tablet,delayed release (DR/EC) 81 mg PO DAILY Patient Comments: magnesium 250 mg tablet 250 mg PO DAILY Qty: 30 0RF Rx Instructions: OTC nitroglycerin [Nitrostat] 0.4 mg Tablet, Sublingual 0.4 mg sublingual UD PRN (Reason: chest pain) Qty: 1 0RF Rx Instructions: max 3 tabs in 15 minutes Azo Cranberry 250 mg Tablet,Chewable 250 mg PO BID atorvastatin 20 mg tablet 20 mg PO 2XWK Rx Instructions: Mon/Fri diclofenac sodium 1 % gel 1 ea topical DIRECTED PRN (Reason: Pain) Rx Instructions: APPLY TOPICALLY 2G 4 TIMES A DAY NEEDED FOR PAIN Anoro Ellipta 62.5-25 mcg/actuation blister with device 1 inh inhalation DAILY Rx Instructions: INHALE ONCE DAILY Discharge Orders: Discharge Order- CHF (Routine); Ordered 12/02/23 Ordered By: Hill Marin Admission Data Admit Date/Time: 11/30/23 12:16 Attending Provider: Hill Marin Admit Provider: Kris Lowe Primary Care Provider: Kory Wan Other Providers: Kris Lowe; Yusef Rhodes Coding Level of Care Code 40307 INP/OBS DISCH >30 MIN Diagnoses CHF (congestive heart failure) I50.9 Near syncope R55 Chronic kidney disease, stage IV (severe) N18.4 Left thyroid nodule E04.1 Acute respiratory failure with hypoxia J96.01 Vertebrobasilar insufficiency G45.0 Elevated troponin R77.8
== END 2023-12-02 14:35 | disposition home or self-care (01) | DRG 291 ==
LOC: ED 06:01 → EDINP 12:16 → SUATTDRO 12:16 → EDINP 15:29

== ENCOUNTER 2024-01-04 15:25 | Inpatient (IN) ==
--- NOTE | 2024-01-04 15:57 | ED Triage Note ---
Date of Service January 04, 2024 Provider in Triage Author: Celi Huff History of Present Illness This patient was briefly evaluated while in triage. An abbreviated physical exam was performed. This patient is a 88-year-old Female who presents to the ED for evaluation of syncope and failure to thrive. She was referred by her PCP for syncopal episode 1 week ago with a fall. History of CHF. Having trouble managing at home and PCP concerned for failure to thrive. Her daughter states that she called this morning and she was very unsteady on her feet. Denies headache, dizziness, or changes in her vision. No obvious stroke like symptoms per daughter. When she fell on 12/26/23 she hit her head and right shoulder. Not on blood thinners. History of UTIs. Physical Exam GENERAL: Non-toxic and in no acute distress. HEENT: Pupils equal. No obvious scleral icterus. HEART: Regular rate and rhythm. LUNGS: Clear to auscultation. No accessory muscle use. ABDOMEN: Soft, non-tender to palpation. NEURO: Alert and oriented. No obvious neurological deficits on quick neuro exam. MUSCULOSKELETAL: Tender to palpation over the right humerus. No other tenderness to palpation of extremities. No cervical, thoracic, or lumbar spine tenderness. Walking with a walker. Initial orders for labs and / or imaging were placed and patient was placed in the waiting area until a bed is available. Please see further documentation for the full ED course. MDM / Impression Impression Impression: Stroke Impression: Stroke Qualifiers: CVA mechanism: unspecified Qualified Code(s): I63.9 - Cerebral infarction, unspecified
--- NOTE | 2024-01-04 16:38 | CT Scan Report ---
CERVICAL SPINE CT CT DOSE: 1032.72 mGy.cm HISTORY: Trauma TECHNIQUE: Multiaxial CT images of the cervical spine were performed and reformatted in the sagittal and coronal plane without the use of contrast. A dose lowering technique was utilized adhering to th e principles of ALARA. COMPARISON: Cervical spine CT 02/24/2023. FINDINGS: No fractures. No subluxation. Prevertebral soft tissues and the C1-C2 interval are intact. No pneumothorax. Moderate to severe degenerative changes again noted within the cervical spine. Mild emphysema. IMPRESSION: No fractures within the cervical spine. ACT 112: Negative or not required by law. Electronically signed by: Elmer Arizmendi M.D. 01/04/2024 4:36 PM
--- NOTE | 2024-01-04 16:42 | CT Scan Report ---
CT OF THE HEAD WITHOUT CONTRAST CLINICAL HISTORY: Trauma. COMPARISON STUDY: MRI of the brain February 16, 2023. Head CT November 30, 2023. TECHNIQUE: Helical axial images of the head were obtained without IV contrast. Automated exposure con trol was utilized for the study. A dose lowering technique was utilized adhering to the principles o f ALARA. FINDINGS: No acute intracranial hemorrhage, midline shift or mass effect is present. White matter hyp odensities are unchanged and favor small vessel disease. There is bilateral basal ganglia calcificati on. A 7 mm hypodense focus within the right internal capsule on image 14 of 32 is new since prior exa m. The ventricular system is unremarkable. The basal cisterns are patent. No extra-axial collections are present. There are no findings to suggest acute dural sinus thrombosis or acute territorial infar ct. No significant calvarial abnormalities are present. Visualized portions of the sinuses and mastoi d air cells are clear. IMPRESSION: 1. No acute intracranial hemorrhage. 2. No calvarial fracture. 3. 7 mm hypodense focus within the right internal capsule which is likely new since prior exam. This could reflect a small subacute to acute infarct. No mass effect. ACT 112: Negative or not required by law. Electronically signed by: Oleksandr Napier M.D. 01/04/2024 4:40 PM
[2024-01-04 17:12] LABS: Basophils # (auto) 0.06 K/uL (0.00-0.20); Eosinophils # (auto) 0.14 K/uL (0.00-0.50); Eosinophils % (auto) 2.3 %; Hematocrit (blood only) 36.9 % (37.0-47.0); Hemoglobin 11.3 g/dl (12.0-16.0); Immature Granulocytes # (auto) 0.03 K/uL (0.01-0.20); Immature Granulocytes % (auto) 0.5 %; Lymphocytes % (auto) 22.9 %; Mean Corpuscular Hemoglobin 30.5 pg (25.0-34.0); Mean Corpuscular Hgb Conc 30.6 g/dL (32.0-36.0); Mean Corpuscular Volume 99.5 fL (80.0-100.0); Mean Platelet Volume 9.9 fL (9.4-12.4); Monocytes # (auto) 0.49 K/uL (0.11-0.59); Neutrophils # (auto) 3.99 K/uL (1.40-6.50); Neutrophils % (auto) 65.3 %; Platelet Count 231 K/uL (130-400); Red Blood Count 3.71 M/uL (4.20-5.40); White Blood Count 6.11 K/ul (4.8-10.8)
[2024-01-04] MEDS: SODIUM CHLORIDE 0.9% 250 ML IV ONE (17:24)
[2024-01-04 17:30] LABS: Albumin Globulin Ratio 1.2 (0.9-2); Albumin Level 3.8 gm/dl (3.4-5.0); BUN Creatinine Ratio 31.5 (10-20); Bilirubin,Total 0.5 mg/dl (0.2-1.0); Calcium 9.8 mg/dl (8.6-10.3); Creatinine Clr Calc Pharmacy 20.9 ml/min; Est GFR (African American) 30.9 ml/min; Est GFR (Non-African American) 26.7 ml/min; Globulin 3.3 gm/dl (2.5-4.0); Potassium 4.8 mmol/L (3.5-5.1); Total Protein 7.1 gm/dl (6.0-8.3)
[2024-01-04 17:31] LABS: Influenza A virus by PCR Negative (Neg); Influenza B virus by PCR Negative (Neg); RSV by PCR Negative (Neg); SARS CoV2 RNA(COVID-19) Ceph NEGATIVE (Negative)
--- NOTE | 2024-01-04 17:32 | XRay Report ---
XR humerus RT 2V CLINICAL HISTORY: Trauma. Fall. Right arm pain. COMPARISON STUDY: None. FINDINGS: No fracture or dislocation within the right humerus. Soft tissues are unremarkable. No radi opaque foreign bodies. IMPRESSION: No fractures within the right humerus. ACT 112: Negative or not required by law. Electronically signed by: Elemr Arizmendi M.D. 01/04/2024 5:30 PM
--- NOTE | 2024-01-04 17:34 | XRay Report ---
XR chest 1V portable HISTORY: Chest pain, nonspecific COMPARISON: Chest CT 12/13/2023. FINDINGS: No pneumothorax. No pleural effusions. Mild emphysema and mild cardiomegaly again noted. No new focal lung consolidations to suggest a pneumonia. No evidence for pulmonary edema. No acute frac tures identified. IMPRESSION: No significant change compared to the prior study. No acute process. ACT 112: Negative or not required by law. Electronically signed by: Elmer Arizmendi M.D. 01/04/2024 5:32 PM
[2024-01-04 17:36] LABS: Troponin I High Sensitivity 42.3 pg/ml (0-14)
[2024-01-04 17:39] LABS: Partial Thromboplastin Ratio 0.9; Partial Thromboplastin Time 24 Seconds (21-31); Prothrombin Time 10.9 Seconds (9.0-12.0)
[2024-01-04 17:45] LABS: Thyroid Stimulating Hormone 1.166 uIu/ml (0.300-4.500)
--- NOTE | 2024-01-04 19:29 | Emergency Department Note ---
Impression & Plan Stroke ADMIT ED Provider Note HPI: History obtained from patient's daughter at the bedside. The patient is a 88-year-old female who presents the emergency department with a chief complaint of ambulatory dysfunction and dizziness. Patient's daughter at the bedside is serving as the primary historian, patient's daughter states that the patient reported today that she had a fall about 1 week ago. When the patient woke up this morning she was feeling "loopy" and she described this to her daughter as a sensation of being off balance. Patient states she still does have the sensation somewhat. Patient went to see her PCP today and was referred to the ER for further management. On arrival here to the ED and on my initial assessment the patient does not have any focal deficits, she is hemodynamically stable on arrival. Patient denies any focal complaint of pain. ROS: - Per HPI Differential Diagnosis: Vertigo, acute ischemic stroke, intracranial hemorrhage, critical electrolyte abnormalities, acute kidney injury/dehydration, amongst other potential pathologies. *Outpatient medications and allergy history reviewed. PE: General: Alert HEENT: Normocephalic, trachea midline Eyes: Extraocular eye movement is intact, no scleral erythema Pulmonary: Clear to auscultation bilaterally, no wheezing Cardio: Regular rate and rhythm GI: Abdomen is soft to palpation : No suprapubic tenderness MSK: No evidence of trauma or malformation of the extremities, no edema Skin: No evidence of rash Neuro: Alert, no focal deficits, no ataxia on [id number] testing bilaterally, symmetrical facial movements are appreciated, there is no drift of the upper extremities or lower extremities with testing against gravity Psychiatric: Cooperative NIH STROKE SCALE: 1A: Level of consciousness Alert; keenly responsive 0 1B: Ask month and age Both questions right 0 1C: 'Blink eyes' & 'squeeze hands' Performs both tasks 0 2: Horizontal extraocular movements Normal 0 3: Visual fuentes No visual loss 0 4: Facial palsy Normal symmetry 0 5A: Left arm motor drift No drift for 10 seconds 0 5B: Right arm motor drift No drift for 10 seconds 0 6A: Left leg motor drift No drift for 5 seconds 0 6B: Right leg motor drift No drift for 5 seconds 0 7: Limb Ataxia No ataxia 0 8: Sensation Normal; no sensory loss 0 9: Language/aphasia Normal; no aphasia 0 10: Dysarthria Normal 0 11: Extinction/inattention No abnormality 0 TOTAL NIH SCORE = 0 INDEPENDENT INTERPRETATIONS: monitoring engineer: (As interpreted by myself): - An order was placed for continuous cardiac monitoring - Patient was noted to be in sinus rhythm with a rate of 80 EKG: (As interpreted by myself): Rate: 70 Rhythm: Sinus rhythm Intervals: QRS 134 ms, otherwise within normal limits ST changes: No ST elevation Time: 1641 Chest x-ray: (As interpreted by myself): No acute disease Interventions provided in ED: -Aspirin Medical Decision Making: IV was established and lab work obtained, patient was placed on classroom monitor. Patient stated that she woke up with some acutely worsening symptoms this morning, however she has had some ambulatory issues dating back at least one week therefore she was not considered a candidate for thrombolysis or aggressive treatment for potential strokelike symptoms. In addition, NIH is 0 on my exam. Lab work shows no leukocytosis, hemoglobin is normal, platelet count is normal, CMP does not show any critical findings, creatinine is near baseline at 1.68. High-sensitivity troponin is elevated at 42.3 however this is also near the patient's baseline. TSH is normal. Urinalysis does not show any infection. COVID testing and influenza testing are negative. CT imaging of the head was obtained and does show evidence of an acute or subacute infarct in the right internal capsule. I suspect this is likely the source of the patient's symptoms. I discussed these findings with the patient and her daughter and they are in agreement for admission. Case was discussed with the on-call hospitalist, Dr. Moore, and the patient was placed for admission in stable condition for further care. Consultants/Discussions held with other healthcare providers: -Hospitalist, Dr. Moore Disposition discussion held by myself with: -Patient and daughter at bedside Diagnosis: 1. Stroke, acute 2. Ambulatory dysfunction, acute 3. Sensation of lightheadedness/dizziness, acute 4. Chronic kidney disease 5. Anemia, chronic Disposition: Admission Petar Peña DO Emergency Medicine Past Med/Surg History Medical History Vertebrobasilar insufficiency Moderate mitral regurgitation HFrEF (heart failure with reduced ejection fraction) Cardiomyopathy Chronic kidney disease, stage IV (severe) Hypothyroidism Hypomagnesemia UTI (urinary tract infection) Impaired fasting glucose Falls frequently Mitral regurgitation Anemia UTI (urinary tract infection) Syncope (08/2022) Chest pain at rest Abnormal ECG Subclavian artery stenosis, right Chronic cerebral ischemia Vertebrobasilar insufficiency Vertebral artery stenosis Carotid stenosis, right Acute chest wall pain LBBB (left bundle branch block) Acute severe vertigo Pasteurella infection Episodic lightheadedness CKD (chronic kidney disease), stage III 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, Pasteurella Acute on chronic systolic heart failure Chronic kidney disease, stage IV (severe) Pseudogout of hand Septic arthritis of hand, right Gram-negative bacteremia Right arm cellulitis Situational anxiety ARF (acute renal failure) UTI (urinary tract infection) Balance problems Bradycardia Secondary hypothyroidism Nocturia Arthritis, multiple joint involvement COPD (chronic obstructive pulmonary disease) Syncope and collapse (05/15/14) Osteoporosis Hypercholesterolemia HTN (hypertension) Surgical History History of rotator cuff surgery History of carpal tunnel surgery History of myringotomy History of inguinal hernia repair History of bunionectomy History of breast biopsy Hx of adenoidectomy Hx of tonsillectomy H/O: hysterectomy S/P appendectomy S/P cholecystectomy Family History Mother Alzheimer disease Stroke Father Emphysema, unspecified COPD (chronic obstructive pulmonary disease) Grandfather (Maternal) Colorectal cancer Uncle Prostate cancer Denies family history of Ovarian cancer Diabetes Coronary heart disease Heart disease Myocardial infarction Breast cancer Lung cancer Social History Smoking Status: Never smoker Tobacco Type: Cigarettes Age Started Using Tobacco: 23; Age Quit Using Tobacco: 61; Cigarettes Per Day: 1 ppd; Second Hand Exposure: No; Do You Dip or Chew Tobacco: No; Hx Alcohol Use: No Hx Substance Use: No Preferred Language: Greek Communication Ability: Effective Visual Impairment: Limited Hearing Ability: Use of Hearing Aid Work Distributor Required: No Beliefs That Will Affect Care: None marital status: Current Living Situation: Other Current Living Situation Comment: Elderly Apartments current occupational 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, 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 How many Children do You have: 2 Feels Safe at Home: Yes Childhood Exposure to Second-Hand Smoke: Yes Diet: regular caffeine: Yes Dental Care, Regularly: No Physical Activity Frequency: Does not Exercise Seatbelt Use: always Sunscreen Use: No Assistive Devices: Cane Allergies Allergies Allergy/AdvReac Type Severity Reaction Status Date / Time latex Allergy Intermediate SEVERE Verified 01/04/24 13:55 ITCHING cephalexin Allergy Mild RASH Verified 01/04/24 13:55 Home Meds Home Medications Medication Instructions Recorded Confirmed cholecalciferol (vitamin D3) 125 125 mcg PO DAILY 10/02/19 01/04/24 mcg (5,000 unit) tablet albuterol sulfate 90 mcg/actuation 2 puff inhalation Q4H PRN 04/10/21 01/04/24 aerosol inhaler Shortness Of Breath #1 g calcium carbonate (Calcium 600) 1,200 mg PO DAILY 06/16/21 01/04/24 lactobacillus combination no.4 3 6,000 mmu cells PO DAILY 06/16/21 01/04/24 billion cell capsule (Probiotic) aspirin 81 mg tablet,delayed 81 mg PO DAILY 07/06/22 01/04/24 release vitamins A,C,K-pksj-fnxien 4,296 1 cap PO DAILY 12/14/22 01/04/24 mcg-226 mg-90 mg capsule (PreserVision AREDS) cranberry fruit concentrate 250 mg 250 mg PO BID 02/15/23 01/04/24 chewable tablet (Azo Cranberry) carboxymethylcellulose sodium 1 % 1 drp ophthalmic (eye) BID 08/09/23 01/04/24 eye liquid gel drops (Refresh Liquigel) atorvastatin 20 mg tablet 20 mg PO 2XWK 11/30/23 01/04/24 umeclidinium 62.5 mcg-vilanterol 1 inh inhalation DAILY 11/30/23 01/04/24 25 mcg/actuation powdr for inhalation (Anoro Ellipta) Previous Rx's Medication Instructions Recorded magnesium 250 mg tablet 250 mg PO DAILY #30 tabs 10/09/21 fluticasone propionate 50 1 - 2 spray intranasal DAILY #18.2 02/05/22 mcg/actuation nasal mL spray,suspension nitroglycerin 0.4 mg sublingual 0.4 mg sublingual UD PRN chest 05/02/22 tablet (Nitrostat) pain #1 btl levothyroxine 75 mcg capsule 75 mcg PO DAILY #90 caps 04/13/23 lisinopril 10 mg tablet 10 mg PO DAILY #90 tabs 04/26/23 Saccharomyces boulardii 250 mg 250 mg PO BID #20 caps 12/13/23 capsule (Florastor) triamterene 37.5 1 cap PO .QOD #45 caps 12/26/23 mg-hydrochlorothiazide 25 mg capsule diclofenac sodium 1 % topical gel See Rx Instructions .Route 12/28/23 .COMPLEX #300 grams carvedilol 3.125 mg tablet 3.125 mg PO BID #180 tabs 01/02/24 Results & Data (ED) Vital Signs Vital Signs - 24 hr 01/04/24 15:55 01/04/24 19:52 01/04/24 19:53 Temperature 36.7 C Temperature Source Skin Pulse Rate 85 79 77 Pulse Rate from SpO2 Sensor 73 Respiratory Rate 18 19 Blood Pressure 151/67 H Blood Pressure Mean 95 Pulse Oximetry 99 95 Oxygen Delivery Method Room Air Sepsis Recent Fever Within 48 Hours No Sepsis New/Unexplained Change in Mental Status No Sepsis Action Taken by Nursing No Action Required 01/04/24 20:00 01/04/24 20:00 01/04/24 20:10 Temperature Temperature Source Pulse Rate 75 75 73 Pulse Rate from SpO2 Sensor 70 73 Respiratory Rate 16 16 19 Blood Pressure 186/102 H Blood Pressure Mean 113 Pulse Oximetry 97 97 99 Oxygen Delivery Method Sepsis Recent Fever Within 48 Hours Sepsis New/Unexplained Change in Mental Status Sepsis Action Taken by Nursing 01/04/24 20:14 01/04/24 20:20 01/04/24 20:36 Temperature Temperature Source Pulse Rate 76 82 Pulse Rate from SpO2 Sensor 74 Respiratory Rate 22 21 Blood Pressure Blood Pressure Mean Pulse Oximetry 97 95 Oxygen Delivery Method Room Air Sepsis Recent Fever Within 48 Hours Sepsis New/Unexplained Change in Mental Status Sepsis Action Taken by Nursing 01/04/24 20:40 01/04/24 20:50 01/04/24 21:00 Temperature Temperature Source Pulse Rate 85 102 H 80 Pulse Rate from SpO2 Sensor Respiratory Rate 19 18 22 Blood Pressure Blood Pressure Mean Pulse Oximetry Oxygen Delivery Method Sepsis Recent Fever Within 48 Hours Sepsis New/Unexplained Change in Mental Status Sepsis Action Taken by Nursing 01/04/24 21:00 01/04/24 21:10 01/04/24 21:20 Temperature Temperature Source Pulse Rate 80 78 75 Pulse Rate from SpO2 Sensor Respiratory Rate 22 22 20 Blood Pressure 158/101 H Blood Pressure Mean 127 Pulse Oximetry 97 Oxygen Delivery Method Sepsis Recent Fever Within 48 Hours Sepsis New/Unexplained Change in Mental Status Sepsis Action Taken by Nursing Laboratory Data 01/04/24 16:48 01/04/24 16:48 Lab Results 01/04/24 01/04/24 01/04/24 Range/Units 16:40 16:48 17:35 WBC 6.11 (4.8-10.8) K/ul RBC 3.71 L (4.20-5.40) M/uL Hgb 11.3 L (12.0-16.0) g/dl Hct 36.9 L (37.0-47.0) % MCV 99.5 (80.0-100.0) fL MCH 30.5 (25.0-34.0) pg MCHC 30.6 L (32.0-36.0) g/dL RDW Std Deviation 48.0 H (36.4-46.3) fL RDW Coeff of Stiven 13.0 (11.5-14.5) % Plt Count 231 (130-400) K/uL MPV 9.9 (9.4-12.4) fL Immature Gran % (Auto) 0.5 % Neut % (Auto) 65.3 % Lymph % (Auto) 22.9 % [place] % (Auto) 8.0 % Eos % (Auto) 2.3 % Baso % (Auto) 1.0 % Neut # (Auto) 3.99 (1.40-6.50) K/uL Lymph # (Auto) 1.40 (1.20-3.40) K/uL [place] # (Auto) 0.49 (0.11-0.59) K/uL Eos # (Auto) 0.14 (0.00-0.50) K/uL Baso # (Auto) 0.06 (0.00-0.20) K/uL Immature Gran # (Auto) 0.03 (0.01-0.20) K/uL PT 10.9 (9.0-12.0) Seconds INR 1.0 (0.9-1.1) APTT 24 (21-31) Seconds PTT Ratio 0.9 Sodium 138 (136-145) mmol/L Potassium 4.8 (3.5-5.1) mmol/L Chloride 103 (98-107) mmol/L Carbon Dioxide 27 (21-32) mmol/L Anion Gap 8 (3-11) BUN 53 H (6-23) mg/dl Creatinine 1.68 H (0.6-1.2) mg/dl Est Cr Clr Drug Dosing 20.9 ml/min Est GFR ( Amer) 30.9 ml/min Est GFR (Non-Af Amer) 26.7 ml/min BUN/Creatinine Ratio 31.5 H (10-20) Glucose 157 H (70-99(Fasting)) mg/dl Calcium 9.8 (8.6-10.3) mg/dl Magnesium 2.0 (1.7-2.4) mg/dl Total Bilirubin 0.5 (0.2-1.0) mg/dl AST 19 (13-39) U/L ALT 12 (7-52) U/L Alkaline Phosphatase 52 (34-104) U/L Troponin I High Sens 42.3 H (0-14) pg/ml Total Protein 7.1 (6.0-8.3) gm/dl Albumin 3.8 (3.4-5.0) gm/dl Globulin 3.3 (2.5-4.0) gm/dl Albumin/Globulin Ratio 1.2 (0.9-2) Lipase 32 (11-82) U/L TSH 1.166 (0.300-4.500) uIu/ml Urine Color Yellow Urine Appearance Clear (Clear) Urine pH 6.0 (4.5-7.5) Ur Specific [place] 1.015 (1.000-1.030) Urine Protein Negative (Negative) Urine Glucose (UA) Negative (Negative) Urine Ketones Negative (Negative) Urine Blood Negative (Negative) Urine Nitrite Negative (Negative) Urine Bilirubin Negative (Negative) Urine Urobilinogen Negative (Negative) Ur Leukocyte Esterase Negative (Negative) SARS-CoV-2 (PCR) NEGATIVE (Negative) Influenza Type A (PCR) Negative (Neg) Influenza Type B (PCR) Negative (Neg) RSV (RT-PCR) Negative (Neg) 01/04/24 Range/Units 18:30 WBC (4.8-10.8) K/ul RBC (4.20-5.40) M/uL Hgb (12.0-16.0) g/dl Hct (37.0-47.0) % MCV (80.0-100.0) fL MCH (25.0-34.0) pg MCHC (32.0-36.0) g/dL RDW Std Deviation (36.4-46.3) fL RDW Coeff of Stiven (11.5-14.5) % Plt Count (130-400) K/uL MPV (9.4-12.4) fL Immature Gran % (Auto) % Neut % (Auto) % Lymph % (Auto) % [place] % (Auto) % Eos % (Auto) % Baso % (Auto) % Neut # (Auto) (1.40-6.50) K/uL Lymph # (Auto) (1.20-3.40) K/uL [place] # (Auto) (0.11-0.59) K/uL Eos # (Auto) (0.00-0.50) K/uL Baso # (Auto) (0.00-0.20) K/uL Immature Gran # (Auto) (0.01-0.20) K/uL PT (9.0-12.0) Seconds INR (0.9-1.1) APTT (21-31) Seconds PTT Ratio Sodium (136-145) mmol/L Potassium (3.5-5.1) mmol/L Chloride (98-107) mmol/L Carbon Dioxide (21-32) mmol/L Anion Gap (3-11) BUN (6-23) mg/dl Creatinine (0.6-1.2) mg/dl Est Cr Clr Drug Dosing ml/min Est GFR ( Amer) ml/min Est GFR (Non-Af Amer) ml/min BUN/Creatinine Ratio (10-20) Glucose (70-99(Fasting)) mg/dl Calcium (8.6-10.3) mg/dl Magnesium (1.7-2.4) mg/dl Total Bilirubin (0.2-1.0) mg/dl AST (13-39) U/L ALT (7-52) U/L Alkaline Phosphatase (34-104) U/L Troponin I High Sens 31.5 H D (0-14) pg/ml Total Protein (6.0-8.3) gm/dl Albumin (3.4-5.0) gm/dl Globulin (2.5-4.0) gm/dl Albumin/Globulin Ratio (0.9-2) Lipase (11-82) U/L TSH (0.300-4.500) uIu/ml Urine Color Urine Appearance (Clear) Urine pH (4.5-7.5) Ur Specific [place] (1.000-1.030) Urine Protein (Negative) Urine Glucose (UA) (Negative) Urine Ketones (Negative) Urine Blood (Negative) Urine Nitrite (Negative) Urine Bilirubin (Negative) Urine Urobilinogen (Negative) Ur Leukocyte Esterase (Negative) SARS-CoV-2 (PCR) (Negative) Influenza Type A (PCR) (Neg) Influenza Type B (PCR) (Neg) RSV (RT-PCR) (Neg) Administered Medications Discontinued Medications Aspirin (Aspirin 81 Mg Chew) 243 mg PO NOW STA Stop: 01/04/24 21:57 Last Admin: 01/04/24 22:52 Dose: 243 mg Documented By: WILLEM Sodium Chloride (Nss) 250 mls @ 999 mls/hr IV .Q16M ONE Stop: 01/04/24 16:16 Last Infusion: 01/04/24 19:40 Dose: Infused Documented By: Admin: 01/04/24 17:24 Dose: 999 mls/hr Documented By: ES Imaging Data Radiologist's Impression: Cervical Spine CT 01/04/24 15:[address] DOSE: 1032.72 mGy.cm HISTORY: Trauma TECHNIQUE: Multiaxial CT images of the cervical spine were performed and reformatted in the sagittal and coronal plane without the use of contrast. A dose lowering technique was utilized adhering to the principles of ALARA. COMPARISON: Cervical spine CT 02/24/2023. FINDINGS: No fractures. No subluxation. Prevertebral soft tissues and the C1-C2 interval are intact. No pneumothorax. Moderate to severe degenerative changes again noted within the cervical spine. Mild emphysema. IMPRESSION: No fractures within the cervical spine. ACT 112: Negative or not required by law. Electronically signed by: Elmer Arizmendi M.D. 01/04/2024 4:[address] 01/04/24 15:59 CT OF THE HEAD WITHOUT CONTRAST CLINICAL HISTORY: Trauma. COMPARISON STUDY: MRI of the brain February 16, 2023. Head CT November 30, 2023. TECHNIQUE: Helical axial images of the head were obtained without IV contrast. Automated exposure control was utilized for the study. A dose lowering technique was utilized adhering to the principles of ALARA. FINDINGS: No acute intracranial hemorrhage, midline shift or mass effect is present. White matter hypodensities are unchanged and favor small vessel disease. There is bilateral basal ganglia calcification. A 7 mm hypodense focus within the right internal capsule on image 14 of 32 is new since prior exam. The ventricular system is unremarkable. The basal cisterns are patent. No extra- axial collections are present. There are no findings to suggest acute dural sinus thrombosis or acute territorial infarct. No significant calvarial abnormalities are present. Visualized portions of the sinuses and mastoid air cells are clear. IMPRESSION: 1. No acute intracranial hemorrhage. 2. No calvarial fracture. 3. 7 mm hypodense focus within the right internal capsule which is likely new since prior exam. This could reflect a small subacute to acute infarct. No mass effect. ACT 112: Negative or not required by law. Electronically signed by: Oleksandr Napier M.D. 01/04/2024 4:40 PM Humerus X-Ray 01/04/24 15:59 XR humerus RT 2V CLINICAL HISTORY: Trauma. Fall. Right arm pain. COMPARISON STUDY: None. FINDINGS: No fracture or dislocation within the right humerus. Soft tissues are unremarkable. No radiopaque foreign bodies. IMPRESSION: No fractures within the right humerus. ACT 112: Negative or not required by law. Electronically signed by: Elmer Arizmendi M.D. 01/04/2024 5:30 PM Chest X-Ray 01/04/24 16:00 XR chest 1V portable HISTORY: Chest pain, nonspecific COMPARISON: Chest CT 12/13/2023. FINDINGS: No pneumothorax. No pleural effusions. Mild emphysema and mild cardiomegaly again noted. No new focal lung consolidations to suggest a pneumonia. No evidence for pulmonary edema. No acute fractures identified. IMPRESSION: No significant change compared to the prior study. No acute process. ACT 112: Negative or not required by law. Electronically signed by: Elmer Arizmendi M.D. 01/04/2024 5:32 PM Brain MRI 01/04/24 20:37 CR Exam(s): MRI HEAD Without Contrast EXAM: MR Head Without Intravenous Contrast CLINICAL HISTORY: Reason for exam: CVA. TECHNIQUE: Magnetic resonance images of the head/brain without intravenous contrast in multiple planes. COMPARISON: No relevant prior studies available. FINDINGS: Brain: Scattered punctate areas of acute cortical infarct involving the right frontal cortex, right parietal cortex, right occipital cortex, right zepeda radiata, and within the right internal capsule. Severe periventricular and subcortical T2/flair hyperintensities consistent with chronic microvascular ischemic changes. Age-related parenchymal atrophy. No acute hemorrhage. No mass-effect. Ventricles: Unremarkable. No ventriculomegaly. Bones/joints: Unremarkable. No acute fracture. Sinuses: Unremarkable as visualized. No acute sinusitis. Mastoid air cells: Unremarkable as visualized. No mastoid effusion. Orbits: Unremarkable as visualized. IMPRESSION: Scattered punctate areas of acute cortical infarct involving the right frontal cortex, right parietal cortex, right occipital cortex, right zepeda radiata, and within the right internal capsule. Consider embolic source. Communications: Verify Receipt Electronically signed by: Hayder Edwards MD 01/04/24 22:50 PM Head MRA 01/04/24 20:40 Exam(s): MRA HEAD Without Contrast EXAM: MR Angiography Head Without Intravenous Contrast CLINICAL HISTORY: Reason for exam: CVA. TECHNIQUE: Magnetic resonance angiography images of the head without intravenous contrast. COMPARISON: MRI brain on the same day FINDINGS: Right internal carotid artery: No acute findings. Intracranial segment is patent with no significant stenosis. No aneurysm. Right anterior cerebral artery: Unremarkable. No occlusion or significant stenosis. No aneurysm. Right middle cerebral artery: Unremarkable. No occlusion or significant stenosis. No aneurysm. Right posterior cerebral artery: Unremarkable. No occlusion or significant stenosis. No aneurysm. Right vertebral artery: Unremarkable as visualized. Left internal carotid artery: No acute findings. Intracranial segment is patent with no significant stenosis. No aneurysm. Left anterior cerebral artery: Unremarkable. No occlusion or significant stenosis. No aneurysm. Left middle cerebral artery: Unremarkable. No occlusion or significant stenosis. No aneurysm. Left posterior cerebral artery: Unremarkable. No occlusion or significant stenosis. No aneurysm. Left vertebral artery: Unremarkable as visualized. Basilar artery: Unremarkable. No occlusion or significant stenosis. No aneurysm. IMPRESSION: No arterial occlusion or flow limiting stenosis. Electronically signed by: Hayder Edwards MD 01/04/24 22:52 PM Discharge Plan Visit Data Chief Complaint: Referred by Doctor Stated Complaint: REF BY DOC ED Provider: Petar Peña Discharge Problem: Stroke Patient Disposition: Admitted As Inpatient Discharge Instructions Interventions: ED Discharge Assessment Last Done: 01/04/24 23:05 Discharge Problem: Stroke Qualifiers: CVA mechanism: unspecified Qualified Code(s): I63.9 - Cerebral infarction, unspecified
[2024-01-04 20:16] LABS: Appearance Urine Clear (Clear); Bilirubin Urine Negative (Negative); Blood Urine Negative (Negative); Color Urine Yellow; Glucose Urine UA Negative (Negative); Ketones Urine Negative (Negative); Leukocyte Esterase Urine Negative (Negative); Nitrite Urine Negative (Negative); Protein Urine Negative (Negative); Specific Gravity Urine 1.015 (1.000-1.030); Urobilinogen Urine Negative (Negative)
--- NOTE | 2024-01-04 20:28 | History & Physical Report ---
Date of Service January 04, 2024 Assessment & Plan (1) CVA (cerebral vascular accident): Plan: Presumed stroke based on head CT findings; Brain MRI still pending Patient sent in by her PCP on 01/03 for head imaging given ongoing dizziness and balance issues Fall on 12/25: patient struck head and right shoulder, but did not come to the hospital at this time Head CT revealed 7mm hyperdense focus in the right internal capsule which could indicate acute to subacute infarct No prior hx of stroke No facial droop, slurred speech, or unilateral deficits appreciated on clinical exam Brain MRI, Head MRA, and B/L carotid doppers pending Last echo on 11/30/2023 without evidence of ASD Neurochecks q4h Continue aspirin 81mg daily Start Plavix 75mg daily Consult neurology pending brain MRI findings PT/OT consulted A.m. CBC, BMP, A1c, and fasting lipid panel (2) HTN (hypertension): Plan: Per review of last Cardio note, has been a difficult balance between managing her HTN in the setting of CVD and recurrent falls/syncope Patient reports she has not been taking her carvedilol, as she is worried this contributes to her falls Patient is likely >24h out from CVA; no current s/s of stroke, so unsure if permissive HTN is necessary, however: Hold lisinopril given renal function Hold triamtereneHCTZ given clinically dry + dizziness Hold carvedilol for now, rather than restarting Check for resolution of dizziness / balance issues with held antihypertensives Next step could be restarting carvedilol or adding low-dose CCB, such as amlodipine (3) HFrEF (heart failure with reduced ejection fraction): Plan: Echocardiogram on 11/30/2023 revealed LVEF at 30-35%; severe global hypokinesis of left ventricle; elevated RVSP; no evidence of ASD Prior difficulty with Lasix; recently discharged on 12/01 on triamterene-HCTZ Hold triamtereneHCTZ (as above) (4) Elevated troponin: Plan: Troponin 42->31 on arrival Clinically patient denies chest pain Continuous telemetry (5) Falls frequently: Plan: 2 falls in the last month Cervical spine CT, right humerus x-ray, and chest x-ray without acute fractures Fall precautions Plan Disposition: Admit to PCU telemetry Full code AHA diet VTE PPx: TEDs (can consider chemical DVT pending brain MRI) History of Present Illness Chief Complaint: Referred by Doctor, Dizziness, ambulatory dysfunction Primary Care Provider: Kory Wan DO Araujo is an 88yo female with PMH of HFrEF, hypothyroidism, frequent falls, syncope, HTN, osteoporosis, arthritis, COPD, vertebral basilar insufficiency, and urinary incontinence. She presented due to balance issues the morning of 01/03. She fell and struck her head on 12/25, but did not come into the hospital at that time. Sent in by her PCP for a head CT. Patient currently lives alone. She endorses that she has been having ongoing balance issues for the past several years. However she is fallen twice in the past month. Her fall on 12/25 involved head strike as well as right shoulder when she was walking into the kitchen; she was using her cane at the time, but reports that she lost her balance and went down. No LOC. No tripping. She denies dizziness or lightheadedness prior to the fall, but reports that she "just goes down". She also ports she has been feeling "loopy". She noticed that she is going to fall ahead of time, and sometimes sits on the edge of bed, because if she stands up she believes she will follow-up. To her knowledge, no prior history of CVA, IN, PE, or diabetes. She did have history of DVT years ago, but had the veins stripped in her leg. Patient took all of her morning medications; she is unsure of changes to medications. Of note, the patient has not been taking her carvedilol over the past 2 weeks, as she believes it is contributing to her balance issues. She only took 5 total pills of carvedilol. Patient quit smoking in 1995. No recent alcohol use. ED Course: NSS 250mL IV ROS: Patient endorses balance issues, lightheadedness, nausea and vomiting with spell s, diarrhea, Patient denies fever, chills, nightsweats, ROGEL, changes in vision, facial droop, slurred speech, unilateral deficits, chest pain, chest palpitations, cough, pleuritic CP, SOB, abdominal pain, blood in the urine/stool, burning with urination, dysuria, and leg weakness. Allergies Allergy/AdvReac Type Severity Reaction Status Date / Time latex Allergy Intermediate SEVERE Verified 01/04/24 13:55 ITCHING cephalexin Allergy Mild RASH Verified 01/04/24 13:55 Home Medications Medication Instructions Recorded Confirmed Type cholecalciferol (vitamin D3) 125 125 mcg PO DAILY 10/02/19 01/04/24 History mcg (5,000 unit) tablet albuterol sulfate 90 mcg/actuation 2 puff inhalation Q4H PRN 04/10/21 01/04/24 History aerosol inhaler Shortness Of Breath #1 g calcium carbonate (Calcium 600) 1,200 mg PO DAILY 06/16/21 01/04/24 History lactobacillus combination no.4 3 6,000 mmu cells PO DAILY 06/16/21 01/04/24 History billion cell capsule (Probiotic) magnesium 250 mg tablet 250 mg PO DAILY #30 tabs 10/09/21 01/04/24 Rx fluticasone propionate 50 1 - 2 spray intranasal DAILY #18.2 02/05/22 01/04/24 Rx mcg/actuation nasal mL spray,suspension nitroglycerin 0.4 mg sublingual 0.4 mg sublingual UD PRN chest 05/02/22 01/04/24 Rx tablet (Nitrostat) pain #1 btl aspirin 81 mg tablet,delayed 81 mg PO DAILY 07/06/22 01/04/24 History release vitamins A,C,G-ochr-wmlldn 4,296 1 cap PO DAILY 12/14/22 01/04/24 History mcg-226 mg-90 mg capsule (PreserVision AREDS) cranberry fruit concentrate 250 mg 250 mg PO BID 02/15/23 01/04/24 History chewable tablet (Azo Cranberry) levothyroxine 75 mcg capsule 75 mcg PO DAILY #90 caps 04/13/23 01/04/24 Rx lisinopril 10 mg tablet 10 mg PO DAILY #90 tabs 04/26/23 01/04/24 Rx carboxymethylcellulose sodium 1 % 1 drp ophthalmic (eye) BID 08/09/23 01/04/24 History eye liquid gel drops (Refresh Liquigel) atorvastatin 20 mg tablet 20 mg PO 2XWK 11/30/23 01/04/24 History umeclidinium 62.5 mcg-vilanterol 1 inh inhalation DAILY 11/30/23 01/04/24 History 25 mcg/actuation powdr for inhalation (Anoro Ellipta) Saccharomyces boulardii 250 mg 250 mg PO BID #20 caps 12/13/23 01/04/24 Rx capsule (Florastor) triamterene 37.5 1 cap PO .QOD #45 caps 12/26/23 01/04/24 Rx mg-hydrochlorothiazide 25 mg capsule diclofenac sodium 1 % topical gel See Rx Instructions .Route 12/28/23 01/04/24 Rx .COMPLEX #300 grams carvedilol 3.125 mg tablet 3.125 mg PO BID #180 tabs 01/02/24 01/04/24 Rx Past Med/Surg History Medical History Vertebrobasilar insufficiency Moderate mitral regurgitation HFrEF (heart failure with reduced ejection fraction) EF 30% - 2023 echo Chronic kidney disease, stage IV (severe) Hypothyroidism Impaired fasting glucose Falls frequently Anemia Syncope (08/2022) Chest pain at rest Subclavian artery stenosis, right Chronic cerebral ischemia Vertebral artery stenosis Carotid stenosis, right Acute chest wall pain LBBB (left bundle branch block) Acute severe vertigo Pasteurella infection with bacteremia, 2nd to cat scratch and RUE cellulitis - 06/16 CKD (chronic kidney disease), stage III COVID-19 09/2021 - required hospitalization Acute on chronic systolic heart failure Chronic kidney disease, stage IV (severe) Pseudogout of hand Septic arthritis of hand, right Gram-negative bacteremia Right arm cellulitis Situational anxiety ARF (acute renal failure) UTI (urinary tract infection) recurrent Balance problems Bradycardia Secondary hypothyroidism Nocturia Arthritis, multiple joint involvement COPD (chronic obstructive pulmonary disease) Osteoporosis Hypercholesterolemia HTN (hypertension) Surgical History History of rotator cuff surgery Jul 2011--Dr. Whitten History of carpal tunnel surgery History of myringotomy History of inguinal hernia repair History of bunionectomy History of breast biopsy Hx of adenoidectomy Hx of tonsillectomy H/O: hysterectomy S/P appendectomy S/P cholecystectomy Family History Mother , in her 80s of multiple CVAs Alzheimer disease Stroke Father , age 78 of COPD complications Emphysema, unspecified COPD (chronic obstructive pulmonary disease) Grandfather (Maternal) Colorectal cancer Uncle Prostate cancer Denies family history of Ovarian cancer Diabetes Coronary heart disease Heart disease Myocardial infarction Breast cancer Lung cancer Social History Smoking Status: Former smoker Tobacco Type: Cigarettes Age Started Using Tobacco: 23; Age Quit Using Tobacco: 61; Cigarettes Per Day: 1 ppd; Second Hand Exposure: No; Do You Dip or Chew Tobacco: No; Hx Alcohol Use: No Hx Substance Use: No Preferred Language: Yi Communication Ability: Effective Visual Impairment: Limited Hearing Ability: Use of Hearing Aid Machine Group Leader Required: No Beliefs That Will Affect Care: None marital status: Current Living Situation: Alone Current Living Situation Comment: independent elderly apartment current occupational 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[employer], 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 How many Children do You have: 2 Feels Safe at Home: Yes Safety Concerns: Feels Safe At This Time Childhood Exposure to Second-Hand Smoke: Yes Diet: regular caffeine: Yes Dental Care, Regularly: No Physical Activity Frequency: Does not Exercise Seatbelt Use: always Sunscreen Use: No Assistive Devices: Denture - Upper, Denture - Lower, Glasses and Hearing Aid - Bilateral Review of Systems Review of Systems: See HPI above Physical Exam Physical Exam: General: no acute distress; pleasant affect; anxious; non-toxic appearing; well- nourished; cooperative; SpO2 97% on RA HEENT: Superficial linear abrasion on the right upper scalp; no scleral icterus; PERRLA w/ EOMs intact; moist mucus membrane; vision and hearing grossly intact; patient can smile and raise eyebrows without deficits Neck: supple; no lymphadenopathy; trachea midline Skin: warm, dry without signs of tenting; no cyanosis; no rashes, bruising, lesions, or erythema noted CV: chest wall NTP; RRR; S1/S2 normal; no murmurs/rubs/gallops; pulses intact and symmetric at radial, DP, and PT Lungs: no acute respiratory distress; symmetrical chest wall expansion; clear breath sounds across all lung fuentes w/o adventitious sounds; no wheezing ABD: Soft, NTP; BS present; no rebound/guarding; no distention MSK: no tics or fasciculations; no edema noted in the LEs b/l, nonerythematous; 5/5 booking supervisor strength bilaterally; patient demonstrates ability to lift legs from the bed 4/5 bilaterally; patient demonstrates ability to wiggle toes Neuro: A&Ox3; no facial droop; normal mood and affect; fluent speech, no slurred speech; no focal deficits; sensation grossly intact in the face/UEs/LEs b/l; negative pronator drift Results & Data Results & Data Vital Signs (Past 12 Hours) Vital Signs Temp Pulse Resp BP Pulse Ox O2 Del Method 01/04/24 20:14 97 Room Air 01/04/24 20:10 73 19 99 01/04/24 20:00 75 16 97 01/04/24 20:00 75 16 186/102 H 97 01/04/24 19:52 79 19 95 01/04/24 15:55 36.7 C 85 18 151/67 H 99 Room Air Laboratory Results Abnormal lab results 01/04/24 01/04/24 Range/Units 16:48 18:30 RBC 3.71 L (4.20-5.40) M/uL Hgb 11.3 L (12.0-16.0) g/dl Hct 36.9 L (37.0-47.0) % MCHC 30.6 L (32.0-36.0) g/dL RDW Std Deviation 48.0 H (36.4-46.3) fL BUN 53 H (6-23) mg/dl Creatinine 1.68 H (0.6-1.2) mg/dl BUN/Creatinine Ratio 31.5 H (10-20) Glucose 157 H (70-99(Fasting)) mg/dl Troponin I High Sens 42.3 H 31.5 H D (0-14) pg/ml Diagnostic Findings Cervical Spine CT 01/04/24 15:[address] DOSE: 1032.72 mGy.cm HISTORY: Trauma TECHNIQUE: Multiaxial CT images of the cervical spine were performed and reformatted in the sagittal and coronal plane without the use of contrast. A dose lowering technique was utilized adhering to the principles of ALARA. COMPARISON: Cervical spine CT 02/24/2023. FINDINGS: No fractures. No subluxation. Prevertebral soft tissues and the C1-C2 interval are intact. No pneumothorax. Moderate to severe degenerative changes again noted within the cervical spine. Mild emphysema. IMPRESSION: No fractures within the cervical spine. ACT 112: Negative or not required by law. Electronically signed by: Elmer Arizmendi M.D. 01/04/2024 4:[address] 01/04/24 15:59 CT OF THE HEAD WITHOUT CONTRAST CLINICAL HISTORY: Trauma. COMPARISON STUDY: MRI of the brain February 16, 2023. Head CT November 30, 2023. TECHNIQUE: Helical axial images of the head were obtained without IV contrast. Automated exposure control was utilized for the study. A dose lowering technique was utilized adhering to the principles of ALARA. FINDINGS: No acute intracranial hemorrhage, midline shift or mass effect is present. White matter hypodensities are unchanged and favor small vessel disease. There is bilateral basal ganglia calcification. A 7 mm hypodense focus within the right internal capsule on image 14 of 32 is new since prior exam. The ventricular system is unremarkable. The basal cisterns are patent. No extra- axial collections are present. There are no findings to suggest acute dural sinus thrombosis or acute territorial infarct. No significant calvarial abnormalities are present. Visualized portions of the sinuses and mastoid air cells are clear. IMPRESSION: 1. No acute intracranial hemorrhage. 2. No calvarial fracture. 3. 7 mm hypodense focus within the right internal capsule which is likely new since prior exam. This could reflect a small subacute to acute infarct. No mass effect. ACT 112: Negative or not required by law. Electronically signed by: Oleksandr Napier M.D. 01/04/2024 4:40 PM Humerus X-Ray 01/04/24 15:59 XR humerus RT 2V CLINICAL HISTORY: Trauma. Fall. Right arm pain. COMPARISON STUDY: None. FINDINGS: No fracture or dislocation within the right humerus. Soft tissues are unremarkable. No radiopaque foreign bodies. IMPRESSION: No fractures within the right humerus. ACT 112: Negative or not required by law. Electronically signed by: Elmer Arizmendi M.D. 01/04/2024 5:30 PM Chest X-Ray 01/04/24 16:00 XR chest 1V portable HISTORY: Chest pain, nonspecific COMPARISON: Chest CT 12/13/2023. FINDINGS: No pneumothorax. No pleural effusions. Mild emphysema and mild cardiomegaly again noted. No new focal lung consolidations to suggest a pneumonia. No evidence for pulmonary edema. No acute fractures identified. IMPRESSION: No significant change compared to the prior study. No acute process. ACT 112: Negative or not required by law. Electronically signed by: Elmer Arizmendi M.D. 01/04/2024 5:32 PM Medications Administered Discontinued Medications Aspirin (Aspirin 81 Mg Chew) 243 mg PO NOW STA Stop: 01/04/24 21:57 Last Admin: 01/04/24 22:52 Dose: 243 mg Documented By: WILLEM Sodium Chloride (Nss) 250 mls @ 999 mls/hr IV .Q16M ONE Stop: 01/04/24 16:16 Last Infusion: 01/04/24 19:40 Dose: Infused Documented By: Admin: 01/04/24 17:24 Dose: 999 mls/hr Documented By: ES ECG Additional Comments: Per my interpretation (Aleah Moore) EKG with SR at 70bpm, TJ=074, RHR=818, CHg=497, LVH with ventricular hypertrophy, pACs present Per review of prior EKGs, patient with pre-existing conduction abnormality with QRS widening, prior LBBB. No prior AF noted on EKGs Code Status & VTE Plan Code Status Full code (discussed with patient at bedside and informed of benefits/risks of procedures involving cardiac arrest and potential quality of life following these procedures; she exhibits capacity at this time, and would like to remain full code at this time) Supervising Physician Co-Signing Physician Notes Patient seen and examined, chart reviewed. I agree with the assessment and plan per CIRILO Higginbotham as above. Patient is an 88yo female with history of HFrEF (30-35% on most recent echo with severe hypokinesis of the LV), vertebrobasilar insufficiency, HTN and COPD presenting with ambulatory dysfunction On exam she is without focal neurologic deficit +S1/S2, regular Lungs CTA Abd soft, NT/ND Labs as above. Significant for elevated troponin which is improving 42.3 --> 31.5 Hgb=11.3, Hct=36.9. Stable CKD with BUN=53, Cr=1.68 MRI has been resulted revealing Scattered punctate areas of acute cortical infarct involving the right frontal cortex, right parietal cortex, right occipital cortex, right zepeda radiata, and within the right internal capsule. Consider embolic source. MRA head with no arterial occlusion of flow limiting stenosis Carotid Dopplers performed - read pending Assessment/Plan 88yo female with subacute CVA likely embolic in nature given multiple punctate areas of infarct. Consider cardio-embolic? Patient with significant LV dysfunction and global hypokinesis of LV, possible thrombus? No infection complaints or risk factors for endocarditis - she did have blood cultures positive for Pasturella multicoda in 2020 which cleared. No AF noted on review of EKGs -Echo with contrast and bubble study ordered - consider LV thrombus vs endocarditis -No ASD noted on prior echo - will not doppler legs at this time -Telemetry monitoring for possible arrhythmia -Await carotid doppler results -Will initiate DAPT for now with ASA and Plavix -Change Atorvastatin from 20mg po twice weekly to 20mg po daily for now to see if she tolerates -PT/OT -Remainder as above PG Care Time/CCT Total # of Minutes Spent Total Time Spent with Patient: Total time spent is greater than 50% in coordination of care (as documented) at patient's floor/unit and/or counseling patient: Coding [place] [address] INT INP/OBS CARE 3/75MIN Patient Type Established Medical Decision Making High Complexity Diagnoses CVA (cerebral vascular accident) I63.9 HTN (hypertension) I10 HFrEF (heart failure with reduced ejection fraction) I50.20 Elevated troponin R77.8 Falls frequently R29.6
[2024-01-04] MEDS ORDERED: PHARMACIST DISCHARGE MED REC CONSULT PRN (20:37)
--- NOTE | 2024-01-04 22:51 | Magnetic Resonance Report ---
Exam(s): MRI HEAD Without Contrast EXAM: MR Head Without Intravenous Contrast CLINICAL HISTORY: Reason for exam: CVA. TECHNIQUE: Magnetic resonance images of the head/brain without intravenous contrast in multiple planes. COMPARISON: No relevant prior studies available. FINDINGS: Brain: Scattered punctate areas of acute cortical infarct involving the right frontal cortex, right parietal cortex, right occipital cortex, right zepeda radiata, and within the right internal capsule. Severe periventricular and subcortical T2/flair hyperintensities consistent with chronic microvascular ischemic changes. Age-related parenchymal atrophy. No acute hemorrhage. No mass-effect. Ventricles: Unremarkable. No ventriculomegaly. Bones/joints: Unremarkable. No acute fracture. Sinuses: Unremarkable as visualized. No acute sinusitis. Mastoid air cells: Unremarkable as visualized. No mastoid effusion. Orbits: Unremarkable as visualized. IMPRESSION: Scattered punctate areas of acute cortical infarct involving the right frontal cortex, right parietal cortex, right occipital cortex, right zepeda radiata, and within the right internal capsule. Consider embolic source. Communications: Verify Receipt Electronically signed by: Hayder Edwards MD 01/04/24 22:50 PM
[2024-01-04] MEDS: ASPIRIN 81 MG CHEW PO STA (22:52)
--- NOTE | 2024-01-04 22:53 | Magnetic Resonance Report ---
Exam(s): MRA HEAD Without Contrast EXAM: MR Angiography Head Without Intravenous Contrast CLINICAL HISTORY: Reason for exam: CVA. TECHNIQUE: Magnetic resonance angiography images of the head without intravenous contrast. COMPARISON: MRI brain on the same day FINDINGS: Right internal carotid artery: No acute findings. Intracranial segment is patent with no significant stenosis. No aneurysm. Right anterior cerebral artery: Unremarkable. No occlusion or significant stenosis. No aneurysm. Right middle cerebral artery: Unremarkable. No occlusion or significant stenosis. No aneurysm. Right posterior cerebral artery: Unremarkable. No occlusion or significant stenosis. No aneurysm. Right vertebral artery: Unremarkable as visualized. Left internal carotid artery: No acute findings. Intracranial segment is patent with no significant stenosis. No aneurysm. Left anterior cerebral artery: Unremarkable. No occlusion or significant stenosis. No aneurysm. Left middle cerebral artery: Unremarkable. No occlusion or significant stenosis. No aneurysm. Left posterior cerebral artery: Unremarkable. No occlusion or significant stenosis. No aneurysm. Left vertebral artery: Unremarkable as visualized. Basilar artery: Unremarkable. No occlusion or significant stenosis. No aneurysm. IMPRESSION: No arterial occlusion or flow limiting stenosis. Electronically signed by: Hayder Edwards MD 01/04/24 22:52 PM
[2024-01-04] MEDS ORDERED: ALBUTEROL HFA 8 GM INHALER INH PRN (23:36)
[2024-01-04] MEDS ORDERED: ACETAMINOPHEN 325 MG TAB PO PRN (23:36)
[2024-01-05] MEDS: LEVOTHYROXINE SODIUM 75 MCG TABLET PO SCH (05:46)
[2024-01-05 06:20] LABS: Basophils # (auto) 0.06 K/uL (0.00-0.20); Basophils % (auto) 0.9 %; Eosinophils # (auto) 0.27 K/uL (0.00-0.50); Hematocrit (blood only) 33.8 % (37.0-47.0); Hemoglobin 11.1 g/dl (12.0-16.0); Immature Granulocytes # (auto) 0.02 K/uL (0.01-0.20); Immature Granulocytes % (auto) 0.3 %; Lymphocytes # (auto) 1.92 K/uL (1.20-3.40); Lymphocytes % (auto) 28.5 %; Mean Corpuscular Hemoglobin 31.5 pg (25.0-34.0); Mean Corpuscular Hgb Conc 32.8 g/dL (32.0-36.0); Mean Platelet Volume 9.9 fL (9.4-12.4); Monocytes # (auto) 0.61 K/uL (0.11-0.59); Monocytes % (auto) 9.1 %; Neutrophils # (auto) 3.85 K/uL (1.40-6.50); Neutrophils % (auto) 57.2 %; Platelet Count 217 K/uL (130-400); RDW Coefficient of Variation 13.1 % (11.5-14.5); RDW Standard Deviation 46.4 fL (36.4-46.3); Red Blood Count 3.52 M/uL (4.20-5.40); White Blood Count 6.73 K/ul (4.8-10.8)
[2024-01-05 06:40] LABS: BUN Creatinine Ratio 29.3 (10-20); Calcium 9.3 mg/dl (8.6-10.3); Chol HDL Ratio 1.8 (0-5); Creatinine Clr Calc Pharmacy 23.3 ml/min; Est GFR (African American) 35.4 ml/min; Est GFR (Non-African American) 30.6 ml/min; Potassium 4.5 mmol/L (3.5-5.1)
[2024-01-05 07:31] LABS: Estimated Average Glucose 111 mg/dl; Hemoglobin A1C 5.5 % (4.5-5.6)
[2024-01-05] MEDS: ASPIRIN 81 MG ECTAB PO SCH (09:48)
[2024-01-05] MEDS: MAGNESIUM OXIDE 400 MG TAB PO SCH (09:49)
[2024-01-05] MEDS: CLOPIDOGREL BISULFATE 75 MG TAB PO SCH (09:51)
[2024-01-05] MEDS: UMECLIDINIUM/VILANTEROL 62.5/25MCG 7 PUFFS/INHALER INH SCH (09:52)
--- NOTE | 2024-01-05 10:02 | Neurology Consultation ---
Date of Consultation January 05, 2024 Assessment & Plan (1) Embolic stroke: (2) Near syncope: Plan 88-year-old female with a history of postural dizziness, near-syncope, syncope, recurrent falls, heart failure with reduced ejection fraction, moderate to severely reduced left ventricular systolic function with moderate to severe global hypokinesis of the left ventricle on echocardiogram done last month. Presenting with recurrent dizziness, recent fall, ambulatory dysfunction. Patient found to have an embolic appearing infarct on brain MRI completed yesterday with evidence of acute ischemic infarcts within the right thalamus, right zepeda radiata, right frontal lobe, right parietal lobe, and posterior right occipital lobe. She also has fairly extensive chronic cerebrovascular disease with a probable old chronic infarct within the deep left frontal lobe. These recently discovered acute infarcts appear to be an incidental discovery in the sense that they would not really explain her presenting symptoms, which are actually chronic and recurrent. Her neurological examination is grossly intact although she is modestly hyperreflexive for the right lower limb and has some reduced movement initiation. I suspect this finding is chronic and likely related to her chronic extensive cerebrovascular disease as well as old left hemispheric infarct. As above, her recent stroke does appear embolic based on its overall distribution involving multiple vascular territories including both the anterior and posterior circulation (notable involvement of the right occipital lobe as well as right MCA territories. She does not have a origin of the right [employer].) Her recent carotid Doppler appears to be normal although I note her previous CT angiogram of the neck from April 2022 indicated a 70% stenosis of the proximal cervical segment of the right ICA. This study had also revealed a high-grade stenosis at the origin of the right subclavian artery. Her presentation does not seem highly consistent with subclavian steal syndrome. There was also a proximal occlusion of the right vertebral artery with distal reconstitution. Her symptoms are not highly suggestive of vertebrobasilar insufficiency. Given that her recent infarct appears embolic, and again, involves multiple vascular territories including the posterior circulation, I do have some suspicion for a cardioembolic event. Her implanted loop recorder has not revealed atrial fibrillation although she has had some atrial ectopy at times. She does have a moderate to severely reduced left ventricular systolic function with global hypokinesis of the left ventricle. I would recommend checking an up-to-date echocardiogram, with bubble study. It does not appear as if her previous recent echocardiograms have included a bubble study. Paradoxical embolism could be considered. She does not appear to have a lower extremity DVT. Could consider obtaining a lower extremity ultrasound as well. Her lipid panel appears appropriate, continue with atorvastatin as ordered. For the time being, I agree with the addition of clopidogrel to her medication regimen, dual antiplatelet therapy with aspirin and clopidogrel for 3 weeks, followed by transition to clopidogrel monotherapy. However, if a repeat up-to-date echocardiogram with bubble study if potentially suggestive of cardioembolic source, would consider anticoagulation with Eliquis. Again, she does have a moderate to severely reduced ejection fraction and hypokinesis of the left ventricle. I wonder if she could have a left ventricular thrombus. A PFO could also be found, if present, would assess for lower extremity DVT. This patient is a significant fall risk, however, with multiple falls occurring every few months. Anticoagulation may not be a good option for her unless if a more definitive indication for anticoagulation is found such as atrial fibrillation or left ventricular thrombus. Continue medical management of blood pressure, allow for permissive hypertension, systolic blood pressure goal 140 to 160 mmHg acutely. Please call with any questions. History of Present Illness Reason for Consultation: Rachell Requesting Physician: stroke Attending Physician: Camila Lovett MD History of Present Illness The patient is an 88-year-old female with a history of postural dizziness, presyncope, syncope, recurrent falls, heart failure with reduced ejection fraction, implanted loop recorder, who presented to the emergency department yesterday with a complaint of dizziness, balance difficulty, fall 10 days ago, reportedly struck her head. She describes a feeling of dizziness that occurs while standing, denies vertigo. Episodes last only a few moments. She has had neurological assessments before with Dr. Dixon, as well as with Dr. Nicole. An EEG completed in August 2022 was normal. A brain MRI completed yesterday revealed multiple punctate acute ischemic infarcts within the right cerebral hemisphere, frontal lobe, parietal lobe, occipital lobe, right zepeda radiata and internal capsule. I independently reviewed these images, there is also an area of i schemic injury within the right posterior occipital lobe. There is extensive chronic small vessel ischemic disease as well. An MRA of the head was unremarkable. A previous MRA of the neck done in April 2022 revealed an occlusion within the right V1 segment of the right vertebral artery with reconstitution of flow at the distal V2 segment at the level of C1-2. There was also a 70% stenosis of the proximal cervical segment of the right internal carotid artery. There was high-grade stenosis at the origin of the right subclavian artery. Patient's loop recorder has revealed atrial ectopy, a pparently no true pauses or bradycardia, and adequate sensing per overedge sewer interpretation. No A-fib. An echocardiogram completed November 30, 2023 revealed borderline dilated left ventricle, moderate to severely reduced left ventricular systolic function, EF 30 to 35%, moderate to severe global hypokinesis of the left ventricle. Left atrium moderately dilated. Interatrial septum intact, no ASD. It does not look like any of her recent echocardiograms have had a bubble study. Allergies Allergy/AdvReac Type Severity Reaction Status Date / Time latex Allergy Intermediate SEVERE Verified 01/04/24 13:55 ITCHING cephalexin Allergy Mild RASH Verified 01/04/24 13:55 Home Medications Medication Instructions Recorded Confirmed Type cholecalciferol (vitamin D3) 125 125 mcg PO DAILY 10/02/19 01/04/24 History mcg (5,000 unit) tablet albuterol sulfate 90 mcg/actuation 2 puff inhalation Q4H PRN 04/10/21 01/04/24 History aerosol inhaler Shortness Of Breath #1 g calcium carbonate (Calcium 600) 1,200 mg PO DAILY 06/16/21 01/04/24 History lactobacillus combination no.4 3 6,000 mmu cells PO DAILY 06/16/21 01/04/24 History billion cell capsule (Probiotic) magnesium 250 mg tablet 250 mg PO DAILY #30 tabs 10/09/21 01/04/24 Rx fluticasone propionate 50 1 - 2 spray intranasal DAILY #18.2 02/05/22 01/04/24 Rx mcg/actuation nasal mL spray,suspension nitroglycerin 0.4 mg sublingual 0.4 mg sublingual UD PRN chest 05/02/22 01/04/24 Rx tablet (Nitrostat) pain #1 btl aspirin 81 mg tablet,delayed 81 mg PO DAILY 07/06/22 01/04/24 History release vitamins A,C,D-rinl-srsvim 4,296 1 cap PO DAILY 12/14/22 01/04/24 History mcg-226 mg-90 mg capsule (PreserVision AREDS) cranberry fruit concentrate 250 mg 250 mg PO BID 02/15/23 01/04/24 History chewable tablet (Azo Cranberry) levothyroxine 75 mcg capsule 75 mcg PO DAILY #90 caps 04/13/23 01/04/24 Rx lisinopril 10 mg tablet 10 mg PO DAILY #90 tabs 04/26/23 01/04/24 Rx carboxymethylcellulose sodium 1 % 1 drp ophthalmic (eye) BID 08/09/23 01/04/24 History eye liquid gel drops (Refresh Liquigel) atorvastatin 20 mg tablet 20 mg PO 2XWK 11/30/23 01/04/24 History umeclidinium 62.5 mcg-vilanterol 1 inh inhalation DAILY 11/30/23 01/04/24 History 25 mcg/actuation powdr for inhalation (Anoro Ellipta) Saccharomyces boulardii 250 mg 250 mg PO BID #20 caps 12/13/23 01/04/24 Rx capsule (Florastor) triamterene 37.5 1 cap PO .QOD #45 caps 12/26/23 01/04/24 Rx mg-hydrochlorothiazide 25 mg capsule diclofenac sodium 1 % topical gel See Rx Instructions .Route 12/28/23 01/04/24 Rx .COMPLEX #300 grams carvedilol 3.125 mg tablet 3.125 mg PO BID #180 tabs 01/02/24 01/04/24 Rx Patient History Medical History Vertebrobasilar insufficiency Moderate mitral regurgitation HFrEF (heart failure with reduced ejection fraction) EF 30% - 2023 echo Chronic kidney disease, stage IV (severe) Hypothyroidism Impaired fasting glucose Falls frequently Anemia Syncope (08/2022) Chest pain at rest Subclavian artery stenosis, right Chronic cerebral ischemia Vertebral artery stenosis Carotid stenosis, right Acute chest wall pain LBBB (left bundle branch block) Acute severe vertigo Pasteurella infection with bacteremia, 2nd to cat scratch and RUE cellulitis - 06/16 CKD (chronic kidney disease), stage III COVID-09/2021 - required hospitalization Acute on chronic systolic heart failure Chronic kidney disease, stage IV (severe) Pseudogout of hand Septic arthritis of hand, right Gram-negative bacteremia Right arm cellulitis Situational anxiety ARF (acute renal failure) UTI (urinary tract infection) recurrent Balance problems Bradycardia Secondary hypothyroidism Nocturia Arthritis, multiple joint involvement COPD (chronic obstructive pulmonary disease) Osteoporosis Hypercholesterolemia HTN (hypertension) Surgical History History of rotator cuff surgery Jul 2011--Dr. Whitten History of carpal tunnel surgery History of myringotomy History of inguinal hernia repair History of bunionectomy History of breast biopsy Hx of adenoidectomy Hx of tonsillectomy H/O: hysterectomy S/P appendectomy S/P cholecystectomy Family History Mother , in her 80s of multiple CVAs Alzheimer disease Stroke Father , age 78 of COPD complications Emphysema, unspecified COPD (chronic obstructive pulmonary disease) Grandfather (Maternal) Colorectal cancer Uncle Prostate cancer Denies family history of Ovarian cancer Diabetes Coronary heart disease Heart disease Myocardial infarction Breast cancer Lung cancer Social History Smoking Status: Former smoker Tobacco Type: Cigarettes Age Started Using Tobacco: 23; Age Quit Using Tobacco: 61; Cigarettes Per Day: 1 ppd; Second Hand Exposure: No; Do You Dip or Chew Tobacco: No; Hx Alcohol Use: No Hx Substance Use: No Preferred Language: Arabic Communication Ability: Effective Visual Impairment: Limited Hearing Ability: Use of Hearing Aid Commercial Front Load [employer] Required: No Beliefs That Will Affect Care: None marital status: Current Living Situation: Alone Current Living Situation Comment: independent elderly apartment current occupational 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[employer], 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 How many Children do You have: 2 Feels Safe at Home: Yes Safety Concerns: Feels Safe At This Time Childhood Exposure to Second-Hand Smoke: Yes Diet: regular caffeine: Yes Dental Care, Regularly: No Physical Activity Frequency: Does not Exercise Seatbelt Use: always Sunscreen Use: No Assistive Devices: Denture - Upper, Denture - Lower, Glasses and Hearing Aid - Bilateral Review of Systems Constitutional: no fever and no chills Eyes: no blind spots and no diplopia Ear, Nose, Mouth, Throat: + hearing loss Respiratory: no cough and no dyspnea Cardiovascular: + palpitations; no chest pain Gastrointestinal: no nausea and no vomiting Genitourinary: no dysuria Musculoskeletal: no neck pain and no myalgia Integumentary: no rash and no lesions Neurologic: as per Subjective / HPI, + gait abnormality, + unsteadiness and + dizziness; no localized weakness, no loss of sensation, no tremor(s), no abnormal movements, no headache(s), no abnormal speech, no confusion and no memory loss Psychiatric: no depression and no anxiety Hematologic / Lymphatic: no easy bleeding and no easy bruising Exam (Neuro) Constitutional: well developed and + frail appearing; no acute distress Neurologic: Oriented to:: Person, Place and Time Memory: Short Term Intact and Remote Intact Attention: Span Intact and Concentration Intact Speech Fluency: negative Dysarthria or Dysfluency Speech Aphasia: negative Aphasia Fund of Knowledge: Current Events, Past History and Vocabulary Cranial Nerves: Normal II, III, IV, , V, VII, IX, X, XI and XII; Abnorm VIII Motor Strength: Normal Lower Extremities and Normal Upper Extremities Motor Tone: Normal Lower Extremities and Normal Upper Extremities Muscle Bulk/Involuntary Movements: No Involuntary Movements; negative Muscle Atrophy Sensation: Light Touch Intact, Pain/Temperature Intact and Proprioception Intact Coordination: Heel-Gordon Abnormal Laterality: Right; negative Dysdiadochokinesia or Finger-Nose Abnormal Deep Tendon Reflexes: Rt Triceps: 2+, Lt Triceps: 2+, Rt Biceps: 2+, Lt Biceps: 2+, Rt Brachioradialis: 2+, Lt Brachioradialis: 2+, Rt Patellar: 3+ and Lt Patellar: 2+ Special Tests: Babinski Present (right) Details: Gait not tested Results & Data Vital Signs (Past 12 Hours) Vital Signs Temp Pulse Pulse Resp BP Pulse Ox O2 Del Method 01/05/24 08:57 36.9 C 68 16 145/61 H 93 Room Air 01/05/24 03:00 36.5 C 69 19 150/65 H 95 Room Air 01/05/24 00:42 73 01/04/24 23:36 36.6 C 72 19 129/72 93 Room Air 01/04/24 23:35 36.6 C 72 16 129/72 93 Room Air 01/04/24 23:05 Room Air Laboratory Results WBC 6.73, hemoglobin 11.1, hematocrit 33.8, platelet count 217, sodium 141, potassium 4.5, BUN 44, creatinine 1.50, glucose 92, hemoglobin A1c 5.5, calcium 9.3, magnesium 2.0, AST 19, ALT 12, troponin mildly elevated, 31.5, triglycerides 77, cholesterol 141, LDL 49, HDL 77 TSH 1.166 Diagnostic Findings MRI and MRA of the brain are as described in the HPI, I independently reviewed these images. Carotid Doppler completed as well, no evidence of hemodynamically significant stenosis in either the right or left carotid system, antegrade flow in both vertebral arteries. (This result does not seem congruent with her previous CTA of the neck completed in April 2022 which revealed a 70% stenosis of the proximal cervical right ICA.) Coding Level of Care Code 91438 INT INP/OBS CARE 3/75MIN Diagnoses Embolic stroke I63.9 Near syncope R55 Time Spent (min) 90 Comment Total time includes patient contact, chart review, counseling, note preparation
--- NOTE | 2024-01-05 10:06 | Ultrasound Report ---
ULTRASOUND OF THE CAROTID ARTERIES CLINICAL HISTORY: CVA TECHNIQUE: Real-time, grayscale, and color Doppler sonography of the bilateral carotid arteries is pe rformed. Images are reviewed in the transverse and longitudinal planes. COMPARISON: None available at the time of this dictation. FINDINGS: The carotid arteries are patent bilaterally and demonstrate antegrade flow. There is severe atheroscl erotic plaque on the right and moderate atherosclerotic plaque on the left. Normal doppler arterial w aveforms are seen throughout. Velocity measurements are listed below. Common carotid peak systolic velocity (cm/sec): RIGHT: 53 LEFT: 56 ICA peak systolic velocity (cm/sec): RIGHT: 64 LEFT: 79 ICA/CC peak systolic ratio: RIGHT: 1.2 LEFT: 1.4 Antegrade flow was shown in the vertebral arteries. The external carotid arteries are patent. IMPRESSION: 1. There is no sonographic evidence of hemodynamically significant stenosis in the right or left car otid arterial system. 2. Antegrade flow is shown in the vertebral arteries. Society of Radiologists in Ultrasound consensus guidelines: Normal: ICA PSV is <125 cm/sec and no plaque or intimal thickening is visible sonographically additional criteria include ICA/CCA PSV ratio <2.0 and ICA EDV <40 cm/sec <50% ICA stenosis: ICA PSV is <125 cm/sec and plaque or intimal thickening is visible sonographically additional criteria include ICA/CCA PSV ratio <2.0 and ICA EDV <40 cm/sec 50-69% ICA stenosis: ICA PSV is 125-230 cm/sec and plaque is visible sonographically additional criteria include ICA/CCA PSV ratio of 2.0-4.0 and ICA EDV of 40-100 cm/sec ?70% ICA stenosis but less than near occlusion: ICA PSV is >230 cm/sec and visible plaque and luminal narrowing are seen at faria-scale and color Dopp ler ultrasound (the higher the Doppler parameters lie above the threshold of 230 cm/sec, the greater the likelihood of severe disease) additional criteria include ICA/CCA PSV ratio >4 and ICA EDV >100 cm/sec ACT 112: Negative or not required by law. Electronically signed by: Jeff Mccollum M.D. 01/05/2024 10:05 AM
[2024-01-05] MEDS: ATORVASTATIN 20 MG TAB PO SCH (11:22)
--- NOTE | 2024-01-05 12:01 | Pharmacy Report ---
- Date of Service January 05, 2024 - Pharmacy CVA/TIA Medication Review Medications to Prevent Stroke handout has been added to the patients discharge packet. Antiplatelet(s) * Aspirin, clopidogrel Cholesterol * Discussed w Dr. Jenkins - high intensity statin deferred due to lipid panel as risk/benefit doesn't favor high intensity, especially with age >75 DVT Prophylaxis * Enoxaparin SQ Therapeutic Anticoagulation * No history of Afib/Aflutter noted, however per Dr. Jenkins's note, distribution on imaging does raise suspicion for cardioembolic stroke. If additional work- up reveals Afib, apixaban should be considered. However, it would also be reasonable to defer anticoagulation even with Afib due to frequent falls and risk for bleeding associated with therapeutic anticoagulation. Type 2 Diabetes * Patient does not have T2DM
[2024-01-05] MEDS: ENOXAPARIN INJ 30 MG/0.3 ML SYR SQ SCH (13:53)
--- NOTE | 2024-01-05 17:30 | XCELERA ---
[id number] \\[id number]
--- NOTE | 2024-01-05 17:31 | Hospitalist Progress Note ---
Date of Service January 05, 2024 Assessment & Plan (1) CVA (cerebral vascular accident): Plan: Patient sent in by her PCP on 01/03 ongoing dizziness and balance issues with recent falls Fall on 12/25: patient struck head and right shoulder, but did not come to the hospital at this time Head CT on arrival revealed 7mm hyperdense focus in the right internal capsule which could indicate acute to subacute infarct No prior hx of stroke No facial droop, slurred speech, or unilateral deficits appreciated on clinical exam Brain MRI showed multiple punctate CVAs in the right frontal, parietal, occipital, and zepeda radiata indicative of embolic source Due to renal insufficiency, no contrast was used and obtained head MRA which was negative for stenosis or occlusion, and B/L carotid dopplers did not show any hemodynamically significant stenosis However, previous CTA of the neck did show a right-sided 70% carotid artery stenosis-will check CT angiogram of the neck to further clarify and refer to vascular surgery if positive Echocardiogram here with bubble study shows improved EF 40-45%, global hypokinesis of LV, moderate LVH, mild MR, negative bubble study Neurology consultation placed-appreciate recommendations-does not feel that symptoms of dizziness and falls are related to the strokes and that the strokes are an incidental finding. Agrees with starting dual antiplatelet therapy x 3 weeks followed by transition to Plavix monotherapy. As bubble study is negative, no need for lower extremity Doppler. Will have loop recorder interrogated for atrial fibrillation/flutter. This should continue to be monitored and she should be started on anticoagulation if any A-fib or flutter is found in the future Continue stroke scale checks and neurochecks q4h Continue aspirin 81mg daily and Plavix 75mg daily Lipid panel is acceptable and her atorvastatin was increased to 20 mg daily up from twice a week as she has myalgias-add co-Q10 for myalgias as an outpatient Hemoglobin A1c is normal Blood pressures are mildly elevated but will allow permissive hypertension- holding home Dyazide, lisinopril, and she already stopped her home carvedilol PT/OT consulted and recommending rehab given history of falls Check CTA neck and consult vascular if appropriate (2) HTN (hypertension): Plan: Per review of last Cardio note, has been a difficult balance between managing her HTN in the setting of CVD and recurrent falls/syncope Patient reports she has not been taking her carvedilol, as she is worried this contributes to her falls as it made her very dizzy Continue to hold lisinopril and would not restart home Dyazide given frequent orthostasis Check orthostatics again in the morning She is no longer taking carvedilol as it made her very dizzy Could consider low-dose Toprol-XL (3) HFrEF (heart failure with reduced ejection fraction): Plan: Echocardiogram on 11/30/2023 revealed LVEF at 30-35%; severe global hypokinesis of left ventricle; elevated RVSP; no evidence of ASD Repeat echocardiogram here with improved LV function of 40-45% Prior difficulty with Lasix; recently discharged on 12/01 on triamterene-HCTZ but will now discontinue this due to dizziness Can take as needed Dyazide for weight gain or lower extremity edema Low-sodium diet, daily weights Consider adding on low-dose Toprol-XL for HFrEF but avoid diuretics for now. Add home lisinopril back on tomorrow Follows with cardiology (4) Elevated troponin: Plan: Troponin 42->31 on arrival Clinically patient denies chest pain and no wall motion abnormalities on echocardiogram ECG without ischemic changes Continuous telemetry (5) Falls frequently: Plan: 2 falls in the last month and numerous episodes of syncope and presyncope in the past. Cervical spine CT, right humerus x-ray, and chest x-ray without acute fractures Has loop recorder in place which has not shown any significant arrhythmias thus far Thoughts in the past were that she had orthostasis and perhaps vertebrobasilar insufficiency Attempts to avoid hypovolemia and hypotension and medications that can cause these Some of her events have been related to moving her bowels and urinating and she did have urinary retention here-ensure bowels are moving properly and urine is draining properly as these events may have been vasovagal Stop Dyazide, holding lisinopril, stop carvedilol Fall precautions Needs rehab (6) Hypothyroidism: Plan: TSH here is normal at 1.1 Continue home levothyroxine 75 mcg daily (7) Constipation: Plan: Chronic issue but improved on probiotics Resume home probiotics (8) Urinary retention: Plan: Retained urine and straight cathed for 400 mL on 01/04 Could be related to history of chronic constipation She is not on any medications that would cause urinary retention Follow bladder scans (9) CKD (chronic kidney disease), stage III: Plan: Creatinine elevated but at baseline at 1.5 Stopping Dyazide, holding lisinopril for permissive hypertension Avoid nephrotoxins and renally dose medications Giving contrast for CT angiogram of the neck-monitor BMP Watch urine output Plan Disposition: Continued stay on PCU telemetry, plan for rehab at [facility] and would be medically stable for discharge most likely on 01/05 pending CTA neck results Full code VTE PPx: Add Lovenox SQ Discussed care with daughter on the phone on the evening of 01/04 Admission and Anticipated Discharge Date Admission Date: January 04, 2024 Subjective Pt not feeling well but can't describe why. Denies headache, CP, SOB. No weakness or slurred speech.Had urinary retention requiring straight cath Has a h/o constipation Tele with multiple short runs of AT, frequent PACs, PVCs, otherwise SR 1st degree AVB, rates 60-70s Physical Exam Constitutional: WD/WN, vitals as above Respiratory: normal respiratory effort, lungs clear to auscultation Cardiovascular: RRR, no murmur, no edema Gastrointestinal (Abdomen): normal bowel sounds, soft, nontender, no hepatosplenomegaly Neurologic: PERRL, EOMI, accommodation nl, no face palsy, no dysarthria no focal motor deficits Motor/Sensory: no tremor Psychiatric: Orientation: alert and oriented x 3 Results & Data Results & Data Vital Signs (Past 12 Hours) Vital Signs Temp Pulse Pulse Resp BP Pulse Ox O2 Del Method 01/05/24 16:42 72 01/05/24 15:11 36.7 C 69 17 155/68 H 94 Room Air 01/05/24 11:38 36.8 C 64 19 150/62 H 94 Room Air 01/05/24 10:00 63 01/05/24 08:57 36.9 C 68 16 145/61 H 93 Room Air Laboratory Results CBC, BMP, lipids, troponin reviewed Diagnostic Findings Brain MRI 01/04/24 20:37 CR Exam(s): MRI HEAD Without Contrast EXAM: MR Head Without Intravenous Contrast CLINICAL HISTORY: Reason for exam: CVA. TECHNIQUE: Magnetic resonance images of the head/brain without intravenous contrast in multiple planes. COMPARISON: No relevant prior studies available. FINDINGS: Brain: Scattered punctate areas of acute cortical infarct involving the right frontal cortex, right parietal cortex, right occipital cortex, right zepeda radiata, and within the right internal capsule. Severe periventricular and subcortical T2/flair hyperintensities consistent with chronic microvascular ischemic changes. Age-related parenchymal atrophy. No acute hemorrhage. No mass-effect. Ventricles: Unremarkable. No ventriculomegaly. Bones/joints: Unremarkable. No acute fracture. Sinuses: Unremarkable as visualized. No acute sinusitis. Mastoid air cells: Unremarkable as visualized. No mastoid effusion. Orbits: Unremarkable as visualized. IMPRESSION: Scattered punctate areas of acute cortical infarct involving the right frontal cortex, right parietal cortex, right occipital cortex, right zepeda radiata, and within the right internal capsule. Consider embolic source. Communications: Verify Receipt Electronically signed by: Hayder Edwards MD 01/04/24 22:50 PM Head MRA 01/04/24 20:40 Exam(s): MRA HEAD Without Contrast EXAM: MR Angiography Head Without Intravenous Contrast CLINICAL HISTORY: Reason for exam: CVA. TECHNIQUE: Magnetic resonance angiography images of the head without intravenous contrast. COMPARISON: MRI brain on the same day FINDINGS: Right internal carotid artery: No acute findings. Intracranial segment is patent with no significant stenosis. No aneurysm. Right anterior cerebral artery: Unremarkable. No occlusion or significant stenosis. No aneurysm. Right middle cerebral artery: Unremarkable. No occlusion or significant stenosis. No aneurysm. Right posterior cerebral artery: Unremarkable. No occlusion or significant stenosis. No aneurysm. Right vertebral artery: Unremarkable as visualized. Left internal carotid artery: No acute findings. Intracranial segment is patent with no significant stenosis. No aneurysm. Left anterior cerebral artery: Unremarkable. No occlusion or significant stenosis. No aneurysm. Left middle cerebral artery: Unremarkable. No occlusion or significant stenosis. No aneurysm. Left posterior cerebral artery: Unremarkable. No occlusion or significant stenosis. No aneurysm. Left vertebral artery: Unremarkable as visualized. Basilar artery: Unremarkable. No occlusion or significant stenosis. No aneurysm. IMPRESSION: No arterial occlusion or flow limiting stenosis. Electronically signed by: Hayder Edwards MD 01/04/24 22:52 PM Carotid Doppler Study 01/05/24 00:00 ULTRASOUND OF THE CAROTID ARTERIES CLINICAL HISTORY: CVA TECHNIQUE: Real-time, grayscale, and color Doppler sonography of the bilateral carotid arteries is performed. Images are reviewed in the transverse and longitudinal planes. COMPARISON: None available at the time of this dictation. FINDINGS: The carotid arteries are patent bilaterally and demonstrate antegrade flow. There is severe atherosclerotic plaque on the right and moderate atherosclerotic plaque on the left. Normal doppler arterial waveforms are seen throughout. Velocity measurements are listed below. Common carotid peak systolic velocity (cm/sec): RIGHT: 53 LEFT: 56 ICA peak systolic velocity (cm/sec): RIGHT: 64 LEFT: 79 ICA/CC peak systolic ratio: RIGHT: 1.2 LEFT: 1.4 Antegrade flow was shown in the vertebral arteries. The external carotid arteries are patent. IMPRESSION: 1. There is no sonographic evidence of hemodynamically significant stenosis in the right or left carotid arterial system. 2. Antegrade flow is shown in the vertebral arteries. Society of Radiologists in Ultrasound consensus guidelines: Normal: ICA PSV is <125 cm/sec and no plaque or intimal thickening is visible sonographically additional criteria include ICA/CCA PSV ratio <2.0 and ICA EDV <40 cm/sec <50% ICA stenosis: ICA PSV is <125 cm/sec and plaque or intimal thickening is visible sonographically additional criteria include ICA/CCA PSV ratio <2.0 and ICA EDV <40 cm/sec 50-69% ICA stenosis: ICA PSV is 125-230 cm/sec and plaque is visible sonographically additional criteria include ICA/CCA PSV ratio of 2.0-4.0 and ICA EDV of 40-100 cm/sec ?70% ICA stenosis but less than near occlusion: ICA PSV is >230 cm/sec and visible plaque and luminal narrowing are seen at faria-scale and color Doppler ultrasound (the higher the Doppler parameters lie above the threshold of 230 cm/sec, the greater the likelihood of severe disease) additional criteria include ICA/CCA PSV ratio >4 and ICA EDV >100 cm/sec ACT 112: Negative or not required by law. Electronically signed by: Jeff Mccollum M.D. 01/05/2024 10:05 AM PG Care Time/CCT Total # of Minutes Spent Total Time Spent with Patient: Total time spent is greater than 50% in coordination of care (as documented) at patient's floor/unit and/or counseling patient: Coding Level of Care Code 84649 SUB INP/OBS CARE 3/50MIN Diagnoses CVA (cerebral vascular accident) I63.9 HTN (hypertension) I10 HFrEF (heart failure with reduced ejection fraction) I50.20 Elevated troponin R77.8 Falls frequently R29.6 Hypothyroidism E03.9 Constipation K59.00 Urinary retention R33.9 CKD (chronic kidney disease), stage III N18.30
[2024-01-05] MEDS: ONDANSETRON INJ 2 MG/ML 2 ML VIAL IV PRN (20:22)
[2024-01-05] MEDS: SACCHAROMYCES BOULARDII 250 MG CAP PO SCH (20:44)
[2024-01-05] MEDS: OPTIRAY 320 125ml IV ONE (21:42)
[2024-01-06 06:27] LABS: Basophils # (auto) 0.05 K/uL (0.00-0.20); Basophils % (auto) 0.8 %; Eosinophils # (auto) 0.35 K/uL (0.00-0.50); Eosinophils % (auto) 5.9 %; Hemoglobin 10.6 g/dl (12.0-16.0); Immature Granulocytes # (auto) 0.02 K/uL (0.01-0.20); Immature Granulocytes % (auto) 0.3 %; Lymphocytes # (auto) 1.33 K/uL (1.20-3.40); Lymphocytes % (auto) 22.3 %; Mean Corpuscular Hemoglobin 30.5 pg (25.0-34.0); Mean Corpuscular Hgb Conc 31.2 g/dL (32.0-36.0); Mean Platelet Volume 9.9 fL (9.4-12.4); Monocytes # (auto) 0.55 K/uL (0.11-0.59); Monocytes % (auto) 9.2 %; Neutrophils # (auto) 3.67 K/uL (1.40-6.50); Neutrophils % (auto) 61.5 %; Platelet Count 193 K/uL (130-400); RDW Coefficient of Variation 13.2 % (11.5-14.5); RDW Standard Deviation 46.7 fL (36.4-46.3); Red Blood Count 3.47 M/uL (4.20-5.40); White Blood Count 5.97 K/ul (4.8-10.8)
[2024-01-06 06:42] LABS: BUN Creatinine Ratio 25.6 (10-20); Calcium 9.1 mg/dl (8.6-10.3); Creatinine Clr Calc Pharmacy 21.8 ml/min; Est GFR (African American) 32.8 ml/min; Est GFR (Non-African American) 28.3 ml/min; Magnesium 1.9 mg/dl (1.7-2.4); Potassium 4.3 mmol/L (3.5-5.1)
--- NOTE | 2024-01-06 08:35 | CT Scan Report ---
CT angio neck with con CLINICAL HISTORY: 88 years-old Female with Multiple embolic strokes on right side. Acute strokelik e symptoms COMPARISON STUDY: CT cervical spine 01/04/2024, brain MRI 01/04/2024 TECHNIQUE: Following the IV administration of 117 mL of Optiray, CT angiogram of the neck was perform ed from the aortic arch to the skull base. Images are reviewed in the axial, sagittal, and coronal pl anes. 3-D MIPS images are created and assessed. IV contrast was administered without complication. Al l measurements were calculated based on NASCET criteria. A dose lowering technique was utilized adhe ring to the principles of ALARA. CT DOSE: 397.59 mGy.cm FINDINGS: Atherosclerosis. There is moderate narrowing within the proximal left subclavian artery with high-gra de stenosis within the proximal right subclavian artery. The common carotid arteries demonstrate mode rate atherosclerosis without high-grade stenosis. Calcified plaque of the carotid bulbs. There is no significant stenosis at the origin of the left ICA. There is 70% stenosis at the origin of the right ICA. Dominant left vertebral artery. The vertebral arteries are patent bilaterally. The visualized ba silar artery is patent. Pulmonary emphysema without pneumothorax. Partially calcified 11 mm left apical nodular density. Unre markable soft tissues. The imaged intracranial structures are better evaluated on the comparison brai n MRI. Degenerative changes of the cervical spine. IMPRESSION: 1. Atherosclerosis results in high-grade stenosis of the proximal right subclavian and right internal carotid arteries. 2. Moderate stenosis of the proximal left subclavian artery. 3. Pulmonary emphysema. ACT 112: Negative or not required by law. The above report was generated using voice recognition software. It may contain grammatical, syntax o r spelling errors. Electronically signed by: Chema Salcedo M.D. 01/06/2024 8:34 AM
[2024-01-06] MEDS ORDERED: ATORVASTATIN 20 MG TAB PO SCH (09:00)
--- NOTE | 2024-01-06 11:32 | Consultation ---
Date of Consultation January 06, 2024 Assessment & Plan (1) Carotid stenosis, right: She does have approximately 70% stenosis of her right internal carotid artery on CT angiogram. This is unchanged from a study done in 2021 when we last saw her for the same complaints and same diagnostic studies. Her MRI is consistent with embolic source of her defects. Its both posterior and anterior circulation. I would favor more cardiac or arch source of her embolic events on her MRI scan. No intervention is required for her 70% stenosis of the right internal carotid artery. If she should develop focal findings consistent with TIAs or strokes involving the right hemisphere then reevaluation of the right carotid will be needed. (2) Subclavian arterial stenosis: On her CT she also has a severe stenosis of her right subclavian artery proximally. There is also moderate stenosis of the left subclavian artery. She does not have any symptoms consistent with vertebrobasilar insufficiency. There is no evidence of steal syndrome present at this time. She is totally asymptomatic with her right upper extremity as far as complaints of claudication goes. There is no indication for any intervention to be the subclavian artery at this point. I do recommend that we obtain blood pressures in the left upper extremity being that the subclavian stenosis is less on that side. The patient is already aware of her subclavian problems and does take her pressure on her left arm at home. She also is aware of her carotid disease. Thank you very much for letting us participate in the care of this patient. History of Present Illness Reason for Consultation: Carotid stenosis and bilateral subclavian artery stenoses Attending Physician: Camila Lovett MD History of Present Illness This is an 88-year-old female who presented to the ER with episode of dizziness. She does have a history of decreased ejection fraction, postural dizziness, presyncope, syncope, recurrent falls, and known carotid and subclavian artery disease. She does have an implanted loop recorder. She presented to the ER yesterday with dizziness and difficulty with balance. She did have a fall and struck her head approximately 10 days prior to her ER visit. She does claim these episodes only last a few moments and its mostly dizziness that occurs while standing. She denies any focal neurological deficits before during or after these episodes. Allergies Allergy/AdvReac Type Severity Reaction Status Date / Time latex Allergy Intermediate SEVERE Verified 01/04/24 13:55 ITCHING cephalexin Allergy Mild RASH Verified 01/04/24 13:55 Home Medications Medication Instructions Recorded Confirmed Type cholecalciferol (vitamin D3) 125 125 mcg PO DAILY 10/02/19 01/04/24 History mcg (5,000 unit) tablet albuterol sulfate 90 mcg/actuation 2 puff inhalation Q4H PRN 04/10/21 01/04/24 History aerosol inhaler Shortness Of Breath #1 g calcium carbonate (Calcium 600) 1,200 mg PO DAILY 06/16/21 01/04/24 History lactobacillus combination no.4 3 6,000 mmu cells PO DAILY 06/16/21 01/04/24 History billion cell capsule (Probiotic) magnesium 250 mg tablet 250 mg PO DAILY #30 tabs 10/09/21 01/04/24 Rx fluticasone propionate 50 1 - 2 spray intranasal DAILY #18.2 02/05/22 01/04/24 Rx mcg/actuation nasal mL spray,suspension nitroglycerin 0.4 mg sublingual 0.4 mg sublingual UD PRN chest 05/02/22 01/04/24 Rx tablet (Nitrostat) pain #1 btl aspirin 81 mg tablet,delayed 81 mg PO DAILY 07/06/22 01/04/24 History release vitamins A,C,O-dzrf-dxwybv 4,296 1 cap PO DAILY 12/14/22 01/04/24 History mcg-226 mg-90 mg capsule (PreserVision AREDS) cranberry fruit concentrate 250 mg 250 mg PO BID 02/15/23 01/04/24 History chewable tablet (Azo Cranberry) levothyroxine 75 mcg capsule 75 mcg PO DAILY #90 caps 04/13/23 01/04/24 Rx lisinopril 10 mg tablet 10 mg PO DAILY #90 tabs 04/26/23 01/04/24 Rx carboxymethylcellulose sodium 1 % 1 drp ophthalmic (eye) BID 08/09/23 01/04/24 History eye liquid gel drops (Refresh Liquigel) atorvastatin 20 mg tablet 20 mg PO 2XWK 11/30/23 01/04/24 History umeclidinium 62.5 mcg-vilanterol 1 inh inhalation DAILY 11/30/23 01/04/24 History 25 mcg/actuation powdr for inhalation (Anoro Ellipta) Saccharomyces boulardii 250 mg 250 mg PO BID #20 caps 12/13/23 01/04/24 Rx capsule (Florastor) triamterene 37.5 1 cap PO .QOD #45 caps 12/26/23 01/04/24 Rx mg-hydrochlorothiazide 25 mg capsule diclofenac sodium 1 % topical gel See Rx Instructions .Route 12/28/23 01/04/24 Rx .COMPLEX #300 grams carvedilol 3.125 mg tablet 3.125 mg PO BID #180 tabs 01/02/24 01/04/24 Rx Patient History Medical History (Updated 01/06/24 @ 11:38 by Miquel Live MD) Carotid stenosis, right CKD (chronic kidney disease), stage III Vertebrobasilar insufficiency Moderate mitral regurgitation HFrEF (heart failure with reduced ejection fraction) EF 30% - 2023 echo Chronic kidney disease, stage IV (severe) Hypothyroidism Impaired fasting glucose Falls frequently Anemia Syncope (08/2022) Chest pain at rest Subclavian artery stenosis, right Chronic cerebral ischemia Vertebral artery stenosis Acute chest wall pain LBBB (left bundle branch block) Acute severe vertigo Pasteurella infection with bacteremia, 2nd to cat scratch and RUE cellulitis - 06/16 COVID-19 09/2021 - required hospitalization Acute on chronic systolic heart failure Chronic kidney disease, stage IV (severe) Pseudogout of hand Septic arthritis of hand, right Gram-negative bacteremia Right arm cellulitis Situational anxiety ARF (acute renal failure) UTI (urinary tract infection) recurrent Balance problems Bradycardia Secondary hypothyroidism Nocturia Arthritis, multiple joint involvement COPD (chronic obstructive pulmonary disease) Osteoporosis Hypercholesterolemia HTN (hypertension) Surgical History History of rotator cuff surgery Jul 2011--Dr. Whitten History of carpal tunnel surgery History of myringotomy History of inguinal hernia repair History of bunionectomy History of breast biopsy Hx of adenoidectomy Hx of tonsillectomy H/O: hysterectomy S/P appendectomy S/P cholecystectomy Family History Mother , in her 80s of multiple CVAs Alzheimer disease Stroke Father , age 78 of COPD complications Emphysema, unspecified COPD (chronic obstructive pulmonary disease) Grandfather (Maternal) Colorectal cancer Uncle Prostate cancer Denies family history of Ovarian cancer Diabetes Coronary heart disease Heart disease Myocardial infarction Breast cancer Lung cancer Social History Smoking Status: Former smoker Tobacco Type: Cigarettes Age Started Using Tobacco: 23; Age Quit Using Tobacco: 61; Cigarettes Per Day: 1 ppd; Second Hand Exposure: No; Do You Dip or Chew Tobacco: No; Hx Alcohol Use: No Hx Substance Use: No Preferred Language: Zambian Communication Ability: Effective Visual Impairment: Limited Hearing Ability: Use of Hearing Aid Cutter Aluminum Sheet Required: No Beliefs That Will Affect Care: None marital status: Current Living Situation: Alone Current Living Situation Comment: independent elderly apartment current occupational 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[employer], 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 How many Children do You have: 2 Feels Safe at Home: Yes Childhood Exposure to Second-Hand Smoke: Yes Diet: regular caffeine: Yes Dental Care, Regularly: No Physical Activity Frequency: Does not Exercise Seatbelt Use: always Sunscreen Use: No Assistive Devices: Cane Review of Systems Review of Systems: All systems reviewed & are unremarkable except as noted in HPI & below Physical Exam Constitutional: WD/WN, vitals as above Respiratory: normal respiratory effort; no respiratory distress Cardiovascular: Rate/Rhythm: regular rate and regular rhythm Vessels: femoral pulses present and radial pulses present (+1 on the right and +2 on the left) Extremities: normal capillary refill (In both upper and lower extremities) Gastrointestinal (Abdomen): Inspection/Auscultation: abdomen normal to inspection Percussion/Palpation: abdomen soft Neurologic: CN's II-XI intact bilaterally and moves all extremities Psychiatric: Orientation: alert and oriented x 3 Results & Data Vital Signs (Past 12 Hours) Vital Signs Temp Pulse Resp BP Pulse Ox O2 Del Method 01/06/24 07:53 36.9 C 70 19 140/67 91 Room Air 01/06/24 02:49 36.5 C 61 18 159/55 H 94 Room Air
--- NOTE | 2024-01-06 13:04 | Hospitalist Progress Note ---
Date of Service January 06, 2024 Assessment & Plan (1) CVA (cerebral vascular accident): Plan: Patient sent in by her PCP on 01/03 ongoing dizziness and balance issues with recent falls Fall on 12/25: patient struck head and right shoulder, but did not come to the hospital at this time Head CT on arrival revealed 7mm hyperdense focus in the right internal capsule which could indicate acute to subacute infarct No prior hx of stroke No facial droop, slurred speech, or unilateral deficits appreciated on clinical exam Brain MRI showed multiple punctate CVAs in the right frontal, parietal, occipital, and zepeda radiata indicative of embolic source Due to renal insufficiency, no contrast was used and obtained head MRA which was negative for stenosis or occlusion, and B/L carotid dopplers did not show any hemodynamically significant stenosis However, previous CTA of the neck did show a right-sided 70% carotid artery stenosis- checked CT angiogram of the neck-showed 70% proximal R ICA stenosis and high-grade right subclavian stenosis and left moderate subclavian stenosis Consulted vascular surgery-reports that because there is also posterior circulation involvement with the stroke, this is likely a cardioembolic source of stroke versus embolic plaque from aortic arch and no intervention needed on carotids I do not want to do a CT angiogram of the chest to look at the aorta as her renal function is already compromised Loop recorder interrogations reviewed and she only had 10 minutes of atrial fibrillation back in the fall 2022 but none since then Echocardiogram here with bubble study shows improved EF 40-45%, global hypokinesis of LV, moderate LVH, mild MR, negative bubble study Neurology consultation placed-appreciate recommendations-does not feel that symptoms of dizziness and falls are related to the strokes and that the strokes are an incidental finding. Agrees with starting dual antiplatelet therapy x 3 weeks followed by transition to Plavix monotherapy. As bubble study is negative, no need for lower extremity Doppler. No indication for Eliquis at this point given very minimal atrial fibrillation on loop recorder 6 months ago-continue to monitor with loop recorder Continue stroke scale checks and neurochecks q4h Continue aspirin 81mg daily and Plavix 75mg daily x 3 weeks and then Plavix monotherapy Lipid panel is acceptable, however needs high intensity statin especially for significant vascular disease-given myalgias with low doses of atorvastatin- switch to Crestor 20 mg daily, can also add co-Q10 Hemoglobin A1c is normal Blood pressures are mildly elevated but will allow permissive hypertension- holding home Dyazide, lisinopril, and she already stopped her home carvedilol PT/OT consulted and recommending rehab (2) HTN (hypertension): Plan: Per review of last Cardio note, has been a difficult balance between managing her HTN in the setting of CVD and recurrent falls/syncope Patient reports she has not been taking her carvedilol, as she is worried this contributes to her falls as it made her very dizzy Continue to hold lisinopril and would not restart home Dyazide given frequent orthostasis Orthostatic vital signs are negative She is no longer taking carvedilol as it made her very dizzy Could consider low-dose Toprol-XL given history of HFrEF (3) HFrEF (heart failure with reduced ejection fraction): Plan: Echocardiogram on 11/30/2023 revealed LVEF at 30-35%; severe global hypokinesis of left ventricle; elevated RVSP; no evidence of ASD Repeat echocardiogram here with improved LV function of 40-45% Prior difficulty with Lasix; recently discharged on 12/01 on triamterene-HCTZ but will now discontinue this due to dizziness Can take as needed Dyazide for weight gain or lower extremity edema Low-sodium diet, daily weights Consider adding on low-dose Toprol-XL for HFrEF but avoid diuretics for now. Add home lisinopril back on Follows with cardiology (4) Elevated troponin: Plan: Troponin 42->31 on arrival Clinically patient denies chest pain and no wall motion abnormalities on echocardiogram ECG without ischemic changes (5) Falls frequently: Plan: 2 falls in the last month and numerous episodes of syncope and presyncope in the past. Cervical spine CT, right humerus x-ray, and chest x-ray without acute fractures Has loop recorder in place which has not shown any significant arrhythmias thus far Thoughts in the past were that she had orthostasis and perhaps vertebrobasilar insufficiency Attempts to avoid hypovolemia and hypotension and medications that can cause these Some of her events have been related to moving her bowels and urinating and she did have urinary retention here-ensure bowels are moving properly and urine is draining properly as these events may have been vasovagal Stop Dyazide and carvedilol Fall precautions Needs rehab (6) Hypothyroidism: Plan: TSH here is normal at 1.1 Continue home levothyroxine 75 mcg daily (7) Constipation: Plan: Chronic issue but improved on probiotics Continue home probiotics (8) Urinary retention: Plan: Retained urine and straight cathed for 400 mL on 01/04, now improved Could be related to history of chronic constipation She is not on any medications that would cause urinary retention Follow bladder scans (9) CKD (chronic kidney disease), stage III: Plan: Creatinine elevated but at baseline at 1.5-1.6 Stopping Dyazide, holding lisinopril for permissive hypertension but restarting lisinopril tomorrow Avoid nephrotoxins and renally dose medications monitor BMP Watch urine output Plan Disposition: Medically stable for discharge, plan for rehab at [facility] but no bed available today Full code VTE PPx: Lovenox SQ Discussed care with daughter on the phone on the evening of 01/04 Admission and Anticipated Discharge Date Admission Date: January 04, 2024 Subjective Patient reports feeling a little bit better today but still having difficulty with balance at times. I discussed her care at length with neurology and reviewed her loop recorder interrogation with on-call research assistant member to assist with interpretation. Telemetry here with sinus rhythm, IVCD, PACs, rates in the 50s to 60s Physical Exam Constitutional: WD/WN, vitals as above Respiratory: normal respiratory effort, lungs clear to auscultation Cardiovascular: RRR, no murmur, no edema Gastrointestinal (Abdomen): normal bowel sounds, soft, nontender, no hepatosplenomegaly Neurologic: PERRL, EOMI, accommodation nl, no face palsy, no dysarthria no focal motor deficits Motor/Sensory: no tremor Psychiatric: Orientation: alert and oriented x 3 Results & Data Results & Data Vital Signs (Past 12 Hours) Vital Signs Temp Pulse Resp BP Pulse Ox O2 Del Method 01/06/24 11:33 36.7 C 64 19 144/63 H 95 Room Air 01/06/24 07:53 36.9 C 70 19 140/67 91 Room Air 01/06/24 02:49 36.5 C 61 18 159/55 H 94 Room Air Laboratory Results CBC, BMP reviewed Diagnostic Findings CTA neck reviewed PG Care Time/CCT Total # of Minutes Spent Total Time Spent with Patient: Total time spent is greater than 50% in coordination of care (as documented) at patient's floor/unit and/or counseling patient: Coding Level of Care Code 61169 SUB INP/OBS CARE 50MIN Diagnoses CVA (cerebral vascular accident) I63.9 HTN (hypertension) I10 HFrEF (heart failure with reduced ejection fraction) I50.20 Elevated troponin R77.8 Falls frequently R29.6 Hypothyroidism E03.9 Constipation K59.00 Urinary retention R33.9 CKD (chronic kidney disease), stage III N18.30
--- NOTE | 2024-01-06 21:39 | Electrocardiogram Report ---
Test Reason : Blood Pressure : / mmHG Vent. Rate : 070 BPM Atrial Rate : 070 BPM P-R Int : 178 ms QRS Dur : 134 ms QT Int : 408 ms P-R-T Axes : 066 -19 137 degrees QTc Int : 440 ms Sinus rhythm with Premature atrial complexes Left bundle branch block Abnormal ECG When compared with ECG of 13-DEC-2023 11:18, Premature atrial complexes are now Present Confirmed by Karthikeyan Long ([id number]) on 01/06/2024 9:38:45 PM Referred By: Kory Wan Confirmed By:Karthikeyan Long
[2024-01-07 08:26] LABS: Basophils # (auto) 0.06 K/uL (0.00-0.20); Eosinophils # (auto) 0.37 K/uL (0.00-0.50); Eosinophils % (auto) 6.1 %; Hematocrit (blood only) 35.1 % (37.0-47.0); Hemoglobin 11.2 g/dl (12.0-16.0); Immature Granulocytes # (auto) 0.03 K/uL (0.01-0.20); Immature Granulocytes % (auto) 0.5 %; Lymphocytes # (auto) 1.32 K/uL (1.20-3.40); Lymphocytes % (auto) 21.7 %; Mean Corpuscular Hgb Conc 31.9 g/dL (32.0-36.0); Mean Corpuscular Volume 97.2 fL (80.0-100.0); Mean Platelet Volume 10.3 fL (9.4-12.4); Monocytes # (auto) 0.53 K/uL (0.11-0.59); Monocytes % (auto) 8.7 %; Neutrophils # (auto) 3.76 K/uL (1.40-6.50); Platelet Count 184 K/uL (130-400); RDW Coefficient of Variation 12.8 % (11.5-14.5); RDW Standard Deviation 45.8 fL (36.4-46.3); Red Blood Count 3.61 M/uL (4.20-5.40); White Blood Count 6.07 K/ul (4.8-10.8)
[2024-01-07 08:46] LABS: BUN Creatinine Ratio 24.3 (10-20); Calcium 9.1 mg/dl (8.6-10.3); Creatinine Clr Calc Pharmacy 20.1 ml/min; Est GFR (African American) 29.8 ml/min; Est GFR (Non-African American) 25.7 ml/min; Potassium 4.1 mmol/L (3.5-5.1)
[2024-01-07] MEDS: ROSUVASTATIN CALCIUM 20 MG TAB PO SCH (09:09)
[2024-01-07] MEDS: lisinopril 10 MG TAB PO SCH (09:09)
[2024-01-07] MEDS: POLYETHYLENE (MIRALAX) 17 GM PACK PO SCH (10:44)
[2024-01-07] MEDS: DOCUSATE SODIUM/SENNA 50/8.6MG TAB PO SCH (10:44)
--- NOTE | 2024-01-07 13:46 | Hospitalist Progress Note ---
Date of Service January 07, 2024 Assessment & Plan (1) CVA (cerebral vascular accident): Plan: Patient sent in by her PCP on 01/03 ongoing dizziness and balance issues with recent falls. Had a fall on 12/25- patient struck head and right shoulder-did not come to the hospital at this time Head CT on arrival revealed 7mm hyperdense focus in the right internal capsule which could indicate acute to subacute infarct No facial droop, slurred speech, or unilateral deficits appreciated on clinical exam Brain MRI showed multiple punctate CVAs in the right frontal, parietal, occipital, and zepeda radiata indicative of embolic source Due to renal insufficiency, no contrast was used and obtained head MRA which was negative for stenosis or occlusion B/L carotid dopplers did not show any hemodynamically significant stenosis, however, previous CTA of the neck did show a right-sided 70% carotid artery stenosis in 2021 CTA neck-showed 70% proximal R ICA stenosis and high-grade right subclavian stenosis and left moderate subclavian stenosis, unchanged from previous Consulted vascular surgery-reports that because there is also posterior circulation involvement with the stroke, this is likely a cardioembolic source of stroke versus embolic plaque from aortic arch and no intervention needed on carotids I do not want to do a CT angiogram of the chest to look at the aorta as her renal function is already compromised Loop recorder interrogations reviewed and she only had 10 minutes of atrial fibrillation back in the fall 2022 but none since then Echocardiogram here with bubble study shows improved EF 40-45%, global hypokinesis of LV, moderate LVH, mild MR, negative bubble study Neurology consultation placed-appreciate recommendations-does not feel that symptoms of dizziness and falls are related to the strokes and that the strokes are an incidental finding. Agrees with starting dual antiplatelet therapy x 3 weeks followed by transition to Plavix monotherapy. As bubble study is negative, no need for lower extremity Doppler. No indication for Eliquis at this point given very minimal atrial fibrillation on loop recorder 6 months ago-continue to monitor with loop recorder Continue stroke scale checks and neurochecks q4h Continue aspirin 81mg daily and Plavix 75mg daily x 3 weeks and then Plavix monotherapy starting 01/25/24 Lipid panel is acceptable, however needs high intensity statin especially for significant vascular disease-given myalgias with low doses of atorvastatin- switched to Crestor 20 mg daily, can also add co-Q10 if needed Hemoglobin A1c is normal Blood pressures are mildly elevated but will allow permissive hypertension- holding home Dyazide, resumed lisinopril, and she already stopped her home carvedilol due to lightheadedness PT/OT consulted and recommending rehab -awaiting placement (2) HTN (hypertension): Plan: Per review of last Cardio note, has been a difficult balance between managing her HTN in the setting of CVD and recurrent falls/syncope Patient stopped carvedilol due to lightheadedness Resumed lisinopril and would not restart home Dyazide given frequent episodes of lighheadedness Orthostatic vital signs here are negative Could consider low-dose Toprol-XL given history of HFrEF but avoid for now (3) HFrEF (heart failure with reduced ejection fraction): Plan: Echocardiogram on 11/30/2023 revealed LVEF at 30-35%; severe global hypokinesis of left ventricle; elevated RVSP; no evidence of ASD Repeat echocardiogram here with improved LV function of 40-45% Prior difficulty with Lasix; recently discharged on 12/01 on triamterene-HCTZ but will now discontinue this due to dizziness and use prn weight gain or lower extremity edema Low-sodium diet, daily weights Consider adding on low-dose Toprol-XL for HFrEF but avoid diuretics for now. Continue home lisinopril Follows with cardiology (4) Elevated troponin: Plan: Troponin 42->31 Clinically patient denies chest pain and no wall motion abnormalities on echocardiogram ECG without ischemic changes (5) Falls frequently: Plan: 2 falls in the last month and numerous episodes of syncope and presyncope in the past. Frequent feeling of lightheadedness Cervical spine CT, right humerus x-ray, and chest x-ray without acute fractures Has loop recorder in place which has not shown any significant arrhythmias thus far Thoughts in the past were that she had orthostasis and perhaps vertebrobasilar insufficiency, bu tNeuro and Vascular Surgery do not think her symptoms correlate with this Attempts to avoid hypovolemia and hypotension and medications that can cause these Some of her events have been related to moving her bowels and urinating and she did have urinary retention here-ensure bowels are moving properly and urine is draining properly as these events may have been vasovagal Stop Dyazide and carvedilol Fall precautions Needs rehab Continue [facility] hernandez Family looking for [facility] for longterm placement after rehab (6) Hypothyroidism: Plan: TSH here is normal at 1.1 Continue home levothyroxine 75 mcg daily (7) Constipation: Plan: Chronic issue but improved on probiotics Continue home probiotics add Miralax, senna/docusate (8) Urinary retention: Plan: Retained urine and straight cathed for 400 mL on 01/04, now improved Having urinary urgency on 01/06--> check UA for infection Could be related to history of chronic constipation She is not on any medications that would cause urinary retention Follow bladder scans (9) CKD (chronic kidney disease), stage III: Plan: Creatinine elevated but at baseline at 1.5-1.7 which is around her baseline Stopping Dyazide,resumed home lisinopril Avoid nephrotoxins and renally dose medications monitor BMP Watch urine output Plan Disposition: Medically stable for discharge, plan for rehab at [facility] but no bed available again today-they will have a bed on 01/07 Full code VTE PPx: Lovenox SQ Discussed care with daughter on the phone again on 01/06 at length Admission and Anticipated Discharge Date Admission Date: January 04, 2024 Anticipated date of discharge: 01/08/24 Subjective Pt reports constant urge to urinate but not much coming out. Bladder scan only about 75mL. No abd pain. Continues to feel "loopy" with walking around. No headache or weakness, no CP or SOB Tele with NSR, PACs, rates 60-70s Physical Exam Constitutional: WD/WN, vitals as above Respiratory: normal respiratory effort, lungs clear to auscultation Cardiovascular: RRR, no murmur, no edema Vessels: + carotid bruit (bilat) Gastrointestinal (Abdomen): normal bowel sounds, soft, nontender, no hepatosplenomegaly Neurologic: no focal motor deficits Motor/Sensory: no tremor Psychiatric: Orientation: alert and oriented x 3 Results & Data Results & Data Vital Signs (Past 12 Hours) Vital Signs Temp Pulse Pulse Resp BP Pulse Ox O2 Del Method 01/07/24 11:03 36.4 C L 66 19 147/68 H 96 Room Air 01/07/24 07:46 36.9 C 93 H 18 156/66 H 97 Room Air 01/07/24 07:42 Room Air 01/07/24 07:17 56 L 01/07/24 03:39 36.4 C L 60 18 136/51 L 90 Room Air Laboratory Results CBC, BMP reviewed PG Care Time/CCT Total # of Minutes Spent Total Time Spent with Patient: Total time spent is greater than 50% in coordination of care (as documented) at patient's floor/unit and/or counseling patient: Coding Level of Care Code 21384 SUB INP/OBS CARE 2/35MIN Diagnoses CVA (cerebral vascular accident) I63.9 HTN (hypertension) I10 HFrEF (heart failure with reduced ejection fraction) I50.20 Elevated troponin R77.8 Falls frequently R29.6 Hypothyroidism E03.9 Constipation K59.00 Urinary retention R33.9 CKD (chronic kidney disease), stage III N18.30
[2024-01-07 18:08] LABS: Appearance Urine Cloudy (Clear); Bacteria Urine Automated 4+ (None Seen); Bilirubin Urine Negative (Negative); Blood Urine Negative (Negative); Cast Urine Automated 0-2 /lpf (0-2); Color Urine Yellow; Glucose Urine UA Negative (Negative); Ketones Urine Negative (Negative); Leukocyte Esterase Urine 2+ (Negative); Nitrite Urine Negative (Negative); Protein Urine Negative (Negative); RBC Urine Automated 0-2 /hpf (0-2); Specific Gravity Urine 1.016 (1.000-1.030); Urobilinogen Urine Negative (Negative); WBC Urine Automated >50 /hpf (0-5); pH Urine 6.5 (4.5-7.5)
[2024-01-08 06:37] LABS: BUN Creatinine Ratio 28.2 (10-20); Creatinine Clr Calc Pharmacy 23.6 ml/min; Est GFR (African American) 35.7 ml/min; Est GFR (Non-African American) 30.8 ml/min; Potassium 4.2 mmol/L (3.5-5.1)
[2024-01-08] MEDS: CEFDINIR 300 MG CAP PO SCH (11:08)
--- NOTE | 2024-01-08 11:21 | Discharge Summary ---
Discharge Summary Date of Service January 08, 2024 Notes For Next Care Provider Continue to monitor for occult Afib/flutter with loop recorder Follow up urine culture pending at time of discharge Add CoQ-10 if myalgias develop with Crestor Medication Changes From Visit Added Plavix 75mg po daily Continue aspirin through 01/25/24 and then STOP Added Crestor 20mg po qAM and stopped atorvastatin Stopped Dyazide but can be taken as needed Added cefdinir 300mg po daily x 6 more days Added Miralax 17 grams daily and senna/docusate 1 tab po qAM Admission HPI Per Admitting Provider Gayle is an 88yo female with PMH of HFrEF, hypothyroidism, frequent falls, syncope, HTN, osteoporosis, arthritis, COPD, vertebral basilar insufficiency, and urinary incontinence. She presented due to balance issues the morning of 01/03. She fell and struck her head on 12/25, but did not come into the hospital at that time. Sent in by her PCP for a head CT. Patient currently lives alone. She endorses that she has been having ongoing balance issues for the past several years. However she is fallen twice in the past month. Her fall on 12/25 involved head strike as well as right shoulder when she was walking into the kitchen; she was using her cane at the time, but reports that she lost her balance and went down. No LOC. No tripping. She denies dizziness or lighthea dedness prior to the fall, but reports that she "just goes down". She also ports she has been feeling "loopy". She noticed that she is going to fall ahead of time, and sometimes sits on the edge of bed, because if she stands up she believes she will follow-up. To her knowledge, no prior history of CVA, MT, PE, or diabetes. She did have history of DVT years ago, but had the veins stripped in her leg. Patient took all of her morning medications; she is unsure of changes to medications. Of note, the patient has not been taking her carvedilol over the past 2 weeks, as she believes it is contributing to her balance issues. She only took 5 total pills of carvedilol. Patient quit smoking in 1995. No recent alcohol use. ED Course: NSS 250mL IV ROS: Patient endorses balance issues, lightheadedness, nausea and vomiting with spells, diarrhea, Patient denies fever, chills, nightsweats, ROGEL, changes in vision, facial droop, slurred speech, unilateral deficits, chest pain, chest palpitations, cough, pleuritic CP, SOB, abdominal pain, blood in the urine/stool, burning with urination, dysuria, and leg weakness. Principal Dx & Hospital Course #1 = Principal Diagnosis (1) CVA (cerebral vascular accident): Patient sent in by her PCP on 01/03 ongoing dizziness and balance issues with recent falls. Had a fall on 12/25- patient struck head and right shoulder-did not come to the hospital at this time Head CT on arrival revealed 7mm hyperdense focus in the right internal capsule which could indicate acute to subacute infarct No facial droop, slurred speech, or unilateral deficits appreciated on clinical exam Brain MRI showed multiple punctate CVAs in the right frontal, parietal, occipital, and zepeda radiata indicative of embolic source Due to renal insufficiency, no contrast was used and obtained head MRA which was negative for stenosis or occlusion B/L carotid dopplers did not show any hemodynamically significant stenosis, however, previous CTA of the neck did show a right-sided 70% carotid artery stenosis in 2021 CTA neck-showed 70% proximal R ICA stenosis and high-grade right subclavian stenosis and left moderate subclavian stenosis, unchanged from previous Consulted vascular surgery-reports that because there is also posterior circulation involvement with the stroke, this is likely a cardioembolic source of stroke versus embolic plaque from aortic arch and no intervention needed on carotids I do not want to do a CT angiogram of the chest to look at the aorta as her renal function is already compromised Loop recorder interrogations reviewed and she only had 10 minutes of atrial fibrillation back in the fall 2022 but none since then Echocardiogram here with bubble study shows improved EF 40-45%, global hypokinesis of LV, moderate LVH, mild MR, negative bubble study Neurology consultation placed-appreciate recommendations-does not feel that symptoms of dizziness and falls are related to the strokes and that the strokes are an incidental finding. Agrees with starting dual antiplatelet therapy x 3 weeks followed by transition to Plavix monotherapy. As bubble study is negative, no need for lower extremity Doppler. No indication for Eliquis at this point given very minimal atrial fibrillation on loop recorder 6 months ago and has had multiple falls-high fall risk-continue to monitor with loop recorder Continue aspirin 81mg daily and Plavix 75mg daily x 3 weeks and then Plavix monotherapy starting 01/26/24 Lipid panel is acceptable, however needs high intensity statin especially for significant vascular disease-given myalgias with low doses of atorvastatin- switched to Crestor 20 mg daily, can also add co-Q10 if needed Hemoglobin A1c is normal Blood pressures are mildly elevated but will allow permissive hypertension- stopped home Dyazide, resumed lisinopril, and she already stopped her home carvedilol due to lightheadedness PT/OT consulted and recommending rehab (2) HTN (hypertension): Per review of last Cardio note, has been a difficult balance between managing her HTN in the setting of CVD and recurrent falls/syncope Patient stopped carvedilol due to lightheadedness Resumed lisinopril and would not restart home Dyazide given frequent episodes of lighheadedness Orthostatic vital signs here are negative Could consider low-dose Toprol-XL given history of HFrEF but avoid for now (3) HFrEF (heart failure with reduced ejection fraction): Echocardiogram on 11/30/2023 revealed LVEF at 30-35%; severe global hypokinesis of left ventricle; elevated RVSP; no evidence of ASD Repeat echocardiogram here with improved LV function of 40-45% Prior difficulty with Lasix; recently discharged on 12/01 on triamterene-HCTZ but will now discontinue this due to dizziness and use prn weight gain or lower extremity edema Low-sodium diet, daily weights Consider adding on low-dose Toprol-XL for HFrEF but avoid diuretics for now. Continue home lisinopril Follows with cardiology (4) Elevated troponin: Troponin 42->31 Clinically patient denies chest pain and no wall motion abnormalities on echocardiogram ECG without ischemic changes (5) Falls frequently: 2 falls in the last month and numerous episodes of syncope and presyncope in the past. Frequent feeling of lightheadedness Cervical spine CT, right humerus x-ray, and chest x-ray without acute fractures Has loop recorder in place which has not shown any significant arrhythmias thus far Thoughts in the past were that she had orthostasis and perhaps vertebrobasilar insufficiency, bu tNeuro and Vascular Surgery do not think her symptoms correlate with this Attempts to avoid hypovolemia and hypotension and medications that can cause these Some of her events have been related to moving her bowels and urinating and she did have urinary retention here-ensure bowels are moving properly and urine is draining properly as these events may have been vasovagal Stop Dyazide and carvedilol Fall precautions Needs rehab Continue DEBORAH hernandez Family looking for [facility] for terminal superintendent placement after rehab (6) Hypothyroidism: TSH here is normal at 1.1 Continue home levothyroxine 75 mcg daily (7) Constipation: Chronic issue but improved on probiotics Continue home probiotics added Miralax, senna/docusate (8) Urinary retention: Retained urine and straight cathed for 400 mL on 01/04, now improved Having urinary urgency on 01/06--> check UA for infection--> positive Could also be related to history of chronic constipation She is not on any medications that would cause urinary retention Start cefdinir 300mg po daily (renally dosed) x 7 days for UTI f/u urine cx after discharge (9) CKD (chronic kidney disease), stage III: Creatinine elevated but at baseline at 1.5-1.7 which is around her baseline Stopped Dyazide,resumed home lisinopril Avoid nephrotoxins and renally dose medications monitor BMP as outpt Watch urine output Plan Disposition: Medically stable for discharge to rehab at [facility] Full code VTE PPx: Lovenox SQ, Heriberto Discussed care with daughter on the phone on 01/06 at length Discharge Exam Constitutional WD/WN, vitals as above Respiratory normal respiratory effort, lungs clear to auscultation Cardiovascular RRR, no murmur, no edema Vessels: + carotid bruit (bilat) Gastrointestinal (Abdomen) normal bowel sounds, soft, nontender, no hepatosplenomegaly Neurologic PERRL, EOMI, accommodation nl, no face palsy, no dysarthria no focal motor deficits Motor/Sensory: no tremor Psychiatric Orientation: alert and oriented x 3 Updated Medication List Medication Instructions Recorded Confirmed Type cholecalciferol (vitamin D3) 125 125 mcg PO DAILY 10/02/19 01/04/24 History mcg (5,000 unit) tablet albuterol sulfate 90 mcg/actuation 2 puff inhalation Q4H PRN 04/10/21 01/04/24 History aerosol inhaler Shortness Of Breath #1 g calcium carbonate (Calcium 600) 1,200 mg PO DAILY 06/16/21 01/04/24 History lactobacillus combination no.4 3 6,000 mmu cells PO DAILY 06/16/21 01/04/24 History billion cell capsule (Probiotic) magnesium 250 mg tablet 250 mg PO DAILY #30 tabs 10/09/21 01/04/24 Rx fluticasone propionate 50 1 - 2 spray intranasal DAILY #18.2 02/05/22 01/04/24 Rx mcg/actuation nasal mL spray,suspension nitroglycerin 0.4 mg sublingual 0.4 mg sublingual UD PRN chest 05/02/22 01/04/24 Rx tablet (Nitrostat) pain #1 btl aspirin 81 mg tablet,delayed 81 mg PO DAILY 07/06/22 01/04/24 History release vitamins A,C,N-peta-eawsau 4,296 1 cap PO DAILY 12/14/22 01/04/24 History mcg-226 mg-90 mg capsule (PreserVision AREDS) cranberry fruit concentrate 250 mg 250 mg PO BID 02/15/23 01/04/24 History chewable tablet (Azo Cranberry) levothyroxine 75 mcg capsule 75 mcg PO DAILY #90 caps 04/13/23 01/04/24 Rx lisinopril 10 mg tablet 10 mg PO DAILY #90 tabs 04/26/23 01/04/24 Rx carboxymethylcellulose sodium 1 % 1 drp ophthalmic (eye) BID 08/09/23 01/04/24 History eye liquid gel drops (Refresh Liquigel) atorvastatin 20 mg tablet 20 mg PO 2XWK 11/30/23 01/04/24 History umeclidinium 62.5 mcg-vilanterol 1 inh inhalation DAILY 11/30/23 01/04/24 History 25 mcg/actuation powdr for inhalation (Anoro Ellipta) Saccharomyces boulardii 250 mg 250 mg PO BID #20 caps 12/13/23 01/04/24 Rx capsule (Florastor) triamterene 37.5 1 cap PO .QOD #45 caps 12/26/23 01/04/24 Rx mg-hydrochlorothiazide 25 mg capsule diclofenac sodium 1 % topical gel See Rx Instructions .Route 12/28/23 01/04/24 Rx .COMPLEX #300 grams carvedilol 3.125 mg tablet 3.125 mg PO BID #180 tabs 04/08/24 04/10/24 Rx cefdinir 300 mg capsule 300 mg PO DAILY #6 caps 01/08/24 Rx clopidogrel 75 mg tablet 75 mg PO QAM #30 tabs 01/08/24 Rx polyethylene glycol 3350 17 gram 17 g PO DAILY #30 ea 01/08/24 Rx oral powder packet (Miralax) rosuvastatin 20 mg tablet (Crestor) 20 mg PO QAM #30 tabs 01/08/24 Rx sennosides 8.6 mg-docusate sodium 1 tab PO QAM #30 tabs 01/08/24 Rx 50 mg tablet (Senokot-S) Hospital Stay Data Consultations 01/04/24 19:34 ED Decision to Admit Stat 01/05/24 09:06 Consult Neurology Routine 01/06/24 10:17 Consult Vascular Surgery Routine Diagnostic Imagining Performed 01/04/24 15:59 CT cervical spine wo con Stat CT head/brain wo con Stat 01/04/24 20:37 MR brain wo con Routine 01/04/24 20:40 MR angio head wo con Urgent 01/05/24 US carotid doppler BI Routine 01/05/24 20:30 CTA neck with con [CT angio neck with con] Routine Pending Results Patient Have Any Pending Studies at Discharge: Yes (Urine culture) Discharge Instructions Given to Patient (Per Discharging Provider) You were admitted with lightheadedness and a recent fall and found to have multi ple small strokes. You were started on a new blood thinner called Palvix. You can continue the aspirin for a few more weeks and then stop the aspirin completely. Your cholesterol medication was changed to Crestor to help prevent future strokes. Please continue to follow up with Cardiology with regards to your loop recorder and heart failure, keeping on the lookout for atrial fibrillation or flutter as a cause of your strokes. The strokes also could have come from plaque buildup in the main artery coming our of your heart (the aorta). Due to your ongoing lightheadedness, your Dyazide was made as needed rather than every other day. Your Muck Farmer may decide to add a different blood pressure medicine back in the future if your blood pressures remain elevated. Your heart failure is improved from previous on your Echocardiogram. You also were found to have a UTI and are being treated with an antibiotic called cefdinir x 1 week. Risk Factors for Stroke: You can reduce your chances of stroke by working with your medical provider to adopt a healthy lifestyle. Some specific ways to lower your chance of stroke are: * If you are a smoker, now is the time to stop smoking cigarettes * If you are diabetic, improve the control of your blood sugars * Avoid excessive amounts of alcohol * Control high blood pressure * Lose weight if you are overweight * Be sure to lead an active lifestyle * Eat a healthy diet low in salt, cholesterol and fat You should know about other risk factors for stroke that you are unable to control. These include: * Age 55 years or older * Male gender * Certain racial groups: , or / * Family History of Stroke, Mini stroke or Heart Attack * Sickle Cell Disease Follow Up: It is important for you to keep your follow up appointments with your medical provider. Who to Call and When: Medical Emergencies: Call 911 immediately if you experience any of the following warning signs and symptoms of Stroke: * Sudden numbness or weakness of the face, arm or leg, especially on one side of the body * Sudden confusion, trouble speaking or understanding * Sudden trouble seeing in one or both eyes * Sudden trouble walking, dizziness, loss of balance or coordination * Sudden severe headache with no cause Do not delay calling 911 if you experience any warning signs or symptoms of a stroke. Delay in seeking medical attention may affect what treatments can be given to you. . Total Time Total Time Spent Total Time Spent (In Minutes): 35 min Coding Level of Care Code 48442 INP/OBS DISCH >30 MIN Diagnoses CVA (cerebral vascular accident) I63.9 HTN (hypertension) I10 HFrEF (heart failure with reduced ejection fraction) I50.20 Elevated troponin R77.8 Falls frequently R29.6 Hypothyroidism E03.9 Constipation K59.00 Urinary retention R33.9 CKD (chronic kidney disease), stage III N18.30
== END 2024-01-08 13:48 | DRG 65 ==
LOC: ED 15:25 → 2E 21:24 → SUATTDRO 21:24 → 2E 23:05

== ENCOUNTER 2024-01-24 09:22 | Inpatient (IN) ==
--- NOTE | 2024-01-24 09:51 | Emergency Department Note ---
Impression & Plan Acute respiratory failure with hypoxia, Acute HFrEF (heart failure with reduced ejection fraction), Weakness, Gait instability ED Provider Note NAME: DMITRY RODRIGUEZ AGE: 88 SEX: F : 1935 ARRIVES VIA: Ambulance INFORMANT: Patient, ED PROVIDER(S): Candelario Krishnamurthy MD CHIEF COMPLAINT: Gait and balance, weakness MEDICAL DECISION MAKING: Patient presented due to concern for weakness and ambulatory dysfunction patient's blood work shows a normal white count hemoglobin of 11 which is chronic and stable patient CT of the head shows no acute changes the patient's chest x-ray shows cardiomegaly and emphysema but no acute changes. The patient's blood work does show a creatinine 1.21. The patient's troponin was 54 so repeat was obtained. Patient's BNP was 890. Upon reassessment the patient did sound as though she had associated wheezing increased work of breathing and hypoxia and after speaking with nursing patient had received 1250 of IV fluids instead of just 250 cc IV fluids. Patient was ordered IV Lasix 60 mg and was placed on BiPAP. The patient was noted to be hypoxic and was placed on supplemental nasal cannula prior to the BiPAP being initiated. I did speak with nursing in order to submit an incident report given the inadvertent administration of additional IV fluids without an order. I did speak to the on- call hospitalist service Norberto Cosby PA-C and Dr. Lowe the patient was admitted to the medicine service this was also in discussion with ED case management as the daughter is trying to get the patient to long-term which necessitated inpatient treatment to help facilitate this. Repeat chest x-ray was performed which shows developing pulmonary vascular congestion consistent with volume overload. Critical Care: I have personally spent 35 minutes of critical care time in direct management of this patient. This includes bedside care, interpretation of diagnostic studies, and testing, discussion with consultants, patient, and family members, and other require inpatient management activities. This 35 minutes is in excess of all separately billable procedures. Discussion w/ other healthcare providers: Norberto Cosby PA-C and Dr. Drake ED case management Prior /Outside records reviewed: I reviewed a discharge summary from Dr. Lovett from January 07. Patient with a known history of heart failure with reduced ejection fraction hypothyroidism frequent falls syncope hypertension osteoporosis COPD vertebrobasilar insufficiency and urinary continence who presented due to concern for balance issues. Patient was diagnosed with CVA. CT of the head showed hyperdense focus of the right internal capsule which could be an acute to subacute infarct. Brain MRI showed multiple punctate CVAs right frontal parietal occipital and zepeda radiata indicative of embolic source. MRA was negative for stenosis or occlusion bilateral Dopplers did not show any hemodynamic significant stenosis prior CTA has shown right-sided 70% stenosis of the carotid back in 2021 patient did have a CTA of the neck reported showed 70% proximal right ICA stenosis and high-grade right subclavian stenosis and left moderate subclavian stenosis unchanged loop recorder interrogations were performed showed 10 minutes of A-fib back in the fall 2022 but no further reports since then. Echo was completed with bubble study improved EF of 40 to 45% with global hypokinesis of the LV with moderate LVH mild MR negative bubble study. Patient was to be on dual antiplatelet therapy with Plavix monotherapy beginning January 25. Patient did have her Dyazide and carvedilol stopped. Differential diagnosis: Infection, dehydration, metabolic abnormality, hypo/hyperglycemia, electrolyte imbalance, anemia, UTI, pneumonia, thyroid dysfunction among others were considered. Diagnostics, as interpreted by me: ECG: Sinus, rate of 72, wide QRS, left bundle branch block pattern, left axis deviation no ST elevations. Cardiac monitoring: An order was placed for continuous cardiac monitoring. The monitor shows a rate of 75 with sinus rhythm. Patient was placed on pulse oximetry Medical decision rules: None Imaging studies: I informally interpreted the patient's chest x-ray shows cardiomegaly with formal report to follow. I informally interpreted the patient's repeat chest x-ray which does show developing pulmonary vascular congestion with formal report to follow HPI: Patient presents due to concern for worsening unsteady gait associated weakness. The patient states that this is gotten progressively worse. Patient was discharged home does live in an independent care facility near [facility] after an inpatient stay at [facility] post inpatient stay here at [facility]. Patient denies any chest pains or shortness of breath. The patient does feel as though she has got gait imbalance and lightheadedness but denies any spins. Nursing reports states that the patient may have fallen several days ago although patient cannot give a clear timeframe. Patient denies any abdominal pain or nausea vomiting. Patient feels as though she has been getting enough to eat and drink and states that she is compliant with her medications. Patient denies any numbness tingling or focal weakness. Patient has had productive cough but states that she has been having some drainage from the back of the throat that she is noticed. PAST MEDICAL HISTORY: See Below PAST SURGICAL HISTORY: See Below SOCIAL HISTORY: See Below HOME MEDICATIONS: See Below ALLERGIES: See Below VITALS: See Below PHYSICAL EXAMINATION: GENERAL: NAD, non-toxic. EYE EXAM: Normal conjunctiva. PERRL, no anisocoria and EOM's grossly intact w/o pain. OROPHARYNX: Dry mucus membranes, grossly normal dentition. NECK: Trachea midline, no stridor. Supple, no nuchal rigidity, no adenopathy, non-tender. No signs of meningismus. FROM of the neck with good chin to chest and neck extension. LUNGS: Clear to auscultation. Normal chest wall mechanics. HEART: NSR, no MRG. ABDOMEN: Abdomen soft, non-tender, no masses, no rebound or guarding. BACK: No CVA TTP. SKIN: No rashes and no bruising. UPPER EXTREMITIES: Upper extremities are grossly normal. LOWER EXTREMITIES: Grossly normal, no edema. NEURO EXAM: A&O x3, cranial nerves II-XII grossly intact, normal speech, moves all 4 extremities. Past Med/Surg History Medical History COPD (chronic obstructive pulmonary disease) Carotid stenosis, right CKD (chronic kidney disease), stage III Vertebrobasilar insufficiency Moderate mitral regurgitation HFrEF (heart failure with reduced ejection fraction) EF 30% - 2023 echo Chronic kidney disease, stage IV (severe) Hypothyroidism Impaired fasting glucose Falls frequently Anemia Syncope (08/2022) Chest pain at rest Subclavian artery stenosis, right Chronic cerebral ischemia Vertebral artery stenosis Acute chest wall pain LBBB (left bundle branch block) Acute severe vertigo Pasteurella infection with bacteremia, 2nd to cat scratch and RUE cellulitis - 06/16 COVID-19 09/2021 - required hospitalization Acute on chronic systolic heart failure Chronic kidney disease, stage IV (severe) Pseudogout of hand Septic arthritis of hand, right Gram-negative bacteremia Right arm cellulitis Situational anxiety ARF (acute renal failure) UTI (urinary tract infection) recurrent Balance problems Bradycardia Secondary hypothyroidism Nocturia Arthritis, multiple joint involvement Osteoporosis Hypercholesterolemia HTN (hypertension) Surgical History History of rotator cuff surgery Jul 2011--Dr. Whitten History of carpal tunnel surgery History of myringotomy History of inguinal hernia repair History of bunionectomy History of breast biopsy Hx of adenoidectomy Hx of tonsillectomy H/O: hysterectomy S/P appendectomy S/P cholecystectomy Family History Mother , in her 80s of multiple CVAs Alzheimer disease Stroke Father , age 78 of COPD complications Emphysema, unspecified COPD (chronic obstructive pulmonary disease) Grandfather (Maternal) Colorectal cancer Uncle Prostate cancer Denies family history of Ovarian cancer Diabetes Coronary heart disease Heart disease Myocardial infarction Breast cancer Lung cancer Social History Smoking Status: Former smoker Tobacco Type: Cigarettes Age Started Using Tobacco: 23; Age Quit Using Tobacco: 61; Cigarettes Per Day: 1 ppd; Second Hand Exposure: No; Do You Dip or Chew Tobacco: No; Hx Alcohol Use: No Hx Substance Use: No Preferred Language: Yi Communication Ability: Effective Visual Impairment: Limited Hearing Ability: Use of Hearing Aid Sample Taker Operator Required: No Beliefs That Will Affect Care: None marital status: Current Living Situation: Alone Current Living Situation Comment: independent elderly apartment current occupational 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[employer], 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 How many Children do You have: 2 Feels Safe at Home: Yes Childhood Exposure to Second-Hand Smoke: Yes Diet: regular caffeine: Yes Dental Care, Regularly: No Physical Activity Frequency: Does not Exercise Seatbelt Use: always Sunscreen Use: No Assistive Devices: Cane Allergies Allergies Allergy/AdvReac Type Severity Reaction Status Date / Time latex Allergy Intermediate SEVERE Verified 01/04/24 13:55 ITCHING cephalexin Allergy Mild RASH Verified 01/04/24 13:55 Home Meds Home Medications Medication Instructions Recorded Confirmed cholecalciferol (vitamin D3) 125 125 mcg PO DAILY 10/02/19 01/24/24 mcg (5,000 unit) tablet albuterol sulfate 90 mcg/actuation 2 puff inhalation Q4H PRN 04/10/21 01/24/24 aerosol inhaler Shortness Of Breath #1 g calcium carbonate (Calcium 600) 1,200 mg PO DAILY 06/16/21 01/24/24 vitamins A,C,I-uvym-zkuhzn 4,296 1 cap PO DAILY 12/14/22 01/24/24 mcg-226 mg-90 mg capsule (PreserVision AREDS) cranberry fruit concentrate 250 mg 250 mg PO BID 02/15/23 01/24/24 chewable tablet (Azo Cranberry) carboxymethylcellulose sodium 1 % 1 drp ophthalmic (eye) BID 08/09/23 01/24/24 eye liquid gel drops (Refresh Liquigel) umeclidinium 62.5 mcg-vilanterol 1 inh inhalation DAILY 11/30/23 01/24/24 25 mcg/actuation powdr for inhalation (Anoro Ellipta) cefdinir 300 mg capsule 0 mg PO DAILY 01/24/24 01/24/24 Previous Rx's Medication Instructions Recorded magnesium 250 mg tablet 250 mg PO DAILY #30 tabs 10/09/21 fluticasone propionate 50 1 - 2 spray intranasal DAILY #18.2 02/05/22 mcg/actuation nasal mL spray,suspension nitroglycerin 0.4 mg sublingual 0.4 mg sublingual UD PRN chest 05/02/22 tablet (Nitrostat) pain #1 btl levothyroxine 75 mcg capsule 75 mcg PO DAILY #90 caps 04/13/23 lisinopril 10 mg tablet 10 mg PO DAILY #90 tabs 04/26/23 Saccharomyces boulardii 250 mg 250 mg PO BID #20 caps 12/13/23 capsule (Florastor) diclofenac sodium 1 % topical gel See Rx Instructions .Route 12/28/23 .COMPLEX #300 grams aspirin 81 mg tablet,delayed 81 mg PO DAILY 17 days #17 tabs 01/08/24 release clopidogrel 75 mg tablet 75 mg PO QAM #30 tabs 01/08/24 polyethylene glycol 3350 17 gram 17 g PO DAILY #30 ea 01/08/24 oral powder packet (Miralax) rosuvastatin 20 mg tablet (Crestor) 20 mg PO QAM #30 tabs 01/08/24 sennosides 8.6 mg-docusate sodium 1 tab PO QAM #30 tabs 01/08/24 50 mg tablet (Senokot-S) Results & Data (ED) Vital Signs Vital Signs - 24 hr 01/24/24 09:28 01/24/24 09:28 01/24/24 09:30 Temperature Temperature Source Pulse Rate 73 75 Pulse Rate [Right Finger] Pulse Rate from SpO2 Sensor 73 73 Pulse Rhythm Pulse Rhythm [Right Finger] Pulse Strength Pulse Strength [Right Finger] Respiratory Rate 24 27 H Respiratory Effort / Characteristics Respiratory Depth Respiratory Pattern Blood Pressure 174/82 H Blood Pressure [Left Arm] Blood Pressure Mean 87 Blood Pressure Mean [Left Arm] Blood Pressure Position Blood Pressure Position [Left Arm] Pulse Oximetry 95 96 Oxygen Delivery Method Oxygen Flow Rate Fraction of Inspired Oxygen Sepsis Recent Fever Within 48 Hours Sepsis New/Unexplained Change in Mental Status Sepsis Action Taken by Nursing 01/24/24 09:31 01/24/24 09:32 01/24/24 09:40 Temperature Temperature Source Pulse Rate 73 72 Pulse Rate [Right Finger] Pulse Rate from SpO2 Sensor 69 Pulse Rhythm Pulse Rhythm [Right Finger] Pulse Strength Pulse Strength [Right Finger] Respiratory Rate 24 Respiratory Effort / Characteristics Respiratory Depth Respiratory Pattern Blood Pressure Blood Pressure [Left Arm] Blood Pressure Mean Blood Pressure Mean [Left Arm] Blood Pressure Position Blood Pressure Position [Left Arm] Pulse Oximetry 98 94 Oxygen Delivery Method Room Air Oxygen Flow Rate Fraction of Inspired Oxygen Sepsis Recent Fever Within 48 Hours Sepsis New/Unexplained Change in Mental Status Sepsis Action Taken by Nursing 01/24/24 09:50 01/24/24 09:58 01/24/24 10:00 Temperature 36.7 C Temperature Source Oral Pulse Rate 75 75 70 Pulse Rate [Right Finger] Pulse Rate from SpO2 Sensor 67 69 Pulse Rhythm Regular Pulse Rhythm [Right Finger] Pulse Strength Normal Pulse Strength [Right Finger] Respiratory Rate 33 H 24 30 H Respiratory Effort / Characteristics Non-Labored Spontaneous Respiratory Depth Normal Respiratory Pattern Regular Blood Pressure 174/86 H Blood Pressure [Left Arm] Blood Pressure Mean 115 Blood Pressure Mean [Left Arm] Blood Pressure Position Semi-fowlers Blood Pressure Position [Left Arm] Pulse Oximetry 93 96 96 Oxygen Delivery Method Room Air Oxygen Flow Rate Fraction of Inspired Oxygen Sepsis Recent Fever Within 48 Hours No Sepsis New/Unexplained Change in Mental Status N/A Sepsis Action Taken by Nursing No Action Required 01/24/24 10:10 01/24/24 10:20 01/24/24 10:30 Temperature Temperature Source Pulse Rate 70 75 74 Pulse Rate [Right Finger] Pulse Rate from SpO2 Sensor 75 76 Pulse Rhythm Pulse Rhythm [Right Finger] Pulse Strength Pulse Strength [Right Finger] Respiratory Rate 30 H 18 25 H Respiratory Effort / Characteristics Respiratory Depth Respiratory Pattern Blood Pressure Blood Pressure [Left Arm] Blood Pressure Mean Blood Pressure Mean [Left Arm] Blood Pressure Position Blood Pressure Position [Left Arm] Pulse Oximetry 98 96 Oxygen Delivery Method Oxygen Flow Rate Fraction of Inspired Oxygen Sepsis Recent Fever Within 48 Hours Sepsis New/Unexplained Change in Mental Status Sepsis Action Taken by Nursing 01/24/24 10:32 01/24/24 10:40 01/24/24 10:50 Temperature Temperature Source Pulse Rate 71 70 74 Pulse Rate [Right Finger] Pulse Rate from SpO2 Sensor 70 74 Pulse Rhythm Regular Pulse Rhythm [Right Finger] Pulse Strength Pulse Strength [Right Finger] Respiratory Rate 20 22 23 Respiratory Effort / Characteristics Respiratory Depth Respiratory Pattern Blood Pressure Blood Pressure [Left Arm] Blood Pressure Mean Blood Pressure Mean [Left Arm] Blood Pressure Position Blood Pressure Position [Left Arm] Pulse Oximetry 96 91 97 Oxygen Delivery Method Room Air Oxygen Flow Rate Fraction of Inspired Oxygen Sepsis Recent Fever Within 48 Hours Sepsis New/Unexplained Change in Mental Status Sepsis Action Taken by Nursing 01/24/24 11:00 01/24/24 11:17 01/24/24 11:20 Temperature Temperature Source Pulse Rate 72 76 76 Pulse Rate [Right Finger] Pulse Rate from SpO2 Sensor 72 74 Pulse Rhythm Pulse Rhythm [Right Finger] Pulse Strength Pulse Strength [Right Finger] Respiratory Rate 26 H 20 27 H Respiratory Effort / Characteristics Respiratory Depth Respiratory Pattern Blood Pressure Blood Pressure [Left Arm] Blood Pressure Mean Blood Pressure Mean [Left Arm] Blood Pressure Position Blood Pressure Position [Left Arm] Pulse Oximetry 95 95 Oxygen Delivery Method Oxygen Flow Rate Fraction of Inspired Oxygen Sepsis Recent Fever Within 48 Hours Sepsis New/Unexplained Change in Mental Status Sepsis Action Taken by Nursing 01/24/24 11:30 01/24/24 11:40 01/24/24 11:54 Temperature Temperature Source Pulse Rate 76 79 107 H Pulse Rate [Right Finger] Pulse Rate from SpO2 Sensor 81 78 Pulse Rhythm Pulse Rhythm [Right Finger] Pulse Strength Pulse Strength [Right Finger] Respiratory Rate 33 H 21 44 H Respiratory Effort / Characteristics Respiratory Depth Respiratory Pattern Blood Pressure Blood Pressure [Left Arm] Blood Pressure Mean Blood Pressure Mean [Left Arm] Blood Pressure Position Blood Pressure Position [Left Arm] Pulse Oximetry 96 97 Oxygen Delivery Method Oxygen Flow Rate Fraction of Inspired Oxygen Sepsis Recent Fever Within 48 Hours Sepsis New/Unexplained Change in Mental Status Sepsis Action Taken by Nursing 01/24/24 11:55 01/24/24 11:55 01/24/24 12:00 Temperature Temperature Source Pulse Rate 92 H Pulse Rate [Right Finger] Pulse Rate from SpO2 Sensor 90 Pulse Rhythm Pulse Rhythm [Right Finger] Pulse Strength Pulse Strength [Right Finger] Respiratory Rate 36 H Respiratory Effort / Characteristics Respiratory Depth Respiratory Pattern Blood Pressure 140/82 183/85 H Blood Pressure [Left Arm] Blood Pressure Mean 112 162 Blood Pressure Mean [Left Arm] Blood Pressure Position Blood Pressure Position [Left Arm] Pulse Oximetry 92 Oxygen Delivery Method Oxygen Flow Rate Fraction of Inspired Oxygen Sepsis Recent Fever Within 48 Hours Sepsis New/Unexplained Change in Mental Status Sepsis Action Taken by Nursing 01/24/24 12:00 01/24/24 12:02 01/24/24 12:10 Temperature 36.7 C Temperature Source Oral Pulse Rate 78 77 Pulse Rate [Right Finger] 71 Pulse Rate from SpO2 Sensor 78 Pulse Rhythm Pulse Rhythm [Right Finger] Regular Pulse Strength Pulse Strength [Right Finger] Normal Respiratory Rate 27 H 20 30 H Respiratory Effort / Characteristics Non-Labored Spontaneous Respiratory Depth Normal Respiratory Pattern Regular Blood Pressure Blood Pressure [Left Arm] 140/78 Blood Pressure Mean Blood Pressure Mean [Left Arm] 98 Blood Pressure Position Blood Pressure Position [Left Arm] Semi-fowlers Pulse Oximetry 96 96 Oxygen Delivery Method Room Air Oxygen Flow Rate Fraction of Inspired Oxygen Sepsis Recent Fever Within 48 Hours Sepsis New/Unexplained Change in Mental Status Sepsis Action Taken by Nursing 01/24/24 12:20 01/24/24 12:30 01/24/24 12:30 Temperature Temperature Source Pulse Rate 76 75 Pulse Rate [Right Finger] Pulse Rate from SpO2 Sensor 78 73 Pulse Rhythm Pulse Rhythm [Right Finger] Pulse Strength Pulse Strength [Right Finger] Respiratory Rate 26 H 31 H Respiratory Effort / Characteristics Respiratory Depth Respiratory Pattern Blood Pressure 158/83 H Blood Pressure [Left Arm] Blood Pressure Mean 109 Blood Pressure Mean [Left Arm] Blood Pressure Position Blood Pressure Position [Left Arm] Pulse Oximetry 93 91 Oxygen Delivery Method Oxygen Flow Rate Fraction of Inspired Oxygen Sepsis Recent Fever Within 48 Hours Sepsis New/Unexplained Change in Mental Status Sepsis Action Taken by Nursing 01/24/24 12:40 01/24/24 12:50 01/24/24 13:00 Temperature Temperature Source Pulse Rate 82 79 Pulse Rate [Right Finger] Pulse Rate from SpO2 Sensor 82 79 Pulse Rhythm Pulse Rhythm [Right Finger] Pulse Strength Pulse Strength [Right Finger] Respiratory Rate 28 H 27 H Respiratory Effort / Characteristics Respiratory Depth Respiratory Pattern Blood Pressure 153/84 H Blood Pressure [Left Arm] Blood Pressure Mean 132 Blood Pressure Mean [Left Arm] Blood Pressure Position Blood Pressure Position [Left Arm] Pulse Oximetry 96 95 Oxygen Delivery Method Oxygen Flow Rate Fraction of Inspired Oxygen Sepsis Recent Fever Within 48 Hours Sepsis New/Unexplained Change in Mental Status Sepsis Action Taken by Nursing 01/24/24 13:00 01/24/24 13:10 01/24/24 13:20 Temperature Temperature Source Pulse Rate 88 80 87 Pulse Rate [Right Finger] Pulse Rate from SpO2 Sensor 87 79 86 Pulse Rhythm Pulse Rhythm [Right Finger] Pulse Strength Pulse Strength [Right Finger] Respiratory Rate 32 H 27 H 27 H Respiratory Effort / Characteristics Respiratory Depth Respiratory Pattern Blood Pressure Blood Pressure [Left Arm] Blood Pressure Mean Blood Pressure Mean [Left Arm] Blood Pressure Position Blood Pressure Position [Left Arm] Pulse Oximetry 93 93 95 Oxygen Delivery Method Oxygen Flow Rate Fraction of Inspired Oxygen Sepsis Recent Fever Within 48 Hours Sepsis New/Unexplained Change in Mental Status Sepsis Action Taken by Nursing 01/24/24 13:30 01/24/24 13:30 01/24/24 13:40 Temperature Temperature Source Pulse Rate 91 H 85 Pulse Rate [Right Finger] Pulse Rate from SpO2 Sensor 92 H 87 Pulse Rhythm Pulse Rhythm [Right Finger] Pulse Strength Pulse Strength [Right Finger] Respiratory Rate 27 H 30 H Respiratory Effort / Characteristics Respiratory Depth Respiratory Pattern Blood Pressure 170/99 H Blood Pressure [Left Arm] Blood Pressure Mean 130 Blood Pressure Mean [Left Arm] Blood Pressure Position Blood Pressure Position [Left Arm] Pulse Oximetry 95 95 Oxygen Delivery Method Oxygen Flow Rate Fraction of Inspired Oxygen Sepsis Recent Fever Within 48 Hours Sepsis New/Unexplained Change in Mental Status Sepsis Action Taken by Nursing 01/24/24 13:42 01/24/24 13:50 01/24/24 14:00 Temperature Temperature Source Pulse Rate 88 86 Pulse Rate [Right Finger] Pulse Rate from SpO2 Sensor 87 Pulse Rhythm Pulse Rhythm [Right Finger] Pulse Strength Pulse Strength [Right Finger] Respiratory Rate 28 H Respiratory Effort / Characteristics Respiratory Depth Respiratory Pattern Blood Pressure 166/88 H Blood Pressure [Left Arm] Blood Pressure Mean 106 Blood Pressure Mean [Left Arm] Blood Pressure Position Blood Pressure Position [Left Arm] Pulse Oximetry 93 Oxygen Delivery Method Oxygen Flow Rate Fraction of Inspired Oxygen Sepsis Recent Fever Within 48 Hours Sepsis New/Unexplained Change in Mental Status Sepsis Action Taken by Nursing 01/24/24 14:00 01/24/24 14:06 01/24/24 14:10 Temperature Temperature Source Pulse Rate 88 81 Pulse Rate [Right Finger] Pulse Rate from SpO2 Sensor 94 H 81 Pulse Rhythm Pulse Rhythm [Right Finger] Pulse Strength Pulse Strength [Right Finger] Respiratory Rate 28 H 28 H 33 H Respiratory Effort / Characteristics Respiratory Depth Respiratory Pattern Blood Pressure Blood Pressure [Left Arm] Blood Pressure Mean Blood Pressure Mean [Left Arm] Blood Pressure Position Blood Pressure Position [Left Arm] Pulse Oximetry 88 L 88 L 99 Oxygen Delivery Method Room Air Oxygen Flow Rate Fraction of Inspired Oxygen Sepsis Recent Fever Within 48 Hours Sepsis New/Unexplained Change in Mental Status Sepsis Action Taken by Nursing 01/24/24 14:11 01/24/24 14:20 01/24/24 14:22 Temperature Temperature Source Pulse Rate 77 78 Pulse Rate [Right Finger] Pulse Rate from SpO2 Sensor 76 Pulse Rhythm Pulse Rhythm [Right Finger] Pulse Strength Pulse Strength [Right Finger] Respiratory Rate 24 21 30 H Respiratory Effort / Characteristics Non-Labored Spontaneous Respiratory Depth Shallow Normal Respiratory Pattern Tachypnea Blood Pressure Blood Pressure [Left Arm] Blood Pressure Mean Blood Pressure Mean [Left Arm] Blood Pressure Position Blood Pressure Position [Left Arm] Pulse Oximetry 99 99 100 Oxygen Delivery Method Nasal Cannula Oxygen Flow Rate 2 Fraction of Inspired Oxygen 30 Sepsis Recent Fever Within 48 Hours Sepsis New/Unexplained Change in Mental Status Sepsis Action Taken by Nursing 01/24/24 14:30 01/24/24 14:30 Temperature Temperature Source Pulse Rate 72 Pulse Rate [Right Finger] Pulse Rate from SpO2 Sensor 69 Pulse Rhythm Pulse Rhythm [Right Finger] Pulse Strength Pulse Strength [Right Finger] Respiratory Rate 33 H Respiratory Effort / Characteristics Respiratory Depth Respiratory Pattern Blood Pressure 154/73 H Blood Pressure [Left Arm] Blood Pressure Mean 114 Blood Pressure Mean [Left Arm] Blood Pressure Position Blood Pressure Position [Left Arm] Pulse Oximetry 100 Oxygen Delivery Method Oxygen Flow Rate Fraction of Inspired Oxygen Sepsis Recent Fever Within 48 Hours Sepsis New/Unexplained Change in Mental Status Sepsis Action Taken by Intermediate Medications Current Medication List: was personally reviewed by me Laboratory Data Attestation: I reviewed the patient's lab results. 01/24/24 10:58 01/24/24 10:58 Lab Results 01/24/24 01/24/24 01/24/24 Range/Units 09:27 10:58 12:11 WBC 6.19 (4.8-10.8) K/ul RBC 3.54 L (4.20-5.40) M/uL Hgb 11.0 L (12.0-16.0) g/dl Hct 34.2 L (37.0-47.0) % MCV 96.6 (80.0-100.0) fL MCH 31.1 (25.0-34.0) pg MCHC 32.2 (32.0-36.0) g/dL RDW Std Deviation 46.6 H (36.4-46.3) fL RDW Coeff of Stiven 13.1 (11.5-14.5) % Plt Count 206 (130-400) K/uL MPV 9.8 (9.4-12.4) fL Immature Gran % (Auto) 0.5 % Neut % (Auto) 74.5 % Lymph % (Auto) 13.7 % [place] % (Auto) 9.7 % Eos % (Auto) 0.8 % Baso % (Auto) 0.8 % Neut # (Auto) 4.61 (1.40-6.50) K/uL Lymph # (Auto) 0.85 L (1.20-3.40) K/uL [place] # (Auto) 0.60 H (0.11-0.59) K/uL Eos # (Auto) 0.05 (0.00-0.50) K/uL Baso # (Auto) 0.05 (0.00-0.20) K/uL Immature Gran # (Auto) 0.03 (0.01-0.20) K/uL PT 11.1 (9.0-12.0) Seconds INR 1.0 (0.9-1.1) Sodium 138 (136-145) mmol/L Potassium 5.1 (3.5-5.1) mmol/L Chloride 106 (98-107) mmol/L Carbon Dioxide 24 (21-32) mmol/L Anion Gap 8 (3-11) BUN 29 H (6-23) mg/dl Creatinine 1.21 H (0.6-1.2) mg/dl Est Cr Clr Drug Dosing 30.6 ml/min Est GFR ( Amer) 45.9 ml/min Est GFR (Non-Af Amer) 39.6 ml/min BUN/Creatinine Ratio 24.0 H (10-20) Glucose 106 H (70-99(Fasting)) mg/dl Calcium 8.5 L (8.6-10.3) mg/dl Magnesium 1.7 (1.7-2.4) mg/dl Total Bilirubin 0.5 (0.2-1.0) mg/dl AST 17 (13-39) U/L ALT 9 (7-52) U/L Alkaline Phosphatase 45 (34-104) U/L Troponin I High Sens 53.8 H* 54.2 H* (0-14) pg/ml Total Protein 6.4 (6.0-8.3) gm/dl Albumin 3.5 (3.4-5.0) gm/dl Globulin 2.9 (2.5-4.0) gm/dl Albumin/Globulin Ratio 1.2 (0.9-2) TSH 1.316 (0.300-4.500) uIu/ml SARS-CoV-2 (PCR) NEGATIVE (Negative) Influenza Type A (PCR) Negative (Neg) Influenza Type B (PCR) Negative (Neg) RSV (RT-PCR) Negative (Neg) Administered Medications Discontinued Medications Acetaminophen (Acetaminophen 500 Mg Tab) 1,000 mg PO NOW STA Stop: 01/24/24 13:43 Last Admin: 01/24/24 13:56 Dose: 1,000 mg Documented By: CAW Furosemide (Furosemide 40 Mg/4 Ml Vial) 60 mg IV ONE ONE Stop: 01/24/24 14:07 Last Admin: 01/24/24 14:11 Dose: 60 mg Documented By: CAW Sodium Chloride (Nss) 250 mls @ 999 mls/hr IV .Q16M ONE Stop: 01/24/24 10:06 Last Infusion: 01/24/24 17:10 Dose: Infused Documented By: Admin: 01/24/24 11:40 Dose: 999 mls/hr Documented By: CAW Ondansetron HCl (Ondansetron Inj 2 Mg/Ml 2 Ml Vial) 4 mg IV NOW STA Stop: 01/24/24 13:43 Last Admin: 01/24/24 13:56 Dose: 4 mg Documented By: CAW Imaging Data Radiologist's Impression: Chest X-Ray 01/24/24 10:28 SINGLE VIEW CHEST CLINICAL HISTORY: Generalized weakness. FINDINGS: An AP, portable, upright chest radiograph is compared to study dated 01/04/2024. Correlation is made with chest CT dated 12/13/2023. The examination is degraded by portable technique and patient rotation. The heart is enlarged noting atherosclerotic calcification of the thoracic aorta. The pulmonary vasculature is not congested. Emphysema and chronic interstitial thickening is similar to previous. There is bibasilar scarring/atelectasis. No large pleural effusion or no pneumothorax is seen. The skeletal structures are osteopenic. The bony thorax is grossly intact. Degenerative change is noted in the shoulders and spine. IMPRESSION: Cardiomegaly and emphysema with no acute cardiopulmonary abnormality identified ACT 112: Negative or not required by law. Electronically signed by: Aneudy Schneider M.D. 01/24/2024 10:[address] 01/24/24 10:29 CT SCAN OF THE BRAIN WITHOUT IV CONTRAST CLINICAL HISTORY: Gait imbalance. COMPARISON STUDY: CT of the brain dated 01/04/2024. TECHNIQUE: Unenhanced axial CT scan of the brain is performed from the vertex to the skull base. A dose lowering technique was utilized adhering to the principles of ALARA. CT DOSE: 625.8 mGy.cm FINDINGS: Brain parenchyma: There is age-related involutional change noting advanced confluent subcortical and periventricular microangiopathic disease. There is no hemorrhage, mass effect, or evidence of acute territorial ischemia by CT criteria. Mineralization is noted in the basal ganglia. Clarke-white matter differentiation is preserved. No extra-axial fluid collection is seen. Ventricles, sulci, cisterns: Prominent secondary to involutional change. Intracranial vasculature: There is atherosclerotic calcification of the cavernous carotid and vertebral arteries. Calvarium: Unremarkable. Sinuses and mastoids: There is mild mucosal thickening in the left maxillary antrum. The remaining Paranasal sinuses are clear. The mastoid air cells are well pneumatized. Orbits: The bony orbits are grossly intact. There are bilateral ocular lens implants. IMPRESSION: There is no hemorrhage, mass effect, or evidence of acute territorial ischemia by CT criteria. ACT 112: Negative or not required by law. Electronically signed by: Aneudy Schneider M.D. 01/24/2024 11:22 AM Chest X-Ray 01/24/24 14:06 SINGLE VIEW CHEST CLINICAL HISTORY: Generalized weakness. FINDINGS: An AP, portable, upright chest radiograph is compared to study performed earlier the same day 01/24/2024. Correlation is made with chest CT dated 12/13/2023. The examination is degraded by portable technique and patient rotation. The heart is enlarged noting atherosclerotic calcification of the thoracic aorta. There is pulmonary vascular congestion. Emphysema and chronic interstitial thickening is similar to previous. There are mild bibasilar airspace opacities. No large pleural effusion or no pneumothorax is seen. The skeletal structures are osteopenic. The bony thorax is grossly intact. Degenerative change is noted in the shoulders and spine. IMPRESSION: 1. Cardiomegaly and emphysema. There is developing pulmonary vascular congestion. 2. Bibasilar opacities likely represents scarring/atelectasis. Correlate clinically for evidence of a mild pneumonitis ACT 112: Negative or not required by law. Electronically signed by: Aneudy Schneider M.D. 01/24/2024 2:45 PM Discharge Plan Visit Data Chief Complaint: Weakness Stated Complaint: WEAKNESS, UNSTEADY GAIT ED Provider: Candelario Krishnamurthy Discharge Problem: Acute respiratory failure with hypoxia, Acute HFrEF (heart failure with reduced ejection fraction), Weakness, Gait instability Patient Disposition: Admitted As Inpatient Discharge Instructions Interventions: ED Discharge Assessment Last Done: 01/24/24 16:31
--- NOTE | 2024-01-24 10:57 | XRay Report ---
SINGLE VIEW CHEST CLINICAL HISTORY: Generalized weakness. FINDINGS: An AP, portable, upright chest radiograph is compared to study dated 01/04/2024. Correlation is made with chest CT dated 12/13/2023. The examination is degraded by portable technique and patient rotation. The heart is enlarged noting atherosclerotic calcification of the thoracic aorta. The pul monary vasculature is not congested. Emphysema and chronic interstitial thickening is similar to prev ious. There is bibasilar scarring/atelectasis. No large pleural effusion or no pneumothorax is seen. The skeletal structures are osteopenic. The bony thorax is grossly intact. Degenerative change is not ed in the shoulders and spine. IMPRESSION: Cardiomegaly and emphysema with no acute cardiopulmonary abnormality identified ACT 112: Negative or not required by law. Electronically signed by: Aneudy Schneider M.D. 01/24/2024 10:55 AM
[2024-01-24 11:17] LABS: Influenza A virus by PCR Negative (Neg); Influenza B virus by PCR Negative (Neg); RSV by PCR Negative (Neg); SARS CoV2 RNA(COVID-19) Ceph NEGATIVE (Negative)
[2024-01-24 11:18] LABS: Hematocrit (blood only) 34.2 % (37.0-47.0); Mean Corpuscular Hemoglobin 31.1 pg (25.0-34.0); Mean Corpuscular Hgb Conc 32.2 g/dL (32.0-36.0); Mean Corpuscular Volume 96.6 fL (80.0-100.0); Mean Platelet Volume 9.8 fL (9.4-12.4); Platelet Count 206 K/uL (130-400); RDW Coefficient of Variation 13.1 % (11.5-14.5); RDW Standard Deviation 46.6 fL (36.4-46.3); Red Blood Count 3.54 M/uL (4.20-5.40); White Blood Count 6.19 K/ul (4.8-10.8)
[2024-01-24 11:19] LABS: Basophils # (auto) 0.05 K/uL (0.00-0.20); Basophils % (auto) 0.8 %; Eosinophils # (auto) 0.05 K/uL (0.00-0.50); Eosinophils % (auto) 0.8 %; Immature Granulocytes # (auto) 0.03 K/uL (0.01-0.20); Immature Granulocytes % (auto) 0.5 %; Lymphocytes # (auto) 0.85 K/uL (1.20-3.40); Lymphocytes % (auto) 13.7 %; Monocytes % (auto) 9.7 %; Neutrophils # (auto) 4.61 K/uL (1.40-6.50); Neutrophils % (auto) 74.5 %
--- NOTE | 2024-01-24 11:23 | CT Scan Report ---
CT SCAN OF THE BRAIN WITHOUT IV CONTRAST CLINICAL HISTORY: Gait imbalance. COMPARISON STUDY: CT of the brain dated 01/04/2024. TECHNIQUE: Unenhanced axial CT scan of the brain is performed from the vertex to the skull base. A do se lowering technique was utilized adhering to the principles of ALARA. CT DOSE: 625.8 mGy.cm FINDINGS: Brain parenchyma: There is age-related involutional change noting advanced confluent subcortical and periventricular microangiopathic disease. There is no hemorrhage, mass effect, or evidence of acute t erritorial ischemia by CT criteria. Mineralization is noted in the basal ganglia. Clarke-white matter d ifferentiation is preserved. No extra-axial fluid collection is seen. Ventricles, sulci, cisterns: Prominent secondary to involutional change. Intracranial vasculature: There is atherosclerotic calcification of the cavernous carotid and vertebr al arteries. Calvarium: Unremarkable. Sinuses and mastoids: There is mild mucosal thickening in the left maxillary antrum. The remaining Pa ranasal sinuses are clear. The mastoid air cells are well pneumatized. Orbits: The bony orbits are grossly intact. There are bilateral ocular lens implants. IMPRESSION: There is no hemorrhage, mass effect, or evidence of acute territorial ischemia by CT jenae tyson. ACT 112: Negative or not required by law. Electronically signed by: Aneudy Schneider M.D. 01/24/2024 11:22 AM
[2024-01-24 11:33] LABS: Albumin Level 3.5 gm/dl (3.4-5.0); Bilirubin,Total 0.5 mg/dl (0.2-1.0); Calcium 8.5 mg/dl (8.6-10.3); Magnesium 1.7 mg/dl (1.7-2.4); Potassium 5.1 mmol/L (3.5-5.1)
[2024-01-24 11:39] LABS: Albumin Globulin Ratio 1.2 (0.9-2); Creatinine Clr Calc Pharmacy 30.6 ml/min; Est GFR (African American) 45.9 ml/min; Est GFR (Non-African American) 39.6 ml/min; Globulin 2.9 gm/dl (2.5-4.0); Total Protein 6.4 gm/dl (6.0-8.3)
[2024-01-24] MEDS: SODIUM CHLORIDE 0.9% 250 ML IV ONE (11:40)
[2024-01-24 11:52] LABS: Thyroid Stimulating Hormone 1.316 uIu/ml (0.300-4.500)
[2024-01-24 12:52] LABS: Prothrombin Time 11.1 Seconds (9.0-12.0)
[2024-01-24] MEDS: ONDANSETRON INJ 2 MG/ML 2 ML VIAL IV STA (13:56)
[2024-01-24] MEDS: ACETAMINOPHEN 500 MG TAB PO STA (13:56)
[2024-01-24] MEDS: FUROSEMIDE 40 MG/4 ML VIAL IV ONE (14:11)
--- NOTE | 2024-01-24 14:33 | History & Physical Report ---
Date of Service January 24, 2024 Assessment & Plan (1) Acute respiratory failure with hypoxia: Plan: -Admit to the PCU on tele and pulse oximetry -Initially presented to the [facility] ED in stable condition for ongoing dizziness/lightheadedness and ambulatory dysfunction since her admission earlier this month -Was accidentally given 1250 cc NSS instead of the 250 cc NSS bolus initially ordered -Subsequently went into acute respiratory failure with hypoxia in the mid 80's on RA, tachypnea, and signs of pulmonary edema on repeat CXR -Was given 60 mg IV lasix and placed on Bipap in the ED, currently comfortable and in no respiratory distress -Will continue to monitor respiratory status closely over the next few hours, will attempt to wean off bipap if she is stable -Would avoid additional IV fluids unless absolutely necessary -Monitor intake/output Q-sift -Incentive spirometry, flutter therapy, prn O2 to keep SpO2 between 89-92% -BL DEBORAH's for DVT PPX -NPO while on CPAP/Bipap -AM CBC, CMP, mag, PT/INR (2) CVA (cerebral vascular accident): Plan: -No new neuro defects since last admission -Continue aspirin and plavix for now -Per DC summary, patient should begin Plavix Monotherapy on 01/26/24 (order has been updated to reflect this) -Continue statin (3) Acute HFrEF (heart failure with reduced ejection fraction): Plan: -Acute exacerbation of chronic heart failure with reduced EF -Likely due to patient receiving 1250 cc of NSS instead of 250 cc NSS ordered by ED staff -Continue Bipap for now, monitor for adequate diuresis after 60 mg IV lasix in the ED -Will hold additional scheduled doses of diuretics for now and see how she responds to initial treatment as she is high risk for orthostasis and syncope (4) Ambulatory dysfunction: Plan: -Patient with ongoing ambulatory dysfunction since last admission -Was recently discharged back to independent living from [facility] -Family has been working on placement at SNF as patient requires additional care -PT/OT consults placed in preparation for placement at SNF -Fall precautions ordered (5) Elevated troponin: Plan: -Initial high sen trop of 53 -->54 on 2 hour repeat -Patient denies chest pain, no acute ST segment or T-wave changes -Was likely due to demand and her troponin was elevated last admission as well -Will continue to trend her high sen trop overnight and monitor on tele (6) UTI (urinary tract infection) due to Enterococcus: Plan: -Experienced increased urinary frequency/urgency last admission -UA was reportedly positive, patient was discharged on a 6 day course of Cefdinir while urine cultures were pending -Final urine cultures results show group B strep and Staph Aureus (pansensitive) -Patient did complete her course of Cefdinir outpatient -Patient denies current urinary symptoms, no leukocytosis -Will obtain repeat UA to monitor for ongoing infection, but will hold additional abx for now as patient is asymptomatic and otherwise clinically stable (7) Hypothyroidism: Plan: -Continue levothyroxine (8) HTN (hypertension): Plan: -Currently stable -Holding home lisinopril for now to avoid hypotension/orthostasis with 60 mg IV lasix given in the ED (9) COPD (chronic obstructive pulmonary disease): Plan: -Was not in a COPD exacerbation on arrival -Does not have wheezing on lung exam -Continue home Anoro Ellipta with PRN albuterol -Incentive spirometry/flutter therapy Plan The patient was discussed with Dr. Lowe at the time of the admission History of Present Illness Chief Complaint: Progressive generalized weakness and ambulatory dysfunction Primary Care Provider: Kory Wan DO Araujo is an 88yo female with PMH of recent admission to [facility] for multiple punctate CVAs in the right frontal, parietal, occipital, and zepeda radiata, HFrEF (LVEF of 40-45%), hypothyroidism, frequent falls, syncope, HTN, osteoporosis, arthritis, COPD, vertebral basilar insufficiency, and urinary incontinence who presented to the [facility] ED from her independent living facility on 01/24/24 due to ongoing generalized weakness and ambulatory dysfunction. The patient was admitted to [facility] from 01/04/24-01/08/24 after sustaining a fall at home. Please see discharge summary from 01/08/24 for full details. Neurology and Vascular surgery were consult and thought her symptoms of dizziness/lightheadedness/syncope were not related to her new CVA's or known vascular disease but due to hypotension/orthostasis/vasovagal episodes. The patient was started on dual antiplatelet therapy and Crestor for her CVA's. Her Dyazide was stopped to help prevent recurrent hypotension/syncope. She was treated for possible UTI and was discharged with a 6 day course of Cefdinir. The patient was discharged to [facility] and was recently discharged back to her independent living facility. In the ED today, she was initially noted to be stable. Labs were significant for an initial high sen trop of 53 --> 54 on 2 hour repeat, TSH was WNL, and Influenza/Covid 19/RSV screens were negative. CT of the head/petros wo con and initial CXR were read as negative for acute findings. The patient was ordered 250 cc NSS, 1gm IV tylenol, and 4 mg IV zofran with initial plans to admit back to [facility]. The ED staff reported a communication error and the patient was given 1250 cc NSS instead of 250 cc as ordered. The patient subsequently developed respiratory distress, hypoxia with SpO2 in the mid 80's on RA, and new pulmonary edema on repeat chest xray.Prior to admission the patient was given 60 mg IV lasix and was placed on Bipap. At the time of the exam the patient was sitting in bed, in no acute distress, with bipap in place. She states she felt comfortable with the current bipap settings and did not feel as though she was having to work hard to breath. She confirms that she has been experiencing the same lightheadedness/dizziness and ambulatory dysfunction which she presented with last admission. However, she feels as though these symptoms have been getting worse since being discharged back home. She denies new neurologic symptoms, changes in vision, hearing, taste, or smell, chest pain, abd pain, nausea, vomiting, diarrhea, dysuria, hematuria, LE swelling. We discussed code status, the patient is alert and completely oriented. She would want full resuscitation in the event of cardiac or respiratory failure. Attempted to call patient's Daughter, Isha Higuera ([phone]) but was sent to [facility]. The ED staff did confirm they spoke with the patient's daughter who explained that they have been working on permanent placement in a longterm facility. Please refer to Dr. Lowe' attestation for any changes to the treatment plan Allergies Allergy/AdvReac Type Severity Reaction Status Date / Time latex Allergy Intermediate SEVERE Verified 01/04/24 13:55 ITCHING cephalexin Allergy Mild RASH Verified 01/04/24 13:55 Home Medications Medication Instructions Recorded Confirmed Type cholecalciferol (vitamin D3) 125 125 mcg PO DAILY 10/02/19 01/24/24 History mcg (5,000 unit) tablet albuterol sulfate 90 mcg/actuation 2 puff inhalation Q4H PRN 04/10/21 01/24/24 History aerosol inhaler Shortness Of Breath #1 g calcium carbonate (Calcium 600) 1,200 mg PO DAILY 06/16/21 01/24/24 History magnesium 250 mg tablet 250 mg PO DAILY #30 tabs 10/09/21 01/24/24 Rx fluticasone propionate 50 1 - 2 spray intranasal DAILY #18.2 02/05/22 01/24/24 Rx mcg/actuation nasal mL spray,suspension nitroglycerin 0.4 mg sublingual 0.4 mg sublingual UD PRN chest 05/02/22 01/24/24 Rx tablet (Nitrostat) pain #1 btl vitamins A,C,T-luok-ufzofo 4,296 1 cap PO DAILY 12/14/22 01/24/24 History mcg-226 mg-90 mg capsule (PreserVision AREDS) cranberry fruit concentrate 250 mg 250 mg PO BID 02/15/23 01/24/24 History chewable tablet (Azo Cranberry) levothyroxine 75 mcg capsule 75 mcg PO DAILY #90 caps 04/13/23 01/24/24 Rx lisinopril 10 mg tablet 10 mg PO DAILY #90 tabs 04/26/23 01/24/24 Rx carboxymethylcellulose sodium 1 % 1 drp ophthalmic (eye) BID 08/09/23 01/24/24 History eye liquid gel drops (Refresh Liquigel) umeclidinium 62.5 mcg-vilanterol 1 inh inhalation DAILY 11/30/23 01/24/24 History 25 mcg/actuation powdr for inhalation (Anoro Ellipta) Saccharomyces boulardii 250 mg 250 mg PO BID #20 caps 12/13/23 01/24/24 Rx capsule (Florastor) diclofenac sodium 1 % topical gel See Rx Instructions .Route 12/28/23 01/24/24 Rx .COMPLEX #300 grams aspirin 81 mg tablet,delayed 81 mg PO DAILY 17 days #17 tabs 01/08/24 01/24/24 Rx release clopidogrel 75 mg tablet 75 mg PO QAM #30 tabs 01/08/24 01/24/24 Rx polyethylene glycol 3350 17 gram 17 g PO DAILY #30 ea 01/08/24 01/24/24 Rx oral powder packet (Miralax) rosuvastatin 20 mg tablet (Crestor) 20 mg PO QAM #30 tabs 01/08/24 01/24/24 Rx sennosides 8.6 mg-docusate sodium 1 tab PO QAM #30 tabs 01/08/24 01/24/24 Rx 50 mg tablet (Senokot-S) cefdinir 300 mg capsule 0 mg PO DAILY 01/24/24 01/24/24 History Past Med/Surg History Medical History (Updated 01/24/24 @ 15:14 by Norberto Bedolla PA-C) COPD (chronic obstructive pulmonary disease) Carotid stenosis, right CKD (chronic kidney disease), stage III Vertebrobasilar insufficiency Moderate mitral regurgitation HFrEF (heart failure with reduced ejection fraction) EF 30% - 2023 echo Chronic kidney disease, stage IV (severe) Hypothyroidism Impaired fasting glucose Falls frequently Anemia Syncope (08/2022) Chest pain at rest Subclavian artery stenosis, right Chronic cerebral ischemia Vertebral artery stenosis Acute chest wall pain LBBB (left bundle branch block) Acute severe vertigo Pasteurella infection with bacteremia, 2nd to cat scratch and RUE cellulitis - 06/16 COVID-19 09/2021 - required hospitalization Acute on chronic systolic heart failure Chronic kidney disease, stage IV (severe) Pseudogout of hand Septic arthritis of hand, right Gram-negative bacteremia Right arm cellulitis Situational anxiety ARF (acute renal failure) UTI (urinary tract infection) recurrent Balance problems Bradycardia Secondary hypothyroidism Nocturia Arthritis, multiple joint involvement Osteoporosis Hypercholesterolemia HTN (hypertension) Surgical History History of rotator cuff surgery Jul 2011--Dr. Whitten History of carpal tunnel surgery History of myringotomy History of inguinal hernia repair History of bunionectomy History of breast biopsy Hx of adenoidectomy Hx of tonsillectomy H/O: hysterectomy S/P appendectomy S/P cholecystectomy Family History Mother , in her 80s of multiple CVAs Alzheimer disease Stroke Father , age 78 of COPD complications Emphysema, unspecified COPD (chronic obstructive pulmonary disease) Grandfather (Maternal) Colorectal cancer Uncle Prostate cancer Denies family history of Ovarian cancer Diabetes Coronary heart disease Heart disease Myocardial infarction Breast cancer Lung cancer Social History Smoking Status: Former smoker Tobacco Type: Cigarettes Age Started Using Tobacco: 23; Age Quit Using Tobacco: 61; Cigarettes Per Day: 1 ppd; Second Hand Exposure: No; Do You Dip or Chew Tobacco: No; Hx Alcohol Use: No Hx Substance Use: No Preferred Language: Botswanan Communication Ability: Effective Visual Impairment: Limited Hearing Ability: Use of Hearing Aid 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 Required: No Beliefs That Will Affect Care: None marital status: Current Living Situation: Alone Current Living Situation Comment: independent elderly apartment current occupational 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[facility], 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 How many Children do You have: 2 Feels Safe at Home: Yes Childhood Exposure to Second-Hand Smoke: Yes Diet: regular caffeine: Yes Dental Care, Regularly: No Physical Activity Frequency: Does not Exercise Seatbelt Use: always Sunscreen Use: No Assistive Devices: Cane Physical Exam Physical Exam: Physical Exam: General: In no acute distress, stated age, well-nourished, non-toxic appearing HEENT: Normocephalic, atraumatic, no scleral icterus, pupils around round, symmetrical, and reactive to light, currently with bipap mask in place and without air leak, trachea midline, no thyromegaly Chest/Pulm: No respiratory distress, symmetrical chest expansion, rales and crackles noted in the BL lower and mid lung fuentes, BL upper lung fuentes are CTA Cardiac: RRR, no murmurs noted Abdomen: Negative for ascites and bruising, normoactive bowel sounds, soft, non-tender to palpation throughout Musculoskeletal: Symmetrical and without signs of acute trauma, upper and lower extremities with full ROM, no atrophy, spasticity, or flaccidity Extremities: Radial, dorsalis pedis, and posterior tibial pulses are intact and symmetrical, no edema noted in the BL LE's Skin: Warm, dry, no rashes , lesions, or scars noted Neuro: Alert and oriented to person, place, month, year, and president, no focal defects, symmetrical strength in the BL upper and lower extremities Psych: No acute distress, calm and cooperative during the exam Results & Data Results & Data Vital Signs (Past 12 Hours) Vital Signs Temp Pulse Pulse Resp BP BP Pulse Ox 01/24/24 14:11 24 99 04/30/24 14:06 28 H 88 L 01/24/24 13:42 88 01/24/24 12:02 36.7 C 71 20 140/78 96 01/24/24 10:32 71 20 96 01/24/24 09:58 36.7 C 75 24 174/86 H 96 01/24/24 09:32 98 01/24/24 09:31 73 O2 Del Method O2 Flow Rate 01/24/24 14:11 Nasal Cannula 2 01/24/24 14:06 Room Air 01/24/24 13:42 01/24/24 12:02 Room Air 01/24/24 10:32 Room Air 01/24/24 09:58 Room Air 01/24/24 09:32 Room Air 01/24/24 09:31 Laboratory Results Abnormal lab results 01/24/24 01/24/24 Range/Units 10:58 12:11 RBC 3.54 L (4.20-5.40) M/uL Hgb 11.0 L (12.0-16.0) g/dl Hct 34.2 L (37.0-47.0) % RDW Std Deviation 46.6 H (36.4-46.3) fL Lymph # (Auto) 0.85 L (1.20-3.40) K/uL Hudspeth # (Auto) 0.60 H (0.11-0.59) K/uL BUN 29 H (6-23) mg/dl Creatinine 1.21 H (0.6-1.2) mg/dl BUN/Creatinine Ratio 24.0 H (10-20) Glucose 106 H (70-99(Fasting)) mg/dl Calcium 8.5 L (8.6-10.3) mg/dl Troponin I High Sens 53.8 H* 54.2 H* (0-14) pg/ml Diagnostic Findings Chest X-Ray 01/24/24 10:28 SINGLE VIEW CHEST CLINICAL HISTORY: Generalized weakness. FINDINGS: An AP, portable, upright chest radiograph is compared to study dated 01/04/2024. Correlation is made with chest CT dated 12/13/2023. The examination is degraded by portable technique and patient rotation. The heart is enlarged noting atherosclerotic calcification of the thoracic aorta. The pulmonary vasculature is not congested. Emphysema and chronic interstitial thickening is similar to previous. There is bibasilar scarring/atelectasis. No large pleural effusion or no pneumothorax is seen. The skeletal structures are osteopenic. The bony thorax is grossly intact. Degenerative change is noted in the shoulders and spine. IMPRESSION: Cardiomegaly and emphysema with no acute cardiopulmonary abnormality identified ACT 112: Negative or not required by law. Electronically signed by: Aneudy Schneidre M.D. 01/24/2024 10:[address] 01/24/24 10:29 CT SCAN OF THE BRAIN WITHOUT IV CONTRAST CLINICAL HISTORY: Gait imbalance. COMPARISON STUDY: CT of the brain dated 01/04/2024. TECHNIQUE: Unenhanced axial CT scan of the brain is performed from the vertex to the skull base. A dose lowering technique was utilized ad[facility]. CT DOSE: 625.8 mGy.cm FINDINGS: Brain parenchyma: There is age-related involutional change noting advanced confluent subcortical and periventricular microangiopathic disease. There is no hemorrhage, mass effect, or evidence of acute territorial ischemia by CT criteria. Mineralization is noted in the basal ganglia. Clarke-white matter differentiation is preserved. No extra-axial fluid collection is seen. Ventricles, sulci, cisterns: Prominent secondary to involutional change. Intracranial vasculature: There is atherosclerotic calcification of the cavernous carotid and vertebral arteries. Calvarium: Unremarkable. Sinuses and mastoids: There is mild mucosal thickening in the left maxillary antrum. The remaining Paranasal sinuses are clear. The mastoid air cells are well pneumatized. Orbits: The bony orbits are grossly intact. There are bilateral ocular lens implants. IMPRESSION: There is no hemorrhage, mass effect, or evidence of acute territorial ischemia by CT criteria. ACT 112: Negative or not required by law. Electronically signed by: Aneudy Schneider M.D. 01/24/2024 11:22 AM Chest X-Ray 01/24/24 14:06 SINGLE VIEW CHEST CLINICAL HISTORY: Generalized weakness. FINDINGS: An AP, portable, upright chest radiograph is compared to study performed earlier the same day 01/24/2024. Correlation is made with chest CT dated 12/13/2023. The examination is degraded by portable technique and patient rotation. The heart is enlarged noting atherosclerotic calcification of the thoracic aorta. There is pulmonary vascular congestion. Emphysema and chronic interstitial thickening is similar to previous. There are mild bibasilar airspace opacities. No large pleural effusion or no pneumothorax is seen. The skeletal structures are osteopenic. The bony thorax is grossly intact. Degenerative change is noted in the shoulders and spine. IMPRESSION: 1. Cardiomegaly and emphysema. There is developing pulmonary vascular congestion. 2. Bibasilar opacities likely represents scarring/atelectasis. Correlate clinically for evidence of a mild pneumonitis ACT 112: Negative or not required by law. Electronically signed by: Aneudy Schneider M.D. 01/24/2024 2:45 PM ECG Additional Comments: Sinus rhythm with Premature supraventricular complexes Left bundle branch block Abnormal ECG When compared with ECG of 04-JAN-2024 16:41, Left bundle branch block is now Present Code Status & VTE Plan Code Status Full code VTE Prophylaxis Plan VTE Prophylaxis will be ordered: Yes Supervising Physician Co-Signing Physician Notes I have personally seen, evaluated and examined the patient. I have also personally discussed the management of the patient with the resident physician/ROM and I agree with the exam findings documented in the history and physical examination and the documented assessment and plan unless otherwise stated below. Brief Exam: In general very pleasant 88-year-old female she is alert and oriented x 3 at the time of my examination she is comfortable on the BiPAP at this time. She is talking in sentences. She did admit to acute shortness of breath which seems to be improving with the BiPAP and Lasix therapy. HEENT: Normocephalic atraumatic. Heart: Fairly regular on auscultation no jeanna murmur. Lungs are coarse bilaterally she does have cardiac rales especially in the bases. Abdomen: Soft nontender. Extremities: Intact. Neurologically unchanged with no specific complaints except her underlying stroke issues with balance excetra. But there is no focal deficit today. Assessment/plan: As described above. Please refer to orders for further planning. This ends dictation PG Care Time/CCT Total # of Minutes Spent Total Time Spent with Patient: Total time spent is greater than 50% in coordination of care (as documented) at patient's floor/unit and/or counseling patient: Coding [place] [address] INT INP/OBS CARE 3/75MIN Patient Type Established Medical Decision Making High Complexity Diagnoses Acute respiratory failure with hypoxia J96.01 CVA (cerebral vascular accident) I63.9 Acute HFrEF (heart failure with reduced ejection fraction) I50.21 Ambulatory dysfunction R26.2 Elevated troponin R77.8 UTI (urinary tract infection) due to Enterococcus N39.0; B95.2 Hypothyroidism E03.9 HTN (hypertension) I10 COPD (chronic obstructive pulmonary disease) J44.9
--- NOTE | 2024-01-24 14:46 | XRay Report ---
SINGLE VIEW CHEST CLINICAL HISTORY: Generalized weakness. FINDINGS: An AP, portable, upright chest radiograph is compared to study performed earlier the same d ay 01/24/2024. Correlation is made with chest CT dated 12/13/2023. The examination is degraded by cristin ble technique and patient rotation. The heart is enlarged noting atherosclerotic calcification of th e thoracic aorta. There is pulmonary vascular congestion. Emphysema and chronic interstitial thickeni ng is similar to previous. There are mild bibasilar airspace opacities. No large pleural effusion or no pneumothorax is seen. The skeletal structures are osteopenic. The bony thorax is grossly intact. D egenerative change is noted in the shoulders and spine. IMPRESSION: 1. Cardiomegaly and emphysema. There is developing pulmonary vascular congestion. 2. Bibasilar opacities likely represents scarring/atelectasis. Correlate clinically for evidence of a mild pneumonitis ACT 112: Negative or not required by law. Electronically signed by: Aneudy Schneider M.D. 01/24/2024 2:45 PM
--- NOTE | 2024-01-24 16:09 | Electrocardiogram Report ---
Test Reason : Blood Pressure : / mmHG Vent. Rate : 072 BPM Atrial Rate : 072 BPM P-R Int : 150 ms QRS Dur : 128 ms QT Int : 416 ms P-R-T Axes : 051 -23 126 degrees QTc Int : 455 ms Poor data quality, interpretation may be adversely affected Sinus rhythm with Premature supraventricular complexes Left bundle branch block Abnormal ECG When compared with ECG of 04-JAN-2024 16:41, Left bundle branch block is now Present Confirmed by Wali May ([id number]) on 01/24/2024 4:09:06 PM Referred By: REFERRED SELF Confirmed By:Wali May
[2024-01-24] MEDS ORDERED: ALBUTEROL HFA 8 GM INHALER INH PRN (17:07)
[2024-01-24 19:52] LABS: Appearance Urine Clear (Clear); Bilirubin Urine Negative (Negative); Blood Urine Negative (Negative); Color Urine Yellow; Glucose Urine UA Negative (Negative); Ketones Urine Negative (Negative); Leukocyte Esterase Urine Negative (Negative); Nitrite Urine Negative (Negative); Protein Urine Negative (Negative); Specific Gravity Urine 1.007 (1.000-1.030); Urobilinogen Urine Negative (Negative)
--- OUTSIDE RECORDS SUMMARY | 2024-01-24 19:57 | External Medical Summary ---
Author Name Unknown Address Unknown Organization K09:[facility] [address] [place] [address] Laboratory Report Ordering Provider Test Date Status WILL GUTIERREZ 01/09/2024 06:00:00 Final Observation Date Value Abnormality Reference (Units ) Status WBC, Total 01/09/2024 06:00:00 7.15 4.00-10.8 0 (K/uL) Final RBC 01/09/2024 06:00:00 3.51 3.85-5.15 (M/uL) Final Hemoglobin 01/09/2024 06:00:00 10.9 Below low normal 12 .0-15.3 (g/dL) Final HCT 01/09/2024 06:00:00 35.6 Below low normal 36. 0-45.2 (%) Final MCV 01/09/2024 06:00:00 101.4 81.5-97.5 (fL) Final MCH 01/09/2024 06:00:00 31.1 27.0-34.0 (pg) Final MCHC 01/09/2024 06:00:00 30.6 32.0-36.0 (g/dL) Final RDW 01/09/2024 06:00:00 13.2 11.5-15.5 (%) Final Platelets 01/09/2024 06:00:00 210 140-400 (K /uL) Final MPV 01/09/2024 06:00:00 11.4 6.6-11.1 ( fL) Final Performing Location [facility] [place] [address]
--- OUTSIDE RECORDS SUMMARY | 2024-01-24 19:57 | External Medical Summary ---
Author Name Unknown Address Unknown Organization K09[facility] [place] [place] [address] Laboratory Report Ordering Provider Test Date Status WILL GUTIERREZ 01/16/2024 06:28:59 Final Observation Date Value Abnormality Reference (Units ) Status BUN 01/16/2024 06:28:59 37 Above high normal 6-20 (mg/dL) Final Creatinine 01/16/2024 06:28:59 1.5 Above high normal 0.5-1.0 (mg/dL) Final Glomerular filtration rate/1.73 sq M.predicted [Volume Rate/Area] in Serum, Plasma or Blood by Creatinine-based formula (CKD-EPI) 01/16/2024 06:28:59 34 Below low normal >=60 (mL/min) Final eGFR is calculated based on the CKD-EPI 2020 equation Sodium 01/16/2024 06:28:59 142 135-146 (m mol/L) Final Potassium 01/16/2024 06:28:59 4.4 3.5-5.1 (m mol/L) Final Cl 01/16/2024 06:28:59 108 Above high normal 98 -107 (mmol/L) Final CO2 01/16/2024 06:28:59 24 22-32 (mmo l/L) Final Anion gap 01/16/2024 06:28:59 10 7-15 (mmol /L) Final Glucose 01/16/2024 06:28:59 85 70-120 (mg /dL) Final Calcium 01/16/2024 06:28:59 9.1 8.4-10.2 ( mg/dL) Final Performing Location [facility] [place] [address]
--- OUTSIDE RECORDS SUMMARY | 2024-01-24 19:57 | External Medical Summary ---
Author Name Unknown Address Unknown Organization [id number]:[facility] [place] - [address] [facility] [place] [address] Laboratory Report Ordering Provider Test Date Status ALEX BROWER 01/11/2024 05:40:00 Final Observation Date Value Abnormality Reference (Units ) Status TSH 01/11/2024 05:40:00 1.26 0.27-4.20 (uIU/mL) Final Performing Location [facility] [place] - [address] [facility] [place] [address]
--- OUTSIDE RECORDS SUMMARY | 2024-01-24 19:57 | External Medical Summary ---
Author Name Unknown Address Unknown Organization [id number]:[facility] [place] [address] Laboratory Report Ordering Provider Test Date Status WILL GUTIERREZ 01/09/2024 06:00:00 Final Observation Date Value Abnormality Reference (Units ) Status BUN 01/09/2024 06:00:00 42 Above high normal 6-20 (mg/dL) Final Creatinine 01/09/2024 06:00:00 1.6 Above high normal 0.5-1.0 (mg/dL) Final Glomerular filtration rate/1.73 sq M.predicted [Volume Rate/Area] in Serum, Plasma or Blood by Creatinine-based formula (CKD-EPI) 01/09/2024 06:00:00 32 Below low normal >=60 (mL/min) Final eGFR is calculated based on the CKD-EPI 2020 equation Sodium 01/09/2024 06:00:00 141 135-146 (m mol/L) Final Potassium 01/09/2024 06:00:00 4.5 3.5-5.1 (m mol/L) Final Cl 01/09/2024 06:00:00 106 98-107 (mm ol/L) Final CO2 01/09/2024 06:00:00 23 22-32 (mmo l/L) Final Anion gap 01/09/2024 06:00:00 12 7-15 (mmol /L) Final Glucose 01/09/2024 06:00:00 81 70-120 (mg /dL) Final Calcium 01/09/2024 06:00:00 8.8 8.4-10.2 ( mg/dL) Final Performing Location [facility] [place] [address]
--- OUTSIDE RECORDS SUMMARY | 2024-01-24 19:57 | External Medical Summary ---
Author Name Unknown Address Unknown Organization [id number]:[facility] [place] [address] Laboratory Report Ordering Provider Test Date Status WILL GUTIERREZ 01/16/2024 06:28:59 Final Observation Date Value Abnormality Reference (Units ) Status WBC, Total 01/16/2024 06:28:59 6.74 4.00-10.8 0 (K/uL) Final RBC 01/16/2024 06:28:59 3.47 3.85-5.15 (M/uL) Final Hemoglobin 01/16/2024 06:28:59 10.6 Below low normal 12 .0-15.3 (g/dL) Final HCT 01/16/2024 06:28:59 34.7 Below low normal 36. 0-45.2 (%) Final MCV 01/16/2024 06:28:59 100.0 81.5-97.5 (fL) Final MCH 01/16/2024 06:28:59 30.5 27.0-34.0 (pg) Final MCHC 01/16/2024 06:28:59 30.5 32.0-36.0 (g/dL) Final RDW 01/16/2024 06:28:59 13.2 11.5-15.5 (%) Final Platelets 01/16/2024 06:28:59 206 140-400 (K /uL) Final MPV 01/16/2024 06:28:59 10.4 6.6-11.1 ( fL) Final Performing Location [facility] [place] [address]
[2024-01-25] MEDS: LEVOTHYROXINE SODIUM 75 MCG TABLET PO SCH (05:49)
[2024-01-25 06:22] LABS: Basophils # (auto) 0.04 K/uL (0.00-0.20); Basophils % (auto) 0.7 %; Eosinophils # (auto) 0.22 K/uL (0.00-0.50); Eosinophils % (auto) 3.6 %; Hematocrit (blood only) 34.6 % (37.0-47.0); Hemoglobin 11.2 g/dl (12.0-16.0); Immature Granulocytes # (auto) 0.04 K/uL (0.01-0.20); Immature Granulocytes % (auto) 0.7 %; Lymphocytes # (auto) 1.19 K/uL (1.20-3.40); Lymphocytes % (auto) 19.4 %; Mean Corpuscular Hemoglobin 31.2 pg (25.0-34.0); Mean Corpuscular Hgb Conc 32.4 g/dL (32.0-36.0); Mean Corpuscular Volume 96.4 fL (80.0-100.0); Mean Platelet Volume 9.6 fL (9.4-12.4); Monocytes # (auto) 0.49 K/uL (0.11-0.59); Neutrophils # (auto) 4.16 K/uL (1.40-6.50); Neutrophils % (auto) 67.6 %; Platelet Count 213 K/uL (130-400); RDW Coefficient of Variation 12.8 % (11.5-14.5); Red Blood Count 3.59 M/uL (4.20-5.40); White Blood Count 6.14 K/ul (4.8-10.8)
[2024-01-25 06:46] LABS: Albumin Globulin Ratio 1.1 (0.9-2); Albumin Level 3.4 gm/dl (3.4-5.0); BUN Creatinine Ratio 20.7 (10-20); Bilirubin,Total 0.5 mg/dl (0.2-1.0); Calcium 8.3 mg/dl (8.6-10.3); Creatinine Clr Calc Pharmacy 23.9 ml/min; Est GFR (African American) 35.4 ml/min; Est GFR (Non-African American) 30.6 ml/min; Magnesium 1.6 mg/dl (1.7-2.4); Potassium 4.7 mmol/L (3.5-5.1); Total Protein 6.4 gm/dl (6.0-8.3)
[2024-01-25] MEDS: POLYETHYLENE (MIRALAX) 17 GM PACK PO SCH (08:15)
[2024-01-25] MEDS: UMECLIDINIUM/VILANTEROL 62.5/25MCG 7 PUFFS/INHALER INH SCH (08:15)
[2024-01-25] MEDS: CLOPIDOGREL BISULFATE 75 MG TAB PO SCH (08:16)
[2024-01-25] MEDS: ASPIRIN 81 MG ECTAB PO SCH (08:16)
[2024-01-25] MEDS: MAGNESIUM OXIDE 400 MG TAB PO SCH (08:16)
[2024-01-25] MEDS: DOCUSATE SODIUM/SENNA 50/8.6MG TAB PO SCH (08:16)
[2024-01-25] MEDS: ROSUVASTATIN CALCIUM 20 MG TAB PO SCH (08:17)
[2024-01-25 08:48] LABS: INR 1.1 (0.9-1.1); Prothrombin Time 11.6 Seconds (9.0-12.0)
--- NOTE | 2024-01-25 13:58 | Communication Note ---
Date of Service: January 25, 2024 By CMS guidelines, a determination that the admission or continued stay is not medically necessary has been made by a member of the UR committee and a physicia n for this hospital stay, therefore a Code 44 will be completed and the Inpatient admission will be changed to outpatient.
--- NOTE | 2024-01-25 13:59 | Communication Note ---
Date of Service: January 25, 2024 By CMS guidelines, a determination that the admission or continued stay is not medically necessary has been made by a member of the UR committee and a physici an for this hospital stay, therefore a Code 44 will be completed and the Inpatient admission will be changed to outpatient.
--- NOTE | 2024-01-25 17:07 | Discharge Summary ---
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 The patient was admitted to [facility] from 01/04/24-01/08/24 after sustaining a fall at home. Please see discharge summary from 01/08/24 for full details. Neurology and Vascular surgery were consult and thought her symptoms of dizziness/lightheadedness/syncope were not related to her new CVA's or known v ascular disease but due to hypotension/orthostasis/vasovagal episodes. The patient was started on dual antiplatelet therapy and Crestor for her CVA's. Her Dyazide was stopped to help prevent recurrent hypotension/syncope. She was treated for possible UTI and was discharged with a 6 day course of Cefdinir. The patient was discharged to [facility] and was recently discharged back to her independent living facility. In the ED today, she was initially noted to be stable. Labs were significant for an initial high sen trop of 53 --> 54 on 2 hour repeat, TSH was WNL, and Influenza/Covid 19/RSV screens were negative. CT of the head/petros wo con and initial CXR were read as negative for acute findings. The patient was ordered 250 cc NSS, 1gm IV tylenol, and 4 mg IV zofran with initial plans to admit back to [facility]. The ED staff reported a communication error and the patient was given 1250 cc NSS instead of 250 cc as ordered. The patient subsequently developed respiratory distress, hypoxia with SpO2 in the mid 80's on RA, and new pulmonary edema on repeat chest xray.Prior to admission the patient was given 60 mg IV lasix and was placed on Bipap. At the time of the exam the patient was sitting in bed, in no acute distress, with bipap in place. She states she felt comfortable with the current bipap settings and did not feel as though she was having to work hard to breath. She confirms that she has been experiencing the same lightheadedness/dizziness and ambulatory dysfunction which she presented with last admission. However, she feels as though these symptoms have been getting worse since being discharged back home. She denies new neurologic symptoms, changes in vision, hearing, taste, or smell, chest pain, abd pain, nausea, vomiting, diarrhea, dysuria, hematuria, LE swelling. We discussed code status, the patient is alert and completely oriented. She would want full resuscitation in the event of cardiac or respiratory failure. Attempted to call patient's Daughter, Isha Higuera ([phone]) but was sent to voicemail. The ED staff did confirm they spoke with the patient's daughter who explained that they have been working on permanent placement in a alf facility. Please refer to Dr. Lowe' attestation for any changes to the treatment plan Admission Exam Per Admitting Provider General: In no acute distress, stated age, well-nourished, non-toxic appearing HEENT: Normocephalic, atraumatic, no scleral icterus, pupils around round, symmetrical, and reactive to light, currently with bipap mask in place and without air leak, trachea midline, no thyromegaly Chest/Pulm: No respiratory distress, symmetrical chest expansion, rales and crackles noted in the BL lower and mid lung fuentes, BL upper lung fuentes are CTA Cardiac: RRR, no murmurs noted Abdomen: Negative for ascites and bruising, normoactive bowel sounds, soft, non- tender to palpation throughout Musculoskeletal: Symmetrical and without signs of acute trauma, upper and lower extremities with full ROM, no atrophy, spasticity, or flaccidity Extremities: Radial, dorsalis pedis, and posterior tibial pulses are intact and symmetrical, no edema noted in the BL LE's Skin: Warm, dry, no rashes , lesions, or scars noted Neuro: Alert and oriented to person, place, month, year, and president, no focal defects, symmetrical strength in the BL upper and lower extremities Psych: No acute distress, calm and cooperative during the exam Principal Dx & Hospital Course #1 = Principal Diagnosis (1) Acute respiratory failure with hypoxia: -Initially presented to the [facility] ED in stable condition for ongoing dizziness/lightheadedness and ambulatory dysfunction since her admission earlier this month -Was accidentally given 1250 cc NSS instead of the 250 cc NSS bolus initially ordered -Subsequently went into acute respiratory failure with hypoxia in the mid 80's on RA, tachypnea, and signs of pulmonary edema on repeat CXR -Was given 60 mg IV lasix and placed on Bipap in the ED, currently comfortable and in no respiratory distress -Monitor intake/output Q-sift -Incentive spirometry, flutter therapy, prn O2 to keep SpO2 between 89-92% -On day of discharge, patient was stable at 95% on room air (2) CVA (cerebral vascular accident): -No new neuro defects since last admission -Continue aspirin and plavix for now -Per DC summary, patient should begin Plavix Monotherapy on 01/26/24 -Continue statin (3) Acute HFrEF (heart failure with reduced ejection fraction): -Acute exacerbation of chronic heart failure with reduced EF -Likely due to patient receiving 1250 cc of NSS instead of 250 cc NSS ordered by ED staff -Monitored kidney function in setting of *Chronic kidney disease, stage 4 -Improved after Bipap and IV Lasix (4) Ambulatory dysfunction: -Patient with ongoing ambulatory dysfunction since last admission -Was recently discharged back to independent living from [facility] -Family has been working on placement at SNF as patient requires additional care -Fall precautions ordered - Discharged to [facility] (5) Elevated troponin: -Initial high sen trop of 53 -->54 on 2 hour repeat -Patient denies chest pain, no acute ST segment or T-wave changes -Was likely due to *Demand ischemia, and her troponin was elevated last admission as well (6) UTI (urinary tract infection) due to Enterococcus: -Experienced increased urinary frequency/urgency last admission -UA was reportedly positive, patient was discharged on a 6 day course of Cefdinir while urine cultures were pending -Final urine cultures results show group B strep and Staph Aureus (pansensitive) -Patient did complete her course of Cefdinir outpatient -Patient denies current urinary symptoms, no leukocytosis -Repeat UA on this admission. Asymptomatic. No need for further antibiotics at this time. (7) Hypothyroidism: -Continue levothyroxine (8) HTN (hypertension): -Currently stable (9) COPD (chronic obstructive pulmonary disease): -Was not in a COPD exacerbation on arrival -Does not have wheezing on lung exam -Continue home Anoro Ellipta with PRN albuterol -Incentive spirometry/flutter therapy Plan Discharged to [facility] Discharge Exam General: No acute distress, nondiaphoretic, well-developed, well-nourished. Skin: The skin was without rashes, erythema, edema, or bruising. Cardiac: Regular rate and rhythm without murmurs gallops or rubs. Pulm: Clear to auscultation bilaterally without wheezes, rales or rhonchi. No retractions or accessory muscle use. Abdominal: Positive bowel sounds x 4. Soft, nontender, without masses or organomegaly. No guarding or rebound tenderness. Neuro: A&O x3. No focal neurological deficits. Updated Medication List Medication Instructions Recorded Confirmed Type cefdinir 300 mg capsule 0 mg PO DAILY 01/24/24 01/24/24 History Saccharomyces boulardii 250 mg 250 mg PO BID #20 caps 01/25/24 Rx capsule (Florastor) albuterol sulfate 90 mcg/actuation 2 puff inhalation Q4H PRN 01/25/24 Rx aerosol inhaler Shortness Of Breath #1 g aspirin 81 mg tablet,delayed 81 mg PO DAILY 17 days #17 tabs 01/25/24 Rx release calcium carbonate (Calcium 600) 1,200 mg (2 x 600 mg calcium 01/25/24 Rx (1,500 mg)) PO DAILY #30 tabs carboxymethylcellulose sodium 1 % 1 drp ophthalmic (eye) BID #15 mL 01/25/24 Rx eye liquid gel drops (Refresh Liquigel) cholecalciferol (vitamin D3) 125 125 mcg PO DAILY #30 tabs 01/25/24 Rx mcg (5,000 unit) tablet clopidogrel 75 mg tablet 75 mg PO QAM #30 tabs 01/25/24 Rx cranberry fruit concentrate 250 mg 250 mg PO BID #20 tabs 01/25/24 Rx chewable tablet (Azo Cranberry) diclofenac sodium 1 % topical gel See Rx Instructions .Route 01/25/24 Rx .COMPLEX #300 grams fluticasone propionate 50 1 - 2 spray intranasal DAILY #18.2 01/25/24 Rx mcg/actuation nasal mL spray,suspension levothyroxine 75 mcg capsule 75 mcg PO DAILY #90 caps 01/25/24 Rx lisinopril 10 mg tablet 10 mg PO DAILY #90 tabs 01/25/24 Rx magnesium 250 mg tablet 250 mg PO DAILY #30 tabs 01/25/24 Rx nitroglycerin 0.4 mg sublingual 0.4 mg sublingual UD PRN chest 01/25/24 Rx tablet (Nitrostat) pain #1 btl polyethylene glycol 3350 17 gram 17 g PO DAILY #30 ea 01/25/24 Rx oral powder packet (Miralax) rosuvastatin 20 mg tablet (Crestor) 20 mg PO QAM #30 tabs 01/25/24 Rx sennosides 8.6 mg-docusate sodium 1 tab PO QAM #30 tabs 01/25/24 Rx 50 mg tablet (Senokot-S) umeclidinium 62.5 mcg-vilanterol 1 inh inhalation DAILY #14 ea 01/25/24 Rx 25 mcg/actuation powdr for inhalation (Anoro Ellipta) vitamins A,C,O-ojah-nmansu 4,296 1 cap PO DAILY #30 caps 01/25/24 Rx mcg-226 mg-90 mg capsule (PreserVision AREDS) Hospital Stay Data Consultations 01/24/24 14:08 ED Decision to Admit Stat Diagnostic Imagining Performed 01/24/24 10:29 CT head/brain wo con Stat Pending Results Patient Have Any Pending Studies at Discharge: No Discharge Instructions Given to Patient (Per Discharging Provider) Mrs. Perkins, You are being discharged from the hospital to a personal fdc ([facility]). Your medications have been prescribed and sent to their preferred pharmacy. Continue taking your medications as prescribed. It was a pleasure taking care of you while you were in the hospital, Sherice Juarez PA-C Total Time Total Time Spent Total Time Spent (In Minutes): Greater than 30 minutes spent completing this discharge process including direct patient care, medication reconciliation, documentation, review of labs and images, and coordination of care. Coding Level of Care Code 66082 INP/OBS DISCH >30 MIN Diagnoses Acute respiratory failure with hypoxia J96.01 CVA (cerebral vascular accident) I63.9 Acute HFrEF (heart failure with reduced ejection fraction) I50.21 Ambulatory dysfunction R26.2 Elevated troponin R77.8 UTI (urinary tract infection) due to Enterococcus N39.0; B95.2 Hypothyroidism E03.9 HTN (hypertension) I10 COPD (chronic obstructive pulmonary disease) J44.9
== END 2024-01-25 14:54 | disposition home or self-care (01) | DRG 291 ==
LOC: ED 09:22 → OBSVTOIN 14:38 → 4W 14:38 → SUATTDRO 14:38 → INTOOBSV 14:38 → 4W 16:31